=== PATIENT | female | born 1955 | race Caucasian/White ===

== ENCOUNTER 2023-03-22 12:36 | Outpatient (OUT) | payer MEDICARE, SELFPAY ==
--- NOTE | 2023-03-22 12:49 | XR_ITS ---
The [address] [address] Patient Name: NURY RODRIGUEZ MRN: [id number] date: 1955 Sex: F Assigned Patient Location: LAB Current Patient Location: LAB Accession/Order Number: [id number] Exam Date: 03/22/2023 12:52 Report Date: 03/22/2023 20:35 At the request of: SHAIKH NANCY Procedure: XR finger LT min 2V EXAM: XR finger LT min 2V HISTORY: Left thumb pain M79.645 . Soft tissue lump for 3 months. COMPARISON: None. TECHNIQUE: 2 views of the left thumb were obtained. FINDINGS: There is no evidence of an acute fracture or dislocation. There is mild to moderate narrowing of the first carpometacarpal joint and the interphalangeal joint of the thumb. No other significant osseous abnormality is identified. XR/XR finger LT min 2V IMPRESSION: No apparent acute fracture or dislocation. Some degenerative changes are present, as described. No focal abnormality is seen in the deep soft tissues. Electronically authenticated by: CAMERON VELEZ Date: 03/22/2023 20:35
[2023-03-22 14:25] LABS: Chol HDL Ratio 3.2; Cholesterol 214 mg/dL (<=200); HDL Cholesterol 66 mg/dL (40-60); Triglycerides 186 mg/dL (<=150); VLDL CHOLESTEROL 37.2 mg/dL
== END 2023-03-22 12:37 | disposition home or self-care (01) ==
LOC: LAB 12:40
PROVIDERS: PCP Internal Medicine; Visit Provider Internal Medicine
DX: E78.5 Hyperlipidemia, unspecified (principal); M79.645 Pain in left finger(s)
CPT/HCPCS: 36415; 73140; 80061

== ENCOUNTER 2023-08-28 09:23 | Outpatient (OUT) | payer MEDICARE, SELFPAY ==
--- NOTE | 2023-08-28 09:54 | CT_ITS ---
[address] [address] Patient Name: NURY RODRIGUEZ MRN: [id number] date: 1955 Sex: F Assigned Patient Location: CT Current Patient Location: CT Accession/Order Number: [id number] Exam Date: 08/28/2023 09:50 Report Date: 08/28/2023 10:21 At the request of: SHAIKH NANCY Procedure: CT lung screening low-dose EXAMINATION: CT lung screening low-dose HISTORY: Encounter For Lung Cancer Screening COMPARISON: 04/05/2022 TECHNIQUE: Axial, Coronal, and Sagittal images were created without the administration of IV contrast material. Dose reduction techniques were achieved by using automated exposure control and/or adjustment of mA and/or kV according to patient size and/or use of iterative reconstruction technique. FINDINGS: LUNGS: Minimal centrilobular and paraseptal emphysema with an upper lobe predominance no new pulmonary nodule or mass PLEURA: No mass, effusion, or pneumothorax. VASCULATURE: No abnormality. VERN: No mass or pathologic adenopathy. MEDIASTINUM: No mass or pathologic adenopathy. CARDIAC: No enlargement, pericardial thickening, or significant calcification. CORONARY ARTERIES: AORTA: No aneurysm or dissection. CHEST WALL: No mass or axillary adenopathy BONES: No bone lesion or fracture. Mild degenerative changes LIMITED ABDOMEN: No suspicious findings. Limited images of the upper abdomen. OTHER: Negative. CT/CT lung screening low-dose IMPRESSION: LUNG SCREENING: Lung-RADS Category 1 Negative. No nodules and definitely benign nodules. Continue annual screening with LDCT in 12 months. Electronically authenticated by: HOLLIE HARDY Date: 08/28/2023 10:21
[2023-08-28 10:22] LABS: Basophils Percent Auto 0.6 % (0.2-2.0); Eosinophils Absolute Auto 0.1 10^3/uL (0.0-0.7); Eosinophils Percent Auto 1.6 % (0.9-7.0); Hemoglobin 13.1 g/dL (12.0-16.0); Immature Granulocytes Abs Auto 0.01 10^3/uL (0.00-0.03); Immature Granulocytes Pct Auto 0.2 % (0.0-0.5); Lymphocytes Absolute Auto 2.2 10^3/uL (1.2-3.8); Lymphocytes Percent Auto 43.6 % (20.5-60.0); Mean Corpuscular Volume 96.9 fL (81.0-99.0); Mean Platelet Volume 11.4 fL (9.5-13.5); Monocytes Absolute Auto 0.4 10^3/uL (0.3-0.8); Monocytes Percent Auto 7.6 % (1.7-12.0); Neutrophils Absolute Auto 2.3 10^3/uL (1.4-6.5); Neutrophils Percent Auto 46.4 % (43.0-75.0); Platelet Count 194 10^3/uL (150-450); Red Blood Count 4.23 10^6/uL (4.20-5.40); Red Cell Distribution Width 13.8 % (11.0-15.0)
[2023-08-28 11:17] LABS: Alanine Aminotransferase 26 U/L (14-59); Albumin Globulin Ratio 1.3; Albumin Level 4.1 g/dL (3.4-5.0); Alkaline Phosphatase 81 U/L (46-116); Aspartate Amino Transferase 14 U/L (15-37); BUN Creatinine Ratio 25.7; Bilirubin Total 0.6 mg/dL (0.2-1.0); Calcium 9.1 mg/dL (8.5-10.1); Carbon Dioxide 26.2 mmol/L (21.0-32.0); Chloride 105 mmol/L (98-107); Chol HDL Ratio 3.5; Cholesterol 258 mg/dL (<=200); Estimated GFR (African America >60 (>=60); Estimated GFR (Non-African Ame >60 (>=60); Globulin 3.1 g/dL; Glucose 93 mg/dL (74-106); HDL Cholesterol 74 mg/dL (40-60); Potassium 4.2 mmol/L (3.5-5.1); Sodium 140 mmol/L (136-145); Total Protein 7.2 g/dL (6.4-8.2); Triglycerides 114 mg/dL (<=150); VLDL CHOLESTEROL 22.8 mg/dL
== END 2023-08-28 09:24 | disposition home or self-care (01) ==
LOC: CT 09:24
PROVIDERS: PCP Internal Medicine; Visit Provider Internal Medicine
DX: G25.81 Restless legs syndrome (principal); E78.49 Other hyperlipidemia; Z87.891 Personal history of nicotine dependence; Z12.2 Encounter for screening for malignant neoplasm of respiratory organs
CPT/HCPCS: 36415; 71271; 80053; 80061; 82607; 82728; 85025

== ENCOUNTER 2023-09-17 11:20 | Emergency (ER) | payer MEDICARE, SELFPAY ==
[2023-09-17 11:22] VITALS: BP 122/99; PULSE 115; RESP 20; TEMP 36.6; O2SAT 94; BMI 23.8
--- OUTSIDE RECORDS SUMMARY | 2023-09-17 11:30 | XMS_ITS | CCD ---
Author Name Unknown Address [address] [facility] [address] [place] [address] Organization [facility] Care Team Providers Care Electronic Field Service Engineer Name Role Phone SHAIKH Trino CRUZ Admitting Unavailable SHAIKH Trino CRUZ Attending Unavailable SHAIKH Trino CRUZ Primary Care Unavailable DR HOLLIE HARDY V Consulting Unavailable FASHAIKH Trino SALEH Consulting Unavailable SHAIKH Trino CRUZ Admitting Unavailable SHAIKH Trino CRUZ Attending Unavailable SHAIKH Trino CRUZ Consulting Unavailable MD Luis Carlton II Attending Provider [phone] Luis Carlton II Unavailable Luis Carlton II Attending Fabiano SANDERSON FAMILY, PHYSICIAN Primary Care Unavailable Luis Carlton II Admitting UnavailLuis Talavera II Attending Unavailnathan e NO FAMILY, PHYSICIAN Primary Care Unavailable Luis Carlton II Admitting UnavailSHAIKH Izaguirre Attending Unavailable Medications Current Medications Medication Drug Class(es) Dates Sig (Normalized) Sig (Original) atorvastatin 20 mg oral tablet (3 sources) HMG-CoA Reductase Inhibitor Atorvastatin Calcium 20 MG Oral for 90 Days Active calcium carbonate 600 mg / cholecalciferol 125 unt oral tablet (3 sources) Vitamin D Start: 05-12-2023 take 1 tablet by mouth every twelve hours Calcium-Vitamin D 600-3.125 MG-MCG 1 tablet Orally Twice a day for 30 day(s) Apr, Active meloxicam 15 mg oral tablet (3 sources) Nonsteroidal Anti-inflammatory Drug Start: 05-12-2023 take 1 tablet by mouth every twenty-four hours Meloxicam 15 MG 1 tablet Orally Once a day for 30 days Apr, Active naproxen 500 mg oral tablet (3 sources) Nonsteroidal Anti-inflammatory Drug take 1 tablet by mouth twice daily as needed for pain Naproxen 500 MG TAKE 1 TABLET BY MOUTH 2 TIMES PER DAY NEEDED FOR PAIN Oral for 90 Days Active traMADol hydrochloride 50 mg oral tablet (3 sources) Opioid Agonist take 1 tablet by mouth every twenty-four hours traMADol HCl 50 MG 1 tablet as needed Orally Once a day prn Active Completed/Discontinued Medications Medication Drug Class(es) Dates Sig (Normalized) Sig (Original) triamcinolone acetonide 40 mg/ml injectable suspension (4 sources) Corticosteroid Start: 07-13-2023 Kenalog-40 Jun, 40 mg Start: 07-13-2023 Kenalog-40 Jun, 120 mg Problems Active Problems Problem Classification Problem Date Documented Date Episodic/Chronic Disorders of lipid metabolism (4 sources) Hyperlipidemia, unspecified; Translations: [HYPERLIPIDEMIA UNSPECIFIED] Onset: 10-27-2022 Chronic Osteoarthritis (14 sources) Osteoarthritis of left hip joint; Translations: [Unilateral primary osteoarthritis, left hip] Chronic Osteoporosis (2 sources) Age-related osteoporosis without current pathological fracture; Translations: [Age-related osteoporosis without current pathological fracture] Chronic Other aftercare (1 source) Other senior care (current) drug therapy Episodic Other connective tissue disease (2 sources) Impingement syndrome of left shoulder Episodic Other non-traumatic joint disorders (1 source) Pain in left hip Episodic Other nutritional; endocrine; and metabolic disorders (2 sources) Morbid (severe) obesity due to excess calories; Translations: [Obesity, morbid, BMI 50 or higher] Chronic Other screening for suspected conditions (not mental disorders or infectious disease) (5 sources) Encounter for screening mammogram for malignant neoplasm of breast; Translations: [Encounter for screening for malignant neoplasm of respiratory organs] Onset: 04-05-2022 Episodic Unclassified (1 source) Pain in left shoulder; Translations: [Pain in left shoulder] Onset: 07-13-2023 Unclassified (1 source) Pain in left hip; Translations: [Pain in left hip] Onset: 05-12-2023 Past or Other Problems Problem Classification Problem Date Documented Da te Episodic/Chronic Screening and history of mental health and substance abuse codes (1 source) Personal history of nicotine dependence; Translations: [PERSONAL HISTORY OF NICOTINE DEPEND] Onset: 04-10-2022 Episodic Results Test Name Value Interpretation Reference Range Facility XR shoulder LT min 2V*on XR shoulder LT min 2V* [facility] [address] [place] [address] XRay Report Signed Patient: Nadya Rodriguez MR#: [id number] : 1955 Acct:[id number] Age/Sex: 68 / F ADM Date: 07/13/23 Loc: [facility] Room: Type: [facility] Attending Dr: Luis Carlton II, MD Copies to: Luis Carlton MD Ordering Provider: Luis Carlton MD Date of Service: 07/13/23 XR/XR shoulder LT min 2V*: PAIN 3 views LEFT shoulder plain film HISTORY: Generalized LEFT shoulder pain for weeks COMPARISON: None ACUTE FINDINGS: None DEGENERATIVE CHANGE: Spurring of acromioclavicular joint and glenohumeral joint. Adequate joint space. SOFT TISSUE FINDINGS: Unremarkable JOINT EFFUSION: None POSTOP CHANGES: None BONY MINERALIZATION: Adequate XR/XR shoulder LT min 2V* IMPRESSION: Degenerative change. Impression dictated by: Angel Luis King M.D.07/13/2023 2:02 PM Dictation Location: [place] [address] Transcribed By: [facility] 07/13/23 140 Dictated By: Angel Luis King DO 07/13/23 140 Signed By: 07/13/23 140 Normal [facility] XR shoulder LT min 2V* [facility] [employer] Other XR shoulder LT min 2V* [facility] [employer] Other XR shoulder LT min 2V* [address] [facility] [employer] Other XR shoulder LT min 2V* [place] [address] [employer] [facility] [employer] Other XR shoulder LT min 2V* XRay Report [facility] Other XR shoulder LT min 2V* Signed [facility] Other XR shoulder LT min 2V* Patient: Nadya Rodriguez MR#: [id number] [facility] Other XR shoulder LT min 2V* 1147 [employer] Other XR shoulder LT min 2V* : 1955 Acct:[id number] [facility] Other XR shoulder LT min 2V* Age/Sex: 68 / F ADM Date: 07/13/23 [facility] Other XR shoulder LT min 2V* Loc: [facility] Room: Type: REG CLI [facility] Other XR shoulder LT min 2V* Attending Dr: Luis Carlton II, MD [facility] Other XR shoulder LT min 2V* Copies to: Luis Carlton MD [facility] Other XR shoulder LT min 2V* Ordering Provider: Luis Carlton MD [facility] Other XR shoulder LT min 2V* Date of Service: 07/13/23 [employer] Other XR shoulder LT min 2V* XR/XR shoulder LT min 2V*: PAIN [employer] Other XR shoulder LT min 2V* 3 views LEFT shoulder plain film [employer] Other XR shoulder LT min 2V* HISTORY: Generalized LEFT shoulder pain for weeks [facility] Other XR shoulder LT min 2V* COMPARISON: None [employer] Other XR shoulder LT min 2V* ACUTE FINDINGS: None [facility] Other XR shoulder LT min 2V* DEGENERATIVE CHANGE: Spurring of acromioclavicular joint and glenohumeral joint. Adequate joint [employer] Other XR shoulder LT min 2V* space. [employer] Other XR shoulder LT min 2V* SOFT TISSUE FINDINGS: Unremarkable [facility] Other XR shoulder LT min 2V* JOINT EFFUSION: None [facility] Other XR shoulder LT min 2V* POSTOP CHANGES: None [facility] Other XR shoulder LT min 2V* BONY MINERALIZATION: Adequate [facility] Other XR shoulder LT min 2V* XR/XR shoulder LT min 2V* [employer] Other XR shoulder LT min 2V* IMPRESSION: Degenerative change. [facility] Other XR shoulder LT min 2V* Impression dictated by: Angel Luis King M.D.07/13/2023 2:02 PM [facility] Other XR shoulder LT min 2V* Dictation Location: [place] [address] [employer] Other XR shoulder LT min 2V* Transcribed By: [facility] 07/13/23 [facility] [employer] Other XR shoulder LT min 2V* Dictated By: Angel Luis King DO 07/13/23 [facility] [employer] Other XR shoulder LT min 2V* Signed By: [employer] Other XR shoulder LT min 2V* 07/13/23 [facility] [employer] Other XR hip LT min 2V(w/wo pelvis )*on 05-12-2023 XR hip LT min 2V(w/wo pelvis)* [facility] [place] [address] [place] [address] XRay Report Signed Patient: Nadya Rodriguez MR#: [id number] : 1955 Acct:[id number] Age/Sex: 68 / F ADM Date: 05/12/23 Loc: [facility] Room: Type: [facility] CLI Attending Dr: Luis Carlton II, MD Copies to: Luis Carlton MD Ordering Provider: Luis Carlton MD Date of Service: 05/12/23 XR/XR hip LT min 2V(w/wo pelvis)*: PAIN ([id number]) XR/XR knee LT 4V*: PAIN CLINICAL DATA: Posterior left hip pain radiating to the groin and medial left knee pain and swelling. No recent injury. AP PELVIS AND LEFT HIP - 2 views COMPARISON: None Weightbearing AP view the pelvis and crosstable lateral view of the left hip were obtained. There is a right hip prosthesis which appears intact and in appropriate position. There is no acute fracture or dislocation. There is narrowing of the superior hip joint space on the left. There is mild hypertrophy at the superior acetabulum and mild to moderate at the periphery of the femoral head. The SI joints are intact and show minor sclerosis. There is dextroscoliotic curvature and degenerative change involving the lower imaged lumbar spine. No soft tissue abnormalities are noted. XR/XR knee LT 4V* IMPRESSION: DEGENERATIVE CHANGES OF THE LEFT HIP AND LOWER LUMBAR SPINE WHERE SCOLIOTIC CURVATURE IS ALSO PRESENT. LEFT KNEE - 4 views COMPARISON: None Standing AP, lateral, skiers and sunrise views were obtained. There is no acute fracture or dislocation. There is slight medial subluxation of the patella. There is narrowing of the medial tibiofemoral joint compartment with bone to bone contact. Tricompartment marginal spurring is seen. There is a chronic-appearing bony ossicle along the margin of the medial femoral condyle. There is a trace amount of joint fluid. No soft tissue swelling is noted. IMPRESSION: DEGENERATIVE CHANGES, DESCRIBED. Impression dictated by: Mariel Melchor M.D.05/12/2023 2:13 PM Dictation Location: [place] [address] Transcribed By: [facility] 05/12/23 1413 Dictated By: Mariel Melchor MD 05/12/23 1408 Signed By: 05/12/23 1413 Normal [facility] LIPID PROFILEon 10-27-2022 CHOL-HDL RATIO NORM SEE BELOW Normal [facility] Comment on above: Result Comment: 3.3 - 4.4 LOW RISK 4.4 - 7.1 AVERAGE RISK 7.1 - 11.0 MODERATE RISK >11.0 HIGH RISK Performed By: #### L IPID, LIVER #### [facility] [address] [place] [address] Dr. Favio Cueto Cholesterol [Mass/Vol] 168 mg/dL Normal <=200 [facility] Comment on above: Performed By: #### L IPID, LIVER #### [facility] [address] [place] [address] [address] Favio Cueot Cholesterol in HDL [Mass/Vol] 61 mg/dL Critically high 40-60 [facility] Comment on above: Performed By: #### L IPID, LIVER #### [facility] [address] [place] [address] [address] Favio Cueto Cholesterol in LDL [Mass/Vol] 91.4 mg/dL Normal [facility] Comment on above: Performed By: #### L IPID, LIVER #### [facility] [address] [place] [address] [address] Favio Cueto Cholesterol.total /Cholesterol in HDL [Mass ratio] 2.8 {ratio} Normal [facility] Comment on above: Performed By: #### L IPID, LIVER #### [facility] [address] [place] [address] [address] Favio Cueto HDL NORMAL > or = 60 mg/dl - LO W CARDIOVASCULAR RISK <40 mg/dl - HIGH CARDIOVASCULAR RISK Normal [facility] Comment on above: Performed By: #### L IPID, LIVER #### [facility] [address] [place] [address] Dr. Favio Cueto LDL CALC NORMAL SEE BELOW Normal [facility] Comment on above: Result Comment: <100 mg/dl OPTIMAL 100 - 129 mg/dl NEAR OR ABOVE OPTIMAL 130 - 159 mg/dl BORDERLINE HIGH 160 - 189 mg/dl HIGH >190 mg/dl VERY HIGH Performed By: #### L IPID, LIVER #### [facility] [address] [place] [address] [address] Favio Cueto Triglyceride [Mass/Vol] 78 mg/dL Normal <=150 [facility] Comment on above: Performed By: #### L IPID, LIVER #### [facility] [address] [place] [address] [address] Favio Cueto VLDL CALC 15.6 mg/dL Normal [facility] Comment on above: Performed By: #### L IPID, LIVER #### [facility] [address] [place] [address] [address] Favio Cueto LIVER PROFILEon 10-27-2022 Albumin [Mass/Vol] 4.3 g/dL Normal 3.4-5.0 [facility] Comment on above: Performed By: #### L IPID, LIVER #### [facility] [address] [place] [address] [address] Favio Cueto Albumin/Globulin [Mass ratio] 1.5 {ratio} Normal [facility] Comment on above: Performed By: #### L IPID, LIVER #### [facility] [address] [place] [address] [address] Favio Cueto ALP [Catalytic activity/Vol] 55 U/L Normal 46-116 [facility] Comment on above: Performed By: #### L IPID, LIVER #### [facility] [address] [place] [address] Dr. Favio Cueto ALT [Catalytic activity/Vol] 23 U/L Normal 14-59 [facility] Comment on above: Performed By: #### L IPID, LIVER #### [facility] [address] [place] [address] Dr. Favio Cueto AST [Catalytic activity/Vol] 15 U/L Normal 15-37 [facility] Comment on above: Performed By: #### L IPID, LIVER #### [facility] [address] [place] [address] [address] Favio Cueto BILI, CONJUGATED 0.2 mg/dL Normal 0.0-0.2 [facility] Comment on above: Performed By: #### L IPID, LIVER #### [facility] [address] [place] [address] [address] Favio Cueto Bilirubin [Mass/Vol] 0.7 mg/dL Normal 0.2-1.0 [facility] Comment on above: Performed By: #### L IPID, LIVER #### [facility] [address] [place] [address] [address] Favio Cueto Globulin (S) [Mass/Vol] 2.8 g/dL Normal [facility] Comment on above: Performed By: #### L IPID, LIVER #### [facility] [address] [place], [place] [address] Dr. Favio Cueto Protein [Mass/Vol] 7.1 g/dL Normal 6.4-8.2 [facility] Comment on above: Performed By: #### L IPID, LIVER #### [facility] [address] [place], [place] [address] Dr. Favio Cueto MG MAMM SCREEN 3D ARCHIE CADon 10-27-2022 MG MAMM SCREEN 3D ARCHIE CAD Patient: NADYA RODRIGUEZ Exam Date: 10/27/2022 : 1955 Gender:F Ordering : SHAIKH Rosa CRUZ . Admission #: [id number] Family : Order #: [id number] CLICK HERE TO VIEW EXAM RADIOLOGY REPORT PROCEDURE: MAMMOGRAM SCREENING 3D BILATERAL CAD COMPARISON: None. INDICATIONS: Screening mammography Calculator Name NCI Breast Cancer Risk Assessment Tool 5 Year Breast Cancer Risk 1.30% Lifetime Breast Cancer Risk 5.00% Personal Breast Cancer No Personal Ovarian Cancer No Treatments None Family Cancers None LOCATION: [facility] BREAST COMPOSITION: Heterogeneously dense,which may obscure small masses. FINDINGS: DIAGNOSTIC CATEGORY 1--NEGATIVE. Scattered benign-appearing calcifications are present. Scattered benign-appearing lymph nodes are present. RIGHT BREAST: No significant suspicious finding. LEFT BREAST: No significant suspicious finding. RECOMMENDATIONS: ROUTINE MAMMOGRAM AND CLINICAL EVALUATION IN 12 MONTHS. PLEASE NOTE: A NORMAL MAMMOGRAM DOES NOT EXCLUDE THE POSSIBILITY OF BREAST CANCER. A CLINICALLY SUSPICIOUS PALPABLE LUMP SHOULD BE BIOPSIED. Dictated by: Hollie Hardy MD on 11/23/2022 at 08:15 Approved by: Hollie Hardy MD on 11/23/2022 at 08:22 Normal [facility] CT LUNG CANCER SCREENINGon 0 04-05-2022 CT LUNG CANCER SCREENING EXAMINATION: CT LUNG CANCER SCREENING HISTORY: Nicotine dependence COMPARISON: No relevant comparison available. TECHNIQUE: Axial, Coronal, and Sagittal images were created without the administration of IV contrast material. Dose reduction techniques were achieved by using automated exposure control and/or adjustment of mA and/or kV according to patient size and/or use of iterative reconstruction technique. FINDINGS: LUNGS: Minimal emphysema with a biapical predominance. Mild peribronchial thickening. No significant pulmonary nodule or mass. PLEURA: No mass, effusion, or pneumothorax. VASCULATURE: No abnormality. VERN: No mass or pathologic adenopathy. MEDIASTINUM: No mass or pathologic adenopathy. CARDIAC: No enlargement or pericardial effusion. Coronary atherosclerosis. AORTA: No aneurysm or dissection. CHEST WALL: No mass or axillary adenopathy BONES: No bone lesion or fracture. LIMITED ABDOMEN: No suspicious findings. Limited images of the upper abdomen. OTHER: Negative. IMPRESSION: LUNG SCREENING: Lung-RADS Category 1 Negative. No nodules and definitely benign nodules. Continue annual screening with LDCT in 12 months. Electronically authenticated by: HOLLIE HARDY Date: 2022-04-05 10:37 Normal [facility] Encounters Encounter Date Encounter Type Care Provider Facility Start: 08-23-2023 End: 08-23-2023 ambulatory Luis Carlton II Other [facility] Other Start: 08-23-2023 Office outpatient vi sit 40 minutes Luis Carlton II [facility] Start: 08-08-2023 End: 08-08-2023 ambulatory SHAIKH ANGELDanna Not Available Start: 07-13-2023 Office outpatient vi sit 25 minutes Luis Carlton II [facility] Start: 07-13-2023 End: 07-13-2023 ambulatory Luis Carlton II [employer] Other Start: 07-10-2023 End: 07-10-2023 ambulatory Luis Carlton II Other [facility] Other Start: 07-10-2023 Telephone encounter Luis Carlton II [facility] Start: 05-12-2023 End: 05-12-2023 ambulatory Luis Carlton II Facility:[facility] Start: 05-12-2023 End: 05-12-2023 ambulatory MD Luis Carlton II Work Phone: [facility] Work Phone: Start: 05-12-2023 End: 05-12-2023 Patient encounter procedure MD Luis Carlton II Work Phone: [facility] Start: 10-27-2022 End: 10-28-2022 ambulatory OLSEN Trino STAUFFERNMDanna Facility:[facility] Start: 04-05-2022 End: 04-06-2022 ambulatory [facility] Facility: Procedures Date Procedure Procedure Detail Performing Clinician Start: 05-12-2023 Plain X-ray of left hip MD Luis Carlton II Work Phone: Start: 05-12-2023 Radiologic examinati on of knee MD Luis Carlton II Work Phone: Payers Date Payer Category Payer Private Health Insurance [id number] 2023 Self-pay 1957 Medicare [id number] 1955 Unknown [id number] 2.16.84 [id number] 1955 Unknown [id number] 2.16.84 [id number] 1955 Unknown [id number] 2.16.84 [id number] Unknown [id number] 2.16.8 [id number] Unknown [id number] 2.16.8 [id number] Social History Date Type Detail Facility Tobacco smoking status NHIS Unknown if ever smoked [facility] Work Phone: Start: 1955 Sex Assigned At Female F [facility] Sex Assigned At Sex Assigned At Bir th [place] [facility] Other Evaluation note 08-23-2023 Note Date & Type Note Facility 08-23-2023 Evaluation note Encounter Date Diagnosis Assessment Notes Jul, Primary osteoarthritis of left knee (ICD-10 - M17.12) Jul, Primary osteoarthritis of left hip (ICD-10 - M16.12) Jul, Glenohumeral arthritis, left (ICD-10 - M19.012) Jul, Impingement syndrome, shoulder, left (ICD-10 - M75.42) Jul, Obesity, morbid, BMI 50 or higher (ICD-10 - E66.01) Jul, Age-related osteoporosis without current pathological fracture (ICD-10 - M81.0) Jul, 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 We again discussed the concept of referred pain. I explained to her that the fact that she did not get any relief with the injection into her knee suggest that any of the knee pain that she feels is more than likely related to referred pain from her left hip. As result, I ultimately recommended proceeding with a left hip injection versus left total hip arthroplasty. Patient is already had a right total hip arthroplasty and doing actually fantastic. She would prefer to avoid the injection as this would only prolong the process. I think given her deformity and her significant inhibited quality of life this would be warranted to proceed directly with definitive treatment and a left total hip. We also discussed the fact that her mother just had a heart attack and is in the hospital. 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 We did discuss that we will need to hold off on any surgery until she has all things worked out with her mom in regards to providing her caregiver. I explained specifically to the patient that she cannot be a caregiver from her mom and she in fact herself needs a caregiver to recover from her major left hip surgery. 1. Left COLTEN - DVT prophylaxis: Aspirin - Antibiotics: Ancef - NSAID: Celebrex - Implants: [employer]venir Complete, G7 - Disposition: Same-day discharge-she lives at home with her who would be able to help her in the postoperative period. 2. Preop screening labs will be ordered including: - hemoglobin - serum albumin - 25-OH Vit D - HgbA1c - serum cotinine - MRSA nasal culture 3. Patient will obtain preop clearances including: -PCP 4. Once our office has reviewed the above labs and clearances, we will contact the patient to discuss surgery scheduling. Patient is in agreement with the above plan. 5. The risks involved with surgery and postoperative complications were discussed in relation to the patient's nonmodifiable risk factors including but not limited to the following: Hyperlipidemia All questions were answered after discussing these increased risks. The patient voiced understanding of these increased risks and still wishes to proceed with surgery. 6. The risks involved with surgery and postoperative complications were discussed in relation to the patient's modifiable risk factors including but not limited to the following: None identified at this time All questions were answered after discussing these increased risks. The patient voiced understanding of these increased risks and still wishes to proceed with surgery. The patient has tried and failed all conservative treatment options to include: oral anti-inflammato miguel, physical therapy, and assistive devices. We will move forward with the definitive treatment option and schedule the patient for the above mentioned procedure after we have reviewed screening labs and clearances. Patient understands abnormal screening labs or absent clearances could delay their surgery. [facility] Other Evaluation note 07-13-2023 Note Date & Type Note Facility 07-13-2023 Evaluation note Encounter Date Diagnosis Assessment Notes Jun, Primary osteoarthritis of left knee (ICD-10 - M17.12) Jun, Primary osteoarthritis of left hip (ICD-10 - M16.12) Jun, Glenohumeral arthritis, left (ICD-10 - M19.012) Jun, Impingement syndrome, shoulder, left (ICD-10 - M75.42) Jun, Other In regards to the left hip osteoarthritis, we discussed how this can refer pain to the left knee but she also has left knee primary osteoarthritis. I discussed doing a left hip intra-articular steroid injection but at this point she would prefer to start with a left knee intra-articular steroid injection. I think that this is very reasonable given her significant pain into the left knee. After consent was obtained, the left knee was injected with 3cc Kenalog and 7cc bupivicaine using sterile technique. Patient tolerated the injection well. Nonetheless, I explained to her that given both the hip and the knee being [id number] arthritis I still feel that the most important major surgery to discuss first would be a left hip arthroplasty. She agreed. We will hold off on this though until sometime in the first of the year. In regards to the left shoulder, we discussed that her inflammation within the shoulder has led to impingement and decreased range of motion. As result I recommended a left subacromial steroid injection. Patient agreed. Utilizing sterile technique, the left subacromial bursa was injected with 1 cc of Kenalog and 2 cc bupivacaine. Patient tolerated the injection well. We will get her into formal physical therapy for strengthening and range of motion of the left shoulder. I will plan to see her back in 6 weeks for reevaluation. [facility] Other Evaluation note 07-10-2023 Note Date & Type Note Facility 07-10-2023 Evaluation note Encounter Date Diagnosis Assessment Notes Jun, Left hip pain (ICD-10 - M25.552) [facility] Other Evaluation note Note Date & Type Note Facility Evaluation note No assessment information availa [facility] Work Phone: History general Narrative - Reported Note Date & Type Note Facility History general Narrative - Reported Type Medical History hypercholesterolemia Medical History emphysema-mild Surgical History C section x2 Surgical History tonsillectomy Surgical History RTHA Surgical History ear surgery [facility] [employer] Other Summary Purpose Family History No Family History Records FoundNo Family History Records FoundNo Family History Records Found Advance Directives No Advanced Directives Records FoundNo Advanced Directives Records FoundNo Advanced Directives Records Found Additional Source Comments INFORMATION SOURCE (unrecogn ized section and content) DATE CREATED AUTHOR 11/24/2022 [facility] DATE CREATED AUTHOR AUTHOR'S ORGANIZ ATION 07/20/2023 [facility] DATE CREATED AUTHOR AUTHOR'S ORGANIZ ATION 08/09/2023 [facility] EPIC Care Teams (unrecognized sec tion and content) Team Status: Inactive Member Role Status Dates Luis Carlton II, MD Attending Provider Active Goals (unrecognized section and content) Goals may be documented in a n alternate sectionNo InformationNo InformationNo Information REASON FOR VISIT (unrecogniz ed section and content) Med RefillOP SP LT KNEE LT S HOULDER PAIN REQUESTING INJECTION1 MONTH FOR RECORDS PERTAINING TO PATIENTS WHO ARE OR HAVE BEEN ENROLLED IN A CHEMICAL DEPENDENCY/SUBSTANCEABUSE PROGRAM, SOME INFORMATION MAY BE OMITTED. This clinical summary was aggregated from multiple sources. Caution should be exercised in using it in the provision of clinical care. This summary normalizes information from multiple sources, and as a consequence, information in this document may materially change the coding, format and clinical context of patient data. In addition, data may be omitted in some cases. CLINICAL DECISIONS SHOULD BE BASED ON THE PRIMARY CLINICAL RECORDS. [employer] [facility]. provides no warranty or guarantee of the accuracy or completeness of information in this document.
--- NOTE | 2023-09-17 11:31 | CT_ITS ---
The [address] [address] Patient Name: NURY RODRIGUEZ MRN: [facility]:[id number] date: 1955 Sex: F Assigned Patient Location: ER Current Patient Location: Accession/Order Number: [id number] Exam Date: 09/17/2023 11:47 Report Date: 09/17/2023 12:21 At the request of: ELSA ALVARADO Procedure: CT abdomen pelvis w con EXAMINATION: CT abdomen pelvis w con INDICATION: low abd pain. COMPARISON: None. TECHNIQUE: Multiple contiguous axial CT images of the abdomen and pelvis were obtained after the administration of intravenous contrast. Sagittal and coronal reconstructions were performed. Dose reduction techniques were achieved by using: automated exposure control and/or adjustment of mA and /or kV according to patient size and/or use of iterative reconstruction technique. FINDINGS: LOWER CHEST: No significant abnormality. ABDOMEN AND PELVIS: LIVER: Diffuse fatty infiltration of the liver. BILIARY SYSTEM: Decompressed gallbladder. No biliary ductal dilatation. PANCREAS: Unremarkable. SPLEEN: Unremarkable. ADRENAL GLANDS: Normal. URINARY SYSTEM: Small bilateral renal cysts, largest measuring 1.4 cm. No hydronephrosis or urolithiasis. Pelvic floor laxity with at least moderate sized cystocele incompletely imaged on this exam. REPRODUCTIVE: Unremarkable. GASTROINTESTINAL TRACT: Long segment circumferential wall thickening and edema with mild inflammatory stranding of the descending, transverse, and sigmoid colon. The bowel is normal in caliber. Mild colonic diverticulosis without diverticulitis. Normal appendix. VESSELS: Nonaneurysmal abdominal aorta with moderate atherosclerotic calcifications. Patent abdominal vasculature. LYMPH NODES: No adenopathy. PERITONEUM: No ascites or pneumoperitoneum. MUSCULOSKELETAL: SOFT TISSUES: Tiny fat-containing umbilical hernia. BONES: No acute osseous abnormality or suspicious osseous lesion. Right hip arthroplasty noted. LOPEZ: (series:image) CT/CT abdomen pelvis w con IMPRESSION: 1. Colitis involving the transverse, descending and sigmoid colon, likely infectious or inflammatory. 2. Colonic diverticulosis without diverticulitis. 3. Hepatic steatosis. 4. Pelvic floor laxity with cystocele. Electronically authenticated by: ANGELES ROSENBAUM Date: 09/17/2023 12:21
--- NOTE | 2023-09-17 11:33 | ED_ITS ---
HPI - Abdominal Pain General Chief Complaint: Abdominal Pain Stated Complaint: ABDOMINAL PAIN Time Seen by Provider: 09/17/23 11:24 Source: patient Mode of arrival: walk-in History of Present Illness HPI narrative: 68-year-old female presents for lower abdominal pain. She felt constipated and took some milk of magnesia last night about 11:00 PM. She then started having diarrhea and it was bloody, bright red. She complains of bilateral lower abdominal pain. No fever or vomiting and she has never had diverticulitis previously. The pain is moderate and continuous. Related Data Previous Rx's Medication Instructions Recorded ciprofloxacin HCl 500 mg tablet 500 mg PO Q12H #20 tabs 09/17/23 (Cipro) metronidazole 500 mg tablet 500 mg PO TID #30 tabs 09/17/23 Allergies Allergy/AdvReac Type Severity Reaction Status Date / Time No Known Drug Allergies Allergy Verified 09/17/23 11:27 Review of Systems ROS Narrative A ten point review of systems is negative except as noted above. Exam Narrative Exam Narrative: Nurses note and vital signs reviewed and patient is not hypoxic. General: The patient appears mildly uncomfortable and in no apparent distress. Skin: Warm, dry, no pallor noted. There is no rash noted. Head: Normocephalic, atraumatic Eye: Normal conjunctiva, no drainage Ears, Nose, Mouth, and Throat: oral mucosa is moist. Nares patent. Cardiovascular: Regular Rate and Rhythm Respiratory: Patient is in no distress, no accessory muscle use, lungs are clear to auscultation, no wheezing, rales or rhonchi Back: non-tender GI: Tenderness across her lower abdomen without distention or rebound. Musculoskeletal: The patient has no evidence of calf tenderness, no pitting edema, symmetrical pulses noted bilaterally Neurological: A&O, normal speech Psychiatric: Cooperative Constitutional Vital Signs, click to edit/add: Last Vital Signs Temp 97.9 F 09/17/23 11:22 Pulse 115 H 09/17/23 11:22 Resp 20 09/17/23 11:22 BP 122/99 H 09/17/23 11:22 Pulse Ox 94 L 09/17/23 11:22 O2 Del Method Room Air 09/17/23 11:22 Course Vital Signs Vital signs: Vital Signs Temperature 97.9 F 09/17/23 11:22 Pulse Rate 115 H 09/17/23 11:22 Respiratory Rate 20 09/17/23 11:22 Blood Pressure 122/99 H 09/17/23 11:22 Pulse Oximetry 94 L 09/17/23 11:22 Oxygen Delivery Method Room Air 09/17/23 11:22 Temperature 97.9 F 09/17/23 11:22 Pulse Rate 115 H 09/17/23 11:22 Respiratory Rate 20 09/17/23 11:22 Blood Pressure 122/99 H 09/17/23 11:22 Pulse Oximetry 94 L 09/17/23 11:22 Oxygen Delivery Method Room Air 09/17/23 11:22 MDM - Abdominal Pain MDM Narrative Medical decision making narrative: Colitis is identified on the CT scan. Blood work nonspecific. She was given IV Cipro and Flagyl here. We discussed admission versus discharge home and she does not feel that she needs to be admitted to the hospital. She will follow-up with her PCP and return if symptoms worsen. Treatment diagnosis and follow-up were discussed with the patient. Differential Diagnosis Differential diagnosis: Likely abdominal pain, small bowel obstruction and other (Colitis, diverticulitis, gastroenteritis) Lab Data Attestation: I reviewed the patient's lab results. Labs: Lab Results 09/17/23 09/17/23 Range/Units 11:33 12:02 WBC 12.0 H (4.0-11.0) 10^3/uL RBC 4.66 (4.20-5.40) 10^6/uL Hgb 14.7 (12.0-16.0) g/dL Hct 44.7 (36.0-48.0) % MCV 95.9 (81.0-99.0) fL MCH 31.5 (26.7-34.0) pg MCHC 32.9 (29.9-35.2) g/dL RDW 13.7 (11.0-15.0) % Plt Count 195 (150-450) 10^3/uL MPV 11.9 (9.5-13.5) fL Neut % (Auto) 84.6 H (43.0-75.0) % Lymph % (Auto) 8.5 L (20.5-60.0) % [place] % (Auto) 6.3 (1.7-12.0) % Eos % (Auto) 0.0 L (0.9-7.0) % Baso % (Auto) 0.3 (0.2-2.0) % Neut # (Auto) 10.2 H (1.4-6.5) 10^3/uL Lymph # (Auto) 1.0 L (1.2-3.8) 10^3/uL [place] # (Auto) 0.8 (0.3-0.8) 10^3/uL Eos # (Auto) 0.0 (0.0-0.7) 10^3/uL Baso # (Auto) 0.0 (0.0-0.1) 10^3/uL Abs Immat Gran (auto) 0.04 H (0.00-0.03) 10^3/uL Imm/Tot Granulo (auto) 0.3 (0.0-0.5) % Sodium 145 (136-145) mmol/L Potassium 4.0 (3.5-5.1) mmol/L Chloride 106 (98-107) mmol/L Carbon Dioxide 25.2 (21.0-32.0) mmol/L Anion Gap 17.8 BUN 25.0 H (7.0-18.0) mg/dL Creatinine 0.92 (0.55-1.02) mg/dL Est GFR ( Amer) >60 (>=60) Est GFR (Non-Af Amer) >60 (>=60) BUN/Creatinine Ratio 27.2 Glucose 138 H (74-106) mg/dL Calcium 9.7 (8.5-10.1) mg/dL Stool Occult Blood Positive A Imaging Data CT scan - abdomen: Radiologist's impression: ITS Impressions Abdomen/Pelvis CT 09/17/23 11:31 IMPRESSION: 1. Colitis involving the transverse, descending and sigmoid colon, likely infectious or inflammatory. 2. Colonic diverticulosis without diverticulitis. 3. Hepatic steatosis. 4. Pelvic floor laxity with cystocele. Electronically authenticated by: ANGELES ROSENBAUM Date: 09/17/2023 12:21 Discharge Plan Discharge Chief Complaint: Abdominal Pain Clinical Impression: Colitis Patient Disposition: Home, Self-Care Time of Disposition Decision: 12:56 Condition: Good Mode of Transportation: Private Vehicle Prescriptions / Home Meds: New metronidazole 500 mg tablet 500 mg PO TID Qty: 30 0RF ciprofloxacin HCl [Cipro] 500 mg tablet 500 mg PO Q12H Qty: 20 0RF Instructions: Colitis (ED) Stand Alone Forms: Portal Instructions Referrals: Shaikh Santoro MD [Primary Care Provider] - 1 week
[2023-09-17 11:45] LABS: Basophils Percent Auto 0.3 % (0.2-2.0); Hematocrit 44.7 % (36.0-48.0); Hemoglobin 14.7 g/dL (12.0-16.0); Immature Granulocytes Abs Auto 0.04 10^3/uL (0.00-0.03); Immature Granulocytes Pct Auto 0.3 % (0.0-0.5); Lymphocytes Percent Auto 8.5 % (20.5-60.0); Mean Corpuscular HGB Conc 32.9 g/dL (29.9-35.2); Mean Corpuscular Hemoglobin 31.5 pg (26.7-34.0); Mean Corpuscular Volume 95.9 fL (81.0-99.0); Mean Platelet Volume 11.9 fL (9.5-13.5); Monocytes Absolute Auto 0.8 10^3/uL (0.3-0.8); Monocytes Percent Auto 6.3 % (1.7-12.0); Neutrophils Absolute Auto 10.2 10^3/uL (1.4-6.5); Neutrophils Percent Auto 84.6 % (43.0-75.0); Platelet Count 195 10^3/uL (150-450); Red Blood Count 4.66 10^6/uL (4.20-5.40); Red Cell Distribution Width 13.7 % (11.0-15.0)
[2023-09-17 11:52] LABS: Anion Gap 17.8; BUN Creatinine Ratio 27.2; Calcium 9.7 mg/dL (8.5-10.1); Carbon Dioxide 25.2 mmol/L (21.0-32.0); Chloride 106 mmol/L (98-107); Estimated GFR (African America >60 (>=60); Estimated GFR (Non-African Ame >60 (>=60); Glucose 138 mg/dL (74-106); Sodium 145 mmol/L (136-145)
[2023-09-17] MEDS: 0.9 % SODIUM CHLORIDE 1,000 ML 125 ML IV (12:07)
[2023-09-17] MEDS: ONDANSETRON PF 4 MG/2 ML VIAL IV (12:08)
[2023-09-17 12:21] LABS: Occult Blood Positive
[2023-09-17] MEDS: CIPROFLOXACIN IN 5 % DEXTROSE 400 MG/200 ML PIGGYBACK 200 MG IV (12:34)
[2023-09-17] MEDS: METRONIDAZOLE/SODIUM CHLORIDE 500 MG/100 ML PREMIX 100 MG IV (13:34)
== END 2023-09-17 14:39 | disposition home or self-care (01) ==
PROVIDERS: Emergency Provider Emergency Medicine; PCP Internal Medicine
DX: K52.9 Noninfective gastroenteritis and colitis, unspecified (principal)
CPT/HCPCS: 36415; 74177; 80048; 85025; 87045; 87046; 87427; 96365; 96366; 96368; 96375; 99285; G0328; J0744; J1836; J2405; Q9967

== ENCOUNTER 2023-11-29 09:54 | Outpatient (OUT) | payer MEDICARE, SELFPAY ==
--- NOTE | 2023-11-29 09:57 | MM_ITS ---
Patient Name: NURY RODRIGUEZ MR#: [id number] : 1955 Exam Date: 11/29/2023 Ordering Doctor: Shaikh Rosa Santoro . RADIOLOGY REPORT PROCEDURE: MM TOMOSYNTHESIS SCREENING BI COMPARISON: MG MAMM SCREEN 3D ARCHIE CAD, 10/27/2022. INDICATIONS: screening Calculator Name NCI Breast Cancer Risk Assessment Tool 5 Year Breast Cancer Risk 1.30% Lifetime Breast Cancer Risk 4.80% Personal Breast Cancer No Personal Ovarian Cancer No Treatments None Family Cancers None LOCATION: [facility] BREAST COMPOSITION: The breasts are heterogeneously dense,which may obscure small masses. FINDINGS: DIAGNOSTIC CATEGORY 1--NEGATIVE. NO CHANGE FROM COMPARISON ASSESSMENT. Scattered benign-appearing lymph nodes are present. RIGHT BREAST: No significant suspicious finding. LEFT BREAST: No significant suspicious finding. RECOMMENDATIONS: ROUTINE MAMMOGRAM AND CLINICAL EVALUATION IN 12 MONTHS. PLEASE NOTE: A NORMAL MAMMOGRAM DOES NOT EXCLUDE THE POSSIBILITY OF BREAST CANCER. A CLINICALLY SUSPICIOUS PALPABLE LUMP SHOULD BE BIOPSIED. Dictated by: Yaakov Loving MD on 11/29/2023 at 11:24 Approved by: Yaakov Loving MD on 11/29/2023 at 11:25
--- OUTSIDE RECORDS SUMMARY | 2023-11-29 10:15 | XMS_ITS | CCD ---
Author Organization [facility] Care Team Providers Care Scrap Dealer Name Role Phone FAWWAD, OLSEN H Admitting Unavailable FAWWAD, OLSEN H Attending Unavailable MAUDE, H Primary Care Unavailable DR HOLLIE HARDY V Consulting Unavailable FAWWAD, OLSEN H Consulting Unavailable FAWWAD, OLSEN H Admitting Unavailable FABESSIE, OLSEN H Attending Unavailable MAUDE, OLSEN H Consulting Unavailable MD Luis Carlton II Attending Provider Luis Carlton II Unavailable SHAIKH SANTORO Attending Unavailable MAUDE, Attending Unavailable MAUDE, Attending Unavailable SHAIKH SANTORO Attending Unavailable NO FAMILY, PHYSICIAN Primary Care Provider Unava ilable MD Luis Carlton II Attending Provider MD Stefan Santoro Primary Care Provider Luis Carlton II Admitting Unavailabl e NO FAMILY, PHYSICIAN Primary Care Unavailable Luis Carlton II Attending Unavailabl e Julian STEVENSON, Luis Egan Admitting Unavailabl e NO FAMILY, PHYSICIAN Primary Care Unavailable Luis Carlton II Attending Unavailabl e NO FAMILY, PHYSICIAN Primary Care Unavailable Luis Carlton II Admitting Unavailabl e Julian STEVENSON, Luis Egan Attending Unavailabl e Luis Carlton II Admitting Unavailabl e Fabessie, Primary Care Unavailable Luis Carlton II Attending Unavailabl e Julian STEVENSON, Luis Egan Admitting Unavailabl e Maude, Primary Care Unavailable Luis Carlton II Attending Unavailabl e Luis Carlton II Admitting Shaikh Kemp Primary Care Unavailable Luis Carlton II Attending Unavailnathan e Allergies Allergy Classification Reported Allergen(s) Allergy Type Date of Onset Reaction(s) Facility (1 source) Penicillins Drug allergy (disorder) 10-10-2023 [facility] Repository Medications Current Medications Medication Drug Class(es) Dates Sig (Normalized) Sig (Original) acetaminophen 500 mg oral tablet (4 sources) Start: 10-13-2023 take 1000 mg by mouth every eight hours Acetaminophen Active 1000 MG PO Q8H 180 30 October 13, 2023 12:00am DO NOT RECONCILE UNTIL DOS:10/23/2023 MED TO BED aspirin 81 mg delayed release oral tablet (4 sources) Platelet Aggregation Inhibitor, Nonsteroidal Anti-inflammatory Drug Start: 10-13-2023 take 81 mg by mouth twice daily Aspirin Active 81 MG PO Twice daily 70 35 October 13, 2023 12:00am DO NOT RECONCILE UNTIL DOS:10/23/2023 MED TO BED atorvastatin 20 mg oral tablet (3 sources) HMG-CoA Reductase Inhibitor Atorvastatin Calcium 20 MG Oral for 90 Days Active calcium carbonate 1500 mg / cholecalciferol 0.01 mg oral capsule (7 sources) Vitamin D Start: 10-10-2023 take 1 capsule by mouth once daily Calcium Carbonate-Vitamin D3 Active 1 CAP PO Daily October 10, 2023 12:00am Start: 05-12-2023 take 1 tablet by vi th every twelve hours Calcium-Vitamin D 600-3.125 MG-MCG 1 tablet Orally Twice a day for 30 day(s) Apr, Active celecoxib 200 mg oral capsule (4 sources) Nonsteroidal Anti-inflammatory Drug Start: 10-13-2023 take 200 mg by mouth twice daily Celecoxib Active 200 MG PO Twice daily 60 30 October 13, 2023 12:00am DO NOT RECONCILE UNTIL DOS:10/23/2023 MED TO BED ergocalciferol 1.25 mg oral capsule (4 sources) Provitamin D2 Compound Start: 09-28-2023 take 1250 ug by mouth every week Ergocalciferol (Vitamin D2) Active 1250 MCG PO Q7D 8 60 September 28, 2023 1:00am meloxicam 15 mg oral tablet (3 sources) Nonsteroidal Anti-inflammatory Drug Start: 05-12-2023 take 1 tablet by mouth every twenty-four hours Meloxicam 15 MG 1 tablet Orally Once a day for 30 days Apr, Active naproxen 500 mg oral tablet (7 sources) Nonsteroidal Anti-inflammatory Drug Start: 10-10-2023 take 1 tablet by mouth twice daily as needed for pain Naproxen Active 500 MG PO Twice daily October 10, 2023 12:00am FreeTextSig: TAKE 1 TABLET BY MOUTH 2 TIMES PER DAY NEEDED FOR PAIN Oral; Note: Source Status: Taking; Refills: 0; Qty: 180 Each; Provider: MAUDE OLSEN take 1 tablet by vi th twice daily as needed for pain Naproxen 500 MG TAKE 1 TABLET BY MOUTH 2 TIMES PER DAY NEEDED FOR PAIN Oral for 90 Days Active rosuvastatin calcium 20 mg oral tablet (4 sources) HMG-CoA Reductase Inhibitor Start: 10-10-2023 take 20 mg by mouth once daily in the morning Rosuvastatin Active 20 MG PO Every morning October 10, 2023 12:00am Completed/Discontinued Medications Medication Drug Class(es) Dates Sig (Normalized) Sig (Original) amoxicillin 875 mg / clavulanate 125 mg oral tablet (4 sources) Penicillin-class Antibacterial Start: 10-13-2023 End: 11-08-2023 Amoxicillin-Pot Clavulanate Discontinued TAB PO October 13, 2023 12:00am November 08, 2023 8:48am cefadroxil 500 mg oral capsule (4 sources) Cephalosporin Antibacterial Start: 10-13-2023 End: 11-08-2023 take 500 mg by mouth every twelve hours Cefadroxil Discontinued 500 MG PO Q12H 14 7 October 13, 2023 12:00am November 08, 2023 8:48am DO NOT RECONCILE UNTIL DOS:10/23/2023 MED TO BED docusate sodium 50 mg / sennosides, detention 8.6 mg oral tablet (4 sources) Start: 10-13-2023 End: 11-08-2023 take 2 tablets by mouth once daily Sennosides-Docusat e Sodium (Senokot-S) 8.6-50 mg tablet Discontinued 2 TAB PO daily 60 30 October 13, 2023 12:00am November 08, 2023 8:48am DO NOT RECONCILE UNTIL DOS:10/23/2023 MED TO BED ondansetron 4 mg oral tablet (4 sources) Serotonin-3 Receptor Antagonist Start: 10-13-2023 End: 11-08-2023 take 4 mg by mouth every eight hours Ondansetron Hcl Discontinued 4 MG PO Q8H October 13, 2023 12:00am November 08, 2023 8:48am DO NOT RECONCILE UNTIL DOS:10/23/2023 MED TO BED oxyCODONE hydrochloride 5 mg oral tablet (4 sources) Opioid Agonist Start: 10-13-2023 End: 11-08-2023 take 5 mg by mouth every four hours Oxycodone Discontinued 5 MG PO Q4H 42 October 13, 2023 November 08, 2023 8:48am DO NOT RECONCILE UNTIL DOS:10/23/2023 MED TO BED polyethylene glycol 3350 09183 mg powder for oral solution (4 sources) Osmotic Laxative Start: 10-13-2023 End: 11-08-2023 Polyethylene Glycol 3350 (Miralax) 17 gram/dose powder Discontinued 17 GM PO daily 7 October 13, 2023 12:00am November 08, 2023 8:48am 1 packed mixed with 8 ounces of fluid. DO NOT RECONCILE UNTIL DOS:10/23/2023 MED TO BED traMADol hydrochloride 50 mg oral tablet (11 sources) Opioid Agonist Start: 10-13-2023 End: 11-08-2023 take 50 mg by mouth every six hours Tramadol Discontinued 50 MG PO Q6H 40 October 13, 2023 12:00am November 08, 2023 8:48am DO NOT RECONCILE UNTIL DOS:10/23/2023 MED TO BED Start: 10-10-2023 End: 10-23-2023 take 1 tablet by mouth once daily as needed Tramadol Discontinued 50 MG PO Daily October 10, 2023 12:00am October 23, 2023 7:36am FreeTextSi tablet as needed Orally Once a day; Note: Source Status: Takingprn; Provider: Julian Smith II ( ) take 1 tablet by vi th every twenty-four hours traMADol HCl 50 MG 1 tablet as needed Orally Once a day prn Active triamcinolone acetonide 40 mg/ml injectable suspension (4 sources) Corticosteroid Start: 07-13-2023 Kenalog-40 Jun, 40 mg Start: 07-13-2023 Kenalog-40 Jun, 120 mg Problems Active Problems Problem Classification Problem Date Documented Date Episodic/Chronic Disorders of lipid metabolism (4 sources) Hyperlipidemia, unspecified; Translations: [HYPERLIPIDEMIA UNSPECIFIED] Onset: 10-27-2022 Chronic Osteoarthritis (20 sources) Osteoarthritis of left hip joint; Translations: [Unilateral primary osteoarthritis, left hip] Onset: 10-23-2023 Chronic Osteoporosis (3 sources) Age-related osteoporosis without current pathological fracture; Translations: [Age-related osteoporosis without current pathological fracture] Onset: 09-26-2023 Chronic Other aftercare (2 sources) Other halfway (current) drug therapy; Translations: [Other exterminator helper (current) drug therapy] Onset: 09-26-2023 Episodic Other connective tissue disease (2 sources) [...] organs] Onset: 04-05-2022 Episodic Unclassified (1 source) Encounter for other preprocedural examination; Translations: [Encounter for other preprocedural examination] Onset: 10-13-2023 Unclassified (1 source) Encounter for preprocedural laboratory examination; Translations: [Encounter for preprocedural laboratory examination] Onset: 10-10-2023 Unclassified (1 source) Morbid (severe) obesity due to excess calories; Translations: [Morbid (severe) obesity due to excess calories] Onset: 09-26-2023 Unclassified (1 source) Pain in left shoulder; [...] Test Name Value Interpretation Reference Range Facility ABO/Rh Retypeon 10-23-2023 ABO/RH Recheck Result Positive Normal [facility] Comment on above: Result Comment: PERF ORMED BY: [facility] [address] [place] [id number] PATHOLOGIST COMPARATOR OPERATOR SAMANTHA PEREZ M.D. Amphetamine Screen Ql (U)Ord ered By: Jose Martin Nieves on 10-23-2023 Amphetamines Ql (U) Negative Negative [facility] Barbiturates [Presence] in U rine by Screen methodOrdered By: Jose Martin Nieves on 10-23-2023 Barbiturates Screen Ql (U) Negative Negative [facility] Benzodiazepines Screen Ql (U )Ordered By: Jose Martin Nieves on 10-23-2023 Benzodiazepines Ql (U) Negative Negative [facility] Benzoylecgonine [Presence] i n Urine by Screen methodOrdered By: Jose Martin Nieves on 10-23-2023 Benzoylecgonine Screen Ql (U) Negative Negative [facility] Cannabinoids [Presence] in U rine by Screen methodOrdered By: Jose Martin Nieves on 10-23-2023 Cannabinoids Screen Ql (U) Negative Negative [facility] Comment on above: These are unconfirme d results and should not be used for legal purposes. Drug Cut-Off Concentration: AMPH 1000 ng/mL SONIDO 200 ng/mL MICHELLE 200 ng/mL COCM 300 ng/mL OP 300 ng/mL PCP 25 ng/mL THC 20 ng/mL Drug Screen,Urineon 10-23-19 24 Amphetamine Screen,Urine Negative Normal Negative [facility] Comment on above: Performed By: #### U RDS ####[facility] [id number] Barbiturate Screen,Urine Negative Normal Negative [facility] Comment on above: Performed By: #### U RDS ####[facility] [address] Benzodiazepines Screen,Urine Negative Normal Negative [facility] Comment on above: Performed By: #### U RDS ####[facility] [place] [id number] [facility] [[email or web address]] Cannabinoid Screen,Urine Negative Normal Negative [facility] Comment on above: Result Comment: Thes e are unconfirmed results and should not be used for legal purposes. Drug Cut-Off Concentration: AMPH 1000 ng/mL SONIDO 200 ng/mL MICHELLE 200 ng/mL COCM 300 ng/mL OP 300 ng/mL PCP 25 ng/mL THC 20 ng/mL PERFORMED BY: [facility] [address] [place] [address] PATHOLOGIST COMPARATOR OPERATOR SAMANTHA PEREZ M.D. Performed By: #### U RDS ####[place] [id number] [address] Cocaine Screen,Urine Negative Normal Negative [facility] Comment on above: Performed By: #### U RDS ####[address] Opiate Screen,Urine Negative Normal Negative [facility] Comment on above: Performed By: #### U RDS ####[address] Phencyclidine Screen,Urine Negative Normal Negative [facility] Comment on above: Performed By: #### U RDS ####[place] [id number] [facility] [[email or web address]] Romeo 10-23-2023 L Specimen: [id number] Received: 10/23/23 Status: SHARAPepe Henson Num: [id number] Spec Type: Surgical Subm Dr: Luis Carlton MD Tissues: A Femoral Head - Other than Fracture (LT HIP) Procedures: HE/2, Gross/Micro L3, Decalcification Age/ Patient Sex Location Account Attending Physician JanellNadya pleitez Alex 68/F [place] [id number] Luis Carlton MD SPEC NUM: [id number] RECD: 10/23/23 STATUS: NAHEED WAGNER NUM: [id number] RAMÓN: 10/23/23- SUBM DR: Luis Carlton MD ENTERED: 10/23/23 [facility] DR: SPEC TYPE: Surgical DEPT: S ORDERED: HE/2, Gross/Micro L3, Decalcification ORDERED: HE/2, Gross/Micro L3, Decalcification Pathological Diagnosis Bone And Tissue, Left hip, Arthroplasty: Degenerative Changes Consistent With Osteoarthritis. Gross examination only.? Clinical Information DJD left hip Gross Description Received in formalin labeled with the patient's name, date of and bone and tissue is a 5.5 x 5.5 x 5.0 cm femoral head with a detached 8.0 x 8.0 x 3.7 cm aggregate of martinez-red bone and rubbery, ellington-white tissue. The femoral head has a smooth to granular martinez-ellington articular surface with eburnation identified and focal nodularity of the articular cartilage. The cut surface is yellow-martinez, trabecular, focally hyperemic with thinning of the articular cartilage identified. A gross photo is taken. Gross examination only. CPT Codes 84117 Specimen: [id number] Received: 10/23/23 Status: NAHEED Radha Num: [id number] Spec Type: Surgical Subm Dr: Luis Carlton MD Tissues: A Femoral Head - Other than Fracture (LT HIP) Procedures: HE/2, Gross/Micro L3, Decalcification Patient: Nadya Rodriguez [id number] (Continued) Specimen: Received: 10/23/23 (Continued) Signed (signature on file) Edgardo Doll MD 10/24/231230 Specimen: Received: 10/23/23 Status: NAHEED Hensonramirez Num: [id number] Spec Type: Surgical Subm Dr: Luis Carlton MD Tissues: A Femoral Head - Other than Fracture (LT HIP) Procedures: HE/2, Gross/Micro L3, Decalcification Patient: Nadya Rodriguez [id number] (Continued) Specimen: Received: 10/23/23 (Continued) Gross Photo Specimen: [id number] Received: 10/23/23-1238 Status: NAHEED Hensonramirez Num: [id number] Spec Type: Surgical Subm Dr: Luis Carlton MD Tissues: A Femoral Head - Other than Fracture (LT HIP) Procedures: HE/2, Gross/Micro L3, Decalcification Patient: Nadya Rodriguez [id number] (Continued) Signed (signature on file) Edgardo Doll MD 10/24/23 1231 [facility] Opiates [Presence] in Urine by Screen methodOrdered By: Jose Martin Nieves on 10-23-2023 Opiates Screen Ql (U) Negative Negative [facility] Phencyclidine Screen Ql (U)O rdered By: Jose Martin Nieves on 10-23-2023 Phencyclidine Ql (U) Negative Negative [facility] XR hip LT 1Von 10-23-2023 XR hip LT 1V [facility] Main [address] [address] XRay Report Signed Patient: Nadya Rodriguez MR#: [id number] : 1955 Acct:[id number] Age/Sex: 68 / F ADM Date: 10/23/23 Loc: [place] Room: Type: [facility] Attending Dr: Luis Carlton II, MD Copies to: Luis Carlton MD Ordering Provider: Luis Carlton MD Date of Service: 10/23/23 XR/XR hip LT 1V: ANTERIOR HIP PORTABLE LEFT HIP -8 images: CLINICAL HISTORY: T localization for left hip replacement COMPARISON: 05/12/2023 Multiple AP spot films of the left hip were obtained during and after placement of a hip prosthesis. The hardware appears intact and in appropriate position. No acute fracture or dislocation is noted. Cumulative Air Kerma in mGy: 5.54 mGy Impression dictated by: Mariel Melchor M.D.10/23/2023 3:37 PM Dictation Location: [place] [address] Transcribed By: [facility] 10/23/23 153 Dictated By: Mariel Melchor MD 10/23/23 153 Signed By: 10/23/23 1537 Normal [facility] XR low pelvis w/LT x-table h ipon 10-23-2023 XR low pelvis w/LT x-table hip [address] [address] XRay Report Signed Patient: Nadya Rodriguez MR#: [id number] : 1955 Acct:[id number] Age/Sex: 68 / F ADM Date: 10/23/23 Loc: [place] Room: Type: [facility] Attending Dr: Luis Carlton II, MD Copies to: Luis Carlton MD Ordering Provider: Luis Carlton MD Date of Service: 10/23/23 XR/XR low pelvis w/LT x-table hip: Total Hip, due in PACU Left hip 2 views. Reason for exam: Postop left COLTEN. COMPARISON: Intraoperative study performed earlier today. FINDINGS: Soft tissues demonstrate postoperative change. Left COLTEN without radiographic complication. Partially evaluated right COLTEN without radiographic complication. XR/XR low pelvis w/LT x-table hip Impression: No evidence of hardware complication. Impression dictated by: Nilo Hightower Jr., D.O.10/23/2023 1:26 PM Dictation Location: [place] [address] Transcribed By: [facility] 10/23/23 1326 Dictated By: Nilo Hightower Jr, DO 10/23/23 1325 Signed By: 10/23/23 1326 Normal [facility] Anisocytosis LM Ql (Bld)Orde red By: Luis Carlton on 10-10-2023 Anisocytosis Ql (Bld) Slight [facility] Automated erythrocytes count in urine sediment (number/area)Ordered By: Luis Carlton on 10-10-2023 RBC Auto (Urine sed) [#/Area] 0-1 [HPF] 0-4 [facility] Automated leukocytes count i n urine sediment (number/area)Ordered By: Luis Carlton on 10-10-2023 WBC Auto (Urine sed) [#/Area] 3-4 [HPF] 0-4 [facility] Basic Metabolic Panelon 09-28 Anion gap [Moles/Vol] 13.2 mmol/L Normal 6.0-15.0 [facility] Comment on above: Performed By: #### B MP, SCAN CBC ####[facility] [address] [place] [address] [facility] [[email or web address]]#### FRUC ####[facility] , Calcium [Mass/Vol] 10.0 mg/dL Normal 8.6-10.3 [facility] Comment on above: Result Comment: PERF ORMED BY: [facility] [address] [place] [address] PATHOLOGIST COMPARATOR OPERATOR SAMANTHA PEREZ M.D. Performed By: #### B MP, SCAN CBC ####[facility] [address] [place] [address] [place]#### FRUC ####[facility] , Chloride [Moles/Vol] 105 mmol/L Normal 98-107 [facility] Comment on above: Performed By: #### B MP, SCAN CBC ####[place] [id number] [place] [address] [place]#### FRUC ####[facility] , CO2 [Moles/Vol] 26.0 mmol/L Normal 21.0-31.0 [facility] Comment on above: Performed By: #### B MP, SCAN CBC ####[place] [id number] [place] [address] [place]#### FRUC ####[facility] , Creatinine [Mass/Vol] 0.65 mg/dL Normal 0.60-1.20 [facility] Comment on above: Performed By: #### B MP, SCAN CBC ####[facility] [address] [place] [address] [place]#### FRUC ####[facility] , GFR/1.73 sq M.predicted MDRD (S/P/Bld) [Vol rate/Area] mL/min/{1.73_m2} Normal [facility] Comment on above: Performed By: #### B MP, SCAN CBC ####[facility] [address] [place] [address] [place]#### FRUC ####[facility] , Glucose [Mass/Vol] 73 mg/dL Normal 70-100 [facility] Comment on above: Result Comment: [place] Glucose Reference Range is dependent on time and content of last meal. Glucose of more than 200 mg/dL in a nonstressed, ambulatory subject supports the diagnosis of Diabetes Mellitus. ADA recommended reference range Performed By: #### B MP, SCAN CBC ####[facility] [address] [place] [address] [place]#### FRUC ####[facility] , Potassium [Moles/Vol] 4.2 mmol/L Normal 3.5-5.1 [facility] Comment on above: Performed By: #### B MP, SCAN CBC ####[facility] [address] [place] [address] [place]#### FRUC ####[facility] , Sodium [Moles/Vol] 140 mmol/L Normal 136-145 [facility] Comment on above: Performed By: #### B MP, SCAN CBC ####[facility] [address] [place] [address] [place]#### FRUC ####[facility] , Urea nitrogen [Mass/Vol] 14 mg/dL Normal 7-25 [facility] Comment on above: Performed By: #### B MP, SCAN CBC ####[facility] [address] [place] [address] [place]#### FRUC ####[facility] , Basophils Auto (Bld) [#/Vol] Ordered By: Luis Carlton on 10-10-2023 Basophils (Bld) [#/Vol] 0.0 10*3/uL 0.0-0.2 [facility] Basophils/100 WBC Auto (Bld) Ordered By: Luis Carlton on 10-10-2023 Basophils/100 WBC (Bld) 0.6 % . [facility] Bilirubin Test strip Ql (U)O rdered By: Luis Carlton on 10-10-2023 Bilirubin Ql (U) Negative Negative [facility] Calcium [Mass/volume] in Ser um or PlasmaOrdered By: Luis Carlton on 10-10-2023 Calcium [Mass/Vol] 10.0 mg/dL 8.6-10.3 [facility] Carbon dioxide, total [Moles /volume] in Serum or PlasmaOrdered By: Luis Carlton on 10-10-2023 CO2 [Moles/Vol] 26.0 mmol/L 21.0-31.0 [facility] Chloride [Moles/volume] in S leann or PlasmaOrdered By: Luis Carlton on 10-10-2023 Chloride [Moles/Vol] 105 mmol/L 98-107 [facility] Color Auto (U)Ordered By: Guillerimna Carlton on 10-10-2023 Color (U) Yellow Yellow [facility] Creatinine [Mass/volume] in Serum or PlasmaOrdered By: Luis Carlton on 10-10-2023 Creatinine [Mass/Vol] 0.65 mg/dL 0.60-1.20 [facility] Dipstick and Microscopicon 0 10-10-2023 Appearance (U) Clear Normal Clear [facility] Comment on above: Order Comment: Name Collection Type:: Clean-Voided Midstream Performed By: #### A DDONUAPLUS ####[address] Bacteria,Urine None Seen Normal None Seen [facility] Comment on above: Order Comment: Name Collection Type:: Clean-Voided Midstream Performed By: #### A DDONUAPLUS ####[address] Bilirubin,Urine Negative Normal Negative [facility] Comment on above: Order Comment: Name Collection Type:: Clean-Voided Midstream Performed By: #### A DDONUAPLUS ####[place] [id number] [facility] [[email or web address]] Color (U) Yellow Normal Yellow [facility] Comment on above: Order Comment: Name Collection Type:: Clean-Voided Midstream Performed By: #### A DDONUAPLUS ####[place] [id number] [facility] [[email or web address]] Glucose Ql (U) Normal Normal Normal [facility] Comment on above: Order Comment: Name Collection Type:: Clean-Voided Midstream Performed By: #### A DDONUAPLUS ####[place] [id number] [facility] [[email or web address]] Hyaline Casts,Urine 0-8 Normal 0-8 [facility] Comment on above: Order Comment: Name Collection Type:: Clean-Voided Midstream Result Comment: PERF ORMED BY: [facility] [address] [place] [address] PATHOLOGIST COMPARATOR OPERATOR SAMANTHA PEREZ M.D. Performed By: #### A DDONUAPLUS ####[place] [id number] [facility] [[email or web address]] Ketones Ql (U) Negative Normal Negative [facility] Comment on above: Order Comment: Name Collection Type:: Clean-Voided Midstream Performed By: #### A DDONUAPLUS ####[place] [id number] [facility] [[email or web address]] Leukocyte esterase Test strip Ql (U) 2+ High Negative [facility] Comment on above: Order Comment: Name Collection Type:: Clean-Voided Midstream Performed By: #### A DDONUAPLUS ####[place] [id number] [facility] [[email or web address]] Nitrite,Urine Negative Normal Negative [facility] Comment on above: Order Comment: Name Collection Type:: Clean-Voided Midstream Performed By: #### A DDONUAPLUS ####[place] [id number] [facility] [[email or web address]] Occult Blood,Urine Negative Normal Negative [facility] Comment on above: Order Comment: Name Collection Type:: Clean-Voided Midstream Result Comment: PERF ORMED BY: [facility] [address] [place] [address] PATHOLOGIST COMPARATOR OPERATOR SAMANTHA PEREZ M.D. Performed By: #### A DDONUAPLUS ####[place] [id number] [facility] [[email or web address]] pH (U) 5.5 [pH] Normal 5.0-9.0 [facility] Comment on above: Order Comment: Name Collection Type:: Clean-Voided Midstream Performed By: #### A DDONUAPLUS ####[place] [id number] [facility] [[email or web address]] Protein,Urine Negative Normal Negative [facility] Comment on above: Order Comment: Name Collection Type:: Clean-Voided Midstream Performed By: #### A DDONUAPLUS ####[address] [address] [facility] [[email or web address]] RBC LM.HPF (Urine sed) [#/Area] 0 /[HPF] Normal 0-4 [facility] Comment on above: Order Comment: Name Collection Type:: Clean-Voided Midstream Performed By: #### A DDONUAPLUS ####[place] [id number] [facility] [[email or web address]] Specificy [place],Urine 1.012 Normal 1.001-1.03 0 [facility] Comment on above: Order Comment: Name Collection Type:: Clean-Voided Midstream Performed By: #### A DDONUAPLUS ####[address] [address] [facility] [[email or web address]] Squamous Epithelial Cell,Urine 0-1 Normal 0-2 [facility] Comment on above: Order Comment: Name Collection Type:: Clean-Voided Midstream Performed By: #### A DDONUAPLUS ####[address] [address] [facility] [[email or web address]] Urobilinogen,Urine Normal Normal Normal [facility] Comment on above: Order Comment: Name Collection Type:: Clean-Voided Midstream Performed By: #### A DDONUAPLUS ####[address] [address] [facility] [[email or web address]] WBC,Urine 3-4 Normal 0-4 [facility] Comment on above: Order Comment: Name Collection Type:: Clean-Voided Midstream Performed By: #### A DDONUAPLUS ####[address] [address] [facility] [[email or web address]] ECG 12 lead ECGon 10-10-2023 ECG 12 lead ECG [facility] [address] [place] [address] Electrocardiograph Report Signed Patient: Nadya Rodriguez MR#: [id number] : 1955 Acct:[id number] Age/Sex: 68 / F ADM Date: 10/10/23 Loc: PS Room: Type: [facility] Attending Dr: Luis Carlton II, MD Ordering Provider: Luis Carlton MD Date of Service: 10/10/2307/23/1324 ECG/ECG 12 lead ECG: PREOP Copies to: Test Reason : Blood Pressure : / mmHG Vent. Rate : 078 BPM Atrial Rate : 078 BPM P-R Int : 192 ms QRS Dur : 084 ms QT Int : 378 ms P-R-T Axes : 055 051 054 degrees QTc Int : 430 ms Normal sinus rhythm Normal ECG No previous ECGs available Confirmed by LORI NUÑEZ MD ([facility]) on 10/10/2023 5:39:11 PM Referred By: JULIAN Electronically Signed By:LORI NUÑEZ MD Transcribed By: MUS Signed By Lori Nuñez MD 0 10/10/23 1739 Normal [facility] Eosinophils Auto (Bld) [#/Vo l]Ordered By: Luis Carlton on 10-10-2023 Eosinophils (Bld) [#/Vol] 0.1 10*3/uL 0.0-0.45 [facility] Eosinophils/100 WBC Auto (Bl d)Ordered By: Luis Carlton on 10-10-2023 Eosinophils/100 WBC (Bld) 1.5 % . [facility] Erythrocyte distribution wid th Auto (RBC) [Ratio]Ordered By: Luis Carlton on 10-10-2023 Erythrocyte distribution width (RBC) [Ratio] 14.3 % 11.9-15.3 [facility] Fructosamineon 10-10-2023 Fructosamine 213 umol/L Normal 0-285 [facility] Comment on above: Result Comment: Publ ished reference interval for apparently healthy subjects between age 20 and 60 is 205 - 285 umol/L and in a poorly controlled diabetic population is 228 - 563 umol/L with a mean of 396 umol/L. Performed at: [facility] [id number] [place] Helper: Zia Rome PhD, Phone: [phone] PERFORMED BY: [facility] [address] [place] [id number] PATHOLOGIST COMPARATOR OPERATOR SAMANTHA PEREZ M.D. Performed By: #### B MP, SCAN CBC ####[facility] [address] [place] [id number] [facility] [[email or web address]]#### FRUC ####[facility] , Fructosamine [Moles/volume] in Serum or PlasmaOrdered By: Luis Carlton on 10-10-2023 Fructosamine [Moles/Vol] 213 umol/L 0-285 [facility] Comment on above: Published reference interval for apparently healthysubjects between age 20 and 60 is 205 - 285 umol/L and in apoorly controlled diabetic population is 228 - 563 umol/Lwith a mean of 396 umol/L.Performed at: [facility] [id number] Director: Zia Rome PhD, Phone: [phone] Glucose [Mass/volume] in Ser um or PlasmaOrdered By: Luis Carlton on 10-10-2023 Glucose [Mass/Vol] 73 mg/dL 70-100 [facility] Comment on above: ADA recommended refe rence rangeRandom Glucose Reference Range is dependent on time and content of last meal. Glucose of more than 200 mg/dL in a nonstressed, ambulatory subject supports the diagnosis of Diabetes Mellitus. Hematocrit Auto (Bld) [Volum e fraction]Ordered By: Luis Carlton on 10-10-2023 Hematocrit (Bld) [Volume fraction] 39.9 % 34.0-46.4 [facility] Hemoglobin [Mass/volume] in BloodOrdered By: Luis Carlton on 10-10-2023 Hemoglobin (Bld) [Mass/Vol] 13.3 g/dL 11.8-15.4 [facility] Ketones Auto test strip (U) [Mass/Vol]Ordered By: Luis Carlton on 10-10-2023 Ketones (U) [Mass/Vol] Negative Negative [facility] Laboratory - UrinalysisOrder ed By: Luis Carlton on 10-10-2023 Hyaline casts LM Ql (Urine sed) 0-8 [LPF] 0-8 [facility] Leukocytes [#/volume] correc stefani for nucleated erythrocytes in Blood by Automated counOrdered By: Luis Carlton on 10-10-2023 WBC corrected for nucl RBC Auto (Bld) [#/Vol] 6.1 10*3/uL 3.8-11.6 [facility] Lymphocytes Auto (Bld) [#/Vo l]Ordered By: Luis Carlton on 10-10-2023 Lymphocytes (Bld) [#/Vol] 2.0 10*3/uL 1.00-4.8 [facility] Lymphocytes/100 WBC Auto (Bl d)Ordered By: Luis Carlton on 10-10-2023 Lymphocytes/100 WBC (Bld) 32.5 % . [facility] MCH Auto (RBC) [Entitic mass ]Ordered By: Luis Carlton on 10-10-2023 MCH (RBC) [Entitic mass] 30.9 pg 24.7-34.3 [facility] MCHC Auto (RBC) [Mass/Vol]Or dered By: Luis Carlton on 10-10-2023 MCHC (RBC) [Mass/Vol] 33.3 g/dL 32.0-35.0 [facility] MCV Auto (RBC) [Entitic vol] Ordered By: Luis Carlton on 10-10-2023 MCV (RBC) [Entitic vol] 92.9 fL 80-100 [facility] Microcytes LM Ql (Bld)Ordere d By: Luis Carlton on 10-10-2023 Microcytes Ql (Bld) Slight [facility] Monocytes Auto (Bld) [#/Vol] Ordered By: Luis Carlton on 10-10-2023 Monocytes (Bld) [#/Vol] 0.4 10*3/uL 0.0-0.8 [facility] Monocytes/100 WBC Auto (Bld) Ordered By: Luis Carlton on 10-10-2023 Monocytes/100 WBC (Bld) 6.3 % . [facility] Neutrophils Auto (Bld) [#/Vo l]Ordered By: Luis Carlton on 10-10-2023 Neutrophils (Bld) [#/Vol] 3.6 10*3/uL 1.8-7.7 [facility] Neutrophils/100 WBC Auto (Bl d)Ordered By: Luis Carlton on 10-10-2023 Neutrophils/100 WBC (Bld) 59.1 % . [facility] Nitrite Test strip Ql (U)Ord ered By: Luis Carlton on 10-10-2023 Nitrite Ql (U) Negative Negative [facility] No Panel InformationOrdered By: Luis Carlton on 10-10-2023 Estimated GFR (CKD-EPI) > 60.0 mL/Min [facility] Pharmacy Creatinine Clearance (Chem N/A [facility] Nucleated erythrocytes [Pres ence] in Blood by Automated countOrdered By: Luis Carlton on 10-10-2023 Nucleated RBC Auto Ql (Bld) 0.1 /100{WBC} 0-0.5 [facility] PST Type and Screenon 2023 ABO and Rh group Nom (Bld) Blood group AB Rh(D) positive Normal [facility] Comment on above: Order Comment: Date of Surgery: 20231023 Result Comment: PERF ORMED BY: [facility] [address] [facility] [place] [address] PATHOLOGIST COMPARATOR OPERATOR SAMANTHA PEREZ M.D. Platelet adequacy [Presence] in Blood by Light microscopyOrdered By: Luis Carlton on 10-10-2023 Platelets LM Ql (Bld) Normal Normal [facility] Platelet mean volume Auto (B ld) [Entitic vol]Ordered By: Luis Carlton on 10-10-2023 Platelet mean volume (Bld) [Entitic vol] 10.3 fL 6.3-10.7 [facility] Platelet morphology finding [Identifier] in BloodOrdered By: Luis Carlton on 10-10-2023 Platelet morphology finding Nom (Bld) Normal Normal [facility] Platelets Auto (Bld) [#/Vol] Ordered By: Luis Carlton on 10-10-2023 Platelets (Bld) [#/Vol] 234 10*3/uL 150-450 [facility] Potassium [Moles/volume] in Serum or PlasmaOrdered By: Luis Carlton on 10-10-2023 Potassium [Moles/Vol] 4.2 mmol/L 3.5-5.1 [facility] Protein Auto test strip (U) [Mass/Vol]Ordered By: Luis Carlton on 10-10-2023 Protein (U) [Mass/Vol] Negative Negative [facility] RBC Auto (Bld) [#/Vol]Ordere d By: Luis Carlton on 10-10-2023 RBC (Bld) [#/Vol] 4.29 10*6/uL 3.60-5.00 [facility] RBC morphologyOrdered By: Guillermina Carlton on 10-10-2023 RBC morphology finding Nom (Bld) N/A [facility] Scan and CBCon 10-10-2023 Anisocytosis Ql (Bld) Slight Normal [facility] Comment on above: Performed By: #### B MP, SCAN CBC ####[place] [address] [place]#### FRUC ####[facility] , Basophils (Bld) [#/Vol] 0.0 10*3/uL Normal 0.0-0.2 [facility] Comment on above: Performed By: #### B MP, SCAN CBC ####[place] [id number] [place] [address] [place]#### FRUC ####[facility] , Basophils/100 WBC (Bld) 0.6 % Normal . [facility] Comment on above: Performed By: #### B MP, SCAN CBC ####[place] [address] [place] [address] [place]#### FRUC ####[facility] , Eosinophils (Bld) [#/Vol] 0.1 10*3/uL Normal 0.0-0.45 [facility] Comment on above: Performed By: #### B MP, SCAN CBC ####[place] [address] [place]#### FRUC ####[facility] , Eosinophils/100 WBC (Bld) 1.5 % Normal . [facility] Comment on above: Performed By: #### B MP, SCAN CBC ####[place] [address] [place]#### FRUC ####[facility] , Erythrocyte distribution width (RBC) [Ratio] 14.3 % Normal 11.9-15.3 [facility] Comment on above: Performed By: #### B MP, SCAN CBC ####[place] [address] [place]#### FRUC ####[facility] , Hematocrit (Bld) [Volume fraction] 39.9 % Normal 34.0-46.4 [facility] Comment on above: Performed By: #### B MP, SCAN CBC ####[place] [address] [place]#### FRUC ####[facility] , Hemoglobin (Bld) [Mass/Vol] 13.3 g/dL Normal 11.8-15.4 [facility] Comment on above: Performed By: #### B MP, SCAN CBC ####[place] [address] [place]#### FRUC ####[facility] , Lymphocytes (Bld) [#/Vol] 2.0 10*3/uL Normal 1.00-4.8 [facility] Comment on above: Performed By: #### B MP, SCAN CBC ####[place] [address] [place]#### FRUC ####[facility] , Lymphocytes/100 WBC (Bld) 32.5 % Normal . [facility] Comment on above: Performed By: #### B MP, SCAN CBC ####[place] [address] [place]#### FRUC ####[facility] , MCH (RBC) [Entitic mass] 30.9 pg Normal 24.7-34.3 [facility] Comment on above: Performed By: #### B MP, SCAN CBC ####[place] [address] [place]#### FRUC ####[facility] , MCV (RBC) [Entitic vol] 92.9 fL Normal 80-100 [facility] Comment on above: Performed By: #### B MP, SCAN CBC ####[place] [address] [place]#### FRUC ####[facility] , Mean Corpuscular HGB Conc 33.3 g/dL Normal 32.0-35.0 [facility] Comment on above: Performed By: #### B MP, SCAN CBC ####[place] [address] [place]#### FRUC ####[facility] , Microcytosis Slight Normal [facility] Comment on above: Performed By: #### B MP, SCAN CBC ####[place] [address] [place]#### FRUC ####[facility] , Monocytes (Bld) [#/Vol] 0.4 10*3/uL Normal 0.0-0.8 [facility] Comment on above: Performed By: #### B MP, SCAN CBC ####[place] [address] [place]#### FRUC ####[facility] , Monocytes/100 WBC (Bld) 6.3 % Normal . [facility] Comment on above: Performed By: #### B MP, SCAN CBC ####[place] [address] [place]#### FRUC ####[facility] , Neutrophils (Bld) [#/Vol] 3.6 10*3/uL Normal 1.8-7.7 [facility] Comment on above: Performed By: #### B MP, SCAN CBC ####[place] [address] [place]#### FRUC ####[facility] , Neutrophils/100 WBC (Bld) 59.1 % Normal . [facility] Comment on above: Performed By: #### B MP, SCAN CBC ####[place] [address] [place]#### FRUC ####[facility] , NRBC% 0.1 /100{WBC} Normal 0-0.5 [facility] Comment on above: Performed By: #### B MP, SCAN CBC ####[address]#### FRUC ####[facility] , Platelet Estimate Normal Normal Normal [facility] Comment on above: Performed By: #### B MP, SCAN CBC ####[address]#### FRUC ####[facility] , Platelet mean volume (Bld) [Entitic vol] 10.3 fL Normal 6.3-10.7 [facility] Comment on above: Performed By: #### B MP, SCAN CBC ####[place] [address] [place]#### FRUC ####[facility] , Platelet Morphology Normal Normal Normal [facility] Comment on above: Result Comment: PERF ORMED BY: [facility] [address] [place] [address] PATHOLOGIST COMPARATOR OPERATOR SAMANTHA PEREZ M.D. Performed By: #### B MP, SCAN CBC ####[place] [address] [place]#### FRUC ####[facility] , Platelets (Bld) [#/Vol] 234 10*3/uL Normal 150-450 [facility] Comment on above: Performed By: #### B MP, SCAN CBC ####[facility] [address] [place] [address] [place]#### FRUC ####[facility] , RBC (Bld) [#/Vol] 4.29 10*6/uL Normal 3.60-5.00 [facility] Comment on above: Performed By: #### B MP, SCAN CBC ####[facility] [address] [place] [address] [place]#### FRUC ####[facility] , WBC (Bld) [#/Vol] 6.1 10*3/uL Normal 3.8-11.6 [facility] Comment on above: Performed By: #### B MP, SCAN CBC ####[facility] [place] [address] [place]#### FRUC ####[facility] , Serum or plasma anion gap de terminationOrdered By: Luis Carlton on 10-10-2023 Anion gap [Moles/Vol] 13.2 mmol/L 6.0-15.0 [facility] Sodium [Moles/volume] in Ser um or PlasmaOrdered By: Luis Carlton on 10-10-2023 Sodium [Moles/Vol] 140 mmol/L 136-145 [facility] Specific gravity Auto test s trip (U) [Rel density]Ordered By: Luis Carlton on 10-10-2023 Specific gravity (U) [Rel density] 1.012 1.001-1.03 0 [facility] Squamous epithelial cells de tection in urine sediment by light microscopyOrdered By: Luis Carlton on 10-10-2023 Epithelial cells.squamous LM Ql (Urine sed) 0-1 [HPF] 0-2 [facility] Urea nitrogen [Mass/volume] in Serum or PlasmaOrdered By: Lius Carlton on 10-10-2023 Urea nitrogen [Mass/Vol] 14 mg/dL 7-25 [facility] Urine bacteria detection by automated methodOrdered By: Luis Carlton on 10-10-2023 Bacteria Auto Ql (U) None seen None Seen [facility] Urine clarity by refractomet ry automatedOrdered By: Luis Carlton on 10-10-2023 Clarity Refractometry automated (U) Clear Clear [facility] Urine glucose measurement by automated test strip (mass/volume)Ordered By: Luis Carlton on 10-10-2023 Glucose Auto test strip (U) [Mass/Vol] Normal mg/dL Normal [facility] Urine hemoglobin detection b y automated test stripOrdered By: Luis Carlton on 10-10-2023 Hemoglobin Auto test strip Ql (U) Negative Negative [facility] Urine leukocyte esterase det ection by automated test stripOrdered By: Luis Carlton on 10-10-2023 Leukocyte esterase Auto test strip Ql (U) 2+ Negative [facility] Urobilinogen Auto test strip (U) [Mass/Vol]Ordered By: Luis Carlton on 10-10-2023 Urobilinogen (U) [Mass/Vol] Normal mg/dL Normal [facility] WBC Auto (Bld) [#/Vol]Ordere d By: Luis Carlton on 10-10-2023 WBC (Bld) [#/Vol] 6.1 10*3/uL 3.8-11.6 [facility] pH Auto test strip (U)Ordere d By: Luis Carlton on 10-10-2023 pH (U) 5.5 [pH] 5.0-9.0 [facility] A1C with Estimated Average G luon 09-26-2023 Glucose [Mass/Vol] 105 mg/dL Normal [facility] Comment on above: Order Comment: Reaso n for Exam Obesity, morbid, BMI 50 or higher;Age-related osteoporosis w Result Comment: PERF ORMED BY: [facility] [address] [facility] [place] [address] PATHOLOGIST COMPARATOR OPERATOR SAMANTHA PEREZ M.D. Performed By: #### A LB, CUMRSA, A1C WTH eA, HGB, [id number] #### [facility] [address] [place] [address] #### NICOTINE #### [facility] , HbA1c (Bld) [Mass fraction] 5.3 % Normal 4.3-5.6 [facility] Comment on above: Order Comment: Reaso n for Exam Obesity, morbid, BMI 50 or higher;Age-related osteoporosis w Result Comment: Incr eased risk for diabetes: 5.7 - 6.4 diabetes: >6.4 glycemic control for adults with diabetes: <7.0 Performed By: #### A LB, CUMRSA, A1C WTH eA, HGB, [id number] #### [facility] [address] [place] [address] #### NICOTINE #### [facility] , Albumin Levelon 09-26-2023 Albumin [Mass/Vol] 4.5 g/dL Normal 3.5-5.7 [facility] Comment on above: Order Comment: Reaso n for Exam Obesity, morbid, BMI 50 or higher;Age-related osteoporosis w Performed By: #### A LB, CUMRSA, A1C WTH eA, HGB, [id number] #### [facility] [address] [place] [address] #### NICOTINE #### [facility] , Albumin [Mass/volume] in Ser um or Plasma by Bromocresol green (BCG) dye binding methoOrdered By: Luis Carlton on 09-26-2023 Albumin BCG dye [Mass/Vol] 4.5 g/dL 3.5-5.7 [facility] Cotinine [Mass/volume] in Se rum or PlasmaOrdered By: Luis Carlton on 09-26-2023 Cotinine [Mass/Vol] <1.0 ng/mL . [facility] Comment on above: This test was develo ped and its performance characteristicsdetermined by [facility]. It has not been cleared orapproved by the Food and Drug Administration.Cotinine levels greater than 20.0 are consistent with theuse of tobacco or tobacco cessation products.Performed at: [address] [id number] Director: Vania Mendoza MD, Phone: [phone] Glucose mean value [Mass/vol ume] in Blood Estimated from glycated hemoglobinOrdered By: Luis Carlton on 09-26-2023 Average glucose Estimated from glycated hemoglobin (Bld) [Mass/Vol] 105 mg/dL [facility] Hemoglobinon 09-26-2023 Hemoglobin (Bld) [Mass/Vol] 13.1 g/dL Normal 11.8-15.4 [facility] Comment on above: Order Comment: Reaso n for Exam Obesity, morbid, BMI 50 or higher;Age-related osteoporosis w Result Comment: PERF ORMED BY: [place] [address] PATHOLOGIST COMPARATOR OPERATOR SAMANTHA PEREZ M.D. Performed By: #### A LB, CUMRSA, A1C WTH eA, HGB, [id number] #### [address] #### NICOTINE #### [facility] , Hemoglobin A1c percentageOrd ered By: Luis Carlton on 09-26-2023 HbA1c (Bld) [Mass fraction] 5.3 % 4.3-5.6 [facility] Comment on above: Increased risk for d iabetes: 5.7 - 6.4diabetes: >6.4glycemic control for adults with diabetes: <7.0 Hemoglobin [Mass/volume] in BloodOrdered By: Luis Carlton on 09-26-2023 Hemoglobin (Bld) [Mass/Vol] 13.1 g/dL 11.8-15.4 [facility] MRSA Cultureon 09-26-2023 MRSA Culture Reason for Exam Obes ity, morbid, BMI 50 or higher;Age-related osteoporosis w Nasal Reason for Exam: Obesity, morbid, BMI 50 or higher;Age-related osteoporosis w : Nasal MRSA Culture Results No MRSA Isolated 2 Days PERFORMED BY: [place] [address] PATHOLOGIST COMPARATOR OPERATOR SAMANTHA PEREZ M.D. Normal [facility] Comment on above: Performed By: #### A LB, CUMRSA, A1C WT eA, HGB, [id number] #### [facility] [address] [place] [address] [place] #### NICOTINE #### [facility] , Nicotine [Mass/volume] in Se rum or PlasmaOrdered By: Luis Carlton on 09-26-2023 Nicotine [Mass/Vol] <1.0 ng/mL . [facility] Comment on above: This test was develo ped and its performance characteristicsdetermined by [facility]. It has not been cleared orapproved by the Food and Drug Administration.Nicotine levels greater than 2.0 are consistent with theuse of tobacco or tobacco cessation products. Nicotine/Cotinine Bloodon Cotinine, Blood <1.0 Normal . [facility] Comment on above: Order Comment: Reaso n for Exam Obesity, morbid, BMI 50 or higher;Age-related osteoporosis w Result Comment: This test was developed and its performance characteristics determined by [facility]. It has not been cleared or approved by the Food and Drug Administration. Cotinine levels greater than 20.0 are consistent with the use of tobacco or tobacco cessation products. Performed at: [address] [id number] [place] Helper: Vania Mendoza MD, Phone: [phone] PERFORMED BY: [address] [place] [address] PATHOLOGIST COMPARATOR OPERATOR SAMANTHA PEREZ M.D. Performed By: #### A OMARI, CUMRSA, A1C [facility] eA, HGB, [id number] #### [address] #### NICOTINE #### [facility] , Nicotine, Blood <1.0 Normal . [facility] Comment on above: Order Comment: Reaso n for Exam Obesity, morbid, BMI 50 or higher;Age-related osteoporosis w Result Comment: This test was developed and its performance characteristics determined by [facility]. It has not been cleared or approved by the Food and Drug Administration. Nicotine levels greater than 2.0 are consistent with the use of tobacco or tobacco cessation products. Performed By: #### A LB, CUMRSA, A1C WTH eA, HGB, [id number] #### [place] [address] [place] #### NICOTINE #### [facility] , Vitamin D 25 Hydroxy Totalon 09-26-2023 Vitamin D 25 Hydroxy Total 20.9 ng/mL Low 30-100 [facility] Comment on above: Order Comment: Reaso n for Exam Obesity, morbid, BMI 50 or higher;Age-related osteoporosis w Result Comment: RENATO MIN D STATUS 25(OH)VITAMIN D RANGE (ng/mL) Deficient <20 Insufficient 20 to <30 Sufficient 30 to 100 Reference: Brittnee Beltrán, Alana ATKINSON, et al. Evaluation,treatment, and prevention of vitamin D deficiency; an Endocrine Society clinical practice guideline. JCEM. 2010; 96(7):191-. PERFORMED BY: [place] [address] PATHOLOGIST COMPARATOR OPERATOR SAMANTHA PEREZ M.D. Performed By: #### A LB, CUMRSA, A1C WTH eA, HGB, [id number] #### [address] #### NICOTINE #### [facility] , Vitamin D+Metabolites [Mass/ volume] in Serum or PlasmaOrdered By: Luis Carlton on 09-26-2023 Vitamin D+Metabolites [Mass/Vol] 20.9 ng/mL 30-100 [facility] Comment on above: VITAMIN D STATUS 25( [place])VITAMIN D RANGE (ng/mL) Deficient <20 Insufficient 20 to <30Sufficient 30 to 100Reference: Brittnee Beltrán, Alana ATKINSON, et al. Evaluation,treatment, and prevention of vitamin D deficiency; an Endocrine Society clinical practice guideline. JCEM. 2010; 96(7):191-. Wound methicillin resistant Staphylococcus aureus (MRSA) cultureOrdered By: Luis Carlton on 09-26-2023 MRSA isol Org specific cx Ql (Unsp spec) [facility] XR shoulder LT min 2V*on XR shoulder LT min 2V* [facility] [address] [place] [address] XRay Report Signed Patient: Nadya Rodriguez MR#: [id number] : 1955 Acct:[id number] Age/Sex: 68 / F ADM Date: 07/13/23 Loc: [facility] Room: Type: [facility] Attending Dr: Luis Carlton II, MD Copies [...] Luis King M.D.07/13/2023 2:02 PM Dictation Location: [place] [address] Transcribed By: [facility] 07/13/23 140 Dictated By: Angel Luis King DO 07/13/231400 Signed By: 07/13/23 140 Normal [facility] XR shoulder LT min 2V* [facility] [employer] Other XR shoulder LT min 2V* [facility] [employer] Other XR shoulder LT min 2V* [address] [facility] [employer] Other XR shoulder LT min 2V* [place] [address] [employer] [facility] [employer] Other XR shoulder LT min 2V* XRay Report [employer] Other XR shoulder LT min 2V* Signed [employer] Other XR shoulder LT min 2V* Patient: Nadya Rodriguez MR#: [id number] [employer] Other XR shoulder LT min 2V* 1147 [employer] Other XR shoulder LT min 2V* : 1955 Acct:[id number] [employer] Other XR shoulder LT min 2V* Age/Sex: 68 / F ADM Date: 07/13/23 [employer] Other XR shoulder LT min 2V* Loc: [facility] Room: Type: REG CLI [employer] Other XR shoulder LT min 2V* Attending Dr: Luis Carlton II, MD [employer] Other XR shoulder LT min 2V* Copies to: Luis Carlton MD [employer] Other XR shoulder LT min 2V* Ordering Provider: Luis Carlton MD [employer] Other XR shoulder LT min 2V* Date of Service: 07/13/23 [employer] Other XR shoulder LT min 2V* XR/XR shoulder LT min 2V*: PAIN [employer] Other XR shoulder LT min 2V* 3 views LEFT shoulder plain film [employer] Other XR shoulder LT min 2V* HISTORY: Generalized LEFT shoulder pain for weeks [employer] Other XR shoulder LT min 2V* COMPARISON: None [employer] Other XR shoulder LT min 2V* ACUTE FINDINGS: None [employer] Other XR shoulder LT min 2V* DEGENERATIVE CHANGE: Spurring of acromioclavicular joint and glenohumeral joint. Adequate joint [employer] Other XR shoulder LT min 2V* space. [employer] Other XR shoulder LT min 2V* SOFT TISSUE FINDINGS: Unremarkable [employer] Other XR shoulder LT min 2V* JOINT EFFUSION: None [employer] Other XR shoulder LT min 2V* POSTOP CHANGES: None [employer] Other XR shoulder LT min 2V* BONY MINERALIZATION: Adequate [employer] Other XR shoulder LT min 2V* XR/XR shoulder LT min 2V* [employer] Other XR shoulder LT min 2V* IMPRESSION: Degenerative change. [employer] Other XR shoulder LT min 2V* Impression dictated by: Angel Luis King M.D.07/13/2023 2:02 PM [employer] Other XR shoulder LT min 2V* Dictation Location: [place] [address] [employer] Other XR shoulder LT min 2V* Transcribed By: [facility] 07/13/23 [facility] [employer] Other XR shoulder LT min 2V* Dictated By: Angel Luis King DO 07/13/23 [facility] [place] [employer] Other XR shoulder LT min 2V* Signed By: [employer] Other XR shoulder LT min 2V* 07/13/23 [facility] [employer] Other XR hip LT min 2V(w/wo pelvis )*on 05-12-2023 XR hip LT min 2V(w/wo pelvis)* [facility] [address] [place] [address] [place] [address] XRay Report Signed Patient: Nadya Rodriguez MR#: [id number] 47 : 1955 Acct:[id number] Age/Sex: 68 / F ADM Date: 05/12/23 Loc: SOX Room: Type: [facility] Attending Dr: Luis Carlotn II, MD Copies to: Luis Carlton MD Ordering Provider: Luis Carlton MD Date of Service: 05/12/23 XR/XR hip LT min 2V(w/wo pelvis)*: PAIN ([id number]) XR/XR knee LT 4V*: PAIN CLINICAL DATA: [...] Mariel Melchor M.D.05/12/2023 2:13 PM Dictation Location: [place] [address] Transcribed By: [facility] 05/12/23 1413 Dictated By: Mariel Melchor MD 05/12/23 1408 Signed By: 05/12/23 1413 Normal [facility] LIPID PROFILEon 10-27-2022 CHOL-HDL RATIO NORM SEE BELOW Normal [facility] Comment on above: Result Comment: 3.3 - 4.4 LOW RISK 4.4 - 7.1 AVERAGE RISK 7.1 - 11.0 MODERATE RISK >11.0 HIGH RISK Performed By: #### L IPID, LIVER #### [facility] [address] [place] [address] Dr. Favio Cueto Cholesterol [Mass/Vol] 168 mg/dL Normal <=200 [facility] Comment on above: Performed By: #### L IPID, LIVER #### [facility] [address] [place] [address] [address] Favio Cueto Cholesterol in HDL [Mass/Vol] 61 mg/dL Critically high 40-60 [facility] Comment on above: Performed By: #### L IPID, LIVER #### [facility] [address] [place] [address] [address] Favio Cueto Cholesterol in LDL [Mass/Vol] 91.4 mg/dL Normal [facility] Comment on above: Performed By: #### L IPID, LIVER #### [facility] [address] [place] [address] [address] Favio Cueto Cholesterol.total/Cho lesterol in HDL [Mass ratio] 2.8 {ratio} Normal [facility] Comment on above: Performed By: #### L IPID, LIVER #### [facility] [address] [place] [address] Dr. Favio Cueto HDL NORMAL > or = 60 mg/dl - LO W CARDIOVASCULAR RISK <40 mg/dl - HIGH CARDIOVASCULAR RISK Normal [facility] Comment on above: Performed By: #### L IPID, LIVER #### [facility] [address] [address] [address] Favio Cueto LDL CALC NORMAL SEE BELOW Normal [facility] Comment on above: Result Comment: <100 mg/dl OPTIMAL 100 - 129 mg/dl NEAR OR ABOVE OPTIMAL 130 - 159 mg/dl BORDERLINE HIGH 160 - 189 mg/dl HIGH >190 mg/dl VERY HIGH Performed By: #### L IPID, LIVER #### [facility] [address] [place] [address] [address] Favio Cueto Triglyceride [Mass/Vol] 78 mg/dL Normal <=150 [facility] Comment on above: Performed By: #### L IPID, LIVER #### [facility] [address] [place] [address] [address] Favio Cueto VLDL CALC 15.6 mg/dL Normal [facility] Comment on above: Performed By: #### L IPID, LIVER #### [facility] [address] [place] [address] [address] Favio Cueto LIVER PROFILEon 10-27-2022 Albumin [Mass/Vol] 4.3 g/dL Normal 3.4-5.0 [facility] Comment on above: Performed By: #### L IPID, LIVER #### [facility] [address] [place] [address] [address] Favio Cueto Albumin/Globulin [Mass ratio] 1.5 {ratio} Normal [facility] Comment on above: Performed By: #### L IPID, LIVER #### [facility] [address] [place] [address] Dr. Favio Cueto ALP [Catalytic activity/Vol] 55 U/L Normal 46-116 [facility] Comment on above: Performed By: #### L IPID, LIVER #### [facility] [address] [place] [address] Dr. Favio Cueto ALT [Catalytic activity/Vol] 23 U/L Normal 14-59 [facility] Comment on above: Performed By: #### L IPID, LIVER #### [facility] [address] [place] [address] Dr. Favio Cueto AST [Catalytic activity/Vol] 15 U/L Normal 15-37 [facility] Comment on above: Performed By: #### L IPID, LIVER #### [facility] [address] [place] [address] Dr. Favio Cueto BILI, CONJUGATED 0.2 mg/dL Normal 0.0-0.2 [facility] Comment on above: Performed By: #### L IPID, LIVER #### [facility] [address] [place] [address] Dr. Favio Cueto Bilirubin [Mass/Vol] 0.7 mg/dL Normal 0.2-1.0 [facility] Comment on above: Performed By: #### L IPID, LIVER #### [facility] [address] [place] [address] Dr. Favio Cueto Globulin (S) [Mass/Vol] 2.8 g/dL Normal [facility] Comment on above: Performed By: #### L IPID, LIVER #### [facility] [address] [place], [place] [address] Dr. Favio Cueto Protein [Mass/Vol] 7.1 g/dL Normal 6.4-8.2 [facility] Comment on above: Performed By: #### L IPID, LIVER #### [facility] [address] [place], [place] [address] Dr. Favio Cueto MG MAMM SCREEN 3D ARCHIE CADon 10-27-2022 MG MAMM SCREEN 3D ARCHIE CAD Patient: NADYA RODRIGUEZ Exam Date: 10/27/2022 : 1955 Gender:F Ordering : SHAIKH Rosa SANTORO . Admission #: [id number] Family : Order #: [id number] CLICK HERE TO VIEW EXAM RADIOLOGY REPORT PROCEDURE: MAMMOGRAM SCREENING 3D BILATERAL CAD COMPARISON: None. INDICATIONS: Screening mammography Calculator Name NCI Breast Cancer Risk Assessment Tool 5 Year Breast Cancer Risk 1.30% Lifetime Breast Cancer Risk 5.00% Personal Breast Cancer No Personal Ovarian Cancer No Treatments None Family Cancers None LOCATION: [facility] BREAST COMPOSITION: Heterogeneously dense,which may obscure small [...] Hardy MD on 11/23/2022 at 08:22 Normal [facility] CT LUNG CANCER SCREENINGon 0 04-05-2022 CT [...] by: HOLLIE HARDY Date: 2022-04-05 10:37 Normal [facility] Vital Signs Date Time Vital Sign Value Performing Clinician Keri watson 10-23-2023 16:00-0400 Diastolic blood pressure 68 mm[Hg] PHYSICIAN NO [facility] 10-23-2023 16:00-0400 Heart rate 68 /min PHYSICIAN NO [facility] 10-23-2023 16:00-0400 Respiratory rate 16 /min PHYSICIAN NO [facility] 10-23-2023 16:00-0400 SaO2% (BldA) [Mass fraction] 99 % PHYSICIAN NO [facility] 10-23-2023 16:00-0400 Systolic blood pressure 120 mm[Hg] PHYSICIAN NO [facility] 10-23-2023 12:33-0400 Body temperature 98.6 [degF] PHYSICIAN NO [facility] 10-23-2023 12:33-0400 Inhaled oxygen flow rate 10 L/min PHYSICIAN NO [facility] 10-23-2023 08:59-0400 Body height 160.02 cm PHYSICIAN NO [facility] 10-23-2023 08:59-0400 Body mass index (BMI) [Ratio] 23.4 kg/m2 PHYSICIAN NO [facility] 10-23-2023 08:59-0400 Body weight 60 kg PHYSICIAN NO [facility] 10-13-2023 08:41-0400 Body height 160.02 cm PHYSICIAN NO [facility] 10-13-2023 08:41-0400 Body mass index (BMI) [Ratio] 23.6 kg/m2 PHYSICIAN NO [facility] 10-13-2023 08:41-0400 Body weight 60.32 kg PHYSICIAN NO [facility] Encounters Encounter Date Encounter Type Care Provider Facility Start: 11-08-2023 End: 11-08-2023 ambulatory PHYSICIAN NO [facility] Work Phone: Start: 11-08-2023 End: 11-08-2023 Patient encounter procedure PHYSICIAN [facility] Work Phone: Start: 10-23-2023 End: 10-23-2023 ambulatory Luis M Porter II Facility:[facility] Start: 10-23-2023 End: 10-23-2023 Admission to same day surgery center PHYSICIAN NO [facility] [place] Start: 10-23-2023 End: 10-23-2023 ambulatory PHYSICIAN NO [facility] Work Phone: Start: 10-23-2023 Non-patient / Non-visit PHYSICIAN NO [facility] Work Phone: Start: 10-13-2023 ambulatory Luis M Porter II Fa cility:[facility] Start: 10-13-2023 Registered Recurring PHYSICIAN NO [facility] [place] Start: 10-13-2023 End: 10-13-2023 ambulatory PHYSICIAN NO [facility] Work Phone: Start: 10-13-2023 End: 10-13-2023 Patient encounter procedure PHYSICIAN NO [facility] Work Phone: Start: 10-12-2023 End: 10-12-2023 ambulatory SHAIKH MAUDE Not Available Start: 10-10-2023 End: 10-10-2023 ambulatory Luis M Porter II Facility:[facility] Start: 10-10-2023 End: 10-10-2023 Patient encounter procedure PHYSICIAN NO [facility] Work Phone: Start: 10-03-2023 End: 10-03-2023 ambulatory SHAIKH ANGELD Not Available Start: 09-26-2023 End: 09-26-2023 ambulatory Luis M Porter II Facility:[facility] Start: 09-26-2023 End: 09-26-2023 Patient encounter procedure PHYSICIAN NO [facility] [place] Work Phone: Start: 09-21-2023 End: 09-21-2023 ambulatory SHAIKH ANGELD Not Available Start: 08-23-2023 End: 08-23-2023 ambulatory Luis Porter II Other [employer] Other Start: 08-23-2023 Office outpatient visit 40 minutes Luis Porter II [facility] Start: 08-08-2023 End: 08-08-2023 ambulatory SHAIKH ANGELD Not Available Start: 07-13-2023 Office outpatient visit 25 minutes Luis Porter II [facility] Start: 07-13-2023 End: 07-13-2023 ambulatory Luis M Porter II [employer] Other Start: 07-10-2023 End: 07-10-2023 ambulatory Luis Porter II Other [employer] Other Start: 07-10-2023 Telephone encounter Luis Porter II [facility] Start: 05-12-2023 End: 05-12-2023 ambulatory PHYSICIAN NO FAMILY Facility:[facility] Start: 05-12-2023 End: 05-12-2023 ambulatory MD Luis Carlton II Work Phone: [facility] Work Phone: Start: 05-12-2023 End: 05-12-2023 Patient encounter procedure MD Luis Carlton II Work Phone: [facility] Start: 10-27-2022 End: 10-28-2022 ambulatory SHAIKH Trino SANTORO Facility:[facility] Start: 04-05-2022 End: 04-06-2022 [facility] Facility: Procedures Date Procedure Procedure Detail Performing Clinician Start: 10-23-2023 Plain X-ray of left hip PHYSICIAN NO FAMILY Start: 10-23-2023 Total replacement of left hip joint PHYSICIAN NO FAMILY Start: 10-23-2023 Plain X-ray of left hip PHYSICIAN NO FAMILY Start: 10-10-2023 Antibody screen Luis Carlton II Comment on above: Order Comment: Date of Surgery: 20231023 Result Comment: PERF ORMED BY: [facility] [address] [place] [address] PATHOLOGIST COMPARATOR OPERATOR SAMANTHA PEREZ M.D. Start: 09-26-2023 Methicillin resistan t Staphylococcus aureus culture PHYSICIAN NO FAMILY Start: 05-12-2023 Plain X-ray of left hip MD Luis Carlton II Work Phone: Start: 05-12-2023 Radiologic examinati on of knee MD Luis Carlton II Work Phone: Plan of Treatment Date Care Activity Detail Author Start: 10-23-2023 End: 10-23-2023 [facility] Immunizations Immunization Date Immunization Notes Care Provider Fa cility 03-07-2021 COVID-19 mRNA, Comirnaty (Pfizer) PHYSICIAN NO [facility] 02-14-2021 COVID-19 mRNA, Comirnaty (Pfizer) PHYSICIAN NO [facility] Payers Date Payer Category Payer Private Health Insurance [id number] 2023 Self-pay 2021 Medicare [id number] 1957 Medicare [id number] 1955 Unknown [id number] 2.16.84 [id number] 1955 Unknown [id number] 2.16.84 [id number] 1955 Unknown [id number] 2.16.84 [id number] 1955 Unknown [id number] 2.16.84 [id number] 1955 Unknown [id number] 2.16.84 [id number] 1955 Unknown [id number] 2.16.84 [id number] Unknown [id number] 2.16.8 [id number] Unknown [id number] 2.16.8 [id number] Unknown [id number] 2.16.8 [id number] Unknown [id number] 2.16.8 [id number] Unknown [id number] 2.16.8 [id number] Unknown [id number] 2.16.8 [id number] Social History Date Type Detail Facility Tobacco smoking status [facility] Unknown if ever smoked [facility] Work Phone: Start: 1955 Sex Assigned At Female [facility] Sex Assigned At Sex Assigned At [employer] Other Start: 10-10-2023 End: 10-23-2023 Tobacco smoking status [facility] Ex-smoker (finding) [facility] NEGATED: Highlighted row [facility] Medical Equipment Procedure Code Equipment Code Equipment Origin al Text Equipment Identifier Dates Arthroplasty, hip, total, anterior approach Acetabular shell [id number] FDA Start: 10-23-2023 Arthroplasty, hip, total, anterior approach Ceramic femoral head prosthesis [id number] FDA Start: 10-23-2023 Arthroplasty, hip, total, anterior approach Coated hip femur prosthesis, modular [id number] FDA Start: 10-23-2023 Arthroplasty, hip, total, anterior approach Non-constrained polyethylene acetabular liner [id number] FDA Start: 10-23-2023 Goals Date Patient Goal Desired Activity /State Evaluation note 08-23-2023 Note Date & Type [...] pathological fracture (ICD-10 - M81.0) Jul, Other halfway (current) drug therapy (ICD-10 - Z79.899) Jul, [...] or absent clearances could delay their surgery. [employer] Other Evaluation note 07-13-2023 Note Date & [...] both the hip and the knee being wybo-mj-thpi arthritis I still feel that the most [...] her back in 6 weeks for reevaluation. [employer] Other Evaluation note 07-10-2023 Note Date & Type Note Facility 07-10-2023 Evaluation note Encounter Date Diagnosis Assessment Notes Jun, Left hip pain (ICD-10 - M25.552) [employer] Other Evaluation note Note Date & Type Note Facility Evaluation note No assessment information availa [facility] Work Phone: Evaluation note Note Date & Type Note Facility Evaluation note Diagnosis Onset Date Primary osteoarthritis of left hip acute [facility] Work Phone: History general Narrative - Reported Note Date & Type Note Facility History general Narrative - Reported Type Medical History hypercholesterolemia Medical History emphysema-mild Surgical History C section x2 Surgical History tonsillectomy Surgical History RTHA Surgical History ear surgery [employer] Other Hospital Discharge instructions Note Date & Type Note Facility Hospital Discharge instructions Additional Instructions Joint Replacement Discharge Instructions Your safety during your recovery process is important to us. Please seek immediate emergency care if you have sudden chest pain or shortness of breath. Additionally, please call our office at [phone] should any of the following occur: wound bleeding or an increase in bleeding, increased swelling, redness around the incision, fever over 101 F, excessive vomiting, nosebleeds, or bloody stool. Discharge Medications (scheduled) indicated with an X: ___X____ Senokot-S 8.6-50mg tablet. Take 2 tablets by mouth daily for 30 days or as long as you are taking a narcotic pain medication (tramadol, oxycodone, or morphine). Begin the day of surgery. ____X Miralax 17g packet. Drink 1 packet mixed with 8 ounces of water daily for 7 days. Begin the morning after surgery. Begin your home anticoagulation medication, the morning after surgery. Take as prescribed like you were before surgery. ___x____ Ecotrin (coated aspirin) 81mg tablet by mouth twice daily for 35 days. Begin the morning after surgery. Protonix (pantoprazole) 20mg tablet by mouth daily for 35 days. Begin the morning after surgery. Xarelto (rivaroxaban) 10mg table by mouth daily for 35 days. Begin the morning after surgery. ____x__ Celebrex (celecoxib) 200mg tablet by mouth twice daily for 30 days. Take with food. Begin the morning after surgery. x__ Duricef (cefadroxil) 500mg tablet by mouth twice daily for 7 days. Take with food. Begin the morning after surgery. Bactrim-DS (sulfamethoxazole & trimethoprim) 800mg-160mg tablet by mouth twice daily for 7 days. Take with food. Begin the morning after surgery. Cleocin (clindamycin) 300mg tablet by mouth 3 times (every 8 hours) a day for 7 days. Take with food. Begin the morning after surgery. ___x____ Tylenol (acetaminophen) 500mg tablet. Take 2 tablets 3 times (every 8 hours) a day for 30 days. Begin the night of surgery if necessary. Prednisone 10mg tablet. Take 1 tablet daily for 10 days. Begin the morning after surgery. *If you have a patch behind your ear remove it the morning after surgery, discard, and thoroughly wash your hands. Discharge Medications (as needed) indicated with an X: ___x____ Zofran (Ondansetron) 4mg tablet by mouth 3 times (every 8 hours) a day as needed for nausea. Begin the night of surgery if necessary. ____x___ Tramadol (Ultram) 50mg tablet. Take 1 tablet by mouth every 6 hours as needed for pain. Do not take at the same time as oxycodone, MS Contin (morphine extended release), or Dilaudid (hydromorphone). Take with food. Begin the night of surgery. Take around the clock for 24 hours after surgery and then utilize if necessary. ____x___ Oxycodone 5mg tablet. Take 1 tablet by mouth every 4 hours as needed for pain. If pain unrelenting 30 minutes after taking 1 tablet, then take another 1 tablet. Do not take at the same time as MS Contin (morphine extended release), Dilaudid (hydromorphone), or Tramadol (Ultram). Take with food. Begin the night of surgery. Take around the clock for 24 hours after surgery and then utilize if necessary. MS Contin (morphine extended release) 15mg tablet. Take 1 tablet by mouth every 12 hours as needed for BREAKTHROUGH pain only. If pain unrelenting 30 minutes after you have taken the second oxycodone 5mg tablet, then take 1 MS Contin tablet. Do not take at the same time as oxycodone or Tramadol (Ultram); this is a time-released medication and can only be taken once every 12 hours. Resume oxycodone at next scheduled time (4 hours after the MS Contin tablet). Begin the night of surgery if necessary. Dilaudid (hydromorphone) 2mg tablet. Take 1 tablet by mouth every 8 hours as needed for BREAKTHROUGH pain only. If pain unrelenting 30 minutes after oxycodone, then take 1 Dilaudid tablet. Do not take at the same time as oxycodone or Tramadol (Ultram). Resume oxycodone at next scheduled time (4 hours after the Dilaudid tablet). Begin the night of surgery if necessary. Discharge Instructions: BE SURE YOU HAVE READ THE BOOKLET YOU RECEIVED IN THE OFFICE. Home Health: Home health is a valuable partner in the joint replacement process; they will be your first step to your road of recovery. A therapist will see you the day after your surgery; they will be at your home before noon. They will see you the first three days after surgery and continue working with you until I see you in the office for your 2-week post-op appointment. Follow their instructions. Exercises are to be done several times a day, including the days the therapist does not come to your house! Wound Care: Your surgical incision may be covered with a few different dressings. Your home health physical therapist will remove the gauze dressing the first day after surgery, but they will leave one of the following in place until you see me in the office. Zipline x This is a no contact dressing that will stay in place until you are seen in the office for your 2-week post-op appointment. Do not place any ointments, creams, or lotions on your wound. Avoid getting outside on hot days; excessive sweating can increase the risk of wound infection. If there is drainage, place a gauze dressing over the wound, secure with paper tape, and call your therapist. A small amount of drainage is expected. When you do bathe, allow soapy water to run over the dressing site, but do not scrub the incision or the dressing. Pat the dressing site dry with a towel after you shower. DO NOT take a bath, enter a pool, john/pond,or ocean until we discuss this at your post-op appointments. Aquacel x This is a silver-impregnated dressing with antibiotic properties that will stay in place until you are seen in the office for your 2-week post-op appointment. Do not place any ointments, creams, or lotions around your wound or on the dressing. Avoid getting outside on hot days; excessive sweating can increase the risk of wound infection. If there is drainage, place a gauze dressing over the wound, secure with paper tape, and call your therapist. A small amount of drainage is expected. When you do bathe, allow soapy water to run over the dressing site, but do not scrub the incision or the dressing. Pat the dressing site dry with a towel after you shower. DO NOT take a bath, enter a pool, john pond, or ocean until we discuss this at your post-op appointments. Prevena This is a negative pressure wound therapy device with a collection container for any drainage. If this becomes completely full, call your therapist to discuss changing the collection container. This device also has a 14-day battery. Your home health physical therapist will remove the dressing 14 days after your surgery; it will be removed prior to your initial follow up appointment. Do not place any ointments, creams, or lotions around your wound or on the dressing. Avoid getting outside on hot days; excessive sweating can increase the risk of wound infection. When you do bathe, allow soapy water to run over the dressing site, but do not scrub the device or the surrounding skin. DO NOT get the device wet! Pat the dressing site dry with a towel after you shower. DO NOT take a bath, enter a pool, john/pond, or ocean until we discuss this at your post-op appointments. What to expect: SWELLING: Ice frequently, a minimum of 4 times a day for 20 minutes at a time for the first 2-3 weeks after surgery, especially after doing your exercises. While icing, elevate your foot above the level of your heart with several pillows under your ankle. DO NOT put pillows under your knee. (KNEE REPLACEMENT ONLY) Avoid prolonged periods of sitting over the first 7 to 10 days after surgery. We recommend that you not sit for more than 45 to 60 minutes at a time. You should get up and move around or lie down and elevate your leg. BRUISING: You will have bruising to some degree; possibly the thigh, calf, ankle, foot, and in some cases the genitalia. Do not be alarmed. The bruising will eventually go away on its own as the body reabsorbs the blood. BLISTERS: Some patients may develop blisters around the knee/hip and/or the incision. Although they can be alarming in appearance, they pose no significant risk to your joint replacement. Leave the blisters alone and allow them to heal on their own. NUMBNESS: Usually normal around the incision. For knee replacements, the outside of the knee may be involved as well. The area of numbness may shrink over time or it could last forever. For hip replacements, you may notice numbness on the outside of the thigh extending down the outside of the knee. The area of numbness may shrink over time or it could last forever. STEFANI hose (stockinette): Wear them for 4 weeks on the operative side and 2 weeks on the nonoperative side. Try to wear these as 24/ as possible to help decrease swelling. Weight Bearing, Walkers, and Canes: Do not remove your knee immobilizer. Do not walk without this until your therapist has removed it either on the first day after surgery or the second day after surgery. Do not attempt to walk without your walker and your care technician until the therapist checks you the following day after surgery and gives you further instruction. Typically, you will start out on a walker, then progress to a cane, and eventually walk without any device. Some of our patients do this within 2 weeks of surgery, while others can take 6 weeks. Pain Medications: You may experience significant pain. Our goal is to make your pain manageable (not absent, since this is usually not realistic) and to allow you to progress with your therapy for your hip or knee. Take your pain medication scheduled for the first 24 hours, then take it as needed. Always take your pain medication with food to decrease nausea and vomiting. Be sure to take stool softeners and/or laxatives as directed. You may take bopk-lrq-okhecbm Benadryl if itching occurs without a rash or hives. Icing and elevation will help relieve pain as well, do not underestimate the power of ice and elevation. We do recommend that you stop taking narcotic pain medications by 4-6 weeks after surgery and if necessary, continue to use anti-inflammatory medications such as Mobic (meloxicam), Celebrex (celecoxib), or an qriu-cpk-lbavjvj medication (Aleve, Motrin, Ibuprofen, etc). Driving an automobile: You must be off all narcotic pain medications. If your right leg is involved, that is your braking leg. Your physical therapist needs to help you determine that you can actively and firmly hit the brake and sustain it as this could be a life or situation for you or someone else. You will not be cleared to drive by me or anyone else. It is up to you to know when you feel safe to drive. We do recommend utilizing an empty parking lot to practice and ensure you are able to slam on the brakes if necessary during an emergency. Low Grade Fever (less than 101 F): Low-grade fevers can be treated, but make sure you do not exceed the daily limit of Tylenol. The daily limit on Tylenol (acetaminophen) is 3000 mg in a 24-hour period. If you have procedures done after your joint replacement: Dental procedures (including routine cleaning), prostate surgery, colonoscopy, and other invasive procedures could increase your risk for a total joint infection. During a postoperative visit, be sure to discuss the use of prophylactic antibiotic therapy prior to and sometimes after these invasive procedures. The decision to utilize antibiotics before and/or after these invasive procedures is a shared decision process between you and myself. Constipation: If you develop constipation in spite of taking stool softeners and/or laxatives, follow the protocol below: Day 2 of constipation if no results, use a Dulcolax suppository Day 3 of constipation if no results, use a fleet s enema. If no results by the afternoon, notify our office. Bladder Habits: If you have difficulty urinating or are unable to urinate within 12 hours after arriving home following your surgery, please notify our office immediately. Expectations for Pain Relief after Joint Replacement: Patients predictably improve for up to a year after a hip or knee replacement. It is normal for you to still have some pain in your hip or knee for as much as 3 to 9 months after surgery. The pain relief will come, but you should not expect great relief of pain in less than this time. High demand activities (such as going up and down stairs) frequently take 3 to 9 months before patients feel comfortable doing them. It is permissible to go up and down stairs whenever you can safely navigate them, but it will take much longer to do them normally and with great confidence. Questions or Problems: If you have any questions, problems, or confusion about your recovery after your hip or knee replacement, please feel free to call our office at [phone]. You are a priority of ours and we will not be upset with you if you call. We would much rather you call to confirm aspects of your recovery process as opposed to possibly hindering your recovery with inappropriate care. We are committed to providing you with the best care possible. Luis Carlton II, MD Updated 08/21/23 [facility] Work Phone: Summary Purpose Family History Relationship Condition Age at Onset Recorded Date/T logan father Hyperlipidemia Unknown Chronic obstructive pulmonary disease Unk nown Hypertension Unknown Abdominal aortic aneurysm (AAA) Unknown Not Specified Congestive heart failure Unknown Atrial fibrillation Unknown Hyperlipidemia Unknown brother Hyperlipidemia Unknown Advance Directives Advance Directive Response Recorded Date/ Time Advance Directives No May 14, 2023 11:22am Chief Complaint and Reason for Visit Chief Complaint E66.01 M81.0 Z79.899 Hip pain H&P LTHA Reason for Visit Primary osteoarthrit is of left hip Chief Complaint E66.01 M81.0 Z79.899 Hip pain H&P LTHA Preop L COLTEN Reason for Visit Primary osteoarthrit is of left hip Chief Complaint E66.01 M81.0 Z79.899 Hip pain H&P LTHA Preop L COLTEN Hip pain Hip pain Reason for Visit Primary osteoarthrit is of left hip Chief Complaint E66.01 M81.0 Z79.899 Hip pain H&P LTHA Preop L COLTEN Hip pain Hip pain 2 WK POST OP LTHA Reason for Visit Primary osteoarthrit is of left hip Additional Source Comments INFORMATION SOURCE (unrecogn ized section and content) DATE CREATED AUTHOR 11/24/2022 [facility] DATE CREATED AUTHOR AUTHOR'S ORGANIZ ATION 10/13/2023 [facility] EPIC DATE CREATED AUTHOR AUTHOR'S ORGANIZ ATION 11/03/2023 [facility] Teams (unrecognized sec tion and content) Team Status: Inactive Member Role Status Dates Luis Carlton II, MD Attending Provider Active Team Status: Active Member Role Status Dates Shaikh Maude MD Primary Care Provider Active Team Status: Inactive Member Role Status Dates PHYSICIAN NO FAMILY Primary Care Provider Active Start: September 26, 2023 End: September 26, 2023 Luis Carlton II, MD Attending Provider Active Start: September 26, 2023 End: September 26, 2023 Team Status: Inactive Member Role Status Dates Luis Carlton II, MD Attending Provider Active Start: October 10, 2023 End: October 10, 2023 Shaikh Maude MD Primary Care Provider Active Start: October 10, 2023 End: October 10, 2023 Team Status: Active Member Role Status Dates Shaikh Maude MD Primary Care Provider Active Start: October 13, 2023 Luis Carlton II, MD Attending Provider Active Start: October 13, 2023 Team Status: Inactive Member Role Status Dates Luis Carlton II, MD Attending Provider Active Start: October 13, 2023 End: October 13, 2023 Shaikh Maude MD Primary Care Provider Active Start: October 13, 2023 End: October 13, 2023 Team Status: Inactive Member Role Status Dates Shaikh Maude MD Primary Care Provider Active Start: October 13, 2023 End: October 13, 2023 Luis Carlton II, MD Attending Provider Active Start: October 13, 2023 End: October 13, 2023 Team Status: Active Member Role Status Dates Luis Carlton II, MD Attending Provider Active Start: October 13, 2023 Shaikh Maude MD Primary Care Provider Active Start: October 13, 2023 Team Status: Active Member Role Status Dates Luis Carlton II, MD Attending Provi ulysses, Other Provider Active Start: October 23, 2023 Shaikh Maude MD Primary Care Provider Active Start: October 23, 2023 Team Status: Inactive Member Role Status Dates Luis Carlton II, MD Attending Provider Active Start: October 23, 2023 End: October 23, 2023 Shaikh Maude MD Primary Care Provider Active Start: October 23, 2023 End: October 23, 2023 Team Status: Inactive Member Role Status Dates Luis Carlton II, MD Attending Provider Active Start: November 08, 2023 End: November 08, 2023 Shaikh Maude MD Primary Care Provider Active Start: November 08, 2023 End: November 08, 2023 Goals (unrecognized section and content) Goals may be documented in a n alternate sectionNo InformationNo InformationNo InformationGoals may be documented in an alternate sectionGoals may be documented in an alternate section REASON FOR VISIT (unrecogniz ed section and [...] BE BASED ON THE PRIMARY CLINICAL RECORDS. [employer] [facility]. provides no warranty or guarantee of the accuracy or completeness of information in this document.
== END 2023-11-29 09:55 | disposition home or self-care (01) ==
LOC: MAMMO 09:54
PROVIDERS: PCP Internal Medicine; Visit Provider Internal Medicine
DX: Z12.31 Encounter for screening mammogram for malignant neoplasm of breast (principal)
CPT/HCPCS: 77063; 77067

== ENCOUNTER 2023-12-14 20:01 | Outpatient (REF) | payer MEDICARE, SELFPAY ==
--- OUTSIDE RECORDS SUMMARY | 2023-12-14 20:07 | XMS_ITS | CCD ---
Author Organization [facility] Care Team Providers Care Advertising Writer Name Role Phone FAWWAD, OLSEN H Admitting Unavailable FAWWASid, OLSEN H Attending Unavailable MAUDE, H Primary Care Unavailable DR HOLLIE HARDY V Consulting Unavailable FAWWASid, OLSEN H Consulting Unavailable FADELFINO, OLSEN H Admitting Unavailable FADELFINO, H Attending Unavailable MAUDE, H Consulting Unavailable MD Luis Carlton II Attending Provider [phone] Luis Carlton II Unavailable SHAIKH SANTORO Attending Unavailable SHAIKH SANTORO Attending Unavailable MAUDE, Attending Unavailable SHAIKH SANTORO Attending Unavailable NO FAMILY, PHYSICIAN Primary Care Provider Unava ilable MD Luis Carlton II Attending Provider MD Stefan Santoro Primary Care Provider Shaikh Santoro Primary Care Unavailable Luis Carlton II Attending UnavailLuis Talavera II Admitting Unavailabl e FawShaikh reid Primary Care Unavailable Luis Carlton II Attending Unavailabl Luis Alvarado II Admitting Unavailabl e NO FAMILY, PHYSICIAN Primary Care Unavailable Luis Carlton II Admitting Unavailabl Luis Alvarado II Attending UnavailLusi Talavera II Admitting Unavailabl e NO FAMILY, PHYSICIAN Primary Care Unavailable Luis Carlton II Attending Unavailabl e NO FAMILY, PHYSICIAN Primary Care Unavailable Luis Carlton II Attending UnavailLuis Talavera II Admitting Unavailabl e FawShaikh reid Primary Care Unavailable Luis Carlton II Attending Luis Cintron II Admitting Shaikh Kemp Primary Care Unavailable Luis Carlton II Attending Luis Cintron II Admitting Fabiano velázquez Allergies Allergy Classification Reported Allergen(s) Allergy Type Date of Onset Reaction(s) Facility (1 source) Penicillins Drug allergy (disorder) 10-10-2023 [facility] Repository Medications Current Medications Medication Drug Class(es) Dates Sig (Normalized) Sig (Original) atorvastatin 20 mg oral tablet (3 sources) HMG-CoA Reductase Inhibitor Atorvastatin Calcium 20 MG Oral for 90 Days Active calcium carbonate 1500 mg / cholecalciferol 0.01 mg oral capsule (9 sources) Vitamin D Start: 10-10-2023 take 1 capsule by mouth once daily Calcium Carbonate-Vitamin D3 Active 1 CAP PO Daily October 10, 2023 12:00am Start: 05-12-2023 take 1 tablet by vi th every twelve hours Calcium-Vitamin D 600-3.125 MG-MCG 1 tablet Orally Twice a day for 30 day(s) Apr, Active ergocalciferol 1.25 mg oral capsule (6 sources) Provitamin D2 Compound Start: 09-28-2023 take [...] Apr, Active naproxen 500 mg oral tablet (9 sources) Nonsteroidal Anti-inflammatory Drug Start: 10-10-2023 take [...] Active rosuvastatin calcium 20 mg oral tablet (6 sources) HMG-CoA Reductase Inhibitor Start: 10-10-2023 take 20 mg by mouth once daily in the morning Rosuvastatin Active 20 MG PO Every morning October 10, 2023 12:00am Completed/Discontinued Medications Medication Drug Class(es) Dates Sig (Normalized) Sig (Original) acetaminophen 500 mg oral tablet (6 sources) Start: 10-13-2023 End: 12-06-2023 take 1000 mg by mouth every eight hours Acetaminophen Discontinued 1000 MG PO Q8H 180 30 October 13, 2023 12:00am December 06, 2023 11:18am DO NOT RECONCILE UNTIL DOS:10/23/2023 MED TO BED amoxicillin 875 mg / clavulanate 125 mg oral tablet (6 sources) Penicillin-class Antibacterial Start: 10-13-2023 End: 11-08-2023 Amoxicillin-Pot Clavulanate Discontinued TAB PO October 13, 2023 12:00am November 08, 2023 8:48am aspirin 81 mg delayed release oral tablet (6 sources) Platelet Aggregation Inhibitor, Nonsteroidal Anti-inflammatory Drug Start: 10-13-2023 End: 12-06-2023 take 81 mg by mouth twice daily Aspirin Discontinued 81 MG PO Twice daily 70 35 October 13, 2023 12:00am December 06, 2023 11:18am DO NOT RECONCILE UNTIL DOS:10/23/2023 MED TO BED cefadroxil 500 mg oral capsule (6 sources) Cephalosporin Antibacterial Start: 10-13-2023 End: 11-08-2023 take 500 mg by mouth every twelve hours Cefadroxil Discontinued 500 MG PO Q12H 14 7 October 13, 2023 12:00am November 08, 2023 8:48am DO NOT RECONCILE UNTIL DOS:10/23/2023 MED TO BED celecoxib 200 mg oral capsule (6 sources) Nonsteroidal Anti-inflammatory Drug Start: 10-13-2023 End: 12-06-2023 take 200 mg by mouth twice daily Celecoxib Discontinued 200 MG PO Twice daily 60 October 13, 2023 12:00am December 06, 2023 11:18am DO NOT RECONCILE UNTIL DOS:10/23/2023 MED TO BED docusate sodium 50 mg / sennosides, mcc 8.6 mg oral tablet (6 sources) Start: 10-13-2023 End: 11-08-2023 take 2 tablets by mouth once daily Sennosides-Docusat e Sodium (Senokot-S) 8.6-50 mg tablet Discontinued 2 TAB PO daily 60 October 13, 2023 12:00am November 08, 2023 8:48am DO NOT RECONCILE UNTIL DOS:10/23/2023 MED TO BED ondansetron 4 mg oral tablet (6 sources) Serotonin-3 Receptor Antagonist Start: 10-13-2023 End: 11-08-2023 take 4 mg by mouth every eight hours Ondansetron Hcl Discontinued 4 MG PO Q8H October 13, 2023 12:00am November 08, 2023 8:48am DO NOT RECONCILE UNTIL DOS:10/23/2023 MED TO BED oxyCODONE hydrochloride 5 mg oral tablet (6 sources) Opioid Agonist Start: 10-13-2023 End: 11-08-2023 take 5 mg by mouth every four hours Oxycodone Discontinued 5 MG PO Q4H 42 October 13, 2023 November 08, 2023 8:48am DO NOT RECONCILE UNTIL DOS:10/23/2023 MED TO BED polyethylene glycol 3350 97871 mg powder for oral solution (6 sources) Osmotic Laxative Start: 10-13-2023 End: 11-08-2023 Polyethylene Glycol 3350 (Miralax) 17 gram/dose powder Discontinued 17 GM PO daily 7 October 13, 2023 12:00am November 08, 2023 8:48am 1 packed mixed with 8 ounces of fluid. 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; Translations: [Other detention (current) drug therapy] Onset: 09-26-2023 Episodic Other connective tissue disease (2 sources) Hip joint prosthesis present; Translations: [Presence of left artificial hip joint] 11-08-2023 Chronic Other connective tissue disease (5 sources) Presence of left artificial hip joint; Translations: [Hip joint replacement] Onset: 12-06-2023 11-08-2023 Chronic Other connective tissue disease (2 sources) Impingement [...] Name Value Interpretation Reference Range Facility XR hip LT min 2V(w/wo pelvis )*on 12-06-2023 XR hip LT min 2V(w/wo pelvis)* [facility] [address] [place] [address] XRay Report Signed Patient: Nadya Kuhn MR#: [id number] 1147 : 1955 Acct:[id number] Age/Sex: 68 / F ADM Date: 12/06/23 Loc: [facility] [place] Room: Type: [facility] Attending Dr: Luis Carlton II, MD Copies to: Luis Carlton MD Ordering Provider: Luis Carlton MD Date of Service: 12/06/23 XR/XR hip LT min 2V(w/wo pelvis)*: Z96.642 - Presence of left artificial hip joint 2 views left hip with single view pelvis plain film COMPARISON: 10/23/2023 HISTORY: Status post left total hip arthroplasty ACUTE FINDINGS: None DEGENERATIVE CHANGE: Unremarkable SOFT TISSUE FINDINGS: Unremarkable JOINT EFFUSION: None POSTOP CHANGES: Stable 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 no complication BONY MINERALIZATION: Adequate XR/XR hip LT min 2V(w/wo pelvis)* IMPRESSION: Uncomplicated left hip arthroplasty Impression dictated by: Angel Luis King M.D.12/06/2023 2:13 PM Dictation Location: [place] [address] Transcribed By: [facility] 12/06/23 1413 Dictated By: Angel Luis King DO 12/06/23 1413 Signed By: 12/06/23 1413 Normal [facility] ABO/Rh Retypeon 10-23-2023 ABO/RH Recheck Result Positive Normal [facility] Comment on above: Result Comment: PERF ORMED BY: [facility] [address] [place] [address] PATHOLOGIST MIRROR SILVERER SAMANTHA PEREZ M.D. Amphetamine Screen Ql (U)Ord ered By: Jose Martin Nieves on 10-23-2023 Amphetamines Ql (U) Negative Negative [facility] Barbiturates [Presence] in U rine by Screen methodOrdered By: Jose Martin Nieves on 10-23-2023 Barbiturates Screen Ql (U) Negative Negative [facility] Benzodiazepines Screen Ql (U )Ordered By: Jose Martin Nieves on 10-23-2023 Benzodiazepines Ql (U) Negative Negative [facility] Benzoylecgonine [Presence] i n Urine by Screen methodOrdered By: Jose Martin Nieves on 10-23-2023 Benzoylecgonine Screen Ql (U) Negative Negative [facility] Cannabinoids [Presence] in U rine by Screen methodOrdered By: Jose Martin Nieves on 10-23-2023 Cannabinoids Screen Ql (U) Negative Negative [facility] Comment on above: These are unconfirme d results and should not be used for legal purposes. Drug Cut-Off Concentration: AMPH 1000 ng/mL SONIDO 200 ng/mL MICHELLE 200 ng/mL COCM 300 ng/mL OP 300 ng/mL PCP 25 ng/mL THC 20 ng/mL Drug Screen,Urineon 10-23-19 Amphetamine Screen,Urine Negative Normal Negative [facility] Comment on above: Performed By: #### U RDS ####[facility] [id number] Barbiturate Screen,Urine Negative Normal Negative [facility] Comment on above: Performed By: #### U RDS ####[address] Benzodiazepines Screen,Urine Negative Normal Negative [facility] Comment on above: Performed By: #### U RDS ####[address] Cannabinoid Screen,Urine Negative Normal Negative [facility] Comment on above: Result Comment: Thes e are unconfirmed results and should not be used for legal purposes. Drug Cut-Off Concentration: AMPH 1000 ng/mL SONIDO 200 ng/mL MICHELLE 200 ng/mL COCM 300 ng/mL OP 300 ng/mL PCP 25 ng/mL THC 20 ng/mL PERFORMED BY: [facility] [address] [place] [address] PATHOLOGIST MIRROR SILVERER SAMANTHA PEREZ M.D. Performed By: #### U RDS ####[address] Cocaine Screen,Urine Negative Normal Negative [facility] Comment on above: Performed By: #### U RDS ####[address] Opiate Screen,Urine Negative Normal Negative [facility] Comment on above: Performed By: #### U RDS ####[address] Phencyclidine Screen,Urine Negative Normal Negative [facility] Comment on above: Performed By: #### U RDS ####[place] [id number] [facility] Romeo 10-23-2023 L Specimen: [id number] Received: 10/23/23 Status: NAHEED Req Num: [id number] Spec Type: Surgical Subm Dr: Luis Carlton MD Tissues: A Femoral Head - Other than Fracture (LT HIP) Procedures: HE/2, Gross/Micro L3, Decalcification Age/ Patient Sex Location Account Attending Physician Nadya Kuhn 68/F [place] [id number] Luis Carlton MD SPEC NUM: [id number] RECD: 10/23/23 STATUS: NAHEED [facility] NUM: [id number] RAMÓN: 10/23/23 DR: Luis Carlton MD ENTERED: 10/23/[address] [facility] [address]: SPEC TYPE: Surgical DEPT: S ORDERED: [...] is taken. Gross examination only. CPT Codes 29304 Specimen: [id number] Received: 10/23/23 Status: NAHEED Garcia Num: [id number] Spec Type: Surgical Subm Dr: Luis Carlton MD Tissues: A Femoral Head - Other than Fracture (LT HIP) Procedures: HE/2, Gross/Micro L3, Decalcification Patient: Nadya Kuhn [id number] (Continued) Specimen: [id number] Received: 10/23/23 (Continued) Signed (signature on file) Edgardo Doll MD 10/24/23 123 Specimen: [id number] Received: 10/23/23 Status: NAHEED Garcia Num: [id number] Spec Type: Surgical Subm Dr: Luis Carlton MD Tissues: A Femoral Head - Other than Fracture (LT HIP) Procedures: HE/2, Gross/Micro L3, Decalcification Patient: Nadya Kuhn Alex [id number] (Continued) Specimen: [id number] Received: 10/23/23 (Continued) Stephan Photo Specimen: Received: 10/23/23 Status: NAHEED Garcia Num: [id number] Spec Type: Surgical Subm Dr: Luis Carlton MD Tissues: A Femoral Head - Other than Fracture (LT HIP) Procedures: HE/2, Gross/Micro L3, Decalcification Patient: Nadya Kuhn [id number] (Continued) Signed (signature on file) Edgardo Doll MD 10/24/23 1231 Normal [facility] Opiates [Presence] in Urine by Screen methodOrdered By: Jose Martin Nieves on 10-23-2023 Opiates Screen Ql (U) Negative Negative [facility] Phencyclidine Screen Ql (U)O rdered By: Jose Martin Nieves on 10-23-2023 Phencyclidine Ql (U) Negative Negative [facility] XR hip LT 1Von 10-23-2023 XR hip LT [address]V [facility] [place] [address] XRay Report Signed Patient: Nadya Kuhn MR#: [id number] 1147 : 1955 Acct:[id number] Age/Sex: 68 / F ADM Date: 10/23/23 Loc: [place] Room: Type: [facility] Attending Dr: Luis Carlton II, MD Copies [...] Mariel Melchor M.D.10/23/2023 3:37 PM Dictation Location: [facility]- Transcribed By: [facility] 10/23/231536 Dictated By: Mariel Melchor MD 10/23/231533 Signed By: 10/23/23 1537 Normal [facility] XR low pelvis w/LT x-table h ipon 10-23-2023 XR low pelvis w/LT x-table hip [facility] [address] [place] [address] [place] [address] XRay Report Signed Patient: Nadya Kuhn MR#: [id number] 1147 : 1955 Acct:[id number] Age/Sex: 68 / F ADM Date: 10/23/23 Loc: [place] Room: Type: [facility] Attending Dr: Luis Carlton II, MD Copies [...] complication. Impression dictated by: Nilo Hightower Jr., D.OAnna Marie10/23/2023 1:26 PM Dictation Location: [place] [address] Transcribed By: [facility] 10/23/23 1326 Dictated By: Nilo Hightower Jr, DO 10/23/23 1325 Signed By: 10/23/23 1326 Normal [facility] Anisocytosis LM Ql (Bld)Orde red By: Luis Carlton on 10-10-2023 Anisocytosis Ql (Bld) Slight [facility] Automated erythrocytes count in urine sediment (number/area)Ordered By: Luis Carlton on 10-10-2023 RBC Auto (Urine sed) [#/Area] 0-1 [HPF] 0-4 [facility] Automated leukocytes count i n urine sediment (number/area)Ordered By: Luis Carlton on 10-10-2023 WBC Auto (Urine sed) [#/Area] 3-4 [HPF] 0-4 [facility] Basic Metabolic Panelon 09-28 Anion gap [Moles/Vol] 13.2 mmol/L Normal 6.0-15.0 [facility] Comment on above: Performed By: #### B MP, SCAN CBC ####[place] [address] [place] [address] [place]#### FRUC ####[facility] , Calcium [Mass/Vol] 10.0 mg/dL Normal 8.6-10.3 [facility] Comment on above: Result Comment: PERF ORMED BY: [facility] [place] [address] PATHOLOGIST MIRROR SILVERER SAMANTHA PEREZ M.D. Performed By: #### B MP, SCAN CBC ####[place] [address] [place]#### FRUC ####[facility] , Chloride [Moles/Vol] 105 mmol/L Normal 98-107 [facility] Comment on above: Performed By: #### B MP, SCAN CBC ####[place] [address] [place]#### FRUC ####[facility] , CO2 [Moles/Vol] 26.0 mmol/L Normal 21.0-31.0 [facility] Comment on above: Performed By: #### B MP, SCAN CBC ####[place] [address] [place]#### FRUC ####[facility] , Creatinine [Mass/Vol] 0.65 mg/dL Normal 0.60-1.20 [facility] Comment on above: Performed By: #### B MP, SCAN CBC ####[place] [address] [place]#### FRUC ####[facility] , GFR/1.73 sq M.predicted MDRD (S/P/Bld) [Vol rate/Area] mL/min/{1.73_m2} Normal [facility] Comment on above: Performed By: #### B MP, SCAN CBC ####[place] [address] [place]#### FRUC ####[facility] , Glucose [Mass/Vol] 73 mg/dL Normal 70-100 [facility] Comment on above: Result Comment: [place] Glucose Reference Range is dependent on time and content of last meal. Glucose of more than 200 mg/dL in a nonstressed, ambulatory subject supports the diagnosis of Diabetes Mellitus. ADA recommended reference range Performed By: #### B MP, SCAN CBC ####[facility] [place] [address] [place]#### FRUC ####[facility] , Potassium [Moles/Vol] 4.2 mmol/L Normal 3.5-5.1 [facility] Comment on above: Performed By: #### B MP, SCAN CBC ####[place] [address] [place] [address] [place]#### FRUC ####[facility] , Sodium [Moles/Vol] 140 mmol/L Normal 136-145 [facility] Comment on above: Performed By: #### B MP, SCAN CBC ####[place] [address] [place] [address] [place]#### FRUC ####[facility] , Urea nitrogen [Mass/Vol] 14 mg/dL Normal 7-25 [facility] Comment on above: Performed By: #### B MP, SCAN CBC ####[place] [address] [place] [address] [place]#### FRUC ####[facility] , Basophils Auto (Bld) [#/Vol] Ordered By: Luis Carlton on 10-10-2023 Basophils (Bld) [#/Vol] 0.0 10*3/uL 0.0-0.2 [facility] Basophils/100 WBC Auto (Bld) Ordered By: Luis Carlton on 10-10-2023 Basophils/100 WBC (Bld) 0.6 % . [facility] Bilirubin Test strip Ql (U)O rdered By: Luis Carlton on 10-10-2023 Bilirubin Ql (U) Negative Negative [facility] Calcium [Mass/volume] in Ser um or PlasmaOrdered By: Luis Carlton on 10-10-2023 Calcium [Mass/Vol] 10.0 mg/dL 8.6-10.3 [facility] Carbon dioxide, total [Moles /volume] in Serum or PlasmaOrdered By: Luis Carlton on 10-10-2023 CO2 [Moles/Vol] 26.0 mmol/L 21.0-31.0 [facility] Chloride [Moles/volume] in S leann or PlasmaOrdered By: Luis Carlton on 10-10-2023 Chloride [Moles/Vol] 105 mmol/L 98-107 [facility] Color Auto (U)Ordered By: Guillermina Carlton on 10-10-2023 Color (U) Yellow Yellow [facility] Creatinine [Mass/volume] in Serum or PlasmaOrdered By: Luis Carlton on 10-10-2023 Creatinine [Mass/Vol] 0.65 mg/dL 0.60-1.20 [facility] Dipstick and Microscopicon 0 10-10-2023 Appearance (U) Clear Normal Clear [facility] Comment on above: Order Comment: Name Collection Type:: Clean-Voided Midstream Performed By: #### A DDONUAPLUS #### [facility] [address] [place] [address] [place] Bacteria,Urine None Seen Normal None Seen [facility] Comment on above: Order Comment: Name Collection Type:: Clean-Voided Midstream Performed By: #### A DDONUAPLUS #### [facility] [address] [place] [id number] [place] Bilirubin,Urine Negative Normal Negative [facility] Comment on above: Order Comment: Name Collection Type:: Clean-Voided Midstream Performed By: #### A DDONUAPLUS #### [facility] [address] [place] [id number] [place] Color (U) Yellow Normal Yellow [facility] Comment on above: Order Comment: Name Collection Type:: Clean-Voided Midstream Performed By: #### A DDONUAPLUS #### [facility] [address] [place] [address] [place] Glucose Ql (U) Normal Normal Normal [facility] Comment on above: Order Comment: Name Collection Type:: Clean-Voided Midstream Performed By: #### A DDONUAPLUS #### [facility] [address] [place] [address] [place] Hyaline Casts,Urine 0-8 Normal 0-8 [facility] Comment on above: Order Comment: Name Collection Type:: Clean-Voided Midstream Result Comment: PERF ORMED BY: [place] [address] PATHOLOGIST MIRROR SILVERER SAMANTHA PEREZ M.D. Performed By: #### A DDONUAPLUS #### [place] [id number] [place] Ketones Ql (U) Negative Normal Negative [facility] Comment on above: Order Comment: Name Collection Type:: Clean-Voided Midstream Performed By: #### A DDONUAPLUS #### [place] [id number] [place] Leukocyte esterase Test strip Ql (U) 2+ High Negative [facility] Comment on above: Order Comment: Name Collection Type:: Clean-Voided Midstream Performed By: #### A DDONUAPLUS #### [address] [address] [place] Nitrite,Urine Negative Normal Negative [facility] Comment on above: Order Comment: Name Collection Type:: Clean-Voided Midstream Performed By: #### A DDONUAPLUS #### [address] [address] [place] Occult Blood,Urine Negative Normal Negative [facility] Comment on above: Order Comment: Name Collection Type:: Clean-Voided Midstream Result Comment: PERF ORMED BY: [place] [address] PATHOLOGIST MIRROR SILVERER SAMANTHA PEREZ M.D. Performed By: #### A DDONUAPLUS #### [place] [id number] [place] pH (U) 5.5 [pH] Normal 5.0-9.0 [facility] Comment on above: Order Comment: Name Collection Type:: Clean-Voided Midstream Performed By: #### A DDONUAPLUS #### [address] Protein,Urine Negative Normal Negative [facility] Comment on above: Order Comment: Name Collection Type:: Clean-Voided Midstream Performed By: #### A DDONUAPLUS #### [address] RBC LM.HPF (Urine sed) [#/Area] 0 /[HPF] Normal 0-4 [facility] Comment on above: Order Comment: Name Collection Type:: Clean-Voided Midstream Performed By: #### A DDONUAPLUS #### [address] Specificy [place],Urine 1.012 Normal 1.001-1.03 0 [facility] Comment on above: Order Comment: Name Collection Type:: Clean-Voided Midstream Performed By: #### A DDONUAPLUS #### [address] Squamous Epithelial Cell,Urine 0-1 Normal 0-2 [facility] Comment on above: Order Comment: Name Collection Type:: Clean-Voided Midstream Performed By: #### A DDONUAPLUS #### [address] Urobilinogen,Urine Normal Normal Normal [facility] Comment on above: Order Comment: Name Collection Type:: Clean-Voided Midstream Performed By: #### A DDONUAPLUS #### [place] [id number] [place] WBC,Urine 3-4 Normal 0-4 [facility] Comment on above: Order Comment: Name Collection Type:: Clean-Voided Midstream Performed By: #### A DDONUAPLUS #### [address] ECG 12 lead ECGon 10-10-2023 ECG 12 lead ECG [facility] [place] [address] Electrocardiograph Report Signed Patient: Nadya Kuhn MR#: [id number] 1147 : 1955 Acct:[id number] Age/Sex: 68 / F ADM Date: 10/10/23 Loc: Room: Type: [facility] Attending Dr: Luis Carlton II, MD [...] ECGs available Confirmed by LORI NUÑEZ MD ([id number]) on 10/10/2023 5:39:11 PM Referred By: JULIAN Electronically Signed By:LORI NUÑEZ MD Transcribed By: MUS Signed By Lori Nuñez MD 0 10/10/23 1739 Normal [facility] Eosinophils Auto (Bld) [#/Vo l]Ordered By: Luis Carlton on 10-10-2023 Eosinophils (Bld) [#/Vol] 0.1 10*3/uL 0.0-0.45 [facility] Eosinophils/100 WBC Auto (Bl d)Ordered By: Luis Carlton on 10-10-2023 Eosinophils/100 WBC (Bld) 1.5 % . [facility] Erythrocyte distribution wid th Auto (RBC) [Ratio]Ordered By: Luis Carlton on 10-10-2023 Erythrocyte distribution width (RBC) [Ratio] 14.3 % 11.9-15.3 [facility] Fructosamineon 10-10-2023 Fructosamine 213 umol/L Normal 0-285 [facility] Comment on above: Result Comment: Publ ished reference interval for apparently healthy subjects between age 20 and 60 is 205 - 285 umol/L and in a poorly controlled diabetic population is 228 - 563 umol/L with a mean of 396 umol/L. Performed at: - [facility] [address] [place], [place] [id number] Engineer And Geologist: Zia Rome PhD, Phone: [phone] PERFORMED BY: [facility] [address] [place] [address] PATHOLOGIST MIRROR SILVERER SAMANTHA PEREZ M.D. Performed By: #### B MP, SCAN CBC ####[facility] [id number]#### FRUC ####[facility] , Fructosamine [Moles/volume] in Serum or PlasmaOrdered By: Luis Carlton on 10-10-2023 Fructosamine [Moles/Vol] 213 umol/L 0-285 [facility] Comment on above: Published reference interval for apparently healthysubjects between age 20 and 60 is 205 - 285 umol/L and in apoorly controlled diabetic population is 228 - 563 umol/Lwith a mean of 396 umol/L.Performed at: - [facility] [id number] Director: Zia Rome PhD, Phone: [phone] Glucose [Mass/volume] in Ser um or PlasmaOrdered By: Luis Carlton on 10-10-2023 Glucose [Mass/Vol] 73 mg/dL 70-100 [facility] Comment on above: ADA recommended refe rence rangeRandom Glucose Reference Range is dependent on time and content of last meal. Glucose of more than 200 mg/dL in a nonstressed, ambulatory subject supports the diagnosis of Diabetes Mellitus. Hematocrit Auto (Bld) [Volum e fraction]Ordered By: Luis Carlton on 10-10-2023 Hematocrit (Bld) [Volume fraction] 39.9 % 34.0-46.4 [facility] Hemoglobin [Mass/volume] in BloodOrdered By: Luis Carlton on 10-10-2023 Hemoglobin (Bld) [Mass/Vol] 13.3 g/dL 11.8-15.4 [facility] Ketones Auto test strip (U) [Mass/Vol]Ordered By: Luis Carlton on 10-10-2023 Ketones (U) [Mass/Vol] Negative Negative [facility] - UrinalysisOrder ed By: Luis Carlton on 10-10-2023 Hyaline casts LM Ql (Urine sed) 0-8 [LPF] 0-8 [facility] Leukocytes [#/volume] correc stefani for nucleated erythrocytes in Blood by Automated counOrdered By: Luis Carlton on 10-10-2023 WBC corrected for nucl RBC Auto (Bld) [#/Vol] 6.1 10*3/uL 3.8-11.6 [facility] Lymphocytes Auto (Bld) [#/Vo l]Ordered By: Luis Carlton on 10-10-2023 Lymphocytes (Bld) [#/Vol] 2.0 10*3/uL 1.00-4.8 [facility] Lymphocytes/100 WBC Auto (Bl d)Ordered By: Luis Carlton on 10-10-2023 Lymphocytes/100 WBC (Bld) 32.5 % . [facility] MCH Auto (RBC) [Entitic mass ]Ordered By: Luis Carlton on 10-10-2023 MCH (RBC) [Entitic mass] 30.9 pg 24.7-34.3 [facility] MCHC Auto (RBC) [Mass/Vol]Or dered By: Luis Carlton on 10-10-2023 MCHC (RBC) [Mass/Vol] 33.3 g/dL 32.0-35.0 [facility] MCV Auto (RBC) [Entitic vol] Ordered By: Luis Carlton on 10-10-2023 MCV (RBC) [Entitic vol] 92.9 fL 80-100 [facility] Microcytes LM Ql (Bld)Ordere d By: Luis Carlton on 10-10-2023 Microcytes Ql (Bld) Slight [facility] Monocytes Auto (Bld) [#/Vol] Ordered By: Luis Carlton on 10-10-2023 Monocytes (Bld) [#/Vol] 0.4 10*3/uL 0.0-0.8 [facility] Monocytes/100 WBC Auto (Bld) Ordered By: Luis Carlton on 10-10-2023 Monocytes/100 WBC (Bld) 6.3 % . [facility] Neutrophils Auto (Bld) [#/Vo l]Ordered By: Luis Carlton on 10-10-2023 Neutrophils (Bld) [#/Vol] 3.6 10*3/uL 1.8-7.7 [facility] Neutrophils/100 WBC Auto (Bl d)Ordered By: Luis Carlton on 10-10-2023 Neutrophils/100 WBC (Bld) 59.1 % . [facility] Nitrite Test strip Ql (U)Ord ered By: Luis Carlton on 10-10-2023 Nitrite Ql (U) Negative Negative [facility] No Panel InformationOrdered By: Luis Carlton on 10-10-2023 Estimated GFR (CKD-EPI) > 60.0 mL/Min [facility] Creatinine Clearance (Chem N/A [facility] Nucleated erythrocytes [Pres ence] in Blood by Automated countOrdered By: Luis Carlton on 10-10-2023 Nucleated RBC Auto Ql (Bld) 0.1 /100{WBC} 0-0.5 [facility] PST Type and Screenon 2023 ABO and Rh group Nom (Bld) Blood group AB Rh(D) positive Normal [facility] Comment on above: Order Comment: Date of Surgery: 20231023 Result Comment: PERF ORMED BY: [facility] [address] [place] [address] PATHOLOGIST MIRROR SILVERER SMAANTHA PEREZ M.D. Platelet adequacy [Presence] in Blood by Light microscopyOrdered By: Luis Carlton on 10-10-2023 Platelets LM Ql (Bld) Normal Normal [facility] Platelet mean volume Auto (B ld) [Entitic vol]Ordered By: Luis Carlton on 10-10-2023 Platelet mean volume (Bld) [Entitic vol] 10.3 fL 6.3-10.7 [facility] Platelet morphology finding [Identifier] in BloodOrdered By: Luis Carlton on 10-10-2023 Platelet morphology finding Nom (Bld) Normal Normal [facility] Platelets Auto (Bld) [#/Vol] Ordered By: Luis Carlton on 10-10-2023 Platelets (Bld) [#/Vol] 234 10*3/uL 150-450 [facility] Potassium [Moles/volume] in Serum or PlasmaOrdered By: Luis Carlton on 10-10-2023 Potassium [Moles/Vol] 4.2 mmol/L 3.5-5.1 [facility] Protein Auto test strip (U) [Mass/Vol]Ordered By: Luis Carlton on 10-10-2023 Protein (U) [Mass/Vol] Negative Negative [facility] RBC Auto (Bld) [#/Vol]Ordere d By: Luis Carlton on 10-10-2023 RBC (Bld) [#/Vol] 4.29 10*6/uL 3.60-5.00 [facility] RBC morphologyOrdered By: Guillermina Carlton on 10-10-2023 RBC morphology finding Nom (Bld) N/A [facility] Scan and CBCon 10-10-2023 Anisocytosis Ql (Bld) Slight Normal [facility] Comment on above: Performed By: #### B MP, SCAN CBC ####[facility]#### FRUC ####[facility] , Basophils (Bld) [#/Vol] 0.0 10*3/uL Normal 0.0-0.2 [facility] Comment on above: Performed By: #### B MP, SCAN CBC ####[facility] [address] [place] [address] [place]#### FRUC ####[facility] , Basophils/100 WBC (Bld) 0.6 % Normal . [facility] Comment on above: Performed By: #### B MP, SCAN CBC ####[facility] [place] [address] [place]#### FRUC ####[facility] , Eosinophils (Bld) [#/Vol] 0.1 10*3/uL Normal 0.0-0.45 [facility] Comment on above: Performed By: #### B MP, SCAN CBC ####[address]#### FRUC ####[facility] , Eosinophils/100 WBC (Bld) 1.5 % Normal . [facility] Comment on above: Performed By: #### B MP, SCAN CBC ####[place] [address] [place]#### FRUC ####[facility] , Erythrocyte distribution width (RBC) [Ratio] 14.3 % Normal 11.9-15.3 [facility] Comment on above: Performed By: #### B MP, SCAN CBC ####[address]#### FRUC ####[facility] , Hematocrit (Bld) [Volume fraction] 39.9 % Normal 34.0-46.4 [facility] Comment on above: Performed By: #### B MP, SCAN CBC ####[address]#### FRUC ####[facility] , Hemoglobin (Bld) [Mass/Vol] 13.3 g/dL Normal 11.8-15.4 [facility] Comment on above: Performed By: #### B MP, SCAN CBC ####[place] [address] [place]#### FRUC ####[facility] , Lymphocytes (Bld) [#/Vol] 2.0 10*3/uL Normal 1.00-4.8 [facility] Comment on above: Performed By: #### B MP, SCAN CBC ####[place] [address] [place]#### FRUC ####[facility] , Lymphocytes/100 WBC (Bld) 32.5 % Normal . [facility] Comment on above: Performed By: #### B MP, SCAN CBC ####[place] [address] [place]#### FRUC ####[facility] , MCH (RBC) [Entitic mass] 30.9 pg Normal 24.7-34.3 [facility] Comment on above: Performed By: #### B MP, SCAN CBC ####[address]#### FRUC ####[facility] , MCV (RBC) [Entitic vol] 92.9 fL Normal 80-100 [facility] Comment on above: Performed By: #### B MP, SCAN CBC ####[address]#### FRUC ####[facility] , Mean Corpuscular HGB Conc 33.3 g/dL Normal 32.0-35.0 [facility] Comment on above: Performed By: #### B MP, SCAN CBC ####[address]#### FRUC ####[facility] , Microcytosis Slight Normal [facility] Comment on above: Performed By: #### B MP, SCAN CBC ####[address]#### FRUC ####[facility] , Monocytes (Bld) [#/Vol] 0.4 10*3/uL Normal 0.0-0.8 [facility] Comment on above: Performed By: #### B MP, SCAN CBC ####[address]#### FRUC ####[facility] , Monocytes/100 WBC (Bld) 6.3 % Normal . [facility] Comment on above: Performed By: #### B MP, SCAN CBC ####[place] [address] [place] [id number] [place]#### FRUC ####[facility] , Neutrophils (Bld) [#/Vol] 3.6 10*3/uL Normal 1.8-7.7 [facility] Comment on above: Performed By: #### B MP, SCAN CBC ####[place] [address] [place]#### FRUC ####[facility] , Neutrophils/100 WBC (Bld) 59.1 % Normal . [facility] Comment on above: Performed By: #### B MP, SCAN CBC ####[address]#### FRUC ####[facility] , NRBC% 0.1 /100{WBC} Normal 0-0.5 [facility] Comment on above: Performed By: #### B MP, SCAN CBC ####[address]#### FRUC ####[facility] , Platelet Estimate Normal Normal Normal [facility] Comment on above: Performed By: #### B MP, SCAN CBC ####[place] [address] [place]#### FRUC ####[facility] , Platelet mean volume (Bld) [Entitic vol] 10.3 fL Normal 6.3-10.7 [facility] Comment on above: Performed By: #### B MP, SCAN CBC ####[place] [address] [place]#### FRUC ####[facility] , Platelet Morphology Normal Normal Normal The [facility] Comment on above: Result Comment: PERF ORMED BY: [facility] [address] [address] PATHOLOGIST MIRROR SILVERER SAMANTHA PEREZ M.D. Performed By: #### B MP, SCAN CBC ####[place] [address] [place] [address] [place]#### FRUC ####[facility] , Platelets (Bld) [#/Vol] 234 10*3/uL Normal 150-450 [facility] Comment on above: Performed By: #### B MP, SCAN CBC ####[place] [address] [place] [address] [place]#### FRUC ####[facility] , RBC (Bld) [#/Vol] 4.29 10*6/uL Normal 3.60-5.00 The [facility] Comment on above: Performed By: #### B MP, SCAN CBC ####[place] [address] [place]#### FRUC ####[facility] , WBC (Bld) [#/Vol] 6.1 10*3/uL Normal 3.8-11.6 [facility] Comment on above: Performed By: #### B MP, SCAN CBC ####[place] [address] [address]#### FRUC ####[facility] , Serum or plasma anion gap de terminationOrdered By: Luis Carlton on 10-10-2023 Anion gap [Moles/Vol] 13.2 mmol/L 6.0-15.0 [facility] Sodium [Moles/volume] in Ser um or PlasmaOrdered By: Luis Carlton on 10-10-2023 Sodium [Moles/Vol] 140 mmol/L 136-145 [facility] Specific gravity Auto test s trip (U) [Rel density]Ordered By: Luis Carlton on 10-10-2023 Specific gravity (U) [Rel density] 1.012 1.001-1.03 0 [facility] Squamous epithelial cells de tection in urine sediment by light microscopyOrdered By: Luis Carlton on 10-10-2023 Epithelial cells.squamous LM Ql (Urine sed) 0-1 [HPF] 0-2 [facility] Urea nitrogen [Mass/volume] in Serum or PlasmaOrdered By: Luis Carlton on 10-10-2023 Urea nitrogen [Mass/Vol] 14 mg/dL 7-25 [facility] Urine bacteria detection by automated methodOrdered By: Luis Carlton on 10-10-2023 Bacteria Auto Ql (U) None seen None Seen [facility] Urine clarity by refractomet ry automatedOrdered By: Luis Carlton on 10-10-2023 Clarity Refractometry automated (U) Clear Clear [facility] Urine glucose measurement by automated test strip (mass/volume)Ordered By: Luis Carlton on 10-10-2023 Glucose Auto test strip (U) [Mass/Vol] Normal mg/dL Normal [facility] Urine hemoglobin detection b y automated test stripOrdered By: Luis Carlton on 10-10-2023 Hemoglobin Auto test strip Ql (U) Negative Negative [facility] Urine leukocyte esterase det ection by automated test stripOrdered By: Luis Carlton on 10-10-2023 Leukocyte esterase Auto test strip Ql (U) 2+ Negative [facility] Urobilinogen Auto test strip (U) [Mass/Vol]Ordered By: Luis Carlton on 10-10-2023 Urobilinogen (U) [Mass/Vol] Normal mg/dL Normal [facility] WBC Auto (Bld) [#/Vol]Ordere d By: Luis Carlton on 10-10-2023 WBC (Bld) [#/Vol] 6.1 10*3/uL 3.8-11.6 [facility] pH Auto test strip (U)Ordere d By: Luis Carlton on 10-10-2023 pH (U) 5.5 [pH] 5.0-9.0 [facility] A1C with Estimated Average G luon 09-26-2023 Glucose [Mass/Vol] 105 mg/dL Normal [facility] Comment on above: Order Comment: Reaso n for Exam Obesity, morbid, BMI 50 or higher;Age-related osteoporosis w Result Comment: PERF ORMED BY: [place] [address] PATHOLOGIST MIRROR SILVERER SAMANTHA PEREZ M.D. Performed By: #### H GB, ALB, [id number], CUMRSA, A1C WTH eA #### [place] [id number] [place] #### NICOTINE #### [facility] , HbA1c (Bld) [Mass fraction] 5.3 % Normal 4.3-5.6 [facility] Comment on above: Order Comment: Reaso n for Exam Obesity, morbid, BMI 50 or higher;Age-related osteoporosis w Result Comment: Incr eased risk for diabetes: 5.7 - 6.4 diabetes: >6.4 glycemic control for adults with diabetes: <7.0 Performed By: #### H GB, ALB, [id number], CUMRSA, A1C WTH eA #### [place] [id number] [place] #### NICOTINE #### [facility] , Albumin Levelon 09-26-2023 Albumin [Mass/Vol] 4.5 g/dL Normal 3.5-5.7 [facility] Comment on above: Order Comment: Reaso n for Exam Obesity, morbid, BMI 50 or higher;Age-related osteoporosis w Performed By: #### H GB, ALB, [id number], CUMRSA, A1C WTH eA #### [place] [id number] [place] #### NICOTINE #### [facility] , Albumin [Mass/volume] in Ser um or Plasma by Bromocresol green (BCG) dye binding methoOrdered By: Luis Carlton on 09-26-2023 Albumin BCG dye [Mass/Vol] 4.5 g/dL 3.5-5.7 [facility] Cotinine [Mass/volume] in Se rum or PlasmaOrdered By: Luis Carlton on 09-26-2023 Cotinine [Mass/Vol] <1.0 ng/mL . [facility] Comment on above: This test was develo ped and its performance characteristicsdetermined by [employer]. It has not been cleared orapproved by the Food and Drug Administration.Cotinine levels greater than 20.0 are consistent with theuse of tobacco or tobacco cessation products.Performed at: [address] [id number] Director: Vania Mendoza MD, Phone: [phone] Glucose mean value [Mass/vol ume] in Blood Estimated from glycated hemoglobinOrdered By: Luis Carlton on 09-26-2023 Average glucose Estimated from glycated hemoglobin (Bld) [Mass/Vol] 105 mg/dL [facility] Hemoglobinon 09-26-2023 Hemoglobin (Bld) [Mass/Vol] 13.1 g/dL Normal 11.8-15.4 [facility] Comment on above: Order Comment: Reaso n for Exam Obesity, morbid, BMI 50 or higher;Age-related osteoporosis w Result Comment: PERF ORMED BY: [place] [address] PATHOLOGIST MIRROR SILVERER SAMANTHA PEREZ M.D. Performed By: #### H GB, ALB, [id number], CUMRSA, A1C [facility] #### [address] #### NICOTINE #### [facility] , Hemoglobin A1c percentageOrd ered By: Luis Carlton on 09-26-2023 HbA1c (Bld) [Mass fraction] 5.3 % 4.3-5.6 [facility] Comment on above: Increased risk for d iabetes: 5.7 - 6.4diabetes: >6.4glycemic control for adults with diabetes: <7.0 Hemoglobin [Mass/volume] in BloodOrdered By: Luis Carlton on 09-26-2023 Hemoglobin (Bld) [Mass/Vol] 13.1 g/dL 11.8-15.4 [facility] MRSA Cultureon 09-26-2023 MRSA Culture Reason for Exam Obes ity, morbid, BMI 50 or higher;Age-related osteoporosis w Nasal Reason for Exam: Obesity, morbid, BMI 50 or higher;Age-related osteoporosis w : Nasal MRSA Culture Results No MRSA Isolated 2 Days PERFORMED BY: [place] [address] PATHOLOGIST MIRROR SILVERER SAMANTHA PEREZ M.D. Normal [facility] Comment on above: Performed By: #### H GB, ALB, [id number], CUMRSA, A1C WTH eA #### [facility] [address] [place] [address] [place] #### NICOTINE #### [facility] , Nicotine [Mass/volume] in Se rum or PlasmaOrdered By: Luis Carlton on 09-26-2023 Nicotine [Mass/Vol] <1.0 ng/mL . [facility] Comment on above: This test was develo ped and its performance characteristicsdetermined by [facility]. It has not been cleared orapproved by the Food and Drug Administration.Nicotine levels greater than 2.0 are consistent with theuse of tobacco or tobacco cessation products. Nicotine/Cotinine Bloodon Cotinine, Blood <1.0 Normal . [facility] Comment on above: Order Comment: Reaso n for Exam Obesity, morbid, BMI 50 or higher;Age-related osteoporosis w Result Comment: This test was developed and its performance characteristics determined by [facility]. It has not been cleared or approved by the Food and Drug Administration. Cotinine levels greater than 20.0 are consistent with the use of tobacco or tobacco cessation products. Performed at: [address] [id number] Engineer And Geologist: Vania Mendoza MD, Phone: [phone] PERFORMED BY: [place] [address] PATHOLOGIST MIRROR SILVERER SAMANTHA PEREZ M.D. Performed By: #### H GB, ALB, [id number], CUMRSA, A1C WTH eA #### [facility] [address] [place] [address] [place] #### NICOTINE #### [facility] , Nicotine, Blood <1.0 Normal . [facility] Comment on above: Order Comment: Reaso n for Exam Obesity, morbid, BMI 50 or higher;Age-related osteoporosis w Result Comment: This test was developed and its performance characteristics determined by [facility]. It has not been cleared or approved by the Food and Drug Administration. Nicotine levels greater than 2.0 are consistent with the use of tobacco or tobacco cessation products. Performed By: #### H GB, ALB, [id number], CUMRSA, A1C WTH eA #### [address] #### NICOTINE #### [facility] , Vitamin D 25 Hydroxy Totalon 09-26-2023 Vitamin D 25 Hydroxy Total 20.9 ng/mL Low 30-100 [facility] Comment on above: Order Comment: Reaso n for Exam Obesity, morbid, BMI 50 or higher;Age-related osteoporosis w Result Comment: RENATO MIN D STATUS 25(OH)VITAMIN D RANGE (ng/mL) Deficient <20 Insufficient 20 to <30 Sufficient 30 to 100 Reference: Brittnee Beltrán, Alana ATKINSON, et al. Evaluation,treatment, and prevention of vitamin D deficiency; an Endocrine Society clinical practice guideline. JCEM. 2010; 96(7):1911-30. PERFORMED BY: [place] [address] PATHOLOGIST MIRROR SILVERER SAMANTHA PEREZ M.D. Performed By: #### H GB, ALB, [id number], CUMRSA, A1C WTH eA #### [address] #### NICOTINE #### [facility] , Vitamin D+Metabolites [Mass/ volume] in Serum or PlasmaOrdered By: Luis Carlton on 09-26-2023 Vitamin D+Metabolites [Mass/Vol] 20.9 ng/mL 30-100 [facility] Comment on above: VITAMIN D STATUS 25( OH)VITAMIN D RANGE (ng/mL) Deficient <20 Insufficient 20 to <30Sufficient 30 to 100Reference: Brittnee Beltrán, Alana ATKINSON, et al. Evaluation,treatment, and prevention of vitamin D deficiency; an Endocrine Society clinical practice guideline. JCEM. 2010; 96(7):1911-30. Wound methicillin resistant Staphylococcus aureus (MRSA) cultureOrdered By: Luis Carlton on 09-26-2023 MRSA isol Org specific cx Ql (Unsp spec) [facility] XR shoulder LT min 2V*on XR shoulder LT min 2V* [address] [address] XRay Report Signed Patient: Nadya Kuhn MR#: [id number] : 1955 Acct:[id number] Age/Sex: 68 / F ADM Date: 07/13/23 Loc: [facility] [place] Room: Type: [facility] Attending Dr: Luis Carlton II, MD [...] Luis King M.D.07/13/2023 2:02 PM Dictation Location: [place] [address] Transcribed By: [facility] 07/13/23 1402 Dictated By: Angel Luis King DO 07/13/23 1401 Signed By: 07/13/23 1402 Normal [facility] XR shoulder LT min 2V* [facility] [employer] Other XR shoulder LT min 2V* [facility] [employer] Other XR shoulder LT min 2V* [address] [facility] [employer] Other XR shoulder LT min 2V* [place] [address] [facility] [employer] Other XR shoulder LT min 2V* XRay Report [employer] Other XR shoulder LT min 2V* Signed [employer] Other XR shoulder LT min 2V* Patient: Nadya Kuhn MR#: [id number] [employer] Other XR shoulder LT min 2V* 1147 [employer] Other XR shoulder LT min 2V* : 1955 Acct:[id number] [employer] Other XR shoulder LT min 2V* Age/Sex: 68 / F ADM Date: 07/13/23 [employer] Other XR shoulder LT min 2V* Loc: [facility] Room: Type: [facility] [employer]) Other XR shoulder LT min 2V* Attending Dr: Luis Carlton II, MD [employer] Other XR shoulder LT min 2V* Copies to: Luis Carlton MD [employer] Other XR shoulder LT min 2V* Ordering Provider: Luis Carlton MD [employer] Other XR shoulder LT min 2V* Date of Service: 07/13/23 [employer] Other XR shoulder LT min 2V* XR/XR shoulder LT min 2V*: PAIN [employer] Other XR shoulder LT min 2V* 3 views LEFT shoulder plain film [employer] Other XR shoulder LT min 2V* HISTORY: Generalized LEFT shoulder pain for weeks [employer] Other XR shoulder LT min 2V* COMPARISON: None [employer] Other XR shoulder LT min 2V* ACUTE FINDINGS: None [employer] ([employer] Other XR shoulder LT min 2V* DEGENERATIVE CHANGE: Spurring of acromioclavicular joint and glenohumeral joint. Adequate joint [employer] ([employer]) Other XR shoulder LT min 2V* space. [employer] ([employer] Other XR shoulder LT min 2V* SOFT TISSUE FINDINGS: Unremarkable [employer] ([employer] Other XR shoulder LT min 2V* JOINT EFFUSION: None [employer] ([employer]) Other XR shoulder LT min 2V* POSTOP CHANGES: None [employer] ([employer]) Other XR shoulder LT min 2V* BONY MINERALIZATION: Adequate [employer] Other XR shoulder LT min 2V* XR/XR shoulder LT min 2V* [employer] ([employer] Other XR shoulder LT min 2V* IMPRESSION: Degenerative change. [employer] ([employer] Other XR shoulder LT min 2V* Impression dictated by: Angel Luis King M.D.07/13/2023 2:02 PM [employer] ([employer] Other XR shoulder LT min 2V* Dictation Location: [place] [address] [employer] ([employer]) Other XR shoulder LT min 2V* Transcribed By: [facility] 07/13/23 [facility] [employer] Other XR shoulder LT min 2V* Dictated By: Angel Luis King DO 07/13/23 [facility] [employer] Other XR shoulder LT min 2V* Signed By: [employer] ([employer]) Other XR shoulder LT min 2V* 07/13/23 [facility] [employer]) Other XR hip LT min 2V(w/wo pelvis )*on 05-12-2023 XR hip LT min 2V(w/wo pelvis)* [facility] [place] [address] [place] [address] XRay Report Signed Patient: Nadya Kuhn MR#: [id number] : 1955 Acct:[id number] Age/Sex: 68 / F ADM Date: 05/12/23 Loc: [facility] Room: Type: [facility] Attending Dr: Luis Carlton II, MD Copies to: Luis Carlton MD Ordering Provider: Luis Carlton MD Date of Service: 05/12/23 XR/XR hip LT min 2V(w/wo pelvis)*: PAIN ([id number]) XR/XR knee LT 4V*: PAIN CLINICAL DATA: [...] Mariel Melchor M.D.05/12/2023 2:13 PM Dictation Location: [place] [address] Transcribed By: [facility] 05/12/23 1413 Dictated By: Mariel Melchor MD 05/12/23 1408 Signed By: 05/12/23 141 Normal [facility] LIPID PROFILEon 10-27-2022 CHOL-HDL RATIO NORM SEE BELOW Normal [facility] Comment on above: Result Comment: 3.3 - 4.4 LOW RISK 4.4 - 7.1 AVERAGE RISK 7.1 - 11.0 MODERATE RISK >11.0 HIGH RISK Performed By: #### L IPID, LIVER #### [facility] [address] [place] [address] [address] Favio Cueto Cholesterol [Mass/Vol] 168 mg/dL Normal <=200 [facility] Comment on above: Performed By: #### L IPID, LIVER #### [facility] [address] [place] [address] [address] Favio Cueto Cholesterol in HDL [Mass/Vol] 61 mg/dL Critically high 40-60 [facility] Comment on above: Performed By: #### L IPID, LIVER #### [facility] [address] [place] [address] Dr. Favio Cueto Cholesterol in LDL [Mass/Vol] 91.4 mg/dL Normal [facility] Comment on above: Performed By: #### L IPID, LIVER #### [facility] [address] [place] [address] Dr. Favio Cueto Cholesterol.total/Cho lesterol in HDL [Mass ratio] 2.8 {ratio} Normal [facility] Comment on above: Performed By: #### L IPID, LIVER #### [facility] [address] [place] [address] Dr. Favio Cueto HDL NORMAL > or = 60 mg/dl - LO W CARDIOVASCULAR RISK <40 mg/dl - HIGH CARDIOVASCULAR RISK Normal [facility] Comment on above: Performed By: #### L IPID, LIVER #### [facility] [address] [address] [address] Favio Cueto LDL CALC NORMAL SEE BELOW Normal [facility] Comment on above: Result Comment: <100 mg/dl OPTIMAL 100 - 129 mg/dl NEAR OR ABOVE OPTIMAL 130 - 159 mg/dl BORDERLINE HIGH 160 - 189 mg/dl HIGH >190 mg/dl VERY HIGH Performed By: #### L IPID, LIVER #### [facility] [address] [address] [address] Favio Cueto Triglyceride [Mass/Vol] 78 mg/dL Normal <=150 [facility] Comment on above: Performed By: #### L IPID, LIVER #### [facility] [address] [place] [address] Dr. Favio Cueto VLDL CALC 15.6 mg/dL Normal [facility] Comment on above: Performed By: #### L IPID, LIVER #### [facility] [address] [place] [address] Dr. Favio Cueto LIVER PROFILEon 10-27-2022 Albumin [Mass/Vol] 4.3 g/dL Normal 3.4-5.0 [facility] Comment on above: Performed By: #### L IPID, LIVER #### [facility] [address] [place] [address] Dr. Favio Cueto Albumin/Globulin [Mass ratio] 1.5 {ratio} Normal [facility] Comment on above: Performed By: #### L IPID, LIVER #### [facility] [address] [place] [address] Dr. Favio Cueto ALP [Catalytic activity/Vol] 55 U/L Normal 46-116 [facility] Comment on above: Performed By: #### L IPID, LIVER #### [facility] [address] [place] [address] Dr. Favio Cueto ALT [Catalytic activity/Vol] 23 U/L Normal 14-59 [facility] Comment on above: Performed By: #### L IPID, LIVER #### [facility] [address] [place] [address] Dr. Favio Cueto AST [Catalytic activity/Vol] 15 U/L Normal 15-37 [facility] Comment on above: Performed By: #### L IPID, LIVER #### [facility] [address] [place] [address] Dr. Favio Cueto BILI, CONJUGATED 0.2 mg/dL Normal 0.0-0.2 [facility] Comment on above: Performed By: #### L IPID, LIVER #### [facility] [address] [place] [address] Dr. Favio Cueto Bilirubin [Mass/Vol] 0.7 mg/dL Normal 0.2-1.0 [facility] Comment on above: Performed By: #### L IPID, LIVER #### [facility] [address] [address] [address] Favio Cueto Globulin (S) [Mass/Vol] 2.8 g/dL Normal [facility] Comment on above: Performed By: #### L IPID, LIVER #### [facility] [address] [id number] [address] Favio Cueto Protein [Mass/Vol] 7.1 g/dL Normal 6.4-8.2 [facility] Comment on above: Performed By: #### L IPID, LIVER #### [facility] [address] [place], [place] [id number] Dr. Favio Cueto MG MAMM SCREEN 3D ARCHIE CADon 10-27-2022 MG MAMM SCREEN 3D ARCHIE CAD Patient: NADYA KUHN Exam Date: 10/27/2022 : 1955 Gender:F Ordering : SHAIKH Rosa SANTORO . Admission #: [id number] Family : Order #: [id number] CLICK HERE TO VIEW EXAM RADIOLOGY REPORT PROCEDURE: MAMMOGRAM SCREENING 3D BILATERAL CAD COMPARISON: None. INDICATIONS: Screening mammography Calculator Name NCI Breast Cancer Risk Assessment Tool 5 Year Breast Cancer Risk 1.30% Lifetime Breast Cancer Risk 5.00% Personal Breast Cancer No Personal Ovarian Cancer No Treatments None Family Cancers None LOCATION: [facility] BREAST COMPOSITION: Heterogeneously dense,which may obscure small [...] Hardy MD on 11/23/2022 at 08:22 Normal [facility] CT LUNG CANCER SCREENINGon 0 04-05-2022 [...] by: HOLLIE HARDY Date: 2022-04-05 10:37 Normal [facility] Vital Signs Date Time Vital Sign Value Performing Clinician Keri watson 10-23-2023 16:00-0400 Diastolic blood pressure 68 mm[Hg] PHYSICIAN NO [facility] 10-23-2023 16:00-0400 Heart rate 68 /min PHYSICIAN NO [facility] 10-23-2023 16:00-0400 Respiratory rate 16 /min PHYSICIAN NO [facility] 10-23-2023 16:00-0400 SaO2% (BldA) [Mass fraction] 99 % PHYSICIAN NO [facility] 10-23-2023 16:00-0400 Systolic blood pressure 120 mm[Hg] PHYSICIAN NO [facility] 10-23-2023 12:33-0400 Body temperature 98.6 [degF] PHYSICIAN NO [facility] 10-23-2023 12:33-0400 Inhaled oxygen flow rate 10 L/min PHYSICIAN NO [facility] 10-23-2023 08:59-0400 Body height 160.[address] [facility] 10-23-2023 08:59-0400 Body mass index (BMI) [Ratio] 23.4 kg/m2 PHYSICIAN NO [facility] 10-23-2023 08:59-0400 Body weight [address] [facility] 10-13-2023 08:41-0400 Body height 160.[address] [facility] 10-13-2023 08:41-0400 Body mass index (BMI) [Ratio] 23.6 kg/m2 PHYSICIAN NO [facility] 10-13-2023 08:41-0400 Body weight 60.[address] [facility] Encounters Encounter Date Encounter Type Care Provider Facility Start: 12-06-2023 End: 12-06-2023 ambulatory [facility] Facility:[facility] Start: 12-06-2023 End: 12-06-2023 ambulatory PHYSICIAN NO [facility] Work Phone: Start: 12-06-2023 End: 12-06-2023 Patient encounter procedure PHYSICIAN NO [facility] Work Phone: Start: 11-08-2023 End: 11-08-2023 ambulatory PHYSICIAN NO [facility] Work Phone: Start: 11-08-2023 End: 11-08-2023 Patient encounter procedure PHYSICIAN NO [facility] Work Phone: Start: 10-23-2023 End: 10-23-2023 [facility] Start: 10-23-2023 End: 10-23-2023 Admission to same day surgery center PHYSICIAN NO [facility] [place] Start: 10-23-2023 End: 10-23-2023 ambulatory PHYSICIAN NO [facility] Work Phone: Start: 10-23-2023 Non-patient / Non-visit PHYSICIAN NO [facility] Work Phone: Start: 10-13-2023 ambulatory [facility] Facility: [facility] Start: 10-13-2023 Registered Recurring PHYSICIAN NO [facility] [place] Start: 10-13-2023 End: 10-13-2023 ambulatory PHYSICIAN NO [facility] Work Phone: Start: 10-13-2023 End: 10-13-2023 Patient encounter procedure PHYSICIAN NO [facility] Work Phone: Start: 10-12-2023 End: 10-12-2023 ambulatory SHAIKH ANGELD Not Available Start: 10-10-2023 End: 10-10-2023 ambulatory Shaikh Angeld Facility:[facility] Start: 10-10-2023 End: 10-10-2023 Patient encounter procedure PHYSICIAN NO [facility] Work Phone: Start: 10-03-2023 End: 10-03-2023 ambulatory SHAIKH ANGELD Not Available Start: 09-26-2023 End: 09-26-2023 ambulatory PHYSICIAN NO [facility] Facility:[facility] Start: 09-26-2023 End: 09-26-2023 Patient encounter procedure PHYSICIAN NO [facility] [place] Work Phone: Start: 09-21-2023 End: 09-21-2023 ambulatory SHAIKH EHWAD Not Available Start: 08-23-2023 End: 08-23-2023 ambulatory Luis Carlton II Other [employer] Other Start: 08-23-2023 Office outpatient visit 40 minutes Luis Carlton II [facility] Start: 08-08-2023 End: 08-08-2023 ambulatory OLSEN FAWWAD Not Available Start: 07-13-2023 Office outpatient visit 25 minutes Luis Carlton II [facility] Start: 07-13-2023 End: 07-13-2023 ambulatory Luis Carlton II [employer] Other Start: 07-10-2023 End: 07-10-2023 ambulatory Luis Carlton II Other [email or web address] [email or web address] [email or web address] Other Start: 07-10-2023 Telephone encounter [facility] Start: 05-12-2023 End: 05-12-2023 ambulatory PHYSICIAN NO FAMILY Facility:[facility] Start: 05-12-2023 End: 05-12-2023 ambulatory MD Luis Carlton II Work Phone: [facility] Work Phone: Start: 05-12-2023 End: 05-12-2023 Patient encounter procedure MD Luis Carlton II Work Phone: [facility] Start: 10-27-2022 End: 10-28-2022 ambulatory SHAIKH Trino SANTORO Facility:[facility] Start: 04-05-2022 End: 04-06-2022 ambulatory SHAIKH Trino SANTORO Facility:[facility] Procedures Date Procedure Procedure Detail Performing Clinician Start: 12-06-2023 Plain X-ray of left hip PHYSICIAN NO FAMILY Start: 10-23-2023 Plain X-ray of left hip PHYSICIAN NO FAMILY Start: 10-23-2023 Total replacement of left hip joint PHYSICIAN NO FAMILY Start: 10-23-2023 Plain X-ray of left hip PHYSICIAN NO FAMILY Start: 10-10-2023 Antibody screen Shaikh Maude Comment on above: Order Comment: Date of Surgery: 20231023 Result Comment: PERF ORMED BY: [facility] [address] [place] [address] PATHOLOGIST MIRROR SILVERER SAMANTHA PEREZ M.D. Start: 09-26-2023 Methicillin resistan t Staphylococcus aureus culture PHYSICIAN NO FAMILY Start: 05-12-2023 Plain X-ray of left hip MD Luis Carlton II Work Phone: Start: 05-12-2023 Radiologic examinati on of knee MD Luis Carlton II Work Phone: Plan of Treatment Date Care Activity Detail Author Start: 12-06-2023 Plain X-ray of left hip XR hip LT min 2V(w/wo pelvis)* [facility] Start: 12-06-2023 XR Hip - left 2 Views F [facility] Start: 10-23-2023 End: 10-23-2023 [facility] Immunizations Immunization Date Immunization Notes Care Provider Sophia hawk 03-07-2021 COVID-19 mRNA, Comirnaty (Pfizer) PHYSICIAN NO [facility] 02-14-2021 COVID-19 mRNA, Comirnatfina (Pfizer) PHYSICIAN NO [facility] Payers Date Payer Category Payer Private Health Insurance [id number] 2023 Self-pay 2021 Medicare [id number] 1957 Medicare [id number] 1955 Unknown [id number] 2.16.84 [id number] 1955 Unknown [id number] 2.16.84 [id number] 1955 Unknown [id number] 2.16.84 [id number] 1955 Unknown [id number] 2.16.84 [id number] 1955 Unknown [id number] 2.16.84 [id number] 1955 Unknown [id number] 2.16.84 0.1.170794.3.579.2.1259 Unknown [id number] 2.16.8 40.1.352958.3.579.2.531 Unknown [id number] 2.16.8 [id number] Unknown [id number] 2.16.8 40.1.146340.3.579.2.531 Unknown [id number] 2.16.8 40.1.929013.3.579.2.531 Unknown [id number] 2.16.8 40.1.406359.3.579.2.531 Unknown [id number] 2.16.8 [id number] Unknown [id number] 2.16.8 [id number] Social History Date Type Detail Facility Tobacco smoking status UTIS Unknown if ever smoked [facility] Work Phone: Start: 1955 Sex Assigned At Female [facility] Sex Assigned At Sex Assigned At [employer] Other Start: 10-10-2023 End: 10-23-2023 Tobacco smoking status NHIS Ex-smoker (finding) [facility] NEGATED: Highlighted row [facility] Medical Equipment Procedure Code Equipment Code Equipment Origin al Text Equipment Identifier Dates Arthroplasty, hip, total, anterior approach Acetabular shell [id number] FDA Start: 10-23-2023 Arthroplasty, hip, total, anterior approach Ceramic femoral head prosthesis ()[id number] FDA Start: 10-23-2023 Arthroplasty, hip, total, anterior approach Coated hip femur prosthesis, modular ()[id number] FDA Start: 10-23-2023 Arthroplasty, hip, total, anterior approach Non-constrained polyethylene acetabular liner ()[id number] FDA Start: 10-23-2023 Goals Date Patient Goal [...] pathological fracture (ICD-10 - M81.0) Jul, 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 [employer] Other Evaluation note 07-13-2023 Note Date & [...] both the hip and the knee being xvzo-vk-uoal arthritis I still feel that the most [...] her back in 6 weeks for reevaluation. [employer] Other Evaluation note 07-10-2023 Note Date & Type Note Facility 07-10-2023 Evaluation note Encounter Date Diagnosis Assessment Notes Jun, Left hip pain (ICD-10 - M25.552) [email or web address] [email or web address] [email or web address] Other Evaluation note Note Date & Type Note Facility Evaluation note No assessment information availa [facility] Work Phone: Evaluation note Note Date & Type Note Facility Evaluation note Diagnosis Onset Date Primary osteoarthritis of left hip acute [facility] Work Phone: Evaluation note Note Date & Type Note Facility Evaluation note Diagnosis Onset Date Primary osteoarthritis of left hip acute Aftercare following left hip joint replacement surgery acute Presence of left artificial hip joint acute Aftercare following left hip joint replacement surgery acute Presence of left artificial hip joint acute [facility] Work Phone: History general Narrative - Reported Note Date & Type Note Facility History general Narrative - Reported Type Medical History hypercholesterolemia Medical History emphysema-mild Surgical History C section x2 Surgical History tonsillectomy Surgical History RTHA Surgical History ear surgery [facility] [email or web address] Other Hospital Discharge instructions Note Date & Type Note Facility Hospital Discharge instructions Additional Instructions Joint Replacement Discharge Instructions Your safety during your recovery process is important to us. Please seek immediate emergency care if you have sudden chest pain or shortness of breath. Additionally, please call our office at [phone] should any of the following occur: wound [...] time or it could last forever. STEFANI vanninette): Wear them for 4 weeks on the operative side and 2 weeks on the nonoperative side. Try to wear these as 24/7 as possible to help decrease swelling. Weight Bearing, Walkers, and Canes: Do not remove your knee immobilizer. Do not walk without this until your therapist has removed it either on the first day after surgery or the second day after surgery. Do not attempt to walk without your walker and your doggy daycare activities director until the therapist checks you the following [...] and/or laxatives as directed. You may take wzst-fko-brkqogd Benadryl if itching occurs without a rash or hives. Icing and elevation will help relieve pain as well, do not underestimate the power of ice and elevation. We do recommend that you stop taking narcotic pain medications by 4-6 weeks after surgery and if necessary, continue to use anti-inflammatory medications such as Mobic (meloxicam), Celebrex (celecoxib), or an rlcm-phg-dgumjfx medication (Aleve, Motrin, Ibuprofen, etc). Driving an [...] feel free to call our office at [phone]. You are a priority of ours and we will not be upset with you if you call. We would much rather you call to confirm aspects of your recovery process as opposed to possibly hindering your recovery with inappropriate care. We are committed to providing you with the best care possible. Luis Carlton II, MD Updated 08/21/23 [facility] Work Phone: Summary Purpose Family History No Family History Records Found Relationship Condition Age at Onset Recorded Date/T logan father Hyperlipidemia Unknown Chronic obstructive pulmonary disease Unk nown Hypertension Unknown Abdominal aortic aneurysm (AAA) Unknown Not Specified Congestive heart failure Unknown Atrial fibrillation Unknown Hyperlipidemia Unknown brother Hyperlipidemia Unknown Advance Directives No Advanced Directives Records Found Advance Directive Response Recorded Date/ Time Advance [...] Hip pain 2 WK POST OP LTHA 4 WK RECHECK Z96.642 - Presence of left artificial hip joint Reason for Visit Primary osteoarthrit is of left hip Aftercare following left hip joint replacement surgery Presence of left artificial hip joint Aftercare following left hip joint replacement surgery Presence of left artificial hip joint Additional Source Comments INFORMATION SOURCE (unrecogn ized section and content) DATE CREATED AUTHOR 11/24/2022 [facility] DATE CREATED AUTHOR AUTHOR'S ORGANIZ ATION 10/13/2023 [facility] EPIC DATE CREATED AUTHOR AUTHOR'S ORGANIZ ATION 12/11/2023 [facility] Care Teams (unrecognized sec tion and content) [...] Status Dates Luis Carlton II, MD [facility] Active Start: October 23, [...] November 08, 2023 End: November 08, 2023 Team Status: Inactive Member Role Status Dates Luis Carlton II, MD Attending Provider Active Start: December 06, 2023 End: December 06, 2023 Shaikh Maude MD Primary Care Provider Active Start: December 06, 2023 End: December 06, 2023 Team Status: Active Member Role Status Dates Luis Carlton II, MD Attending Provider Active Start: December 06, 2023 Shaikh Maude MD Primary Care Provider Active Start: December 06, 2023 Goals (unrecognized section and content) Goals [...] BE BASED ON THE PRIMARY CLINICAL RECORDS. [employer] provides no warranty or guarantee of the accuracy or completeness of information in this document.
[2023-12-20 12:09] LABS: Age Gdln ACOG Testing Note (.); Pap IG (Image Guided) Note (.)
== END 2023-12-14 20:02 | disposition home or self-care (01) ==
LOC: LAB 20:01
PROVIDERS: PCP Internal Medicine; Visit Provider Obstetrics & Gynecology
DX: Z01.419 Encounter for gynecological examination (general) (routine) without abnormal findings (principal)
CPT/HCPCS: G0145

== ENCOUNTER 2024-01-15 08:01 | Outpatient (OUT) | payer MEDICARE, SELFPAY ==
--- OUTSIDE RECORDS SUMMARY | 2024-01-15 08:14 | XMS_ITS | CCD ---
Author Organization [facility] Care Team Providers Care Manager Vehicle Name Role Phone FAWWAD, AVILES H Admitting Unavailable FAWWAD, AVILES H Attending Unavailable FAFRANCESCO SALEHIKH H Primary Care Unavailable DR HOLLIE HARDY V Consulting Unavailable FAWWAD, AVILES H Consulting Unavailable FAWWAD, AVILES H Admitting Unavailable FAWWAD, AVILES H Attending Unavailable FARemyWAD, AVILES H Consulting Unavailable MD Luis Carlton II Attending Provider [phone] Luis Carlton II Unavailable [phone] NO FAMILY, PHYSICIAN Primary Care Provider Unava ilable MD Luis Carlton II Attending Provider [phone] MD Stefan Santoro Primary Care Provider SHAIKH SANTORO Attending Unavailable SHAIKH SANTORO Attending Unavailable SHAIKH SANTORO Attending Unavailable MAUDE, Attending Unavailable NEETA MILLER Attending Unavailable SHAIKH SANTORO Attending Unavailable MD Luis Carlton II Attending Provider MD Stefan Santoro Primary Care Provider [phone] Shaikh Santoro Primary Care Unavailable Luis Carlton II Attending UnavailLuis Talavera II Admitting Unavailabl e NO FAMILY, PHYSICIAN Primary Care Unavailable Luis Carlton II Admitting UnavailLuis Talavera II Attending UnavailLuis Talavera II Admitting Unavailabl e NO FAMILY, PHYSICIAN Primary Care Unavailable Luis Carlton II Attending Unavailabl e NO FAMILY, PHYSICIAN Primary Care Unavailable Luis Carlton II Attending Fabiano Carlton II, Luis Egan Admitting Unavailabl eber Santoro, [facility] Unavailable Julian STEVENSON, Luis Egan Attending Fabiano Carlton II, Luis Eagn Admitting Unavailabl e Maude, [facility] Unavailable Julian STEVENSON, Luis Egan Attending Fabiano Carlton II, Luis Egan Admitting Fabiano e Maude, [facility] Unavailable Julian STEVENSON, Luis Egan Attending Fabiano Carlton II, Luis Egan Admitting Unavailabl e Allergies Allergy Classification Reported Allergen(s) Allergy Type Date of Onset Reaction(s) Facility (1 source) Penicillins Drug allergy (disorder) 10-10-2023 [facility] Repository Medications Current Medications Medication Drug Class(es) Dates Sig (Normalized) Sig (Original) atorvastatin 20 mg oral tablet (3 sources) HMG-CoA Reductase Inhibitor Atorvastatin Calcium 20 MG Oral for 90 Days Active calcium carbonate 1500 mg / cholecalciferol 0.01 mg oral capsule (10 sources) Vitamin D Start: 10-10-2023 take 1 capsule by mouth once daily Calcium Carbonate-Vitamin D3 Active 1 CAP PO Daily October 10, 2023 12:00am Start: 05-12-2023 take 1 tablet by vi th every twelve hours Calcium-Vitamin D 600-3.125 MG-MCG 1 tablet Orally Twice a day for 30 day(s) Apr, Active ergocalciferol 1.25 mg oral capsule (7 sources) Provitamin D2 Compound Start: 09-28-2023 take [...] Apr, Active naproxen 500 mg oral tablet (10 sources) Nonsteroidal Anti-inflammatory Drug Start: 10-10-2023 take 1 tablet by mouth twice daily as needed for pain Naproxen Active 500 MG PO Twice daily October 10, 2023 12:00am FreeTextSig: TAKE 1 TABLET BY MOUTH 2 TIMES PER DAY NEEDED FOR PAIN Oral; Note: Source Status: Taking; Refills: 0; Qty: 180 Each; Provider: MAUDE AVILES take 1 tablet by vi th twice daily as needed for pain Naproxen 500 MG TAKE 1 TABLET BY MOUTH 2 TIMES PER DAY NEEDED FOR PAIN Oral for 90 Days Active rosuvastatin calcium 20 mg oral tablet (7 sources) HMG-CoA Reductase Inhibitor Start: 10-10-2023 take 20 mg by mouth once daily in the morning Rosuvastatin Active 20 MG PO Every morning October 10, 2023 12:00am Sod Picosulf-Mag Ox-Citric Ac (1 source) Start: 12-18-2023 take 1 dose by mouth once daily Sod Picosulf-Mag Ox-Citric Ac (Clenpiq) 10 mg-3.5 gram- 12 gram/175 mL solution Active 175 ML PO Daily 350 0 December 18, 2023 12:00am take first dose at 3PM evening before colonoscopy; 2nd dose at 9pm the night before colonoscopy Completed/Discontinued Medications Medication Drug Class(es) Dates Sig (Normalized) Sig (Original) acetaminophen 500 mg oral tablet (7 sources) Start: 10-13-2023 End: 12-06-2023 take 1000 mg by mouth every eight hours Acetaminophen Discontinued 1000 MG PO Q8H 180 30 October 13, 2023 12:00am December 06, 2023 11:18am DO NOT RECONCILE UNTIL DOS:10/23/2023 MED TO BED amoxicillin 875 mg / clavulanate 125 mg oral tablet (7 sources) Penicillin-class Antibacterial Start: 10-13-2023 End: 11-08-2023 Amoxicillin-Pot Clavulanate Discontinued TAB PO October 13, 2023 12:00am November 08, 2023 8:48am aspirin 81 mg delayed release oral tablet (7 sources) Platelet Aggregation Inhibitor, Nonsteroidal Anti-inflammatory Drug Start: 10-13-2023 End: 12-06-2023 take 81 mg by mouth twice daily Aspirin Discontinued 81 MG PO Twice daily 70 35 October 13, 2023 12:00am December 06, 2023 11:18am DO NOT RECONCILE UNTIL DOS:10/23/2023 MED TO BED cefadroxil 500 mg oral capsule (7 sources) Cephalosporin Antibacterial Start: 10-13-2023 End: 11-08-2023 take 500 mg by mouth every twelve hours Cefadroxil Discontinued 500 MG PO Q12H 14 7 October 12, 2024 12:00am November 08, 2023 8:48am DO NOT RECONCILE UNTIL DOS:10/23/2023 MED TO BED celecoxib 200 mg oral capsule (7 sources) Nonsteroidal Anti-inflammatory Drug Start: 10-13-2023 End: 12-06-2023 take 200 mg by mouth twice daily Celecoxib Discontinued 200 MG PO Twice daily 60 October 13, 2023 12:00am December 06, 2023 11:18am DO NOT RECONCILE UNTIL DOS:10/23/2023 MED TO BED docusate sodium 50 mg / sennosides, senior care 8.6 mg oral tablet (7 sources) Start: 10-13-2023 End: 11-08-2023 take 2 tablets by mouth once daily Sennosides-Docusat e Sodium (Senokot-S) 8.6-50 mg tablet Discontinued 2 TAB PO daily 60 October 13, 2023 12:00am November 08, 2023 8:48am DO NOT RECONCILE UNTIL DOS:10/23/2023 MED TO BED ondansetron 4 mg oral tablet (7 sources) Serotonin-3 Receptor Antagonist Start: 10-13-2023 End: 11-08-2023 take 4 mg by mouth every eight hours Ondansetron Hcl Discontinued 4 MG PO Q8H October 13, 2023 12:00am November 08, 2023 8:48am DO NOT RECONCILE UNTIL DOS:10/23/2023 MED TO BED oxyCODONE hydrochloride 5 mg oral tablet (7 sources) Opioid Agonist Start: 10-13-2023 End: 11-08-2023 take 5 mg by mouth every four hours Oxycodone Discontinued 5 MG PO Q4H 42 October 13, 2023 November 08, 2023 8:48am DO NOT RECONCILE UNTIL DOS:10/23/2023 MED TO BED polyethylene glycol 3350 53040 mg powder for oral solution (7 sources) Osmotic Laxative Start: 10-13-2023 End: 11-08-2023 Polyethylene Glycol 3350 (Miralax) 17 gram/dose powder Discontinued 17 GM PO daily 7 October 13, 2023 12:00am November 08, 2023 8:48am 1 packed mixed with 8 ounces of fluid. DO NOT RECONCILE UNTIL DOS:10/23/2023 MED TO BED traMADol hydrochloride 50 mg oral tablet (17 sources) Opioid Agonist Start: 10-13-2023 End: 11-08-2023 take 50 mg by mouth every six hours Tramadol Discontinued 50 MG PO Q6H 40 10 October 13, 2023 12:00am November 08, 2023 [...] pathological fracture] Onset: 09-26-2023 Chronic Other aftercare (3 sources) Patient encounter status; Translations: [Aftercare following joint replacement surgery] 11-08-2023 Chronic Other aftercare (7 sources) Aftercare following joint replacement surgery; Translations: [Aftercare following joint replacement] Onset: 12-06-2023 11-08-2023 Chronic Other connective tissue disease (3 sources) Hip joint prosthesis present; Translations: [Presence of left artificial hip joint] 11-08-2023 Chronic Other connective tissue disease (6 sources) Presence of left artificial hip joint; Translations: [Hip joint replacement] 04-10-2024 Chronic Other connective tissue disease (2 sources) [...] 04-05-2022 Episodic Unclassified (1 source) Encounter for preprocedural laboratory [...] Classification Problem Date Documented Da te Episodic/Chronic Other aftercare (2 sources) Other intermediate designer (current) drug therapy; Translations: [Other usp (current) drug therapy] Onset: 09-26-2023 Episodic Screening and history of mental health and substance abuse codes (1 source) Personal history of nicotine dependence; Translations: [PERSONAL HISTORY OF NICOTINE DEPEND] Onset: 04-10-2022 Episodic Results Test Name Value Interpretation Reference Range Facility XR hip LT min 2V(w/wo pelvis )*on 12-06-2023 XR hip LT min 2V(w/wo pelvis)* [facility] [address] [place] [address] XRay Report Signed Patient: Nadya Kuhn MR#: [id number] : 1955 Acct:[id number] Age/Sex: 68 / F ADM Date: 12/06/23 Loc: [facility] Room: Type: [facility] Attending Dr: Luis Carlton II, [...] Luis King M.D.12/06/2023 2:13 PM Dictation Location: [place] [address] Transcribed By: [facility] 12/06/23 1413 Dictated By: Angel Luis King DO 12/06/23 1413 Signed By: 12/06/23 1413 Normal [facility] ABO/Rh Retypeon 10-23-2023 ABO/RH Recheck Result Positive Normal [facility] Comment on above: Result Comment: PERF ORMED BY: [facility] [address] [place] [address] PATHOLOGIST [employer] PEST CONTROL REPRESENTATIVE SAMANTHA PEREZ M.D. Amphetamine Screen Ql (U)Ord ered By: Jose Martin Nieves on 10-23-2023 Amphetamines Ql (U) Negative Negative [facility] Barbiturates [Presence] in U rine by Screen methodOrdered By: Jose Martin Nieves on 10-23-2023 Barbiturates Screen Ql (U) Negative Negative [facility] Benzodiazepines Screen Ql (U )Ordered By: Jose Martin Nieves on 10-23-2023 Benzodiazepines Ql (U) Negative Negative [facility] Benzoylecgonine [Presence] i n Urine by Screen methodOrdered By: Jose Martin Nieves on 10-23-2023 Benzoylecgonine Screen Ql (U) Negative Negative [facility] Cannabinoids [Presence] in U rine by Screen methodOrdered By: Jose Martin Nieves on 10-23-2023 Cannabinoids Screen Ql (U) Negative Negative [facility] Comment on above: These are unconfirme d results and should not be used for legal purposes. Drug Cut-Off Concentration: AMPH 1000 ng/mL SONIDO 200 ng/mL MICHELLE 200 ng/mL COCM 300 ng/mL OP 300 ng/mL PCP 25 ng/mL THC 20 ng/mL Drug Screen,Urineon 10-23-19 Amphetamine Screen,Urine Negative Normal Negative [facility] Comment on above: Performed By: #### U RDS ####[place] [id number] [facility] Barbiturate Screen,Urine Negative Normal Negative [facility] Comment on above: Performed By: #### U RDS ####[place] [id number] [facility] Benzodiazepines Screen,Urine Negative Normal Negative [facility] Comment on above: Performed By: #### U RDS ####[address] Cannabinoid Screen,Urine Negative Normal Negative [facility] Comment on above: Result Comment: Thes e are unconfirmed results and should not be used for legal purposes. Drug Cut-Off Concentration: AMPH 1000 ng/mL SONIDO 200 ng/mL MICHELLE 200 ng/mL COCM 300 ng/mL OP 300 ng/mL PCP 25 ng/mL THC 20 ng/mL PERFORMED BY: [facility] [address] [place] [address] PATHOLOGIST COMMERCIAL PEST CONTROL REPRESENTATIVE SAMANTHA PEREZ M.D. Performed By: #### U RDS ####[place] [id number] [facility] Cocaine Screen,Urine Negative Normal Negative [facility] Comment on above: Performed By: #### U RDS ####[place] [id number] [facility] Opiate Screen,Urine Negative Normal Negative [facility] Comment on above: Performed By: #### U RDS ####[place] [id number] [facility] Phencyclidine Screen,Urine Negative Normal Negative [facility] Comment on above: Performed By: #### U RDS ####[place] [id number] [place] Romeo 10-23-2023 L Specimen: Received: 10/23/23 Status: NAHEED Garcia Num: [id number] Spec Type: Surgical Subm Dr: Luis Carlton MD Tissues: A Femoral Head - Other than Fracture (LT HIP) Procedures: HE/2, Gross/Micro L3, Decalcification Age/ Patient Sex Location Account Attending Physician Nadya Kuhn 68/F [place] [id number] Luis Carlton MD SPEC NUM: RECD: 10/23/23 STATUS: NAHEED GARCIA NUM: [id number] RAMÓN: 10/23/23- SUBM DR: Luis Carlton MD ENTERED: 10/23/23 [facility] DR: SPEC TYPE: Surgical DEPT: S ORDERED: [...] is taken. Gross examination only. CPT Codes 17545 Specimen: Received: 10/23/23 Status: SHARAPepe Garcia Num: [id number] Spec Type: Surgical Subm Dr: Luis Carlton MD Tissues: A Femoral Head - Other than Fracture (LT HIP) Procedures: HE/2, Gross/Micro L3, Decalcification Patient: Nadya Kuhn [id number] (Continued) Specimen: [id number] Received: 10/23/23 (Continued) Signed (signature on file) Edgardo Doll MD 10/24/231230 Specimen: [id number] Received: 10/23/23 Status: NAHEED Garcia Num: [id number] Spec Type: Surgical Subm Dr: Luis Carlton MD Tissues: A Femoral Head - Other than Fracture (LT HIP) Procedures: /2, Gross/Micro L3, Decalcification Patient: Nadya Kuhn [id number] (Continued) Specimen: Received: 10/23/23 (Continued) Stephan Photo Specimen: Received: 10/23/23 Status: NAHEED Garcia Num: [id number] Spec Type: Surgical Subm Dr: Luis Carlton MD Tissues: A Femoral Head - Other than Fracture (LT HIP) Procedures: HE/2, Gross/Micro L3, Decalcification Patient: Nadya Kuhn [id number] (Continued) Signed (signature on file) Edgardo Doll MD 10/24/23 1231 Normal [facility] Opiates [Presence] in Urine by Screen methodOrdered By: Jose Martin Nieves on 10-23-2023 Opiates Screen Ql (U) Negative Negative [facility] Phencyclidine Screen Ql (U)O rdered By: Jose Martin Nieves on 10-23-2023 Phencyclidine Ql (U) Negative Negative [facility] XR hip LT 1Von 10-23-2023 XR hip LT 1V [facility] [address] XRay Report Signed Patient: Nadya Kuhn MR#: [id number] 1147 : 1955 Acct:[id number] Age/Sex: 68 / F ADM Date: 10/23/23 Loc: [place] Room: Type: [facility] Attending Dr: Luis Carlton II, MD [...] Mariel Melchor M.D.10/23/2023 3:37 PM Dictation Location: RADIO-PC-12 Transcribed By: EVERARDO 10/23/23 1537 Dictated By: Mariel Melchor MD 10/23/231533 Signed By: 10/23/23 153 Normal [facility] XR low pelvis w/LT x-table h ipon 10-23-2023 XR low pelvis w/LT x-table hip [facility] [place] [address] [place] [address] XRay Report Signed Patient: Nadya Kuhn MR#: [id number] 1147 : 1955 Acct:[id number] Age/Sex: 68 / F ADM Date: 10/23/23 Loc: [place] Room: Type: [facility] Attending Dr: Luis Carlton II, MD [...] Jr., D.OAnna Marie10/23/2023 1:26 PM Dictation Location: RADIO-PC-15 Transcribed By: EVERARDO 10/23/23 1326 Dictated By: Nilo Hightower Jr, DO 10/23/23 1325 Signed By: 10/23/23 1326 Normal [facility] Anisocytosis [Presence] in B lood by Light microscopyOrdered By: Luis Carlton on 10-10-2023 Anisocytosis Ql (Bld) Slight Normal [facility] Comment on above: Performed By: #### B MP, SCAN CBC ####[facility] [address]#### FRUC ####[facility] , Automated basophil %Ordered By: Luis Carlton on 10-10-2023 Basophils/100 WBC (Bld) 0.6 % Normal . [facility] Comment on above: Performed By: #### B MP, SCAN CBC ####[address]#### FRUC ####[facility] , Automated basophil countOrde red By: Luis Carlton on 10-10-2023 Basophils (Bld) [#/Vol] 0.0 10*3/uL Normal 0.0-0.2 [facility] Comment on above: Performed By: #### B MP, SCAN CBC ####[address]#### FRUC ####[facility] , Automated blood monocyte cou ntOrdered By: Luis Carlton on 10-10-2023 Monocytes (Bld) [#/Vol] 0.4 10*3/uL Normal 0.0-0.8 [facility] Comment on above: Performed By: #### B MP, SCAN CBC ####[place] [address] [place]#### FRUC ####[facility] , Automated eosinophil %Ordere d By: Luis Carlton on 10-10-2023 Eosinophils/100 WBC (Bld) 1.5 % Normal . [facility] Comment on above: Performed By: #### B MP, SCAN CBC ####[place] [address] [place]#### FRUC ####[facility] , Automated eosinophil countOr dered By: Luis Carlton on 10-10-2023 Eosinophils (Bld) [#/Vol] 0.1 10*3/uL Normal 0.0-0.45 [facility] Comment on above: Performed By: #### B MP, SCAN CBC ####[place] [id number] [place]#### FRUC ####[facility] , Automated erythrocytes count in urine sediment (number/area)Ordered By: Luis Carlton on 10-10-2023 RBC Auto (Urine sed) [#/Area] 0-1 [HPF] 0-4 [facility] Automated leukocytes count i n urine sediment (number/area)Ordered By: Luis Carlton on 10-10-2023 WBC Auto (Urine sed) [#/Area] 3-4 [HPF] 0-4 [facility] Automated monocyte %Ordered By: Luis Carlton on 10-10-2023 Monocytes/100 WBC (Bld) 6.3 % Normal . [facility] Comment on above: Performed By: #### B MP, SCAN CBC ####[facility] [place] [address]#### FRUC ####[facility] , Automated neutrophil %Ordere d By: Luis Carlton on 10-10-2023 Neutrophils/100 WBC (Bld) 59.1 % Normal . [facility] Comment on above: Performed By: #### B MP, SCAN CBC ####[address]#### FRUC ####[facility] , Automated urine color determ inationOrdered By: Luis Carlton on 10-10-2023 Color (U) Yellow Normal Yellow [facility] Comment on above: Order Comment: Name Collection Type:: Clean-Voided Midstream Performed By: #### A DDONUAPLUS #### [facility] [address] Basic Metabolic Panelon 09-28 GFR/1.73 sq M.predicted MDRD (S/P/Bld) [Vol rate/Area] mL/min/{1.73_m2} Normal [facility] Comment on above: Performed By: #### B MP, SCAN CBC ####[address]#### FRUC ####[facility] , Bilirubin Test strip Ql (U)O rdered By: Luis Carlton on 10-10-2023 Bilirubin Ql (U) Negative Negative [facility] Calcium [Mass/volume] in Ser um or PlasmaOrdered By: Luis Carlton on 10-10-2023 Calcium [Mass/Vol] 10.0 mg/dL Normal 8.6-10.3 [facility] Comment on above: Result Comment: PERF ORMED BY: [facility] [address] [place] [address] PATHOLOGIST COMMERCIAL PEST CONTROL REPRESENTATIVE SAMANTHA PEREZ M.D. Performed By: #### B MP, SCAN CBC ####[address]#### FRUC ####[facility] , Carbon dioxide, total [Moles /volume] in Serum or PlasmaOrdered By: Luis Carlton on 10-10-2023 CO2 [Moles/Vol] 26.0 mmol/L Normal 21.0-31.0 [facility] Comment on above: Performed By: #### B MP, SCAN CBC ####[address]#### FRUC ####[facility] , Chloride [Moles/volume] in S leann or PlasmaOrdered By: Luis Cralton on 10-10-2023 Chloride [Moles/Vol] 105 mmol/L Normal 98-107 [facility] Comment on above: Performed By: #### B MP, SCAN CBC ####[place] [address] [place] [address] [place]#### FRUC ####[facility] , Creatinine [Mass/volume] in Serum or PlasmaOrdered By: Luis Carlton on 10-10-2023 Creatinine [Mass/Vol] 0.65 mg/dL Normal 0.60-1.20 [facility] Comment on above: Performed By: #### B MP, SCAN CBC ####[facility]#### FRUC ####[facility] , Dipstick and Microscopicon 0 10-10-2023 Appearance (U) Clear Normal Clear [facility] Comment on above: Order Comment: Name Collection Type:: Clean-Voided Midstream Performed By: #### A DDONUAPLUS #### [address] Bacteria,Urine None Seen Normal None Seen [facility] Comment on above: Order Comment: Name Collection Type:: Clean-Voided Midstream Performed By: #### A DDONUAPLUS #### [address] Bilirubin,Urine Negative Normal Negative [facility] Comment on above: Order Comment: Name Collection Type:: Clean-Voided Midstream Performed By: #### A DDONUAPLUS #### [address] Glucose Ql (U) Normal Normal Normal [facility] Comment on above: Order Comment: Name Collection Type:: Clean-Voided Midstream Performed By: #### A DDONUAPLUS #### [address] Hyaline Casts,Urine 0-8 Normal 0-8 [facility] Comment on above: Order Comment: Name Collection Type:: Clean-Voided Midstream Result Comment: PERF ORMED BY: [place] [address] PATHOLOGIST COMMERCIAL PEST CONTROL REPRESENTATIVE SAMANTHA PEREZ M.D. Performed By: #### A DDONUAPLUS #### [address] Ketones Ql (U) Negative Normal Negative [facility] Comment on above: Order Comment: Name Collection Type:: Clean-Voided Midstream Performed By: #### A DDONUAPLUS #### [address] Leukocyte esterase Test strip Ql (U) 2+ High Negative [facility] Comment on above: Order Comment: Name Collection Type:: Clean-Voided Midstream Performed By: #### A DDONUAPLUS #### [place] [address] [place] Nitrite,Urine Negative Normal Negative [facility] Comment on above: Order Comment: Name Collection Type:: Clean-Voided Midstream Performed By: #### A DDONUAPLUS #### [address] Occult Blood,Urine Negative Normal Negative [facility] Comment on above: Order Comment: Name Collection Type:: Clean-Voided Midstream Result Comment: PERF ORMED BY: [place] [address] PATHOLOGIST COMMERCIAL PEST CONTROL REPRESENTATIVE SAMANTHA PEREZ M.D. Performed By: #### A DDONUAPLUS #### [address] Protein,Urine Negative Normal Negative [facility] Comment on above: Order Comment: Name Collection Type:: Clean-Voided Midstream Performed By: #### A DDONUAPLUS #### [address] RBC LM.HPF (Urine sed) [#/Area] 0 /[HPF] Normal 0-4 [facility] Comment on above: Order Comment: Name Collection Type:: Clean-Voided Midstream Performed By: #### A DDONUAPLUS #### [address] Specificy [place],Urine 1.012 Normal 1.001-1.03 0 [facility] Comment on above: Order Comment: Name Collection Type:: Clean-Voided Midstream Performed By: #### A DDONUAPLUS #### [address] Squamous Epithelial Cell,Urine 0-1 Normal 0-2 [facility] Comment on above: Order Comment: Name Collection Type:: Clean-Voided Midstream Performed By: #### A DDONUAPLUS #### [address] [place] [address] [place] Urobilinogen,Urine Normal Normal Normal [facility] Comment on above: Order Comment: Name Collection Type:: Clean-Voided Midstream Performed By: #### A DDONUAPLUS #### [facility] [address] [place] [address] WBC,Urine 3-4 Normal 0-4 [facility] Comment on above: Order Comment: Name Collection Type:: Clean-Voided Midstream Performed By: #### A DDONUAPLUS #### [facility] [address] [place] [address] ECG 12 lead ECGon 10-10-2023 ECG 12 lead ECG [facility] Main [place] [address] [place] [address] Electrocardiograph Report Signed Patient: Nadya Kuhn MR#: [id number] 1147 : 1955 Acct:[id number] Age/Sex: 68 / F ADM Date: 10/10/23 Loc: Room: Type: [facility] Attending Dr: Luis Carlton II, MD Ordering [...] Electronically Signed By:LORI NUÑEZ MD Transcribed By: GONZALO Signed By Lori Nuñez MD 0 10/10/23 1739 Normal [facility] Erythrocyte distribution wid th [Ratio] by Automated countOrdered By: Luis Carlton on 10-10-2023 Erythrocyte distribution width (RBC) [Ratio] 14.3 % Normal 11.9-15.3 [facility] Comment on above: Performed By: #### B MP, SCAN CBC ####[place] [address] [place] [address] [place]#### FRUC ####[facility] , Erythrocytes [#/volume] in B lood by Automated countOrdered By: Luis Carlton on 10-10-2023 RBC (Bld) [#/Vol] 4.29 10*6/uL Normal 3.60-5.00 [facility] Comment on above: Performed By: #### B MP, SCAN CBC ####[place] [address] [place] [address] [place]#### FRUC ####[facility] , Fructosamineon 10-10-2023 Fructosamine 213 umol/L Normal 0-[address] [facility] Comment on above: Result Comment: Publ ished reference interval for apparently healthy subjects between age 20 and 60 is 205 - 285 umol/L and in a poorly controlled diabetic population is 228 - 563 umol/L with a mean of 396 umol/L. Performed at: [facility] [address] [id number] Sourcing Assistant: Zia Rome PhD, Phone: [phone] PERFORMED BY: [facility] [address] [place] [address] PATHOLOGIST [employer]ERCIAL PEST CONTROL REPRESENTATIVE SAMANTHA PEREZ M.D. Performed By: #### B MP, SCAN CBC ####[address] [place] [address] [place]#### FRUC ####[facility] , Fructosamine [Moles/volume] in Serum or PlasmaOrdered By: Luis Carlton on 10-10-2023 Fructosamine [Moles/Vol] 213 umol/L 0-285 [facility] Comment on above: Published reference interval for apparently healthysubjects between age 20 and 60 is 205 - 285 umol/L and in apoorly controlled diabetic population is 228 - 563 umol/Lwith a mean of 396 umol/L.Performed at: [facility] [address] [place], [place] [id number] Director: Zia Rome PhD, Phone: [phone] Glucose [Mass/volume] in Ser um or PlasmaOrdered By: Luis Carlton on 10-10-2023 Glucose [Mass/Vol] 73 mg/dL Normal 70-100 [facility] Comment on above: ADA recommended refe rence rangeRandom Glucose Reference Range is dependent on time and content of last meal. Glucose of more than 200 mg/dL in a nonstressed, ambulatory subject supports the diagnosis of Diabetes Mellitus. Result Comment: [place] om Glucose Reference Range is dependent on time and content of last meal. Glucose of more than 200 mg/dL in a nonstressed, ambulatory subject supports the diagnosis of Diabetes Mellitus. ADA recommended reference range Performed By: #### B MP, SCAN CBC ####[facility] [place] [address]#### FRUC ####[facility] , Hematocrit [Volume Fraction] of Blood by Automated countOrdered By: Luis Carlton on 10-10-2023 Hematocrit (Bld) [Volume fraction] 39.9 % Normal 34.0-46.4 [facility] Comment on above: Performed By: #### B MP, SCAN CBC ####[facility]#### FRUC ####[facility] , Hemoglobin [Mass/volume] in BloodOrdered By: Luis Carlton on 10-10-2023 Hemoglobin (Bld) [Mass/Vol] 13.3 g/dL Normal 11.8-15.4 [facility] Comment on above: Performed By: #### B MP, SCAN CBC ####[address] [place] [address] [place]#### FRUC ####[facility] , Ketones Auto test strip (U) [Mass/Vol]Ordered By: Luis Carlton on 10-10-2023 Ketones (U) [Mass/Vol] Negative Negative [facility] - UrinalysisOrder ed By: Luis Carlton on 10-10-2023 Hyaline casts LM Ql (Urine sed) 0-8 [LPF] 0-8 [facility] Leukocytes [#/volume] correc stefani for nucleated erythrocytes in Blood by Automated counOrdered By: Luis Carlton on 10-10-2023 WBC corrected for nucl RBC Auto (Bld) [#/Vol] 6.1 10*3/uL 3.8-11.6 [facility] Leukocytes [#/volume] in Blo od by Automated countOrdered By: Luis Carlton on 10-10-2023 WBC (Bld) [#/Vol] 6.1 10*3/uL Normal 3.8-11.6 [facility] Comment on above: Performed By: #### B MP, SCAN CBC ####[place] [address] [place]#### FRUC ####[facility] , Lymphocytes [#/volume] in Bl ood by Automated countOrdered By: Luis Carlton on 10-10-2023 Lymphocytes (Bld) [#/Vol] 2.0 10*3/uL Normal 1.00-4.8 [facility] Comment on above: Performed By: #### B MP, SCAN CBC ####[address] [place] [address] [place]#### FRUC ####[facility] , Lymphocytes/100 leukocytes i n Blood by Automated countOrdered By: Luis Carlton on 10-10-2023 Lymphocytes/100 WBC (Bld) 32.5 % Normal . [facility] Comment on above: Performed By: #### B MP, SCAN CBC ####[address] [place] [address] [place]#### FRUC ####[facility] , MCH [Entitic mass] by Automa stefani countOrdered By: Luis Carlton on 10-10-2023 MCH (RBC) [Entitic mass] 30.9 pg Normal 24.7-34.3 [facility] Comment on above: Performed By: #### B MP, SCAN CBC ####[facility] [place] [address] [place]#### FRUC ####[facility] , MCHC Auto (RBC) [Mass/Vol]Or dered By: Luis Carlton on 10-10-2023 MCHC (RBC) [Mass/Vol] 33.3 g/dL 32.0-35.0 [facility] MCV [Entitic volume] by Auto mated countOrdered By: Luis Carlton on 10-10-2023 MCV (RBC) [Entitic vol] 92.9 fL Normal 80-100 [facility] Comment on above: Performed By: #### B MP, SCAN CBC ####[place] [address]#### FRUC ####[facility] , Microcytes LM Ql (Bld)Ordere d By: Luis Carlton on 10-10-2023 Microcytes Ql (Bld) Slight [facility] Neutrophils [#/volume] in Bl ood by Automated countOrdered By: Luis Carlton on 10-10-2023 Neutrophils (Bld) [#/Vol] 3.6 10*3/uL Normal 1.8-7.7 [facility] Comment on above: Performed By: #### B MP, SCAN CBC ####[address] [place] [address] [place]#### FRUC ####[facility] , Nitrite Test strip Ql (U)Ord ered By: Luis Carlton on 10-10-2023 Nitrite Ql (U) Negative Negative [facility] No Panel InformationOrdered By: Luis Carlton on 10-10-2023 Estimated GFR (CKD-EPI) > 60.0 mL/Min [facility] Creatinine Clearance (Chem N/A [facility] Nucleated erythrocytes [Pres ence] in Blood by Automated countOrdered By: Luis Carlton on 10-10-2023 Nucleated RBC Auto Ql (Bld) 0.1 /100{WBC} 0-0.5 [facility] PST Type and Screenon 2023 ABO and Rh group Nom (Bld) Blood group AB Rh(D) positive Normal [facility] Comment on above: Order Comment: Date of Surgery: 20231023 Result Comment: PERF ORMED BY: [facility] [address] [place] [address] PATHOLOGIST COMMERCIAL PEST CONTROL REPRESENTATIVE SAMANTHA PEREZ M.D. Platelet adequacy [Presence] in Blood by Light microscopyOrdered By: Luis Carlton on 10-10-2023 Platelets LM Ql (Bld) Normal Normal [facility] Platelet mean volume [Entiti c volume] in Blood by Automated countOrdered By: Luis Carlton on 10-10-2023 Platelet mean volume (Bld) [Entitic vol] 10.3 fL Normal 6.3-10.7 [facility] Comment on above: Performed By: #### B MP, SCAN CBC ####[place]#### FRUC ####[facility] , Platelet morphology finding [Identifier] in BloodOrdered By: Luis Carlton on 10-10-2023 Platelet morphology finding Nom (Bld) Normal Normal [facility] Platelets [#/volume] in Bloo d by Automated countOrdered By: Luis Carlton on 10-10-2023 Platelets (Bld) [#/Vol] 234 10*3/uL Normal 150-450 [facility] Comment on above: Performed By: #### B MP, SCAN CBC ####[address] [place] [address] [place]#### FRUC ####[facility] , Potassium [Moles/volume] in Serum or PlasmaOrdered By: Luis Carlton on 10-10-2023 Potassium [Moles/Vol] 4.2 mmol/L Normal 3.5-5.1 [facility] Comment on above: Performed By: #### B MP, SCAN CBC ####[place] [address] [place]#### FRUC ####[facility] , Protein Auto test strip (U) [Mass/Vol]Ordered By: Luis Carlton on 10-10-2023 Protein (U) [Mass/Vol] Negative Negative [facility] RBC morphologyOrdered By: Guillermina Carlton on 10-10-2023 RBC morphology finding Nom (Bld) N/A [facility] Scan and CBCon 10-10-2023 Mean Corpuscular HGB Conc 33.3 g/dL Normal 32.0-35.0 [facility] Comment on above: Performed By: #### B MP, SCAN CBC ####[place]#### FRUC ####[facility] , Microcytosis Slight Normal [facility] Comment on above: Performed By: #### B MP, SCAN CBC ####[place] [address] [place]#### FRUC ####[facility] , NRBC% 0.1 /100{WBC} Normal 0-0.5 [facility] Comment on above: Performed By: #### B MP, SCAN CBC ####[place]#### FRUC ####[facility] , Platelet Estimate Normal Normal Normal [facility] Comment on above: Performed By: #### B MP, SCAN CBC ####[place] [address] [place]#### FRUC ####[facility] , Platelet Morphology Normal Normal Normal [facility] Comment on above: Result Comment: PERF ORMED BY: [facility] [address] [place] [place] [address] PATHOLOGIST COMMERCIAL PEST CONTROL REPRESENTATIVE SAMANTHA PEREZ M.D. Performed By: #### B MP, SCAN CBC ####[place] [address] [place]#### FRUC ####[facility] , Serum or plasma anion gap de terminationOrdered By: Luis Carlton on 10-10-2023 Anion gap [Moles/Vol] 13.2 mmol/L Normal 6.0-15.0 [facility] Comment on above: Performed By: #### B MP, SCAN CBC ####[facility] [place] [address] [place]#### FRUC ####[facility] , Sodium [Moles/volume] in Ser um or PlasmaOrdered By: Luis Carlton on 10-10-2023 Sodium [Moles/Vol] 140 mmol/L Normal 136-145 [facility] Comment on above: Performed By: #### B MP, SCAN CBC ####[facility]#### FRUC ####[facility] , Specific gravity Auto test s trip (U) [Rel density]Ordered By: Luis Carlton on 10-10-2023 Specific gravity (U) [Rel density] 1.012 1.001-1.03 0 [facility] Squamous epithelial cells de tection in urine sediment by light microscopyOrdered By: Luis Carlton on 10-10-2023 Epithelial cells.squamous LM Ql (Urine sed) 0-1 [HPF] 0-2 [facility] Urea nitrogen [Mass/volume] in Serum or PlasmaOrdered By: Luis Carlton on 10-10-2023 Urea nitrogen [Mass/Vol] 14 mg/dL Normal 7-25 [facility] Comment on above: Performed By: #### B MP, SCAN CBC ####[facility] [place] [address] [place]#### FRUC ####[facility] , Urine bacteria detection by automated methodOrdered By: Luis Carlton on 10-10-2023 Bacteria Auto Ql (U) None seen None Seen [facility] Urine clarity by refractomet ry automatedOrdered By: Luis Carlton on 10-10-2023 Clarity Refractometry automated (U) Clear Clear [facility] Urine glucose measurement by automated test strip (mass/volume)Ordered By: Luis Carlton on 10-10-2023 Glucose Auto test strip (U) [Mass/Vol] Normal mg/dL Normal [facility] Urine hemoglobin detection b y automated test stripOrdered By: Luis Carlton on 10-10-2023 Hemoglobin Auto test strip Ql (U) Negative Negative [facility] Urine leukocyte esterase det ection by automated test stripOrdered By: Luis Carlton on 10-10-2023 Leukocyte esterase Auto test strip Ql (U) 2+ Negative [facility] Urine pH measurement by auto mated test stripOrdered By: Luis Carlton on 10-10-2023 pH (U) 5.5 [pH] Normal 5.0-9.0 [facility] Comment on above: Order Comment: Name Collection Type:: Clean-Voided Midstream Performed By: #### A DDONUAPLUS #### [facility] [address] [place] [address] Urobilinogen Auto test strip (U) [Mass/Vol]Ordered By: Luis Carlton on 10-10-2023 Urobilinogen (U) [Mass/Vol] Normal mg/dL Normal [facility] A1C with Estimated Average G luon 09-26-2023 Glucose [Mass/Vol] 105 mg/dL Normal [facility] Comment on above: Order Comment: Reaso n for Exam Obesity, morbid, BMI 50 or higher;Age-related osteoporosis w Result Comment: PERF ORMED BY: [address] [address] PATHOLOGIST COMMERCIAL PEST CONTROL REPRESENTATIVE SAMANTHA PEREZ M.D. Performed By: #### A LB, CUMRSA, A1C WTH eA, HGB, [id number] #### [facility] [address] [place] [address] #### NICOTINE #### [facility] , Albumin Levelon 09-26-2023 Albumin [Mass/Vol] 4.5 g/dL Normal 3.5-5.7 [facility] Comment on above: Order Comment: Reaso n for Exam Obesity, morbid, BMI 50 or higher;Age-related osteoporosis w Performed By: #### A LB, CUMRSA, A1C WTH eA, HGB, [id number] #### [facility] [address] #### NICOTINE #### [facility] , Albumin [Mass/volume] in Ser um or Plasma by Bromocresol green (BCG) dye binding methoOrdered By: Luis Carlton on 09-26-2023 Albumin BCG dye [Mass/Vol] 4.5 g/dL 3.5-5.7 [facility] Cotinine [Mass/volume] in Se rum or PlasmaOrdered By: Luis Carlton on 09-26-2023 Cotinine [Mass/Vol] <1.0 ng/mL . [facility] Comment on above: This test was develo ped and its performance characteristicsdetermined by [facility]. It has not been cleared orapproved by the Food and Drug Administration.Cotinine levels greater than 20.0 are consistent with theuse of tobacco or tobacco cessation products.Performed at: [facility] [id number] Director: Vania Mendoza MD, Phone: [phone] Glucose mean value [Mass/vol ume] in Blood Estimated from glycated hemoglobinOrdered By: Luis Carlton on 09-26-2023 Average glucose Estimated from glycated hemoglobin (Bld) [Mass/Vol] 105 mg/dL [facility] Hemoglobin A1c percentageOrd ered By: Luis Carlton on 09-26-2023 HbA1c (Bld) [Mass fraction] 5.3 % Normal 4.3-5.6 [facility] Comment on above: Increased risk for d iabetes: 5.7 - 6.4diabetes: >6.4glycemic control for adults with diabetes: <7.0 Order Comment: Reaso n for Exam Obesity, morbid, BMI 50 or higher;Age-related osteoporosis w Result Comment: Incr eased risk for diabetes: 5.7 - 6.4 diabetes: >6.4 glycemic control for adults with diabetes: <7.0 Performed By: #### A LB, CUMRSA, A1C WTH eA, HGB, [id number] #### [facility] [address] [place] [address] #### NICOTINE #### [facility] , Hemoglobin [Mass/volume] in BloodOrdered By: Luis Carlton on 09-26-2023 Hemoglobin (Bld) [Mass/Vol] 13.1 g/dL Normal 11.8-15.4 [facility] Comment on above: Order Comment: Reaso n for Exam Obesity, morbid, BMI 50 or higher;Age-related osteoporosis w Result Comment: PERF ORMED BY: [place] [address] PATHOLOGIST COMMERCIAL PEST CONTROL REPRESENTATIVE SAMANTHA PEREZ M.D. Performed By: #### A LB, CUMRSA, A1C WTH eA, HGB, [id number] #### [facility] [address] [place] [address] #### NICOTINE #### [facility] , MRSA Cultureon 09-26-2023 MRSA Culture Reason for Exam Obes ity, morbid, BMI 50 or higher;Age-related osteoporosis w Nasal Reason for Exam: Obesity, morbid, BMI 50 or higher;Age-related osteoporosis w : Nasal MRSA Culture Results No MRSA Isolated 2 Days PERFORMED BY: [place] [address] PATHOLOGIST COMMERCIAL PEST CONTROL REPRESENTATIVE SAMANTHA PEREZ M.D. Normal [facility] Comment on above: Performed By: #### A LB, CUMRSA, A1C WTH eA, HGB, [id number] #### [address] #### NICOTINE #### [facility] , Nicotine [Mass/volume] in Se rum or PlasmaOrdered By: Luis Carlton on 09-26-2023 Nicotine [Mass/Vol] <1.0 ng/mL . [facility] Comment on above: This test was develo ped and its performance characteristicsdetermined by [facility]. It has not been cleared orapproved by the Food and Drug Administration.Nicotine levels greater than 2.0 are consistent with theuse of tobacco or tobacco cessation products. Nicotine/Cotinine Bloodon Cotinine, Blood <1.0 Normal . [facility] Comment on above: Order [...] tobacco or tobacco cessation products. Performed at: [facility] [id number] Sourcing Assistant: Vania Mendoza MD, Phone: [phone] PERFORMED BY: [place] [address] PATHOLOGIST COMMERCIAL PEST CONTROL REPRESENTATIVE SAMANTHA PEREZ M.D. Performed By: #### A LB, CUMRSA, A1C WTH eA, HGB, [id number] #### [address] #### NICOTINE #### [facility] , Nicotine, Blood <1.0 Normal . [facility] Comment on above: Order [...] A LB, CUMRSA, A1C WTH eA, HGB, [id number] #### [place] [address] [place] #### NICOTINE #### [facility] , Vitamin D 25 Hydroxy Totalon 09-26-2023 Vitamin D 25 Hydroxy Total 20.9 ng/mL Low 30-100 [facility] Comment on above: Order Comment: [...] practice guideline. JCEM. 2010; 96(7):1911-30. PERFORMED BY: [place] [address] PATHOLOGIST COMMERCIAL PEST CONTROL REPRESENTATIVE SAMANTHA PEREZ M.D. Performed By: #### A LB, CUMRSA, A1C WTH eA, HGB, [id number] #### [address] #### NICOTINE #### [facility] , Vitamin D+Metabolites [Mass/ volume] in Serum or PlasmaOrdered By: Luis Carlton on 09-26-2023 Vitamin D+Metabolites [Mass/Vol] 20.9 ng/mL 30-100 [facility] Comment on above: VITAMIN D STATUS 25( [place])VITAMIN D RANGE (ng/mL) Deficient <20 Insufficient 20 to <30Sufficient 30 to 100Reference: Brittnee Beltrán, Alana ATKINSON, et al. Evaluation,treatment, and prevention of vitamin D deficiency; an Endocrine Society clinical practice guideline. JCEM. 2010; 96(7):1911-30. Wound methicillin resistant Staphylococcus aureus (MRSA) cultureOrdered By: Luis Carlton on 09-26-2023 MRSA isol Org specific cx Ql (Unsp spec) [facility] XR shoulder LT min 2V*on XR shoulder LT min 2V* [facility] [address] [place] [address] [place] [address] XRay Report Signed Patient: Nadya Kuhn MR#: [id number] : 1955 Acct:[id number] Age/Sex: 68 / F ADM Date: 07/13/23 Loc: [facility] Room: Type: [facility] Attending Dr: Luis Carlton II, [...] Luis King M.D.07/13/2023 2:02 PM Dictation Location: [place] [address] Transcribed By: [facility] 07/13/23 140 Dictated By: Angel Luis King DO 07/13/231400 Signed By: 07/13/23 140 Normal [facility] XR shoulder LT min 2V* [facility] [employer] Other XR shoulder LT min 2V* [facility] [employer] Other XR shoulder LT min 2V* [address] [place] [address] [facility] Other XR shoulder LT min 2V* [place] [address] [facility] Other XR shoulder LT min 2V* XRay Report [facility] Other XR shoulder LT min 2V* Signed [facility] Other XR shoulder LT min 2V* Patient: Nadya Kuhn MR#: [id number] [facility] Other XR shoulder LT min 2V* 1147 [facility] Other XR shoulder LT min 2V* : 1955 Acct:[id number] [facility] Other XR shoulder LT min 2V* Age/Sex: 68 / F ADM Date: 07/13/23 [facility] Other XR shoulder LT min 2V* Loc: [facility] Room: Type: [facility] Other XR shoulder LT min 2V* Attending Dr: Luis Carlton II, MD [facility] Other XR shoulder LT min 2V* Copies to: Luis Carlton MD [facility] Other XR shoulder LT min 2V* Ordering Provider: Luis Carlton MD [facility] Other XR shoulder LT min 2V* Date of Service: 07/13/23 [facility] Other XR shoulder LT min 2V* XR/XR shoulder LT min 2V*: PAIN [facility] Other XR shoulder LT min 2V* 3 views LEFT shoulder plain film [facility] Other XR shoulder LT min 2V* HISTORY: Generalized LEFT shoulder pain for weeks [facility] Other XR shoulder LT min 2V* COMPARISON: None [facility] Other XR shoulder LT min 2V* ACUTE FINDINGS: None [facility] Other XR shoulder LT min 2V* DEGENERATIVE CHANGE: Spurring of acromioclavicular joint and glenohumeral joint. Adequate joint [facility] Other XR shoulder LT min 2V* space. [facility] Other XR shoulder LT min 2V* SOFT TISSUE FINDINGS: Unremarkable [facility] Other XR shoulder LT min 2V* JOINT EFFUSION: None [facility] Other XR shoulder LT min 2V* POSTOP CHANGES: None [facility] Other XR shoulder LT min 2V* BONY MINERALIZATION: Adequate [facility] Other XR shoulder LT min 2V* XR/XR shoulder LT min 2V* [facility] Other XR shoulder LT min 2V* IMPRESSION: Degenerative change. [facility] Other XR shoulder LT min 2V* Impression dictated by: Angel Luis King M.D.07/13/2023 2:02 PM [facility] Other XR shoulder LT min 2V* Dictation Location: [place] [address] [facility] Other XR shoulder LT min 2V* Transcribed By: [facility] 07/13/23 1402 [facility] Other XR shoulder LT min 2V* Dictated By: Angel Luis King DO 07/13/23 1401 [facility] Other XR shoulder LT min 2V* Signed By: [facility] Other XR shoulder LT min 2V* 07/13/23 [facility] Other XR hip LT min 2V(w/wo pelvis )*on 05-12-2023 XR hip LT min 2V(w/wo pelvis)* [facility] [place] [address] [place] [address] XRay Report Signed Patient: Nadya Kuhn MR#: [id number] : 1955 Acct:[id number] Age/Sex: 68 / F ADM Date: 05/12/23 Loc: [facility] Room: Type: [facility] Attending Dr: Luis Carlton II, MD Copies to: Luis Carlton MD Ordering Provider: Luis Carlton MD Date of Service: 05/12/23 XR/XR hip LT min 2V(w/wo pelvis)*: PAIN ([id number]) XR/XR knee LT 4V*: PAIN CLINICAL DATA: [...] Mariel Melchor M.D.05/12/2023 2:13 PM Dictation Location: [place] [address] Transcribed By: [facility] 05/12/23 1413 Dictated By: Mariel Melchor MD 05/12/23 1408 Signed By: 05/12/23 1413 Normal [facility] LIPID PROFILEon 10-27-2022 CHOL-HDL RATIO NORM SEE BELOW Normal [facility] Comment on above: Result Comment: 3.3 - 4.4 LOW RISK 4.4 - 7.1 AVERAGE RISK 7.1 - 11.0 MODERATE RISK >11.0 HIGH RISK Performed By: #### L IPID, LIVER #### [facility] [address] [place] [address] [address] Favio Cueto Cholesterol [Mass/Vol] 168 mg/dL Normal <=200 [facility] Comment on above: Performed By: #### L IPID, LIVER #### [facility] [address] [place] [address] [address] Favio Cueto Cholesterol in HDL [Mass/Vol] 61 mg/dL Critically high 40-60 [facility] Comment on above: Performed By: #### L IPID, LIVER #### [facility] [address] [place] [address] [address] Favio Cueto Cholesterol in LDL [Mass/Vol] 91.4 mg/dL Normal [facility] Comment on above: Performed By: #### L IPID, LIVER #### [facility] [address] [place] [address] [address] Favio Cueto Cholesterol.total/Cho lesterol in HDL [Mass ratio] 2.8 {ratio} Normal [facility] Comment on above: Performed By: #### L IPID, LIVER #### [facility] [address] [place] [address] [address] Favio Cueto HDL NORMAL > or = 60 mg/dl - LO W CARDIOVASCULAR RISK <40 mg/dl - HIGH CARDIOVASCULAR RISK Normal [facility] Comment on above: Performed By: #### L IPID, LIVER #### [facility] [address] [place] [address] Dr. Favio Cueto LDL CALC NORMAL SEE BELOW Normal [facility] Comment on above: Result Comment: <100 mg/dl OPTIMAL 100 - 129 mg/dl NEAR OR ABOVE OPTIMAL 130 - 159 mg/dl BORDERLINE HIGH 160 - 189 mg/dl HIGH >190 mg/dl VERY HIGH Performed By: #### L IPID, LIVER #### [facility] [address] [place] [address] Dr. Favio Cueto Triglyceride [Mass/Vol] 78 mg/dL Normal <=150 [facility] Comment on above: Performed By: #### L IPID, LIVER #### [facility] [address] [place] [address] Dr. Favio Cueto VLDL CALC 15.6 mg/dL Normal [facility] Comment on above: Performed By: #### L IPID, LIVER #### [facility] [address] [place] [address] [address] Favio Cueto LIVER PROFILEon 10-27-2022 Albumin [Mass/Vol] 4.3 g/dL Normal 3.4-5.0 [place] Comment on above: Performed By: #### L IPID, LIVER #### [facility] [address] [place] [address] Dr. Favio Cueto Albumin/Globulin [Mass ratio] 1.5 {ratio} Normal [facility] Comment on above: Performed By: #### L IPID, LIVER #### [facility] [address] [place] [address] [address] Favio Cueto ALP [Catalytic activity/Vol] 55 U/L Normal 46-116 [facility] Comment on above: Performed By: #### L IPID, LIVER #### [facility] [address] [place] [address] [address] Favio Cueto ALT [Catalytic activity/Vol] 23 U/L Normal 14-59 [facility] Comment on above: Performed By: #### L IPID, LIVER #### [facility] [address] [place] [address] [address] Favio Cueto AST [Catalytic activity/Vol] 15 U/L Normal 15-37 [facility] Comment on above: Performed By: #### L IPID, LIVER #### [facility] [address] [place] [address] [address] Favio Cueto BILI, CONJUGATED 0.2 mg/dL Normal 0.0-0.2 [facility] Comment on above: Performed By: #### L IPID, LIVER #### [facility] [address] [place] [address] [address] Favio Cueto Bilirubin [Mass/Vol] 0.7 mg/dL Normal 0.2-1.0 [facility] Comment on above: Performed By: #### L IPID, LIVER #### [place] [facility] [address] [address] [address] Favio Cueto Globulin (S) [Mass/Vol] 2.8 g/dL Normal [facility] Comment on above: Performed By: #### L IPID, LIVER #### [facility] [address] [address] [address] Favio Cueto Protein [Mass/Vol] 7.1 g/dL Normal 6.4-8.2 [place] Comment on above: Performed By: #### L IPID, LIVER #### [facility] [address] [address] [address] Favio Cueto MG MAMM SCREEN 3D ARCHIE CADon 10-27-2022 MG MAMM SCREEN 3D ARCHIE CAD Patient: NADYA KUHN Exam Date: 10/27/2022 : 1955 Gender:F Ordering : SHAIKH Rosa SANTORO . Admission #: [id number] Family : Order #: [id number] CLICK HERE TO VIEW EXAM RADIOLOGY REPORT PROCEDURE: MAMMOGRAM SCREENING 3D BILATERAL CAD COMPARISON: None. INDICATIONS: Screening mammography Calculator Name NCI Breast Cancer Risk Assessment Tool 5 Year Breast Cancer Risk 1.30% Lifetime Breast Cancer Risk 5.00% Personal Breast Cancer No Personal Ovarian Cancer No Treatments None Family Cancers None LOCATION: [facility] BREAST COMPOSITION: Heterogeneously dense,which may obscure [...] Hardy MD on 11/23/2022 at 08:22 Normal [facility] CT LUNG CANCER SCREENINGon 0 04-05-2022 [...] by: HOLLIE HARDY Date: 2022-04-05 10:37 Normal [facility] Vital Signs Date Time Vital Sign Value Performing Clinician Keri watson 10-23-2023 16:00-0400 Diastolic blood pressure 68 mm[Hg] PHYSICIAN NO [facility] 10-23-2023 16:00-0400 Heart rate 68 /min PHYSICIAN NO [facility] 10-23-2023 16:00-0400 Respiratory rate 16 /min PHYSICIAN NO [facility] 10-23-2023 16:00-0400 SaO2% (BldA) [Mass fraction] 99 % PHYSICIAN NO [facility] 10-23-2023 16:00-0400 Systolic blood pressure 120 mm[Hg] PHYSICIAN NO [facility] 10-23-2023 12:33-0400 Body temperature 98.6 [degF] PHYSICIAN NO [facility] 10-23-2023 12:33-0400 Inhaled oxygen flow rate 10 L/min PHYSICIAN NO [facility] 10-23-2023 08:59-0400 Body height 160.02 cm PHYSICIAN NO [facility] 10-23-2023 08:59-0400 Body mass index (BMI) [Ratio] 23.4 kg/m2 PHYSICIAN NO [facility] 10-23-2023 08:59-0400 Body weight 60 kg PHYSICIAN NO [facility] 10-13-2023 08:41-0400 Body height 160.02 cm PHYSICIAN NO [facility] 10-13-2023 08:41-0400 Body mass index (BMI) [Ratio] 23.6 kg/m2 PHYSICIAN NO [facility] 10-13-2023 08:41-0400 Body weight 60.32 kg PHYSICIAN NO [facility] Encounters Encounter Date Encounter Type Care Provider Facility Start: 12-27-2023 End: 12-27-2023 ambulatory SHAIKH MAUDE Not Available Start: 12-14-2023 End: 12-14-2023 ambulatory NEETA MILLER Not Available Start: 12-06-2023 End: 12-06-2023 ambulatory PHYSICIAN NO [facility] Work Phone: Start: 12-06-2023 End: 12-06-2023 Patient encounter procedure PHYSICIAN NO [facility] Work Phone: Start: 11-08-2023 End: 11-08-2023 ambulatory PHYSICIAN NO [facility] Work Phone: Start: 11-08-2023 End: 11-08-2023 Patient encounter procedure PHYSICIAN NO [facility] Work Phone: Start: 10-23-2023 End: 10-23-2023 Admission to same day surgery center PHYSICIAN NO [facility]Sur[facility] [place] Start: 10-23-2023 End: 10-23-2023 ambulatory PHYSICIAN NO [facility] Work Phone: Start: 10-23-2023 Non-patient / Non-visit PHYSICIAN NO [facility] Work Phone: Start: 10-13-2023 Registered Recurring PHYSICIAN NO [facility] C[facility]Physical Therapy [place] Start: 10-13-2023 Encounter for other preprocedural examination Luis Carlton II [facility] Start: 10-13-2023 End: 10-13-2023 ambulatory PHYSICIAN NO [facility] Work Phone: Start: 10-13-2023 End: 10-13-2023 Patient encounter procedure PHYSICIAN NO [facility] Work Phone: Start: 10-12-2023 End: 10-12-2023 ambulatory SHAIKH MAUDE Not Available Start: 10-10-2023 End: 10-10-2023 Patient encounter procedure PHYSICIAN NO [facility] Work Phone: Start: 10-10-2023 End: 10-10-2023 ambulatory Shaikh Maude Facility:[facility] Start: 10-03-2023 End: 10-03-2023 ambulatory AVILES FAWWAD Not Available Start: 09-26-2023 End: 09-26-2023 Patient encounter procedure PHYSICIAN NO [facility] Ctr-Lab [place] Work Phone: Start: 09-26-2023 End: 09-26-2023 ambulatory PHYSICIAN NO [facility] Facility:[facility] Start: 09-21-2023 End: 09-21-2023 ambulatory AVILES FAWWAD Not Available Start: 08-23-2023 End: 08-23-2023 ambulatory Luis Julian II Other [facility] Other Start: 08-23-2023 Office outpatient vi sit 40 minutes Luis Pender II [facility] Start: 08-08-2023 End: 08-08-2023 ambulatory AVILES FAWWAD Not Available Start: 07-13-2023 Office outpatient vi sit 25 minutes Luis Pender II [facility] Start: 07-13-2023 End: 07-13-2023 ambulatory Luis M Julian II [facility] Other Start: 07-10-2023 End: 07-10-2023 ambulatory Luis Julian II Other [facility] Start: 07-10-2023 Telephone encounter Luis Pender II [facility] Start: 05-12-2023 End: 05-12-2023 Patient encounter procedure MD Luis Carlton II Work Phone: [facility] Start: 05-12-2023 End: 05-12-2023 ambulatory PHYSICIAN NO [facility] C[facility] Work Phone: Start: 10-27-2022 End: 10-28-2022 ambulatory AVILES H FAWWAD Facility:[facility] Start: 04-05-2022 End: 04-06-2022 ambulatory AVILES H FAWWAD Facility:[facility] Procedures Date Procedure Procedure Detail Performing Clinician Start: 12-06-2023 Plain X-ray of left hip PHYSICIAN NO FAM[facility] Start: 10-23-2023 Plain X-ray of left hip PHYSICIAN NO FAM[facility] Start: 10-23-2023 Total replacement of left hip joint PHYSICIAN NO FAMILY Start: 10-23-2023 Plain X-ray of left hip PHYSICIAN NO FAMILY Start: 10-10-2023 Antibody screen Avilesrishi Santoro Comment on above: Order Comment: Date of Surgery: 20231023 Result Comment: PERF ORMED BY: [facility] [address] [place] [address] PATHOLOGIST [employer] PEST CONTROL REPRESENTATIVE SAMANTHA PEREZ M.D. Start: 09-26-2023 Methicillin resistan t Staphylococcus aureus culture PHYSICIAN NO FAMILY Start: 05-12-2023 Plain X-ray of left hip MD Luis Carlton II Work Phone: Start: 05-12-2023 Radiologic examinati on of knee MD Luis Carlton II Work Phone: Plan of Treatment Date Care Activity Detail Author Start: 12-06-2023 Plain X-ray of left hip XR hip LT min 2V(w/wo pelvis)* [facility] Start: 12-06-2023 XR Hip - left 2 Views F [facility] Start: 10-23-2023 End: 10-23-2023 [facility] Immunizations Immunization Date Immunization Notes Care Provider Sophia jadeem 03-07-2021 COVID-19 mRNA, Comirnaty (Pfizer) PHYSICIAN NO [facility] 02-14-2021 COVID-19 mRNA, Comirnaty (Pfizer) PHYSICIAN NO [facility] Payers Date Payer Category Payer Private Health Insurance [id number] 2023 Self-pay 2021 Medicare [id number] 1957 Medicare [id number] 1955 Unknown [id number] 2.16.84 0.1.421599.3.579.2.593 1955 Unknown [id number] 2.16.84 0.1.615725.3.579.2.593 1955 Unknown [id number] 2.16.84 0.1.688991.3.579.2.9 1955 Unknown [id number] 2.16.84 0.1.280868.3.579.2.9 1955 Unknown [id number] 2.16.84 0.1.597853.3.579.2.1258 1955 Unknown [id number] 2.16.84 0.1.930161.3.579.2.1258 1955 Unknown [id number] 2.16.84 0.1.072829.3.579.2.9 1955 Unknown [id number] 2.16.84 0.1.121102.3.579.2.1259 Unknown [id number] 2.16.8 40.1.777968.3.579.2.531 Unknown [id number] 2.16.8 40.1.520418.3.579.2.531 Unknown [id number] 2.16.8 40.1.441606.3.579.2.531 Unknown [id number] 2.16.8 40.1.069354.3.579.2.531 Unknown [id number] 2.16.8 40.1.147258.3.579.2.531 Unknown [id number] 2.16.8 40.1.633742.3.579.2.531 Unknown [id number] 2.16.8 40.1.374033.3.579.2.531 Social History Date Type Detail Facility Tobacco smoking status [facility] Unknown if ever smoked [facility] Work Phone: Start: 1955 Sex Assigned At Female [facility] Sex Assigned At Sex Assigned At [facility] Other Start: 10-10-2023 End: 10-23-2023 Tobacco smoking status VAIS Ex-smoker (finding) [facility] NEGATED: Highlighted row [facility] Medical Equipment Procedure Code Equipment Code Equipment Origin al Text Equipment Identifier Dates Arthroplasty, hip, total, anterior approach Acetabular shell [id number] FDA Start: 10-23-2023 Arthroplasty, hip, total, anterior approach Ceramic femoral head prosthesis ()[id number] FDA Start: 10-23-2023 Arthroplasty, hip, total, anterior approach Coated hip femur prosthesis, modular [id number] FDA Start: 10-23-2023 Arthroplasty, hip, total, anterior approach Non-constrained polyethylene acetabular liner ()[id number] FDA Start: 10-23-2023 Goals Date Patient Goal [...] pathological fracture (ICD-10 - M81.0) Jul, Other usp (current) drug therapy (ICD-10 - Z79.899) Jul, [...] or absent clearances could delay their surgery. [facility] Other Evaluation note 07-13-2023 Note Date & [...] both the hip and the knee being ctje-vq-phmq arthritis I still feel that the most [...] her back in 6 weeks for reevaluation. [facility] Other Evaluation note 07-10-2023 Note Date & Type Note Facility 07-10-2023 Evaluation note Encounter Date Diagnosis Assessment Notes Jun, Left hip pain (ICD-10 - M25.552) [facility] Other Evaluation note Note Date & Type Note Facility Evaluation note No assessment information availa [facility] Work Phone: Evaluation note Note Date & Type Note Facility Evaluation note Diagnosis Onset Date Primary osteoarthritis of left hip acute [facility] Work Phone: Evaluation note Note Date & Type Note Facility Evaluation note Diagnosis Onset Date Primary osteoarthritis of left hip acute Aftercare following left hip joint replacement surgery acute Presence of left artificial hip joint acute Aftercare following left hip joint replacement surgery acute Presence of left artificial hip joint acute [facility] Work Phone: Evaluation note Note Date & Type Note Facility Evaluation note Diagnosis Onset Date Aftercare following left hip joint replacement surgery acute Presence of left artificial hip joint acute Aftercare following left hip joint replacement surgery acute Presence of left artificial hip joint acute [facility] Work Phone: History general Narrative - Reported Note Date & Type Note Facility History general Narrative - Reported Type Medical History hypercholesterolemia Medical History emphysema-mild Surgical History C section x2 Surgical History tonsillectomy Surgical History RTHA Surgical History ear surgery [facility] Other Hospital Discharge instructions Note Date & Type Note Facility Hospital Discharge instructions Additional Instructions Joint Replacement Discharge Instructions Your safety during your recovery process is important to us. Please seek immediate emergency care if you have sudden chest pain or shortness of breath. Additionally, please call our office at [phone] should any of the following occur: wound [...] to walk without your walker and your child care development specialist until the therapist checks you the following [...] and/or laxatives as directed. You may take rgxg-zko-geohrbm Benadryl if itching occurs without a rash or hives. Icing and elevation will help relieve pain as well, do not underestimate the power of ice and elevation. We do recommend that you stop taking narcotic pain medications by 4-6 weeks after surgery and if necessary, continue to use anti-inflammatory medications such as Mobic (meloxicam), Celebrex (celecoxib), or an znkm-upp-scwolug medication (Aleve, Motrin, Ibuprofen, etc). Driving an [...] feel free to call our office at [phone]. You are a priority of ours and we will not be upset with you if you call. We would much rather you call to confirm aspects of your recovery process as opposed to possibly hindering your recovery with inappropriate care. We are committed to providing you with the best care possible. Luis Carlton II, MD Updated 08/21/23 [facility] Work Phone: Summary Purpose Family History No [...] surgery Presence of left artificial hip joint Chief Complaint Hip pain Hip pain 2 WK POST OP LTHA 4 WK RECHECK Z96.642 Z47.1 Reason for Visit Aftercare following left hip joint replacement surgery Presence of left artificial hip joint Aftercare following left hip joint replacement surgery Presence of left artificial hip joint Additional Source Comments INFORMATION SOURCE (unrecogn ized section and content) DATE CREATED AUTHOR 11/24/[address] [facility] pital DATE CREATED AUTHOR AUTHOR'S ORGANIZ ATION 12/28/2023 [facility] EPIC DATE CREATED AUTHOR AUTHOR'S ORGANIZ ATION 01/13/2024 [facility] Care Teams (unrecognized sec tion and content) Team Status: Active Member Role Status Dates Shaikh Maude MD Primary Care Provider Active Team Status: Active Member Role Status Dates Luis Carlton II, MD Attending Magalyi ulysses, Other Provider Active Start: October 23, [...] 2023 End: December 06, 2023 Team Status: Inactive Member Role Status Dates Luis Carlton II, MD Attending Provider Active Team Status: Inactive Member Role [...] 2023 Team Status: Active Member Role Status So Santoro MD Primary Care Provider Active Start: October 13, 2023 Luis Carlton II, MD Attending Provider Active Start: October 13, 2023 Team Status: Inactive Member Role Status So Carlton II, MD Attending Provider Active Start: October 13, 2023 End: October 13, 2023 Shaikh Maude MD Primary Care Provider Active Start: October 13, 2023 End: October 13, 2023 Team Status: Inactive Member Role Status So Santoro MD Primary Care Provider Active Start: October 13, 2023 End: October 13, 2023 Luis Carlton II, MD Attending Provider Active Start: October 13, 2023 End: October 13, 2023 Team Status: Active Member Role Status So Carlton II, MD Attending Provider Active Start: [...] BE BASED ON THE PRIMARY CLINICAL RECORDS. [facility]. provides no warranty or guarantee of the accuracy or completeness of information in this document.
[2024-01-15 08:44] LABS: Chol HDL Ratio 2.7; Cholesterol 180 mg/dL (<=200); HDL Cholesterol 67 mg/dL (40-60); Triglycerides 133 mg/dL (<=150); VLDL CHOLESTEROL 26.6 mg/dL
== END 2024-01-15 08:02 | disposition home or self-care (01) ==
LOC: LAB 08:03
PROVIDERS: PCP Internal Medicine; Visit Provider Internal Medicine
DX: E78.5 Hyperlipidemia, unspecified (principal)
CPT/HCPCS: 36415; 80061

== ENCOUNTER 2024-10-18 07:39 | Outpatient (OUT) | payer MEDICARE, SELFPAY ==
--- OUTSIDE RECORDS SUMMARY | 2024-10-18 07:43 | XMS_ITS | CCD ---
Author Organization [facility] Care Team Providers Care Event Specialist Name Role Phone FAWWAD, AVILES H Admitting Unavailable FAWWAD, AVILES H Attending Unavailable FARemyWADanna, AVILES H Primary Care Unavailable DR HOLLIE HARDY V Consulting Unavailable FAWWAD, AVILES H Consulting Unavailable FAWWAD, AVILES H Admitting Unavailable FAWWAD, AVILES H Attending Unavailable FARemyWAD, AVILES H Consulting Unavailable MD Luis Carlton II Attending Provider Luis Carlton II Unavailable NO FAMILY, PHYSICIAN Primary Care Provider Unava ilable MD Luis Carlton II Attending Provider MD Steafn Santoro Primary Care Provider MD Luis Carlton II Attending Provider MD Stefan Santoro Primary Care Provider MD Luis Carlton II Attending Provider MD Stefan Santoro Primary Care Provider MD Nazario Blue Attending Provider Monisha [employer], Trsitian Unavailable Rogelio Coleman MD Primary Care Provider Unavailable Primary Care Provider UnavailNATALIA Caballero Referring Unav ailable TRISTIAN BEARDEN Attending Unavailabl e BILLY FINCH Attending Unavailable TRISTIAN BEARDEN Referring Unavailabl e SHAIKH SANTORO Attending Unavailable SHAIKH SANTORO Attending Unavailable SHAIKH SANTORO Attending Unavailable NEETA MILLER Attending Unavailable SHAIKH SANTORO Attending Unavailable TRISTIAN BEARDEN Attending UnavailGabino Bae MD Attending Provider Maude WEBBER, Aviles Primary Care Provider [phone] [facility] Primary Care Unavailable Asaad, Imad Admitting Unavailable Asaad, Imad Attending Unavailable Maude, [facility] Primary Care Unavailable [place] II, Luis Egan Admitting Unavailabl e Brandt II, Luis Egan Attending Unavailnathan e [place] II, Luis Egan Admitting Unavailabl e Fawfranklin, [facility] Unavailable Brandt II, Luis Egan Attending Unavailnathan e Maude, [facility] Unavailable Gabino Rios Admitting Unavailable Gabriel, Gabino Attending Unavailable Brandt STEVENSON, Luis Egan Attending Unavailnathan e Maude, [facility] Unavailable [place] II, Luis Egan Admitting Unavailabl e Fawwadanna, [facility] Unavailable Brandt II, Luis Egan Admitting Unavailabl e [place] II, Luis Egan Attending UnavailGabino Bae MD Attending Provider Maude WEBBER, Primary Care Provider [phone] Unavailable [facility] Primary Care Provider [phone] Allergies Allergy Classification Reported Allergen(s) Allergy Type Date of Onset Reaction(s) Facility (1 source) ALLERGIES NOT ON FILE; Translations: [ALLERGIES NOT ON FILE] Propensity to adverse reactions (disorder) [facility] Repository (3 sources) Penicillins Drug allergy (disorder) 4 [facility] Repository (2 sources) Sulfonamides (Antibiotic) Propensity to adverse reactions to drug 5 [facility] Medications Current Medications Medication Drug Class(es) Dates Sig (Normalized) Sig (Original) atorvastatin 20 mg oral tablet (3 sources) HMG-CoA Reductase Inhibitor Atorvastatin Calcium 20 MG Oral for 90 Days Active biotin 10 mg oral capsule (5 sources) Start: 01-12-2024 take 1 capsule by mouth once daily Biotin 10,000 mcg capsule Active 62835 MCG PO Daily January 12, 2024 12:00am calcium carbonate 1500 mg / cholecalciferol 0.01 mg oral capsule (15 sources) Vitamin D Start: 10-10-2023 take 1 capsule by mouth once daily Calcium Carbonate-Vitamin D3 600 mg-10 mcg (400 unit) capsule Active 1 CAP PO Daily October 10, 2023 12:00am Start: 05-12-2023 take 1 tablet by vi th every twelve hours Calcium-Vitamin D 600-3.125 MG-MCG 1 tablet Orally Twice a day for 30 day(s) Apr, Active hydrOXYzine pamoate 25 mg oral capsule (10 sources) Antihistamine Start: 09-14-2024 Hydroxyzine Hc l 25 mg tablet Active MG PO September 14, 2024 1:00am Start: 08-29-2024 End: 09-28-2024 take 1 tablet by mouth every eight hours as needed hydrOXYzine (ATARAX) 25 mg tablet Take 1 tablet (25 mg total) by mouth every 8 (eight) hours as needed. 08/29/2024 Active magnesium oxide 400 mg oral tablet (1 source) take 1 tablet by mouth in the morning magnesium oxide (MAGOX) 400 mg tablet Take 1 tablet (400 mg total) by mouth in the morning. Active meloxicam 15 mg oral tablet (3 sources) Nonsteroidal Anti-inflammatory Drug Start: take 1 tablet by mouth every twenty-four hours Meloxicam 15 MG 1 tablet Orally Once a day for 30 days Apr, Active metoprolol tartrate 50 mg oral tablet (1 source) beta-Adrenergic Neno Start: metoprolol tartrate (LOPRESSOR) 50 mg tablet Take 1 tablet (50 mg) [address] and 1 tablet (50 mg) [address] 2 tablet 10/17/2024 Active Start: 10-17-2024 metoprolol tar trate (LOPRESSOR) 50 mg tablet Take 1 tablet (50 mg) [address] and 1 tablet (50 mg) [address] 2 tablet 10/17/2024 Active naproxen 500 mg oral tablet (16 sources) Nonsteroidal Anti-inflammatory Drug Start: 10-10-2023 take 1 tablet by mouth twice daily as needed for pain Naproxen 500 mg tablet Active 500 MG PO Twice daily as needed for pain October 10, 2023 12:00am On Hold: Resume on 11/23/23. FreeTextSig: TAKE 1 TABLET BY MOUTH 2 TIMES PER DAY NEEDED FOR PAIN Oral; Note: Source Status: Taking; Refills: 0; Qty: 180 Each; Provider: MAUDE AVILES naproxen (EC NAP ROSYN) 375 MG tablet,delayed release (DR/EC) EC tablet Take 500 mg by mouth 2 (two) times a day as needed for pain. Active take 1 tablet by vi th twice daily as needed for pain Naproxen 500 MG TAKE 1 TABLET BY MOUTH 2 TIMES PER DAY NEEDED FOR PAIN Oral for 90 Days Active rosuvastatin calcium 20 mg oral tablet (20 sources) HMG-CoA Reductase Inhibitor Start: 10-10-2023 End: 08-22-2024 take 1 tablet by mouth in the morning rosuvastatin (CRESTOR) 20 mg tablet Take 1 tablet (20 mg total) by mouth in the morning. 08/22/2024 Active traZODone hydrochloride 50 mg oral tablet (3 sources) Serotonin Reuptake Inhibitor Start: 01-22-2024 End: 07-20-2024 take 1 tablet by mouth at bedtime traZODone (Desyrel) 50 MG tablet Indications: Psychophysiological insomnia Take 1 tablet (50 mg) by mouth at bedtime 90 tablet 1 01/22/2024 06/18/2024 Discontinued (Med list cleanup) Completed/Discontinued Medications Medication Drug Class(es) Dates Sig (Normalized) Sig (Original) acetaminophen 500 mg oral tablet (12 sources) Start: 10-13-2023 End: 12-06-2023 take 2 tablets by mouth every eight hours Acetaminophen 500 mg tablet Discontinued 1000 MG PO Q8H 180 October 13, 2023 12:00am December 06, 2023 11:18am DO NOT RECONCILE UNTIL DOS:10/23/2023 MED TO BED Start: 10-13-2023 End: 12-06-2023 take 1000 mg by mouth every eight hours Acetaminophen Discontinued 1000 MG PO Q8H 180 October 13, 2023 12:00am December 06, 2023 11:18am DO NOT RECONCILE UNTIL DOS:10/23/2023 MED TO BED amoxicillin 500 mg oral tablet (3 sources) Penicillin-class Antibacterial Start: 03-14-2024 End: 09-14-2024 take 4 tablets by mouth once Amoxicillin 500 mg tablet Discontinued 2000 MG PO once 4 1 March 14, 2024 12:00am September 14, 2024 10:59am amoxicillin 875 mg / clavulanate 125 mg oral tablet (12 sources) Penicillin-class Antibacterial Start: 10-13-2023 End: 11-08-2023 Amoxicillin-Pot Clavulanate 875-125 mg tablet Discontinued TAB PO October 13, 2023 12:00am November 08, 2023 8:48am aspirin 81 mg delayed release oral tablet (12 sources) Platelet Aggregation Inhibitor, Nonsteroidal Anti-inflammatory Drug Start: 10-13-2023 End: 12-06-2023 take 1 tablet by mouth twice daily Aspirin 81 mg tablet,delayed release (DR/EC) Discontinued 81 MG PO Twice daily 70 35 October 13, 2023 12:00am December 06, 2023 11:18am DO NOT RECONCILE UNTIL DOS:10/23/2023 MED TO BED cefadroxil 500 mg oral capsule (12 sources) Cephalosporin Antibacterial Start: 10-13-2023 End: 11-08-2023 take 1 capsule by mouth every twelve hours Cefadroxil 500 mg capsule Discontinued 500 MG PO Q12H 14 7 October 13, 2023 12:00am November 08, 2023 8:48am DO NOT RECONCILE UNTIL DOS:10/23/2023 MED TO BED celecoxib 200 mg oral capsule (12 sources) Nonsteroidal Anti-inflammatory Drug Start: 10-13-2023 End: 12-06-2023 take 1 capsule by mouth twice daily Celecoxib 200 mg capsule Discontinued 200 MG PO Twice daily 60 30 October 13, 2023 12:00am December 06, 2023 11:18am DO NOT RECONCILE UNTIL DOS:10/23/2023 MED TO BED cephalexin 500 mg oral capsule (4 sources) Cephalosporin Antibacterial Start: 01-30-2024 End: 09-14-2024 take 1 capsule by mouth twice daily Cephalexin 500 mg capsule Discontinued 500 MG PO Twice daily 6 3 January 30, 2024 12:00am September 14, 2024 10:59am docusate sodium 50 mg / sennosides, fpc 8.6 mg oral tablet (12 sources) Start: 10-13-2023 End: 11-08-2023 take 2 tablets by mouth once daily Sennosides-Docusat e Sodium (Senokot-S) 8.6-50 mg tablet Discontinued 2 TAB PO daily 60 October 13, 2023 12:00am November 08, 2023 8:48am DO NOT RECONCILE UNTIL DOS:10/23/2023 MED TO BED ergocalciferol 1.25 mg oral capsule (12 sources) Provitamin D2 Compound Start: 09-28-2023 End: 01-12-2024 take 1 capsule by mouth every week Ergocalciferol (Vitamin D2) 1,250 mcg (50,000 unit) capsule Discontinued 1250 MCG PO Q7D 8 60 September 28, 2023 1:00am January 12, 2024 12:44pm ondansetron 4 mg oral tablet (12 sources) Serotonin-3 Receptor Antagonist Start: 10-13-2023 End: 11-08-2023 take 1 tablet by mouth every eight hours as needed for nausea Ondansetron Hcl 4 mg tablet Discontinued 4 MG PO Q8H as needed for Nausea 9 October 13, 2023 12:00am November 08, 2023 8:48am DO NOT RECONCILE UNTIL DOS:10/23/2023 MED TO BED oseltamivir 75 mg oral capsule (3 sources) Neuraminidase Inhibitor Start: 09-14-2024 End: 10-01-2024 take 1 capsule by mouth twice daily Oseltamivir (Tamiflu) 75 mg capsule Discontinued 75 MG PO Twice daily 10 September 14, 2024 1:00am October 01, 2024 11:42am oxyCODONE hydrochloride 5 mg oral tablet (12 sources) Opioid Agonist Start: 10-13-2023 End: 11-08-2023 take 1 tablet by mouth every four hours as needed for pain Oxycodone 5 mg tablet Discontinued 5 MG PO Q4H as needed for Pain 42 October 13, 2023 November 08, 2023 8:48am DO NOT RECONCILE UNTIL DOS:10/23/2023 MED TO BED polyethylene glycol 3350 26880 mg powder for oral solution (12 sources) Osmotic Laxative Start: 10-13-2023 End: 11-08-2023 Polyethylene Glycol 3350 (Miralax) 17 gram/dose powder Discontinued 17 GM PO daily 7 October 13, 2023 12:00am November 08, 2023 8:48am 1 packed mixed with 8 ounces of fluid. DO NOT RECONCILE UNTIL DOS:10/23/2023 MED TO BED predniSONE 20 mg oral tablet (3 sources) Start: 09-14-2024 End: 10-01-2024 take 1 tablet by mouth twice daily Prednisone 20 mg tablet Discontinued 20 MG PO Twice daily 10 5 September 14, 2024 1:00am October 01, 2024 11:42am Sod Picosulf-Mag Ox-Citric Ac (6 sources) Start: 12-18-2023 End: 10-01-2024 take 1 dose by mouth once daily Sod Picosulf-Mag Ox-Citric Ac (Clenpiq) 10 mg-3.5 gram- 12 gram/175 mL solution Discontinued 175 ML PO Daily 350 0 December 18, 2023 12:00am October 01, 2024 11:41am take first dose at 3PM evening before colonoscopy; 2nd dose at 9pm the night before colonoscopy Start: 12-18-2023 End: 10-01-2024 take 1 dose by mouth once daily Sod Picosulf-Mag Ox-Citric Ac (Clenpiq) 10 mg-3.5 gram- 12 gram/175 mL solution Discontinued 175 ML PO Daily 350 0 December 17, 2023 11:00pm October 01, 2024 10:41am take first dose at 3PM evening before colonoscopy; 2nd dose at 9pm the night before colonoscopy Start: 12-18-2023 take 1 dose by mouth once daily Sod Picosulf-Mag Ox-Citric Ac (Clenpiq) 10 mg-3.5 gram- 12 gram/175 mL solution Active 175 ML PO Daily 350 0 December 17, 2023 11:00pm take first dose at 3PM evening before colonoscopy; 2nd dose at 9pm the night before colonoscopy Start: 12-18-2023 take 1 dose by mouth once daily Sod Picosulf-Mag Ox-Citric Ac (Clenpiq) 10 mg-3.5 gram- 12 gram/175 mL solution Active 175 ML PO Daily 350 0 December 18, 2023 12:00am take first dose at 3PM evening before colonoscopy; 2nd dose at 9pm the night before colonoscopy traMADol hydrochloride 50 mg oral tablet (20 sources) Opioid Agonist Start: 10-13-2023 End: 11-08-2023 take 1 tablet by mouth every six hours as needed for pain Tramadol 50 mg tablet Discontinued 50 MG PO Q6H as needed for Pain 40 10 October 13, 2023 12:00am November 08, 2023 8:48am DO NOT RECONCILE UNTIL DOS:10/23/2023 MED TO BED Start: 10-10-2023 End: 10-23-2023 take 1 tablet by mouth once daily as needed for pain Tramadol 50 mg tablet Discontinued 50 MG PO Daily as needed for pain October 10, 2023 12:00am October 23, 2023 7:36am FreeTextSi tablet as needed Orally Once a day; Note: Source Status: Takingprn; Provider: Brandt Smith II ( ) take 1 tablet by vi th every twenty-four hours traMADol HCl 50 MG 1 tablet as needed Orally Once a day prn Active triamcinolone acetonide 40 mg/ml injectable suspension (4 sources) Corticosteroid Start: 07-13-2023 Kenalog-40 Jun, 40 mg Start: 07-13-2023 Kenalog-40 Jun, 120 mg Problems Active Problems Problem Classification Problem Date Documented Date Episodic/Chronic Acute and chronic tonsillitis (2 sources) Tonsillar tag; Translations: [Other chronic diseases of tonsils and adenoids] 09-06-2024 Chronic Adjustment disorders (11 sources) Stress and adjustment reaction; Translations: [Adjustment disorder with other symptoms] Onset: 4 12-27-2023 Chronic Anxiety disorders (2 sources) Anxiety; Translations: [Anxiety disorder, unspecified] 08-29-2024 Chronic Chronic obstructive pulmonary disease and bronchiectasis (11 sources) Centriacinar emphysema; Translations: [Centrilobular emphysema] Onset: 4 10-03-2023 Chronic Coronary atherosclerosis and other heart disease (2 sources) Calcification of coronary artery; Translations: [Atherosclerotic heart disease of [place] coronary artery without angina pectoris] 09-05-2024 Chronic Disorders of lipid metabolism (20 sources) Hyperlipidemia, unspecified; Translations: [Hyperlipidemia] Onset: Chronic Influenza (2 sources) Influenza due to other identified influenza virus with other respiratory manifestations; Translations: [Influenza with other respiratory manifestations] 09-14-2024 Episodic Miscellaneous mental health disorders (11 sources) Psychophysiologic insomnia; Translations: [Psychophysiologic insomnia] Onset: 4 12-27-2023 Chronic Neoplasms of unspecified nature or uncertain behavior (10 sources) 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; Translations: [Neoplasm of uncertain behavior of other specified sites of the oral cavity] Onset: 5 08-29-2024 Episodic Nonspecific chest pain (4 sources) Chest pain; Translations: [Chest pain, unspecified] Onset: 5 10-17-2024 Episodic Osteoarthritis (20 sources) Osteoarthritis of left hip joint; Translations: [Unilateral primary osteoarthritis, left hip] Onset: 4 Chronic Osteoporosis (2 sources) Age-related osteoporosis without current pathological fracture; Translations: [Age-related osteoporosis without current pathological fracture] Chronic Other aftercare (8 sources) Patient encounter status; Translations: [Aftercare following joint replacement surgery] 11-08-2023 Chronic Other aftercare (11 sources) Aftercare following joint replacement surgery; Translations: [Aftercare following joint replacement] Onset: 4 11-08-2023 Chronic Other aftercare (1 source) Other detention (current) drug therapy Episodic Other circulatory disease (3 sources) Elevated blood-pressure reading without diagnosis of hypertension; Translations: [Elevated blood-pressure reading, without diagnosis of hypertension] Onset: 5 08-26-2024 Episodic Other circulatory disease (1 source) Elevated blood-pressure reading, without diagnosis of hypertension; Translations: [Elevated blood-pressure reading, without diagnosis of hypertension] Onset: 5 Episodic Other connective tissue disease (8 sources) Hip joint prosthesis present; Translations: [Presence of left artificial hip joint] 11-08-2023 Chronic Other connective tissue disease (10 sources) Presence of left artificial hip joint; Translations: [Hip joint replacement] 11-08-2023 Chronic Other connective tissue disease (11 sources) History of repair of hip joint; Translations: [Presence of left artificial hip joint] Onset: 4 12-27-2023 Chronic Other connective tissue disease (2 sources) Impingement syndrome of left shoulder Episodic Other hereditary and degenerative nervous system conditions (7 sources) Restless legs; Translations: [Restless legs syndrome] Onset: 4 08-08-2023 Chronic Other nervous system disorders (2 sources) Carpal tunnel syndrome of right wrist; Translations: [Carpal tunnel syndrome, right upper limb] 10-01-2024 Chronic Other nervous system disorders (2 sources) Carpal tunnel syndrome, right upper limb; Translations: [Carpal tunnel syndrome] 10-01-2024 Chronic Other non-traumatic joint disorders (1 source) Pain in left hip Episodic Other non-traumatic joint disorders (2 sources) Pain in wrist; Translations: [Pain in right wrist] 09-30-2024 Episodic Other non-traumatic joint disorders (1 source) Pain in right wrist; Translations: [Pain in right wrist] Onset: Episodic Other non-traumatic joint disorders (1 source) Pain in left wrist; Translations: [Pain in left wrist] Onset: Episodic Other nutritional; endocrine; and metabolic disorders (2 sources) Morbid (severe) obesity due to excess calories; Translations: [Obesity, morbid, BMI 50 or higher] Chronic Regional enteritis and ulcerative colitis (11 sources) Colitis; Translations: [Left sided colitis with rectal bleeding] Onset: 4 09-21-2023 Chronic Residual codes; unclassified (2 sources) Family history of congestive heart failure; Translations: [Family history of ischemic heart disease and other diseases of the circulatory system] 06-18-2024 Episodic Residual codes; unclassified (2 sources) Family history of aneurysm of abdominal aorta; Translations: [Family history of ischemic heart disease and other diseases of the circulatory system] 06-18-2024 Episodic Residual codes; unclassified (12 sources) Family history of cardiac disorder; Translations: [Family history of ischemic heart disease and other diseases of the circulatory system] Onset: 4 06-18-2024 Episodic Residual codes; unclassified (3 sources) FH: Cardiovascular disease; Translations: [Family history of ischemic heart disease and other diseases of the circulatory system] Onset: 5 08-26-2024 Episodic Residual codes; unclassified (1 source) Family history of ischemic heart disease and other diseases of the circulatory system; Translations: [Family history of ischemic heart disease and other diseases of the circulatory system] Onset: 5 Episodic Unclassified (1 source) Encounter for preprocedural laboratory examination; Translations: [Encounter for preprocedural laboratory examination] Onset: Past or Other Problems Problem Classification Problem Date Documented Da te Episodic/Chronic Other gastrointestinal disorders (1 source) Personal history of other diseases of the digestive system; Translations: [Personal history of other diseases of the digestive system] Onset: 01-26-2024 Episodic Other screening for suspected conditions (not mental disorders or infectious disease) (20 sources) Encounter for screening mammogram for malignant neoplasm of breast; Translations: [Encounter for screening for malignant neoplasm of respiratory organs] Onset: 04-05-2022 Episodic Other skin disorders (11 sources) Loss of hair; Translations: [Nonscarring hair loss, unspecified] Onset: 12-27-2023 12-27-2023 Episodic Other upper respiratory infections (7 sources) Acute upper respiratory infection; Translations: [Acute upper respiratory infection, unspecified] Onset: 10-12-2023 10-12-2023 Episodic Screening and history of mental health and substance abuse codes (1 source) Personal history of nicotine dependence; Translations: [PERSONAL HISTORY OF NICOTINE DEPEND] Onset: 04-10-2022 Episodic Results Test Name Value Interpretation Reference Range Facility X-ray reportOrdered By: Anna Melchor on 10-01-2024 Study report [facility] [address] [place] [address] XRay Report Signed Patient: Nadya Kuhn MR#: [id number] : 1955 Acct:[id number] Age/Sex: 69 / F ADM Date: 5 [place] [facility] [place]: [facility] Attending Dr: Gabino Rios MD Copies to: Gabino Rios MD~ Ordering Provider: Gabino Rios MD Date of Service: 10/01/24 XR/XR wrist min BI 3V: M25.531 - Pain in right wrist BILATERAL WRISTS - 4 views each COMPARISON: None CLINICAL DATA: Generalized bilateral wrist pain and numbness. No injury. AP, lateral, oblique and supplemental AP views of the thumbs were obtained. No acute fractures or dislocation are noted. There is narrowing of the lateral intercarpal joint spaces as well as the first carpal metacarpal joint on both sides. There is also mild hypertrophy as well as cystic change at the base of the first metacarpal on the right. No focal soft tissue swelling is noted. XR/XR wrist min BI 3V IMPRESSION: DEGENERATIVE CHANGES AT THE LATERAL WRIST AND FIRST CARPAL METACARPAL JOINTS, RIGHT SIDE SLIGHTLY GREATER THAN LEFT. NO ACUTE BONY FINDINGS. Impression dictated by: Mariel Melchor M.D.10/01/2024 1:39 PM Dictation Location: [place] [address] Transcribed By: EVERARDO 10/01/24 133 Dictated By: Mariel Melchor MD 10/01/24 1336 Signed By: 10/01/24 133 [facility] Work Phone: XR wrist min BI 3Von 025 XR wrist min BI 3V [facility] [address] [place] [address] XRay Report Signed Patient: Nadya Kuhn MR#: [id number] : 1955 Acct:[id number] Age/Sex: 69 / F ADM Date: 10/01/24 [place] [facility] [place]: Type: [facility] Attending Dr: Gabino Rios MD Copies to: Gabino Rios MD Ordering Provider: Gabino Rios MD Date of Service: 10/01/24 XR/XR wrist min BI 3V: M25.531 - Pain in right wrist BILATERAL WRISTS - 4 views each COMPARISON: None CLINICAL DATA: Generalized bilateral wrist pain and numbness. No injury. AP, lateral, oblique and supplemental AP views of the thumbs were obtained. No acute fractures or dislocation are noted. There is narrowing of the lateral intercarpal joint spaces as well as the first carpal metacarpal joint on both sides. There is also mild hypertrophy as well as cystic change at the base of the first metacarpal on the right. No focal soft tissue swelling is noted. XR/XR wrist min BI 3V IMPRESSION: DEGENERATIVE CHANGES AT THE LATERAL WRIST AND FIRST CARPAL METACARPAL JOINTS, RIGHT SIDE SLIGHTLY GREATER THAN LEFT. NO ACUTE BONY FINDINGS. Impression dictated by: Mariel Melchor M.D.10/01/2024 1:39 PM Dictation Location: [place] [address] Transcribed By: [facility] 10/01/24 1339 Dictated By: Mariel Melchor MD 10/01/24 1336 Signed By: 10/01/24 1339 Normal [facility] Influenza virus B Ag [Presen ce] in Upper respiratory specimen by Rapid immunoassayon 09-14-2024 FLUBV Ag IA.rapid Ql (Nph) Influenza virus B Ag [Presence] in Upper respiratory specimen by Rapid immunoassay [facility] No Panel Informationon 09-14 Influenza Type A (Rapid) Positive [facility] POC SARS CoV-2 Antigen Negative [facility] CT CARDIAC SCORING WO IV CON TRASTon 08-26-2024 CT CARDIAC SCORING WO IV CONTRAST Interpreted By: Roscoe Lau, ADDENDUM: Technical: The following is to serve as an over-read for an unenhanced cardiac CT, to evaluate the extravascular structures. Contiguous unenhanced CT sections are performed from level of the lucía to the upper abdomen. Findings: The visualized portions of both lungs are clear. There is no sign of pathologic lymph node enlargement. There is no pericardial or pleural effusion. Images through the upper abdomen are unremarkable. The visualized osseous and soft tissue structures of the chest wall are intact. Impression: The extravascular structures have an unremarkable CT appearance. Signed by: Roscoe Lau 08/27/2024 9:17 AM -------- ORIGINAL REPORT -------- Dictation workstation: [id number] Interpreted By: Roscoe Trejo, STUDY: CT CARDIAC SCORING WO IV CONTRAST; 08/26/2024 4:27 pm INDICATION: Signs/Symptoms:hypertensio n. COMPARISON: None. ACCESSION NUMBER(S): [id number] ORDERING CLINICIAN: INTERFACE UNSPECIFIELDPROVIDER TECHNIQUE: Using prospective ECG gating, CT scan of the coronary arteries was performed without intravenous contrast. Coronary calcium scoring was performed according to the method of Agatston. CT Dose-Length Product (DLP): 63.3 mGy*cm CT Dose Reduction Employed: Yes, prospective gating, iterative reconstruction. FINDINGS: The score and distribution of calcium in the coronary arteries is as follows: LM 0 LAD 437 LCx 0 RCA 300 Total 738 The visualized ascending thoracic aorta measures 3.0 cm in diameter. The heart is normal in size. No pericardial effusion is present. The main pulmonary artery, right and left pulmonary artery are normal in size. IMPRESSION: 1. Coronary artery calcium score of 738*. 2. KAY 97th percentile for age, gender, and race in asymptomatic patients. *Coronary Artery Agatston score Score risk Very low 1-99 Mildly increased 100-299 Moderately increased >300 Moderate to severely increased >800 Floyd et al. JCCT 2016 (http://dx.doi.org/10.1016 /j.jcct.2016.11.003) KAY Percentile In general, greater than 75th percentile for age, gender, and race is considered to be a higher relative risk and higher lifetime risk condition. Greater than 75th percentile=moderate to severely increased relative risk irrespective of the score. Advise using KAY 10 year CHD risk calculator below for better discrimination of risk. KAY 10-Year CHD Risk with Coronary Artery Calcification can be calcuate using link below https://www.kay-nhlbi.org /MESACHDRisk/MesaRiskScore /RiskScore.aspx Andrea herman al. JACC 2014 (http://dx.doi.org/10.1016 /j.j acc.2015.08.035) Reading Supervisor Public Message Service: Dr. Roscoe Trejo, Date: 08/27/2024 8:24 am Signed by: Roscoe Trejo 08/27/2024 8:24 AM Dictation workstation: [id number] [facility] Amphetamine Screen Ql (U)Ord ered By: Nazario Blue on 01-26-2024 Amphetamines Ql (U) Negative Negative [facility] Barbiturates [Presence] in U rine by Screen methodOrdered By: Nazario Blue on 01-26-2024 Barbiturates Screen Ql (U) Negative Negative [facility] Benzodiazepines Screen Ql (U )Ordered By: Nazario Blue on 01-26-2024 Benzodiazepines Ql (U) Negative Negative [facility] Benzoylecgonine [Presence] i n Urine by Screen methodOrdered By: Nazario Blue on 01-26-2024 Benzoylecgonine Screen Ql (U) Negative Negative [facility] Cannabinoids [Presence] in U rine by Screen methodOrdered By: Nazario Blue on 01-26-2024 Cannabinoids Screen Ql (U) Positive High Negative [facility] Comment on above: These are unconfirme d results and should not be used for legal purposes. Drug Cut-Off Concentration: AMPH 1000 ng/mL SONIDO 200 ng/mL MICHELLE 200 ng/mL COCM 300 ng/mL OP 300 ng/mL PCP 25 ng/mL THC 20 ng/mL Drug Screen,Urineon 01-26-20 24 Amphetamine Screen,Urine Negative Normal Negative [facility] Comment on above: Performed By: #### U RDS #### [address] Barbiturate Screen,Urine Negative Normal Negative [facility] Comment on above: Performed By: #### U RDS #### [address] Benzodiazepines Screen,Urine Negative Normal Negative [facility] Comment on above: Performed By: #### U RDS #### [address] Cannabinoid Screen,Urine Positive High Negative [facility] Comment on above: Result Comment: Thes e are unconfirmed results and should not be used for legal purposes. Drug Cut-Off Concentration: AMPH 1000 ng/mL SONIDO 200 ng/mL MICHELLE 200 ng/mL COCM 300 ng/mL OP 300 ng/mL PCP 25 ng/mL THC 20 ng/mL PERFORMED BY: [place] [address] PATHOLOGIST ORTHOTICS TECHNICIAN SAMANTHA PEREZ M.D. Performed By: #### U RDS #### [address] Cocaine Screen,Urine Negative Normal Negative [facility] Comment on above: Performed By: #### U RDS #### [place] [address] [place] Opiate Screen,Urine Negative Normal Negative [facility] Comment on above: Performed By: #### U RDS #### [place] [address] [place] Phencyclidine Screen,Urine Negative Normal Negative [facility] Comment on above: Performed By: #### U RDS #### [facility] [address] [place]o 01-26-2024 L Specimen: [id number] Received: 01/26/24 Status: NAHEED Garcia Num: [id number] Spec Type: Surgical Subm Dr: Nazario Blue MD Tissues: A Colon Biopsy (CECAL POLYP) B Colon Biopsy (ASC POLYP) C Colon Biopsy (DESC POLYP) Procedures: HE/6, Gross/Micro L4/3 Age/ Patient Sex Location Account Attending Physician Nadya Kuhn 68/F [id number] Nazario Blue MD SPEC NUM: RECD: 01/26/24 STATUS: NAHEED GARCIA NUM: [id number] RAMÓN: 01/26/24- SUBM DR: Nazario Blue MD ENTERED: 01/26/24 [facility] DR: SPEC TYPE: Surgical DEPT: S ORDERED: HE/6, Gross/Micro L4/3 ORDERED: HE/6, Gross/Micro L4/3 Pathological Diagnosis A, cecal polyp biopsy: -Small tubular adenoma B, ascending colon polyp biopsy: -Fragments of tubular adenoma C, descending colon polyp biopsy: -Small tubular adenoma Clinical Information Colitis Gross Description Received are 3 formalin filled containers each labeled with the patient's name, date of and specific specimen site. A. Further labeled cecal polyp is a 0.5 x 0.3 x 0.1 cm martinez polypoid tissue fragment, entirely submitted in A1. B. Further labeled ascending colon polyp are 2 martinez polypoid tissue fragments are 2 martinez Specimen: [id number] Received: 01/26/24 Status: NAHEED Garcia Num: [id number] Spec Type: Surgical Subm Dr: Nazario Blue MD Tissues: A Colon Biopsy (CECAL POLYP) B Colon Biopsy (ASC POLYP) C Colon Biopsy (DESC POLYP) Procedures: Stephan PLASCENCIA/Micro L4/3 Patient: Nadya Kuhn [id number] (Continued) Specimen: [id number] Received: 01/26/24 (Continued) Gross Description (Continued) Signed (signature on file) Felicia Cueto MD 01/29/241914 Specimen: [id number] Received: 01/26/24 Status: NAHEED Garcia Num: [id number] Spec Type: Surgical Subm Dr: Nazario Blue MD Tissues: A Colon Biopsy (CECAL POLYP) B Colon Biopsy (ASC POLYP) C Colon Biopsy (DESC POLYP) Procedures: ANDREIStephan Cruz/Micro L4/3 Patient: Nadya Kuhn [id number] (Continued) Specimen: [id number] Received: 01/26/24 (Continued) Gross Description (Continued) polypoid tissue fragments ranging from 0.4 x 0.4 x 0.2 cm to 0.3 x 0.3 x 0.2 cm, entirely submitted in B1. C. Further labeled descending colon polyp is a 0.3 x 0.3 x 0.1 cm martinez polypoid tissue fragments, entirely submitted in C1. CPT Codes 66119 X.3 Specimen: [id number] Received: 01/26/24 Status: NAHEED Garcia Num: [id number] Spec Type: Surgical Subm Dr: Nazario Blue MD Tissues: A Colon Biopsy (CECAL POLYP) B Colon Biopsy (ASC POLYP) C Colon Biopsy (DESC POLYP) Procedures: HE/6, Gross/Micro L4/3 Patient: Nadya Kuhn [id number] (Continued) Signed (signature on file) Chin-Jim Cueto MD 01/29/241914 Normal [facility] Opiates [Presence] in Urine by Screen methodOrdered By: Nazario Blue on 01-26-2024 Opiates Screen Ql (U) Negative Negative [facility] Phencyclidine Screen Ql (U)O rdered By: Nazario Blue on 01-26-2024 Phencyclidine Ql (U) Negative Negative [facility] XR hip LT min 2V(w/wo pelvis )*on 12-06-2023 XR hip LT min 2V(w/wo pelvis)* [facility] [address] [place] [address] XRay Report Signed Patient: Nadya Kuhn MR#: [id number] : 1955 Acct:[id number] Age/Sex: 68 / F ADM Date: 12/06/23 [place] [facility] [place]: Type: [facility] Attending Dr: Luis Carlton II, MD Copies [...] Luis King M.D.12/06/2023 2:13 PM Dictation Location: [place] [address] Transcribed By: [facility] 12/06/23 1413 Dictated By: Angel Luis King DO 12/06/23 1413 Signed By: 12/06/23 1413 Normal [facility] ABO/Rh Retypeon 10-23-2023 ABO/RH Recheck Result Positive Normal [facility] Comment on above: Result Comment: PERF ORMED BY: [facility] [address] [place] [address] PATHOLOGIST ORTHOTICS TECHNICIAN SAMANTHA PEREZ M.D. Amphetamine Screen Ql (U)Ord ered By: Jose Martin Nieves on 10-23-2023 Amphetamines Ql (U) Negative Negative [facility] Barbiturates [Presence] in U rine by Screen methodOrdered By: Jose Martin Nieves on 10-23-2023 Barbiturates Screen Ql (U) Negative Negative [facility] Benzodiazepines Screen Ql (U )Ordered By: Jose Martin Nieves on 10-23-2023 Benzodiazepines Ql (U) Negative Negative [facility] Benzoylecgonine [Presence] i n Urine by Screen methodOrdered By: Jose Martin iNeves on 10-23-2023 Benzoylecgonine Screen Ql (U) Negative Negative [facility] Cannabinoids [Presence] in U rine by Screen methodOrdered By: Jose Martin Nieves on 10-23-2023 Cannabinoids Screen Ql (U) Negative Negative [facility] Comment on above: These are unconfirme d results and should not be used for legal purposes. Drug Cut-Off Concentration: AMPH 1000 ng/mL SONIDO 200 ng/mL MICHELLE 200 ng/mL COCM 300 ng/mL OP 300 ng/mL PCP 25 ng/mL THC 20 ng/mL Drug Screen,Urineon 10-23-19 Amphetamine Screen,Urine Negative Normal Negative [facility] Comment on above: Performed By: #### U RDS #### [address] Barbiturate Screen,Urine Negative Normal Negative [facility] Comment on above: Performed By: #### U RDS #### [address] Benzodiazepines Screen,Urine Negative Normal Negative [facility] Comment on above: Performed By: #### U RDS #### [address] Cannabinoid Screen,Urine Negative Normal Negative [facility] Comment on above: Result Comment: Thes e are unconfirmed results and should not be used for legal purposes. Drug Cut-Off Concentration: AMPH 1000 ng/mL SONIDO 200 ng/mL MICHELLE 200 ng/mL COCM 300 ng/mL OP 300 ng/mL PCP 25 ng/mL THC 20 ng/mL PERFORMED BY: [place] [address] PATHOLOGIST ORTHOTICS TECHNICIAN SAMANTHA PEREZ M.D. Performed By: #### U RDS #### [address] Cocaine Screen,Urine Negative Normal Negative [facility] Comment on above: Performed By: #### U RDS #### [place] [address] [place] Opiate Screen,Urine Negative Normal Negative [facility] Comment on above: Performed By: #### U RDS #### [address] Phencyclidine Screen,Urine Negative Normal Negative [facility] Comment on above: Performed By: #### U RDS #### [facility] [address] [place] [id number] [facility] Romeo 10-23-2023 L Specimen: Received: 10/23/23 Status: NAHEED Garcia Num: [id number] Spec Type: Surgical Subm Dr: Luis Carlton MD Tissues: A Femoral Head - Other than Fracture (LT HIP) Procedures: HE/2, Gross/Micro L3, Decalcification Age/ Patient Sex Location Account Attending Physician Nadya Kuhn 68/F MD [id number] Luis Carlton MD SPEC NUM: [id number] RECD: 10/23/23 STATUS: NAHEED GARCIA NUM: [id number] RAMÓN: 10/23/[address]: Luis Carlton MD ENTERED: 10/23/23 [facility] DR: SPEC TYPE: Surgical DEPT: S [...] cm aggregate of martinez-red bone and rubbery, fisher-white tissue. The femoral head has a smooth to granular martinez-fisher articular surface with eburnation identified and focal nodularity of the articular cartilage. The cut surface is yellow-martinez, trabecular, focally hyperemic with thinning of the articular cartilage identified. A gross photo is taken. Gross examination only. CPT Codes 38098 Specimen: Received: 10/23/23 Status: NAHEED Garcia Num: [id number] Spec Type: Surgical Subm Dr: Luis Carlton MD Tissues: A Femoral Head - Other than Fracture (LT HIP) Procedures: HE/2, Gross/Micro L3, Decalcification Patient: Nadya Kuhn [id number] (Continued) Specimen: [id number] Received: 10/23/23 (Continued) Signed (signature on file) Edgardo Doll MD 10/24/231230 Specimen: [id number] Received: 10/23/23 Status: NAHEED Garcia Num: [id number] Spec Type: Surgical Subm Dr: Luis Carlton MD Tissues: A Femoral Head - Other than Fracture (LT HIP) Procedures: /2, Gross/Micro L3, Decalcification Patient: Nadya Kuhn [id number] (Continued) Specimen: [id number] Received: 10/23/23 (Continued) Stephan Photo Specimen: [id number] Received: 10/23/23 Status: NAHEED Garcia Num: [id number] Spec Type: Surgical Subm Dr: Luis Carlton MD Tissues: A Femoral Head - Other than Fracture (LT HIP) Procedures: HE/2, Gross/Micro L3, Decalcification Patient: Nadya Kuhn [id number] (Continued) Signed (signature on file) Edgardo Doll MD 10/24/23 1231 Normal [facility] Opiates [Presence] in Urine by Screen methodOrdered By: Jose Martin Nieves on 10-23-2023 Opiates Screen Ql (U) Negative Negative [facility] Phencyclidine Screen Ql (U)O rdered By: Jose Martin Nieves on 10-23-2023 Phencyclidine Ql (U) Negative Negative [facility] XR hip LT 1Von 10-23-2023 XR hip LT 1V [place] [address] XRay Report Signed Patient: Nadya Kuhn MR#: [id number] 1147 : 1955 Acct:[id number] Age/Sex: 68 / F ADM Date: 10/23/23 Loc: MD Room: Type: [facility] Attending Dr: Luis Carlton II, MD [...] 10/23/231533 Signed By: 10/23/23 153 Normal [facility] XR low pelvis w/LT x-table h ipon 10-23-2023 XR low pelvis w/LT x-table hip [facility] [place] [address] XRay Report Signed Patient: Nadya Kuhn MR#: [id number] : 1955 Acct:[id number] Age/Sex: 68 / F ADM Date: 10/23/23 Loc: MD Room: Type: [facility] Attending Dr: Luis Carlton II, MD [...] Jr, DO 10/23/23 1325 Signed By: 10/23/23 132 Normal [facility] Anisocytosis [Presence] in B lood by Light microscopyOrdered By: Luis Carlton on 10-10-2023 Anisocytosis Ql (Bld) Slight Normal [facility] Comment on above: Performed By: #### F RUC #### [facility] , #### BMP, SCAN CBC #### [address] Automated basophil %Ordered By: Luis Carlton on 10-10-2023 Basophils/100 WBC (Bld) 0.6 % Normal . [facility] Comment on above: Performed By: #### F RUC #### [facility] , #### BMP, SCAN CBC #### [address] Automated basophil countOrde red By: Luis Carlton on 10-10-2023 Basophils (Bld) [#/Vol] 0.0 10*3/uL Normal 0.0-0.2 [facility] Comment on above: Performed By: #### F RUC #### [facility] , #### BMP, SCAN CBC #### [address] Automated blood monocyte cou ntOrdered By: Luis Carlton on 10-10-2023 Monocytes (Bld) [#/Vol] 0.4 10*3/uL Normal 0.0-0.8 [facility] Comment on above: Performed By: #### F RUC #### [facility] , #### BMP, SCAN CBC #### [address] Automated eosinophil %Ordere d By: Luis Carlton on 10-10-2023 Eosinophils/100 WBC (Bld) 1.5 % Normal . [facility] Comment on above: Performed By: #### F RUC #### [facility] , #### BMP, SCAN CBC #### [address] Automated eosinophil countOr dered By: Luis Carlton on 10-10-2023 Eosinophils (Bld) [#/Vol] 0.1 10*3/uL Normal 0.0-0.45 [facility] Comment on above: Performed By: #### F RUC #### [facility] , #### BMP, SCAN CBC #### [facility] [address] Automated erythrocytes count in urine sediment (number/area)Ordered By: Luis Carlton on 10-10-2023 RBC Auto (Urine sed) [#/Area] 0-1 [HPF] 0-4 [facility] Automated leukocytes count i n urine sediment (number/area)Ordered By: Luis Carlton on 10-10-2023 WBC Auto (Urine sed) [#/Area] 3-4 [HPF] 0-4 [facility] Automated monocyte %Ordered By: Luis Carlton on 10-10-2023 Monocytes/100 WBC (Bld) 6.3 % Normal . [facility] Comment on above: Performed By: #### F RUC #### [facility] , #### BMP, SCAN CBC #### [address] Automated neutrophil %Ordere d By: Luis Carlton on 10-10-2023 Neutrophils/100 WBC (Bld) 59.1 % Normal . [facility] Comment on above: Performed By: #### F RUC #### [facility] , #### BMP, SCAN CBC #### [address] Automated urine color determ inationOrdered By: Luis Carlton on 10-10-2023 Color (U) Yellow Normal Yellow [facility] Comment on above: Order Comment: Name Collection Type:: Clean-Voided Midstream Performed By: #### A DDONUAPLUS #### [address] Basic Metabolic Panelon 09-28 GFR/1.73 sq M.predicted MDRD (S/P/Bld) [Vol rate/Area] mL/min/{1.73_m2} Normal [facility] Comment on above: Performed By: #### F RUC #### [facility] , #### BMP, SCAN CBC #### [facility] [address] Bilirubin Test strip Ql (U)O rdered By: Luis Carlton on 10-10-2023 Bilirubin Ql (U) Negative Negative [facility] Calcium [Mass/volume] in Ser um or PlasmaOrdered By: Luis Carlton on 10-10-2023 Calcium [Mass/Vol] 10.0 mg/dL Normal 8.6-10.3 [facility] Comment on above: Result Comment: PERF ORMED BY: [place] [address] PATHOLOGIST ORTHOTICS TECHNICIAN SAMANTHA PEREZ M.D. Performed By: #### F RUC #### [facility] , #### BMP, SCAN CBC #### [address] Carbon dioxide, total [Moles /volume] in Serum or PlasmaOrdered By: Luis Carlton on 10-10-2023 CO2 [Moles/Vol] 26.0 mmol/L Normal 21.0-31.0 [facility] Comment on above: Performed By: #### F RUC #### [facility] , #### BMP, SCAN CBC #### [facility] [address] [place] [address] [place] Chloride [Moles/volume] in S leann or PlasmaOrdered By: Luis Carlton on 10-10-2023 Chloride [Moles/Vol] 105 mmol/L Normal 98-107 [facility] Comment on above: Performed By: #### F RUC #### [facility] , #### BMP, SCAN CBC #### [facility] [address] [place] [address] [place] Creatinine [Mass/volume] in Serum or PlasmaOrdered By: Luis Carlton on 10-10-2023 Creatinine [Mass/Vol] 0.65 mg/dL Normal 0.60-1.20 [facility] Comment on above: Performed By: #### F RUC #### [facility] , #### BMP, SCAN CBC #### [place] [address] [place] Dipstick and Microscopicon 0 10-10-2023 Appearance (U) Clear Normal Clear [facility] Comment on above: Order Comment: Name Collection Type:: Clean-Voided Midstream Performed By: #### A DDONUAPLUS #### [place] [address] [place] Bacteria,Urine None Seen Normal None Seen [facility] Comment on above: Order Comment: Name Collection Type:: Clean-Voided Midstream Performed By: #### A DDONUAPLUS #### [address] Bilirubin,Urine Negative Normal Negative [facility] Comment on above: Order Comment: Name Collection Type:: Clean-Voided Midstream Performed By: #### A DDONUAPLUS #### [address] Glucose Ql (U) Normal Normal Normal [facility] Comment on above: Order Comment: Name Collection Type:: Clean-Voided Midstream Performed By: #### A DDONUAPLUS #### [address] Hyaline Casts,Urine 0-8 Normal 0-8 [facility] Comment on above: Order Comment: Name Collection Type:: Clean-Voided Midstream Result Comment: PERF ORMED BY: [place] [address] PATHOLOGIST ORTHOTICS TECHNICIAN SAMANTHA PEREZ M.D. Performed By: #### A DDONUAPLUS #### [address] Ketones Ql (U) Negative Normal Negative [facility] Comment on above: Order Comment: Name Collection Type:: Clean-Voided Midstream Performed By: #### A DDONUAPLUS #### [address] Leukocyte esterase Test strip Ql (U) 2+ High Negative [facility] Comment on above: Order Comment: Name Collection Type:: Clean-Voided Midstream Performed By: #### A DDONUAPLUS #### [place] [address] [place] Nitrite,Urine Negative Normal Negative [facility] Comment on above: Order Comment: Name Collection Type:: Clean-Voided Midstream Performed By: #### A DDONUAPLUS #### [address] Occult Blood,Urine Negative Normal Negative [facility] Comment on above: Order Comment: Name Collection Type:: Clean-Voided Midstream Result Comment: PERF ORMED BY: [place] [address] PATHOLOGIST ORTHOTICS TECHNICIAN SAMANTHA PEREZ M.D. Performed By: #### A DDONUAPLUS #### [address] Protein,Urine Negative Normal Negative [facility] Comment on above: Order Comment: Name Collection Type:: Clean-Voided Midstream Performed By: #### A DDONUAPLUS #### [address] RBC LM.HPF (Urine sed) [#/Area] 0 /[HPF] Normal 0-4 [facility] Comment on above: Order Comment: Name Collection Type:: Clean-Voided Midstream Performed By: #### A DDONUAPLUS #### [address] Specificy Bath,Urine 1.012 Normal 1.001-1.03 0 [facility] Comment on above: Order Comment: Name Collection Type:: Clean-Voided Midstream Performed By: #### A DDONUAPLUS #### [address] Squamous Epithelial Cell,Urine 0-1 Normal 0-2 [facility] Comment on above: Order Comment: Name Collection Type:: Clean-Voided Midstream Performed By: #### A DDONUAPLUS #### [address] [place] [address] [place] Urobilinogen,Urine Normal Normal Normal [facility] Comment on above: Order Comment: Name Collection Type:: Clean-Voided Midstream Performed By: #### A DDONUAPLUS #### [facility] [address] [place] [address] WBC,Urine 3-4 Normal 0-4 [facility] Comment on above: Order Comment: Name Collection Type:: Clean-Voided Midstream Performed By: #### A DDONUAPLUS #### [facility] [address] [place] [address] ECG 12 lead ECGon 10-10-2023 ECG 12 lead ECG [facility] [place] [address] [place] [address] Electrocardiograph Report Signed Patient: Nadya Kuhn MR#: [id number] : 1955 Acct:[id number] Age/Sex: 68 / F ADM Date: 10/10/23 Loc: Room: Type: [facility] Attending Dr: Luis Carlton II, MD Ordering [...] (292) on 10/10/2023 5:39:11 PM Referred By: BRANDT Electronically Signed By:LORI NUÑEZ MD Transcribed By: GONZALO Signed By Lori Nuñez MD 0 10/10/23 1739 Normal [facility] Erythrocyte distribution wid th [Ratio] by Automated countOrdered By: Luis Carlton on 10-10-2023 Erythrocyte distribution width (RBC) [Ratio] 14.3 % Normal 11.9-15.3 [facility] Comment on above: Performed By: #### F RUC #### [facility] , #### BMP, SCAN CBC #### [facility] [address] [place] [address] [place] Erythrocytes [#/volume] in B lood by Automated countOrdered By: Luis Carlton on 10-10-2023 RBC (Bld) [#/Vol] 4.29 10*6/uL Normal 3.60-5.00 [facility] Comment on above: Performed By: #### F RUC #### [facility] , #### BMP, SCAN CBC #### [facility] [address] [place] [address] [place] Fructosamineon 10-10-2023 Fructosamine 213 umol/L Normal 0-285 [facility] Comment on above: Result Comment: Publ ished reference interval for apparently healthy subjects between age 20 and 60 is 205 - 285 umol/L and in a poorly controlled diabetic population is 228 - 563 umol/L with a mean of 396 umol/L. Performed at: [facility] [address] [id number] Gold Cutter: Zia Rome PhD, Phone: [phone] PERFORMED BY: [place] [address] PATHOLOGIST ORTHOTICS TECHNICIAN SAMANTHA PEREZ M.D. Performed By: #### F RUC #### [facility] , #### BMP, SCAN CBC #### [facility] [address] [place] [address] [place] Fructosamine [Moles/volume] in Serum or PlasmaOrdered By: Luis Carlton on 10-10-2023 Fructosamine [Moles/Vol] 213 umol/L 0-285 [facility] Comment on above: Published reference interval for apparently healthysubjects between age 20 and 60 is 205 - 285 umol/L and in apoorly controlled diabetic population is 228 - 563 umol/Lwith a mean of 396 umol/L.Performed at: [facility] [id number] [place], [place] [id number] Director: Zia Rome PhD, Phone: [phone] Glucose [Mass/volume] in Ser um or PlasmaOrdered By: Luis Carlton on 10-10-2023 Glucose [Mass/Vol] 73 mg/dL Normal 70-100 [facility] Comment on above: ADA recommended refe rence rangeRandom Glucose Reference Range is dependent on time and content of last meal. Glucose of more than 200 mg/dL in a nonstressed, ambulatory subject supports the diagnosis of Diabetes Mellitus. Result Comment: [place] om Glucose Reference Range is dependent on time and content of last meal. Glucose of more than 200 mg/dL in a nonstressed, ambulatory subject supports the diagnosis of Diabetes Mellitus. ADA recommended reference range Performed By: #### F RUC #### [facility] , #### BMP, SCAN CBC #### [address] Hematocrit [Volume Fraction] of Blood by Automated countOrdered By: Luis Carlton on 10-10-2023 Hematocrit (Bld) [Volume fraction] 39.9 % Normal 34.0-46.4 [facility] Comment on above: Performed By: #### F RUC #### [facility] , #### BMP, SCAN CBC #### [facility] [address] [place] [address] Hemoglobin [Mass/volume] in BloodOrdered By: Luis Carlton on 10-10-2023 Hemoglobin (Bld) [Mass/Vol] 13.3 g/dL Normal 11.8-15.4 [facility] Comment on above: Performed By: #### F RUC #### [facility] , #### BMP, SCAN CBC #### [facility] [address] [place] [address] Ketones Auto test strip (U) [Mass/Vol]Ordered By: Luis Carlton on 10-10-2023 Ketones (U) [Mass/Vol] Negative Negative [facility] Laboratory - UrinalysisOrder ed By: Luis Carlton on 10-10-2023 Hyaline casts LM Ql (Urine sed) 0-8 [LPF] 0-8 [facility] Leukocytes [#/volume] correc loraine for nucleated erythrocytes in Blood by Automated counOrdered By: Luis Carlton on 10-10-2023 WBC corrected for nucl RBC Auto (Bld) [#/Vol] 6.1 10*3/uL 3.8-11.6 [facility] Leukocytes [#/volume] in Blo od by Automated countOrdered By: Luis Carlton on 10-10-2023 WBC (Bld) [#/Vol] 6.1 10*3/uL Normal 3.8-11.6 [facility] Comment on above: Performed By: #### F RUC #### [facility] , #### BMP, SCAN CBC #### [facility] [address] [place] [address] [place] Lymphocytes [#/volume] in Bl ood by Automated countOrdered By: Luis Carlton on 10-10-2023 Lymphocytes (Bld) [#/Vol] 2.0 10*3/uL Normal 1.00-4.8 [facility] Comment on above: Performed By: #### F RUC #### [facility] , #### BMP, SCAN CBC #### [facility] [address] [place] [address] [place] Lymphocytes/100 leukocytes i n Blood by Automated countOrdered By: Luis Carlton on 10-10-2023 Lymphocytes/100 WBC (Bld) 32.5 % Normal . [facility] Comment on above: Performed By: #### F RUC #### [facility] , #### BMP, SCAN CBC #### [facility] [address] [place] [address] [place] MCH [Entitic mass] by Automa loraine countOrdered By: Luis Carlton on 10-10-2023 MCH (RBC) [Entitic mass] 30.9 pg Normal 24.7-34.3 [facility] Comment on above: Performed By: #### F RUC #### [facility] , #### BMP, SCAN CBC #### [facility] [address] [place] [address] MCHC Auto (RBC) [Mass/Vol]Or dered By: Luis Carlton on 10-10-2023 MCHC (RBC) [Mass/Vol] 33.3 g/dL 32.0-35.0 [facility] MCV [Entitic volume] by Auto mated countOrdered By: Luis Carlton on 10-10-2023 MCV (RBC) [Entitic vol] 92.9 fL Normal 80-100 [facility] Comment on above: Performed By: #### F RUC #### [facility] , #### BMP, SCAN CBC #### [facility] [address] [place] [address] Microcytes LM Ql (Bld)Ordere d By: Luis Carlton on 10-10-2023 Microcytes Ql (Bld) Slight [facility] Neutrophils [#/volume] in Bl ood by Automated countOrdered By: Luis Carlton on 10-10-2023 Neutrophils (Bld) [#/Vol] 3.6 10*3/uL Normal 1.8-7.7 [facility] Comment on above: Performed By: #### F RUC #### [facility] , #### BMP, SCAN CBC #### [facility] [address] [place] [address] Nitrite Test strip Ql (U)Ord ered By: Luis Carlton on 10-10-2023 Nitrite Ql (U) Negative Negative [facility] No Panel InformationOrdered By: Luis Carlton on 10-10-2023 Estimated GFR (CKD-EPI) > 60.0 mL/Min [facility] Creatinine Clearance (Chem N/A [facility] Nucleated erythrocytes [Pres ence] in Blood by Automated countOrdered By: Luis Carlton on 10-10-2023 Nucleated RBC Auto Ql (Bld) 0.1 /100{WBC} 0-0.5 [facility] PST Type and Screenon 2023 ABO and Rh group Nom (Bld) Blood group AB Rh(D) positive Normal [facility] Comment on above: Order Comment: Date of Surgery: 20231023 Result Comment: PERF ORMED BY: [place] [address] PATHOLOGIST ORTHOTICS TECHNICIAN SAMANTHA PEREZ M.D. Platelet adequacy [Presence] in Blood by Light microscopyOrdered By: Luis Carlton on 10-10-2023 Platelets LM Ql (Bld) Normal Normal [facility] Platelet mean volume [Entiti c volume] in Blood by Automated countOrdered By: Luis Carlton on 10-10-2023 Platelet mean volume (Bld) [Entitic vol] 10.3 fL Normal 6.3-10.7 [facility] Comment on above: Performed By: #### F RUC #### [facility] , #### BMP, SCAN CBC #### [facility] [address] [place] [address] Platelet morphology finding [Identifier] in BloodOrdered By: Luis Carlton on 10-10-2023 Platelet morphology finding Nom (Bld) Normal Normal [facility] Platelets [#/volume] in Bloo d by Automated countOrdered By: Luis Carlton on 10-10-2023 Platelets (Bld) [#/Vol] 234 10*3/uL Normal 150-450 [facility] Comment on above: Performed By: #### F RUC #### [facility] , #### BMP, SCAN CBC #### [facility] [address] [place] [address] [place] Potassium [Moles/volume] in Serum or PlasmaOrdered By: Luis Carlton on 10-10-2023 Potassium [Moles/Vol] 4.2 mmol/L Normal 3.5-5.1 [facility] Comment on above: Performed By: #### F RUC #### [facility] , #### BMP, SCAN CBC #### [facility] [address] [place] [address] [place] Protein Auto test strip (U) [Mass/Vol]Ordered By: Luis Carlton on 10-10-2023 Protein (U) [Mass/Vol] Negative Negative [facility] RBC morphologyOrdered By: Guillermina Carlton on 10-10-2023 RBC morphology finding Nom (Bld) N/A [facility] Scan and CBCon 10-10-2023 Mean Corpuscular HGB Conc 33.3 g/dL Normal 32.0-35.0 [facility] Comment on above: Performed By: #### F RUC #### [facility] , #### BMP, SCAN CBC #### [facility] [address] [place] [address] Microcytosis Slight Normal [facility] Comment on above: Performed By: #### F RUC #### [facility] , #### BMP, SCAN CBC #### [facility] [address] [place] [address] NRBC% 0.1 /100{WBC} Normal 0-0.5 [facility] Comment on above: Performed By: #### F RUC #### [facility] , #### BMP, SCAN CBC #### [facility] [address] [place] [address] Platelet Estimate Normal Normal Normal [facility] Comment on above: Performed By: #### F RUC #### [facility] , #### BMP, SCAN CBC #### [facility] [address] [place] [address] Platelet Morphology Normal Normal Normal [facility] Comment on above: Result Comment: PERF ORMED BY: [place] [address] PATHOLOGIST ORTHOTICS TECHNICIAN SAMANTHA PEREZ M.D. Performed By: #### F RUC #### [facility] , #### BMP, SCAN CBC #### [facility] [address] [place] [address] [place] Serum or plasma anion gap de terminationOrdered By: Luis Carlton on 10-10-2023 Anion gap [Moles/Vol] 13.2 mmol/L Normal 6.0-15.0 [facility] Comment on above: Performed By: #### F RUC #### [facility] , #### BMP, SCAN CBC #### [facility] [address] Sodium [Moles/volume] in Ser um or PlasmaOrdered By: Luis Carlton on 10-10-2023 Sodium [Moles/Vol] 140 mmol/L Normal 136-145 [facility] Comment on above: Performed By: #### F RUC #### [facility] , #### BMP, SCAN CBC #### [facility] [address] Specific gravity Auto test s trip (U) [Rel density]Ordered By: Luis Carlton on 10-10-2023 Specific gravity (U) [Rel density] 1.012 1.001-1.03 0 [facility] Squamous epithelial cells de tection in urine sediment by light microscopyOrdered By: Luis Carlton on 10-10-2023 Epithelial cells.squamous LM Ql (Urine sed) 0-1 [HPF] 0-2 [facility] Urea nitrogen [Mass/volume] in Serum or PlasmaOrdered By: Luis Carlton on 10-10-2023 Urea nitrogen [Mass/Vol] 14 mg/dL Normal 7-25 [facility] Comment on above: Performed By: #### F RUC #### [facility] , #### BMP, SCAN CBC #### [facility] [address] Urine bacteria detection by automated methodOrdered By: Luis Carlton on 10-10-2023 Bacteria Auto Ql (U) None seen None Seen [facility] Urine clarity by refractomet ry automatedOrdered By: Luis Carlton on 10-10-2023 Clarity Refractometry automated (U) Clear Clear [facility] Urine glucose measurement by automated test strip (mass/volume)Ordered By: Luis Carlton on 10-10-2023 Glucose Auto test strip (U) [Mass/Vol] Normal mg/dL Normal [facility] Urine hemoglobin detection b y automated test stripOrdered By: Luis Carlton on 10-10-2023 Hemoglobin Auto test strip Ql (U) Negative Negative [facility] Urine leukocyte esterase det ection by automated test stripOrdered By: Luis Carlton on 10-10-2023 Leukocyte esterase Auto test strip Ql (U) 2+ Negative [facility] Urine pH measurement by auto mated test stripOrdered By: Luis Carlton on 10-10-2023 pH (U) 5.5 [pH] Normal 5.0-9.0 [facility] Comment on above: Order Comment: Name Collection Type:: Clean-Voided Midstream Performed By: #### A DDONUAPLUS #### [address] Urobilinogen Auto test strip (U) [Mass/Vol]Ordered By: Luis Carlton on 10-10-2023 Urobilinogen (U) [Mass/Vol] Normal mg/dL Normal [facility] Albumin [Mass/volume] in Ser um or Plasma by Bromocresol green (BCG) dye binding methoOrdered By: Luis Carlton on 09-26-2023 Albumin BCG dye [Mass/Vol] 4.5 g/dL 3.5-5.7 [facility] Cotinine [Mass/volume] in Se rum or PlasmaOrdered By: Luis Carlton on 09-26-2023 Cotinine [Mass/Vol] <1.0 ng/mL . [facility] Comment on above: This test was develo ped and its performance characteristicsdetermined by [facility]. It has not been cleared orapproved by the Food and Drug Administration.Cotinine levels greater than 20.0 are consistent with theuse of tobacco or tobacco cessation products.Performed at: [address] [id number] Director: Vania Mendoza MD, Phone: [phone] Glucose mean value [Mass/vol ume] in Blood Estimated from glycated hemoglobinOrdered By: Luis Carlton on 09-26-2023 Average glucose Estimated from glycated hemoglobin (Bld) [Mass/Vol] 105 mg/dL [facility] Hemoglobin A1c percentageOrd ered By: Luis Carlton on 09-26-2023 HbA1c (Bld) [Mass fraction] 5.3 % 4.3-5.6 [facility] Comment on above: Increased risk for d iabetes: 5.7 - 6.4diabetes: >6.4glycemic control for adults with diabetes: <7.0 Hemoglobin [Mass/volume] in BloodOrdered By: Luis Carlton on 09-26-2023 Hemoglobin (Bld) [Mass/Vol] 13.1 g/dL 11.8-15.4 [facility] Nicotine [Mass/volume] in Se rum or PlasmaOrdered By: Luis Carlton on 09-26-2023 Nicotine [Mass/Vol] <1.0 ng/mL . [facility] Comment on above: This test was develo ped and its performance characteristicsdetermined by [facility]. It has not been cleared orapproved by the Food and Drug Administration.Nicotine levels greater than 2.0 are consistent with theuse of tobacco or tobacco cessation products. Vitamin D+Metabolites [Mass/ volume] in Serum or PlasmaOrdered By: Luis Carlton on 09-26-2023 Vitamin D+Metabolites [Mass/Vol] 20.9 ng/mL 30-100 [facility] Comment on above: VITAMIN D STATUS 25( [place])VITAMIN D RANGE (ng/mL) Deficient <20 Insufficient 20 to <30Sufficient 30 to 100Reference: Francis MF,Brittnee NOE, Alana ATKINSON, et al. Evaluation,treatment, and prevention of vitamin D deficiency; an Endocrine Society clinical practice guideline. JCEM. 2010; 96(7):1911-30. Wound methicillin resistant Staphylococcus aureus (MRSA) cultureOrdered By: Luis Carlton on 09-26-2023 MRSA isol Org specific cx Ql (Unsp spec) [facility] XR shoulder LT min 2V*on XR shoulder LT min 2V* [facility] [employer] Other XR shoulder LT min 2V* [facility] Alexis Bittar Other XR shoulder LT min 2V* [address] [facility] Alexis Bittar Other XR shoulder LT min 2V* [facility] [place] [address] Alexis Bittar Other XR shoulder LT min 2V* XRay Report [facility] Other XR shoulder LT min 2V* Signed [facility] Other XR shoulder LT min 2V* Patient: Nadya Kuhn MR#: [id number] [facility] Other XR shoulder LT min 2V* 1147 Alex[facility] Other XR shoulder LT min 2V* : 1955 Acct:[id number] Alexis Bittar Other XR shoulder LT min 2V* Age/Sex: 68 / F ADM Date: 07/13/23 Alexis Bittar Other XR shoulder LT min 2V* Loc: [facility] Room: Type: [facility] Alexis Bittar Other XR shoulder LT min 2V* Attending Dr: Luis Carlton II, MD [facility] Other XR shoulder LT min 2V* Copies to: Luis Carlton MD [facility] Other XR shoulder LT min 2V* Ordering Provider: Luis Carlton MD [facility] Other XR shoulder LT min 2V* Date of Service: 07/13/23 Alexis Bitt[facility] Other XR shoulder LT min 2V* XR/XR shoulder LT min 2V*: PAIN [facility] Other XR shoulder LT min 2V* 3 views LEFT shoulder plain film Alexis Bittar Other XR shoulder LT min 2V* HISTORY: Generalized LEFT shoulder pain for weeks [facility]itt[facility] Other XR shoulder LT min 2V* COMPARISON: None [facility] Other XR shoulder LT min 2V* ACUTE FINDINGS: None Alexis Bittar Other XR shoulder LT min 2V* DEGENERATIVE CHANGE: Spurring of acromioclavicular joint and glenohumeral joint. Adequate joint Alexis Bittar Other XR shoulder LT min 2V* space. Alexis Bittar Other XR shoulder LT min 2V* SOFT TISSUE FINDINGS: Unremarkable Alexis Bittar Other XR shoulder LT min 2V* JOINT EFFUSION: None Alexis Bitt[facility] Other XR shoulder LT min 2V* POSTOP CHANGES: None Alexis Bittar Other XR shoulder LT min 2V* BONY MINERALIZATION: Adequate Alexis Bittar Other XR shoulder LT min 2V* XR/XR shoulder LT min 2V* Alex[facility] Other XR shoulder LT min 2V* IMPRESSION: Degenerative change. Alex[facility] Other XR shoulder LT min 2V* Impression dictated by: Angel Luis King M.D.07/13/2023 2:02 PM [facility] Other XR shoulder LT min 2V* Dictation Location: [place] [address] Alexis Bittar Other XR shoulder LT min 2V* Transcribed By: EVERARDO 07/13/23 [facility] Alexis Bittar Other XR shoulder LT min 2V* Dictated By: Angel Luis King DO 07/13/23 [facility] Alexis Bittar Other XR shoulder LT min 2V* Signed By: Alexis Bittar Other XR shoulder LT min 2V* 07/13/23 1402 Alexis Bittar Other LIPID PROFILEon 10-27-2022 CHOL-HDL RATIO NORM SEE BELOW Normal [facility] Comment on above: Result Comment: 3.3 - 4.4 LOW RISK 4.4 - 7.1 AVERAGE RISK 7.1 - 11.0 MODERATE RISK >11.0 HIGH RISK Performed By: #### L IPID, LIVER #### [facility] [address] [address] [address] Favio Cueto Cholesterol [Mass/Vol] 168 mg/dL Normal <=200 [facility] Comment on above: Performed By: #### L IPID, LIVER #### [facility] [address] [address] [address] Favio Cueto Cholesterol in HDL [Mass/Vol] 61 mg/dL Critically high 40-60 [facility] Comment on above: Performed By: #### L IPID, LIVER #### [facility] [address] [address] [address] Favio Cueto Cholesterol in LDL [Mass/Vol] 91.4 mg/dL Normal [facility] Comment on above: Performed By: #### L IPID, LIVER #### [facility] [address] [address] [address] Favio Cueto Cholesterol.total/Cho lesterol in HDL [Mass ratio] 2.8 {ratio} Normal [facility] Comment on above: Performed By: #### L IPID, LIVER #### [facility] [address] [address] [address] Favio Cueto HDL NORMAL > or = 60 mg/dl - LO W CARDIOVASCULAR RISK <40 mg/dl - HIGH CARDIOVASCULAR RISK Normal [facility] Comment on above: Performed By: #### L IPID, LIVER #### [facility] [address] [address] [address] Favio Cueto LDL CALC NORMAL SEE BELOW Normal [facility] Comment on above: Result Comment: <100 mg/dl OPTIMAL 100 - 129 mg/dl NEAR OR ABOVE OPTIMAL 130 - 159 mg/dl BORDERLINE HIGH 160 - 189 mg/dl HIGH >190 mg/dl VERY HIGH Performed By: #### L IPID, LIVER #### [facility] [address] [address] [address] Favio Cueto Triglyceride [Mass/Vol] 78 mg/dL Normal <=150 [facility] Comment on above: Performed By: #### L IPID, LIVER #### [facility] [address] [place] [address] Dr. Favio Cueto VLDL CALC 15.6 mg/dL Normal [facility] Comment on above: Performed By: #### L IPID, LIVER #### [facility] [address] [place] [address] Dr. Favio Cueto LIVER PROFILEon 10-27-2022 Albumin [Mass/Vol] 4.3 g/dL Normal 3.4-5.0 [facility] Comment on above: Performed By: #### L IPID, LIVER #### [facility] [address] [place] [address] Dr. Favio Cueto Albumin/Globulin [Mass ratio] 1.5 {ratio} Normal [facility] Comment on above: Performed By: #### L IPID, LIVER #### [facility] [address] [place] [address] Dr. Favio Cueto ALP [Catalytic activity/Vol] 55 U/L Normal 46-116 [facility] Comment on above: Performed By: #### L IPID, LIVER #### [facility] [address] [place] [address] Dr. Favio Cueto ALT [Catalytic activity/Vol] 23 U/L Normal 14-59 [facility] Comment on above: Performed By: #### L IPID, LIVER #### [facility] [address] [place] [address] Dr. Favio Cueto AST [Catalytic activity/Vol] 15 U/L Normal 15-37 [facility] Comment on above: Performed By: #### L IPID, LIVER #### [facility] [address] [place] [address] Dr. Favio Cueto BILI, CONJUGATED 0.2 mg/dL Normal 0.0-0.2 [facility] Comment on above: Performed By: #### L IPID, LIVER #### [facility] [address] [place] [address] Dr. Favio Cueto Bilirubin [Mass/Vol] 0.7 mg/dL Normal 0.2-1.0 [facility] Comment on above: Performed By: #### L IPID, LIVER #### [facility] [address] [address] [address] Favio Cueto Globulin (S) [Mass/Vol] 2.8 g/dL Normal [facility] Comment on above: Performed By: #### L IPID, LIVER #### [facility] [address] [id number] Favio Cueto Protein [Mass/Vol] 7.1 g/dL Normal 6.4-8.2 [facility] Comment on above: Performed By: #### L IPID, LIVER #### [facility] [address] [address] [address] Favio Cueto MG MAMM SCREEN 3D ARCHIE CADon 10-27-2022 MG MAMM SCREEN 3D ARCHIE CAD Patient: NADYA KUHN Exam Date: 10/27/2022 : 1955 Gender:F Ordering : SHAIKH Rosa SANTORO . Admission #: [id number] Family : Order #: [id number] CLICK HERE TO VIEW EXAM RADIOLOGY REPORT PROCEDURE: MAMMOGRAM SCREENING 3D BILATERAL CAD COMPARISON: None. INDICATIONS: Screening mammography Calculator Name NCI Breast Cancer Risk Assessment Tool 5 Year Breast Cancer Risk 1.30% Lifetime Breast Cancer Risk 5.00% Personal Breast Cancer No Personal Ovarian Cancer No Treatments None Family Cancers None LOCATION: [facility] BREAST COMPOSITION: Heterogeneously dense,which may obscure [...] Hardy MD on 11/23/2022 at 08:22 Normal [facility] CT LUNG CANCER SCREENINGon 0 04-05-2022 [...] by: HOLLIE HARDY Date: 2022-04-05 10:37 Normal [facility] Vital Signs Date Time Vital Sign Value Performing Clinician Keri watson 10-17-2024 10:45-0400 Body height 170.2 cm Gabino Hurst [facility] 10-17-2024 10:45-0400 Body mass index (BMI) [Ratio] 20.99 kg/m2 Gabino Hurst MD [facility] 10-17-2024 10:45-0400 Body weight 60.78 kg Gabino Hurst MD [facility] 10-17-2024 10:45-0400 Diastolic blood pressure 80 mm[Hg] Gabino Hurst MD [facility] 10-17-2024 10:45-0400 Heart rate 70 /min Gabino Hurst MD [facility] 10-17-2024 10:45-0400 Systolic blood pressure 136 mm[Hg] Gabino Hurst MD [facility] 09-14-2024 10:05-0500 Body height 160.02 cm [facility] 09-14-2024 10:05-0500 Body mass index (BMI) [Ratio] 23.6 kg/m2 [facility] 09-14-2024 10:05-0500 Body temperature 97.3 [degF] [facility] 09-14-2024 10:05-0500 Body weight 60.49 kg [facility] 09-14-2024 10:05-0500 Diastolic blood pressure 70 mm[Hg] [facility] 09-14-2024 10:05-0500 Heart rate 106 /min [facility] 09-14-2024 10:05-0500 Respiratory rate 18 /min [facility] 09-14-2024 10:05-0500 SaO2% (BldA) [Mass fraction] 97 % [facility] 09-14-2024 10:05-0500 Systolic blood pressure 118 mm[Hg] [facility] 09-06-2024 13:10-0500 Body height 160 cm Billy Finch MD Work Phone: [facility] 09-06-2024 13:10-0500 Body mass index (BMI) [Ratio] 23.74 kg/m2 Billy Finch MD Work Phone: [facility] 09-06-2024 13:10-0500 Body weight 60.78 kg Billy Finch MD Work Phone: [facility] 09-06-2024 13:10-0500 Diastolic blood pressure 73 mm[Hg] Billy Finch MD Work Phone: [facility] 09-06-2024 13:10-0500 Heart rate 98 /min Billy Finch MD Work Phone: [facility] 09-06-2024 13:10-0500 Systolic blood pressure 112 mm[Hg] Billy Finch MD Work Phone: [facility] 08-29-2024 08:24-0500 Body mass index (BMI) [Ratio] 23.88 kg/m2 Tristian Bearden [employer] Work Phone: [facility] 08-29-2024 08:24-0500 Body temperature 98.71 [degF] Tristian Bearden [employer] Work Phone: [facility] 08-29-2024 08:24-0500 Body weight 61.15 kg Tristian Bearden [employer] Work Phone: [facility] 08-29-2024 08:24-0500 Diastolic blood pressure 80 mm[Hg] Tristian Bearden [employer] Work Phone: [facility] 08-29-2024 08:24-0500 Heart rate 71 /min Tristian Bearden [employer] Work Phone: [facility] 08-29-2024 08:24-0500 Respiratory rate 18 /min Tristian Bearden [employer] Work Phone: [facility] 08-29-2024 08:24-0500 SaO2% (BldA) [Mass fraction] 94 % Tristian Bearden [employer] Work Phone: [facility] 08-29-2024 08:24-0500 Systolic blood pressure 134 mm[Hg] Tristian Bearden [employer] Work Phone: [facility] 06-18-2024 08:25-0500 Body height 160 cm Tristian Bearden [employer] Work Phone: [facility] 06-18-2024 08:25-0500 Body mass index (BMI) [Ratio] 24.99 kg/m2 Tristian Bearden [employer] Work Phone: [facility] 06-18-2024 08:25-0500 Body temperature 96.91 [degF] Tristian Bearden [employer] Work Phone: [facility] 06-18-2024 08:25-0500 Body weight 64 kg Tristian Bearden [employer] Work Phone: [facility] 06-18-2024 08:25-0500 Diastolic blood pressure 72 mm[Hg] Tristian Bearden [employer] Work Phone: [facility] 06-18-2024 08:25-0500 Heart rate 69 /min Tristian Bearden [employer] Work Phone: [facility] 06-18-2024 08:25-0500 Respiratory rate 16 /min Tristian Bearden [employer] Work Phone: [facility] 06-18-2024 08:25-0500 SaO2% (BldA) [Mass fraction] 98 % Tristian Bearden [employer] Work Phone: [facility] 06-18-2024 08:25-0500 Systolic blood pressure 130 mm[Hg] Tristian Bearden [employer] Work Phone: [facility] 01-26-2024 10:55-0400 Diastolic blood pressure 72 mm[Hg] MD Shaikh Santoro Work Phone: [facility] 01-26-2024 10:55-0400 Heart rate 81 /min MD Shaikh Santoro Work Phone: [facility] 01-26-2024 10:55-0400 Respiratory rate 16 /min MD Shaikh Santoro Work Phone: [facility] 01-26-2024 10:55-0400 SaO2% (BldA) [Mass fraction] 100 % MD Shaikh Santoro Work Phone: [facility] 01-26-2024 10:55-0400 Systolic blood pressure 126 mm[Hg] MD Shaikh Santoro Work Phone: [facility] 01-26-2024 08:35-0400 Body height 160.02 cm MD Shaikh Santoro Work Phone: [facility] 01-26-2024 08:35-0400 Body weight 63.5 kg MD Shaikh Santoro Work Phone: [facility] 10-23-2023 16:00-0400 Diastolic blood pressure 68 mm[Hg] PHYSICIAN NO [facility] 10-23-2023 16:00-0400 Heart rate 68 /min PHYSICIAN NO [facility] 10-23-2023 16:00-0400 Respiratory rate 16 /min PHYSICIAN NO [facility] 10-23-2023 16:00-0400 SaO2% (BldA) [Mass fraction] 99 % PHYSICIAN NO [facility] 10-23-2023 16:00-0400 Systolic blood pressure 120 mm[Hg] PHYSICIAN NO [facility] 10-23-2023 12:33-0400 Body temperature 98.6 [degF] PHYSICIAN NO [facility] 10-23-2023 12:33-0400 Inhaled oxygen flow rate 10 L/min PHYSICIAN NO [facility] 10-23-2023 08:59-0400 Body height 160.02 cm PHYSICIAN NO [facility] 10-23-2023 08:59-0400 Body mass index (BMI) [Ratio] 23.4 kg/m2 PHYSICIAN NO [facility] 10-23-2023 08:59-0400 Body weight 60 kg PHYSICIAN NO [facility] 10-13-2023 08:41-0400 Body height 160.02 cm PHYSICIAN NO [facility] 10-13-2023 08:41-0400 Body mass index (BMI) [Ratio] 23.6 kg/m2 PHYSICIAN NO [facility] 10-13-2023 08:41-0400 Body weight 60.32 kg PHYSICIAN NO [facility] 02-17-2009 10:27-0400 Body height 170.2 cm Gabino Hurst MD [facility] 02-17-2009 10:27-0400 Body mass index (BMI) [Ratio] 21.14 kg/m2 Gabino Hurst MD [facility] 02-17-2009 10:27-0400 Body weight 61.24 kg Gabino Hurst MD Work Phone: [facility] 02-17-2009 10:270400 Diastolic blood pressure 70 mm[Hg] Gabino Hurst MD [facility] Phone: [facility] 02-17-2009 10:270400 Heart rate 100 /min Gabino Hurst MD Work Phone: [facility] [employer] 02-17-2009 10:27-0400 Systolic blood pressure 103 mm[Hg] Gabino Hurst MD Work Phone: [facility] Encounters Encounter Date Encounter Type Care Provider Facility Start: 10-17-2024 End: 10-17-2024 Office consultation new/estab patient 40 min Gabino Hurst MD Work Phone: [facility] Comment on above: Chest pain, unspecif ied type (Primary Dx) Start: 10-16-2024 End: 10-16-2024 Telephone encounter April Del Real MA [facility] Start: 10-10-2024 End: 10-10-2024 Chart abstracting Gabino Hurst MD Work Phone: [facility] Start: 10-01-2024 End: 10-01-2024 ambulatory Shaikh Maude WEBBER Work Phone: [facility] Work Phone: Start: 10-01-2024 End: 10-01-2024 Patient encounter procedure Shaikh Maude WEBBER Work Phone: [facility] Work Phone: Start: 09-14-2024 End: 09-14-2024 ambulatory [facility] Work Phone: Start: 09-14-2024 End: 09-14-2024 Patient encounter procedure [facility] Work Phone: Start: 09-06-2024 End: 02-07-2025 Annika Searsmis MD Work Phone: [facility] Start: 09-06-2024 End: 09-06-2024 Bamboo flowsheet Billy Finch MD Work Phone: [facility] Start: 09-06-2024 End: 09-06-2024 Office outpatient new 30 minutes Billy Finch MD Work Phone: [facility] Comment on above: Tonsillar tag Start: 09-06-2024 End: 09-06-2024 ambulatory BILLY FINCH Not Available Start: 09-05-2024 End: 09-05-2024 Orders Only Tristian Bearden [employer] Work Phone: [facility] Comment on above: Coronary artery calc ification seen on CAT scan (CMS/HCC) Start: 08-29-2024 End: 08-29-2024 Bamboo flowsheet Tristian Gomezzpatrick [employer] Work Phone: [facility] Start: 08-29-2024 End: 08-29-2024 Bamboo flowsheet Tristian Bearden [employer] Work Phone: [facility] Start: 08-29-2024 End: 08-29-2024 Office outpatient visit 15 minutes Tristian Holttrick [employer] Work Phone: [facility] Comment on above: 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 Comment on above: Hyperlipidemia, unsp ecified; Family history of ischemic heart disease and other diseases of the circulatory system; Elevated blood-pressure reading, without diagnosis of hypertension Start: 08-26-2024 End: 08-26-2024 ambulatory NATALIA IRENE [facility] Start: 08-22-2024 End: 08-22-2024 Refill Dede Dixon MA [facility] Comment on above: Hyperlipidemia, unsp ecified hyperlipidemia type (CMS/HCC) Start: 06-18-2024 End: 06-18-2024 Bamboo flowsheet Tristian Bearden [employer] Work Phone: [facility] Start: 06-18-2024 End: 06-18-2024 Bamboo flowsheet Tristian Bearden [employer] Work Phone: [facility] Start: 06-18-2024 End: 06-18-2024 Office outpatient visit 15 minutes Tristian Holttrick [employer] Work Phone: [facility] Comment on above: Hyperlipidemia, unsp ecified hyperlipidemia type (CMS/HCC) (Primary Dx); Family history of CHF (congestive heart failure); Family history of abdominal aortic aneurysm (AAA); Family history of heart disease Start: 06-18-2024 End: 06-18-2024 ambulatory TRISTIAN BEARDEN Not Available Start: 01-30-2024 End: 01-30-2024 ambulatory MD Shaikh Santoro Work Phone: [facility] Work Phone: Start: 01-30-2024 End: 01-30-2024 Patient encounter procedure MD Shaikh Santoro Work Phone: [facility] Work Phone: Start: 01-29-2024 Non-patient / Non-visit MD Rubio Santoro Work Phone: [facility] Work Phone: Start: 01-26-2024 Non-patient / Non-visit MD Rubio Santoro Work Phone: [facility] Work Phone: Start: 01-26-2024 End: 01-26-2024 Admission to same day surgery center MD Shaikh Santoro Work Phone: [facility] Work Phone: Start: 01-26-2024 End: 01-26-2024 ambulatory MD Shaikh Santoro Work Phone: [facility] Work Phone: Start: 12-27-2023 End: 12-27-2023 ambulatory SHAIKH MAUDE Not Available Start: 12-14-2023 End: 12-14-2023 ambulatory NEETA ANGELA Not Available Start: 12-06-2023 End: 12-06-2023 ambulatory PHYSICIAN NO [facility] Work Phone: Start: 12-06-2023 End: 12-06-2023 Patient encounter procedure PHYSICIAN NO [facility] Work Phone: Start: 11-08-2023 End: 11-08-2023 ambulatory PHYSICIAN NO [facility] Work Phone: Start: 11-08-2023 End: 11-08-2023 Patient encounter procedure PHYSICIAN NO [facility] Work Phone: Start: 10-23-2023 End: 10-23-2023 Admission to same day surgery center PHYSICIAN NO [facility] [place] Start: 10-23-2023 End: 10-23-2023 ambulatory PHYSICIAN NO [facility] Work Phone: Start: 10-23-2023 Non-patient / Non-visit PHYSICIAN NO [facility] Work Phone: Start: 10-13-2023 Registered Recurring PHYSICIAN NO [facility] [place] Start: 10-13-2023 Encounter for other preprocedural examination Luis Carlton II [facility] Start: 10-13-2023 End: 10-13-2023 ambulatory PHYSICIAN NO [facility] Work Phone: Start: 10-13-2023 End: 10-13-2023 Patient encounter procedure PHYSICIAN NO [facility] Work Phone: Start: 10-12-2023 End: 10-12-2023 ambulatory SHAIKH ANGELD Not Available Start: 10-10-2023 End: 10-10-2023 Patient encounter procedure PHYSICIAN NO [facility] [employer] Work Phone: Start: 10-10-2023 End: 10-10-2023 ambulatory Luis M [place] II Facility:[facility] Start: 10-03-2023 Preoperative state Tristian talbert [employer] Work Phone: [facility] [employer] Start: 10-03-2023 End: 10-03-2023 ambulatory SHAIKH EHWAD Not Available Start: 09-26-2023 End: 09-26-2023 Patient encounter procedure PHYSICIAN NO [facility] [place] Work Phone: Start: 09-21-2023 End: 09-21-2023 ambulatory FARemyWAD Not Available Start: 08-23-2023 End: 08-23-2023 ambulatory Luis Bradnt II Other Alexis Bittar Other Start: 08-23-2023 Office outpatient vi sit 40 minutes Luis Brandt II [facility] Start: 08-08-2023 Patient encounter procedure Tristian Bearden [employer] Work Phone: [facility] [employer] Start: 07-13-2023 End: 07-13-2023 ambulatory Luis Lexington II Other Alexis Bittar Other Start: 07-13-2023 Office outpatient vi sit 25 minutes Luis Brandt II [facility] Start: 07-10-2023 End: 07-10-2023 ambulatory Luis Brandt II Other Alexis Bittar Other Start: 07-10-2023 Telephone encounter [facility] Start: 05-12-2023 End: 05-12-2023 ambulatory MD Luis Carlton II Work Phone: [facility] Work Phone: Start: 05-12-2023 End: 05-12-2023 Patient encounter procedure MD Luis Carlton II Work Phone: [facility] Start: 10-27-2022 End: 10-28-2022 ambulatory SHAIKH Trino SANTORO Facility:[facility] Start: 04-05-2022 End: 04-06-2022 ambulatory SHAIKH Trino SANTORO Facility: Procedures Date Procedure Procedure Detail Performing Clinician Start: 10-01-2024 Plain X-ray of bilat eral wrists Shaikh Maude WEBBER Work Phone: Start: 01-26-2024 End: 01-26-2024 Colonoscopy MD Shaikh Santoro Work Phone: Start: 01-16-2024 Colonoscopy Tristian smith [employer] Work Phone: Start: 12-06-2023 Plain X-ray of left hip PHYSICIAN NO FAMILY Start: 11-29-2023 Mammography Tristian smith [employer] Work Phone: Start: 10-23-2023 Plain X-ray of left hip PHYSICIAN NO FAMILY Start: 10-23-2023 Total replacement of left hip joint PHYSICIAN NO FAMILY Start: 10-23-2023 Plain X-ray of left hip PHYSICIAN NO FAMILY Start: 10-10-2023 Antibody screen Shaikh Maude Comment on above: Order Comment: Date of Surgery: [id number] Result Comment: PERF ORMED BY: [facility] [address] [place] [address] PATHOLOGIST ORTHOTICS TECHNICIAN SAMANTHA PEREZ M.D. Start: 09-26-2023 Methicillin resistan t Staphylococcus aureus culture PHYSICIAN NO FAMILY Start: 05-12-2023 Plain X-ray of left hip MD Luis Carlton II Work Phone: Start: 05-12-2023 Radiologic examinati on of knee MD Luis Carlton II Work Phone: Plan of Treatment Date Care Activity Detail Author Start: 01-25-2034 Screening for malign ant neoplasm of colon [facility] Start: 01-25-2027 Screening for malign ant neoplasm of colon [facility] Start: 01-15-2027 Screening for malign ant neoplasm of colon [facility] Start: 10-17-2025 Adult BMI Screening Adult BMI Screen ing [facility] Start: 06-21-2025 Screening for malign ant neoplasm of colon FIT-DNA [facility] Start: 01-27-2025 Influenza vaccination Influenza Vacc ine (#1) [facility] Comment on above: Postponed from 03/31 (Patient Refused) Start: 12-19-2024 End: 12-19-2024 Patient encounter procedure 12/19/2024 9:00 AM EDT Office Visit [facility] [address] [place] [address] Tristian Bearden, JONI [address] [place] [address] [facility] Start: 12-13-2024 Medicare Annual Well ness (AWV) Medicare Annual Wellness (AWV) [facility] Start: 11-28-2024 Screening for malign ant neoplasm of breast Mammogram [facility] Start: 10-17-2024 End: 10-17-2025 CTA Heart and Coronary arteries WO and W contrast IV CT angiogram coronary arteries with or without scoring Imaging Routine Chest Pain, Unspecified Type Expected: 10/17/2024, Expires: 10/17/2025 [facility] Comment on above: Expected: 10/17/2024 , Expires: 10/17/2025 Start: 10-17-2024 End: 10-17-2024 Patient encounter procedure 10/17/2024 11:00 AM EDT Office Visit [facility] [address] [place] [phone] Gabino Hurst MD [address] [place] [phone] [facility] Start: 10-07-2024 End: 10-07-2024 Patient encounter procedure 10/07/2024 8:00 AM EDT Office Visit [facility] [address] [place] [phone] Tristian Bearden NP [address] [place] [address] [facility] Start: 10-01-2024 Plain X-ray of bilat eral wrists XR wrist min BI 3V [facility] Start: 10-01-2024 XR Wrist - bilateral GE 3 Views [facility] Start: 09-06-2024 End: 09-06-2024 Patient encounter procedure [facility] Comment on above: 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 Start: 08-29-2024 End: 08-29-2024 Patient encounter procedure 08/29/2024 8:30 AM EST Office Visit [facility] [address] [place] [phone] Tristian Bearden, JONI [address] [place] [address] Arrived [facility] Comment on above: Arrived Start: 08-08-2024 Pneumococcal Vaccine : 65+ Years (1 of 2 - PCV) Pneumococcal Vaccine: 65+ Years (1 of 2 - PCV) [facility] Comment on above: Postponed from 01/28 (Patient Refused) Start: 06-18-2024 End: 06-18-2024 Patient encounter procedure 06/18/2024 8:30 AM EST Office Visit [facility] [address] [place] [address] Tristian Bearden, JONI [address] [facility] [place] [address] Arrived [facility] Comment on above: Arrived Start: 03-31-2024 COVID-19 Vaccine ( season) COVID-19 Vaccine ( season) [facility] Start: 03-31-2024 Influenza vaccination N [facility] Start: 01-26-2024 [facility] Start: 12-06-2023 Plain X-ray of left hip XR hip LT min 2V(w/wo pelvis)* [facility] Start: 12-06-2023 XR Hip - left 2 Views [facility] Start: 10-23-2023 End: 10-23-2023 [facility] Start: 2022 Fall Risk Screening Fall Risk Screen ing [facility] Start: 2017 RSV High Risk: (Elde rly (60+) or Population) (1 - Risk 60-74 years 1-dose series) RSV High Risk: (Elderly (60+) or Population) (1 - Risk 60-74 years 1-dose series) [facility] Start: 2007 Administration of varicella zoster vaccine Zoster (Shingles) Vaccine (1 of 2) [facility] Start: 2007 Zoster Vaccines (1 of 2) Zoste r Vaccines (1 of 2) [facility] Start: 1997 Screening for malign ant neoplasm of breast Mammogram [facility] Start: 1979 DTaP/Tdap/Td Vaccine s (1 - Tdap) DTaP/Tdap/Td Vaccines (1 - Tdap) [facility] Start: 01-29-1976 DTaP,Tdap and Td Vac cines (1 - Tdap) DTaP,Tdap and Td Vaccines (1 - Tdap) [facility] Start: 01-29-1976 Pneumococcal vaccination Pneum ococcal Vaccine (1 of 2 - PCV) [facility] Start: 1975 Adult BMI Screening Adult BMI Screen ing [facility] Start: 1975 Hepatitis C screening Hepatitis C Sc reening [facility] Start: 1969 Depression Screening Depression Scre ening [facility] Start: 1969 Tobacco Screening Tobacco Screening [facility] Start: 1963 Pneumococcal Vaccine : 65+ Years (1 of 2 - PCV) Pneumococcal Vaccine: 65+ Years (1 of 2 - PCV) [facility] Start: 1957 Lipid panel Lipid Panel [facility] Start: 1957 Medicare Annual Well ness Visit Medicare Annual Wellness Visit (AWV) [facility] Start: 1957 Screening for malign ant neoplasm of colon [facility] Start: 1957 Screening for osteoporosis Bone Density Scan [facility] End: 10-17-2025 Creatinine includes GFR, serum Creatinine includes GFR, serum Lab Routine Chest pain, unspecified type 1 Occurrences starting 10/17/2024 until 10/17/2025 [facility] Comment on above: 1 Occurrences starti ng 10/17/2024 until 10/17/2025 End: 08-26-2024 CT for calcium scoring WO contrast and CTA W contrast IV Heart and coronary arteries [facility] Service [facility] Work Phone: Comment on above: Once for 1 Occurrenc es starting 08/26/2024 until 08/26/2024 ECG, Hospital Report Scan ECG, H ospital Report Scan ECG Routine Chest Pain, Unspecified Type Ordered: 10/17/2024 [facility] Work Phone: Comment on above: Ordered: 10/17/2024 Patient Education Colon Polypect ginna (DC) Know your [facility] Work Phone: Immunizations Immunization Date Immunization Notes Care Provider Sophia hawk 03-07-2021 COVID-19 mRNA, Comirnaty (Pfizer) PHYSICIAN NO [facility] 02-14-2021 COVID-19 mRNA, Comirnaty (Pfizer) PHYSICIAN NO [facility] Payers Date Payer Category Payer Medicare HMO [id number] 2023 Self-pay 2023 Medicare (Managed Care) [id number] 2023 Private Health Insurance [id number] 2023 Private Health Insurance [id number] 2021 Medicare [id number] 1959 Medicare [id number] 1957 Unknown [id number] 2.16.84 [id number] 1957 Unknown [id number] 2.16.84 [id number] 1957 Unknown [id number] 2.16.8 40.1.560581.3.579.2.1246 1957 Unknown [id number] 2.16.84 0.1.514395.3.579.2.9 1957 Unknown [id number] 2.16.84 0.1.900266.3.579.2.1259 1957 Unknown [id number] 2.16.84 0.1.162666.3.579.2.1259 1957 Unknown [id number] 2.16.84 0.1.756549.3.579.2.1259 1957 Unknown [id number] 2.16.84 0.1.366895.3.579.2.9 1957 Unknown [id number] 2.16.84 0.1.647576.3.579.2.1259 1957 Unknown [id number] 2.16.84 0.1.068870.3.579.2.1259 1957 Unknown [id number] 2.16.84 0.1.011538.3.579.2.1259 Unknown [id number] 2.16.8 40.1.658836.3.579.2.531 Unknown [id number] 2.16.8 40.1.626311.3.579.2.531 Unknown [id number] 2.16.8 40.1.168011.3.579.2.531 Unknown [id number] 2.16.8 40.1.838040.3.579.2.531 Unknown [id number] 2.16.8 40.1.308654.3.579.2.531 Unknown [id number] 2.16.8 [id number] Social History Date Type Detail Facility Tobacco smoking stat us [facility] Unknown if ever smoked [facility] Work Phone: Start: 1955 Sex Assigned At Female F [facility] Start: 06-11-2024 End: 10-17-2024 Sex Assigned At [facility] Start: 10-10-2023 End: 01-26-2024 Tobacco smoking status [facility] Ex-smoker (finding) [facility] Start: 03-20-2003 End: 03-20-2018 History of tobacco use Current smoker [facility] Start: 03-20-2003 End: 03-20-2018 History of tobacco use Cigarette Smoker [facility] Start: 12-14-2023 End: 10-17-2024 Cigarettes smoked current (pack per day) - Reported 1 [facility] History of tobacco use Passive smoker [facility] Start: 12-14-2023 End: 09-06-2024 Tobacco use and exposure Smokeless tobacco non-user [facility] Start: 12-27-2023 End: 09-06-2024 Alcoholic beverage intake Current drinker of alcohol (finding) [facility] How often do you nee d to have someone help you when you read instructions, pamphlets, or other written material from your doctor or pharmacy [SILS] Never [facility] Do you belong to any clubs or organizations such as hindu groups, unions, fraternal or athletic groups, or school groups? Yes [facility] Are you now , , , , never or living with a partner? [facility] How often to you hav e a drink containing alcohol? 4 or more times a week [facility] How many standard drinks containing alcohol do you have on a typical day? 1 or 2 [facility] How often do you hav e 6 or more drinks on 1 occasion? Never [facility] How hard is it for y ou to pay for the very basics like food, housing, medical care, and heating Not very hard [facility] Do you feel stress - tense, restless, nervous, or anxious, or unable to sleep at night because your mind is troubled all the time - these days [OSQ] To some extent [facility] (I/We) worried whemarcela er (my/our) food would run out before (I/we) got money to buy more. Never true [facility] In the past 12 month s, was there a time when you were not able to pay the mortgage or rent on time? No [facility] Start: 09-21-2023 Alcohol Comment OCCASSIONAL [facility] Start: 1955 Sex assigned at Not on file [facility] Tobacco smoking stat [facility] Tobacco smoking consumption unknown [facility] Work Phone: Start: 08-16-2024 End: 08-26-2024 Exposure to SARS-CoV-2 (event) Unable to assess [facility] Start: 03-03-2015 End: 09-14-2024 Sex Female (finding) [facility] NEGATED: Highlighted row [facility] Medical Equipment Procedure Code Equipment Code Equipment Origin al Text Equipment Identifier Dates Arthroplasty, hip, total, anterior approach Acetabular shell [id number] FDA Start: 10-23-2023 Arthroplasty, hip, total, anterior approach Ceramic femoral head prosthesis [id number] FDA Start: 10-23-2023 Arthroplasty, hip, total, anterior approach Coated hip femur prosthesis, modular [id number] [facility] Start: 10-23-2023 Arthroplasty, hip, total, anterior approach Non-constrained polyethylene acetabular liner [id number] [facility] Start: 10-23-2023 Goals Date Patient Goal Desired Activity /State Clinical Notes 07-10-2023 to 10-17-2024 Gabino Hurst MD - 10/17/2024 11:00 AM EDTTelephone Encounter - April Del Real MA - 10/16/2024 2:00 PM EDTTelephone Encounter - April Del Real MA - 10/16/2024 2:00 PM EDT Note Date & Type Note Facility 10-17-2024 History of Presen t illness Narrative Nadya Kuhn Date of visit: 10/17/2024 Date of : 1955 Age: 69 y.o. There is no problem list on file for this patient. No Known Allergies Current Outpatient Medications Medication Sig Dispense Refill hydrOXYzine (ATARAX) 25 mg tablet Take 1 tablet (25 mg total) by mouth every 8 (eight) hours as needed. magnesium oxide (MAGOX) 400 mg tablet Take 1 tablet (400 mg total) by mouth in the morning. naproxen (EC NAPROSYN) 375 MG tablet,delayed release (DR/EC) EC tablet Take 500 mg by mouth 2 (two) times a day as needed for pain. rosuvastatin (CRESTOR) 20 mg tablet Take 1 tablet (20 mg total) by mouth in the morning. No current facility-administered medications for this visit. Chief Complaint Patient presents with New Patient Hyperlipidemia Chest Pain History of Present Illness Patient concerned because of family history and episodes of chest discomfort she has had this prior several years ago more of a heaviness year upper chest comes and goes can be related to stress physically it is not particularly reproducible no lightheadedness no syncope near syncope she has a history of a false-positive stress test prior she says Past Medical History: Diagnosis Date Arthritis No data recorded No data recorded No data recorded Past Surgical History: Procedure Laterality Date BACK SURGERY SECTION TONSILLECTOMY TOTAL HIP ARTHROPLASTY Right 2017 TOTAL HIP ARTHROPLASTY Left 2023 TUBAL LIGATION Family History Problem Relation Age of Onset Hyperlipidemia Mother Hypertension Father Hyperlipidemia Father Heart disease Maternal Grandmother Heart disease Maternal Grandfather Social History Socioeconomic History Marital status: Spouse name: Not on file Number of children: Not on file Years of education: Not on file Highest education level: Not on file Occupational History Not on file Tobacco Use Smoking status: Not on file Smokeless tobacco: Not on file Substance and Sexual Activity Alcohol use: Not on file Drug use: Not on file Sexual activity: Not on file Other Topics Concern Not on file Social History Narrative Not on file Social Drivers of Health Financial Resource Strain: Low Risk (06/11/2024) Received from [facility] Overall Financial Resource Strain (CARDIA) Difficulty of Paying Living Expenses: Not very hard Food Insecurity: No Food Insecurity (10/17/2024) Hunger Screening Food Insecurity - Worry: Never True Food Insecurity - Inability: Never True Transportation Needs: No Transportation Needs (06/11/2024) Received from [facility] PRAPARE - Transportation Lack of Transportation (Medical): No Lack of Transportation (Non-Medical): No Physical Activity: Insufficiently Active (06/11/2024) Received from [facility] Exercise Vital Sign Days of Exercise per Week: 3 days Minutes of Exercise per Session: 20 min Stress: Stress Concern Present (06/11/2024) Received from [facility] [place] [facility] - Occupational Stress Questionnaire Feeling of Stress : To some extent Social Connections: Moderately Isolated (06/11/2024) Received from [facility] Social Connection and Isolation Panel [NHANES] Frequency of Communication with Friends and Family: More than three times a week Frequency of Social Gatherings with Friends and Family: More than three times a week Attends [employer] Services: Never Active Member of Clubs or Organizations: Yes Attends Club or Organization Meetings: More than 4 times per year Marital Status: Interpersonal Safety: Not on file Housing Instability: Low Risk (06/11/2024) Received from [facility] Housing Stability Vital Sign Unable to Pay for Housing in the Last Year: No Number of Times Moved in the Last Year: 0 Homeless in the Last Year: No Review of Systems Review of Systems Constitutional: Negative for chills, fever and malaise/fatigue. HENT: Negative for hearing loss, hoarse voice and nosebleeds. Eyes: Negative for blurred vision, double vision and redness. Respiratory: Negative for shortness of breath and sleep disturbances due to breathing. Endocrine: Negative for cold intolerance and heat intolerance. Hematologic/Lymphatic: Negative for bleeding problem. Does not bruise/bleed easily. Skin: Negative for color change, flushing, itching and nail changes. Musculoskeletal: Negative for falls, joint pain, joint swelling and myalgias. Gastrointestinal: Negative for heartburn, hematochezia and melena. Genitourinary: Negative for dysuria, frequency and hematuria. Neurological: Negative for dizziness, focal weakness, light-headedness, loss of balance and weakness. Psychiatric/Behavioral: Negative for altered mental status and memory loss. CARDIOVASCULAR: Please review HPI. Physical Examination General appearance: Alert, oriented and cooperative. In no acute distress. Skin: Warm and dry to touch. Head: Normocephalic, without obvious abnormality, atraumatic. Ears, Nose, Mouth, Throat: Throat clear without erythema or exudate. Dentition intact. Eyes: Conjunctivae unremarkable, EOM intact. Neck: No JVD, No carotid bruit. Neck supple, trachea midline. Respiratory: Clear to auscultation bilaterally, no use of accessory muscles. Cardiovascular: RRR with normal S1 and S2 with no murmurs. Gastrointestinal: Soft, non-tender. Bowel sounds normal. Musculoskeletal: No peripheral edema. Neurologic: Oriented to time, person and place, affect appropriate. No focal/major motor defects noted. Psychiatric: Appropriate mood, memory and judgement. VITAL SIGNS: BP 136/80 Pulse 70 Ht 170.2 cm (5' 7 ) Wt 60.8 kg (134 lb) BMI 20.99 kg/m Orders Placed or Reconciled This Encounter Medications rosuvastatin (CRESTOR) 20 mg tablet Sig: Take 1 tablet (20 mg total) by mouth in the morning. hydrOXYzine (ATARAX) 25 mg tablet Sig: Take 1 tablet (25 mg total) by mouth every 8 (eight) hours as needed. magnesium oxide (MAGOX) 400 mg tablet Sig: Take 1 tablet (400 mg total) by mouth in the morning. naproxen (EC NAPROSYN) 375 MG tablet,delayed release (DR/EC) EC tablet Sig: Take 500 mg by mouth 2 (two) times a day as needed for pain. There are no discontinued medications. IMPRESSIONS/PLAN There are no diagnoses linked to this encounter. 69-year-old with atypical chest discomfort with prior false-positive stress testing. Family history of coronary disease Plan for CT angiogram of the coronaries to rule out any significant coronary disease TODAYS ORDERS No orders of the defined types were placed in this encounter. FOLLOW UP No follow-ups on file. PCP: ROGELIO COLEMAN MD Referring Physician: Tristian Bearden, LOG POND WORKER-GATE GUARD [address] [place] [address] documented in this encounter [facility] 10-16-2024 Miscellaneous Notes Formattin g of this note might be different from the original. Called patient to remind them to bring their most current copy of their medication list with them to their appt. Phone # has been disconnected or changed. JLW documented in this encounter [facility] 10-16-2024 Telephone encount er Note Called patient to remind them to bring their most current copy of their medication list with them to their appt. Phone # has been disconnected or changed. JLW [facility] 09-14-2024 Evaluation note Diagnosis Onset Date Resolution Influenza A noneactive August 9:49am Arthritis of carpometacarpal (CMC) joint of both thumbs acute October 01, 2024 10:20am Right carpal tunnel syndrome acute October 01, 2024 10:20am [facility] Work Phone: [phone]) 422-194702-07-2025 History of Present illness Narrative* Billy Finch MD - 09/06/2024 1:10 PM EST Subjective Patient ID: Nadya Kuhn is a 69 y.o. 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 Review of Systems All other systems reviewed and are negative. Family History Problem Relation Name Age of Onset Hyperlipidemia Mother Mary Hypertension Mother Mary Rheum arthritis Mother Mary Osteoarthritis Mother Mary Heart failure Mother Mary Hyperlipidemia Father Bill Hypertension Father Bill Hyperlipidemia Brother Bill Hypertension Brother Bill Active Ambulatory Problems Diagnosis Date Noted Medicare annual wellness visit, subsequent 08/08/2023 Hyperlipidemia (CMS/HCC) 08/08/2023 Arthritis of left hip 08/08/2023 Arthritis of left knee 08/08/2023 Screening mammogram, encounter for 08/08/2023 Encounter for screening for lung cancer 08/08/2023 Osteoarthritis of hip 09/21/2023 Left sided colitis with rectal bleeding (CMS/[facility]) 09/21/2023 Pre-operative clearance 10/03/2023 Centrilobular emphysema ([facility]) 10/03/2023 S/P hip replacement, left 12/27/2023 Psychophysiological insomnia 12/27/2023 Hair thinning 12/27/2023 Stress and adjustment reaction ([facility]) 12/27/2023 Family history of heart disease 06/18/2024 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 Resolved Ambulatory Problems Diagnosis Date Noted No Resolved Ambulatory Problems Past Medical History: Diagnosis Date Allergic rhinitis Arthritis Blood pressure elevated without history of HTN Colitis Dental disease HLD (hyperlipidemia) ([facility]) Screening for lung cancer Sleep difficulties Past Surgical History: Procedure Laterality Date SECTION, LOW TRANSVERSE 1987 SECTION, LOW TRANSVERSE 1989 TONSILLECTOMY 1960 TOTAL HIP ARTHROPLASTY Bilateral TUBAL LIGATION No Known Allergies Current Outpatient Medications on File Prior to Visit Medication Sig Dispense Refill hydrOXYzine HCl (Atarax) 25 MG tablet Take 1 tablet (25 mg) by mouth every 8 (eight) hours if needed for itching 90 tablet 0 rosuvastatin (Crestor) 20 MG tablet Take 1 tablet (20 mg) by mouth in the morning. 90 tablet 1 No current facility-administered medications on file prior to visit. Objective Last Recorded Vitals Vitals: 09/06/24 1310 BP: 112/73 Pulse: 98 ENT Physical Exam Constitutional Appearance: patient appears well-developed, well-nourished and well-groomed, Head and Face Appearance: head appears normal and face appears atraumatic; Ear Ear Canals: right ear canal normal; left ear canal normal; Tympanic Membranes: right tympanic membrane normal; left tympanic membrane normal; Nose External Nose: nares patent bilaterally; external nose normal; Internal Nose: septum normal; Oral Cavity/Oropharynx Tongue: normal; Oral mucosa: normal; Hard palate: normal; Soft palate: normal; OC/OP comments: RT tonsil fossa tonsil tag Neck Neck: neck normal; neck palpation normal; Thyroid: thyroid normal; Respiratory Inspection: breathing unlabored; normal breathing rate; Auscultation: breath sounds are clear; Cardiovascular Inspection: extremities are warm and well perfused; no peripheral edema present; Auscultation: regular rate and rhythm; Assessment/Plan Diagnoses and all orders for this visit: Tonsillar tag - Ambulatory referral to ENT Pt appears to have a benign tonsil tag. 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 They observed a suspicious lesion to R side ofthroat/near back of tongue. Pt reports area is painless, she cannot feel it, throat is NOT sore. Denies difficulty swallowing, voice changes, etc. I was unable to observe area visually in office today, however she reports the dentist did take a photo of the area. I will call and request images from her chart. Pt is very concerned regarding this as her recently from cancer a few months ago, and two of her friends currently have cancer. She requesting referral to ENT for further evaluation. Referral sent to Dr. Finch. Advised pt if she develops difficulty breathing, swallowing, severe pain, report to nearest emergency room. * Tristian Bearden NP - 08/29/2024 8:30 AM EST Images from the original note were not included. Subjective Patient ID: Nadya Kuhn is a 69 y.o. female who presents for Sore Throat. HPI Was at the dentist for routine cleaning 2 weeks ago. They observed a suspicious lesion to R side ofthroat/near back of tongue. Pt reports area is painless, she cannot feel it, throat is NOT sore. Denies difficulty swallowing, voice changes, etc. I was unable to observe area visually in office today, however she reports the dentist did take a photo of the area. I will call and request images from her chart. Pt requesting referral to ENT for further evaluation. Review of Systems Constitutional: Negative for activity change, appetite change, chills, diaphoresis, fatigue, fever and unexpected weight change. HENT: Negative for congestion, ear pain, rhinorrhea, sinus pressure, sinus pain, sneezing, sore throat, trouble swallowing and voice change. Lesion in back of throat Eyes: Negative for visual disturbance. Respiratory: Negative for cough, chest tightness, shortness of breath and wheezing. Cardiovascular: Negative for chest pain, palpitations and leg swelling. Gastrointestinal: Negative for abdominal distention, abdominal pain, blood in stool, constipation, diarrhea and vomiting. Genitourinary: Negative for decreased urine volume, dysuria, flank pain, frequency, hematuria and urgency. Musculoskeletal: Negative for arthralgias, gait problem, joint swelling and myalgias. Skin: Negative for rash. Neurological: Negative for dizziness, tremors, syncope, weakness, light- headedness and headaches. Psychiatric/Behavioral: Negative for decreased concentration and suicidal ideas. The patient is nervous/anxious. Hematological: Does not bruise/bleed easily. Endocrine: Negative for cold intolerance, heat intolerance, polydipsia, polyphagia and polyuria. Objective Physical Exam Constitutional: Appearance: Normal appearance. HENT: Head: Normocephalic. Right Ear: External ear normal. Left Ear: External ear normal. Nose: Nose normal. Mouth/Throat: Mouth: Mucous membranes are moist. Pharynx: Oropharynx is clear. Eyes: Pupils: Pupils are equal, round, and reactive to light. Cardiovascular: Rate and Rhythm: Normal rate and regular rhythm. Pulses: Normal pulses. Pulmonary: Effort: Pulmonary effort is normal. Breath sounds: Normal breath sounds. Abdominal: General: Abdomen is flat. Bowel sounds are normal. Palpations: Abdomen is soft. Musculoskeletal: General: Normal range of motion. Cervical back: Normal range of motion. Skin: General: Skin is warm. Capillary Refill: Capillary refill takes less than 2 seconds. Neurological: Mental Status: She is alert and oriented to person, place, and time. Psychiatric: Mood and Affect: Mood normal. Behavior: Behavior normal. 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 They observed a suspicious lesion to R side ofthroat/near back of tongue. Pt reports area is painless, she cannot feel it, throat is NOT sore. Denies difficulty swallowing, voice changes, etc. I was unable to observe area visually in office today, however she reports the dentist did take a photo of the area. I will call and request images from her chart. Pt is very concerned regarding this as her recently from cancer a few months ago, and two of her friends currently have cancer. She requesting referral to ENT for further evaluation. Referral sent to Dr. Finch. Advised pt if she develops difficulty breathing, swallowing, severe pain, report to nearest emergency room. Relevant Orders Ambulatory referral to ENT Other Visit Diagnoses Anxiety Relevant Medications hydrOXYzine HCl (Atarax) 25 MG tablet documented in this encounterWright [facility] [id number] History of Present illness Narrative* Tristian Bearden NP - 06/18/2024 9:21 AM ESTAssociated Problem(s): Family history of heart disease Strong family history of heart disease; Mom and grandmother. Afib, CHF. 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 Had Cardiac Cath in 2008- unremarkable Pt was still a 1ppd smoker at that time. Quit in 2017. Would like Coronary Artery Calcium Scoring done. Provided pt with information and order. * Tristian Bearden NP - 06/18/2024 9:20 AM ESTAssociated Problem(s): Hyperlipidemia (CMS/HCC) Currently taking Rosuvastatin 20mg Denies any myalgias. Continue current regimen. Reports she quit drinking liquor in 09/2023 Now drinks only a light beer on occasion. * Tristian Bearden NP - 06/18/2024 8:30 AM EST Images from the original note were not included. Subjective Patient ID: Nadya Kuhn is a 69 y.o. female who presents for Follow-up and Hyperlipidemia. Hyperlipidemia Pertinent negatives include no chest pain, myalgias or shortness of breath. a few months ago from cancer, mom this past year as well as ex . Pt reports she experienced significant loss recently, and does have concerns about ensuring she is healthy and taking all of the right steps to ensure a life of longevity. Strong family history of heart disease; Mom and grandmother. Afib, CHF. 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 Had Cardiac Cath in 2008- unremarkable Pt was still a 1ppd smoker at that time. Quit in 2017. Would like Coronary Artery Calcium Scoring done. Provided pt with information and order. HLD: Currently taking Rosuvastatin 20mg Denies any myalgias. Continue current regimen. Reports she quit drinking liquor in 09/2023 Now drinks only a light beer on occasion. Component Ref Range & Units 5 mo ago (01/15/24) 6 mo ago (12/14/23) 9 mo ago (08/28/23) 9 mo ago (08/28/23) 9 mo ago (08/28/23) TRIGLYCERIDES <=150 mg/dL 133 Note R, CM 114 140 R 43.6 R CHOLESTEROL <=200 mg/dL 180 258 High 4.2 R 0.2 R HDL CHOLESTEROL 40 - 60 mg/dL 67 High 74 High CM 13.0 R 2.3 R Comment: > or =60 mg/dl - LOW CARDIOVASCULAR RISK <40 mg/dl - HIGH CARDIOVASCULAR RISK LDL CHOLESTEROL CALCULATED mg/dL 87.0 162.0 CM 93 R 2.2 R Comment: <100 mg/dl OPTIMAL 100-129 mg/dl NEAR OR ABOVE OPTIMAL 130-159 mg/dl BORDERLINE HIGH 160-189 mg/dl HIGH >190 mg/dl VERY HIGH VLDL CHOLESTEROL mg/dL 26.6 22.8 0.6 R 0.4 R CHOL HDL RATIO 2.7 3.5 CM 14 Low R 0.01 R Comment: 3.3 - 4.4 LOW RISK 4.4 - 7.1 AVERAGE RISK 7.1 - 11.0 MODERATE RISK >11.0 HIGH RISK ALANINE AMINOTRANSFERASE 26 R ALKALINE PHOSPHATASE 81 R TOTAL PROTEIN 7.2 R ALBUMIN LEVEL 4.1 R ALBUMIN GLOBULIN RATIO 1.3 Resulting Agency [facility] UTD on all screenings. Will repeat labs/testing in 07/2024. Review of Systems Constitutional: Negative for activity change, appetite change, chills, diaphoresis, fatigue, fever and unexpected weight change. HENT: Negative for congestion, ear pain, rhinorrhea, sinus pressure, sinus pain, sneezing, sore throat, trouble swallowing and voice change. Eyes: Negative for visual disturbance. Respiratory: Negative for cough, chest tightness, shortness of breath and wheezing. Cardiovascular: Negative for chest pain, palpitations and leg swelling. Gastrointestinal: Negative for abdominal distention, abdominal pain, blood in stool, constipation, diarrhea and vomiting. Genitourinary: Negative for decreased urine volume, dysuria, flank pain, frequency, hematuria and urgency. Musculoskeletal: Negative for arthralgias, gait problem, joint swelling and myalgias. Skin: Negative for rash. Neurological: Negative for dizziness, tremors, syncope, weakness, light- headedness and headaches. Psychiatric/Behavioral: Negative for decreased concentration and suicidal ideas. The patient is notnervous/anxious. Hematological: Does not bruise/bleed easily. Endocrine: Negative for cold intolerance, heat intolerance, polydipsia, polyphagia and polyuria. Objective Physical Exam Vitals reviewed. Constitutional: Appearance: Normal appearance. HENT: Head: Normocephalic and atraumatic. Right Ear: Tympanic membrane normal. Left Ear: Tympanic membrane normal. Nose: Nose normal. Mouth/Throat: Mouth: Mucous membranes are moist. Pharynx: Oropharynx is clear. Eyes: Pupils: Pupils are equal, round, and reactive to light. Cardiovascular: Rate and Rhythm: Normal rate and regular rhythm. Pulses: Normal pulses. Heart sounds: Normal heart sounds. Pulmonary: Effort: Pulmonary effort is normal. Breath sounds: Normal breath sounds. Abdominal: General: Abdomen is flat. Bowel sounds are normal. Palpations: Abdomen is soft. Musculoskeletal: General: Normal range of motion. Cervical back: Normal range of motion. Skin: General: Skin is warm and dry. Capillary Refill: Capillary refill takes less than 2 seconds. Neurological: General: No focal deficit present. Mental Status: She is alert and oriented to person, place, and time. Psychiatric: Mood and Affect: Mood normal. Behavior: Behavior normal. Assessment/Plan Problem List Items Addressed This Visit Hyperlipidemia (CMS/HCC) - Primary Currently taking Rosuvastatin 20mg Denies any myalgias. Continue current regimen. Reports she quit drinking liquor in 09/2023 Now drinks only a light beer on occasion. Family history of heart disease Strong family history of heart disease; Mom and grandmother. Afib, CHF. 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 Had Cardiac Cath in 2008- unremarkable Pt was still a 1ppd smoker at that time. Quit in 2017. Would like Coronary Artery Calcium Scoring done. Provided pt with information and order. documented in this [facility]11-19-2024 Instructions* Patient Instructions* Tristian Bearden NP - 06/18/2024 8:30 AM EST INCREASE your cardiovascular ACTIVITY; GOAL 150 minutes per week. AVOID eating less than 2-4 hours before bedtime. AVOID all electronics for 2 hours prior to bedtime. Bed is for SLEEP ONLY. AVOID excessive alcohol intake. AVOID caffeine after 12:00pm. Go to bed when you are tired. If you are not tired that night, push the time back by 30 minutes the next night. Continue to do so until you are able to fall asleep without difficulty. If you wake up in the middle of the night, DO NOT LAYTHERE FOR LONGER THAN 40 MINUTES. Once you are up, YOU ARE UP FOR THE DAY. AVOID napping. Get a Lavender diffuser in your bedroom. Magnesium Glycinate 500-1,000mg about 30-60 minutes before bedtime. Brand: Innate OR Melatonin 5mg-10mg about 30 minutes before bedtime. Any Brand is fine, but once you select a brand stick with it. documented in this [facility]28[facility]* Encounter Date Diagnosis Assessment Notes Treatment Notes Treatment Clinical Notes Jul, Primary osteoarthritis of left knee (ICD-10 - M17.12) Jul, Primary osteoarthritis of left hip (ICD-10 - M16.12) Jul, Glenohumeral arthritis, left (ICD-10 - M19.012) Jul, Impingement syndrome, shoulder, left (ICD-10 - M75.42) Jul, Obesity, morbid, BMI 50 or higher (ICD-10 - E66.01) Jul, Age-related osteoporosis without current pathological fracture (ICD-10 - M81.0) Jul, Other joint terminal attack controller (current) drug therapy (ICD-10 - Z79.899) Jul, Other In regards to h er left shoulder, she is asymptomatic at this [...] all conservative treatment options to include: oral anti-inflammatories , physical therapy, and assistive devices. We will move forward with the definitive treatment option and schedule the patient for the above mentioned procedure after we have reviewed screening labs and clearances. Patient understands abnormal screening labs or absent clearances could delay their surgery. Alexis Bittar Other 12-14-2023 Evaluation note* Encounter Date Diagnosis Assessment Notes Treatment Notes Treatment Clinical Notes Jun, Primary osteoarthritis of left knee (ICD-10 - M17.12) Jun, Primary osteoarthritis of left hip (ICD-10 - M16.12) Jun, Glenohumeral arthritis, left (ICD-10 - M19.012) Jun, Impingement syndrome, shoulder, left (ICD-10 - M75.42) Jun, Other In regards to t he left hip osteoarthritis, we discussed how this [...] both the hip and the knee being woml-su-wuzn arthritis I still feel that the most [...] her back in 6 weeks for reevaluation. Alexis Bittar Other 12-11-2023 Evaluation note* Encounter Date Diagnosis Assessment Notes Treatment Notes Treatment Clinical Notes Jun, Left hip pain (ICD-10 - M25.552) Alexis Bittar Other Evaluation noteNo assessment information available [facility] Work Phone: Evaluation note* Diagnosis Onset Date Resolution Status Primary osteoarthritis of left hip acute [facility] Work Phone: Evaluation note* Diagnosis Onset Date Resolution Status Primary osteoarthritis of left hip acute Aftercare following left hip joint replacement surgery acute Presence of left artificial hip joint acute Aftercare following left hip joint replacement surgery acute Presence of left artificial hip joint acute [facility] Work Phone: Evaluation note* Diagnosis Onset Date Resolution Status Aftercare following left hip joint replacement surgery acute Presence of left artificial hip joint acute Aftercare following left hip joint replacement surgery acute Presence of left artificial hip joint acute [facility] Work Phone: Evaluation note* Diagnosis Medicare annual wellness visit, subsequent- Primary Other hyperlipidemia (CMS/HCC) RLS (restless legs syndrome) Restless legs syndrome (RLS) Screening mammogram, encounter for Encounter for screening for lung cancer Arthritis of left hip Routine general medical examination at health care facility Routine general medical examination at a health care facility Left sided colitis with rectal bleeding (CMS/HCC)- Primary Arthritis of left hip- Primary Centrilobular emphysema (CMS/HCC) Pre-operative clearance Unspecified pre-operative examination URTI (acute upper respiratory infection)- Primary Acute upper respiratory infections of unspecified site Hyperlipidemia, unspecified hyperlipidemia type (CMS/HCC)- Primary S/P hip replacement, left Psychophysiological insomnia Persistent disorder of initiating or maintaining sleep Hair thinning Unspecified alopecia Stress and adjustment reaction (CMS/HCC) Hyperlipidemia, unspecified hyperlipidemia type (CMS/HCC)- Primary Family history of CHF (congestive heart failure) Family history of other cardiovascular diseases Family history of abdominal aortic aneurysm (AAA) Family history of heart disease [facility] Diagnosis Medicare annual wellness visit, subsequent- Primary Other hyperlipidemia (CMS/HCC) RLS (restless legs syndrome) Restless legs syndrome (RLS) Screening mammogram, encounter for Encounter for screening for lung cancer Arthritis of left hip Routine general medical examination at health care facility Routine general medical examination at a [facility] care [facility] Left sided colitis with rectal bleeding (CMS/HCC)- Primary Arthritis of left hip- Primary Centrilobular emphysema (CMS/HCC) Pre-operative clearance Unspecified pre-operative examination URTI (acute upper respiratory infection)- Primary Acute upper respiratory infections of unspecified site Hyperlipidemia, unspecified hyperlipidemia type (CMS/HCC)- Primary S/P hip replacement, left Psychophysiological insomnia Persistent disorder of initiating or maintaining sleep Hair thinning Unspecified alopecia Stress and adjustment reaction (CMS/HCC) Hyperlipidemia, unspecified hyperlipidemia type (CMS/HCC)- Primary Family history of CHF (congestive heart failure) Family history of other cardiovascular diseases Family history of abdominal aortic aneurysm (AAA) Family history of heart disease Hyperlipidemia, unspecified hyperlipidemia type (CMS/HCC) [facility] Diagnosis Hyperlipidemia, unspecified Family history of ischemic heart disease and other diseases of the circulatory system Elevated blood-pressure reading, without diagnosis of hypertension documented in this encounter [facility] Work Phone: Evaluation note* Diagnosis Medicare annual wellness visit, subsequent- Primary Other hyperlipidemia (CMS/HCC) RLS (restless legs syndrome) Restless legs syndrome (RLS) Screening mammogram, encounter for Encounter for screening for lung cancer Arthritis of left hip Routine general medical examination at [facility] care facility Routine general medical examination at a [facility] care facility Left sided colitis with rectal bleeding (CMS/HCC)- Primary Arthritis of left hip- Primary Centrilobular emphysema (CMS/HCC) Pre-operative clearance Unspecified pre-operative examination URTI (acute upper respiratory infection)- Primary Acute upper respiratory infections of unspecified site Hyperlipidemia, unspecified hyperlipidemia type (CMS/HCC)- Primary S/P hip replacement, left Psychophysiological insomnia Persistent disorder of initiating or maintaining sleep Hair thinning Unspecified alopecia Stress and adjustment reaction (CMS/HCC) Hyperlipidemia, unspecified hyperlipidemia type (CMS/HCC)- Primary Family history of CHF (congestive heart failure) Family history of other cardiovascular diseases Family history of abdominal aortic aneurysm (AAA) Family history of heart disease 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 Anxiety Anxiety state, unspecified documented [facility] Diagnosis Medicare annual wellness visit, subsequent- Primary Other hyperlipidemia (CMS/HCC) RLS (restless legs syndrome) Restless legs syndrome (RLS) Screening mammogram, encounter for Encounter for screening for lung cancer Arthritis of left hip Routine general medical examination at health care facility Routine general medical examination at a [facility] Left sided colitis with rectal bleeding (CMS/HCC)- Primary Arthritis of left hip- Primary Centrilobular emphysema (CMS/HCC) Pre-operative clearance Unspecified pre-operative examination Hyperlipidemia, unspecified hyperlipidemia type (CMS/HCC)- Primary S/P hip replacement, left Psychophysiological insomnia Persistent disorder of initiating or maintaining sleep Hair thinning Unspecified alopecia Stress and adjustment reaction (CMS/HCC) Hyperlipidemia, unspecified hyperlipidemia type (CMS/HCC)- Primary Family history of CHF (congestive heart failure) Family history of other cardiovascular diseases Family history of abdominal aortic aneurysm (AAA) Family history of heart disease 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 Anxiety Anxiety state, unspecified Coronary artery calcification seen on CAT scan (CMS/HCC) [facility] Diagnosis Medicare annual wellness visit, subsequent- Primary Other hyperlipidemia (CMS/HCC) RLS (restless legs syndrome) Restless legs syndrome (RLS) Screening mammogram, encounter for Encounter for screening for lung cancer Arthritis of left hip Routine general medical examination at health care facility Routine general medical examination at a [facility] care facility Left sided colitis with rectal bleeding (CMS/HCC)- Primary Arthritis of left hip- Primary Centrilobular emphysema (CMS/HCC) Pre-operative clearance Unspecified pre-operative examination Hyperlipidemia, unspecified hyperlipidemia type (CMS/HCC)- Primary S/P hip replacement, left Psychophysiological insomnia Persistent disorder of initiating or maintaining sleep Hair thinning Unspecified alopecia Stress and adjustment reaction (CMS/HCC) Hyperlipidemia, unspecified hyperlipidemia type (CMS/HCC)- Primary Family history of CHF (congestive heart failure) Family history of other cardiovascular diseases Family history of abdominal aortic aneurysm (AAA) Family history of heart disease 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 Anxiety Anxiety state, unspecified Tonsillar tag Other chronic disease of tonsils and adenoids documented [facility] this [facility] Diagnosis Chest pain, unspecified type- Primary [facility] Author Nazario Blue [facility] January 26, 2024 10:00am Note Date/Time January 26, 2024 10:0 0am [facility] [address] [place] [address] Gastroenterology H&P Signed Patient: Nadya Kuhn MR#: [id number] : 1955 Acct:[id number] Age/Sex: 68 / F Adm Date: 4 Loc: Room: Type: [facility] Attending Dr: Nazario Blue MD Copies to: MD Shaikh Maude Addison MD~ Date of Service: 01/26/2024 HISTORY & PHYSICAL: Patient's history with special attention to the cardiovascular, pulmonary systems and the current problem was reviewed with the patient immediately prior to the procedure. Present medications and doses reviewed in the EMR. Allergies and pertinent laboratory tests were also reviewedat this time in the EMR. The physical examination, as below, was then performed. Indication, assessment and HPI: 68-year-old female with history of colitis in 08/2023 treated with antibiotics here for diagnostic colonoscopy Family history of GI malignancy? No PHYSICAL EXAMINATION General appearance: NAD Skin: No jaundice Head: NC/AT Eyes: Anicteric Neck: Supple Lungs: Normal respiratory effort, no use of accessory muscles Abdomen: nondistended Neuro: Ox3. REVIEW OF SYSTEMS Constitutional: Denies malaise, fevers Cardiovascular: Denies chest pain, palpitations Respiratory: Denies shortness of breath, wheezing Gastrointestinal: As per HPI Genitourinary: Denies dysuria, polyuria Musculoskeletal: Denies joint swelling, joint stiffness Neurological: Denies confusion, numbness, tingling Endocrine: Denies fatigue Written informed consent obtained from the patient. Risks (including but not limited to perforation, infection, bloating, bleeding, need for emergent surgeryand loss of life), benefits and alternatives explained and questions answered. The patient verbalized understanding. Based on history patient is an appropriate candidate for the procedure. Nazario Blue M.D. Documented By: Nazario Blue MD 01/26/24 0952 Signed By: <Electronically signed by Nazario Blue MD> 01/26/24 1000 [facility] Work Phone: History general Narrative - Reported* Type Description Date Medical History hypercholesterolemia Medical History emphysema-mild Surgical History C section x2 Surgical History tonsillectomy Surgical History RTHA Surgical History ear surgery Alexis Bittar Other Hospital Discharge instructions Additional Instructions Joint Replacement Discharge Instructions Your safety during your recovery process is important to us. Please seek immediate emergency care if you have sudden chest pain or shortness of breath. Additionally, please call our office at [phone] should any of the following occur: wound [...] over time or it could last forever. LORAINE hose (stockinette): Wear them for 4 weeks [...] to walk without your walker and your mall plant caretaker until the therapist checks you the following [...] and/or laxatives as directed. You may take czle-srm-pktbhln Benadryl if itching occurs without a rash or hives. Icing and elevation will help relieve pain as well, do not underestimate the power of ice and elevation. We do recommend that you stop taking narcotic pain medications by 4-6 weeks after surgery and if necessary, continue to use anti-inflammatory medications such as Mobic (meloxicam), Celebrex (celecoxib), or an jgnl-gtd-sincimg medication (Aleve, Motrin, Ibuprofen, etc). Driving an [...] feel free to call our office at [phone]. You are a priority of ours and we will not be upset with you if you call. We would much rather you call to confirm aspects of your recovery process as opposed to possibly hindering your recovery with inappropriate care. We are committed to providing you with the best care possible. Luis Carlton II, MD Updated 08/21/23[facility] Work Phone: Hospital Discharge instructions Additional Instructions DISCHARGE INSTRUCTIONS FOR COLONOSCOPY WHAT TO EXPECT: - You may feel full, gassy or cramping after your procedure. In some cases, this may be from a few hours to a day. Walking may help relieve the discomfort. - If you have polyp(s) removed you may note some minor bloody discharge after your first bowel movements. - You should begin to recover from anesthesia within 1 hour of the procedure, however may feel groggy for the next 24 hours. DO's AND DON'Ts: - Call your doctor right away if you have a hard abdomen, severe pain, are passing lots of bright red blood or clots. - Call your doctor if you develop any rashes, hives or difficulty breathing. - Let your doctor know if you have not had a bowel movement by 3 days after your procedure. - If you take 81 mg aspirin for your heart it is safe to resume this medication. - If you take other blood thinner medications your doctor will instruct you when these can safely be resumed. - Do NOT drive for 24 hours. - Do NOT operate machinery such as power tools, lawn mowers, snow blowers, sewing machines, etc. for 24 hours. - Avoid alcoholic beverages and drugs for allergies, nerves, or sleep. - Do NOT stay alone. Do NOT leave your child unattended. - Do NOT make important personal or business decisions or sign any legal documents. - Eat solid foods and drink liquids in smaller amounts than usual until normal appetite returns. If you should experience an upset stomach, liquids high in sugar content (soda, Dougie-Aid, non-acid juices) are recommended. - You can resume normal activities tomorrow. FOLLOW UP & RECOMMENDATIONS: -Notify the doctor if you have any problems. -Repeat colonoscopy in 3 years. -Follow up with PCP. -Office number [phone]. [facility] Work Phone: InstructionsNot on filedocumented in this encounter [facility] SystemInstructionsNot on filedocumented in this encounter [facility] SystemInstructionsNot on filedocumented in this encounter [facility] SystemReason for visit Narrative* Imaging (Routine) - Pending Review Specialty Diagnoses / Procedures Referred By Becky t Referred To Contact Radiology Diagnoses Hyperlipidemia, unspecified Family history of ischemic heart disease and other diseases of the circulatory system Elevated blood-pressure reading, without diagnosis of hypertension Procedures CT cardiac scoring wo IV contrast Natalai Bearden APRN-GATE GUARD [address] [place] [address] Phone: tel: fax: Referral ID Status Reason Start Date Expiration Date Visits Requested Visits Authorized [id number] Pending Review Perform Procedure 4 06/18/2025 1 1 [facility] Work Phone: Summary Purpose Family History Relationship Condition Age at Onset Recorded Date/T logan father Hyperlipidemia Unknown Chronic obstructive pulmonary disease Unk nown Hypertension Unknown Abdominal aortic aneurysm (AAA) Unknown Not Specified Congestive heart failure Unknown Atrial fibrillation Unknown Hyperlipidemia Unknown brother Hyperlipidemia Unknown Relationship Condition Age at Onset Recorded Date/T logan father Hyperlipidemia Unknown Chronic obstructive pulmonary disease Unk nown Hypertension Unknown Abdominal aortic aneurysm (AAA) Unknown mother Congestive heart failure Unknown Atrial fibrillation Unknown Hyperlipidemia Unknown brother Hyperlipidemia Unknown Advance Directives Advance Directive Response Recorded Date/ Time Advance Directives No May 14, 2023 11:22am Advance Directive Response Recorded Date/ Time Advance Directives No May 14, 2023 10:22am Chief Complaint and Reason for Visit Chief [...] of left artificial hip joint Chief Complaint 2 WK POST OP LTHA 4 WK RECHECK Z96.642 Z47.1 Colitis Colitis Reason for Visit Aftercare following left hip joint replacement surgery Presence of left artificial hip joint Aftercare following left hip joint replacement surgery Presence of left artificial hip joint Chief Complaint 2 WK POST OP LTHA 4 WK RECHECK Z96.642 Z47.1 Colitis Colitis Amb Documentation OP SP RECHECK LT HIP INCISION Reason for Visit Aftercare following left hip joint replacement surgery Presence of left artificial hip joint Aftercare following left hip joint replacement surgery Presence of left artificial hip joint Chief Complaint Admit Date sore throat, chest congestion August 312024 9:49am Chief Complaint Admit Date sore throat, chest congestion August 312024 9:49am NEW [place]IE WRIST PAIN/NUMBNESS NX September 10:20am M25.531 - Pain in right wrist October 01, 2024 10:29am Reason for Visit Admit Date Influenza A September 14, 2024 9:49am Arthritis of carpometacarpal (CMC) joint of both thumbs October 01, 2024 10:20am Right carpal tunnel syndrome October 01, 2024 10:20am Additional Source Comments INFORMATION SOURCE (unrecogn ized section and content) DATE CREATED AUTHOR 11/24/2022 [facility] DATE CREATED AUTHOR AUTHOR'S ORGANIZ ATION 09/02/2024 [facility] DATE CREATED AUTHOR AUTHOR'S ORGANIZ ATION 09/08/2024 [facility] EPIC DATE CREATED AUTHOR AUTHOR'S ORGANIZ ATION 10/03/2024 [facility] ys[facility] Group Care Teams (unrecognized sec [...] Maude MD Primary Care Provider Active Start: January 26, 2024 End: January 26, 2024 Nazario Blue MD Attending Provider Active Start: January 26, 2024 End: January 26, 2024 Team Status: Active Member Role Status Dates Shaikh Maude MD Primary Care Provider Active Start: January 26, 2024 Nazario Blue MD Attending Provider, Other Provider Act portia Start: January 26, 2024 Team Status: Active Member Role Status Dates [...] Care Provider Active Start: December 06, 2023 Team Status: Active Member Role Status So Santoro MD Primary Care Provider Active Start: January 29, 2024 Chanda Fisher Attending Provider Active Start: 2023 Team Status: Inactive Member Role Status Dates Shaikh Maude MD Primary Care Provider Active Start: January 30, 2024 End: January 30, 2024 Luis Carlton II, MD Attending Provider Active Start: January 30, 2024 End: January 30, 2024 Event Specialist Relationship Specialty Start Date End Date Rogelio Coleman MD [address] [place] [phone] PCP - General Family Medicine 06/18/24 Tristian Bearden NP [address] [place] [phone] Nurse Practitioner Family Medicine 05/15/24 Event Specialist Relationship Specialty Start Date End Date Rogelio Coleman MD [address] [place] [phone] PCP - General Family Medicine 06/18/24 Tristian Bearden NP [address] [place] [address] Nurse Practitioner Family Medicine 05/15/24 Event Specialist Relationship Specialty Start Date End Date Rogelio Coleman MD [address] [place] [phone] PCP - General Family Medicine 06/18/24 Tristian Bearden NP [address] [place] [address] Nurse Practitioner Family Medicine 05/15/24 Event Specialist Relationship Specialty Start Date End Date Rogelio Coleman MD [address] [place] [phone] PCP - General Family Medicine 06/18/24 Tristian Bearden NP [address] [place] [address] Nurse Practitioner Family Medicine 05/15/24 Event Specialist Relationship Specialty Start Date End Date Rogelio Coleman MD [address] [place] [phone] PCP - General Family Medicine 06/18/24 Tristian Bearden NP [address] [place] [phone] Nurse Practitioner Family Medicine 05/15/24 Event Specialist Relationship Specialty Start Date End Date Rogelio Coleman MD [address] [place] [phone] PCP - General Family Medicine 06/18/24 Tristian Bearden NP [address] [place] [address] Nurse Practitioner Family Medicine 05/15/24 Event Specialist Relationship Specialty Start Date End Date Rogelio Coleman MD [address] [place] [phone] PCP - General Family Medicine 06/18/24 Tristian Bearden NP [address] [place] [address] Nurse Practitioner Family Medicine 05/15/24 Team Status: Inactive Member Role Status Dates Shaikh Maude MD Primary Care Provider Active Start: September 14, 2024 End: September 14, 2024 Perla Rivera APRN Attending Provider Active Start: September 14, 2024 End: September 14, 2024 Team Status: Inactive Member Role Status Dates Shaikh Maude MD Primary Care Provider Active Start: October 01, 2024 End: October 01, 2024 Gabino Rios MD Attending Provider Active Star t: October 01, 2024 End: October 01, 2024 Team Status: Active Member Role Status Dates Gabino Rios MD Attending Provider Active Star t: October 01, 2024 Shaikh Maude MD Primary Care Provider Active Start: October 01, 2024 Team Status: Inactive Member Role Status Dates Gabino Rios MD Attending Provider Active Star t: October 01, 2024 End: October 01, 2024 Shaikh Maude MD Primary Care Provider Active Start: October 01, 2024 End: October 01, 2024 Event Specialist Relationship Specialty Start Date End Date Rogelio Coleman MD [address] [place] [address] PCP - General Family Medicine 10/17/24 Goals (unrecognized section and content) Goals may be documented in a n alternate sectionNo InformationNo InformationNo InformationGoals may be documented in an alternate sectionGoals may be documented in an alternate sectionGoals may be documented in an alternate sectionGoals may be documented in an alternate sectionGoals may be documented in an alternate sectionNot on filedocumented as of this encounterNot on filedocumented as of this encounterNot on filedocumented as of this encounter REASON FOR VISIT (unrecogniz ed section and content) Reason Comments Follow-up Hyperlipidemia Reason Onset Date Comments Med Refill 08/22/2024 Reason Comments Sore Throat Reason Comments 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 Specialty Diagnoses / Procedures Referred By Contac t Referred To Contact Otolaryngology Diagnoses 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 Procedures SD OFFICE/OUTPATIENT NEW HIGH MDM 60 MINUTES Tristian Bearden, INSTRUCTOR WASTEWATER [employer]REATMENT PLANT [address] [place] [address] Phone: tel: fax: Billy Finch MD [address] [address] Phone: tel: fax: Referral ID Status Reason Start Date Expiration Date V isits Requested Visits Authorized [id number] Closed Specialty Services Required 08/29/2024 02/25/2025 1 1 Reason Comments New Patient Hyperlipidemia Chest Pain Specialty Diagnoses / Procedures Referred By Contac t Referred To Contact Cardiology Diagnoses Coronary artery calcification seen on CAT scan Procedures SD OFFICE OUTPATIENT VISIT 60-74 MINS HIGH MDM [id number] (SNOMED CT) - AMB REFERRAL TO CARDIOLOGY Tristian Bearden, LOG POND WORKER-GATE GUARD [address] [place] [address] Phone: tel: fax: Gabino Hurst MD [address] [place] [facility] [place] [address] Phone: tel: fax: Referral ID Status Reason Start Date Expiration Date V isits Requested Visits Authorized [id number] Pending Review 09/05/2024 03/04/2025 1 1 FOR RECORDS PERTAINING TO PATIENTS WHO ARE [...] BE BASED ON THE PRIMARY CLINICAL RECORDS. [employer] provides no warranty or guarantee of the accuracy or completeness of information in this document.
[2024-10-18 08:35] LABS: Estimated GFR (African America >60 (>=60 mL/min/1.73m^2); Estimated GFR (Non-African Ame >60 (>=60 mL/min/1.73m^2)
== END 2024-10-18 07:40 | disposition home or self-care (01) ==
LOC: LAB 07:41
PROVIDERS: PCP Family Medicine
DX: R07.9 Chest pain, unspecified (principal)
CPT/HCPCS: 36415; 82565

== ENCOUNTER 2025-01-24 09:18 | Outpatient (OUT) | payer MEDICARE, SELFPAY ==
--- OUTSIDE RECORDS SUMMARY | 2025-01-24 09:21 | XMS_ITS | Encounter Summary ---
Author Organization [facility] Address [address] [place] [address] Phone Care Team Providers Care Hand Molder Meat Name Role Phone Rogelio Elam MD Primary Care Provider + Encounter Details Date Type Department Care Team (Late st Contact Info) Description 12/18/2024 Scanned Document [facility] [address] [place] [id number] Scanning, Generic Provider Social History Tobacco Use Types Packs/Day Years Used Date Smoking Tobacco: Former Cigarettes Smokeless Tobacco: Never Alcohol Use Standard Drinks/Week Comments Yes 10 (1 standard drink = 0.6 oz pu re alcohol) Comments Unknown Sex and Gender Information Value Date Recorded Sex Assigned at Not on file Legal Sex Female 9:27 AM EST Gender Identity Not on file Sexual Orientation Not on file COVID-19 Exposure Response Date Recorded In the last 10 days, have yo u been in contact with someone who was confirmed or suspected to have Coronavirus/COVID-19? No / Unsure 12/10/2024 12:52 PM EDT documented as of this encounter Plan of Treatment Not on file documented as of this encounter Visit Diagnoses Not on filedocumented in this encounter Additional Health Concerns Assessment Noted Time A fall risk assessment has been complete d for the patient 12/10/2024 1:10 PM EDT documented as of this encounter Care Teams Hand Molder Meat Relationship Specialty Start Date End Date Rogelio Elam MD [address] [place] [address] PCP - General Family Medicine 12/10/24 documented as of this encounter
--- OUTSIDE RECORDS SUMMARY | 2025-01-24 09:21 | XMS_ITS | Encounter Summary ---
Author Organization [employer] Address [id number] [address] [place] [address] Care Team Providers Care Unit Receptionist Name Role Phone Rogelio Elam MD Primary Care Provider [phone] Encounter Details Date Type Department Care Team (Late st Contact Info) Description 12/09/2024 Orders Only [facility] [address] [place] [id number] April Vu CMA Chest pain, unspecified type Social History Tobacco Use Types Packs/Day Years Used Date Smoking Tobacco: Never Assessed Childcare Answer Date Recorded Childcare Unknown 01/09/2019 Employment Answer Date Recorded Employment Unknown 01/09/2019 Hunger Screening Answer Date Recorded Within the past 12 months we worried whether our food would run out before we got money to buy more. Never True 10/17/2024 Within the past 12 months th e food we bought just didn't last and we didn't have money to get more. Never True 10/17/2024 Comments Unknown Sex and Gender Information Value Date Recorded Sex Assigned at Not on file Legal Sex Female 9:48 PM EDT Gender Identity Not on file Sexual Orientation Not on file documented as of this encounter Plan of Treatment Not on file documented as of this encounter Procedures Procedure Name Priority Date/Time Associated Diagnosis Comments CT CTA COR ARTERIES W OR WO SCORING Routine 12/06/2024 Chest pain, unspecified type documented in this encounter Results * CT angiogram coronary arteries with or without scoring (12/06/2024) Anatomical Region Laterality Modality Heart, Body, Body Covera N/A Compute d Tomography 12/06/2024 us Gabino Hurst MD IMG CT ORDERABLES Final Resul t documented in this encounter Visit Diagnoses Diagnosis Chest pain, unspecified type documented in this encounter Care Teams Unit Receptionist Relationship Specialty Start Date End Date Rogelio Elam MD PCP - General Family Medicine 10/17/24 documented as of this encounter
--- OUTSIDE RECORDS SUMMARY | 2025-01-24 09:21 | XMS_ITS | Encounter Summary ---
Author Organization [facility] Address [address] [place] [address] Phone Care Team Providers Care Electrotype Finisher Name Role Phone Rogelio Elam MD Primary Care Provider + Encounter Details Date Type Department Care Team (Late st Contact Info) Description 10/24/2024 Scanned Document [facility] [address] [place] [phone] Scanning, Generic Provider Social History Tobacco Use Types Packs/Day Years Used Date Smoking Tobacco: Never Assessed Comments Unknown Sex and Gender Information Value Date Recorded Sex Assigned at Not on file Legal Sex Female 9:27 AM EST Gender Identity Not on file Sexual Orientation Not on file documented as of this encounter Plan of Treatment Not on file documented as of this encounter Visit Diagnoses Not on filedocumented in this encounter Care Teams Electrotype Finisher Relationship Specialty Start Date End Date Rogelio Elam MD [address] [place] [address] PCP - General Family Medicine 12/10/24 documented as of this encounter
--- OUTSIDE RECORDS SUMMARY | 2025-01-24 09:21 | XMS_ITS | Encounter Summary ---
Author Organization [facility] Address [address] [place] [address] Phone Care Team Providers Care Cubing Machine Tender Name Role Phone Rogelio Elam MD Primary Care Provider + Encounter Details Date Type Department Care Team (Late st Contact Info) Description 10/10/2023 Scanned Document [facility] [address] [place] [phone] Scanning, Generic Provider Social History Tobacco Use [...] on filedocumented in this encounter Care Teams Cubing Machine Tender Relationship Specialty Start Date End Date Rogelio Elam MD [address] [place] [address] PCP - General Family Medicine 12/10/24 documented as of this encounter
--- OUTSIDE RECORDS SUMMARY | 2025-01-24 09:22 | XMS_ITS | Clinical Summary ---
Author Organization [employer] Address [id number] [address] [place] [address] Care Team Providers Care Payroll Supervisor Name Role Phone Rogelio Elam MD Primary Care Provider [phone] Allergies No known active allergies Medications rosuvastatin (CRESTOR) 20 mg tablet Take 1 tablet (20 mg total) by mouth in the morning. 08/22/2024 Active hydrOXYzine (ATARAX) 25 mg tablet Take 1 tablet (25 mg total) by mouth every 8 (eight) hours as needed. 08/29/2024 Active magnesium oxide (MAGOX) 400 mg tablet Take 1 tablet (400 mg total) by mouth in the morning. Active naproxen (EC NAPROSYN) 375 MG tablet,delayed release (DR/EC) EC tablet Take 500 mg by mouth 2 (two) times a day as needed for pain. Active metoprolol tartrate (LOPRESSOR) 50 mg tablet Take 1 tablet (50 mg) [address] and 1 tablet (50 mg) [address] 2 tablet 10/17/2024 Active Active Problems Problem Noted Date Diagnosed Date Chest pain 10/17/2024 Encounters Date Type Department Care Team Description 12/09/2024 Orders Only [facility] [address] [place] [address] Natali Malhotra RN Chest pain, unspecified type (Primary Dx) 12/09/2024 Orders Only [facility] [address] [place] [address] April Vu CMA Chest pain, unspecified type from Last 3 Months Family History Medical History Relation Name Comments Hyperlipidemia Father Hypertension Father Heart disease Maternal Grandfather Heart disease Maternal Grandmother Hyperlipidemia Mother Relation Name Status Comments Father Maternal Grandfather Maternal Grandmother Mother Paternal Grandmother Social History Tobacco Use Types Packs/Day Years [...] on file Sexual Orientation Not on file Last Filed Vital Signs Vital Sign Reading Time Taken Comments Blood Pressure 136/80 10/17/2024 10:45 AM EDT Pulse 70 10/17/2024 10:45 AM EDT Temperature - - Respiratory Rate - - Oxygen Saturation - - Inhaled Oxygen Concentration - - Weight 60.8 kg (134 lb) 10/17/2024 10:45 AM EDT Height 170.2 cm (5' 7 ) 10/17/2024 10:45 AM EDT Body Mass Index 20.99 10/17/2024 10:45 AM EDT Plan of Treatment Health Maintenance Due Date Last Done Comments Depression Screening 1969 Tobacco Screening 1969 DTaP,Tdap and Td Vaccines (1 - Tdap) 01/29/1976 Zoster (Shingles) Vaccine (1 of 2) 2007 Fall Risk Screening 2022 Influenza Vaccine 03/31/2025 Adult BMI Screening 10/17/2025 10/17/2024 Medical Devices Not on file Procedures Procedure Name Priority Date/Time Associated Diagnosis Comments CT CTA COR ARTERIES W OR WO SCORING Routine 12/06/2024 Chest pain, unspecified type from Last 3 Months Results * CT angiogram coronary arteries with or without scoring (12/06/2024) Anatomical Region Laterality Modality Heart, Body, Body Covera N/A Compute d Tomography 12/06/2024 us Gabino Hurst MD IMG CT ORDERABLES Final Resul t from Last 3 Months Insurance [employer] MEDICARE Care Teams Payroll Supervisor Relationship Specialty Start Date End Date Rogelio Elam MD PCP - General Family Medicine 10/17/24
--- OUTSIDE RECORDS SUMMARY | 2025-01-24 09:22 | XMS_ITS | Encounter Summary ---
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 Gas Plant Technician Name Role Phone Shaikh LAWANDA Santoro Primary Care Provider [phone] Shaikh LAWANDA Santoro Primary Care Provider [phone] Mabel Bearden CHAIR SPRINGER Unavailable [phone] Unallocated, Noms Provider Primary Care Provi ulysses Rogelio Elam MD Primary Care Provider [phone] Encounter Details Date Type Department Care Team (Late st Contact Info) Description 08/28/2023 Clinisync Result Encounter [facility] External Department Unsolicited Shaikh Santoro MD [address] [place] [address] Social History Tobacco Use Types Packs/Day Years Used Date Smoking Tobacco: Former Cigarettes Q uit: 03/20/2018 Smokeless Tobacco: Never Alcohol Use Standard Drinks/Week Comments Yes 14 (1 standard drink = 0.6 oz pu re alcohol) Comments Unknown Sex and Gender Information Value Date Recorded Sex Assigned at Not on file Legal Sex Female 5:23 PM EDT Gender Identity Not on file Sexual Orientation Not on file documented as of this encounter Plan of Treatment Upcoming Encounters Date Type Department Care Team (Late st Contact Info) Description 04/08/2025 9:00 AM EDT Office Visit [facility] [address] [place] [address] Rogelio Elam MD [address] [place] [address] 12/03/2025 11:00 AM EDT [facility] [address] [place] [address] April Ibrahim PA [address] [place] [address] documented as of this encounter Procedures Procedure Name Priority Date/Time Associated Diagnosis Comments CT LUNG SCREENING LOW DOSE 08/28/2023 10:21 AM EST [facility] VITAMIN B12 Routine 08/28/2023 10:12 AM EST [facility] FERRITIN Routine 08/28/2023 10:12 AM EST [facility] CMP (CMP) (FOR [facility] USE) Routine 08/28/2023 10:12 AM EST ALL LIPID PROFILE (FASTING) Routine 08/28/2023 10:12 AM EST ALL CBC WITH AUTO DIFF Routine 08/28/2023 10:12 AM EST documented in this encounter Results * CT LUNG SCREENING LOW DOSE (08/28/2023 10:21 AM EST) Anatomical Region Laterality Modality Other 08/28/2023 10:2 1 AM EST Narrative 08/28/2023 10:24 AM EST The [address] [address] [address] Scan Report Signed Patient: NADYA KUHN MR#: [id number] : 1955 Acct:[id number] Age/Sex: 68 / F ADM Date: 08/28/23 Loc: CT Attending Dr: Shaikh Maude Ellsworth Ordering Physician: Shaikh Jodee Santoro Date of Service: 08/28/23 Procedure(s): CT lung screening low-dose Accession Number(s): [id number] cc: Shaikh Jodee Santoro The [place] [id number] Patient Name: NADYA KUHN MRN: [id number] date: 1955 Sex: F Assigned Patient Location: CT Current Patient Location: CT Accession/Order Number: [id number] Exam Date: 08/28/2023 09:50 Report Date: 08/28/2023 10:21 At the request of: SHAIKH MAUDE Procedure: CT lung screening low-dose EXAMINATION: CT lung screening low-dose HISTORY: Encounter For Lung Cancer Screening COMPARISON: 04/05/2022 TECHNIQUE: Axial, Coronal, and Sagittal images were created without the administration of IV contrast material. Dose reduction techniques were achieved by using automated exposure control and/or adjustment of mA and/or kV according to patient size and/or use of iterative reconstruction technique. FINDINGS: LUNGS: Minimal centrilobular and paraseptal emphysema with an upper lobe predominance no new pulmonary nodule or mass PLEURA: No mass, effusion, or pneumothorax. VASCULATURE: No abnormality. VERN: No mass or pathologic adenopathy. MEDIASTINUM: No mass or pathologic adenopathy. CARDIAC: No enlargement, pericardial thickening, or significant calcification. CORONARY ARTERIES: AORTA: No aneurysm or dissection. CHEST WALL: No mass or axillary adenopathy BONES: No bone lesion or fracture. Mild degenerative changes LIMITED ABDOMEN: No suspicious findings. Limited images of the upper abdomen. OTHER: Negative. CT/CT lung screening low-dose IMPRESSION: LUNG SCREENING: Lung-RADS Category 1 Negative. No nodules and definitely benign nodules. Continue annual screening with LDCT in 12 months. Electronically authenticated by: HOLLIE HARDY Date: 08/28/2023 10:21 Dictated By: Hollie Hardy M.D. Signed By: 08/28/23 1024 DD/ 1021 TD/TT: Food Service Lead: Procedure Note Radiology, Radiologist, MD - 08/28/[address] [address] [address] Scan Report Signed Patient: NADYA KUHN LMR#: [id number] : 1955cct:[id number] Age/Sex: 68 / FADM Date: 08/28/23 Loc: CT Attending Dr: Shaikh Maude Ellsworth Ordering Physician: Shaikh Jodee Santoro Date of Service: 08/28/23 Procedure(s): CT lung screening low-dose Accession Number(s): [id number] cc: Shaikh Jodee Santoro [place] [id number] Patient Name: NADYA KUHN MRN: [id number] date: 1955 Sex: F Assigned Patient Location: CT Current Patient Location: CT Accession/Order Number: [id number] Exam Date: 08/28/2023 09:50 Report Date: 08/28/2023 10:21 At the request of: SHAIKH MAUDE Procedure: CT lung screening low-dose EXAMINATION: CT lung screening low-dose HISTORY: Encounter For Lung Cancer Screening COMPARISON: 04/05/2022 TECHNIQUE: Axial, Coronal, and Sagittal images were created without the administration of IV contrast material. Dose reduction techniques were achieved by using automated exposure control and/or adjustment of mA and/or kV according to patient size and/or use of iterative reconstruction technique. FINDINGS: LUNGS: Minimal centrilobular and paraseptal emphysema with an upper lobe predominance no new pulmonary nodule or mass PLEURA: No mass, effusion, or pneumothorax. VASCULATURE: No abnormality. VERN: No mass or pathologic adenopathy. MEDIASTINUM: No mass or pathologic adenopathy. CARDIAC: No enlargement, pericardial thickening, or significantcalcification. CORONARY ARTERIES: AORTA: No aneurysm or dissection. CHEST WALL: No mass or axillary adenopathy BONES: No bone lesion or fracture. Mild degenerative changes LIMITED ABDOMEN: No suspicious findings. Limited images of the upperabdomen. OTHER: Negative. CT/CT lung screening low-dose IMPRESSION: LUNG SCREENING: Lung-RADS Category 1 Negative. No nodules and definitely benign nodules. Continue annual screening with LDCT in 12 months. Electronically authenticated by: HOLLIE HARDY Date: 08/28/2023 10:21 Dictated By: Hollie Hardy M.D. Signed By:08/28/23 1024 DD/ 1021 TD/TT: Food Service Lead: Shaikh Maude [facility] Final Result * [facility] VITAMIN B12 (08/28/2023 10:12 AM EST) VITAMIN B12 350.0 193.0 - 986.0 pg/mL [facility] 08/28/2023 10:1 2 AM EST 08/28/2023 10:18 AM EST Narrative [facility] - 08/28/2023 2:51 PM EST Shaikh Maude [facility] Final Result Performing Organization Address City/[facility]/ZIP Co de Phone Number CLINISYNC TB * (ABNORMAL) [facility] FERRITIN (08/28/2023 10:12 AM EST) FERRITIN 331.0(H) 8.0 - 252.0 ng/mL [facility] 08/28/2023 10:1 2 AM EST 08/28/2023 10:18 AM EST Narrative [facility]YNC - 08/28/2023 2:51 PM EST Shaikh Maude [facility] Final Result [facility] TB * (ABNORMAL) ALL LIPID PROFILE (FASTING) (08/28/2023 10:12 AM EST) TRIGLYCERIDES 114 <=150 mg/dL [facility] CHOLESTEROL 258(H) <=200 mg/dL [facility] HDL CHOLESTEROL 74(H) 40 - 60 mg/dL [facility] Comment: > or =60 mg/dl - LOW CARDIOVASCULAR RISK <40 mg/dl - HIGH CARDIOVASCULAR RISK LDL CHOLESTEROL CALCULATED 162.0 mg/dL TB Comment: <100 mg/dl OPTIMAL 100-129 mg/dl NEAR OR ABOVE OPTIMAL 130-159 mg/dl BORDERLINE HIGH 160-189 mg/dl HIGH >190 mg/dl VERY HIGH VLDL CHOLESTEROL 22.8 mg/dL TBH CHOL HDL RATIO 3.5 TB[facility] Comment: 3.3 - 4.4 LOW RISK 4.4 - 7.1 AVERAGE RISK 7.1 - 11.0 MODERATE RISK >11.0 HIGH RISK 08/28/2023 10:1 2 AM EST 08/28/2023 10:18 AM EST Narrative [facility]INISYNC - 08/28/2023 11:24 AM EST us Shaikh Maude [facility] Final Result [facility]NC TB * (ABNORMAL) [facility] CMP (CMP) (FOR [facility] USE) (08/28/2023 10:12 AM EST) SODIUM 140 136 - 145 mmol/L TBH POTASSIUM 4.2 3.5 - 5.1 mmol/L [facility] CHLORIDE 105 98 - 107 mmol/L TBH CARBON DIOXIDE 26.2 21.0 - 32.0 mmol/L TBH ANION GAP 13.0 TBH GLUCOSE 93 74 - 106 mg/dL TBH BLOOD UREA NITROGEN 19.0(H) 7.0 - 18.0 mg/dL [facility] CREATININE 0.74 0.55 - 1.02 mg/dL TBH TBH EGFR-AF [place] >60 >=60 TBH TBH EGFR-NON AF [place] >60 >=60 TBH BUN CREATININE RATIO 25.7 TBH CALCIUM 9.1 8.5 - 10.1 mg/dL [facility] BILIRUBIN TOTAL 0.6 0.2 - 1.0 mg/dL [facility] ASPARTATE AMINO TRANSFERASE 14(L) 15 - 37 U/L [facility] ALANINE AMINOTRANSFERASE 26 14 - 59 U/L [facility] ALKALINE PHOSPHATASE 81 46 - 116 U/L [facility] TOTAL PROTEIN 7.2 6.4 - 8.2 g/dL [facility] ALBUMIN LEVEL 4.1 3.4 - 5.0 g/dL [facility] GLOBULIN 3.1 g/dL [facility] ALBUMIN GLOBULIN RATIO 1.3 [facility] 08/28/2023 10:1 2 AM EST 08/28/2023 10:18 AM EST Narrative CLINISYNC - 08/28/2023 11:24 AM EST us Shaikh Maude [facility] Final Result [facility] * ALL CBC WITH AUTO DIFF (08/28/2023 10:12 AM EST) [facility] WBC 5.0 4.0 - 11.0 10 3/uL TBH TBH RBC 4.23 4.20 - 5.40 10 6/uL TBH TBH HGB 13.1 12.0 - 16.0 g/dL TBH TBH HCT 41.0 36.0 - 48.0 % TBH TBH MCV 96.9 81.0 - 99.0 fL TBH TBH MCH 31.0 26.7 - 34.0 pg TBH TBH MCHC 32.0 29.9 - 35.2 g/dL TBH TBH RDW 13.8 11.0 - 15.0 % TBH TBH PLT 194 150 - 450 10 3/uL TBH TBH MPV 11.4 9.5 - 13.5 fL TBH NEUTROPHILS PERCENT AUTO 46.4 43.0 - 75.0 % TBH LYMPHOCYTES PERCENT AUTO 43.6 20.5 - 60.0 % TBH MONOCYTES PERCENT AUTO 7.6 1.7 - 12.0 % TBH TBH EO % 1.6 0.9 - 7.0 % TBH BASOPHILS PERCENT AUTO 0.6 0.2 - 2.0 % TBH IMMATURE GRANULOCYTES PCT AUTO 0.2 0.0 - 0.5 % TBH NEUTROPHILS ABSOLUTE AUTO 2.3 1.4 - 6.5 10 3/uL TBH LYMPHOCYTES ABSOLUTE AUTO 2.2 1.2 - 3.8 10 3/uL TBH MONOCYTES ABSOLUTE AUTO 0.4 0.3 - 0.8 10 3/uL TBH TBH EO # 0.1 0.0 - 0.7 10 3/uL TBH BASOPHILS ABSOLUTE AUTO 0.0 0.0 - 0.1 10 3/uL TBH IMMATURE GRANULOCYTES ABS AUTO 0.01 0.00 - 0.03 10 3/uL [facility] 08/28/2023 10:1 2 AM EST 08/28/2023 10:18 AM EST Narrative CLINISYNC - 08/28/2023 10:28 AM EST Shaikh Maude ZAMORA Final Result [facility] documented in this encounter Visit Diagnoses Not on filedocumented in this encounter Care Teams Natural Gas Plant Technician Relationship Specialty Start Date End Date Shaikh Santoro MD PCP - General Internal Medicine 07/31/22 09/20/23 Shaikh Santoro MD [address] [place] [phone] PCP - General Internal Medicine 09/21/23 05/14/24 Unallocated, Noms MD Rishabh [address] [place] [address] PCP - General Family Medicine 05/15/24 06/17/24 Rogelio Elam MD [address] [place] [address] PCP - General Family Medicine 06/18/24 Mabel Bearden NP [address] [place] [address] Nurse Practitioner Family Medicine 05/15/24 documented as of this encounter
--- OUTSIDE RECORDS SUMMARY | 2025-01-24 09:22 | XMS_ITS | Clinical Summary ---
Author Organization [facility] Address [address] [place] [address] Care Team Providers Care Comprehensive Advisor Name Role Phone Mabel Bearden CIRCUIT BOARD REPAIR TECHNICIAN Unavailable [phone] Rogelio Elam MD Primary Care Provider [phone] Allergies No known active allergies Medications rosuvastatin (Crestor) 20 MG tabletIndications:H yperlipidemia, unspecified hyperlipidemia type Take 1 tablet (20 mg) by mouth in the morning. 90 tablet 1 5 Active Active Problems Problem Noted Date Diagnosed Date Former smoker 01/03/2025 Assessment & Plan (01/03/2025 11:11 AM EDT): Repeat LDCT chest. Family history of heart disease 06/18/2024 Assessment & Plan (06/18/2024 9:21 AM EST): Strong family history of heart disease; Mom and grandmother. Afib, CHF. 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 Had Cardiac Cath in 2008- unremarkable Pt was still a 1ppd smoker at that time. Quit in 2017. Would like Coronary Artery Calcium Scoring done. Provided pt with information and order. S/P hip replacement, left 12/27/2023 Assessment & Plan (12/27/2023 11:10 AM EDT): S/p hip replacement. Doing well. Psychophysiological insomnia 12/27/2023 Assessment & Plan (12/27/2023 11:21 AM EDT): Poor sleep at night. Takes bendryl daily and it helps her sleep but she wakes up in 3 hours and unable to sleep afterwards Reports increased stress/excessive worrying because of personal issues at home. Patient has never used anything else than benadryl for sleep. Trial of trazodone 50 mg It appears to be that her stress/anxiety is interfering with her sleep and trazodone might help a little in this regard. She does not want to use something on a daily basis and would like to use trazodone as needed Hair thinning 12/27/2023 Assessment & Plan (12/27/2023 11:24 AM EDT): Using biotin Likely from increased stress at home. Stress and adjustment reaction 12/27/2023 Assessment & Plan (12/27/2023 11:23 AM EDT): Increase stress at home. Reports excessive worrying. Her symptoms are worse at night and interfere with sleep. Otherwise, she does well throughout the day. She has never tried any medication for it. She is agreeable to try and use trazodone for insomnia. Centrilobular emphysema 10/03/2023 Assessment & Plan (01/03/2025 11:12 AM EDT): No SOB and monitor. Assessment & Plan (10/03/2023 10:15 AM EST): Mild centrilobular emphysema on LDCT, no symptoms concerning for obstructive airway disease. Former smoker Quit 6 years ago. Osteoarthritis of hip 09/21/2023 Medicare annual wellness visit, subsequent 08/08 Assessment & Plan (08/08/2023 1:48 PM EST): Patient here for Medicare Wellness. Doing well overall. Reviewed medical, surgical and social hx. Tolerating medications w/o adverse effects Upto date on Colon Cancer screening - negative cologuard 04/21 LDCT for lung cancer screening and mammogram ordered. Recommended Influenza, Shingles and Pneumonia vaccine. Her last PAP smear was 4 years ago. She has prior hx of abnormal PAP once. She is concerned about needing PAP smear. Will refer to OBGYN - I think a screening PAP once may not be an unreasonable choice amanda since she had abnormal PAP prior even though it was years ago and she is now 68 years old. Hyperlipidemia 08/08/2023 Assessment & Plan (01/03/2025 11:11 AM EDT): Lipids controlled with medication and continue. Assessment & Plan (06/18/2024 9:20 AM EST): Currently taking Rosuvastatin 20mg Denies any myalgias. Continue current regimen. Reports she quit drinking liquor in 09/2023 Now drinks only a light beer on occasion. Assessment & Plan (12/27/2023 11:09 AM EDT): On Crestor 20 mg. Check Lipid panel. Assessment & Plan (08/08/2023 1:43 PM EST): On Lipitor. Risk factors include : Age. Check Lipid panel, Liver enzymes. C/w Lipitor as before. Arthritis of left hip 08/08/2023 Assessment & Plan (10/03/2023 10:15 AM EST): Poorly controlled pain, affecting her mobility and ability to perform ADLs, scheduled for hip replacement pending surgical clearance. Assessment & Plan (08/08/2023 1:44 PM EST): Chronic Arthritis of Hip. Follows an Orthopedic Surgeon for it. Asking for a referral as with change of insurance, she needs a referral now. Uses naproxen as needed. Rarely she uses tramadol when pain is severe and not responsive to Naproxen. She was told she needs Hip replacement and plans to schedule it this year. Arthritis of left knee 08/08/2023 Encounter for screening for lung cancer 08/08/19 Assessment & Plan (08/08/2023 1:42 PM EST): Quit 7 years ago. Former smoker - smoked for 50 years. More than 40 pack years hx. LDCT 04/21 - no concerning finding noted. Repeat LDCT for annual lung cancer screening. Benefits/risks associated with Lung Cancer screening discussed with patient. Questions and concerns addressed/answered fully. 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 They observed a suspicious lesion to R side of throat/near back of tongue. Pt reports area is [...] for further evaluation. Referral sent to Dr. Peña. Advised pt if she develops difficulty breathing, swallowing, severe pain, report to nearest emergency room. Pre-operative clearance 10/03/2023 06/0 12/2024 Assessment & Plan (10/03/2023 10:18 AM EST): Patient here for surgical clearance for left hip arthroplasty under [place] Patient has no known cardiac hx. She has hx of HLD for which she uses crestor. She is a former smoker and has evidence of mild emphysematous changes on LDCT performed for lung cancer screening. She reports no respiratory symptoms. She is at low risk of MACE and medically cleared to proceed with left hip arthroplasty. Will fax office notes along with signed surgical clearance to Dr Carlton's office. Left sided colitis with rectal bleeding 09/21/2023 01/03/2025 Assessment & Plan (09/21/2023 11:01 AM EST): Recent ED visit for abdominal pain and rectal bleeding. CT abd showed colitis involving transverse, descending and sigmoid colon. Discharged on PO Cipro/flagyl. Patient reports she is feeling better. Tolerating PO diet. Denies n/v and rectal bleeding. She had colonoscopy for colon cancer screening in 2008 and since then she gets Cologuard for cancer screening. Given recent bout of colitis - it is best that she gets Colonoscopy to r/o inflammatory bowel disease. Referred to GI. Screening mammogram, encounter for 08/08/2023 01/03/2025 Assessment & Plan (08/08/2023 1:43 PM EST): Ordered Mammogram. No prior hx of abnormal mammogram. Encounters Date Type Department Care Team Description 01/13/2025 Abstract [facility] [address] [place] [address] Rogelio Elam MD 01/03/2025 10:30 AM EDT Office Visit [facility] [address] [place] [address] Rogelio Ealm MD Mixed hyperlipidemia (Primary Dx); Former smoker; Centrilobular emphysema (HCC) 01/03/2025 Telephone [facility] [address] [place] [address] Rogelio Elam MD 01/03/2025 Bamboo flowsheet [facility] [address] [place] [address] Rogelio Elam MD 01/01/2025 Travel 12/03/2024 11:00 AM EDT Office Visit [facility] [address] [place] [address] April Ibrahim PA Capillary angioma (Primary Dx); Seborrheic keratosis; Inflamed seborrheic keratosis; Actinic keratosis; Lentigo simplex 12/03/2024 Bamboo flowsheet [facility] [address] [place] [address] April Ibrahim PA 12/03/2024 Travel 11/30/2024 Travel from Last 3 Months Family History Medical History Relation Name Comments Hyperlipidemia Brother Luis Hypertension Brother Luis Hyperlipidemia Father Luis Hypertension Father Bill Heart failure Mother Mary Hyperlipidemia Mother Mary Hypertension Mother Mary Osteoarthritis Mother Mary Rheum arthritis Mother Mary Relation Name Status Comments Brother Luis Father Bill Mother Mary Social History Tobacco Use Types Packs/Day Years Used Date Smoking Tobacco: Former Cigarettes 1 50 0 03/20/2003 - 03/20/2018 Passive Smoke Exposure: Past Smokeless Tobacco: Never Tobacco Cessation:Counseling Given: Not Answered Alcohol Use Standard Drinks/Week Comments Yes 10 (1 standard drink = 0.6 oz pu re alcohol) OCCASSIONAL B1300 Health Literacy Answer Date Recor ded How often do you need to hav e someone help you when you read instructions, pamphlets, or other written material from your doctor or pharmacy? Never 06/11/2024 Social Connection and Isolat ion Panel [NHANES] Answer Date Recorded In a typical week, how many times do you talk on the phone with family, friends, or neighbors? More than three times a week 06/11/2024 How often do you get togethe r with friends or relatives? More than three times a week 06/11/2024 How often do you attend chur ch or anglican services? Never 06/11/2024 Do you belong to any clubs o r organizations such as christian groups, unions, fraternal or athletic groups, or school groups? Yes 06/11/2024 How often do you attend meet ings of the clubs or organizations you belong to? More than 4 times per year 06/11/2024 Are you , , di vorced, , never , or living with a partner? 06/11/2024 AUDIT-C Answer Date Recorded Q1: How often do you have a drink containing alcohol? 4 or more times a week 06/11/2024 Q2: How many drinks containi ng alcohol do you have on a typical day when you are drinking? 1 or 2 Q3: How often do you have si x or more drinks on one occasion? Never 06/11/2024 Overall Financial Resource Strain (CARDIA) Answe r Date Recorded How hard is it for you to pa y for the very basics like food, housing, medical care, and heating? Not very hard 06/11/2024 PHQ-2 Answer Date Recorded Patient Health Questionnaire-2 Score 0 10/03/2023 [facility] [place] of Occupat ional Health - Occupational Stress Questionnaire Answer Date Recorded Do you feel stress - tense, restless, nervous, or anxious, or unable to sleep at night because your mind is troubled all the time - these days? To some extent 06/11/2024 Exercise Vital Sign Answer Date Recorde d On average, how many days pe r week do you engage in moderate to strenuous exercise (like a brisk walk)? 3 days 06/11/2024 On average, how many minutes do you engage in exercise at this level? 20 min 06/11/2024 Hunger Vital Sign Answer Date Recorded Within the past 12 months, y ou worried that your food would run out before you got the money to buy more. Never true 06/11/20 24 Within the past 12 months, t he food you bought just didn't last and you didn't have money to get more. Never true 06/11/2024 PRAPARE - Transportation Answer Date Re corded In the past 12 months, has l ack of transportation kept you from medical appointments or from getting medications? No 05/31 In the past 12 months, has l ack of transportation kept you from meetings, work, or from getting things needed for daily living? No 06/11/2024 Housing Stability Vital Sign Answer Bright e Recorded In the last 12 months, was t here a time when you were not able to pay the mortgage or rent on time? No 06/11/2024 In the past 12 months, how m any times have you moved where you were living? 0 06/11/2024 At any time in the past 12 m [facility], were you homeless or living in a fpc (including now)? No 06/11/2024 Comments No Sex and Gender Information Value Date Recorded Sex Assigned at Not on file Legal Sex Female 5:23 PM EDT Gender Identity Not on file Sexual Orientation Not on file Last Filed Vital Signs Vital Sign Reading Time Taken Comments Blood Pressure 106/60 01/03/2025 10:27 AM EDT Pulse 97 01/03/2025 10:27 AM EDT Temperature 36.2 C (97.1 F) 01/03/2025 10:27 AM EDT Respiratory Rate 22 01/03/2025 10:27 AM EDT Oxygen Saturation 97% 01/03/2025 10:27 AM EDT Inhaled Oxygen Concentration - - Weight 63 kg (139 lb) 01/03/2025 10:27 AM EDT Height 160 cm (5' 3 ) 01/03/2025 10:27 AM EDT Body Mass Index 24.62 01/03/2025 10:27 AM EDT Plan of Treatment Upcoming Encounters Date Type Department Care Team (Late st Contact Info) Description 04/08/2025 9:00 AM EDT Office Visit [facility] [address] [place] [address] Rogelio Elam MD [address] [place] [address] 12/03/2025 11:00 AM EDT Office Visit [facility] [address] [place] [address] April Ibrahim PA [address] [place] [address] Health Maintenance Due Date Last Done Comments CT Colonography 1957 FIT 1955 FOBT 1955 Lung Cancer Screening Shared Decision Making 1955 Sigmoidoscopy 1955 Pneumococcal Vaccine: 65+ Years (1 of 2 - PCV) 01/29/1976 Medicare Annual Wellness (AWV) 12/13/2024 12/14/2023, 08/08/2023, 09/13/2022 Influenza Vaccine (Season Ended) 2025 FIT-DNA 06/21/2025 06/21/2022 Mammogram 12/01/2025 11/29/2023 Postponed from 11/28/2024 (Other Medical Reasons) Colonoscopy 01/15/2027 01/16/2024 Colorectal Cancer Screening 01/15/2027 Procedures Procedure Name Priority Date/Time Associated Diagnosis Comments CRYOTHERAPY SKIN LESION Routine 12/03/2024 10:43 AM EDT Actinic keratosis CRYOTHERAPY SKIN LESION Routine 12/03/2024 10:41 AM EDT Inflamed seborrheic keratosis MM TOMOSYNTHESIS SCREENING BI 11/29/2023 11:25 AM EDT from Last 3 Months or Most Recently Relevant to Health Maintenance Results * Cryotherapy, skin lesion (12/03/2024 10:43 AM EDT) April Vickm PA DERM PROCEDURE ORDERABLES Fabiana l Result * Cryotherapy, skin lesion (12/03/2024 10:41 AM EDT) Aprileber Vickm PA DERM PROCEDURE ORDERABLES Fabiana l Result * MM TOMOSYNTHESIS SCREENING BI (11/29/2023 11:25 AM EDT) Anatomical Region Laterality Modality Other 11/29/2023 11:2 5 AM EDT Narrative 11/29/2023 11:26 [place] [address] Mammography Report Signed Patient: NADYA KUHN MR#: [id number] : 1955 Acct:[id number] Age/Sex: 68 / F ADM Date: 11/29/23 Loc: MAMMO Attending Dr: Shaikh Maude Ellsworth Ordering Physician: Shaikh Jodee Santoro Results: Date of Service: 11/29/23 Follow Up: Procedure(s): MM tomosynthesis screening BI Accession Number(s): [id number] cc: Shaikh Jodee Santoro Patient Name: NADYA KUHN MR#: [id number] : 1955 Exam Date: 11/29/2023 Ordering Doctor: Shaikh Rosa Santoro . RADIOLOGY REPORT PROCEDURE: MM TOMOSYNTHESIS SCREENING BI COMPARISON: MG MAMM SCREEN 3D ARCHIE CAD, 10/27/2022. INDICATIONS: screening Calculator Name NCI Breast Cancer Risk Assessment Tool 5 Year Breast Cancer Risk 1.30% Lifetime Breast Cancer Risk 4.80% Personal Breast Cancer No Personal Ovarian Cancer No Treatments None Family Cancers None LOCATION: [facility] BREAST COMPOSITION: The breasts are heterogeneously dense,which may obscure small masses. FINDINGS: DIAGNOSTIC CATEGORY 1--NEGATIVE. NO CHANGE FROM COMPARISON ASSESSMENT. Scattered benign-appearing lymph nodes are present. RIGHT BREAST: No significant suspicious finding. LEFT BREAST: No significant suspicious finding. RECOMMENDATIONS: ROUTINE MAMMOGRAM AND CLINICAL EVALUATION IN 12 MONTHS. PLEASE NOTE: A NORMAL MAMMOGRAM DOES NOT EXCLUDE THE POSSIBILITY OF BREAST CANCER. A CLINICALLY SUSPICIOUS PALPABLE LUMP SHOULD BE BIOPSIED. Dictated by: Yaakov Loving MD on 11/29/2023 at 11:24 Approved by: Yaakov Loving MD on 11/29/2023 at 11:25 Dictated By: Yaakov Loving M.D. Signed By: 11/29/23 1126 DD/ 1125 TD/TT: Head Golf Professional: Procedure Note Radiology, Radiologist, MD - 11/29/2023 [place] [address] Mammography Report Signed Patient: NADYA KUHN LMR#: [id number] : 1955cct:[id number] Age/Sex: 68 / FADM Date: 11/29/23 Loc: MAMMO Attending Dr: Shaikh Maude Ellsworth Ordering Physician: Shaikh Jodee SantoroResults: Date of Service: 11/29/23Follow Up: Procedure(s): MM tomosynthesis screening BI Accession Number(s): [id number] cc: Shaikh Jodee Santoro Patient Name: NADYA KUHN MR#: [id number] : 1955 Exam Date: 11/29/2023 Ordering Doctor: Shaikh Rosa Thrasher RADIOLOGY REPORT PROCEDURE: MM TOMOSYNTHESIS SCREENING BI COMPARISON: MG MAMM SCREEN 3D ARCHIE CAD, 10/27/2022. INDICATIONS: screening Calculator Name NCI Breast Cancer Risk Assessment Tool 5 Year Breast Cancer Risk 1.30% Lifetime Breast Cancer Risk 4.80% Personal Breast Cancer No Personal Ovarian Cancer No Treatments None Family Cancers None LOCATION: [facility] BREAST COMPOSITION: The breasts are heterogeneously dense,which may obscure small masses. FINDINGS: DIAGNOSTIC CATEGORY 1--NEGATIVE. NO CHANGE FROM COMPARISON ASSESSMENT. Scattered benign-appearing lymph nodes are present. RIGHT BREAST: No significant suspicious finding. LEFT BREAST: No significant suspicious finding. RECOMMENDATIONS: ROUTINE MAMMOGRAM AND CLINICAL EVALUATION IN 12 MONTHS. PLEASE NOTE: A NORMAL MAMMOGRAM DOES NOT EXCLUDE THE POSSIBILITY OFBREAST CANCER. A CLINICALLY SUSPICIOUS PALPABLE LUMP SHOULD BE BIOPSIED. Dictated by: Yaakov Loving MD on 11/29/2023 at 11:24 Approved by: Yaakov Loving MD on 11/29/2023 at 11:25 Dictated By: Yaakov Loving M.D. Signed By:11/29/23 1126 DD/ 1125 TD/TT: Head Golf Professional: us Shaikh Maude [facility] Final Result from Last 3 Months or Most Recently Relevant to Health Maintenance Insurance [address] [place] [address] [facility] MEDICARE ADVANTAGE Care Teams Comprehensive Advisor Relationship Specialty Start Date End Date Rogelio Elam MD [address] [place] [address] PCP - General Family Medicine 06/18/24 Mabel Bearden NP Nurse Practitioner Family Medicine 05/15/24
--- OUTSIDE RECORDS SUMMARY | 2025-01-24 09:22 | XMS_ITS | Encounter Summary ---
Author Organization [facility] Address [address] [facility] [place] [address] Care Team Providers Care Blankbook Stitching Machine Operator Name Role Phone Mabel Bearden ARCHITECTURAL EXAMINER Unavailable [phone] Rogelio Elam MD Primary Care Provider [phone] Encounter Details Date Type Department Care Team (Late st Contact Info) Description 10/21/2024 Orders Only [facility] [address] [facility] [place] [address] Gabino Hurst MD [address] [place] [facility] [place] [address] Social History Tobacco Use Types Packs/Day Years Used Date Smoking Tobacco: Former Cigarettes 1 50 0 03/20/2003 - 03/20/2018 Passive Smoke Exposure: Past Smokeless Tobacco: Never Alcohol Use Standard Drinks/Week [...] week 06/11/2024 How often do you attend [facility] or oriental orthodox services? Never 06/11/2024 Do you belong to any clubs o r organizations such as confucianist groups, unions, fraternal or athletic groups, or [...] Recorded Patient Health Questionnaire-2 Score 0 10/03/2023 [facility] - Occupational Stress Questionnaire Answer Date Recorded [...] any time in the past 12 m [facility], were you homeless or living in a senior care (including now)? No 06/11/2024 Comments No Sex and Gender Information Value Date Recorded Sex Assigned at Not on file Legal Sex Female 5:23 PM EDT Gender Identity Not on file Sexual Orientation Not on file documented as of this encounter Plan of Treatment Upcoming Encounters Date Type Department Care Team (Late st Contact Info) Description 04/08/2025 9:00 AM EDT Office Visit [facility] [address] [place] [address] Rogelio Elam MD [address] [place] [address] 12/03/2025 11:00 AM EDT Office Visit [facility] [address] [place] [address] April Ibrahim PA [address] [place] [address] documented as of this encounter Procedures Procedure Name Priority Date/Time Associated Diagnosis Comments RHYTHM ECG, REPORT Routine 10/21/2024 1:27 PM EDT documented in this encounter Results * ECG 3 Lead (10/21/2024 1:27 PM EDT) us Gabino Hurst MD IN CLINIC/BEDSIDE ORDERABLES Final Result documented in this encounter Visit Diagnoses Not on filedocumented in this encounter Care Teams Blankbook Stitching Machine Operator Relationship Specialty Start Date End Date Rogelio Elam MD [address] [place] [phone] PCP - General Family Medicine 06/18/24 Mabel Bearden NP Nurse Practitioner Family Medicine 05/15/24 documented as of this encounter
--- OUTSIDE RECORDS SUMMARY | 2025-01-24 09:22 | XMS_ITS | Encounter Summary ---
Author Organization [facility] Address [address] [place] [address] Care Team Providers Care Spotlight Operator Name Role Phone Mabel Bearden GOVERNOR ASSEMBLER HYDRAULIC Unavailable [phone] Rogelio Elam MD Primary Care Provider [phone] Encounter Details Date Type Department Care Team (Late st Contact Info) Description 01/13/2025 Abstract [facility] [address] [place] [address] Rogelio Elam MD [address] [place] [address] Social History Tobacco Use Types Packs/Day Years [...] week 06/11/2024 How often do you attend [facility] or worship services? Never 06/11/2024 Do you belong to any clubs o r organizations such as mu-ism groups, unions, fraternal or athletic groups, or [...] Recorded Patient Health Questionnaire-2 Score 0 10/03/2023 [facility] of Occupat [facility] - Occupational Stress Questionnaire Answer Date Recorded [...] any time in the past 12 m [facility], were you homeless or living in a fci (including now)? No 06/11/2024 Comments No Sex [...] EDT Office Visit [facility] [address] [address] Rogelio Elam MD [address] [place] [address] 12/03/2025 11:00 AM EDT Office Visit [facility] [address] [place] [address] April Ibrahim PA [address] [place] [address] documented as of this encounter Visit Diagnoses Not on filedocumented in this encounter Care Teams Spotlight Operator Relationship Specialty Start Date End Date Rogelio Elam MD [address] [place] [phone] PCP - General Family Medicine 06/18/24 Mabel Bearden NP Nurse Practitioner Family Medicine 05/15/24 documented as of this encounter
--- OUTSIDE RECORDS SUMMARY | 2025-01-24 09:22 | XMS_ITS | Encounter Summary ---
Author Organization [facility] Address [address] [place] [address] Care Team Providers Care Media Executive Name Role Phone Shaikh LAWANDA Santoro Primary Care Provider [phone] Mabel Bearden MULTINEEDLE SHIRRER Unavailable [phone] Unallocated, Noms Provider Primary Care Provi ulysses Rogelio Elam MD Primary Care Provider [phone] Encounter Details Date Type Department Care Team (Late st Contact Info) Description 10/11/2023 Orders Only [facility] [address] [place] [address] Luis Carlton MD [address] [place] [address] Social History Tobacco Use Types Packs/Day Years Used Date Smoking Tobacco: Former Cigarettes Q uit: 03/20/2018 Passive Smoke Exposure: Past Smokeless Tobacco: Never Alcohol Use Standard Drinks/Week Comments Yes 14 (1 standard drink = 0.6 oz pu re alcohol) OCCASSIONAL PHQ-2 Answer Date Recorded Patient Health Questionnaire-2 Score 0 10/03/2023 Comments Unknown Sex and Gender Information Value Date Recorded Sex Assigned at Not on file Legal Sex Female 5:23 PM EDT Gender Identity Not on file Sexual Orientation Not on file documented as of this encounter Plan of Treatment Upcoming Encounters Date Type Department Care Team (Late st Contact Info) Description 04/08/2025 9:00 AM EDT Office Visit [facility] [address] [place] [address] Rogelio Elam MD [address] [place] [address] 12/03/2025 11:00 AM EDT Office Visit [facility] [address] [place] [address] April Ibrahim PA [address] [place] [address] documented as of this encounter Procedures Procedure Name Priority Date/Time Associated Diagnosis Comments MISCELLANEOUS LAB TEST Routine 10/11/2023 10:33 AM EDT documented in this encounter Results * - Miscellaneous Test (10/11/2023 10:33 AM EDT) Luis Carlton MD LAB BLOOD ORDERABLES Final Re sult documented in this encounter Visit Diagnoses Not on filedocumented in this encounter Care Teams Media Executive Relationship Specialty Start Date End Date Shaikh Santoro MD [address] [place] [address] PCP - General Internal Medicine 09/21/23 05/14/24 Unallocated, Bert Keating MD [address] [place] [address] PCP - General Family Medicine 05/15/24 06/17/24 Rogelio Elam MD [address] [place] [address] PCP - General Family Medicine 06/18/24 Mabel Bearden NP [address] [place] [address] Nurse Practitioner Family Medicine 05/15/24 documented as of this encounter
--- OUTSIDE RECORDS SUMMARY | 2025-01-24 09:22 | XMS_ITS | Encounter Summary ---
Author Organization [facility] Address [address] [place] [address] Care Team Providers Care Whip Operator Name Role Phone Shaikh LAWANDA Santoro Primary Care Provider [phone] Mabel Bearden MID LEVEL PRACTITIONER Unavailable [phone] Unallocated, Noms Provider Primary Care Provi ulysses Rogelio Elam MD Primary Care Provider [phone] Encounter Details Date Type Department Care Team (Late st Contact Info) Description 10/23/2023 Orders Only [facility] [address] [place] [address] Shaikh Santoro MD [address] [place] [address] Social History Tobacco Use Types Packs/Day Years [...] 9:00 AM EDT Office Visit [facility] [address] [place] [address] Rogelio Elam MD [address] [place] [address] 12/03/2025 11:00 AM EDT Office Visit [facility] [address] [place] [address] April Ibrahim PA [address] [place] [address] documented as of this encounter Procedures Procedure Name Priority Date/Time Associated Diagnosis Comments MISCELLANEOUS LAB TEST Routine 10/23/2023 1:21 PM EDT documented in this encounter Results * - Miscellaneous Test (10/23/2023 1:21 PM EDT) us Shaikh Maude WEBBER LAB BLOOD ORDERABLES Final Resu lt documented in this encounter Visit Diagnoses Not on filedocumented in this encounter Care Teams Whip Operator Relationship Specialty Start Date End Date Shaikh Santoro MD [address] [place] [address] PCP - General Internal Medicine 09/21/23 05/14/24 Unallocated, Maira Keating MD [address] [place] [address] PCP - General Family Medicine 05/15/24 06/17/24 Rogelio Elam MD [address] [place] [address] PCP - General Family Medicine 06/18/24 Mabel Bearden NP [address] [place] [address] Nurse Practitioner Family Medicine 05/15/24 documented as of this encounter
--- OUTSIDE RECORDS SUMMARY | 2025-01-24 09:22 | XMS_ITS | Encounter Summary ---
Author Organization [facility] Address [address] [place] [address] Care Team Providers Care Auto Parker Name Role Phone Shaikh LAWANDA Santoro Primary Care Provider [phone] Mabel Bearden SOAKER SODA WORKER Unavailable [phone] Unallocated, Noms Provider Primary Care Provi ulysses Rogelio Elam MD Primary Care Provider [phone] Encounter Details Date Type Department Care Team (Late st Contact Info) Description 11/29/2023 Clinisync Result Encounter [facility] External Department Unsolicited Shaikh Santoro MD [address] [place] [address] Social History Tobacco Use Types Packs/Day Years [...] 04/08/2025 9:00 AM EDT Office Visit [facility] [address] [place] [address] Rogelio Elam MD [address] [place] [address] 12/03/2025 11:00 AM EDT Office Visit [facility] [address] [place] [address] April Ibrahim PA [address] [place] [address] documented as of this encounter Procedures Procedure Name Priority Date/Time Associated Diagnosis Comments MM TOMOSYNTHESIS SCREENING BI 11/29/2023 11:25 AM EDT documented in this encounter Results * MM TOMOSYNTHESIS SCREENING BI (11/29/2023 11:25 AM EDT) Anatomical Region Laterality Modality Other 11/29/2023 11:2 5 AM EDT Narrative 11/29/2023 11:26 AM EDT [facility] [place] [id number] Mammography Report Signed Patient: NADYA KUHN MR#: [id number] : 1955 Acct:[id number] Age/Sex: 68 / F ADM Date: 11/29/23 Loc: MAMMO Attending Dr: Shaikh Maude Ellsworth Ordering Physician: Shaikh Jodee Santoro Results: Date of Service: 11/29/23 Follow Up: Procedure(s): MM tomosynthesis screening BI Accession Number(s): [id number] cc: Shaikh Jodee Santoro Patient Name: NADYA KUHN MR#: [id number] : 1955 Exam Date: 11/29/2023 Ordering Doctor: Shaikh Rosa Santoro . RADIOLOGY REPORT PROCEDURE: MM TOMOSYNTHESIS SCREENING BI COMPARISON: MG MAMM SCREEN 3D ARCIHE CAD, 10/27/2022. INDICATIONS: screening Calculator Name NCI Breast Cancer Risk Assessment Tool 5 Year Breast Cancer Risk 1.30% Lifetime Breast Cancer Risk 4.80% Personal Breast Cancer No Personal Ovarian Cancer No Treatments None Family Cancers None LOCATION: The [facility] BREAST COMPOSITION: The breasts are heterogeneously [...] Signed By: 11/29/23 1126 DD/ 1125 TD/TT: Site Engineer: Procedure Note Radiology, Radiologist, MD - 11/29/2023 [place] [address] Mammography Report Signed Patient: NADYA KUHN LMR#: [id number] : 1955cct:[id number] Age/Sex: 68 / FADM Date: 11/29/23 Loc: MAMMO Attending Dr: Shaikh Maude Ellsworth Ordering Physician: Shaikh Jodee SantoroResults: Date of Service: 11/29/23Follow Up: Procedure(s): MM tomosynthesis screening BI Accession Number(s): [id number] cc: Shaikh Jodee Santoro Patient Name: NADYA KUHN MR#: [id number] : 1955 Exam Date: 11/29/2023 Ordering Doctor: Shaikh Rosa Santoro . RADIOLOGY REPORT PROCEDURE: MM TOMOSYNTHESIS SCREENING BI COMPARISON: MG MAMM SCREEN 3D ARCHIE CAD, 10/27/2022. INDICATIONS: screening Calculator Name NCI Breast Cancer Risk Assessment Tool 5 Year Breast Cancer Risk 1.30% Lifetime Breast Cancer Risk 4.80% Personal Breast Cancer No Personal Ovarian Cancer No Treatments None Family Cancers None LOCATION: The [facility] BREAST COMPOSITION: The breasts are heterogeneously [...] M.D. Signed By:11/29/23 1126 DD/ 1125 TD/TT: Site Engineer: Shaikh Maude [facility] Final Result documented in this encounter Visit Diagnoses Not on filedocumented in this encounter Care Teams Auto Parker Relationship Specialty Start Date End Date Shaikh Santoro MD [address] [place] [address] PCP - General Internal Medicine 09/21/23 05/14/24 Unallocated, Noms MD Rishabh [address] [place] [address] PCP - General Family Medicine 05/15/24 06/17/24 Rogelio Elam MD [address] [place] [address] PCP - General Family Medicine 06/18/24 Mabel Bearden NP [address] [place] [address] Nurse Practitioner Family Medicine 05/15/24 documented as of this encounter
--- OUTSIDE RECORDS SUMMARY | 2025-01-24 09:22 | XMS_ITS | Encounter Summary ---
Author Organization [employer] [facility] tem Address [id number] [address] [place] [address] Care Team Providers Care Visual Associate Name Role Phone Rogelio Elam MD Primary Care Provider [phone] Encounter Details Date Type Department Care Team (Late st Contact Info) Description 12/09/2024 Orders Only [facility] [address] [place] [address] Natali Malhotra RN Chest pain, unspecified type (Primary Dx) Social History Tobacco Use Types Packs/Day Years [...] as of this encounter Plan of Treatment Scheduled Orders Name Type Priority Associated Diagnoses Orde r Schedule CBC Lab Routine Chest pain, unspecified type 1 Occurrences starting 12/09/2024 until 12/09/2025 Basic Metabolic Panel Lab Routine Chest pain, unspecified type 1 Occurrences starting 12/09/2024 until 12/09/2025 documented as of this encounter Visit Diagnoses Diagnosis Chest pain, unspecified type- Primary documented in this encounter Care Teams Visual Associate Relationship Specialty Start Date End Date Rogelio Elam MD PCP - General Family Medicine 10/17/24 documented as of this encounter
--- NOTE | 2025-01-24 09:26 | CT_ITS ---
The [address] [address] Patient Name: NURY RODRIGUEZ MRN: [id number] date: 1955 Sex: F Assigned Patient Location: CT Current Patient Location: CT Accession/Order Number: [id number] Exam Date: 01/24/2025 10:09 Report Date: 01/24/2025 10:14 At the request of: ASHVIN COLEMAN MD Procedure: CT lung screening low-dose LOW-DOSE SCREENING CHEST CT WITHOUT CONTRAST COMPARISON: 08/28/2023 CLINICAL DATA: Former smoker for approximately 40 years. Spiral axial unenhanced low-dose images were obtained through the chest. Images were reviewed using both narrow and wide window settings. This CT exam was performed using one or more following dose reduction techniques: Automated exposure control, adjustment of the mA and/or kV according to patient size, or use of iterative reconstruction technique. The heart is normal size. No pericardial effusion is seen. There is coronary artery calcification. No aortic aneurysm is identified. Minor plaque is present at the aortic arch and proximal great vessels. There are similar nonpathologic mediastinal lymph nodes. Thoracolumbar levoscoliotic curvature and degenerative changes are visualized at the spine. There is minimal scarring at the apices and lung bases. There is no developing consolidation, pleural effusion or pneumothorax. No pulmonary nodularity is seen. Limited imaging through the upper abdomen shows no contributory findings. CT/CT lung screening low-dose IMPRESSION: NO PULMONARY NODULARITY. Lung RADS category 1 - negative Twelve-month low-dose CT follow-up suggested. Impression dictated by: Mariel Melchor M.D. 01/24/2025 10:14 AM Dictation Location: [place] [address] Electronically authenticated by: [id number] Y Date: 01/24/2025 10:14
== END 2025-01-24 09:19 | disposition home or self-care (01) ==
LOC: CT 09:20
PROVIDERS: PCP Family Medicine; Visit Provider Family Medicine
DX: Z87.891 Personal history of nicotine dependence (principal)
CPT/HCPCS: 71271

== ENCOUNTER 2025-03-12 08:44 | Outpatient (OUT) | payer MEDICARE, SELFPAY ==
--- OUTSIDE RECORDS SUMMARY | 2024-09-12 08:55 | XMS_ITS ---
Author Organization [facility] Billing Info Address [address] [place] [address] Care Team Providers Care Honing Machine Operator Semiautomatic Name Role Phone Tanner Sandhu Primary Care Provider MEHUL Erickson Unavailable [phone] KEV MORENO Unavailable [phone] REASON FOR VISIT SURGERY INDICATION Encounters Encounter Location Date Provider Diagnosis [id number] NA BATISTA MD [address] [facility] [address] [place], [place] [id number] 09/12/2024 KEV MORENO Plan Of Treatment No Information Progress Notes * Nadya KUHN LDOB: [birth year] (69 yo F)Acc No.[id number]:09/12/2024 Patient: Nadya DELGADO :1955 A ge:69 Y S ex:Female Address:[address] [place] [address] [address], [place], [address] * true * Date: Generated for Printi ng/Faxing/eTransmitting on: 0 03/12/2025 08:46 AM EDT
--- OUTSIDE RECORDS SUMMARY | 2025-03-12 08:46 | XMS_ITS | Encounter Summary ---
Author Organization [facility] Address [address] [place] [address] Phone Care Team Providers Care Beater Engineer Name Role Phone Rogelio Elam MD Primary Care Provider + Encounter Details Date Type Department Care Team (Late st Contact Info) Description 10/10/2023 Scanned Document [facility] [address] [place] [id number] Scanning, Generic Provider Social History Tobacco Use [...] on filedocumented in this encounter Care Teams Beater Engineer Relationship Specialty Start Date End Date Rogelio Elam MD [address] [place] [address] PCP - General Family Medicine 12/10/24 documented as of this encounter
--- OUTSIDE RECORDS SUMMARY | 2025-03-12 08:46 | XMS_ITS | Encounter Summary ---
Author Organization [facility] Address [address] [place] [place] [address] Care Team Providers Care Ocean Rescue Lieutenant Name Role Phone Shaikh LAWANDA Santoro Primary Care Provider [phone] Mabel Bearden STAKING TECHNICIAN Unavailable [phone] Unallocated, Noms Provider Primary Care Provi ulysses Rogelio Elam MD Primary Care Provider [phone] Encounter Details Date Type Department Care Team (Late st Contact Info) Description 10/11/2023 Orders Only [facility] [address] [place] [address] Luis Carlton MD [address] [place] [address] Social History Tobacco Use Types Packs/Day [...] Care Team (Late st Contact Info) Description 12/03/2025 11:00 AM EDT Office Visit [facility] [address] [place] [address] April Ibrahim PA [address] [place] [address] documented as of this encounter Procedures Procedure Name Priority Date/Time Associated Diagnosis Comments MISCELLANEOUS LAB TEST Routine 10/11/2023 10:33 AM EDT documented in this encounter Results * - Miscellaneous Test (10/11/2023 10:33 AM EDT) us Luis Carlton MD LAB BLOOD ORDERABLES Final Re sult documented in this encounter Visit Diagnoses Not on filedocumented in this encounter Care Teams Ocean Rescue Lieutenant Relationship Specialty Start Date End Date Shaikh Santoro MD [address] [place] [address] PCP - General Internal Medicine 09/21/23 05/14/24 Unallocated, Noms MD Rishabh [address] [place] [address] PCP - General Family Medicine 05/15/24 06/17/24 Rogelio Elam MD [address] [place] [address] PCP - General Family Medicine 06/18/24 Mabel Bearden NP [address] [place] [address] Nurse Practitioner Family Medicine 05/15/24 documented as of this encounter
--- OUTSIDE RECORDS SUMMARY | 2025-03-12 08:46 | XMS_ITS | Clinical Summary ---
Author Organization [employer] tem Address [id number] [address] [place] [address] Care Team Providers Care Xm1 Tank Driver Name Role Phone Rogelio Elam MD Primary Care Provider [phone] Allergies No known active allergies Medications rosuvastatin [...] Noted Date Diagnosed Date Chest pain 10/17/2024 Family History Medical History Relation Name Comments [...] 10/17/2025 10/17/2024 Medical Devices Not on file Insurance [employer] MEDICARE Care Teams Xm1 Tank Driver Relationship Specialty Start Date End Date Rogelio Elam MD PCP - General Family Medicine 10/17/24
--- OUTSIDE RECORDS SUMMARY | 2025-03-12 08:46 | XMS_ITS | Encounter Summary ---
Author Organization [facility] Address [address] [place] [address] Care Team Providers Care Freight Manager Name Role Phone Mabel Bearden CORN SHELLER OPERATOR Unavailable [phone] Rogelio Elam MD Primary Care Provider [phone] Encounter Details Date Type Department Care Team (Late st Contact Info) Description 02/27/2025 Telephone [facility] [address] [place] [address] Rogelio Elam MD [address] [place] [address] Social History Tobacco Use Types Packs/Day Years [...] week 06/11/2024 How often do you attend [facility] or advent services? Never 06/11/2024 Do you belong to any clubs o r organizations such as restorationism groups, unions, fraternal or athletic groups, or [...] Recorded Patient Health Questionnaire-2 Score 0 10/03/2023 [facility] - Occupational Stress Questionnaire Answer Date [...] any time in the past 12 m [facility], were you homeless or living in a [facility] (including now)? No 06/11/2024 Comments No Sex and Gender Information Value Date Recorded Sex Assigned at Not on file Legal Sex Female 5:23 PM EDT Gender Identity Not on file Sexual Orientation Not on file documented as of this encounter Miscellaneous Notes * Telephone Encounter - Rogelio Elam MD - 02/27/2025 12:27 PM EDT Please fax. * Telephone Encounter - STACEY GONZALEZ - 02/27/2025 10:45 AM EDT Patient would like order for mammogram sent to [facility] documented in this encounter Plan of Treatment Upcoming Encounters Date Type Department Care Team (Late st Contact Info) Description 12/03/2025 11:00 AM EDT Office Visit [facility] [address] [place] [address] April Ibrahim PA [address] [place] [address] Scheduled Orders Name Type Priority Associated Diagnoses Orde r Schedule Bilateral screening mammogram Imaging Routine Breast cancer screening by mammogram Expected: 02/27/2025, Expires: 04/29/2026 documented as of this encounter Visit Diagnoses Diagnosis Breast cancer screening by mammogram- Primary documented in this encounter Care Teams Freight Manager Relationship Specialty Start Date End Date Rogelio Elam MD [address] [place] [address] PCP - General Family Medicine 06/18/24 Mabel Bearden NP Nurse Practitioner Family Medicine 05/15/24 documented as of this encounter
--- OUTSIDE RECORDS SUMMARY | 2025-03-12 08:46 | XMS_ITS | Encounter Summary ---
Author Organization [facility] Address [address] [place] [address] Care Team Providers Care Correction Worker Name Role Phone Mabel Bearden SUPERVISOR REAL ESTATE OFFICE Unavailable [phone] Rogelio Elam MD Primary Care Provider [phone] Encounter Details Date Type Department Care Team (Late st Contact Info) Description 01/13/2025 Abstract [facility] [address] [place] [address] Rogelio Elam MD [address] [place] [address] Social History Tobacco Use Types Packs/Day Years [...] week 06/11/2024 How often do you attend [facility] or tenriism services? Never 06/11/2024 Do you belong to any clubs o r organizations such as moravian groups, unions, fraternal or athletic groups, or [...] Patient Health Questionnaire-2 Score 0 10/03/2023 [facility] - Occupational Stress Questionnaire Answer Date Recorded [...] any time in the past 12 m [facility], were you homeless or living in a [facility] (including now)? No 06/11/2024 Comments No Sex and Gender Information Value Date Recorded Sex Assigned at Not on file Legal Sex Female 5:23 PM EDT Gender Identity Not on file Sexual Orientation Not on file documented as of this encounter Plan of Treatment Upcoming Encounters Date Type Department Care Team (Late st Contact Info) Description 12/03/2025 11:00 AM EDT Office Visit [facility] [address] [place] [address] April Ibrahim PA [address] [place] [address] documented as of this encounter Visit Diagnoses Not on filedocumented in this encounter Care Teams Correction Worker Relationship Specialty Start Date End Date Rogelio Elam MD [address] [place] [address] PCP - General Family Medicine 06/18/24 Mabel Bearden NP Nurse Practitioner Family Medicine 05/15/24 documented as of this encounter
--- OUTSIDE RECORDS SUMMARY | 2025-03-12 08:46 | XMS_ITS | Clinical Summary ---
Author Organization [facility] Address [address] [place] [address] Care Team Providers Care Residential Program Coordinator Name Role Phone Mabel Bearden HOTEL DIRECTOR Unavailable [phone] Rogelio Coleman MD Primary Care Provider [phone] Allergies No known active allergies Medications rosuvastatin (Crestor) 20 MG tabletIndications: Hyperlipidemia, unspecified hyperlipidemia type Take 1 tablet (20 mg) by mouth in the morning. 90 tablet 1 5 Active rosuvastatin (Crestor) 20 MG tabletIndications: Hyperlipidemia, unspecified hyperlipidemia type Take 1 tablet (20 mg) by mouth in the morning. 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 Pre-operative clearance 10/03/202312/2024 Assessment & Plan (10/03/2023 10:18 AM EST): [...] Encounters Date Type Department Care Team Description 02/27/2025 Telephone [facility] [address] [place] [address] Rogelio Coleman MD 02/17/2025 Refill [facility] [address] [place] [address] Rogelio Coleman MD Hyperlipidemia, unspecified hyperlipidemia type 01/24/2025 Results Follow-Up [facility] [address] [place] [address] Rogelio Coleman MD 01/24/2025 Clinisync Result Encounter [facility] External Department Unsolicited Rogelio Coleman MD 01/13/2025 Abstract [facility] [address] [place] [address] Rogelio Coleman MD 01/03/2025 10:30 AM EDT Office Visit [facility] [address] [place] [address] Rogelio Coleman MD Mixed hyperlipidemia (Primary Dx); Former smoker; Centrilobular emphysema (HCC) 01/03/2025 Telephone [facility] [address] [place] [address] Rogelio Coleman MD 01/03/2025 Bamboo flowsheet [facility] [address] [place] [address] Rogelio Coleman MD 01/01/2025 Travel from Last 3 Months Family History Medical History Relation Name Comments Hyperlipidemia Brother Luis Hypertension Brother Luis Hyperlipidemia Father Luis Hypertension Father Luis Heart failure Mother Mary Hyperlipidemia Mother Mary Hypertension Mother Mary Osteoarthritis Mother Mary Rheum arthritis Mother Mary Relation Name Status Comments Brother Luis Father Luis Mother Mary Social History Tobacco Use Types [...] often do you attend chur ch or tenriism services? Never 06/11/2024 Do you belong to any clubs o r organizations such as tenriism groups, unions, fraternal or athletic groups, or [...] Recorded Patient Health Questionnaire-2 Score 0 10/03/2023 [facility] - Occupational Stress [...] any time in the past 12 m [facility], were you homeless or living in a senior living (including now)? No 06/11/2024 Comments No Sex [...] Dermatology [address] [place] [address] April Ibrahim PA [address] [place] [address] Health Maintenance Due Date Last Done Comments CT Colonography 1955 FIT 1955 FOBT 1955 Lung Cancer Screening Shared Decision Making 1955 Sigmoidoscopy 1955 Pneumococcal Vaccine: 65+ Years (1 of 2 - PCV) 01/29/1976 Medicare Annual Wellness (AWV) 12/13/2024 12/14/2023, 08/08/2023, 09/13/2022 Influenza Vaccine (#1) 2025 FIT-DNA 06/21/2025 06/21/2022 Mammogram 12/01/2025 11/29/2023 Postponed from 11/28/2024 (Other Medical Reasons) Colonoscopy 01/15/2027 01/16/2024 Colorectal Cancer Screening 01/15/2027 Procedures Procedure Name Priority Date/Time Associated Diagnosis Comments CT LUNG SCREENING LOW DOSE 01/24/2025 10:14 AM EDT MM TOMOSYNTHESIS SCREENING BI 11/29/2023 11:25 AM EDT from Last 3 Months or Most Recently Relevant to Health Maintenance Results * CT LUNG SCREENING LOW DOSE (01/24/2025 10:14 AM EDT) Anatomical Region Laterality Modality Other 01/24/2025 10:1 4 AM EDT Narrative 01/24/2025 10:17 AM EDT [facility] [place] [id number] CT Scan Report Signed Patient: NADYA KUHN MR#: [id number] : 1955 Acct:[id number] Age/Sex: 69 / F ADM Date: 01/24/25 Loc: CT Attending Dr: Rogelio Coleman M.D. Ordering Physician: Rogelio Coleman M.D. Date of Service: 01/24/25 Procedure(s): CT lung screening low-dose Accession Number(s): [id number] cc: Rogelio Coleman M.D. [address] [address] Patient Name: NADYA KUHN MRN: [facility]:[id number] date: 1955 Sex: F Assigned Patient Location: CT Current Patient Location: CT Accession/Order Number: [id number] Exam Date: 01/24/2025 10:09 Report Date: 01/24/2025 10:14 At the request of: ROGELIO COLEMAN MD Procedure: CT lung screening low-dose LOW-DOSE SCREENING CHEST CT WITHOUT CONTRAST COMPARISON: 08/28/2023 CLINICAL DATA: Former smoker for approximately 40 years. Spiral axial unenhanced low-dose images were obtained through the chest. Images were reviewed using both narrow and wide window settings. This CT exam was performed using one or more following dose reduction techniques: Automated exposure control, adjustment of the mA and/or kV according to patient size, or use of iterative reconstruction technique. The heart is normal size. No pericardial effusion is seen. There is coronary artery calcification. No aortic aneurysm is identified. Minor plaque is present at the aortic arch and proximal great vessels. There are similar nonpathologic mediastinal lymph nodes. Thoracolumbar levoscoliotic curvature and degenerative changes are visualized at the spine. There is minimal scarring at the apices and lung bases. There is no developing consolidation, pleural effusion or pneumothorax. No pulmonary nodularity is seen. Limited imaging through the upper abdomen shows no contributory findings. CT/CT lung screening low-dose IMPRESSION: NO PULMONARY NODULARITY. Lung RADS category 1 - negative Twelve-month low-dose CT follow-up suggested. Impression dictated by: Mariel Melchor M.D. 01/24/2025 10:14 AM Dictation Location: [place] [address] Electronically authenticated by: [id number] Y Date: 01/24/2025 10:14 Dictated By: Mariel Melchor M.D. Signed By: 01/24/25 1017 DD/ 1014 TD/TT: Sample Sewer: Procedure Note Radiology, Radiologist, MD - 01/24/2025 [place] [address] CT Scan Report Signed Patient: NADYA KUHN LMR#: [id number] : 1955cct:[id number] Age/Sex: 69 / FADM Date: 01/24/25 Loc: CT Attending Dr: Rogelio Coleman M.D. Ordering Physician: Rogelio Coleman M.D. Date of Service: 01/24/25 Procedure(s): CT lung screening low-dose Accession Number(s): [id number] cc: Rogelio Coleman M.D. [facility] [place] [address] Patient Name: NADYA KUHN MRN: [facility]:[id number] date: 1955 Sex: F Assigned Patient Location: CT Current Patient Location: CT Accession/Order Number: [id number] Exam Date: 01/24/2025 10:09 Report Date: 01/24/2025 10:14 At the request of: ROGELIO COLEMAN MD Procedure: CT lung screening low-dose LOW-DOSE SCREENING CHEST CT WITHOUT CONTRAST COMPARISON: 08/28/2023 CLINICAL DATA: Former smoker for approximately 40 years. Spiral axial unenhanced low-dose images were obtained through the chest. Images were reviewed using both narrow and wide window settings. This CTexam was performed using one or more following dose reduction techniques:Automated exposure control, adjustment of the mA and/or kV according to patientsize, or use of iterative reconstruction technique. The heart is normal size. No pericardial effusion is seen. There iscoronary artery calcification. No aortic aneurysm is identified. Minor plaque is present at the aortic arch and proximal great vessels. There are similar nonpathologic mediastinal lymph nodes. Thoracolumbar levoscolioticcurvature and degenerative changes are visualized at the spine. There is minimal scarring at the apices and lung bases. There is no developing consolidation, pleural effusion or pneumothorax. No pulmonary nodularity is seen. Limited imaging through the upper abdomen shows no contributory findings. CT/CT lung screening low-dose IMPRESSION: NO PULMONARY NODULARITY. Lung RADS category 1 - negative Twelve-month low-dose CT follow-up suggested. Impression dictated by: Mariel Melchor M.D. 01/24/2025 10:14 AM Dictation Location: [place] [address] Electronically authenticated by: [id number] Y Date: 0:14 Dictated By: Mariel Melchor M.D. Signed By:01/24/25 1017 DD/ 1014 TD/TT: Sample Sewer: Rogelio Coleman MD [facility] Final Result * MM TOMOSYNTHESIS SCREENING BI (11/29/2023 11:25 AM EDT) Anatomical Region Laterality Modality Other 11/29/2023 11:2 5 AM EDT Narrative 11/29/2023 11:26 [place] [address] Mammography Report Signed Patient: NADYA KUHN MR#: [id number] : 1955 Acct:[id number] Age/Sex: 68 / F ADM Date: 11/29/23 Loc: MAMMO Attending Dr: Shaikh Maude Ellsworth Ordering Physician: Shaikh Jodee Santoro Results: Date of Service: 11/29/23 Follow Up: Procedure(s): MM tomosynthesis screening BI Accession Number(s): [id number] cc: Shaikh Jodee Santoro Patient Name: NADYA KUHN MR#: [id number] : 1955 Exam Date: 11/29/2023 Ordering Doctor: Shaikh Rosa Thrasher RADIOLOGY REPORT PROCEDURE: MM TOMOSYNTHESIS SCREENING BI COMPARISON: MG MAMM SCREEN 3D ARCHIE CAD, 10/27/2022. INDICATIONS: screening Calculator Name NCI Breast Cancer Risk Assessment Tool 5 Year Breast Cancer Risk 1.30% Lifetime Breast Cancer Risk 4.80% Personal Breast Cancer No Personal Ovarian Cancer No Treatments None Family Cancers None LOCATION: [facility] BREAST COMPOSITION: The breasts are heterogeneously [...] Signed By: 11/29/23 1126 DD/ 1125 TD/TT: Sample Sewer: Procedure Note Radiology, Radiologist, - 11/29/2023 [place] [address] Mammography Report Signed Patient: NADYA KUHN LMR#: [id number] : 1955cct:[id number] Age/Sex: 68 / FADM Date: 11/29/23 Loc: MAMMO Attending Dr: Shaikh Maude Ellsworth Ordering Physician: Shaikh Jodee SantoroResults: Date of Service: 11/29/23Follow Up: Procedure(s): MM tomosynthesis screening BI Accession Number(s): [id number] cc: Shaikh Jodee Santoro Patient Name: NADYA KUHN MR#: [id number] : 1955 Exam Date: 11/29/2023 Ordering Doctor: Shaikh Rosa Santoro . RADIOLOGY REPORT PROCEDURE: MM TOMOSYNTHESIS SCREENING BI COMPARISON: MG MAMM SCREEN 3D ARCHIE CAD, 10/27/2022. INDICATIONS: screening Calculator Name NCI Breast Cancer Risk Assessment Tool 5 Year Breast Cancer Risk 1.30% Lifetime Breast Cancer Risk 4.80% Personal Breast Cancer No Personal Ovarian Cancer No Treatments None Family Cancers None LOCATION: [facility] BREAST COMPOSITION: The breasts are heterogeneously [...] M.D. Signed By:11/29/23 1126 DD/ 1125 TD/TT: Sample Sewer: Shaikh Maude [facility] Final Result from Last 3 Months or Most Recently Relevant to Health Maintenance Insurance [address] [place] [id number] [facility] MEDICARE ADVANTAGE Care Teams Residential Program Coordinator Relationship Specialty Start Date End Date Rogelio Coleman MD [address] [place] [address] PCP - General Family Medicine 06/18/24 Mabel Bearden NP Nurse Practitioner Family Medicine 05/15/24
--- OUTSIDE RECORDS SUMMARY | 2025-03-12 08:46 | XMS_ITS | Encounter Summary ---
Author Organization [facility] tem Address [id number] [address] [place] [address] Care Team Providers Care Master Printer Name Role Phone Rogelio Elam MD Primary Care Provider [phone] Encounter Details Date Type Department Care Team (Late st Contact Info) Description 12/09/2024 Orders Only [facility] [address] [place] [address] Natali Malhotra RN Chest pain, [...] Primary documented in this encounter Care Teams Master Printer Relationship Specialty Start Date End Date Rogelio Elam MD PCP - General Family Medicine 10/17/24 documented as of this encounter
--- OUTSIDE RECORDS SUMMARY | 2025-03-12 08:46 | XMS_ITS | Encounter Summary ---
Author Organization [facility] Address [address] [facility] [place] [address] Care Team Providers Care Speedometer Inspector Name Role Phone Shaikh LAWANDA Santoro Primary Care Provider [phone] Mabel Bearden APARTMENT RENTAL AGENT Unavailable [phone] Unallocated, Noms Provider Primary Care Provi ulysses Rogelio Elam MD Primary Care Provider Encounter Details Date Type Department Care Team (Late st Contact Info) Description 11/29/2023 Clinisync Result Encounter [facility] External Department Unsolicited Shaikh Santoro MD [address] [place] [facility] [place] [address] Social History Tobacco Use Types Packs/Day Years [...] Description 12/03/2025 11:00 AM EDT Office Visit [facility] [address] [place] [address] April Ibrahim PA [address] [place] [address] documented as of this encounter Procedures Procedure Name Priority Date/Time Associated Diagnosis Comments MM TOMOSYNTHESIS SCREENING BI 11/29/2023 11:25 AM EDT documented in this encounter Results * MM TOMOSYNTHESIS SCREENING BI (11/29/2023 11:25 AM EDT) Anatomical Region Laterality Modality Other 11/29/2023 11:2 5 AM EDT Narrative 11/29/2023 11:26 AM EDT The [address] [address] Mammography Report Signed Patient: NADYA KUHN MR#: [id number] : 1955 Acct:[id number] Age/Sex: 68 / F ADM Date: 11/29/23 Loc: MAMMO Attending Dr: Shaikh Maude Ellsworth Ordering Physician: Shaikh Jodee Santoro Results: Date of Service: 11/29/23 Follow Up: Procedure(s): MM tomosynthesis screening BI Accession Number(s): [id number] cc: Shaikh Jodee Santoro Patient Name: NADYA KUHN MR#: [id number] : 1955 Exam Date: 11/29/2023 Ordering Doctor: Shaikh Rosa Santoro . RADIOLOGY REPORT PROCEDURE: MM TOMOSYNTHESIS SCREENING BI COMPARISON: MG MAMM SCREEN 3D ARCHIE CAD, 10/27/2022. INDICATIONS: screening Calculator Name NCI Breast Cancer Risk Assessment Tool 5 Year Breast Cancer Risk 1.30% Lifetime Breast Cancer Risk 4.80% Personal Breast Cancer No Personal Ovarian Cancer No Treatments None Family Cancers None LOCATION: [facility] BREAST COMPOSITION: The breasts are heterogeneously dense,which [...] Signed By: 11/29/23 1126 DD/ 1125 TD/TT: Rolled Gold Plater: Procedure Note Radiology, Radiologist, MD - 11/29/2023 [place] [address] Mammography Report Signed Patient: NADYA KUHN LMR#: [id number] : 1955cct:[id number] Age/Sex: 68 / FADM Date: 11/29/23 Loc: MAMMO Attending Dr: Shaikh Maude Ellsworth Ordering Physician: Shaikh Jodee SantoroResults: Date of Service: 11/29/23Follow Up: Procedure(s): MM tomosynthesis screening BI Accession Number(s): [id number] cc: Shaikh Jodee Santoro Patient Name: NADYA KUHN MR#: [id number] : 1955 Exam Date: 11/29/2023 Ordering Doctor: Shaikh Rosa Thrasher RADIOLOGY REPORT PROCEDURE: MM TOMOSYNTHESIS SCREENING BI COMPARISON: MG MAMM SCREEN 3D ARCHIE CAD, 10/27/2022. INDICATIONS: screening Calculator Name NCI Breast Cancer Risk Assessment Tool 5 Year Breast Cancer Risk 1.30% Lifetime Breast Cancer Risk 4.80% Personal Breast Cancer No Personal Ovarian Cancer No Treatments None Family Cancers None LOCATION: [facility] BREAST COMPOSITION: The breasts are heterogeneously dense,which [...] M.D. Signed By:11/29/23 1126 DD/ 1125 TD/TT: Rolled Gold Plater: us Shaikh Maude [facility] Final Result documented in this encounter Visit Diagnoses Not on filedocumented in this encounter Care Teams Speedometer Inspector Relationship Specialty Start Date End Date Shaikh Santoro MD [address] [place] [address] PCP - General Internal Medicine 09/21/23 05/14/24 Unallocated, Bert Keating MD [address] [place] [address] PCP - General Family Medicine 05/15/24 06/17/24 Rogelio Elam MD [address] [place] [address] PCP - General Family Medicine 06/18/24 Mabel Bearden NP [address] [place] [address] Nurse Practitioner Family Medicine 05/15/24 documented as of this encounter
--- OUTSIDE RECORDS SUMMARY | 2025-03-12 08:46 | XMS_ITS | Encounter Summary ---
Author Organization [employer] [facility] Address [id number] [address] [place] [address] Care Team Providers Care Sap Portal Developer Name Role Phone Rogelio Elam MD Primary Care Provider [phone] Encounter Details Date Type Department Care Team (Late st Contact Info) Description 12/09/2024 Orders Only [facility] [address] [place] [address] April Vu CMA Chest pain, unspecified type [...] type documented in this encounter Care Teams Sap Portal Developer Relationship Specialty Start Date End Date Rogelio Elam MD PCP - General Family Medicine 10/17/24 documented as of this encounter
--- OUTSIDE RECORDS SUMMARY | 2025-03-12 08:46 | XMS_ITS | Encounter Summary ---
Author Organization [facility] Address [address] [facility] [place] [address] Care Team Providers Care Firewall Administrator Name Role Phone Mabel Bearden CANDY BAR ATTENDANT Unavailable [phone] Rogelio Elam MD Primary Care Provider [phone] Encounter Details Date Type Department Care Team (Late st Contact Info) Description 10/21/2024 Orders Only [facility] [address] [facility] [address] Gabino Hurst MD [address] [facility] [place] [address] Social History Tobacco Use Types [...] week 06/11/2024 How often do you attend [facility] or taoist services? Never 06/11/2024 Do you belong to any clubs o r organizations such as taoism groups, unions, fraternal or athletic groups, or [...] Recorded Patient Health Questionnaire-2 Score 0 10/03/2023 [facility] - Occupational Stress Questionnaire Answer Date Recorded [...] any time in the past 12 m [facility], were you homeless or living in a jail (including now)? No 06/11/2024 Comments No Sex [...] Dermatology [address] [place] [address] April Ibrahim PA [address] [place] [address] documented as of this encounter Procedures Procedure Name Priority Date/Time Associated Diagnosis Comments RHYTHM ECG, REPORT Routine 10/21/2024 1:27 PM EDT documented in this encounter Results * ECG 3 Lead (10/21/2024 1:27 PM EDT) us Gabino Hurst MD IN CLINIC/BEDSIDE ORDERABLES Final Result documented in this encounter Visit Diagnoses Not on filedocumented in this encounter Care Teams Firewall Administrator Relationship Specialty Start Date End Date Rogelio Elam MD [address] [place] [address] PCP - General Family Medicine 06/18/24 Mabel Bearden NP Nurse Practitioner Family Medicine 05/15/24 documented as of this encounter
--- OUTSIDE RECORDS SUMMARY | 2025-03-12 08:46 | XMS_ITS | Encounter Summary ---
Author Organization [facility] Address [address] [place] [address] Care Team Providers Care Developmental Electronics Assembler Name Role Phone Shaikh LAWANDA Santoro Primary Care Provider [phone] Mabel Bearden CAD CAM PROGRAMMER Unavailable [phone] Unallocated, Noms Provider Primary Care Provi ulysses Rogelio Elam MD Primary Care Provider [phone] Encounter Details Date Type Department Care Team (Late st Contact Info) Description 10/23/2023 [facility] [address] [place] [address] Shaikh Santoro MD [address] [place] [address] Social History Tobacco Use Types Packs/Day Years [...] Dermatology [address] [place] [address] April Ibrahim PA [address] [place] [address] documented as of this encounter Procedures Procedure Name Priority Date/Time Associated Diagnosis Comments MISCELLANEOUS LAB TEST Routine 10/23/2023 1:21 PM EDT documented in this encounter Results * - Miscellaneous Test (10/23/2023 1:21 PM EDT) us Shaikh Maude WEBBER LAB BLOOD ORDERABLES Final Resu lt documented in this encounter Visit Diagnoses Not on filedocumented in this encounter Care Teams Developmental Electronics Assembler Relationship Specialty Start Date End Date Shaikh Santoro MD [address] [place] [address] PCP - General Internal Medicine 09/21/23 05/14/24 Unallocated, Kettys MD [address] [place] [address] PCP - General Family Medicine 05/15/24 06/17/24 Rogelio Elam MD [address] [place] [address] PCP - General Family Medicine 06/18/24 Mabel Bearden NP [address] [place] [address] Nurse Practitioner Family Medicine 05/15/24 documented as of this encounter
--- OUTSIDE RECORDS SUMMARY | 2025-03-12 08:46 | XMS_ITS | Patient Health Record ---
Author Organization [facility] Billing Info Address [address] [place] [address] Care Team Providers Care Straightener Hand Name Role Phone Tanner Sandhu Primary Care Provider MEHUL Erickson Unavailable [phone] KEV MORENO Unavailable [phone] Allergies Allergen (clinical drug ingredient) Drug/Non Drug Allergy documented on EMR Reaction Allergy Type Onset Date Status Penicillin Unknown Drug Allergy Active Reason For Referral No Information Medications Medication SIG (Take, Route, Frequency, Duration) Notes Start Date End Date Status Atorvastatin Calcium 20 MG 1 tablet Oral ly Once a day for 90 day(s) Active Aspirin 81 MG 1 tablet Orally ever y other day Active Calcium + D 315-200 MG-UNIT 1 tablet Ora lly Twice a day Active Social History Tobacco Use: Social History Observation Description Date Details (start date - stop date) Former Smoker NA - NA Tobacco Status: Question Answer Notes Patient is a former smoker Smokes 1 PPD Section Notes: Originally from [place], [place] . 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) Active confirmed Encounters Encounter Location Date Provider Diagnosis [id number] NA [address] [place], [place] [id number] 09/12/2024 KEV MORENO Plan Of Treatment Future Test Test Name Order Date CARDIO IQ(R) ADVANCED LIPID PANEL (Q-[id number]) 06/26/2018 ALT 02/13/2019 AST 02/13/2019 Lipid Panel(60393) 02/13/2019 Insurance Providers Payer Name Payer Address Payer Phone Subscriber Number Group Number Insured Name Patient Relationship to Insured Coverage Start Date Coverage End Date [employer] PPO POS PLAN [address] [address] [place], [place] [id number] Nadya Kuhn Self - patient is the insured Medical (General) History Medical History History ICD Code High cholesterol Surgical History Surgery Date(Month/Year) C section x2 tonsillectomy hip replacement, total, right 2017
--- OUTSIDE RECORDS SUMMARY | 2025-03-12 08:46 | XMS_ITS | Encounter Summary ---
Author Organization [facility] Address [address] [place] [address] Phone Care Team Providers Care Flush Tester Name Role Phone Rogelio Elam MD Primary Care Provider + Encounter Details Date Type Department Care Team (Late st Contact Info) Description 10/24/2024 Scanned Document [facility] [address] [place] [id number] Scanning, Generic Provider Social History Tobacco Use [...] on filedocumented in this encounter Care Teams Flush Tester Relationship Specialty Start Date End Date Rogelio Elam MD [address] [place] [address] PCP - General Family Medicine 12/10/24 documented as of this encounter
--- OUTSIDE RECORDS SUMMARY | 2025-03-12 08:46 | XMS_ITS | Encounter Summary ---
Author Organization [facility] Address [address] [place] [address] Care Team Providers Care Tie In Machine Operator Name Role Phone Mabel Bearden MANAGER RESORT Unavailable [phone] Rogelio Elam MD Primary Care Provider [phone] Encounter Details Date Type Department Care Team (Late st Contact Info) Description 01/24/2025 Results Follow-Up [facility] [address] [place] [address] Rogelio Elam MD [address] [place] [id number] Social History Tobacco Use Types Packs/Day Years [...] week 06/11/2024 How often do you attend [facility] or jew services? Never 06/11/2024 Do you belong to any clubs o r organizations such as buddhist groups, unions, fraternal or athletic groups, or [...] Recorded Patient Health Questionnaire-2 Score 0 10/03/2023 [facility] - Occupational Stress [...] any time in the past 12 m [facility], were you homeless or living in a [...] Dermatology [address] [place] [address] April Ibrahim PA [address] [place] [address] documented as of this encounter Visit Diagnoses Not on filedocumented in this encounter Care Teams Tie In Machine Operator Relationship Specialty Start Date End Date Rogelio Elam MD [address] [place] [address] PCP - General Family Medicine 06/18/24 Mabel Bearden NP Nurse Practitioner Family Medicine 05/15/24 documented as of this encounter
--- OUTSIDE RECORDS SUMMARY | 2025-03-12 08:46 | XMS_ITS | Encounter Summary ---
Author Organization [facility] Address [address] [place] [address] Care Team Providers Care Web Programmer Name Role Phone Shaikh LAWANDA Santoro Primary Care Provider [phone] Shaikh LAWANDA Santoro Primary Care Provider [phone] Mabel Bearden VOCATIONAL REHABILITATION SUPERVISOR Unavailable [phone] Unallocated, Bert Provider Primary Care Provi ulysses Rogelio Elam MD Primary Care Provider [phone] Encounter Details Date Type Department Care Team (Late st Contact Info) Description 08/28/2023 Clinisync Result Encounter [facility] External Department Unsolicited Shaikh Santoro MD [address] [place] [address] Social History Tobacco Use Types Packs/Day Years [...] Description 12/03/2025 11:00 AM EDT [facility] [address] [place] [address] April Ibrahim PA [address] [place] [address] documented as of this encounter Procedures Procedure Name Priority Date/Time Associated Diagnosis Comments CT LUNG SCREENING LOW DOSE 08/28/2023 10:21 AM EST [facility] VITAMIN B12 Routine 08/28/2023 10:12 AM EST [facility] FERRITIN Routine 08/28/2023 10:12 AM EST [facility] CMP (CMP) (FOR REMOTE [facility] USE) Routine 08/28/2023 10:12 AM EST ALL LIPID PROFILE (FASTING) Routine 08/28/2023 10:12 AM EST ALL CBC WITH AUTO DIFF Routine 08/28/2023 10:12 AM EST documented in this encounter Results * CT LUNG SCREENING LOW DOSE (08/28/2023 10:21 AM EST) Anatomical Region Laterality Modality Other 08/28/2023 10:2 1 AM EST Narrative 08/28/2023 10:24 AM EST [address] [address] [address] Scan Report Signed Patient: NADYA KUHN MR#: [id number] : 1955 Acct:[id number] Age/Sex: 68 / F ADM Date: 08/28/23 Loc: CT Attending Dr: Shaikh Maude Ellsworth Ordering Physician: Shaikh Jodee Santoro Date of Service: 08/28/23 Procedure(s): CT lung screening low-dose Accession Number(s): [id number] cc: Shaikh Jodee Santoro [address] [address] Patient Name: NADYA KUHN MRN: [facility]:[id number] date: 1955 Sex: F Assigned Patient Location: CT Current Patient Location: CT Accession/Order Number: [id number] Exam Date: 08/28/2023 09:50 Report Date: 08/28/2023 [...] Signed By: 08/28/23 1024 DD/ 1021 TD/TT: Correspondence Dictator: Procedure Note Radiology, Radiologist, MD - 08/28/2023 [place] [address] CT Scan Report Signed Patient: NADYA KUHN LMR#: [id number] : 7Acct:[id number] Age/Sex: 68 / FADM Date: 08/28/23 Loc: CT Attending Dr: Shaikh Maude Ellsworth Ordering Physician: Shaikh Jodee Santoro Date of Service: 08/28/23 Procedure(s): CT lung screening low-dose Accession Number(s): [id number] cc: Shaikh Jodee Santoro [address] [address] Patient Name: NADYA KUHN MRN: [id number] date: 1955 Sex: F Assigned Patient Location: CT Current Patient Location: CT Accession/Order Number: [id number] Exam Date: 08/28/2023 09:50 Report Date: 08/28/2023 [...] M.D. Signed By:08/28/23 1024 DD/ 1021 TD/TT: Correspondence Dictator: us Shaikh Maude [facility] Final Result * [facility] VITAMIN B12 (08/28/2023 10:12 AM EST) VITAMIN B12 350.0 193.0 - 986.0 pg/mL [facility] 08/28/2023 10:1 2 AM EST 08/28/2023 10:18 AM EST Narrative [facility] - 08/28/2023 2:51 PM EST Shaikh Maude [facility] Final Result Performing Organization Address City/[facility]/ZIP Co de Phone Number [facility] TB * (ABNORMAL) [facility] FERRITIN (08/28/2023 10:12 AM EST) Pathologist [facility] FERRITIN 331.0(H) 8.0 - 252.0 ng/mL [facility] 08/28/2023 10:1 2 AM EST 08/28/2023 10:18 AM EST Narrative [facility] - 08/28/2023 2:51 PM EST Shaikh Maude [facility] Final Result Performing Organization Address [facility] de Phone Number [facility] TB * (ABNORMAL) ALL LIPID PROFILE (FASTING) (08/28/2023 10:12 AM EST) Pathologist [facility] TRIGLYCERIDES 114 <=150 mg/dL [facility] CHOLESTEROL 258(H) <=200 mg/dL [facility] HDL CHOLESTEROL 74(H) 40 - 60 mg/dL TB Comment: > or =60 mg/dl - LOW CARDIOVASCULAR RISK <40 mg/dl - HIGH CARDIOVASCULAR RISK LDL CHOLESTEROL CALCULATED 162.0 mg/dL TB Comment: <100 mg/dl OPTIMAL 100-129 mg/dl NEAR OR ABOVE OPTIMAL 130-159 mg/dl BORDERLINE HIGH 160-189 mg/dl HIGH >190 mg/dl VERY HIGH VLDL CHOLESTEROL 22.8 mg/dL TB CHOL HDL RATIO 3.5 TB Comment: 3.3 - 4.4 LOW RISK 4.4 - 7.1 AVERAGE RISK 7.1 - 11.0 MODERATE RISK >11.0 HIGH RISK 08/28/2023 10:1 2 AM EST 08/28/2023 10:18 AM EST Narrative [facility] - 08/28/2023 11:24 AM EST us Shaikh Maude [facility] Final Result [facility] TB * (ABNORMAL) [facility] CMP (CMP) (FOR REMOTE [facility] USE) (08/28/2023 10:12 AM EST) SODIUM [...] 0.55 - 1.02 mg/dL [facility] TBH EGFR-AF ENGLISH >60 >=60 [facility] TBH EGFR-NON AF ENGLISH >60 >=60 [facility] BUN CREATININE RATIO 25.7 [...] [facility] Final Result [facility] TB * ALL CBC WITH AUTO DIFF (08/28/2023 [...] Narrative [facility] - 08/28/2023 10:28 AM EST us Shaikh Maude [facility] Final Result [facility] TB documented in this encounter Visit Diagnoses Not on filedocumented in this encounter Care Teams Web Programmer Relationship Specialty Start Date End Date Shaikh Santoro MD PCP - General Internal Medicine 07/31/22 09/20/23 Shaikh Santoro MD [address] [place] [address] PCP - General Internal Medicine 09/21/23 05/14/24 Unallocated, [facility] MD Rishabh [address] [place] [address] PCP - General Family Medicine 05/15/24 06/17/24 Rogelio Elam MD [address] [place] [address] PCP - General Family Medicine 06/18/24 Mabel Bearden NP [address] [place] [phone] Nurse Practitioner Family Medicine 05/15/24 documented as of this encounter
--- OUTSIDE RECORDS SUMMARY | 2025-03-12 08:46 | XMS_ITS | Encounter Summary ---
Author Organization [facility] Address [address] [place] [address] Phone Care Team Providers Care Consulting Services Project Manager Name Role Phone Rogelio Elam MD Primary Care Provider + Encounter Details Date Type Department Care Team (Late st Contact Info) Description 12/18/2024 Scanned Document [facility] [address] [place] [phone] Scanning, Generic Provider Social History Tobacco Use [...] documented as of this encounter Care Teams Consulting Services Project Manager Relationship Specialty Start Date End Date Rogelio Elam MD [address] [place] [address] PCP - General Family Medicine 12/10/24 documented as of this encounter
--- OUTSIDE RECORDS SUMMARY | 2025-03-12 08:47 | XMS_ITS | CCD ---
Author Organization [facility] Care Team Providers Care Barn Hand Name Role Phone FAWWAD, OLSEN H Admitting Unavailable FAWWAD, OLSEN H Attending Unavailable FAWWAD, OLSEN H Primary Care Unavailable DR HOLLIE LOVING V Consulting Unavailable FAWWAD, OLSEN H Consulting Unavailable FAWWAD, OLSEN H Admitting Unavailable FAWWAD, OLSEN H Attending Unavailable FAWWAD, OLSEN H Consulting Unavailable MD Luis Carlton II Attending Provider Luis Carlton II Unavailable NO FAMILY, PHYSICIAN Primary Care Provider Unava ilable MD Luis Carlton II Attending Provider [phone] MD Stefan Santoro Primary Care Provider MD Luis Carlton II Attending Provider MD Stefan Santoro Primary Care Provider [phone] MD Luis Carlton II Attending Provider MD Stefan Santoro Primary Care Provider MD Nazario Blue Attending Provider Tristian Bearden NP Unavailable Rogelio Coleman MD Primary Care Provider Unavailable Primary Care Provider UnavailNATALIA Caballero Referring Unav ailable Marii Rios MD Attending Provider [phone] Shaikh Santoro MD Primary Care Provider Marii Rios MD Attending Provider Fawwad MD, Olsen Primary Care Provider Unavailable Primary Care Provider Unavailnathan Coleman MD, Rogelio Primary Care Provider MARII HURST Attending Unavailable TRISTIAN BEARDEN Referring Unavaila ble ROGELIO COLEMAN Primary Care Unavailable ROGELIO COLEMAN A Primary Care Unavailable Marii Hurst Attending Unavailable Marii Hurst Admitting Unavailable Rogelio Coleman MD Primary Care Provider Luis Carlton MD Attending Provider [phone] Monisha HEALTH CARE CONSULTANT, Tristian Unavailable Papa WEBBER, Rogelio Tin Primary Care Provider Marii Hurst MD Attending Provider MICHAEL CARRILLO Attending Unavailable ROGELIO COLEMAN [facility] Care Unavailabl e TRISTIAN BEARDEN Attending Unavailabl e BILLY FINCH Attending Unavailable TRISTIAN BEARDEN Referring Unavailabl e PETER IBRAHIM Attending Unavailable ROGELIO COLEMAN Attending Unavailable TRISTIAN BEARDEN Attending UnavailShaikh Valencia MD Primary Care Provider [phone] Marii Rios MD Attending Provider Papa WEBBER, Rogelio Primary Care Provider Remy Olivarez DO Attending Provider [phone] Luis Carlton II Admitting Unavailabl Luis Alvarado II Attending Unavailabl e Rogelio Coleman Primary Care Unavailable Rogelio Coleman Primary Care Unavailable Marii Hurst Admitting Unavailable Marii Hurst Attending Unavailable Rogelio Coleman Primary Care Unavailable Remy Olivarez Admitting Unavailable Remy Olivarez Attending Unavailable Remy Olivarez Admitting Unavailable Remy Olivarez Attending Unavailable Rogelio Coleman Primary Care Unavailable Rogelio Coleman Primary Care Unavailable Marii Rios Admitting Unavailable Marii Rios Attending Unavailable Remy Olivarez Admitting Unavailable Remy Olivarez Attending Unavailable Rogelio Coleman Primary Care Unavailable Shaikh Santoro Primary Care Unavailable Marii Rios Admitting Unavailable Marii Rios Attending Unavailable Rogelio Coleman Primary Care Unavailable Marii Rios Admitting Unavailable Marii Rios Attending Unavailable Allergies Allergy Classification Reported Allergen(s) Allergy Type Date of Onset Reaction(s) Facility (1 source) ALLERGIES NOT ON FILE; Translations: [ALLERGIES NOT ON FILE] Propensity to adverse reactions (disorder) [facility] (2 sources) Penicillins Propensity to adverse reactions to drug 5 [facility] (2 sources) Sulfonamides (Antibiotic) Propensity to adverse reactions to drug 5 [facility] Medications Current Medications Medication Drug Class(es) Dates Sig (Normalized) Sig (Original) amoxicillin 500 mg oral tablet (12 sources) Penicillin-class Antibacterial Start: 01-30-2025 take 4 tablets by mouth once Start: 03-14-2024 End: 09-14-2024 take 4 tablets by mouth once Amoxicillin 500 mg tablet Discontinued 2000 MG PO once 4 March 14, 2024 12:00am September 14, 2024 10:59am aspirin 81 mg oral tablet (20 sources) Platelet Aggregation Inhibitor, Nonsteroidal Anti-inflammatory Drug Start: 12-12-2024 take 1 capsule by mouth once daily in the morning Aspirin 81 mg capsule Active 81 MG PO Every morning December 12, 2024 12:00am Complies with drug therapy Start: 12-10-2024 End: 12-10-2025 aspirin 81 mg chewable table t Indications: Abnormal cardiac CT angiography , Chest pain, unspecified type Chew 1 tablet (81 mg) once daily. 30 tablet 11 12/10/2024 12/10/2025 Active Start: 10-13-2023 End: 12-06-2023 take 1 tablet [...] mg / cholecalciferol 0.01 mg oral capsule (20 sources) Vitamin D Start: 10-10-19 take 1 capsule by mouth once daily Calcium Carbonate-Vitamin D3 600 mg-10 mcg (400 unit) capsule Active 1 CAP PO Daily October 10, 2023 12:00am Complies with drug therapy Start: 05-12-2023 calcium carbon ate-vitamin D3 600 mg-10 mcg (400 unit) capsule Calcium Carbonate-Vitamin D3 Active 1 CAP PO Daily October 10, 2023 12:00am 05/12/2023 Active Start: 05-12-2023 take 1 tablet by vi every twelve hours Calcium-Vitamin D 600-3.125 MG-MCG 1 tablet Orally Twice a day for 30 day(s) Apr, Active cholecalciferol 0.025 mg oral tablet (1 source) Vitamin D take 1 tablet by mouth once daily cholecalciferol (Vitamin D3) 25 mcg (1,000 units) tablet Take 1 tablet (25 mcg) by mouth once daily. Active magnesium oxide 400 mg oral tablet (3 sources) Start: 12-18-2024 take 1 tablet by mouth once daily Magnesium Oxide 400 mg magnesium tablet Active 400 MG PO Daily December 18, 2024 12:00am Complies with drug therapy take 1 tablet by mouth once tony y magnesium oxide (Mag-Ox) 400 mg (241.3 mg elemental) tablet Take 1 tablet (400 mg) by mouth once daily. Active meloxicam 15 mg oral tablet (3 sources) Nonsteroidal Anti-inflammatory Drug Start: 05-12-2023 take 1 tablet by mouth every twenty-four hours Meloxicam 15 MG 1 tablet Orally Once a day for 30 days Apr, Active metoprolol tartrate 50 mg oral tablet (1 source) beta-Adrenergic Neno Start: 10-17-2024 metoprolol tartrate (LOPRESSOR) 50 mg tablet Take [...] 10/17/2024 Active naproxen 500 mg oral tablet (20 sources) Nonsteroidal Anti-inflammatory Drug Start: 10-10-2023 take 1 tablet by mouth twice daily as needed for pain Naproxen 500 mg tablet Active 500 MG PO Twice daily as needed for pain October 10, 2023 12:00am FreeTextSig: TAKE 1 TABLET BY MOUTH 2 TIMES PER DAY NEEDED FOR PAIN Oral; Note: Source Status: Taking; Refills: 0; Qty: 180 Each; Provider: MAUDE OLSEN Complies with drug therapy naproxen (EC NAP ROSYN) 375 MG tablet,delayed release (DR/EC) EC tablet Take 500 mg by mouth 2 (two) times a day as needed for pain. Active take 1 tablet by vi twice daily as needed for pain Naproxen 500 MG TAKE 1 TABLET BY MOUTH 2 TIMES PER DAY NEEDED FOR PAIN Oral for 90 Days Active nitroglycerin 0.4 mg sublingual tablet (2 sources) Nitrate Vasodilator Start: 12-10-2024 End: 12-10-2025 Nitroglycerin 0.4 mg tablet, sublingual Active 0.4 MG SUBLINGUAL Q5M as needed for chest pain December 18, 2024 12:00am Complies with drug therapy rosuvastatin calcium 20 mg oral tablet (20 sources) HMG-CoA Reductase Inhibitor Start: 10-10-2023 End: 08-22-2024 take 1 tablet by mouth once daily in the morning Rosuvastatin 20 mg tablet Active 20 MG PO Every morning October 10, 2023 12:00am Complies with drug therapy traZODone hydrochloride 50 mg oral tablet (3 sources) Serotonin Reuptake Inhibitor Start: 01-22-2024 End: 07-20-2024 take 1 tablet by mouth at bedtime traZODone (Desyrel) 50 MG tablet Indications: Psychophysiological insomnia Take 1 tablet (50 mg) by mouth at bedtime 90 tablet 1 01/22/2024 06/18/2024 Discontinued (Med list cleanup) Completed/Discontinued Medications Medication Drug Class(es) Dates Sig (Normalized) Sig (Original) acetaminophen 500 mg oral tablet (20 sources) Start: 10-13-2023 End: 12-06-2023 take 2 [...] NOT RECONCILE UNTIL DOS:10/23/2023 MED TO BED acetaminophen 325 mg / HYDROcodone bitartrate 5 mg oral tablet (4 sources) Opioid Agonist Start: 11-05-2024 End: 12-12-2024 take 1 tablet by mouth every four to six hours as needed for pain Hydrocodone-Acetaminophen 5-325 mg tablet Discontinued 1 TAB PO EVERY 4-6 HOURS as needed for pain 10 November 05, 2024 December 12, 2024 9:17am to be used post op amoxicillin 875 mg / clavulanate 125 mg oral tablet (20 sources) Penicillin-class Antibacterial Start: 10-13-2023 End: 11-08-2023 Amoxicillin-Pot Clavulanate 875-125 mg tablet Discontinued TAB PO October 13, 2023 12:00am November 08, 2023 8:48am biotin 10 mg oral capsule (13 sources) Start: 01-12-2024 End: 11-06-2024 take 1 capsule by mouth once daily Biotin 10,000 mcg capsule Discontinued 62760 MCG PO Daily January 12, 2024 12:00am November 06, 2024 10:05am cefadroxil 500 mg oral capsule (20 sources) Cephalosporin Antibacterial Start: 10-13-2023 End: 11-08-2023 take 1 capsule by mouth every twelve hours Cefadroxil 500 mg capsule Discontinued 500 MG PO Q12H 14 October 13, 2023 12:00am November 08, 2023 8:48am DO NOT RECONCILE UNTIL DOS:10/23/2023 MED TO BED celecoxib 200 mg oral capsule (20 sources) Nonsteroidal Anti-inflammator y Drug Start: 10-13-2023 End: 12-06-2023 take 1 capsule by mouth twice daily Celecoxib 200 mg capsule Discontinued 200 MG PO Twice daily 60 October 13, 2023 12:00am December 06, 2023 11:18am DO NOT RECONCILE UNTIL DOS:10/23/2023 MED TO BED cephalexin 500 mg oral capsule (12 sources) Cephalosporin Antibacterial Start: 01-30-2024 End: 09-14-2024 take 1 capsule by mouth twice daily Cephalexin 500 mg capsule Discontinued 500 MG PO Twice daily 6 January 30, 2024 12:00am September 14, 2024 10:59am docusate sodium 50 mg / sennosides, chcf 8.6 mg oral tablet (20 sources) Start: 10-13-2023 End: 11-08-2023 take 2 tablets by mouth once daily Sennosides-Docusate Sodium (Senokot-S) 8.6-50 mg tablet Discontinued 2 TAB PO daily 60 October 13, 2023 12:00am November 08, 2023 8:48am DO NOT RECONCILE UNTIL DOS:10/23/2023 MED TO BED ergocalciferol 1.25 mg oral capsule (20 sources) Provitamin D2 Compound Start: 09-28-2023 End: 01-12-2024 take 1 capsule by mouth every week Ergocalciferol (Vitamin D2) 1,250 mcg (50,000 unit) capsule Discontinued 1250 MCG PO Q7D 8 60 September 28, 2023 1:00am January 12, 2024 12:44pm hydrOXYzine hydrochloride 25 mg oral tablet (20 sources) Antihistamine Start: 09-14-2024 End: 10-24-2024 Hydroxyzine Hcl 25 mg tablet Discontinued MG PO September 14, 2024 1:00am October 24, 2024 8:40am Start: 08-29-2024 End: 12-03-2024 Hydroxyzine Hcl 25 mg tablet Discontinued MG PO September 14, 2024 1:00am October 24, 2024 8:40am ondansetron 4 mg oral tablet (20 sources) Serotonin-3 Receptor Antagonist Start: 10-13-2023 End: 11-08-2023 take 1 tablet by mouth every eight hours as needed for nausea Ondansetron Hcl 4 mg tablet Discontinued 4 MG PO Q8H as needed for Nausea October 13, 2023 12:00am November 08, 2023 8:48am DO NOT RECONCILE UNTIL DOS:10/23/2023 MED TO BED oseltamivir 75 mg oral capsule (11 sources) Neuraminidase Inhibitor Start: 09-14-2024 End: 10-01-2024 take 1 capsule by mouth twice daily Oseltamivir (Tamiflu) 75 mg capsule Discontinued 75 MG PO Twice daily 10 5 September 14, 2024 1:00am October 01, 2024 11:42am oxyCODONE hydrochloride 5 mg oral tablet (20 sources) Opioid Agonist Start: 10-13-2023 End: 11-08-2023 take 1 tablet by mouth every four hours as needed for pain Oxycodone 5 mg tablet Discontinued 5 MG PO Q4H as needed for Pain 42 7 October 13, 2023 November 08, 2023 8:48am DO NOT RECONCILE UNTIL DOS:10/23/2023 MED TO BED polyethylene glycol 3350 14316 mg powder for oral solution (20 sources) Osmotic Laxative Start: 10-13-2023 End: 11-08-2023 Polyethylene Glycol 3350 (Miralax) 17 gram/dose powder Discontinued 17 GM PO daily 7 October 13, 2023 12:00am November 08, 2023 8:48am 1 packed mixed with 8 ounces of fluid. DO NOT RECONCILE UNTIL DOS:10/23/2023 MED TO BED predniSONE 20 mg oral tablet (11 sources) Start: 09-14-2024 End: 10-01-2024 take 1 tablet by mouth twice daily Prednisone 20 mg tablet Discontinued 20 MG PO Twice daily 10 September 14, 2024 1:00am October 01, 2024 11:42am Sod Picosulf-Mag Ox-Citric Ac (14 sources) Start: 12-18-2023 End: 10-01-2024 take 1 [...] suspension (4 sources) Corticosteroid Start: 07-13-2023 Kenalog-40 14 Jun, 2023 40 mg Start: 07-13-2023 Kenalog-40 Jun, 120 mg Problems Active Problems Problem Classification Problem Date Documented Date Episodic/Chronic Acute and chronic tonsillitis (2 sources) Tonsillar tag; Translations: [Other chronic diseases of tonsils and adenoids] 09-06-2024 Chronic Adjustment disorders (18 sources) Stress and adjustment reaction; Translations: [Adjustment disorder with other symptoms] Onset: 12-27-2023 Chronic Anxiety disorders (2 sources) Anxiety; Translations: [Anxiety disorder, unspecified] 08-29-2024 Chronic Chronic obstructive pulmonary disease and bronchiectasis (20 sources) Centriacinar emphysema; Translations: [Centrilobular emphysema] Onset: 4 10-03-2023 Chronic Coronary atherosclerosis and other heart disease (2 sources) Calcification of coronary artery; Translations: [Atherosclerotic heart disease of [place] coronary artery without angina pectoris] 09-05-2024 Chronic Disorders of lipid metabolism (20 sources) Hyperlipidemia, unspecified; Translations: [Hyperlipidemia] Onset: 3 Chronic Influenza (8 sources) Influenza due to other identified influenza virus with other respiratory manifestations; Translations: [Influenza with other respiratory manifestations] 09-14-2024 Episodic Miscellaneous mental health disorders (18 sources) Psychophysiologic insomnia; Translations: [Psychophysiologic insomnia] Onset: 4 12-27-2023 Chronic Nonspecific chest pain (11 sources) Chest pain; Translations: [Chest pain, unspecified] Onset: 5 10-17-2024 Episodic Osteoarthritis (20 sources) Osteoarthritis of left hip joint; Translations: [Unilateral primary osteoarthritis, left hip] Onset: 4 Chronic Osteoporosis (2 sources) Age-related osteoporosis without current pathological fracture; Translations: [Age-related osteoporosis without current pathological fracture] Chronic Other aftercare (16 sources) Patient encounter status; Translations: [Aftercare following joint replacement surgery] 11-08-2023 Chronic Other aftercare (15 sources) Aftercare following joint replacement surgery; Translations: [Aftercare following joint replacement] 11-08-2023 Chronic Other aftercare (1 source) 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 Episodic Other aftercare (1 source) Surgical follow-up; Translations: [Encounter for removal of sutures] 11-22-2024 Episodic Other aftercare (1 source) Encounter for removal of sutures; Translations: [Encounter for removal of sutures] 11-22-2024 Episodic Other aftercare (2 sources) Removal of sutures done; Translations: [Encounter for removal of sutures] 11-22-2024 Episodic Other circulatory disease (3 sources) Elevated blood-pressure reading without diagnosis of hypertension; Translations: [Elevated blood-pressure reading, without diagnosis of hypertension] Onset: 5 08-26-2024 Episodic Other circulatory disease (1 source) Elevated blood-pressure reading, without diagnosis of hypertension; Translations: [Elevated blood-pressure reading, without diagnosis of hypertension] Onset: 5 Episodic Other circulatory disease (2 sources) Spider nevus; Translations: [Nevus, non-neoplastic] 12-03-2024 Episodic Other connective tissue disease (16 sources) Hip joint prosthesis present; Translations: [Presence of left artificial hip joint] 11-08-2023 Chronic Other connective tissue disease (16 sources) Presence of left artificial hip joint; Translations: [Hip joint replacement] Onset: 5 11-08-2023 Chronic Other connective tissue disease (18 sources) History of repair of hip joint; Translations: [Presence of left artificial hip joint] Onset: 4 12-27-2023 Chronic Other connective tissue disease (2 sources) Impingement syndrome of left shoulder Episodic Other hereditary and degenerative nervous system conditions (7 sources) Restless legs; Translations: [Restless legs syndrome] Onset: 4 08-08-2023 Chronic Other nervous system disorders (11 sources) Carpal tunnel syndrome of right wrist; Translations: [Carpal tunnel syndrome, right upper limb] 10-01-2024 Chronic Other nervous system disorders (18 sources) Carpal tunnel syndrome, right upper limb; Translations: [Carpal tunnel syndrome] Onset: 5 10-01-2024 Chronic Other non-traumatic joint disorders (1 source) Pain in left hip Episodic Other non-traumatic joint disorders (10 sources) Pain in wrist; Translations: [Pain in right wrist] 09-30-2024 Episodic Other nutritional; endocrine; and metabolic disorders (2 sources) Morbid (severe) obesity due to excess calories; Translations: [Obesity, morbid, BMI 50 or higher] Chronic Other screening for suspected conditions (not mental disorders or infectious disease) (20 sources) Encounter for screening mammogram for malignant neoplasm of breast; Translations: [Encounter for screening for malignant neoplasm of respiratory organs] Onset: 2 Resolved: 5 Episodic Other skin disorders (2 sources) Seborrheic keratosis; Translations: [Other seborrheic keratosis] 12-03-2024 Episodic Other skin disorders (2 sources) Inflamed seborrheic keratosis; Translations: [Inflamed seborrheic keratosis] 12-03-2024 Episodic Other skin disorders (2 sources) Actinic keratosis; Translations: [Actinic keratosis] 12-03-2024 Episodic Other skin disorders (2 sources) Lentigo simplex; Translations: [Other melanin hyperpigmentation] 12-03-2024 Episodic Residual codes; unclassified (2 sources) Family history of congestive heart failure; Translations: [Family history of ischemic heart disease and other diseases of the circulatory system] 06-18-2024 Episodic Residual codes; unclassified (2 sources) Family history of aneurysm of abdominal aorta; Translations: [Family history of ischemic heart disease and other diseases of the circulatory system] 06-18-2024 Episodic Residual codes; unclassified (3 sources) FH: Cardiovascular disease; Translations: [Family history of ischemic heart disease and other diseases of the circulatory system] Onset: 5 08-26-2024 Episodic Residual codes; unclassified (1 source) Family history of ischemic heart disease and other diseases of the circulatory system; Translations: [Family history of ischemic heart disease and other diseases of the circulatory system] Onset: 5 Episodic Residual codes; unclassified (5 sources) Postprocedural state finding; Translations: [Other specified postprocedural states] 11-05-2024 Episodic Residual codes; unclassified (2 sources) Body mass index 20-24 - normal; Translations: [Body mass index (BMI) 24.0-24.9, adult] Onset: 5 12-10-2024 Episodic Residual codes; unclassified (1 source) Other specified postprocedural states; Translations: [Other postprocedural status] 11-22-2024 Episodic Residual codes; unclassified (2 sources) Body mass index (BMI) 24.0-24.9, adult; Translations: [Body mass index (BMI) 24.0-24.9, adult] Onset: 5 Episodic Screening and history of mental health and substance abuse codes (8 sources) Personal history of nicotine dependence; Translations: [Ex-smoker] Onset: 2 01-03-2025 Episodic Unclassified (1 source) New Patient Onset: 5 Past or Other Problems Problem Classification Problem Date Documented Da te Episodic/Chronic Neoplasms of unspecified nature or uncertain behavior (17 sources) 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; Translations: [Neoplasm of uncertain behavior of other specified sites of the oral cavity] Onset: 08-29-2024 Resolved: 01-03-2025 08-29-2024 Episodic Other non-traumatic joint disorders (1 source) Pain in right wrist; Translations: [Pain in right wrist] Onset: 10-01-2024 Episodic Other non-traumatic joint disorders (1 source) Pain in left wrist; Translations: [Pain in left wrist] Onset: 10-01-2024 Episodic Other skin disorders (18 sources) Loss of hair; Translations: [Nonscarring hair loss, unspecified] Onset: 12-27-2023 12-27-2023 Episodic Other upper respiratory infections (7 sources) Acute upper respiratory infection; Translations: [Acute upper respiratory infection, unspecified] Onset: 10-12-2023 10-12-2023 Episodic Regional enteritis and ulcerative colitis (18 sources) Colitis; Translations: [Left sided colitis with rectal bleeding] Onset: 09-21-2023 Resolved: 01-03-2025 09-21-2023 Chronic Residual codes; unclassified (19 sources) Family history of cardiac disorder; Translations: [Family history of ischemic heart disease and other diseases of the circulatory system] Onset: 06-18-2024 06-18-2024 Episodic Unclassified (1 source) Onset: 12-10-2024 12-10-2024 Results Test Name Value Interpretation Reference Range Facility CT LUNG SCREENING LOW DOSEon 01-24-2025 [place] [address] CT Scan Report Signed Patient: NADYA RODRIGUEZ MR#: [id number] : 1955 Acct:[id number] Age/Sex: 69 / F ADM Date: 01/24/25 Loc: CT Attending Dr: Rogelio Coleman M.D. Ordering Physician: Rogelio Coleman M.D. Date of Service: 01/24/25 Procedure(s): CT lung screening low-dose Accession Number(s): [id number] cc: Rogelio Coleman M.D. [place] [id number] Patient Name: NADYA RODRIGUEZ MRN: [facility]:[id number] date: 1955 Sex: F Assigned Patient Location: CT Current Patient Location: CT Accession/Order Number: [id number] Exam Date: 01/24/2025 10:09 Report Date: 01/24/2025 [...] Melchor M.D. 01/24/2025 10:14 AM Dictation Location: [place] [address] Electronically authenticated by: [id number] Y Date: 01/24/2025 10:14 Dictated By: Mariel Melchor M.D. Signed By: 01/24/25 1017 DD/ 1014 TD/TT: Launchman: [facility] Radiology Radiologarturo awan MD - 01/24/2025 [place] [address] CT Scan Report Signed Patient: NADYA RODRIGUEZ MR#: [id number] : 1955 Acct:[id number] Age/Sex: 69 / F ADM Date: 01/24/25 Loc: CT Attending Dr: Rogelio Coleman M.D. Ordering Physician: Rogelio Coleman M.D. Date of Service: 01/24/25 Procedure(s): CT lung screening low-dose Accession Number(s): [id number] cc: Rogelio Coleman M.D. [place] [address] Patient Name: NADYA RODRIGUEZ MRN: [facility]:[id number] date: 1955 Sex: F Assigned Patient Location: CT Current Patient Location: CT Accession/Order Number: [id number] Exam Date: 01/24/2025 10:09 Report Date: 01/24/2025 [...] Melchor M.D. 01/24/2025 10:14 AM Dictation Location: [place] [address] Electronically authenticated by: [id number] Y Date: 01/24/2025 10:14 Dictated By: Mariel Melchor M.D. Signed By: 01/24/25 1017 DD/ 1014 TD/TT: Launchman: [facility] Radiology Study observation (narrative) [facility] CT LUNG SCREENING LOW DOSEOr dered By: Radiologist Radiology on 01-24-2025 [facility] Work Phone: Basophils [#/volume] in Bloo d by Automated countOrdered By: Remy Olivarez on 12-12-2024 Basophils (Bld) [#/Vol] 0.0 10*3/uL Normal 0.0-0.2 [facility] Comment on above: Result Comment: PERF ORMED BY: [place] [address] PATHOLOGIST FORESTRY TREE PRUNER NANCY ARIZMENDI M.D. Performed By: #### L YTES, PP, LIPID, CREAT, BUN, CBC #### [facility] [address] [place] [address] [place] Basophils/100 leukocytes in Blood by Automated countOrdered By: Remy Olivarez on 12-12-2024 Basophils/100 WBC (Bld) 0.8 % Normal . [facility] Comment on above: Performed By: #### L YTES, PP, LIPID, CREAT, BUN, CBC #### [facility] [address] [place] [address] Carbon dioxide, total [Moles /volume] in Serum or PlasmaOrdered By: Reym Olivarez on 12-12-2024 CO2 [Moles/Vol] 26.1 mmol/L Normal 21.0-31.0 [facility] Comment on above: Performed By: #### L YTES, PP, LIPID, CREAT, BUN, CBC #### [facility] [address] [place] [address] [place] Chloride [Moles/volume] in S leann or PlasmaOrdered By: Remy Olivarez on 12-12-2024 Chloride [Moles/Vol] 109 mmol/L High 98-107 [facility] Comment on above: Performed By: #### L YTES, PP, LIPID, CREAT, BUN, CBC #### [facility] [address] [place] [address] [place] Cholesterol [Mass/volume] in Serum or PlasmaOrdered By: Remy Olivarez on 12-12-2024 Cholesterol [Mass/Vol] 175 mg/dL Normal 140-200 [facility] Comment on above: Chol less than 200 m g/dl low riskChol 201-239 mg/dl borderline riskChol 240 mg/dl and greater high risk Result Comment: Chol less than 200 mg/dl low risk Chol 201-239 mg/dl borderline risk Chol 240 mg/dl and greater high risk Performed By: #### L YTES, PP, LIPID, CREAT, BUN, CBC #### [facility] [address] [place] [address] [place] Cholesterol in HDL [Mass/vol ume] in Serum or PlasmaOrdered By: Remy Olivarez on 12-12-2024 Cholesterol in HDL [Mass/Vol] 58 mg/dL Normal 23-92 [facility] Comment on above: HDL CHOL ATP-III CLA SSIFICATION Cardiovascular RiskHDL > or equal to 60 mg/dL LOWHDL < 40 mg/dL HIGH Result Comment: HDL CHOL ATP-III CLASSIFICATION Cardiovascular Risk HDL > or equal to 60 mg/dL LOW HDL < 40 mg/dL HIGH Performed By: #### L YTES, PP, LIPID, CREAT, BUN, CBC #### [facility] [address] [place] [address] [place] Cholesterol in LDL Calc [Mas s/Vol]Ordered By: Remy Olivarez on 12-12-2024 Cholesterol in LDL [Mass/Vol] 94 mg/dL 0-100 [facility] Comment on above: LDL ATP III CLASSIFI CATIONLDL less than 100 mg/dL OptimalLDL 100-129 mg/dL Near or above optimalLDL 130-159 mg/dL Borderline highLDL 160-189 mg/dL HighLDL greater than 189 mg/dL Very high Cholesterol in VLDL Calc [Ma ss/Vol]Ordered By: Remy Olivarez on 12-12-2024 Cholesterol in VLDL [Mass/Vol] 22 mg/dL [facility] Coagulation Profileon 2024 aPTT Coag (Bld) [Time] 27.9 s Normal 25.1-36.5 [facility] Comment on above: Result Comment: A he matocrit value greater than 55% may lead to inaccurate results in coagulation testing. Patients having hematocrit values >55% require a special collection tube for coagulation studies. Please contact the laboratory at [phone] for redraw instructions. PERFORMED BY: [place] [address] PATHOLOGIST [employer] T[employer]ER NANCY ARIZMENDI M.D. Performed By: #### L YTES, PP, LIPID, CREAT, BUN, CBC #### [address] Complete Blood Count Auto Di ffon 12-12-2024 Mean Corpuscular HGB Conc 33.7 g/dL Normal 32.0-35.0 [facility] Comment on above: Performed By: #### L YTES, PP, LIPID, CREAT, BUN, CBC #### [address] NRBC% 0.1 /100{WBC} Normal 0-0.5 [facility] Comment on above: Performed By: #### L YTES, PP, LIPID, CREAT, BUN, CBC #### [address] Creatinineon 12-12-2024 GFR/1.73 sq M.predicted MDRD (S/P/Bld) [Vol rate/Area] mL/min/{1.73_m2} Normal [facility] Comment on above: Performed By: #### L YTES, PP, LIPID, CREAT, BUN, CBC #### [address] Creatinine [Mass/volume] in Serum or PlasmaOrdered By: Remy Olivarez on 12-12-2024 Creatinine [Mass/Vol] 0.73 mg/dL Normal 0.60-1.20 [facility] Comment on above: Performed By: #### L YTES, PP, LIPID, CREAT, BUN, CBC #### [address] Eosinophils [#/volume] in Bl ood by Automated countOrdered By: Remy Olivarez on 12-12-2024 Eosinophils (Bld) [#/Vol] 0.1 10*3/uL Normal 0.0-0.45 [facility] Comment on above: Performed By: #### L YTES, PP, LIPID, CREAT, BUN, CBC #### [address] Eosinophils/100 leukocytes i n Blood by Automated countOrdered By: Remy Olivarez on 12-12-2024 Eosinophils/100 WBC (Bld) 2.6 % Normal . [facility] Comment on above: Performed By: #### L YTES, PP, LIPID, CREAT, BUN, CBC #### [address] Erythrocyte distribution wid th [Ratio] by Automated countOrdered By: Remy Olivarez on 12-12-2024 Erythrocyte distribution width (RBC) [Ratio] 15.5 % High 11.9-15.3 [facility] Comment on above: Performed By: #### L YTES, PP, LIPID, CREAT, BUN, CBC #### [address] Erythrocytes [#/volume] in B lood by Automated countOrdered By: Remy Olivarez on 12-12-2024 RBC (Bld) [#/Vol] 4.48 10*6/uL Normal 3.60-5.00 [facility] Comment on above: Performed By: #### L YTES, PP, LIPID, CREAT, BUN, CBC #### [address] Hematocrit [Volume Fraction] of Blood by Automated countOrdered By: Remy Olivarez on 12-12-2024 Hematocrit (Bld) [Volume fraction] 40.7 % Normal 34.0-46.4 [facility] Comment on above: Performed By: #### L YTES, PP, LIPID, CREAT, BUN, CBC #### [address] Hemoglobin [Mass/volume] in BloodOrdered By: Remy Olivarez on 12-12-2024 Hemoglobin (Bld) [Mass/Vol] 13.7 g/dL Normal 11.8-15.4 [facility] Comment on above: Performed By: #### L YTES, PP, LIPID, CREAT, BUN, CBC #### [address] INR in Platelet poor plasma by Coagulation assayOrdered By: Remy Olivarez on 12-12-2024 INR Coag (PPP) [Relative time] 0.9 {INR} Normal [facility] Comment on above: INR Therapeutic Rang e A) Pre- and Peroperative OAT started two weeks before surgery. NOT HIP SURGERY: 1.5 - 2.5 HIP SURGERY: 2 - 3B) Primary and secondary prevention of venous THROMBOSIS: 2 - 3C) Active venous thrombosis, pulmonary embolismand prevention of recurrent venous thrombosis: 2 - 3D) Prevention of arterial thromboembolismincluding patients with mechanical heart valves: 3 - 4.5 Result Comment: INR Therapeutic Range A) Pre- and Peroperative OAT started two weeks before surgery. NOT HIP SURGERY: 1.5 - 2.5 HIP SURGERY: 2 - 3 B) Primary and secondary prevention of venous THROMBOSIS: 2 - 3 C) Active venous thrombosis, pulmonary embolism and prevention of recurrent venous thrombosis: 2 - 3 D) Prevention of arterial thromboembolism including patients with mechanical heart valves: 3 - 4.5 Performed By: #### L YTES, PP, LIPID, CREAT, BUN, CBC #### [address] Leukocytes [#/volume] correc loraine for nucleated erythrocytes in Blood by Automated counOrdered By: Remy Olivarez on 12-12-2024 WBC corrected for nucl RBC Auto (Bld) [#/Vol] 4.5 10*3/uL 3.8-11.6 [facility] Leukocytes [#/volume] in Blo od by Automated countOrdered By: Remy Olivarez on 12-12-2024 WBC (Bld) [#/Vol] 4.5 10*3/uL Normal 3.8-11.6 [facility] Comment on above: Performed By: #### L YTES, PP, LIPID, CREAT, BUN, CBC #### [place] [address] Lipid Panelon 12-12-2024 LDL Cholesterol,Calculate d 94 mg/dL Normal 0-100 [facility] Comment on above: Result Comment: LDL ATP III CLASSIFICATION LDL less than 100 mg/dL Optimal LDL 100-129 mg/dL Near or above optimal LDL 130-159 mg/dL Borderline high LDL 160-189 mg/dL High LDL greater than 189 mg/dL Very high Performed By: #### L YTES, PP, LIPID, CREAT, BUN, CBC #### [address] Triglyceride w/Reflex 114 mg/dL Normal 0-149 [facility] Comment on above: Result Comment: TRIG ATP III CLASSIFICATION TRIG less than 150 mg/dL Normal TRIG 150-199 mg/dL Borderline high TRIG 200-500 mg/dL High TRIG greater than 500 mg/dL Very high Standard traceable to the Center for Disease Conrtrol and Prevention (CDC) test method. Performed By: #### L YTES, PP, LIPID, CREAT, BUN, CBC #### [address] VLDL CHOLESTEROL 22 mg/dL Normal [facility] Comment on above: Performed By: #### L YTES, PP, LIPID, CREAT, BUN, CBC #### [place] [address] [place] Lymphocytes [#/volume] in Bl ood by Automated countOrdered By: Remy Olivarez on 12-12-2024 Lymphocytes (Bld) [#/Vol] 1.7 10*3/uL Normal 1.00-4.8 [facility] Comment on above: Performed By: #### L YTES, PP, LIPID, CREAT, BUN, CBC #### [place] [address] [place] Lymphocytes/100 leukocytes i n Blood by Automated countOrdered By: Remy Olivarez on 12-12-2024 Lymphocytes/100 WBC (Bld) 38.5 % Normal . [facility] Comment on above: Performed By: #### L YTES, PP, LIPID, CREAT, BUN, CBC #### [address] [place] [address] [place] MCH [Entitic mass] by Automa loraine countOrdered By: Remy Olivarez on 12-12-2024 MCH (RBC) [Entitic mass] 30.6 pg Normal 24.7-34.3 [facility] Comment on above: Performed By: #### L YTES, PP, LIPID, CREAT, BUN, CBC #### [address] MCHC Auto (RBC) [Mass/Vol]Or dered By: Remy Olivarez on 12-12-2024 MCHC (RBC) [Mass/Vol] 33.7 g/dL 32.0-35.0 [facility] MCV [Entitic volume] by Auto mated countOrdered By: Remy Olivarez on 12-12-2024 MCV (RBC) [Entitic vol] 90.8 fL Normal 80-100 [facility] Comment on above: Performed By: #### L YTES, PP, LIPID, CREAT, BUN, CBC #### [address] Monocytes [#/volume] in Bloo d by Automated countOrdered By: Remy Olivarez on 12-12-2024 Monocytes (Bld) [#/Vol] 0.3 10*3/uL Normal 0.0-0.8 [facility] Comment on above: Performed By: #### L YTES, PP, LIPID, CREAT, BUN, CBC #### [facility] [address] [place] [address] [place] Monocytes/100 leukocytes in Blood by Automated countOrdered By: Remy Olivarez on 12-12-2024 Monocytes/100 WBC (Bld) 7.1 % Normal . [facility] Comment on above: Performed By: #### L YTES, PP, LIPID, CREAT, BUN, CBC #### [place] [address] [place] Neutrophils [#/volume] in Bl ood by Automated countOrdered By: Remy Olivarez on 12-12-2024 Neutrophils (Bld) [#/Vol] 2.3 10*3/uL Normal 1.8-7.7 [facility] Comment on above: Performed By: #### L YTES, PP, LIPID, CREAT, BUN, CBC #### [facility] [address] [place] [address] Neutrophils/100 leukocytes i n Blood by Automated countOrdered By: Remy Olivarez on 12-12-2024 Neutrophils/100 WBC (Bld) 51.0 % Normal . [facility] Comment on above: Performed By: #### L YTES, PP, LIPID, CREAT, BUN, CBC #### [address] No Panel InformationOrdered By: Remy Olivarez on 12-12-2024 Estimated GFR (CKD-EPI) > 60.0 mL/Min [facility] Creatinine Clearance (Chem N/A [facility] Nucleated erythrocytes [Pres ence] in Blood by Automated countOrdered By: Remy Olivarez on 12-12-2024 Nucleated RBC Auto Ql (Bld) 0.1 /100{WBC} 0-0.5 [facility] Platelet mean volume [Entiti c volume] in Blood by Automated countOrdered By: Reym Olivarez on 12-12-2024 Platelet mean volume (Bld) [Entitic vol] 9.9 fL Normal 6.3-10.7 [facility] Comment on above: Performed By: #### L YTES, PP, LIPID, CREAT, BUN, CBC #### [facility] [address] [place] [address] Platelets [#/volume] in Bloo d by Automated countOrdered By: Remy Olivarez on 12-12-2024 Platelets (Bld) [#/Vol] 158 10*3/uL Normal 150-450 [facility] Comment on above: Performed By: #### L YTES, PP, LIPID, CREAT, BUN, CBC #### [facility] [address] [place] [address] Potassium [Moles/volume] in Serum or PlasmaOrdered By: Remy Olivarez on 12-12-2024 Potassium [Moles/Vol] 4.3 mmol/L Normal 3.5-5.1 [facility] Comment on above: Performed By: #### L YTES, PP, LIPID, CREAT, BUN, CBC #### [address] Prothrombin time (PT)Ordered By: Remy Olivarez on 12-12-2024 PT Coag (PPP) [Time] 10.8 s Normal 9.0-12.9 [facility] Comment on above: A hematocrit value g reater than 55% may lead to inaccurate results in coagulation testing. Patients having hematocrit values >55% require a special collection tube for coagulation studies. Please contact the laboratory at [phone] for redraw instructions. Result Comment: A he matocrit value greater than 55% may lead to inaccurate results in coagulation testing. Patients having hematocrit values >55% require a special collection tube for coagulation studies. Please contact the laboratory at [phone] for redraw instructions. Performed By: #### L YTES, PP, LIPID, CREAT, BUN, CBC #### [address] Serum or plasma anion gap de terminationOrdered By: Remy Olivarez on 12-12-2024 Anion gap [Moles/Vol] 10.2 mmol/L Normal 6.0-15.0 [facility] Comment on above: Performed By: #### L YTES, PP, LIPID, CREAT, BUN, CBC #### [address] Serum or plasma total choles terol/high density lipoprotein (HDL) cholesterol mass ratOrdered By: Remy Olivarez on 12-12-2024 Cholesterol.total/Cho lesterol in HDL [Mass ratio] 3.0 {ratio} Normal <5.0 [facility] Comment on above: Result Comment: PERF ORMED BY: [place] [address] PATHOLOGIST [employer]Y [employer]UNER NANCY ARIZMENDI M.D. Performed By: #### L YTES, PP, LIPID, CREAT, BUN, CBC #### [address] Sodium [Moles/volume] in Ser um or PlasmaOrdered By: Remy Olivarez on 12-12-2024 Sodium [Moles/Vol] 141 mmol/L Normal 136-145 [facility] Comment on above: Performed By: #### L YTES, PP, LIPID, CREAT, BUN, CBC #### [facility] [address] [place] [id number] [place] Triglyceride [Mass/volume] i n Serum or PlasmaOrdered By: Remy Olivarez on 12-12-2024 Triglyceride [Mass/Vol] 114 mg/dL 0-149 [facility] Comment on above: TRIG ATP III CLASSIF ICATIONTRIG less than 150 mg/dL NormalTRIG 150-199 mg/dL Borderline highTRIG 200-500 mg/dL High TRIG greater than 500 mg/dL Very highStandard traceable to the Center for Disease Conrtrol and Prevention (CDC) test method. Urea nitrogen [Mass/volume] in Serum or PlasmaOrdered By: Remy Olivarez on 12-12-2024 Urea nitrogen [Mass/Vol] 18 mg/dL Normal 7-25 [facility] Comment on above: Performed By: #### L YTES, PP, LIPID, CREAT, BUN, CBC #### [facility] [address] [place] [id number] [place] aPTT in Platelet poor plasma by Coagulation assayOrdered By: Remy Olivarez on 12-12-2024 aPTT Coag (PPP) [Time] 27.9 s 25.1-36.5 [facility] Comment on above: A hematocrit value g reater than 55% may lead to inaccurate results in coagulation testing. Patients having hematocrit values >55% require a special collection tube for coagulation studies. Please contact the laboratory at [phone] heart angio w/scoreon CT heart angio w/score [facility] [place] [address] [place] [address] CT Scan Report Signed with Koby Patient: Nadya Rodriguez MR#: [id number] : 1955 Acct:[id number] Age/Sex: 69 / F ADM Date: 12/06/24 Loc: CT Room: Type: [facility] Attending Dr: Marii Hurst MD Copies to: Marii Hurst MD Ordering Provider: Marii Hurst MD Date of Service: 12/06/24 CT/CT heart angio w/score: R07.9 ADDENDUM 1 EXTRACARDIAC STRUCTURES: No evidence of mediastinal or hilar lymphadenopathy. No pericardial effusion. Visualized lungs demonstrate no acute process. No lung nodule is seen. Limited images of the upper abdomen demonstrate no acute findings. Addendum Dictated By: Aidan Mckenna II, MD Addendum Signed By: 12/08/241209 Addendum Cosigned By: DD/ /24/1210 TD/TT: 12/08/2406/24/[address]/CT heart angio w/score IMPRESSION: No significant extracardiac CT findings. Impression dictated by: Aidan Mckenna M.D. 12/08/2024 12:10 PM Dictation Location: [place] [address] Addendum Dictated By: Aidan Mckenna II, MD Addendum Signed By: 12/08/241209 Addendum Cosigned By: DD/ /24/1210 TD/TT: 12/08/2406/24/1210 CLINICAL INDICATION: Patient Age: 69 years Patient Gender: Female Indication: Evaluation of coronary arteries for atherosclerosis or coronary anomalies TECHNIQUE: Image Acquisition: A 9SLIDESa View 128 was used for data acquisition. Bolus tracking in the descending aorta with a threshold of 150 HU media was performed. Immediately afterwards, ECG synchronized Cardiac CT was then performed from cardiac base to apex using Trigger Method: retrospective gating with ECG tube current modulation. A total of 80 mL of Omnipaque 350 mgl/mL contrast media was administered at 5 mL/sec followed by a saline flush using a biphasic injection protocol. Tube voltage 100 kVp. Heart rate was controlled with metoprolol, as needed. Coronary vasodilation was facilitated with sublingual nitroglycerin. The average heart rate at the time of acquisition was 76 bpm and mildly irregular due to PVC. Image Reconstruction: Transaxial images were reconstructed at 0.63 mm slice thickness. Data was reviewed interactively on an advanced workstation capable of 2 and 3 dimensional displays in all conventional reconstruction formats including multiplanar reformations, maximum intensity projections, curved multiplanar reformations, and volume rendered reconstructions. Selected routine images displaying relevant coronary anatomy and pathology were saved and sent to PACS. Complications: None Technical Quality: Overall image quality is Good. Coronary artery opacification is Excellent. Misregistration artifact in the inferior scan field due to PVC. Total DLP (Dose-Length Product): 1199 mGy.cm). (16.7 mSv). Please note: The reported value represents the total of one or more individual components during the CT acquisition on this date and at this time, and as such, the same value may appear in more than one CT report depending on the interpreting/reporting physicians. FINDINGS: -CT Coronary Calcium Scoring- LMA= 0 LAD= 471 LCX= 0 RCA= 277 Severe coronary calcification with a Coronary artery calcium (Agatston) score = 748 using the AJ-130 method. This score is in the 97th percentile rank for age and gender. Other Calcification: No other significant intracardiac calcification. -Coronary CT Angiography- Coronary Arteries: The coronaries have normal origin and proximal course. Note: Stenosis is reported as maximum percentage diameter stenosis. Stenosis grading is reported using the following scheme. Quantitative Stenosis Grading: CAD-RADS 0: 0% - No visible stenosis CAD-RADS 1: 1-24% - Minimal stenosis CAD-RADS 2: 25-49% - Mild stenosis CAD-RADS 3: 50-69% - Moderate stenosis CAD-RADS 4A: 70-99% - Severe stenosis in 1-2 vessels CAD-RADS 4B: Left main >50%, or 3 vessel >70% CAD-RADS 5: 100% - Occluded Left Main: CAD-RADS 0: The left main bifurcates into the left anterior descending artery and left circumflex artery. The left main has no visible stenosis. LAD: CAD-RADS 3. The LAD courses along the anterior interventricular grove as it gives off diagonal arteries. Moderate-severe stenosis of the proximal to mid LAD due to calcified plaque. Stenosis may be overestimated due to blooming artifact from heavy calcification. LCx and Obtuse Marginals: CAD-RADS 1. The left circumflex courses along the left AV groove as it gives off obtuse marginal arteries. No significant stenosis of the left circumflex artery with noncalcified luminal irregularities. RCA: CAD-RADS 2. The right coronary artery originates from the right cusp and courses along the right AV groove as it gives off acute marginal arteries. Distally p (more content not included)... Normal [facility] Creatinine (Bld) [Mass/Vol]O rdered By: Marii Hurst on 12-06-2024 Creatinine [Mass/Vol] Whole blood creati nine measurement 0.6-1.3 [facility] Comment on above: ER/ESD physician is notified/shown all ISTAT results.Critical values may be confirmed by laboratory testing ifdeemed necessary by ER attending doctor. ISTAT XRay CREon 12-06-2024 ISTAT GFR >60.0 Normal [facility] Comment on above: Result Comment: PERF ORMED BY: [place] [address] PATHOLOGIST [employer]UN[employer] NANCY ARIZMENDI M.D. Performed By: #### I SCRE #### [facility] [address] [place] [address] No Panel InformationOrdered By: Marii Hurst on 12-06-2024 Bedside Estimated GFR (eGFR) > 60.0 [facility] Whole blood creatinine measu rementOrdered By: Marii Hurst on 12-06-2024 Creatinine [Mass/Vol] 0.7 mg/dL Normal 0.6-1.3 [facility] Comment on above: ER/ESD physician is notified/shown all ISTAT results.Critical values may be confirmed by laboratory testing ifdeemed necessary by ER attending doctor. Result Comment: ER/E SD physician is notified/shown all ISTAT results. Critical values may be confirmed by laboratory testing if deemed necessary by ER attending doctor. Performed By: #### I SCRE #### [facility] [address] [place] [address] [place] No Panel Informationon 12-03 [facility] [employer] No Panel InformationOrdered By: Kerry Almanza on 12-03-2024 [facility] [employer] X-ray reportOrdered By: Mathew Hightower on 10-30-2024 Study report [facility] [address] [place] [address] XRay Report Signed Patient: Nadya Rodriguez MR#: [id number] : 1955 Acct:[id number] Age/Sex: 69 / F ADM Date: 5 Loc: [facility] Room: Type: [facility] Attending Dr: Luis Carlton II, MD Copies to: Luis Carlton MD~ Ordering Provider: Luis Carlton MD Date of Service: 10/30/24 XR/XR hip LT min 2V(w/wo pelvis)*: Z96.642 - Presenceof left artificial hip joint LEFT HIP - 2 views: CLINICAL HISTORY: Follow-up left COLTEN COMPARISON: Hip series 5A 24 FINDINGS: Bilateral THAs without radiographic complication. No acute bony process. XR/XR hip LT min 2V(w/wo pelvis)* IMPRESSION: NO HARDWARE COMPLICATION.. Impression dictated by: Nilo Hightower Jr., D.O.10/30/2024 10:47 AM Dictation Location: [place] [address] Transcribed By: [facility] 10/30/24 1047 Dictated By: Nilo Hightower Jr, DO 10/30/24 1047 Signed By: 10/30/24 1047 [facility] XR hip LT min 2V(w/wo pelvis )*on 10-30-2024 XR hip LT min 2V(w/wo pelvis)* [facility] [address] [place] [address] XRay Report Signed Patient: Nadya Rodriguez MR#: [id number] : 1955 Acct:[id number] Age/Sex: 69 / F ADM Date: 10/30/24 Loc: [facility] Room: Type: [facility] Attending Dr: Luis Carlton II, MD Copies to: Luis Carlton MD Ordering Provider: Luis Carlton MD Date of Service: 10/30/24 XR/XR hip LT min 2V(w/wo pelvis)*: Z96.642 - Presence of left artificial hip joint LEFT HIP - 2 views: CLINICAL HISTORY: Follow-up left COLTEN COMPARISON: Hip series 5A 24 FINDINGS: Bilateral THAs without radiographic complication. No acute bony process. XR/XR hip LT min 2V(w/wo pelvis)* IMPRESSION: NO HARDWARE COMPLICATION.. Impression dictated by: Nilo Hightower Jr., D.OAnna Marie10/30/2024 10:47 AM Dictation Location: [place] [address] Transcribed By: [facility] 10/30/24 104 Dictated By: Nilo Hightower Jr, DO 10/30/241046 Signed By: 10/30/24 104 Normal [facility] Alanine aminotransferase [En zymatic activity/volume] in Serum or PlasmaOrdered By: Marii Rios on 10-24-2024 ALT [Catalytic activity/Vol] Alanine aminotransferase [Enzymatic activity/volume] in Serum or Plasma 7-52 [facility] Albumin [Mass/volume] in Ser um or Plasma by Bromocresol green (BCG) dye binding methoOrdered By: Marii Rios on 10-24-2024 Albumin BCG dye [Mass/Vol] Albumin [Mass/volume] in Serum or Plasma by Bromocresol green (BCG) dye binding metho 3.5-5.7 [facility] Alkaline phosphatase [Enzyma tic activity/volume] in Serum or PlasmaOrdered By: Marii Rios on 10-24-2024 ALP [Catalytic activity/Vol] Alkaline phosphatase [Enzymatic activity/volume] in Serum or Plasma 34-104 [facility] Aspartate aminotransferase [ Enzymatic activity/volume] in Serum or PlasmaOrdered By: Marii Rios on 10-24-2024 AST [Catalytic activity/Vol] Aspartate aminotransferase [Enzymatic activity/volume] in Serum or Plasma 13-39 [facility] Basophils Auto (Bld) [#/Vol] Ordered By: Marii Rios on 10-24-2024 Basophils (Bld) [#/Vol] Automated basophil count 0.0-0.2 [facility] Basophils/100 WBC Auto (Bld) Ordered By: Marii Rios on 10-24-2024 Basophils/100 WBC (Bld) Automated basophil % . [facility] Bilirubin.total [Mass/volume ] in Serum or PlasmaOrdered By: Marii Rios on 10-24-2024 Bilirubin [Mass/Vol] Bilirubin.total [Mass/volume] in Serum or Plasma 0.3-1.0 [facility] CMP with reflex to A1Con Albumin [Mass/Vol] 4.7 g/dL Normal 3.5-5.7 [facility] Comment on above: Performed By: #### C BC, CMP wRFX A1C ####[place] [id number] [place] [id number] [facility] Albumin/Globulin [Mass ratio] 2.2 {ratio} Normal [facility] [facility] Comment on above: Performed By: #### C BC, CMP wRFX A1C ####[place] [address] [place] [id number] [facility] ALP [Catalytic activity/Vol] 86 U/L Normal 34-104 [facility] Comment on above: Result Comment: PERF ORMED BY: [facility] [address] [facility] [address] PATHOLOGIST FORESTRY TREE PRUNER NANCY ARIZMENDI M.D. Performed By: #### C BC, CMP wRFX A1C ####[place] [id number] [facility] ALT [Catalytic activity/Vol] 16 U/L Normal 7-52 [facility] Comment on above: Performed By: #### C BC, CMP wRFX A1C ####[place] [id number] [facility] Anion gap [Moles/Vol] 10.9 mmol/L Normal 6.0-15.0 e [facility] Comment on above: Performed By: #### C BC, CMP wRFX A1C ####[place] [id number] [facility] AST [Catalytic activity/Vol] 16 U/L Normal 13-39 [facility] Comment on above: Performed By: #### C BC, CMP wRFX A1C ####[place] [id number] [facility] Bilirubin [Mass/Vol] 0.6 mg/dL Normal 0.3-1.0 [facility] Comment on above: Performed By: #### C BC, CMP wRFX A1C ####[address] [address] [facility] Calcium [Mass/Vol] 9.6 mg/dL Normal 8.6-10.3 The [facility] Comment on above: Performed By: #### C BC, CMP wRFX A1C ####[place] [address] [place] [id number] [facility] Chloride [Moles/Vol] 106 mmol/L Normal 98-107 [facility] Comment on above: Performed By: #### C BC, CMP wRFX A1C ####[place] [id number] [facility] CO2 [Moles/Vol] 26.4 mmol/L Normal 21.0-31.0 The [facility] Comment on above: Performed By: #### C BC, CMP wRFX A1C ####[address] Creatinine [Mass/Vol] 0.80 mg/dL Normal 0.60-1.20 [facility] Comment on above: Performed By: #### C BC, CMP wRFX A1C ####[place] [id number] [facility] GFR/1.73 sq M.predicted MDRD (S/P/Bld) [Vol rate/Area] mL/min/{1.73_m2} Normal [facility] Comment on above: Performed By: #### C BC, CMP wRFX A1C ####[address] Globulin (S) [Mass/Vol] 2.1 g/dL Normal [facility] Comment on above: Performed By: #### C BC, CMP wRFX A1C ####[place] [id number] [facility] Glucose [Mass/Vol] 88 mg/dL Normal 70-100 The [facility] Comment on above: Performed By: #### C BC, CMP wRFX A1C ####[place] [id number] [facility] Potassium [Moles/Vol] 4.3 mmol/L Normal 3.5-5.1 [facility] Comment on above: Performed By: #### C BC, CMP wRFX A1C ####[facility] [place] [address] [facility] Protein [Mass/Vol] 6.8 g/dL Normal 6.4-8.9 The [facility] Comment on above: Performed By: #### C BC, CMP wRFX A1C ####[place] [address] [place] [id number] [facility] Sodium [Moles/Vol] 139 mmol/L Normal 136-145 [facility] Comment on above: Performed By: #### C BC, CMP wRFX A1C ####[place] [address] [place] [id number] [facility] Urea nitrogen [Mass/Vol] 19 mg/dL Normal 7-25 [facility] Comment on above: Performed By: #### C BC, CMP wRFX A1C ####[place] [address] [place] [id number] [facility] Calcium [Mass/volume] in Ser um or PlasmaOrdered By: Marii Rios on 10-24-2024 Calcium [Mass/Vol] Calcium [Mass/volume ] in Serum or Plasma 8.6-10.3 [facility] Carbon dioxide, total [Moles /volume] in Serum or PlasmaOrdered By: Marii Rios on 10-24-2024 CO2 [Moles/Vol] Carbon dioxide, tota l [Moles/volume] in Serum or Plasma 21.0-31.0 [facility] Chloride [Moles/volume] in S leann or PlasmaOrdered By: Marii Rios on 10-24-2024 Chloride [Moles/Vol] Chloride [Moles/vol ume] in Serum or Plasma 98-107 [facility] Complete Blood Count Auto Di ffon 10-24-2024 Basophils (Bld) [#/Vol] 0.1 10*3/uL Normal 0.0-0.2 [facility] Comment on above: Result Comment: PERF ORMED BY: [facility] [address] [place] [id number] PATHOLOGIST FORESTRY TREE PRUNER NANCY ARIZMENDI M.D. Performed By: #### C BC, CMP wRFX A1C ####[address] Basophils/100 WBC (Bld) 0.9 % Normal . [facility] Comment on above: Performed By: #### C BC, CMP wRFX A1C ####[address] Eosinophils (Bld) [#/Vol] 0.1 10*3/uL Normal 0.0-0.45 [facility] Comment on above: Performed By: #### C BC, CMP wRFX A1C ####[address] Eosinophils/100 WBC (Bld) 2.0 % Normal . [facility] Comment on above: Performed By: #### C BC, CMP wRFX A1C ####[address] Erythrocyte distribution width (RBC) [Ratio] 15.8 % High 11.9-15.3 [facility] Comment on above: Performed By: #### C BC, CMP wRFX A1C ####[address] Hematocrit (Bld) [Volume fraction] 41.5 % Normal 34.0-46.4 [facility] Comment on above: Performed By: #### C BC, CMP wRFX A1C ####[address] Hemoglobin (Bld) [Mass/Vol] 14.1 g/dL Normal 11.8-15.4 [facility] Comment on above: Performed By: #### C BC, CMP wRFX A1C ####[address] Lymphocytes (Bld) [#/Vol] 2.4 10*3/uL Normal 1.00-4.8 [facility] Comment on above: Performed By: #### C BC, CMP wRFX A1C ####[address] [address] [place] Lymphocytes/100 WBC (Bld) 42.8 % Normal . [facility] Comment on above: Performed By: #### C BC, CMP wRFX A1C ####[address] MCH (RBC) [Entitic mass] 30.7 pg Normal 24.7-34.3 [facility] Comment on above: Performed By: #### C BC, CMP wRFX A1C ####[address] MCV (RBC) [Entitic vol] 90.0 fL Normal 80-100 [facility] Comment on above: Performed By: #### C BC, CMP wRFX A1C ####[address] Mean Corpuscular HGB Conc 34.1 g/dL Normal 32.0-35.0 [facility] Comment on above: Performed By: #### C BC, CMP wRFX A1C ####[address] Monocytes (Bld) [#/Vol] 0.4 10*3/uL Normal 0.0-0.8 [facility] Comment on above: Performed By: #### C BC, CMP wRFX A1C ####[address] Monocytes/100 WBC (Bld) 7.3 % Normal . [facility] Comment on above: Performed By: #### C BC, CMP wRFX A1C ####[address] Neutrophils (Bld) [#/Vol] 2.6 10*3/uL Normal 1.8-7.7 [facility] Comment on above: Performed By: #### C BC, CMP wRFX A1C ####[address] Neutrophils/100 WBC (Bld) 47.0 % Normal . [facility] Comment on above: Performed By: #### C BC, CMP wRFX A1C ####[facility] [place] [address] [facility] NRBC% 0.1 /100{WBC} Normal 0-0.5 The [facility] Comment on above: Performed By: #### C BC, CMP wRFX A1C ####[place] [address] [place] [address] [facility] Platelet mean volume (Bld) [Entitic vol] 9.8 fL Normal 6.3-10.7 The [facility] Comment on above: Performed By: #### C BC, CMP wRFX A1C ####[place] [address] [place] [address] [facility] Platelets (Bld) [#/Vol] 150 10*3/uL Normal 150-450 [facility] Comment on above: Performed By: #### C BC, CMP wRFX A1C ####[place] [phone] [facility] RBC (Bld) [#/Vol] 4.61 10*6/uL Normal 3.60-5.00 The [facility] Comment on above: Performed By: #### C BC, CMP wRFX A1C ####[place] [phone] [facility] WBC (Bld) [#/Vol] 5.6 10*3/uL Normal 3.8-11.6 [facility] Comment on above: Performed By: #### C BC, CMP wRFX A1C ####[place] [id number] [facility] Creatinine [Mass/volume] in Serum or PlasmaOrdered By: Marii Rios on 10-24-2024 Creatinine [Mass/Vol] Creatinine [Mass/v olume] in Serum or Plasma 0.60-1.20 [facility] Eosinophils Auto (Bld) [#/Vo l]Ordered By: Marii Rios on 10-24-2024 Eosinophils (Bld) [#/Vol] Automated eosinophil count 0.0-0.45 [facility] Eosinophils/100 WBC Auto (Bl d)Ordered By: Marii Rios on 10-24-2024 Eosinophils/100 WBC (Bld) Automated eosinophil % . [facility] Erythrocyte distribution wid th Auto (RBC) [Ratio]Ordered By: Marii Rios on 10-24-2024 Erythrocyte distribution width (RBC) [Ratio] Erythrocyte distribution width [Ratio] by Automated count High 11.9-15.3 [facility] Globulin Calc (S) [Mass/Vol] Ordered By: Marii Rios on 10-24-2024 Globulin (S) [Mass/Vol] Serum globulin measurement by calculation (mass/volume) [facility] Glucose [Mass/volume] in Ser um or PlasmaOrdered By: Marii Rios on 10-24-2024 Glucose [Mass/Vol] Glucose [Mass/volume ] in Serum or Plasma 70-100 [facility] Hematocrit Auto (Bld) [Volum e fraction]Ordered By: Marii Rios on 10-24-2024 Hematocrit (Bld) [Volume fraction] Hematocrit [Volume Fraction] of Blood by Automated count 34.0-46.4 [facility] Hemoglobin [Mass/volume] in BloodOrdered By: Marii Rios 10-24-2024 Hemoglobin (Bld) [Mass/Vol] Hemoglobin [Mass/volume] in Blood 11.8-15.4 [facility] Leukocytes [#/volume] correc loraine for nucleated erythrocytes in Blood by Automated counOrdered By: Marii Rios on 10-24-2024 WBC corrected for nucl RBC Auto (Bld) [#/Vol] Leukocytes [#/volume] corrected for nucleated erythrocytes in Blood by Automated coun 3.8-11.6 [facility] Lymphocytes Auto (Bld) [#/Vo l]Ordered By: Marii Rios on 10-24-2024 Lymphocytes (Bld) [#/Vol] Lymphocytes [#/volume] in Blood by Automated count 1.00-4.8 [facility] Lymphocytes/100 WBC Auto (Bl d)Ordered By: Marii Rios on 10-24-2024 Lymphocytes/100 WBC (Bld) Lymphocytes/100 leukocytes in Blood by Automated count . [facility] MCH Auto (RBC) [Entitic mass ]Ordered By: Marii Rios 10-24-2024 MCH (RBC) [Entitic mass] MCH [Entitic mass] by Automated count 24.7-34.3 [facility] MCHC Auto (RBC) [Mass/Vol]Or dered By: Marii Rios on 10-24-2024 MCHC (RBC) [Mass/Vol] MCHC [Mass/volume] by Automated count 32.0-35.0 [facility] MCV Auto (RBC) [Entitic vol] Ordered By: Marii Rios on 10-24-2024 MCV (RBC) [Entitic vol] MCV [Entitic volume] by Automated count 80-100 [facility] Monocytes Auto (Bld) [#/Vol] Ordered By: Marii Rios on 10-24-2024 Monocytes (Bld) [#/Vol] Automated blood monocyte count 0.0-0.8 [facility] Monocytes/100 WBC Auto (Bld) Ordered By: Marii Riso on 10-24-2024 Monocytes/100 WBC (Bld) Automated monocyte % . [facility] Neutrophils Auto (Bld) [#/Vo l]Ordered By: Marii Rios on 10-24-2024 Neutrophils (Bld) [#/Vol] Neutrophils [#/volume] in Blood by Automated count 1.8-7.7 [facility] Neutrophils/100 WBC Auto (Bl d)Ordered By: Marii Rios on 10-24-2024 Neutrophils/100 WBC (Bld) Automated neutrophil % . [facility] No Panel InformationOrdered By: Marii Rios on 10-24-2024 Estimated GFR (CKD-EPI) > 60.0 mL/Min [facility] Creatinine Clearance (Chem N/A [facility] Nucleated erythrocytes [Pres ence] in Blood by Automated countOrdered By: Marii Rios on 10-24-2024 Nucleated RBC Auto Ql (Bld) Nucleated erythrocytes [Presence] in Blood by Automated count 0-0.5 [facility] Platelet mean volume Auto (B ld) [Entitic vol]Ordered By: Marii Rios on 10-24-2024 Platelet mean volume (Bld) [Entitic vol] Platelet mean volume [Entitic volume] in Blood by Automated count 6.3-10.7 [facility] Platelets Auto (Bld) [#/Vol] Ordered By: Marii Rios on 10-24-2024 Platelets (Bld) [#/Vol] Platelets [#/volume] in Blood by Automated count 150-450 [facility] Potassium [Moles/volume] in Serum or PlasmaOrdered By: Marii Rios on 10-24-2024 Potassium [Moles/Vol] Potassium [Moles/v olume] in Serum or Plasma 3.5-5.1 [facility] Protein [Mass/volume] in Ser um or PlasmaOrdered By: Marii Rios on 10-24-2024 Protein [Mass/Vol] Protein [Mass/volume ] in Serum or Plasma 6.4-8.9 [facility] RBC Auto (Bld) [#/Vol]Ordere d By: Marii Rios on 10-24-2024 RBC (Bld) [#/Vol] Erythrocytes [#/volu me] in Blood by Automated count 3.60-5.00 [facility] Serum or plasma albumin/glob ulin mass ratioOrdered By: Marii Rios on 10-24-2024 Albumin/Globulin [Mass ratio] Serum or plasma albumin/globulin mass ratio [facility] Serum or plasma anion gap de terminationOrdered By: Marii Rios on 10-24-2024 Anion gap [Moles/Vol] Serum or plasma an ion gap determination 6.0-15.0 [facility] Sodium [Moles/volume] in Ser um or PlasmaOrdered By: Marii Rios on 10-24-2024 Sodium [Moles/Vol] Sodium [Moles/volume ] in Serum or Plasma 136-145 [facility] Urea nitrogen [Mass/volume] in Serum or PlasmaOrdered By: Marii Rios on 10-24-2024 Urea nitrogen [Mass/Vol] Urea nitrogen [Mass/volume] in Serum or Plasma 7-25 [facility] WBC Auto (Bld) [#/Vol]Ordere d By: Marii Rios on 10-24-2024 WBC (Bld) [#/Vol] Leukocytes [#/volume ] in Blood by Automated count 3.8-11.6 [facility] Coding Summaryon 10-22-2024 Coding Summary [facility] 64 LzrebflgOPv2dUc+PGhlYWQ+PE 4WHEVeE46nePGyaC6gO1TYYCcM XmhvIKTNWStZBvMnpvEnET1bzV NjZXJu IC8+UP3iBIDzNmfsqTLwl8S4gD G9D29jrt9hNNfsrDI4JVIoJyDj epagn5euqKs0TVjqPgcrCkJt RPHmqL42EQX6eF05Sb63bFEuqR Ntq0orpEl5KwLyYZXvJKX3iJrq TWpuq9MlOHPlT83vfKIxc0N0 GPQsxAlfcKMxEvEzpCX6hJ5xZP aloeeca9gruonwNmt1na16xDYk v8S2jRI1S1TengO7TGHeyLPr TumjvGRDeP4vqikfx4nbcwjbOi RyVAUoWGb0NLl5IKYojRhrTqMl FL01MTW6PNGqrdOjC5WqOZFd tXprIiS1o6Y4Ll6NL3TDLphgL6 VNTUFSWTwvdGQ+WE57hd29P5Tx GccuFqb5DDMhLFO3oFD2pS8f HVAcDWhsj9V4yXZ8C0MlidFbcp 8lw0keZNLjIUcdO82pjHDjl1D6 OBCzjTR9SYUieYyrPdCuiM82 Oyc+ZUMdaQdox0KwDjfxb3gkc1 yocGz3CpojLUJqldGywRbjTUE0 m1AwCy1eUJHynNO7eYN1lP3l GnWkPyQ8ECawV491CjDhjVYwLa zoC81bA4KbwHV+ZWWdFqv6ZSXy mNnyJD6wD4PyEXUjjkmsjJHc kLgwOB9gFKJcxfesKGVjcW3fHB GmQ0g8WcYuCrS2ALxyO3TuTZKw yzjsEq11fM6pGaZaTbR2GDep Q6BzbjL5HZKseHKoZHsdNRQ2O1 6ia1H8DUPgNVMoSNT6cIX8aO2h bGlnbjogbGVmdDsgdmVydGlj TKxcWWhfD993UITuaUafIgVqKV luZyBEYXRlOiAgMDMvMjUvMjAy NTwvdGQ+USNmIZV9lWeyWXYw bTQcWFyzZb2pjFkhoQgpAW8yOK DcpvrxUROfxF3nYTQlgMJoiNwp LP1jCANrpxbcl859VxJgEUN9 MMWiwFQpA8MjtR9gPkGeSMUtAN UjN4ZqcRMzCFzgC206JQxoQcI4 XLVstnPiX7AtPRCftMguUkW7 a1R1Bf4Lx0CdnfrbS6AdgWShXe JySwqkJHu3F3ZzYnoqpDW+PC90 FTYnXC41UKg8XGM4lUwaYIvx VMQhR7IkwZ8dSqIhYNBrZHWbYk c+PHRhYmxlIHdpZHRoPScxMDAl LhPdnOodBM0jIf2hABUxLDZd qGtssUEsAyGov1ahNTEaJCavZO 6upRfdK9RfpYY2FHUzt5i6Rs66 D30wP1AslBE+HDIrsBR3cHF3 sS8yCtFrYhD0XKlsH712XhQuuR RcVqeac6zcu8yogId6AxO1QQLg urXcuVndPEN1t5GiCe75A16v IHdpZHRoPSIxNSUiIHZhbGlnbj 7nmB3jVw3+MKPnsTD2lXU4nW3l BkCaLnQ0ZLceQ631AoSyvRKm Qeati1ipp1yqtOi3ToWyKFQtli EsgTxkHND6y8OeRb94T6ZntDne j2HnLhm2vn12fXXzd2Z9vTS9 U5UjVYEjoqjhxVBtyHxcTX5dRV IlvhilAHSdnR4zOCYwE7n5JsGk BiV6DQkcA1FwdqD4LWVrcXOt HUDyeVZXaH0brraat6yotcnsEx ItXQBsFKd1QVh7HRMyuBmcYuRv TZX1HdS3MYX2wWJnyK5hiZjt rjpavO2nMxh+BYA6lPQnkGYOKT 1lOjwvdGQ+HGOfJZX0cPdkYRlf LGMbnK9kXCRdD4d4ZoYdRyB2 OTjuR5MxjuN4YZObtFLpZAPwgE CWoD2mnhrux0oatdghIpKmBYLk ZXz2UBp7DUZgmGzlToQgNCL1 WvK8SVJ4tQLznL1iwJuhumxtfG 9wOyc+TvgqaQafECG9JKd1Q4Bc Kwg0IPZolTgtJW5akNScMCmv Lf3sjMvvmGitKM4hYEJvoraqk7 02EhEot2zzMHAgbYJcFJuwYZG4 O13bh6Q5POJyTUCtIUY7uPG2 yK5auRqimgigtNQqqUqenxSyvY imJFrqRAupR151AKYhvEqtEcVp OKa2I1GgYpa4RBIteBunKL3p tDEsZBkoTn3zgPofdCyhQF5vFW Kkcaqdg623QkAfl9twIIEjbLOx RSdbLFA4M09ou7R2FEAmOCJj PVQ2jSU3dX4pxRsovhdlsOOhpO geqnXwbDocSOrhBXjsQ588WJIm qFccOmBsbWc4I0MhQwj3IVPp tQzzOM8dzECyVZtxIm7nnJgmeF zzZM8xZCSprbvse314CmFnm0ia MHCrcOAvDShfTYM5M50ye1N8 EUSbKTIcIFJ6yUJ9kU4veYpqny ogbGVmdDsgdmVydGljYWwtYWxp M293OBFedApaXfAsoUaeodOm RPfyQZf1W8MjZpijhEY+PC90YW RcWH00wZHvuJLks2iwaDp9WcDj AJMrTVU0jWthURgyq5LvEKPw M64vnVAzl1J8ENNffDpiyTYdFu EajPA3eZ2eDHaofdvge3acjpdk Kkcbw5tcfq40lJ84U26fDYir IXOqJTIyYMUpQCZjfTpyzs9zkC 9wIi8+WBJnoTX2rUJ9pE2aVCFs WrP4QAzeG092ChRvfAYhCnmf u5amx3klkAs6DxL9THJqxnAboJ bbCZQ1m7HbLq51V97cPDosBORh RCLnEUXdURXmkAxryr7joN5x Ii8+ACUuoTH2eEN3qF2eIjFzQq S9WFltR394OhYdvMCfHpccJ51i G2BfyBD+MVJaDhx2SFJrzVqn HD0bxTJzBWlmCf0mALX7TlKpOp ZmSYxrL2VaNNBznzkyfltlfCN2 MWWoJKJtkC00Xw0soZqiHXKz cALNcI6dbghgg0jdsfjpWmCsYR XdPAy5XDl7LCKxlElxUmYrVFY3 XuZ5REW6rNCitI8avLlazgux yM3aY8FkSBGptuhyPh01mZ8oEv DnRiK5BOdjHwl+K92ML3rZZtvj S1eHYraKJUd0A5RfJnw3IHHn qCccZU5vzVEsZOahBy1ikJgmhS kxTS6fZDPexcdpCXYfuT4bQCMp oEKtnEpnJG5lSHDefigtt769 ZqRpJZD3TWYitDAdL2AllF4eZd AiJTHiALAzK4YrsPLmCIzqR953 CBjiIcJ0DZAexeMmV8EtNPDp pCrdDxK4y3X3Sq6sXt3cXL8wTK M6PX10CP83pFNqf4F5mKD8U4Hr EAJmevwsqdqztRE5MOCsCPCh nL41kLPuUPvzCt7wl8Q1f376VF ThVPNwiY26Ni6ltUqyDRZlgFAW yT8yxbyei6ctiymmQuAuPYPt HMm5TCj6MKQvcVocTbMhPZZ8Bu P6HVM6jZComQ4oiHhdsqfwlO8d Oyc+OabfRJSrocM3S7CeUce1 FKHctQlaWY7bqEItJYqqCw7piR jxaJrmFO7iDRUufwzrPTPhhF5x HVKasMNzuEkiSW3wOUDxnfdm u162NhMsUSH5VXPreOIwA5AwuT 6iVfUcBKVmNXRtC4SqoMWoDGhc W145RZpkFkI1KCOrgrKcQ9Ts BNMleTewMhH3c2F5Ao8LFL9WIS Y9Z8QbVut1ELSnbFigTN5mvASd ZIpxOo0nzFjsqUwiND2gQDXr mxzxKWYyiS7yGYXeyTOkfXviBH 4pWPNdpwnrl993SyNbBJW1LLWo lSKjC1UmeW9nGdKpEMVcNFMm Q6ByeOAjIQriF079HNpdXlA7JD SejtBeB4LoDBTnfNxkHiW8a7D4 Tz2PPYscmXY+FB14zk52I4Lw WzkmEvt7NGHwBSC4gXR3vW8nQG VoTLdek8B6pKX9W6ZohsXwfn7a v4qhLMItYCkvR44lpASke6M8 SNXjgTJ5LDYdzYtuHbAccM11Hw c+AYPsmElqz4EvEimcg3apu6vr mRe7SbVuMQDcfkDhbEjyAFS3 c8YcDu63Z28nYUqiSBWjJBClCD LoGOOytCtzhe7efM8aPv9+PGNv sZC8uAJ6xP0iEdIyIhL7FFpx X314LwVqsFDlTubly0oza2uhdS k1BpYmIWIqkaJujVftICE0w9Ub Dr04R1OlgOzkv1NjFab2le94 vXEmj2B2yOG3C6YeEEFulswdyJ KbuOlzIA3jXONwsbrzAFHwgH2o QKYfX3v1WeTcNkX3ROaoR5Xj xoM1WKXdfRRtUHDriPDFrV8xgo iap2hyiztoThIoUTYdGXj3TVy2 MRYlqGbdLeDoXFX6CoA0EPB8 jFDkwE8mxRavrfbpiB8wOgh+UG n7g9drmEUaUJ7yuQC6PL07ZN67 xHIjh6W1hJO6J7XwXVGnzbqb miyhoNF7WOCcKIXlzH45Pe1vqW tmCw9mTNZnVMA9LBOmzKExJ9Jv sW0xMcAnJYGjEIUjV8JoeMQn GWtyX782FDraDhS0ZLEsvlUaU9 VhFYPcjMyoJoO1q0D4Ou3AGD68 ON39UH32wPPly8J9cOV1T5Ew LJMtgwvhrmsdcWS9CTPyXIPebG 34Qk4nyAusUp2dNKKmUZT8GNUo gQMgT8QscQ7sHyDlJHTuYXGu P8XoeRSrMQewE347OMkdGmU3BJ QutzHkF2IgMTDqnZisPqG4m8H0 Ef6OTh62WW53QF35pWBxp3L2 zCZ7M5JoLKYgpaoxryeknFT9GZ OlJDHfxT29Pi8vhGjkGf6lJOKi ONH4GUZowFBjH1LylR9nKkDk HVCoSQYsT2DamUGbKVobI677NV vnQhQ4RVXlnzHmJ4IiERRgiOfd EiF7u8E7Oc4GVCbixtt6V0Me PjwvdHI+KW74DSZzNB21aQDhcX Vpc6ieqJi4PyQtURFgPKR7gZpl YJqtz1EeICRdS50yqRJov9K5 IGN (more content not included)... Normal [facility] X-ray reportOrdered By: Anna Melchor on 10-01-2024 Study report [facility] [address] [place] [address] XRay Report Signed Patient: Nadya Rodriguez MR#: [id number] : 1955 Acct:[id number] Age/Sex: 69 / F ADM Date: 5 Loc: [facility] Room: Type: [facility] Attending Dr: Marii Rios MD Copies to: Marii Rios MD~ Ordering Provider: Marii Rios MD Date of Service: 10/01/24 XR/XR [...] Mariel Melchor M.D.10/01/2024 1:39 PM Dictation Location: [place] [address] Transcribed By: [facility] 10/01/24 133 Dictated By: Mariel Melchor MD 10/01/241335 Signed By: 10/01/241338 [facility] Work Phone: XR wrist min BI 3Von 025 XR wrist min BI 3V [facility] [address] [place] [address] XRay Report Signed Patient: Nadya Rodriguez MR#: [id number] : 1955 Acct:[id number] Age/Sex: 69 / F ADM Date: 10/01/24 Loc: [facility] Room: Type: [facility] Attending Dr: Marii Rios MD Copies to: Marii Rios MD Ordering Provider: Marii Rios MD Date of Service: 10/01/24 XR/XR [...] Mariel Melchor M.D.10/01/2024 1:39 PM Dictation Location: [place] [address] Transcribed By: [facility] 10/01/24 1339 Dictated By: Mariel Melchor MD 10/01/24 1336 Signed By: 10/01/24 1339 Normal [facility] Influenza virus B Ag [Presen ce] in Upper respiratory specimen by Rapid immunoassayon 09-14-2024 FLUBV Ag IA.rapid Ql (Nph) Influenza virus B Ag [Presence] in Upper respiratory specimen by Rapid immunoassay [facility] No Panel Informationon 09-14 Influenza Type A (Rapid) Positive [facility] POC SARS CoV-2 Antigen Negative [facility] CT CARDIAC SCORING WO IV CON TRASTon [...] AM -------- ORIGINAL REPORT -------- Dictation workstation: [id number] Interpreted By: Roscoe Trejo, STUDY: CT CARDIAC SCORING WO IV CONTRAST; 08/26/2024 4:27 pm INDICATION: Signs/Symptoms:hypertensio n. COMPARISON: None. ACCESSION NUMBER(S): [id number] ORDERING CLINICIAN: INTERFACE UNSPECIFIELDPROVIDER TECHNIQUE: Using prospective [...] calcuate using link below https://www.kay-nhlbi.org /MESACHDRisk/[email or web address] /RiskScore.aspx Camelia. JACC 2014 (http://dx.doi.org/10.1016 /j.j acc.2015.08.035) Reading Manufacturing Engineering Professor: Dr. Roscoe Trejo, Date: 08/27/2024 8:24 am Signed by: Roscoe Trejo 08/27/2024 8:24 AM Dictation workstation: [id number] [facility] Amphetamine Screen Ql (U)Ord ered By: Nazario Asakhanh on 01-26-2024 Amphetamines Ql (U) Negative Negative [facility] Barbiturates [Presence] in U rine by Screen methodOrdered By: Imad Asaad on 01-26-2024 Barbiturates Screen Ql (U) Negative Negative [facility] Benzodiazepines Screen Ql (U )Ordered By: Imad Asaad on 01-26-2024 Benzodiazepines Ql (U) Negative Negative [facility] Benzoylecgonine [Presence] i n Urine by Screen methodOrdered By: Imad Asaad on 01-26-2024 Benzoylecgonine Screen Ql (U) Negative Negative [facility] Cannabinoids [Presence] in U rine by Screen methodOrdered By: Imad Asaad on 01-26-2024 Cannabinoids Screen Ql (U) Positive High Negative [facility] Comment on above: These are unconfirme d results and should not be used for legal purposes. Drug Cut-Off Concentration: AMPH 1000 ng/mL SONIDO 200 ng/mL MICHELLE 200 ng/mL COCM 300 ng/mL OP 300 ng/mL PCP 25 ng/mL THC 20 ng/mL Opiates [Presence] in Urine by Screen methodOrdered By: Imad Asaad on 01-26-2024 Opiates Screen Ql (U) Negative Negative [facility] Phencyclidine Screen Ql (U)O rdered By: Imad Asaad on 01-26-2024 Phencyclidine Ql (U) Negative Negative [facility] Amphetamine Screen Ql (U)Ord ered By: Jose Martin Nieves on 10-23-2023 Amphetamines Ql (U) Negative Negative [facility] Barbiturates [Presence] in U rine by Screen methodOrdered By: Jose Martin Nieves on 10-23-2023 Barbiturates Screen Ql (U) Negative Negative [facility] Benzodiazepines Screen Ql (U )Ordered By: Jose Martin Nieves on 10-23-2023 Benzodiazepines Ql (U) Negative Negative [facility] Benzoylecgonine [Presence] i n Urine by Screen methodOrdered By: Jose Martin Nieves on 10-23-2023 Benzoylecgonine Screen Ql (U) Negative Negative [facility] Cannabinoids [Presence] in U rine by Screen methodOrdered By: Jose Martin Nieves on 10-23-2023 Cannabinoids Screen Ql (U) Negative Negative [facility] Comment on above: These are unconfirme d results and should not be used for legal purposes. Drug Cut-Off Concentration: AMPH 1000 ng/mL SONIDO 200 ng/mL MICHELLE 200 ng/mL COCM 300 ng/mL OP 300 ng/mL PCP 25 ng/mL THC 20 ng/mL Opiates [Presence] in Urine by Screen methodOrdered By: Jose Martin Nieves on 10-23-2023 Opiates Screen Ql (U) Negative Negative [facility] Phencyclidine Screen Ql (U)O rdered By: Jose Martin Nieves on 10-23-2023 Phencyclidine Ql (U) Negative Negative [facility] Anisocytosis LM Ql (Bld)Orde red By: Luis Carlton on 10-10-2023 Anisocytosis Ql (Bld) Slight [facility] Automated erythrocytes count in urine sediment (number/area)Ordered By: Luis Carlton on 10-10-2023 RBC Auto (Urine sed) [#/Area] 0-1 [HPF] 0-4 [facility] Automated leukocytes count i n urine sediment (number/area)Ordered By: Luis Carlton on 10-10-2023 WBC Auto (Urine sed) [#/Area] 3-4 [HPF] 0-4 [facility] Basophils Auto (Bld) [#/Vol] Ordered By: Luis Carlton on 10-10-2023 Basophils (Bld) [#/Vol] 0.0 10*3/uL 0.0-0.2 [facility] Basophils/100 WBC Auto (Bld) Ordered By: Luis Carlton on 10-10-2023 Basophils/100 WBC (Bld) 0.6 % . [facility] Bilirubin Test strip Ql (U)O rdered By: Luis Carlton on 10-10-2023 Bilirubin Ql (U) Negative Negative [facility] Calcium [Mass/volume] in Ser um or PlasmaOrdered By: Luis Carlton on 10-10-2023 Calcium [Mass/Vol] 10.0 mg/dL 8.6-10.3 [facility] Carbon dioxide, total [Moles /volume] in Serum or PlasmaOrdered By: Luis Carlton on 10-10-2023 CO2 [Moles/Vol] 26.0 mmol/L 21.0-31.0 [facility] Chloride [Moles/volume] in S leann or PlasmaOrdered By: Luis Carlton on 10-10-2023 Chloride [Moles/Vol] 105 mmol/L 98-107 [facility] Color Auto (U)Ordered By: Guillermina Carlton on 10-10-2023 Color (U) Yellow Yellow [facility] Creatinine [Mass/volume] in Serum or PlasmaOrdered By: Luis Carlton on 10-10-2023 Creatinine [Mass/Vol] 0.65 mg/dL 0.60-1.20 [facility] Eosinophils Auto (Bld) [#/Vo l]Ordered By: Luis Carlton on 10-10-2023 Eosinophils (Bld) [#/Vol] 0.1 10*3/uL 0.0-0.45 [facility] Eosinophils/100 WBC Auto (Bl d)Ordered By: Luis Carlton on 10-10-2023 Eosinophils/100 WBC (Bld) 1.5 % . [facility] Erythrocyte distribution wid th Auto (RBC) [Ratio]Ordered By: Luis Carlton on 10-10-2023 Erythrocyte distribution width (RBC) [Ratio] 14.3 % 11.9-15.3 [facility] Fructosamine [Moles/volume] in Serum or PlasmaOrdered By: Luis Carlton on 10-10-2023 Fructosamine [Moles/Vol] 213 umol/L 0-285 [facility] Comment on above: Published reference interval for apparently healthysubjects between age 20 and 60 is 205 - 285 umol/L and in apoorly controlled diabetic population is 228 - 563 umol/Lwith a mean of 396 umol/L.Performed at: [facility] [id number] Director: Zia Rome PhD, Phone: [phone] Glucose [Mass/volume] in Ser um or PlasmaOrdered By: Luis Carlton on 10-10-2023 Glucose [Mass/Vol] 73 mg/dL 70-100 [facility] Comment on above: ADA recommended refe rence rangeRandom Glucose Reference Range is dependent on time and content of last meal. Glucose of more than 200 mg/dL in a nonstressed, ambulatory subject supports the diagnosis of Diabetes Mellitus. Hematocrit Auto (Bld) [Volum e fraction]Ordered By: Luis Carlton on 10-10-2023 Hematocrit (Bld) [Volume fraction] 39.9 % 34.0-46.4 [facility] Hemoglobin [Mass/volume] in BloodOrdered By: Luis Carlton on 10-10-2023 Hemoglobin (Bld) [Mass/Vol] 13.3 g/dL 11.8-15.4 [facility] Ketones Auto test strip (U) [Mass/Vol]Ordered By: Luis Carlton on 10-10-2023 Ketones (U) [Mass/Vol] Negative Negative [facility] Laboratory - UrinalysisOrder ed By: Luis Carlton on 10-10-2023 Hyaline casts LM Ql (Urine sed) 0-8 [LPF] 0-8 [facility] Leukocytes [#/volume] correc loraine for nucleated erythrocytes in Blood by Automated counOrdered By: Luis Carlton on 10-10-2023 WBC corrected for nucl RBC Auto (Bld) [#/Vol] 6.1 10*3/uL 3.8-11.6 [facility] Lymphocytes Auto (Bld) [#/Vo l]Ordered By: Luis Carlton on 10-10-2023 Lymphocytes (Bld) [#/Vol] 2.0 10*3/uL 1.00-4.8 [facility] Lymphocytes/100 WBC Auto (Bl d)Ordered By: Luis Carlton on 10-10-2023 Lymphocytes/100 WBC (Bld) 32.5 % . [facility] MCH Auto (RBC) [Entitic mass ]Ordered By: Luis Carlton on 10-10-2023 MCH (RBC) [Entitic mass] 30.9 pg 24.7-34.3 [facility] MCHC Auto (RBC) [Mass/Vol]Or dered By: Luis Carlton on 10-10-2023 MCHC (RBC) [Mass/Vol] 33.3 g/dL 32.0-35.0 [facility] MCV Auto (RBC) [Entitic vol] Ordered By: Luis Carlton on 10-10-2023 MCV (RBC) [Entitic vol] 92.9 fL 80-100 [facility] Microcytes LM Ql (Bld)Ordere d By: Luis Carlton on 10-10-2023 Microcytes Ql (Bld) Slight [facility] Monocytes Auto (Bld) [#/Vol] Ordered By: Luis Carlton on 10-10-2023 Monocytes (Bld) [#/Vol] 0.4 10*3/uL 0.0-0.8 [facility] Monocytes/100 WBC Auto (Bld) Ordered By: Luis Carlton on 10-10-2023 Monocytes/100 WBC (Bld) 6.3 % . [facility] Neutrophils Auto (Bld) [#/Vo l]Ordered By: Luis Carlton on 10-10-2023 Neutrophils (Bld) [#/Vol] 3.6 10*3/uL 1.8-7.7 [facility] Neutrophils/100 WBC Auto (Bl d)Ordered By: Luis Carlton on 10-10-2023 Neutrophils/100 WBC (Bld) 59.1 % . [facility] Nitrite Test strip Ql (U)Ord ered By: Luis Carlton on 10-10-2023 Nitrite Ql (U) Negative Negative [facility] No Panel InformationOrdered By: Luis Carlton on 10-10-2023 Estimated GFR (CKD-EPI) > 60.0 mL/Min [facility] Creatinine Clearance (Chem N/A [facility] Nucleated erythrocytes [Pres ence] in Blood by Automated countOrdered By: Luis Carlton on 10-10-2023 Nucleated RBC Auto Ql (Bld) 0.1 /100{WBC} 0-0.5 [facility] Platelet adequacy [Presence] in Blood by Light microscopyOrdered By: Luis Carlton on 10-10-2023 Platelets LM Ql (Bld) Normal Normal [facility] Platelet mean volume Auto (B ld) [Entitic vol]Ordered By: Luis Carlton on 10-10-2023 Platelet mean volume (Bld) [Entitic vol] 10.3 fL 6.3-10.7 [facility] Platelet morphology finding [Identifier] in BloodOrdered By: Luis Carlton on 10-10-2023 Platelet morphology finding Nom (Bld) Normal Normal [facility] Platelets Auto (Bld) [#/Vol] Ordered By: Luis Carlton on 10-10-2023 Platelets (Bld) [#/Vol] 234 10*3/uL 150-450 [facility] Potassium [Moles/volume] in Serum or PlasmaOrdered By: Luis Carlton on 10-10-2023 Potassium [Moles/Vol] 4.2 mmol/L 3.5-5.1 [facility] Protein Auto test strip (U) [Mass/Vol]Ordered By: Luis Carlton on 10-10-2023 Protein (U) [Mass/Vol] Negative Negative [facility] RBC Auto (Bld) [#/Vol]Ordere d By: Luis Carlton on 10-10-2023 RBC (Bld) [#/Vol] 4.29 10*6/uL 3.60-5.00 [facility] RBC morphologyOrdered By: Guillermina Carlton on 10-10-2023 RBC morphology finding Nom (Bld) N/A [facility] Serum or plasma anion gap de terminationOrdered By: Luis Carlton on 10-10-2023 Anion gap [Moles/Vol] 13.2 mmol/L 6.0-15.0 [facility] Sodium [Moles/volume] in Ser um or PlasmaOrdered By: Luis Carlton on 10-10-2023 Sodium [Moles/Vol] 140 mmol/L 136-145 [facility] Specific gravity Auto test s trip (U) [Rel density]Ordered By: Luis Carlton on 10-10-2023 Specific gravity (U) [Rel density] 1.012 1.001-1.03 0 [facility] Squamous epithelial cells de tection in urine sediment by light microscopyOrdered By: Luis Carlton on 10-10-2023 Epithelial cells.squamous LM Ql (Urine sed) 0-1 [HPF] 0-2 [facility] Urea nitrogen [Mass/volume] in Serum or PlasmaOrdered By: Luis Carlton on 10-10-2023 Urea nitrogen [Mass/Vol] 14 mg/dL 7-25 [facility] Urine bacteria detection by automated methodOrdered By: Luis Carlton on 10-10-2023 Bacteria Auto Ql (U) None seen None Seen [facility] Urine clarity by refractomet ry automatedOrdered By: Luis Carlton on 10-10-2023 Clarity Refractometry automated (U) Clear Clear [facility] Urine glucose measurement by automated test strip (mass/volume)Ordered By: Luis Carlton on 10-10-2023 Glucose Auto test strip (U) [Mass/Vol] Normal mg/dL Normal [facility] Urine hemoglobin detection b y automated test stripOrdered By: Luis Carlton on 10-10-2023 Hemoglobin Auto test strip Ql (U) Negative Negative [facility] Urine leukocyte esterase det ection by automated test stripOrdered By: Luis Carlton on 10-10-2023 Leukocyte esterase Auto test strip Ql (U) 2+ Negative [facility] Urobilinogen Auto test strip (U) [Mass/Vol]Ordered By: Luis Carlton on 10-10-2023 Urobilinogen (U) [Mass/Vol] Normal mg/dL Normal [facility] WBC Auto (Bld) [#/Vol]Ordere d By: Luis Carlton on 10-10-2023 WBC (Bld) [#/Vol] 6.1 10*3/uL 3.8-11.6 [facility] pH Auto test strip (U)Ordere d By: Luis Carlton on 10-10-2023 pH (U) 5.5 [pH] 5.0-9.0 [facility] Albumin [Mass/volume] in Ser um or Plasma by Bromocresol green (BCG) dye binding methoOrdered By: Luis Carlton on 09-26-2023 Albumin BCG dye [Mass/Vol] 4.5 g/dL 3.5-5.7 [facility] Cotinine [Mass/volume] in Se rum or PlasmaOrdered By: Luis Carlton on 09-26-2023 Cotinine [Mass/Vol] <1.0 ng/mL . [facility] Comment on above: This test was develo ped and its performance characteristicsdetermined by [facility]. It has not been cleared orapproved by the Food and Drug Administration.Cotinine levels greater than 20.0 are consistent with theuse of tobacco or tobacco cessation products.Performed at: [facility] [employer] [id number] Director: Vania Mendoza MD, Phone: [phone] Glucose mean value [Mass/vol ume] in Blood Estimated from glycated hemoglobinOrdered By: Luis Carlton on 09-26-2023 Average glucose Estimated from glycated hemoglobin (Bld) [Mass/Vol] 105 mg/dL [facility] Hemoglobin A1c percentageOrd ered By: Luis Carlton on 09-26-2023 HbA1c (Bld) [Mass fraction] 5.3 % 4.3-5.6 [facility] Comment on above: Increased risk for d iabetes: 5.7 - 6.4diabetes: >6.4glycemic control for adults with diabetes: <7.0 Hemoglobin [Mass/volume] in BloodOrdered By: Luis Carlton on 09-26-2023 Hemoglobin (Bld) [Mass/Vol] 13.1 g/dL 11.8-15.4 [facility] Nicotine [Mass/volume] in Se rum or PlasmaOrdered By: Luis Carlton on 09-26-2023 Nicotine [Mass/Vol] <1.0 ng/mL . [facility] Comment on above: This test was develo ped and its performance characteristicsdetermined by [facility]. It has not been cleared orapproved by the Food and Drug Administration.Nicotine levels greater than 2.0 are consistent with theuse of tobacco or tobacco cessation products. Vitamin D+Metabolites [Mass/ volume] in Serum or PlasmaOrdered By: Luis Carlton on 09-26-2023 Vitamin D+Metabolites [Mass/Vol] 20.9 ng/mL 30-100 [facility] Comment on above: VITAMIN D STATUS 25( [place])VITAMIN D RANGE (ng/mL) Deficient <20 Insufficient 20 to <30Sufficient 30 to 100Reference: Francis MF,Brittnee NOE, Alana ATKINSON, et al. Evaluation,treatment, and prevention of vitamin D deficiency; an Endocrine Society clinical practice guideline. JCEM. 2010; 96(7):1911-30. Wound methicillin resistant Staphylococcus aureus (MRSA) cultureOrdered By: Luis Carlton on 09-26-2023 MRSA isol Org specific cx Ql (Unsp spec) [facility] XR shoulder LT min 2V*on XR shoulder LT min 2V* [facility] Other XR shoulder LT min 2V* [facility] Main [facility] Other XR shoulder LT min 2V* [address] [place] [address] [employer] [facility] Other XR shoulder LT min 2V* [place] [address] [facility] Other XR shoulder LT min 2V* XRay Report [facility] Other XR shoulder LT min 2V* Signed [facility] Other XR shoulder LT min 2V* Patient: Nadya Rodriguez MR#: [id number] [facility] Other XR shoulder LT min 2V* 1147 [facility] Other XR shoulder LT min 2V* : 1955 Acct:[id number] [facility] Other XR shoulder LT min 2V* Age/Sex: 68 / F ADM Date: 07/13/23 [facility] Other XR shoulder LT min 2V* Loc: [facility]D Room: Type: [facility] Other XR shoulder LT min 2V* Attending Dr: Luis Carlton II, MD [facility] Other XR shoulder LT min 2V* Copies to: Luis Carlton MD [facility] Other XR shoulder LT min 2V* Ordering Provider: Luis Carlton MD [facility] Other XR shoulder LT min 2V* Date of Service: 07/13/23 [facility] Other XR shoulder LT min 2V* XR/XR shoulder LT min 2V*: PAIN [facility] Other XR shoulder LT min 2V* 3 views LEFT shoulder plain film [facility] Other XR shoulder LT min 2V* HISTORY: Generalized LEFT shoulder pain for weeks [facility] Other XR shoulder LT min 2V* COMPARISON: None [facility] Other XR shoulder LT min 2V* ACUTE FINDINGS: None [facility] Other XR shoulder LT min 2V* DEGENERATIVE CHANGE: Spurring of acromioclavicular joint and glenohumeral joint. Adequate joint [facility] Other XR shoulder LT min 2V* space. [facility] Other XR shoulder LT min 2V* SOFT TISSUE FINDINGS: Unremarkable [facility] Other XR shoulder LT min 2V* JOINT EFFUSION: None [facility] Other XR shoulder LT min 2V* POSTOP CHANGES: None [facility] Other XR shoulder LT min 2V* BONY MINERALIZATION: Adequate [facility] Other XR shoulder LT min 2V* XR/XR shoulder LT min 2V* [facility] Other XR shoulder LT min 2V* IMPRESSION: Degenerative change. [facility] Other XR shoulder LT min 2V* Impression dictated by: Angel Luis King M.D.07/13/2023 2:02 PM [facility] Other XR shoulder LT min 2V* Dictation Location: [place] [address] [facility] Other XR shoulder LT min 2V* Transcribed By: PWS 07/13/23 [facility] Other XR shoulder LT min 2V* Dictated By: Angel Luis King DO 07/13/23 [facility] Other XR shoulder LT min 2V* Signed By: [facility] Other XR shoulder LT min 2V* 07/13/23 [facility] Other LIPID PROFILEon 10-27-2022 CHOL-HDL RATIO NORM SEE BELOW Normal [facility] Comment on above: Result Comment: 3.3 - 4.4 LOW RISK 4.4 - 7.1 AVERAGE RISK 7.1 - 11.0 MODERATE RISK >11.0 HIGH RISK Performed By: #### L IPID, LIVER #### [facility] [address] [place] [address] Dr. Favio Cueto Cholesterol [Mass/Vol] 168 mg/dL Normal <=200 [facility] Comment on above: Performed By: #### L IPID, LIVER #### [facility] [address] [address] [address] Favio Cueto Cholesterol in HDL [Mass/Vol] 61 mg/dL Critically high 40-60 [facility] Comment on above: Performed By: #### L IPID, LIVER #### [facility] [address] [address] [address] Favio Cueto Cholesterol in LDL [Mass/Vol] 91.4 mg/dL Normal [facility] Comment on above: Performed By: #### L IPID, LIVER #### [facility] [address] [place] [address] Dr. Favio Cueto Cholesterol.total/Cho lesterol in HDL [Mass ratio] 2.8 {ratio} Normal [facility] Comment on above: Performed By: #### L IPID, LIVER #### [facility] [address] [place] [address] Dr. Favio Cueto HDL NORMAL > or = 60 mg/dl - LO W CARDIOVASCULAR RISK <40 mg/dl - HIGH CARDIOVASCULAR RISK Normal [facility] Comment on above: Performed By: #### L IPID, LIVER #### [facility] [address] [place] [address] Dr. Favio Cueto LDL CALC NORMAL SEE BELOW Normal [facility] Comment on above: Result Comment: <100 mg/dl OPTIMAL 100 - 129 mg/dl NEAR OR ABOVE OPTIMAL 130 - 159 mg/dl BORDERLINE HIGH 160 - 189 mg/dl HIGH >190 mg/dl VERY HIGH Performed By: #### L IPID, LIVER #### [facility] [address] [place] [address] Dr. Favio Cueto Triglyceride [Mass/Vol] 78 mg/dL Normal <=150 [facility] Comment on above: Performed By: #### L IPID, LIVER #### [facility] [address] [place] [address] Dr. Favio Cueto VLDL CALC 15.6 mg/dL Normal [facility] Comment on above: Performed By: #### L IPID, LIVER #### [facility] [address] [place] [address] Dr. Favio Cueto LIVER PROFILEon 10-27-2022 Albumin [Mass/Vol] 4.3 g/dL Normal 3.4-5.0 [facility] Comment on above: Performed By: #### L IPID, LIVER #### [facility] [address] [place] [address] Dr. Favio Cueto Albumin/Globulin [Mass ratio] 1.5 {ratio} Normal [facility] Comment on above: Performed By: #### L IPID, LIVER #### [facility] [address] [place] [address] Dr. Favio Cueto ALP [Catalytic activity/Vol] 55 U/L Normal 46-116 [facility] Comment on above: Performed By: #### L IPID, LIVER #### [facility] [address] [place] [address] Dr. Favio Cueto ALT [Catalytic activity/Vol] 23 U/L Normal 14-59 [facility] Comment on above: Performed By: #### L IPID, LIVER #### [facility] [address] [place] [address] Dr. Favio Cueto AST [Catalytic activity/Vol] 15 U/L Normal 15-37 [facility] Comment on above: Performed By: #### L IPID, LIVER #### [facility] [address] [place] [address] Dr. Favio ALMANZAI, CONJUGATED 0.2 mg/dL Normal 0.0-0.2 [facility] Comment on above: Performed By: #### L IPID, LIVER #### [facility] [address] [place] [address] Dr. Favio Cueto Bilirubin [Mass/Vol] 0.7 mg/dL Normal 0.2-1.0 [facility] Comment on above: Performed By: #### L IPID, LIVER #### [facility] [address] [place] [address] Dr. Favio Cueto Globulin (S) [Mass/Vol] 2.8 g/dL Normal [facility] Comment on above: Performed By: #### L IPID, LIVER #### [facility] [address] [place] [address] Dr. Favio Cueto Protein [Mass/Vol] 7.1 g/dL Normal 6.4-8.2 [facility] Comment on above: Performed By: #### L IPID, LIVER #### [facility] [address] [place] [address] Dr. Favio Cueto MG MAMM SCREEN 3D ARCHIE CADon 03-30-2023 MG MAMM SCREEN 3D ARCHIE CAD Patient: NADYA RODRIGUEZ Exam Date: 10/27/2022 : 1955 Gender:F Ordering : SHAIKH Rosa SANTORO . Admission #: [id number] Family : Order #: [id number] CLICK HERE TO VIEW EXAM RADIOLOGY REPORT PROCEDURE: MAMMOGRAM SCREENING 3D BILATERAL CAD COMPARISON: None. INDICATIONS: Screening mammography Calculator Name NCI Breast Cancer Risk Assessment Tool 5 Year Breast Cancer Risk 1.30% Lifetime Breast Cancer Risk 5.00% Personal Breast Cancer No Personal Ovarian Cancer No Treatments None Family Cancers None LOCATION: [facility] BREAST COMPOSITION: Heterogeneously dense,which may obscure small [...] LUMP SHOULD BE BIOPSIED. Dictated by: Hollie Loving MD on 11/23/2022 at 08:15 Approved by: Hollie Loving MD on 11/23/2022 at 08:22 Normal [facility] CT LUNG CANCER SCREENINGon 0 04-05-2022 CT [...] in 12 months. Electronically authenticated by: HOLLIE LOVING Date: 2022-04-05 10:37 Normal [facility] Vital Signs Date Time Vital Sign Value Performing Clinician Keri watson 01-03-2025 10:27-0400 Body height 160 cm Rogelio Coleman MD Work Phone: [facility] 01-03-2025 10:27-0400 Body mass index (BMI) [Ratio] 24.62 kg/m2 Rogelio Coleman MD Work Phone: [facility] 01-03-2025 10:27-0400 Body temperature 97.11 [degF] Rogelio Coleman MD Work Phone: [facility] 01-03-2025 10:27-0400 Body weight 63.05 kg Rogelio Coleman MD Work Phone: [facility] 01-03-2025 10:27-0400 Diastolic blood pressure 60 mm[Hg] Rogelio Coleman MD Work Phone: [facility] 01-03-2025 10:27-0400 Heart rate 97 /min Rogelio Coleman MD Work Phone: [facility] 01-03-2025 10:27-0400 Respiratory rate 22 /min Rogelio Coleman MD Work Phone: [facility] 01-03-2025 10:27-0400 SaO2% (BldA) [Mass fraction] 97 % Rogelio Coleman MD Work Phone: [facility] 01-03-2025 10:27-0400 Systolic blood pressure 106 mm[Hg] Rogelio Coleman MD Work Phone: [facility] 12-18-2024 17:25-0400 Diastolic blood pressure 68 mm[Hg] Shaikh Maude WEBBER Work Phone: [facility] 12-18-2024 17:25-0400 Heart rate 81 /min Shaikh Maude WEBBER Work Phone: [facility] 12-18-2024 17:25-0400 Respiratory rate 16 /min Shaikh Maude WEBBER Work Phone: [facility] 12-18-2024 17:25-0400 SaO2% (BldA) [Mass fraction] 96 % Shaikh Maude WEBBER Work Phone: [facility] 12-18-2024 17:25-0400 Systolic blood pressure 115 mm[Hg] Shaikh Maude WEBBER Work Phone: [facility] 12-18-2024 12:11-0400 Body height 1920.24 cm Shaikh Maude WEBBER Work Phone: [facility] 12-18-2024 12:11-0400 Body temperature 98 [degF] Shaikh Maude WEBBER Work Phone: [facility] 12-18-2024 12:11-0400 Body weight 63 kg Shaikh Maude WEBBER Work Phone: [facility] 12-12-2024 09:03-0400 Body height 160.02 cm Shaikh Maude WEBBER Work Phone: [facility] 12-12-2024 09:03-0400 Body temperature 98.6 [degF] Shaikh Maude WEBBER Work Phone: [facility] 12-12-2024 09:03-0400 Body weight 63 kg Shaikh Maude WEBBER Work Phone: [facility] 12-12-2024 09:03-0400 Diastolic blood pressure 77 mm[Hg] Shaikh Maude WEBBER Work Phone: [facility] 12-12-2024 09:03-0400 Heart rate 74 /min Shaikh Maude WEBBER Work Phone: [facility] 12-12-2024 09:03-0400 Respiratory rate 20 /min Shaikh Maude WEBBER Work Phone: [facility] 12-12-2024 09:03-0400 SaO2% (BldA) [Mass fraction] 98 % Shaikh Maude WEBBER Work Phone: [facility] 12-12-2024 09:03-0400 Systolic blood pressure 123 mm[Hg] Shaikh Maude WEBBER Work Phone: [facility] 12-10-2024 13:11-0400 Body height 160 cm Michael Carrillo [employer] CALL[employer] NURSE PRACTITIONER-[employer]ING [employer]OCIATE Work Phone: [facility] 12-10-2024 13:11-0400 Body mass index (BMI) [Ratio] 24.62 kg/m2 Michael Carrillo HOUSE CALLS NURSE PRACTITIONER-[employer]ORE MARKETING ASSOCIATE Work Phone: [facility] 12-10-2024 13:11-0400 Body weight 63.05 kg Michael Carrillo HOUSE CALLS NURSE PRACTITIONER-[employer]ORE MARKETING ASSOCIATE Work Phone: [facility] 12-10-2024 13:11-0400 Diastolic blood pressure 60 mm[Hg] Michael Carrillo HOUSE CALLS NURSE PRACTITIONER-IN STORE MARKETING ASSOCIATE Work Phone: [facility] 12-10-2024 13:11-0400 Heart rate 86 /min Michael Carrillo HOUSE CALLS NURSE PRACTITIONER-IN STORE MARKETING ASSOCIATE Work Phone: [facility] 12-10-2024 13:11-0400 Systolic blood pressure 100 mm[Hg] Michael Carrillo HOUSE CALLS NURSE PRACTITIONER-IN STORE MARKETING ASSOCIATE Work Phone: [facility] 12-06-2024 10:00-0400 Diastolic blood pressure 59 mm[Hg] Shaikh Maude WEBBER Work Phone: [facility] 12-06-2024 10:00-0400 Heart rate 59 /min Shaikh Maude WEBBER Work Phone: [facility] 12-06-2024 10:00-0400 Respiratory rate 16 /min Shaikh Maude WEBBER Work Phone: [facility] 12-06-2024 10:00-0400 SaO2% (BldA) [Mass fraction] 96 % Shaikh Maude WEBBER Work Phone: [facility] 12-06-2024 10:00-0400 Systolic blood pressure 98 mm[Hg] Shaikh Maude WEBBER Work Phone: [facility] 11-06-2024 12:35-0400 Diastolic blood pressure 50 mm[Hg] Shaikh Maude WEBBER Work Phone: [facility] 11-06-2024 12:35-0400 Heart rate 74 /min Shaikh Maude WEBBER Work Phone: [facility] 11-06-2024 12:35-0400 Respiratory rate 16 /min Shaikh Maude WEBBER Work Phone: [facility] 11-06-2024 12:35-0400 SaO2% (BldA) [Mass fraction] 97 % Shaikh Maude WEBBER Work Phone: [facility] 11-06-2024 12:35-0400 Systolic blood pressure 111 mm[Hg] Shaikh Maude WEBBER Work Phone: [facility] 11-06-2024 10:07-0400 Body height 160.02 cm Shaikh Maude WEBBER Work Phone: [facility] 11-06-2024 10:07-0400 Body temperature 98.1 [degF] Shaikh Maude WEBBER Work Phone: [facility] 11-06-2024 10:07-0400 Body weight 62 kg Shaikh Maude WEBBER Work Phone: [facility] 10-17-2024 10:45-0400 Body height 170.2 cm Marii Hurst MD [facility] 10-17-2024 10:45-0400 Body mass index (BMI) [Ratio] 20.99 kg/m2 Marii Hurst MD Work Phone: [facility] 10-17-2024 10:45-0400 Body weight 60.78 kg Marii Hurst MD Work Phone: [facility] 10-17-2024 10:45-0400 Diastolic blood pressure 80 mm[Hg] Marii Hurst MD Work Phone: [facility] 10-17-2024 10:45-0400 Heart rate 70 /min Marii Hurst MD Work Phone: [facility] 10-17-2024 10:45-0400 Systolic blood pressure 136 mm[Hg] Marii Hurst MD Work Phone: [facility] 09-14-2024 10:05-0500 Body height 160.02 cm [facility] 09-14-2024 10:05-0500 Body mass index (BMI) [Ratio] 23.6 kg/m2 [facility] 09-14-2024 10:05-0500 Body temperature 97.3 [degF] [facility] 09-14-2024 10:05-0500 Body weight 60.49 kg [facility] 09-14-2024 10:05-0500 Diastolic blood pressure 70 mm[Hg] [facility] 09-14-2024 10:05-0500 Heart rate 106 /min [facility] 09-14-2024 10:05-0500 Respiratory rate 18 /min [facility] 09-14-2024 10:05-0500 SaO2% (BldA) [Mass fraction] 97 % [facility] 09-14-2024 10:05-0500 Systolic blood pressure 118 mm[Hg] [facility] 09-06-2024 13:10-0500 Body height 160 cm Billy Finch MD Work Phone: [facility] 09-06-2024 13:10-0500 Body mass index (BMI) [Ratio] 23.74 kg/m2 Billy Finch MD Work Phone: [facility] 09-06-2024 13:10-0500 Body weight 60.78 kg Billy Finch MD Work Phone: [facility] 09-06-2024 13:10-0500 Diastolic blood pressure 73 mm[Hg] Billy Finch MD Work Phone: [facility] 09-06-2024 13:10-0500 Heart rate 98 /min Billy Finch MD Work Phone: [facility] 09-06-2024 13:10-0500 Systolic blood pressure 112 mm[Hg] Billy Finch MD Work Phone: [facility] 08-29-2024 08:24-0500 Body mass index (BMI) [Ratio] 23.88 kg/m2 Tristian Bearden HEALTH CARE CONSULTANT Work Phone: [facility] 08-29-2024 08:24-0500 Body temperature 98.71 [degF] Tristian Bearden HEALTH CARE CONSULTANT Work Phone: [facility] 08-29-2024 08:24-0500 Body weight 61.15 kg Tristian Bearden HEALTH CARE CONSULTANT Work Phone: [facility] 08-29-2024 08:24-0500 Diastolic blood pressure 80 mm[Hg] Tristian Bearden HEALTH CARE CONSULTANT Work Phone: [facility] 08-29-2024 08:24-0500 Heart rate 71 /min Tristian Bearden HEALTH CARE CONSULTANT Work Phone: [facility] 08-29-2024 08:24-0500 Respiratory rate 18 /min Tristian Bearden HEALTH CARE CONSULTANT Work Phone: [facility] 08-29-2024 08:24-0500 SaO2% (BldA) [Mass fraction] 94 % Tristian Bearden HEALTH CARE CONSULTANT Work Phone: [facility] 08-29-2024 08:24-0500 Systolic blood pressure 134 mm[Hg] Tristian Bearden HEALTH CARE CONSULTANT Work Phone: [facility] 06-18-2024 08:25-0500 Body height 160 cm Tristian Bearden HEALTH CARE CONSULTANT Work Phone: [facility] 06-18-2024 08:25-0500 Body mass index (BMI) [Ratio] 24.99 kg/m2 Tristian Bearden HEALTH CARE CONSULTANT Work Phone: [facility] 06-18-2024 08:25-0500 Body temperature 96.91 [degF] Tristian Bearden HEALTH CARE CONSULTANT Work Phone: [facility] 06-18-2024 08:25-0500 Body weight 64 kg Tristian Bearden HEALTH CARE CONSULTANT Work Phone: [facility] 06-18-2024 08:25-0500 Diastolic blood pressure 72 mm[Hg] Tristian Bearden HEALTH CARE CONSULTANT Work Phone: [facility] 06-18-2024 08:25-0500 Heart rate 69 /min Tristian Bearden HEALTH CARE CONSULTANT Work Phone: [facility] 06-18-2024 08:25-0500 Respiratory rate 16 /min Tristian Bearden HEALTH CARE CONSULTANT Work Phone: [facility] 06-18-2024 08:25-0500 SaO2% (BldA) [Mass fraction] 98 % Tristian Bearden HEALTH CARE CONSULTANT Work Phone: [facility] 06-18-2024 08:25-0500 Systolic blood pressure 130 mm[Hg] Tristian Bearden HEALTH CARE CONSULTANT Work Phone: [facility] 01-26-2024 10:55-0400 Diastolic blood pressure 72 mm[Hg] MD Shaikh Santoro Work Phone: [facility] 01-26-2024 10:55-0400 Heart rate 81 /min MD Shaikh Santoro Work Phone: [facility] 01-26-2024 10:55-0400 Respiratory rate 16 /min MD Shaikh Santoro Work Phone: [facility] 01-26-2024 10:55-0400 SaO2% (BldA) [Mass fraction] 100 % MD Shaikh Santoro Work Phone: [facility] 01-26-2024 10:55-0400 Systolic blood pressure 126 mm[Hg] MD Shaikh Santoro Work Phone: [facility] 01-26-2024 08:35-0400 Body height 160.02 cm MD Shaikh Santoro Work Phone: [facility] 01-26-2024 08:35-0400 Body weight 63.5 kg MD Shaikh Santoro Work Phone: [facility] 10-23-2023 16:00-0400 Diastolic blood pressure 68 mm[Hg] PHYSICIAN NO [facility] 10-23-2023 16:00-0400 Heart rate 68 /min PHYSICIAN NO [facility] 10-23-2023 16:00-0400 Respiratory rate 16 /min PHYSICIAN NO [facility] 10-23-2023 16:00-0400 SaO2% (BldA) [Mass fraction] 99 % PHYSICIAN NO [facility] 10-23-2023 16:00-0400 Systolic blood pressure 120 mm[Hg] PHYSICIAN NO [facility] 10-23-2023 12:33-0400 Body temperature 98.6 [degF] PHYSICIAN NO [facility] 10-23-2023 12:33-0400 Inhaled oxygen flow rate 10 L/min PHYSICIAN NO [facility] 10-23-2023 08:59-0400 Body height 160.02 cm PHYSICIAN NO [facility] 10-23-2023 08:59-0400 Body mass index (BMI) [Ratio] 23.4 kg/m2 PHYSICIAN NO [facility] 10-23-2023 08:59-0400 Body weight 60 kg PHYSICIAN NO [facility] 10-13-2023 08:41-0400 Body height 160.02 cm PHYSICIAN NO [facility] 10-13-2023 08:41-0400 Body mass index (BMI) [Ratio] 23.6 kg/m2 PHYSICIAN NO [facility] 10-13-2023 08:41-0400 Body weight 60.32 kg PHYSICIAN NO [facility] 02-17-2009 10:27-0400 Body height 170.2 cm Marii Hurst MD Work Phone: [facility] [employer] [facility] 02-17-2009 10:27-0400 Body mass index (BMI) [Ratio] 21.14 kg/m2 Marii Hurst MD Work Phone: [facility] [facility] 02-17-2009 10:27-0400 Body weight 61.24 kg Marii Hurst MD Work Phone: [facility] [employer] [facility] 02-17-2009 10:27-0400 Diastolic blood pressure 70 mm[Hg] Marii Hurst MD [facility] Phone[facility] 02-17-2009 10:27-0400 Heart rate 100 /min Marii Hurst MD Work Phone: [employer] 02-17-2009 10:27-0400 Systolic blood pressure 103 mm[Hg] Marii Hurst MD Work Phone: [facility] [employer] [facility] Encounters Encounter Date Encounter Type Care Provider Facility Start: 01-24-2025 End: 01-24-2025 Clinisync Result Encounter Rogelio Coleman MD Work Phone: [facility] Unsolicited Start: 01-24-2025 End: 01-24-2025 Clinisync Result Encounter Rogelio Coleman MD Work Phone: [facility] Unsolicited Start: 01-03-2025 End: 01-03-2025 Bamboo flowsheet Rogelio Coleman MD Work Phone: [facility] Start: 01-03-2025 End: 01-03-2025 Bamboo flowsheet Rogelio Coleman MD Work Phone: [facility] Start: 01-03-2025 End: 01-03-2025 Office outpatient visit 15 minutes Rogelio Coleman MD Work Phone: [facility] Comment on above: Mixed hyperlipidemia (CMS/HCC) (Primary Dx); Former smoker; Centrilobular emphysema (CMS/HCC) Start: 01-03-2025 End: 01-03-2025 ambulatory ROGELIO COLEMAN Not Available Start: 12-18-2024 End: 12-18-2024 Admission to same day surgery center Remy Olivarez DO -Account [employer] Work Phone: Start: 12-18-2024 End: 12-18-2024 ambulatory Remy Olivarez Facility:[facility] Start: 12-16-2024 End: 12-16-2024 ambulatory Shaikh Maude WEBBER Work Phone: [facility] Work Phone: Start: 12-16-2024 End: 12-16-2024 Departed Referred Remy Olivarez DO -Account [employer] Work Phone: Start: 12-12-2024 End: 12-12-2024 Patient encounter procedure Remy Olivarez DO -Pre-Surgical Testing Work Phone: Start: 12-12-2024 End: 12-12-2024 ambulatory Rogelio Coleman Facility:[facility] Start: 12-12-2024 Encounter for preprocedural laboratory examination Remy Olivarez [facility] Start: 12-10-2024 End: 12-10-2024 Office consultation new/estab patient 40 min Michael Carrillo HOUSE CALLS NURSE PRACTITIONER-IN STORE MARKETING ASSOCIATE Work Phone: [facility] Comment on above: Abnormal cardiac CT angiography (Primary Dx); Chest pain, unspecified type; Mixed hyperlipidemia; BMI 24.0-24.9, adult Start: 12-10-2024 End: 12-10-2024 ambulatory [facility] Start: 12-06-2024 End: 12-06-2024 Patient encounter procedure Shaikh Maude WEBBER Work Phone: [facility]-CT Scan [facility] [place] Work Phone: Start: 12-06-2024 End: 12-06-2024 ambulatory Shaikh Maude WEBBER Work Phone: [facility] Work Phone: Start: 12-03-2024 End: 12-03-2024 Bamboo flowsheet [facility] Work Phone: [facility] Start: 12-03-2024 End: 12-03-2024 Bamboo flowsheet Peter [facility] PA Work Phone: [facility] Start: 12-03-2024 End: 12-03-2024 Office outpatient new 30 minutes [facility] Work Phone: [facility] Comment on above: Capillary angioma (P rimary Dx); Seborrheic keratosis; Inflamed seborrheic keratosis; Actinic keratosis; Lentigo simplex Start: 12-03-2024 End: 12-03-2024 ambulatory PETER NORTHEIM Not Available Start: 11-22-2024 End: 11-22-2024 ambulatory Shaikh Maude WEBBER Work Phone: [facility] Work Phone: Start: 11-22-2024 End: 11-22-2024 Patient encounter procedure Shaikh Maude WEBBER Work Phone: [facility] Work Phone: Start: 11-06-2024 End: 11-06-2024 Admission to same day surgery center Shaikh Maude WEBBER Work Phone: [facility] [place] Start: 11-06-2024 End: 11-06-2024 ambulatory Shaikh Maude EWBBER Work Phone: [facility] Work Phone: Start: 11-05-2024 Non-patient / Non-visit Shaikh Maude WEBBER Work Phone: [facility] Physician [facility] Orthoped[facility] Work Phone: Start: 10-30-2024 End: 10-30-2024 ambulatory Shaikh Maude WEBBER Work Phone: [facility] Work Phone: Start: 10-30-2024 End: 10-30-2024 Patient encounter procedure Shaikh Maude WEBBER Work Phone: [facility] Physician [facility] Orthopedics Work Phone: Start: 10-30-2024 End: 10-30-2024 Patient encounter procedure Shaikh Maude WEBBER Work Phone: [facility] Start: 10-30-2024 End: 10-30-2024 ambulatory Shaikh Maude WEBBER Work Phone: [facility] Work Phone: Start: 10-24-2024 End: 10-24-2024 ambulatory Shaikh Maude WEBBER Work Phone: [facility] Work Phone: Start: 10-24-2024 End: 10-24-2024 Patient encounter procedure Shaikh Maude WEBBER Work Phone: [facility] Physician [facility] Orthopedics Work Phone: Start: 10-24-2024 End: 10-24-2024 Patient encounter procedure Shaikh Maude WEBBER Work Phone: [facility] Work Phone: Start: 10-24-2024 End: 10-24-2024 ambulatory Shaikh Maude WEBBER Work Phone: [facility] Work Phone: Start: 10-17-2024 End: 10-17-2024 Office consultation new/estab patient 40 min Marii Hurst MD Work Phone: [facility] Comment on above: Chest pain, unspecif ied type (Primary Dx) Start: 10-17-2024 End: 10-17-2024 ambulatory MARII Egan [facility] Start: 10-16-2024 End: 10-16-2024 Telephone encounter April Del Real MA [facility] Physician s Cardiology Start: 10-10-2024 End: 10-10-2024 Chart abstracting Marii Hurst MD Work Phone: [facility] Start: 10-01-2024 End: 10-01-2024 ambulatory Shaikh Maude WEBBER Work Phone: [facility] Work Phone: Start: 10-01-2024 End: 10-01-2024 Patient encounter procedure Shaikh Maude WEBBER Work Phone: [facility] Physician [facility] Work Phone: Start: 09-14-2024 End: 09-14-2024 ambulatory [facility] Work Phone: Start: 09-14-2024 End: 09-14-2024 Patient encounter procedure [facility] Physician [facility] Work Phone: Start: 09-06-2024 End: 09-06-2024 Bamboo flowsheet Billy Finch MD Work Phone: [facility] Start: 09-06-2024 End: 09-06-2024 Bamboo flowsheet Billy Finch MD Work Phone: [facility] Start: 09-06-2024 End: 09-06-2024 Office outpatient new 30 minutes Billy Finch MD Work Phone: [facility] Comment on above: Tonsillar tag Start: 09-06-2024 End: 09-06-2024 ambulatory BILLY FINCH Not Available Start: 09-05-2024 End: 09-05-2024 Orders Only Tristian Bearden HEALTH CARE CONSULTANT Work Phone: [facility] Comment on above: Coronary artery calc ification seen on CAT scan (CMS/HCC) Start: 08-29-2024 End: 08-29-2024 Bamboo flowsheet Tristian Bearden HEALTH CARE CONSULTANT Work Phone: [facility] Start: 08-29-2024 End: 08-29-2024 Bamboo flowsheet Tristian Bearden HEALTH CARE CONSULTANT Work Phone: [facility] Start: 08-29-2024 End: 08-29-2024 Office outpatient visit 15 minutes Tristian Gomezzpatrick HEALTH CARE CONSULTANT Work Phone: [facility] Comment on above: 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); Anxiety Start: 08-29-2024 End: 08-29-2024 ambulatory TRISTIAN FISHERTRICK Not Available Start: 08-26-2024 End: 08-26-2024 Subsequent hospital visit by physician Gabrielle Yun [facility] Comment on above: Hyperlipidemia, unsp ecified; Family history of ischemic heart disease and other diseases of the circulatory system; Elevated blood-pressure reading, without diagnosis of hypertension Start: 08-26-2024 End: 08-26-2024 ambulatory [facility] Start: 08-22-2024 End: 08-22-2024 Refill Dede Dixon MA [facility] Comment on above: Hyperlipidemia, unsp ecified hyperlipidemia type (CMS/HCC) Start: 06-18-2024 End: 06-18-2024 Bamboo flowsheet Tristian Bearden HEALTH CARE CONSULTANT Work Phone: [facility] Start: 06-18-2024 End: 06-18-2024 Bamboo flowsheet Tristian Bearden HEALTH CARE CONSULTANT Work Phone: [facility] Start: 06-18-2024 End: 06-18-2024 Office outpatient visit 15 minutes Tristian Bearden HEALTH CARE CONSULTANT Work Phone: [facility] Comment on above: Hyperlipidemia, unsp ecified hyperlipidemia type (CMS/HCC) (Primary Dx); Family history of CHF (congestive heart failure); Family history of abdominal aortic aneurysm (AAA); Family history of heart disease Start: 06-18-2024 End: 06-18-2024 ambulatory TRISTIAN BEARDEN Not Available Start: 01-30-2024 End: 01-30-2024 ambulatory MD Shaikh Santoro Work Phone: [facility] Work Phone: Start: 01-30-2024 End: 01-30-2024 Patient encounter procedure MD Shaikh Santoro Work Phone: [facility] Work Phone: Start: 01-29-2024 Non-patient / Non-visit MD Rubio Santoro Work Phone: [facility] Work Phone: Start: 01-26-2024 Non-patient / Non-visit MD Rubio Santoro Work Phone: [facility] Work Phone: Start: 01-26-2024 End: 01-26-2024 Admission to same day surgery center MD Shaikh Santoro Work Phone: [facility]-Digestive Health Work Phone: Start: 01-26-2024 End: 01-26-2024 ambulatory MD Shaikh Santoro Work Phone: [facility] Work Phone: Start: 12-06-2023 End: 12-06-2023 ambulatory PHYSICIAN NO [facility] Work Phone: Start: 12-06-2023 End: 12-06-2023 Patient encounter procedure PHYSICIAN NO [facility] Work Phone: Start: 11-08-2023 End: 11-08-2023 ambulatory PHYSICIAN NO [facility] Work Phone: Start: 11-08-2023 End: 11-08-2023 Patient encounter procedure PHYSICIAN NO [facility] [place] [facility] Work Phone: Start: 10-23-2023 End: 10-23-2023 Admission to same day surgery center PHYSICIAN NO [facility] [place] Start: 10-23-2023 End: 10-23-2023 ambulatory PHYSICIAN NO [facility] Work Phone: Start: 10-23-2023 Non-patient / Non-visit PHYSICIAN NO [facility] Work Phone: Start: 10-13-2023 Registered Recurring PHYSICIAN NO [facility] Ctr-Physical Therapy [facility] Start: 10-13-2023 End: 10-13-2023 ambulatory PHYSICIAN NO [facility] Work Phone: Start: 10-13-2023 End: 10-13-2023 Patient encounter procedure PHYSICIAN NO [facility] Work Phone: Start: 10-10-2023 End: 10-10-2023 Patient encounter procedure PHYSICIAN NO [facility] Work Phone: Start: 10-03-2023 End: 01-03-2025 Preoperative state Tristian Lynnk HEALTH CARE CONSULTANT Work Phone: [facility] Start: 09-26-2023 End: 09-26-2023 Patient encounter procedure PHYSICIAN NO FAMILY [facility] [place] Work Phone: Start: 08-23-2023 End: 08-23-2023 ambulatory Luis Brandt II Other [facility] Other Start: 08-23-2023 Office outpatient vi sit 40 minutes Luis Ada II [facility] [place] [facility] Start: 08-08-2023 Patient encounter procedure Tristian Bearden HEALTH CARE CONSULTANT Work Phone: [facility] Start: 07-13-2023 End: 07-13-2023 ambulatory Luis Ada II Other [facility] Other Start: 07-13-2023 Office outpatient vi sit 25 minutes Luis Ada II [facility] Start: 07-10-2023 End: 07-10-2023 ambulatory Luis Ada II Other [facility] Other Start: 07-10-2023 Telephone encounter Luis Ada II [facility] Start: 05-12-2023 End: 05-12-2023 ambulatory MD Luis Carlton II Work Phone: [facility] Work Phone: Start: 05-12-2023 End: 05-12-2023 Patient encounter procedure MD Luis Carlton II Work Phone: [facility] [place] [facility] Start: 10-27-2022 End: 10-28-2022 ambulatory SHAIKH Trnio SANTORO Facility:[facility] Start: 04-05-2022 End: 04-06-2022 ambulatory SHAIKH Trino SANTORO Facility:[facility] Procedures Date Procedure Procedure Detail Performing Clinician Start: 01-24-2025 CT LUNG SCREENING LOW DOSE Rogelio Coleman MD Work Phone: Start: 12-18-2024 Shaikh Rhett reid MD Work Phone: Start: 12-18-2024 CL [facility] COR Angio Henrry Santoro MD Work Phone: Start: 12-06-2024 CT angiography of co ronary arteries Shaikh Maude WEBBER Work Phone: Start: 12-03-2024 End: 12-03-2024 CRYOTHERAPY SKIN LESION Petre Lakhani Work Phone: Start: 11-06-2024 Decompression of med paris nerve Shaikh Maude WEBBER Work Phone: Start: 10-30-2024 Plain X-ray of left hip Shaikh Maude WEBBER Work Phone: Start: 10-01-2024 Plain X-ray of bilat eral wrists Shaikh Maude WEBBER Work Phone: Start: 01-26-2024 End: 01-26-2024 Colonoscopy MD Shaikh Santoro Work Phone: Start: 01-16-2024 Colonoscopy Tristian smith HEALTH CARE CONSULTANT Work Phone: Start: 12-06-2023 Plain X-ray of left hip PHYSICIAN NO FAMILY Start: 11-29-2023 Mammography Tristian smith HEALTH CARE CONSULTANT Work Phone: Start: 10-23-2023 Plain X-ray of left hip PHYSICIAN NO FAMILY Start: 10-23-2023 Total replacement of left hip joint PHYSICIAN NO FAMILY Start: 10-23-2023 Plain X-ray of left hip PHYSICIAN NO FAMILY Start: 09-26-2023 Methicillin resistan t Staphylococcus aureus culture PHYSICIAN NO FAMILY Start: 05-12-2023 Plain X-ray of left hip MD Luis Carlton II Work Phone: Start: 05-12-2023 Radiologic examinati on of knee MD Luis Carlton II Work Phone: Plan of Treatment Date Care Activity Detail Author Start: 01-25-2034 Screening for malign ant neoplasm of colon [facility] Start: 01-25-2027 Screening for malign ant neoplasm of colon [facility] Start: 01-15-2027 Screening for malign ant neoplasm of colon [facility] Start: 12-03-2025 End: 12-03-2025 Patient encounter procedure 12/03/2025 11:00 AM EDT Office Visit [facility] [address] [place] [address] Peter Ibrahim PA [address] [place] [address] [facility] Start: 12-01-2025 Screening for malign ant neoplasm of breast Mammogram [facility] Comment on above: Postponed from 11/28 (Other Medical Reasons) Start: 10-17-2025 Adult BMI Screening Adult BMI Screen [facility] Start: 06-21-2025 Screening for malign ant neoplasm of colon FIT-DNA [facility] Start: 04-08-2025 End: 04-08-2025 Patient encounter procedure 04/08/2025 9:00 AM EDT Office Visit [facility] [address] [place] [address] Rogelio Coleman MD [address] [place] [address] [facility] Start: 03-31-2025 Influenza vaccination Influenz a Vaccine (Season Ended) [facility] Start: 01-27-2025 Influenza vaccination Influenza Vacc ine (#1) [facility] Comment on above: Postponed from 03/31 (Patient Refused) Start: 01-03-2025 End: 01-03-2026 CT Chest for screening WO contrast CT lung screening low dose Imaging Routine Former smoker Expected: 01/03/2025, Expires: 01/03/2026 [facility] Work Phone: Comment on above: Expected: 01/03/2025 , Expires: 01/03/2026 Start: 01-03-2025 End: 01-03-2025 Patient encounter procedure 01/03/2025 10:30 AM EDT Office Visit [facility] [address] [place] [address] Rogelio Coleman MD [address] [place] [address] Arrived [facility] Comment on above: Arrived Start: 12-25-2024 End: 12-25-2024 Patient encounter procedure 12/25/2024 9:00 AM EDT Office Visit [facility] [address] [place] [id number] Michael Carrillo, HOUSE CALLS NURSE PRACTITIONER-IN STORE MARKETING ASSOCIATE [address] [facility] [address] [place] [address] [facility] Start: 12-19-2024 End: 12-19-2024 Patient encounter procedure 12/19/2024 9:00 AM EDT Office Visit [facility] [address] [place] [address] Tristian Bearden NP [address] [place] [address] [facility] Start: 12-18-2024 [facility] Start: 12-16-2024 Catheterization of l eft heart CL *Left Heart Cath (LHC) (Left) [facility] Start: 12-13-2024 Medicare Annual Well ness (AWV) Medicare Annual Wellness (AWV) [facility] Start: 12-03-2024 End: 12-03-2024 Patient encounter procedure 12/03/2024 11:00 AM EDT Office Visit [facility] [address] [place] [address] Peter Ibrahim PA [address] [place] [phone] Arrived [facility] Comment on above: Arrived Start: 11-28-2024 Screening for malign ant neoplasm of breast Mammogram [facility] Start: 11-06-2024 [facility] Start: 11-06-2024 [facility] Start: 10-30-2024 Plain X-ray of left hip XR hip LT min 2V(w/wo pelvis)* [facility] Start: 10-30-2024 XR Hip - left 2 Views [facility] Start: 10-17-2024 End: 10-17-2025 CTA Heart and Coronary arteries WO and W contrast IV CT angiogram coronary arteries with or without scoring Imaging Routine Chest Pain, Unspecified Type Expected: 10/17/2024, Expires: 10/17/2025 [facility] Comment on above: Expected: 10/17/2024 , Expires: 10/17/2025 Start: 10-17-2024 End: 10-17-2024 Patient encounter procedure 10/17/2024 11:00 AM EDT Office Visit [facility] [address] [place] [phone] Marii Hurst MD [address] [place] [phone] [facility] Start: 10-07-2024 End: 10-07-2024 Patient encounter procedure 10/07/2024 8:00 AM EDT [facility] [address] [place] [address] Tristian Bearden NP [address] [place] [address] [facility] Start: 10-01-2024 Plain X-ray of bilat eral wrists XR wrist min BI 3V [facility] Start: 10-01-2024 XR Wrist - bilateral GE 3 Views [facility] Start: 09-06-2024 End: 09-06-2024 Patient encounter procedure [facility] Comment on above: 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 Start: 08-29-2024 End: 08-29-2024 Patient encounter procedure 08/29/2024 8:30 AM EST Office Visit [facility] [address] [place] [phone] Tristian Bearden, JONI [address] [place] [phone] [facility] Comment on above: Arrived Start: 08-08-2024 Pneumococcal Vaccine : 65+ Years (1 of 2 - PCV) Pneumococcal Vaccine: 65+ Years (1 of 2 - PCV) [facility] Comment on above: Postponed from 01/28 (Patient Refused) Start: 06-18-2024 End: 06-18-2024 Patient encounter procedure 06/18/2024 8:30 AM EST [facility] [address] [place] [phone] Tristian Bearden, JONI [address] [place] [phone] Arrived [facility] Comment on above: Arrived Start: 03-31-2024 COVID-19 Vaccine ( season) COVID-19 Vaccine ( season) [facility] Start: 03-31-2024 Influenza vaccination N [facility] Start: 01-26-2024 [facility] Start: 12-06-2023 Plain X-ray of left hip XR hip LT min 2V(w/wo pelvis)* [facility] Start: 12-06-2023 XR Hip - left 2 Views F [facility] Start: 10-23-2023 End: 10-23-2023 [facility] Start: 2022 Fall Risk Screening Fall Risk Screen [facility] Start: 2017 RSV High Risk: (Elde rly (60+) or Population) (1 - Risk 60-74 years 1-dose series) RSV High Risk: (Elderly (60+) or Population) (1 - Risk 60-74 years 1-dose series) [facility] Start: 2007 Administration of varicella zoster vaccine Zoster (Shingles) Vaccine (1 of 2) [facility] Start: 2007 Zoster Vaccines (1 of 2) Zoster Vacc tangela (1 of 2) [facility] Start: 1997 Screening for malign ant neoplasm of breast Mammogram [facility] Start: 1979 DTaP/Tdap/Td Vaccine s (1 - Tdap) DTaP/Tdap/Td Vaccines (1 - Tdap) [facility] Start: 01-29-1976 DTaP,Tdap and Td Vac cines (1 - Tdap) DTaP,Tdap and Td Vaccines (1 - Tdap) [facility] Start: 01-29-1976 Pneumococcal vaccination Pneum ococcal Vaccine (1 of 2 - PCV) [facility] Start: 01-29-1976 Pneumococcal Vaccine : 65+ Years (1 of 2 - PCV) Pneumococcal Vaccine: 65+ Years (1 of 2 - PCV) [facility] Start: 1975 Adult BMI Screening Adult BMI Screen ing [facility] Start: 1975 Diabetes mellitus screening Diabetes Screening [facility] Start: 1975 Hepatitis C screening Hepatitis C Sc reening [facility] Start: 1969 Depression Screening Depression Scre ening [facility] Start: 1969 Tobacco Screening Tobacco Screening [facility] Start: 1963 Pneumococcal Vaccine : 65+ Years (1 of 2 - PCV) Pneumococcal Vaccine: 65+ Years (1 of 2 - PCV) [facility] Start: 1957 Lipid panel Lipid Panel [facility] Start: 1957 Medicare Annual Well ness Visit Medicare Annual Wellness Visit (AWV) [facility] Start: 1957 Screening for malign ant neoplasm of colon [facility] Start: 1957 Screening for malign ant neoplasm of lung Lung Cancer Screening Shared Decision Making [facility] Start: 1957 Screening for osteoporosis Bone Density Scan [facility] Cardiac Catheterizat ion - Onbase Scan Cardiac Catheterization - Onbase Scan Cardiac Cath Routine Abnormal cardiac CT angiography Chest pain, unspecified type Ordered: 12/10/2024 [facility] Work Phone: Comment on above: Ordered: 12/10/2024 End: 10-17-2025 Creatinine includes GFR, serum Creatinine includes GFR, serum Lab Routine Chest pain, unspecified type 1 Occurrences starting 10/17/2024 until 10/17/2025 [employer] Comment on above: 1 Occurrences starti ng 10/17/2024 until 10/17/2025 End: 08-26-2024 CT for calcium scoring WO contrast and CTA W contrast IV Heart and coronary arteries [facility] Work Phone: Comment on above: Once for 1 Occurrenc es starting 08/26/2024 until 08/26/2024 ECG 12 Lead ECG 12 Lead ECG Routine Abnormal cardiac CT angiography 12/10/2024 1:00 PM EDT [facility] Work Phone: ECG, Hospital Report Scan ECG, H ospital Report Scan ECG Routine Chest Pain, Unspecified Type Ordered: 10/17/2024 [facility] Work Phone: Comment on above: Ordered: 10/17/2024 Patient Education [facility] Work Phone: Patient referral [facility] Work Phone: Immunizations Immunization Date Immunization Notes Care Provider Sophia hawk 03-07-2021 COVID-19 mRNA Comirnina (Pfizer) PHYSICIAN NO [facility] 02-14-2021 COVID-19 Hasmukh Osuna (Pfizer) PHYSICIAN NO [facility] Payers Date Payer Category Payer Self-pay 2024 Medicare HMO [id number] 2023 Medicare (Managed Care) 1.2. [id number] 2023 Private Health Insurance [id number] 2023 Private Health Insurance [id number] 1959 Medicare [id number] 1955 Unknown [id number] 2.16.84 0.1.720099.3.579.2.593 1957 Unknown [id number] 2.16.84 0.1.608661.3.579.2.593 1957 Unknown [id number] 2.16.8 40.1.707054.3.579.2.1246 1957 Unknown [id number] 2.16. 840.1.721698.3.579.2.1286 1957 Unknown [id number] 2.16.8 40.1.676337.3.579.2.718 1957 Unknown [id number] 2.16. 840.1.626699.3.579.2.1244 1957 Unknown [id number] 2.16.8 40.1.782866.3.579.2.1259 1957 Unknown [id number] 2.16.84 0.1.997626.3.579.2.1259 1957 Unknown [id number] 2.16.84 0.1.817400.3.579.2.1259 1957 Unknown [id number] 2.16.84 0.1.431012.3.579.2.1259 1957 Unknown [id number] 2.16.84 0.1.846858.3.579.2.1259 Medicare Medicare [id number] Unknown [id number] 2.16.8 40.1.544360.3.579.2.531 Unknown [id number] 2.16.8 40.1.907489.3.579.2.531 Unknown [id number] 2.16.8 40.1.746843.3.579.2.531 Unknown [id number] 2.16.8 40.1.428679.3.579.2.531 Unknown [id number] 2.16.8 40.1.334639.3.579.2.531 Unknown [id number] 2.16.8 40.1.613906.3.579.2.531 Unknown [id number] 2.16.8 40.1.601210.3.579.2.531 Unknown [id number] 2.16.8 40.1.820036.3.579.2.531 Social History Date Type Detail Facility Tobacco smoking stat [facility] Unknown if ever smoked [facility] Work Phone: Start: 1955 Sex Assigned At Female F [facility] Start: 10-03-2023 End: 06-11-2024 Sex Assigned At [facility] Start: 10-10-2023 End: 12-12-2024 Tobacco smoking status [facility] Ex-smoker (finding) [facility] Start: 03-20-2003 End: 03-20-2018 History of tobacco use Current smoker [facility] Start: 03-20-2003 End: 03-20-2018 History of tobacco use Cigarette Smoker [facility] Start: 12-14-2023 End: 06-11-2024 Cigarettes smoked current (pack per day) - Reported 1 [facility] History of tobacco use Passive smoker [facility] Start: 12-14-2023 End: 09-06-2024 Tobacco use and exposure Smokeless tobacco non-user [facility] Start: 12-27-2023 End: 01-03-2025 Alcoholic beverage intake Current drinker of alcohol (finding) [facility] How often do you nee d to have someone help you when you read instructions, pamphlets, or other written material from your doctor or pharmacy [SILS] Never [facility] Do you belong to any clubs or organizations such as sikhism groups, unions, fraternal or athletic groups, or [...] To some extent [facility] (I/We) worried wheth er (my/our) food would run out before (I/we) got money to buy more. Never true [facility] In the past 12 month s, was there a time when you were not able to pay the mortgage or rent on time? No [facility] Start: 09-21-2023 Alcohol Comment OCCASSIONAL [facility] Start: 1955 Sex assigned at Not on file [facility] Tobacco smoking stat [facility] Tobacco smoking consumption unknown [facility] Work Phone: Start: 08-16-2024 End: 08-26-2024 Exposure to SARS-CoV-2 (event) Unable to assess [facility] Start: 09-14-2024 End: 12-07-2024 Sex Female (finding) [facility] Start: 11-30-2024 End: 12-10-2024 Exposure to SARS-CoV-2 (event) Not sure [facility] NEGATED: Highlighted row [facility] Medical Equipment Procedure Code Equipment Code Equipment Origin al Text Equipment Identifier Dates Arthroplasty, hip, total, anterior approach Acetabular shell [id number] FDA Start: 10-23-2023 Arthroplasty, hip, total, anterior approach Ceramic femoral head prosthesis [id number] FDA Start: 10-23-2023 Arthroplasty, hip, total, anterior approach Coated hip femur prosthesis, modular [id number] FDA Start: 10-23-2023 Arthroplasty, hip, total, anterior approach Non-constrained polyethylene acetabular liner [id number] [facility] Start: 10-23-2023 Goals Date Patient Goal Desired Activity /State Clinical Notes 07-10-2023 to 01-03-2025 Rogelio Coleman MD - 01/03/2025 11:12 AM Erika Coleman MD - 01/03/2025 11:11 AM Erika Coleman MD - 01/03/2025 11:11 AM Erika Coleman MD - 01/03/2025 10:30 AM EDTPatient Instructions Note Date & Type Note Facility 01-03-2025 History of Present illness Narrative Associated Problem(s): Centrilobular emphysema (CMS/HCC) No SOB and monitor. Associated Problem(s): Former smoker Repeat LDCT chest. Associated Problem(s): Hyperlipidemia (CMS/HCC) Lipids controlled with medication and continue. Images from the original note were not included. Subjective Patient ID: Nadya Rodriguez is a 69 y.o. female who presents for Follow-up (6m ). Follow up dyslipidemia. Patient stable today. Had abnormal calcium scoring of coronary arteries and seen by cardiology. CTA showed stenosis but heart cath normal and 0% blockage. Feels well and no chest tightness. On lipitor for high cholesterol and recent labs normal. Former smoker and quit in 2017 and prior 40 pack year history. Due for repeat LDCT chest. Review of Systems Respiratory: Negative for cough, shortness of breath and wheezing. Cardiovascular: Negative for chest pain and palpitations. Gastrointestinal: Negative for abdominal pain, diarrhea, nausea and vomiting. Genitourinary: Negative for dysuria. Objective Physical Exam Constitutional: General: She is not in acute distress. Appearance: Normal appearance. HENT: Head: Normocephalic. Right Ear: Tympanic membrane normal. Left Ear: Tympanic membrane normal. Eyes: Extraocular Movements: Extraocular movements intact. Pupils: Pupils are equal, round, and reactive to light. Cardiovascular: Rate and Rhythm: Normal rate and regular rhythm. Heart sounds: No murmur heard. No friction rub. No gallop. Pulmonary: Effort: Pulmonary effort is normal. Breath sounds: Normal breath sounds. No wheezing, rhonchi or rales. Abdominal: General: Bowel sounds are normal. There is no distension. Palpations: Abdomen is soft. Tenderness: There is no abdominal tenderness. There is no guarding or rebound. Musculoskeletal: Cervical back: Neck supple. Right lower leg: No edema. Left lower leg: No edema. Neurological: Mental Status: She is alert. Assessment/Plan Problem List Items Addressed This Visit Hyperlipidemia (CMS/[facility]) - Primary Lipids controlled with medication and continue. Former smoker Repeat LDCT chest. Relevant Orders CT lung screening low dose documented in this encounter [facility] 12-10-2024 Evaluation + Plan note Associated Problem(s): Mixed hyperlipidemia High intensity statin [facility] Work Phone: 12-10-2024 Evaluation + Plan note Associated Problem(s): Chest pain, unspecified Reports episodes of chest tightness for a number of years. Has noted some mild progression of dyspnea on exertion. [facility] Work Phone: 12-10-2024 Miscellaneous Notes Associated Problem(s): Mixed hyperlipidemia High intensity statin Associated Problem(s): Chest pain, unspecified Reports episodes of chest tightness for a number of years. Has noted some mild progression of dyspnea on exertion. Associated Problem(s): Abnormal cardiac CT angiography December 06, 2024 cardiac CTA LAD: Moderate-severe stenosis of the proximal to mid LAD due to calcified plaque RCA: Mild stenosis of the proximal to mid RCA EF 58% Addended by: MICHAEL CARRILLO on: 12/10/2024 04:25 PM Modules accepted: Orders documented in this encounter [facility] Work Phone: 12-10-2024 Evaluation + Plan note Associated Problem(s): Abnormal cardiac CT angiography December 06, 2024 cardiac CTA LAD: Moderate-severe stenosis of the proximal to mid LAD due to calcified plaque RCA: Mild stenosis of the proximal to mid RCA EF 58% [facility] Work Phone: 12-10-2024 History of Present illness Narrative Referred by PCP for abnormal cCTA. History Of Present Illness: Nadya Rodriguez is a 69 y.o. female presenting with recent cardiac CTA revealing moderate-severe stenosis of the proximal to mid LAD with calcified plaque, mild stenosis of the proximal to mid RCA. 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 Her mother approximately 1 year ago due to coronary artery disease, atrial fibrillation and congestive heart failure. Approximately 6 months later her from cancer. Patient reports that she became significantly concerned regarding her mother's history and was seen by her PCP provider in July 2024 and a calcium score was high . She was then evaluated by Dr. Gracia of [facility] cardiology and underwent a cardiac CTA on December 06, 2024. She reports her insurance would not cover Dr. Gracia to complete cardiac cath and she was subsequently referred over to [facility] for management. To the office today for daily activity includes stairs on a daily basis, housework, yard work and landscaping. She reports a chest tightness that really has been somewhat sporadic for years, at times she notices she is dyspneic with exertion but is able to push my way through it . She denies any change in exercise capacity or functional tolerance. In the office today she is extremely anxious and concerned regarding this dyspnea on exertion and chest tightness., wants to get a handle on things before it is too late . Reviewed in detail the cardiac CTA -discussed sensitivity/specificity. For more clear delineation of coronary anatomy discussed cardiac catheterization. Due to abnormal cardiac CTA, the risks, benefits and procedure of cardiac catheterization plus or minus coronary intervention were discussed including but not limited to 1:1000 myocardial infarction, stroke, urgent coronary artery bypass graft and rare recorded : 1:100 vascular complications and contrast-induced acute renal failure. The patient is in agreement to proceed. Patient presents with no IVP allergies. Patient has no contraindication to antiplatelet therapy, no planned surgical procedures in the near future. Last renal function has been reviewed (cr 0.8). Agrees to begin baby aspirin. Nitro sublingual education provided. Cardiovascular risk profile: No hypertension Treated hyperlipidemia No diabetes [id number] history tobacco abuse, quit 8 years ago Negative family history premature coronary artery disease in primary relatives ECG in office: PRWP across anterior leads Past Medical History: She has no past medical history on file. Past Surgical History: She has a past surgical history that includes section, classic; Inner ear surgery; Back surgery; Hip surgery (Bilateral); and Colonoscopy. Social History: She reports that she has quit smoking. Her smoking use included cigarettes. She has never used smokeless tobacco. She reports current alcohol use of about 10.0 standard drinks of alcohol per week. She reports that she does not use drugs. Family History: Family History[1] Allergies: Patient has no known allergies. Outpatient Medications: Current Outpatient Medications Medication Instructions aspirin 81 mg, oral, Daily calcium carbonate-vitamin D3 600 mg-10 mcg (400 unit) capsule Calcium Carbonate-Vitamin D3 Active 1 CAP PO Daily October 10, 2023 12:00am cholecalciferol (VITAMIN D3) 25 mcg, Daily magnesium oxide (MAG-OX) 400 mg, Daily RT naproxen (NAPROSYN) 500 mg, As needed nitroglycerin (NITROSTAT) 0.4 mg, sublingual, Every 5 min PRN, May repeat dose every 5 minutes for up to 3 doses total. rosuvastatin (CRESTOR) 20 mg, Daily before breakfast Review of Systems Cardiovascular: Negative for chest pain, dyspnea on exertion, irregular heartbeat, leg swelling, near-syncope, orthopnea, palpitations, paroxysmal nocturnal dyspnea and syncope. Visit Vitals BP 100/60 (BP Location: Left arm, Patient Position: Sitting) Pulse 86 Ht 1.6 m (5' 3 ) Wt 63 kg (139 lb) BMI 24.62 kg/m Smoking Status Former BSA 1.67 m Physical Exam Vitals and nursing note reviewed. HENT: Head: Normocephalic. Cardiovascular: Rate and Rhythm: Normal rate and regular rhythm. Heart sounds: Normal heart sounds. Pulmonary: Effort: Pulmonary effort is normal. Breath sounds: Normal breath sounds. Abdominal: Palpations: Abdomen is soft. Musculoskeletal: Right lower leg: No edema. Left lower leg: No edema. Skin: General: Skin is warm and dry. Neurological: General: No focal deficit present. Mental Status: She is alert. Psychiatric: Mood and Affect: Mood normal. Behavior: Behavior normal. ALLERGIES: Patient has no known allergies. Current Outpatient Medications Medication Instructions aspirin 81 mg, oral, Daily calcium carbonate-vitamin D3 600 mg-10 mcg (400 unit) capsule Calcium Carbonate-Vitamin D3 Active 1 CAP PO Daily October 10, 2023 12:00am cholecalciferol (VITAMIN D3) 25 mcg, Daily magnesium oxide (MAG-OX) 400 mg, Daily RT naproxen (NAPROSYN) 500 mg, As needed nitroglycerin (NITROSTAT) 0.4 mg, sublingual, Every 5 min PRN, May repeat dose every 5 minutes for up to 3 doses total. rosuvastatin (CRESTOR) 20 mg, Daily before breakfast Assessment: Abnormal cardiac CT angiography December 06, 2024 cardiac CTA LAD: Moderate-severe stenosis of the proximal to mid LAD due to calcified plaque RCA: Mild stenosis of the proximal to mid RCA EF 58% Chest pain, unspecified Reports episodes of chest tightness for a number of years. Has noted some mild progression of dyspnea on exertion. Mixed hyperlipidemia High intensity statin Plan: Through informed decision making process incorporating patients unique circumstances, the following treatment plan will be initiated: 1. Prescription drug management of cardiovascular medication for efficacy, adherence to treatment, side effect assessment and polypharmacy. Current treatment clinically warranted and to continue with following modifications: - Begin ASA 81mg daily 2. Cardiac cath with Dr. Olivarez (abnormal cardiac CTA with prox/mid LAD moderate-severe stenosis) 3. Return for follow-up; in the interim, contact the office if new symptoms arise. HEALTH CARE CONSULTANT after testing Michael Carrillo MSN, HOUSE CALLS NURSE PRACTITIONER-IN STORE MARKETING ASSOCIATE, PMHNP-[facility] [place], [place] Please excuse any errors in grammar or translation related to this dictation. Voice recognition software was utilized to prepare this document. [1] Family History Problem Relation Name Age of Onset Hyperlipidemia Mother Atrial fibrillation Mother Heart failure Mother Hypertension Mother COPD Mother Hyperlipidemia Father Hypertension Father Aneurysm Father COPD Father Hypertension Brother Hyperlipidemia Brother documented in this encounter [facility] Work Phone: 12-10-2024 Instructions THOMAS Gibson - 12/10/2024 1:00 PM EDT Please bring all medicines, vitamins, and herbal supplements with you when you come to the office. Prescriptions will not be filled unless you are compliant with your follow up appointments or have a follow up appointment scheduled as per instruction of your physician. Refills should be requested at the time of your visit. PLAN: Through informed decision making process incorporating patients unique circumstances, the following treatment plan will be initiated: 1. Prescription drug management of cardiovascular medication for efficacy, adherence to treatment, side effect assessment and polypharmacy. Current treatment clinically warranted and to continue with following modifications: - Begin ASA 81mg daily 2. Cardiac cath with Dr. Olivarez (abnormal cardiac CTA with prox/mid LAD moderate-severe stenosis) 3. Return for follow-up; in the interim, contact the office if new symptoms arise. HEALTH CARE CONSULTANT after testing documented in this encounter [facility] Work Phone: 12-10-2024 Note Addended by: MICHAEL CARRILLO on: 12/10/2024 04:25 PM Modules accepted: Orders [facility] Work Phone: 12-08-2024 Radiology Diagnostic study note [facility] Main [place] [address] [place] [address] CT Scan Report Signed with Koby Patient: Nadya Rodriguez MR#: [id number] : 1955 Acct:[id number] Age/Sex: 69 / F ADM Date: 5 Loc: CT Room: Type: [facility] Attending Dr: Marii Hurst MD Copies to: Marii Hurst MD~ Ordering Provider: Marii Hurst MD Date of Service: 12/06/24 CT/CT heart angio w/score: R07.9 ADDENDUM 1 EXTRACARDIAC STRUCTURES: No evidence of mediastinal or hilar lymphadenopathy. No pericardial effusion. Visualized lungs demonstrate no acute process. No lung nodule is seen. Limited images of the upper abdomen demonstrate no acute findings. Addendum Dictated By: Aidan Mckenna II, MD Addendum Signed By: 12/08/241209 Addendum Cosigned By: DD/ /24/1210 TD/TT: 12/08/2406/24/[address]/CT heart angio w/score IMPRESSION: No significant extracardiac CT findings. Impression dictated by: Aidan Mckenna M.D. 12/08/2024 12:10 PM Dictation Location: [facility] Addendum Dictated By: Aidan Mckenna II, MD Addendum Signed By: 12/08/241209 Addendum Cosigned By: DD/ /24/1210 TD/TT: 12/08/2406/24/1210 CLINICAL INDICATION: Patient Age: 69 years Patient Gender: Female Indication: Evaluation of coronary arteries for atherosclerosis or coronary anomalies TECHNIQUE: Image Acquisition: A 9SLIDESa View 128 was used for data acquisition. Bolus tracking in the descending aorta with a threshold of 150 HU media was performed. Immediately afterwards, ECG synchronized Cardiac CT was then performed from cardiac base to apex using Trigger Method: retrospective gating with ECG tube current modulation. A total of 80 mL of Omnipaque 350 mgl/mL contrast media was administered at 5 mL/sec followed by a saline flush using a biphasic injection protocol. Tube voltage 100 kVp. Heart rate was controlled with metoprolol, as needed. Coronary vasodilation was facilitated with sublingual nitroglycerin. The average heart rate at the time of acquisition was 76 bpm and mildly irregular due to PVC. Image Reconstruction: Transaxial images were reconstructed at 0.63 mm slice thickness. Data was reviewed interactively on an advanced workstation capable of 2 and 3 dimensionaldisplays in all conventional reconstruction formats including multiplanar reformations, maximum intensity projections, curved multiplanar reformations, and volume rendered reconstructions. Selected routine images displaying relevantcoronary anatomy and pathology were saved and sent to PACS. Complications: None Technical Quality: Overall image quality is Good. Coronary artery opacification is Excellent. Misregistration artifact in the inferior scan field due to PVC. Total DLP (Dose-Length Product): 1199 mGy.cm). (16.7 mSv). Please note: The reported value represents the total of one or more individual components during the CT acquisition on this date and at this time, and as such, the same value may appear in more than one CT report depending on the interpreting/reporting physicians. FINDINGS: -CT Coronary Calcium Scoring- LMA= 0 LAD= 471 LCX= 0 RCA= 277 Severe coronary calcification with a Coronary artery calcium (Agatston) score = 748 using the AJ-130 method. This score is in the 97th percentile rank for age and gender. Other Calcification: No other significant intracardiac calcification. -Coronary CT Angiography- Coronary Arteries: The coronaries have normal origin and proximal course. Note: Stenosis is reported as maximum percentage diameter stenosis. Stenosis grading is reported using the following scheme. Quantitative Stenosis Grading: CAD-RADS 0: 0% - No visible stenosis CAD-RADS 1: 1-24% - Minimal stenosis CAD-RADS 2: 25-49% - Mild stenosis CAD-RADS 3: 50-69% - Moderate stenosis CAD-RADS 4A: 70-99% - Severe stenosis in 1-2 vessels CAD-RADS 4B: Left main >50%, or 3 vessel >70% CAD-RADS 5: 100% - Occluded Left Main: CAD-RADS 0: The left main bifurcates into the left anterior descending artery and left circumflex artery. The left main has no visible stenosis. LAD: CAD-RADS 3. The LAD courses along the anterior interventricular grove as itgives off diagonal arteries. Moderate-severe stenosis of the proximal to mid LADdue to calcified plaque. Stenosis may be overestimated due to blooming artifact from heavy calcification. LCx and Obtuse Marginals: CAD-RADS 1. The left circumflex courses along the left AV groove as it gives off obtuse marginal arteries. No significant stenosis of the left circumflex artery with noncalcified luminal irregularities. RCA: CAD-RADS 2. The right coronary artery originates from the right cusp and courses along the right AV groove as it gives off acute marginal arteries. Distally provides the right PDA. Mild stenosis of the proximal to mid RCA due tofocal areas of calcified plaque. The distal RCA is not well-visualized due to misregistration artifact. The coronary arterial system is rig (more content not included)... [facility] Work Phone: 12-03-2024 History of Present illness Narrative Skin Check Location: Patient requests a full body skin examination Dermatologic history: no history of skin cancer, no history of atypical moles, no family history of melanoma New patient All pertinent medical history, medications, and allergies were reviewed. General Exam: alert, oriented to person, place, and time, normal affect, well appearing Unaccompanied Areas not examined despite medical recommendation: Scalp, Examined , exam limited by hair Right leg Examined Head, Face Examined Left leg Examined Neck Examined Right foot Examined Chest Examined Left foot Examined Back Examined Buttocks Examined Abdomen Examined Digits,nails: Examined Right arm Examined Patient wearing nail congolese, Denies dark streaks on toenails Left arm Examined Lymphatics: Not examined Hands Examined Skin Exam 1. SEBORRHEIC KERATOSIS Generalized Stuck on verrucous, martinez-brown papules and plaques. Patient was counseled regarding these benign growths. Removal is normally not necessary, but they may be removed if they are symptomatic or for cosmetic reasons. 2. INFLAMED SEBORRHEIC KERATOSIS (7) Left Knee - Anterior, Left Popliteal Fossa (4), Right Zygomatic Area (2) [place] and brown stuck on verrucous scaly papule with surrounding erythema The patient was informed that symptomatic seborrheic keratoses are benign growths that become inflamed, itchy, tender, traumatized, caught on clothing, or bleed. Symptomatic lesions can be treated with cryotherapy or curretage. Thicker lesions treated with cryotherapy may require more than one treatment. The patient was instructed to notify the office if abnormal redness or tenderness develops at the treatment site. Cryotherapy today, see procedure note. Diagnosis: Inflamed seborrheic keratosis Indication: Inflamed Consent: Verbal consent was obtained and risks were discussed, including, but not limited to risks of scarring, darker or soccer referee pigmentary changes, recurrence, incomplete removal and infection. Method: Liquid nitrogen was used to treat the lesion(s) with two 5-10 second freeze-thaw cycles Number of lesions treated: 7 Post-procedure instructions: Instructions were given orally and in writing. The office will be contacted if the lesion fails to resolve despite treatment, or if a side effect develops such as abnormal crusting, scabbing, redness or tenderness Cryotherapy, skin lesion - Right Zygomatic Area (2) 3. ACTINIC KERATOSIS Mid Frontal Scalp Erythematous scaly papules Patient was counseled regarding these sun-induced growths that can develop into squamous cell carcinoma if left untreated. Discussed treatment with cryotherapy. It was emphasized that any treated lesions that fail to resolve should be re-evaluated. Cryotherapy performed today; see procedure note Diagnosis: Actinic keratosis Indication: Precancerous Location: see skin exam Consent: Verbal consent was obtained and risks were discussed, including, but not limited to risks of scarring, darker or soccer referee pigmentary changes, recurrence, incomplete removal and infection. Method: Liquid nitrogen was used to treat the lesion(s) with two 5-10 second freeze-thaw cycles. Eyes were shielded using cotton pad during procedure Number of lesions treated: 1 Post-procedure instructions: Instructions were given orally and in writing. The office will be contacted if the lesion fails to resolve despite treatment, or if a side effect develops such as abnormal crusting, scabbing, redness or tenderness Cryotherapy, skin lesion - Mid Frontal Scalp 4. LENTIGO SIMPLEX Generalized Scattered martinez macules in sun-exposed areas. The patient was informed that lentigines are benign pigmented lesions that occur on sun-exposed and sun-damaged skin. No treatment is necessary. Recommended regular use of broad spectrum sunscreen SPF 30 or higher 5. CAPILLARY ANGIOMA Generalized Scattered joseph-red papule(s). The patient was informed that angiomas are benign growths on the the skin. No treatment is necessary. Next Visit: 1 year, skin check documented in this encounter [facility] 11-22-2024 Evaluation note Diagnosis Onset Date Resolution Encounter for removal of sutures acute November 22, 2024 8:56am Other specified postprocedural states acute October 8:56am Right carpal tunnel syndrome acute November 22, 2024 8:56am [facility] Work Phone: 1(627) 385-864103-20-2025 History of Present illness Narrative* Marii Hurst MD - 10/17/2024 11:00 AM EDT Nadya Johnson Hattie Date of visit: 10/17/2024 Date of : [...] tablet Take 500 mg by mouth 2 (two)times a day as needed for pain. rosuvastatin (CRESTOR) 20 mg tablet Take 1 tablet (20 mg total) by mouth in the morning. No current facility-administered medications for this visit. Chief Complaint Patient presents with New Patient Hyperlipidemia Chest Pain History of Present Illness Patient concerned because of family history and episodes of chest discomfort she has had this priorseveral years ago more of a heaviness year upper chest comes and goes can be related to stress physically it is not particularly reproducible no lightheadedness no syncope near syncope she has a history of a false- positive stress test prior she says Past Medical [...] Resource Strain: Low Risk (06/11/2024) Received from [facility] Overall Financial Resource Strain (CARDIA) Difficulty of Paying Living Expenses: Not very hard Food Insecurity: No Food Insecurity (10/17/2024) Hunger Screening Food Insecurity - Worry: Never True Food Insecurity - Inability: Never True Transportation Needs: No Transportation Needs (06/11/2024) Received from [facility] PRAPARE - Transportation Lack of Transportation (Medical): No Lack of Transportation (Non-Medical): No Physical Activity: Insufficiently Active (06/11/2024) Received from [facility] Exercise Vital Sign Days of Exercise per Week: 3 days Minutes of Exercise per Session: 20 min Stress: Stress Concern Present (06/11/2024) Received from [facility] [place] [employer] Occupational Health - Occupational Stress Questionnaire Feeling of Stress : To some extent Social Connections: Moderately Isolated (06/11/2024) Received from [facility] Social Connection and Isolation Panel [NHANES] Frequency of Communication with Friends and Family: More than three times a week Frequency of Social Gatherings with Friends and Family: More than three times a week Attends Sikhism Services: Never Active Member of Clubs or Organizations: Yes Attends Club or Organization Meetings: More than 4 times per year Marital Status: Interpersonal Safety: Not on file Housing Instability: Low Risk (06/11/2024) Received from [facility] Housing Stability Vital Sign Unable to Pay [...] discomfort with prior false-positive stress testing. Family historyof coronary disease Plan for CT angiogram of the coronaries to rule out any significant coronary disease TODAYS ORDERS No orders of the defined types were placed in this encounter. FOLLOW UP No follow-ups on file. PCP: ROGELIO COLEMAN MD Referring Physician: Tristian Bearden, HOUSE CALLS NURSE PRACTITIONER-IN [employer]ORE MARKETING ASSOCIATE [address] [place] [address] documented in [facility] encounter[facility] Miscellaneous Notes* Telephone Encounter - April Del Real MA - 10/16/2024 2:00 PM EDT Called patient to remind them to bring their most current copy of their medication list with them to their appt. Phone # has been disconnected or changed. JLW documented in this encounterUK [facility]03-19-2025 Telephone encounter Note* Telephone Encounter - April Del Real MA - 10/16/2024 2:00 PM EDT Called patient to remind them to bring their most current copy of their medication list with them to their appt. Phone # has been disconnected or changed. JLW [facility]03-04-2025 Evaluation note* Diagnosis Onset Date Resolution Status Admit Date Arthritis of carpometacarpal (CMC) joint of both thumbs acute October 01, 2024 10:20am Right carpal tunnel syndrome acute October 01, 2024 10:20am Arthritis of carpometacarpal (CMC) joint of both thumbs acute October 24, 2024 9:46am Right carpal tunnel syndrome acute October 24, 2024 9:46am Aftercare following left hip joint replacement surgery acute October 30, 2024 9:36am Presence of left artificial hip joint acute October 30, 2024 9:36am Encounter for removal of sutures acu te November 22, 2024 8:56am Other specified postprocedur al states acute November 22, 2024 8:56am Right carpal tunnel syndrome acute November 22, 2024 8:56am [facility] Work Phone: 1(772) 827-361102-15-2025 Evaluation note* Diagnosis Onset Date Resolution Status Admit Date Influenza A noneactive August 9:49am Arthritis of carpometacarpal (CMC) joint of both thumbs acute October 01, 2024 10:20am Right carpal tunnel syndrome acute October 01, 2024 10:20am [facility] Work Phone: 1(283) 571-735702-15-2025 Evaluation note* Diagnosis Onset Date Resolution Status Admit Date Influenza A noneactive August 9:49am Arthritis of carpometacarpal (CMC) joint of both thumbs acute October 01, 2024 10:20am Right carpal tunnel syndrome acute October 01, 2024 10:20am Arthritis of carpometacarpal (CMC) joint of both thumbs acute October 24, 2024 9:46am Right carpal tunnel syndrome acute October 24, 2024 9:46am [facility] Work Phone: 1([phone]) 884-318802-15-2025 Evaluation note* Diagnosis Onset Date Resolution Status Admit Date Influenza A noneactive August 9:49am Arthritis of carpometacarpal (CMC) joint of both thumbs acute October 01, 2024 10:20am Right carpal tunnel syndrome acute October 01, 2024 10:20am Arthritis of carpometacarpal (CMC) joint of both thumbs acute October 24, 2024 9:46am Right carpal tunnel syndrome acute October 24, 2024 9:46am Aftercare following left hip joint replacement surgery acute October 30, 2024 9:36am Presence of left artificial hip joint acute October 30, 2024 9:36am [facility] Work Phone: 1([phone]) 328-102302-07-2025 History of Present illness Narrative* Billy Finch MD - 09/06/2024 1:10 PM EST Subjective Patient ID: Nadya Rodriguez is a 69 y.o. female who presents [...] Mary Heart failure Mother Mary Hyperlipidemia Father Luis Hypertension Father Luis Hyperlipidemia Brother Luis Hypertension Brother Luis Active Ambulatory Problems Diagnosis Date Noted Medicare annual wellness visit, subsequent 08/08/2023 Hyperlipidemia ([facility]) 08/08/2023 Arthritis of left hip 08/08/2023 Arthritis of left knee 08/08/2023 Screening mammogram, encounter for 08/08/2023 Encounter for screening for lung cancer 08/08/2023 Osteoarthritis of hip 09/21/2023 Left sided colitis with rectal bleeding ([facility]) 09/21/2023 Pre-operative clearance 10/03/2023 Centrilobular emphysema ([facility]) 10/03/2023 S/P hip replacement, left 12/27/2023 Psychophysiological insomnia 12/27/2023 Hair thinning 12/27/2023 Stress and adjustment reaction ([facility]) 12/27/2023 Family history of heart disease 06/18/2024 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 * Tristian Bearden, HEALTH CARE CONSULTANT - 08/29/2024 8:30 AM EST Images from the original note were not included. Subjective Patient ID: Nadya Rodriguez is a 69 y.o. female who presents [...] (Atarax) 25 MG tablet documented in this encounterAudrain Medical [id number] History of Present illness Narrative* Tristian Bearden [...] were not included. Subjective Patient ID: Nadya Rodriguez is a 69 y.o. female who presents [...] R ALBUMIN GLOBULIN RATIO 1.3 Resulting Agency [facility] on all screenings. Will repeat labs/testing in [...] with information and order. documented in this encounterAudrain Medical [id number] Instructions* Patient Instructions* Tristian Bearden NP - [...] brand stick with it. documented in this encounterAudrain Medical [id number] [facility] note* Encounter Date Diagnosis Assessment Notes [...] pathological fracture (ICD-10 - M81.0) Jul, Other care home (current) drug therapy (ICD-10 - Z79.899) Jul, [...] or absent clearances could delay their surgery. [facility] Other 12-14-2023 Evaluation note* Encounter Date Diagnosis [...] both the hip and the knee being vzsm-bh-ptnn arthritis I still feel that the most [...] her back in 6 weeks for reevaluation. [facility] Other 12-11-2023 Evaluation note* Encounter Date Diagnosis Assessment Notes Treatment Notes Treatment Clinical Notes Jun, Left hip pain (ICD-10 - M25.552) [facility] Other Evaluation noteNo assessment information available [facility] Work Phone: Evaluation note* Diagnosis Onset Date Resolution Status Primary osteoarthritis of left hip acute [facility] Work Phone: Evaluation note* Diagnosis Onset Date Resolution Status Primary osteoarthritis of left hip acute Aftercare following left hip joint replacement surgery acute Presence of left artificial hip joint acute Aftercare following left hip joint replacement surgery acute Presence of left artificial hip joint acute [facility] Work Phone: Evaluation note* Diagnosis Onset Date Resolution Status Aftercare following left hip joint replacement surgery acute Presence of left artificial hip joint acute Aftercare following left hip joint replacement surgery acute Presence of left artificial hip joint acute [facility] Work Phone: Evaluation note* Diagnosis Medicare annual wellness visit, subsequent- Primary Other hyperlipidemia (CMS/HCC) RLS (restless legs syndrome) Restless legs syndrome (RLS) Screening mammogram, encounter for Encounter for screening for lung cancer Arthritis of left hip Routine general medical examination at health care facility Routine general medical examination at a [facility] Left sided colitis with rectal bleeding (CMS/HCC)- [...] left hip Routine general medical examination at [facility] Routine general medical examination at a [facility] Left sided colitis with rectal [...] diagnosis of hypertension documented in this encounter [facility] Work Phone: Evaluation note* Diagnosis Medicare annual wellness visit, subsequent- Primary Other hyperlipidemia (CMS/HCC) RLS (restless legs syndrome) Restless legs syndrome (RLS) Screening mammogram, encounter for Encounter for screening for lung cancer Arthritis of left hip Routine general medical examination at health care facility Routine general medical examination at a [facility] Left sided colitis with rectal [...] Anxiety state, unspecified documented in this encounter [facility] HealthcareEvaluation note* Diagnosis Medicare annual wellness visit, subsequent- Primary Other hyperlipidemia (CMS/HCC) RLS (restless legs syndrome) Restless legs syndrome (RLS) Screening mammogram, encounter for Encounter for screening for lung cancer Arthritis of left hip Routine general medical examination at health care facility Routine general medical examination at a [facility] Left sided colitis with rectal [...] CAT scan (CMS/HCC) documented in this encounter [facility] HealthcareEvaluation note* Diagnosis Medicare annual wellness visit, [...] tonsils and adenoids documented in this encounter [facility] HealthcareEvaluation note* Diagnosis Chest pain, unspecified type- Primary [facility] Diagnosis Medicare annual wellness visit, subsequent- Primary Other hyperlipidemia RLS (restless legs syndrome) Restless legs syndrome [...] oral cavity- Primary Anxiety Anxiety state, unspecified Capillary angioma- Primary Nevus, non-neoplastic Seborrheic keratosis Inflamed seborrheic keratosis Actinic keratosis Lentigo simplex Other dyschromia documented in this encounter [facility]* Diagnosis Abnormal cardiac CT angiography- Primary Chest pain, unspecified type Mixed hyperlipidemia BMI 24.0-24.9, adult documented in this encounter [facility] Work Phone: Evaluation note* Diagnosis Medicare annual wellness visit, subsequent- Primary Other hyperlipidemia RLS (restless legs syndrome) Restless legs syndrome (RLS) Screening mammogram, encounter for Encounter for screening for lung cancer Arthritis of left hip Routine general medical examination at health care facility Routine general medical examination at a health care facility Arthritis of left hip- Primary Centrilobular emphysema [...] aneurysm (AAA) Family history of heart disease Mixed hyperlipidemia (CMS/HCC)- Primary Mixed hyperlipidemia Former smoker Personal history of tobacco use, presenting hazards to health Centrilobular emphysema (CMS/HCC) documented in this encounter [facility] HealthcareHistory and physical note Author Nazario Blue [facility] January 26, 2024 10:00am Note Date/Time January 26, 2024 10:0 0am [facility] [address] [place] [address] Gastroenterology H&P Signed Patient: Nadya Rodriguez MR#: [id number] : 1955 Acct:[id number] Age/Sex: 68 / F Adm Date: 4 Loc: Room: Type: [facility] Attending Dr: Nazario Blue MD Copies to: [...] signed by Nazario Blue MD> 01/26/24 1000 [facility] Work Phone: History general Narrative - Reported* Type Description Date Medical History hypercholesterolemia Medical History emphysema-mild Surgical History C section x2 Surgical History tonsillectomy Surgical History RTHA Surgical History ear surgery [facility] Other Hospital Discharge instructions Additional Instructions Joint Replacement Discharge Instructions Your safety during your recovery process is important to us. Please seek immediate emergency care if you have sudden chest pain or shortness of breath. Additionally, please call our office at [phone] should any of the following occur: wound [...] to walk without your walker and your lpn care manager until the therapist checks you the following [...] and/or laxatives as directed. You may take dyet-qcv-zucirvn Benadryl if itching occurs without a rash or hives. Icing and elevation will help relieve pain as well, do not underestimate the power of ice and elevation. We do recommend that you stop taking narcotic pain medications by 4-6 weeks after surgery and if necessary, continue to use anti-inflammatory medications such as Mobic (meloxicam), Celebrex (celecoxib), or an etdv-ksh-gwssmzp medication (Aleve, Motrin, Ibuprofen, etc). Driving an [...] feel free to call our office at [phone]. You are a priority of ours and we will not be upset with you if you call. We would much rather you call to confirm aspects of your recovery process as opposed to possibly hindering your recovery with inappropriate care. We are committed to providing you with the best care possible. Luis Carlton II, MD Updated 08/21/23[facility] Work Phone: Hospital Discharge instructions Additional Instructions [...] stomach, liquids high in sugar content (soda, Duogie-Aid, non-acid juices) are recommended. - You can resume normal activities tomorrow. FOLLOW UP & RECOMMENDATIONS: -Notify the doctor if you have any problems. -Repeat colonoscopy in 3 years. -Follow up with PCP. -Office number [phone]. [facility] Work Phone: Hospital Discharge instructions Additional Instructions The following instructions must be followed very closely: 1. If you need pain pills, start before pain becomes intense. Antibiotics and pain pills are frequently less upsetting to your stomach if you take them with food such as crackers or bread. 2. If you are having excessive or persistent pain, swelling, bleeding, nausea, vomiting, or any other problems, you should first call your surgeon for advice. If you are unable to contact your surgeon, seek help from a hospital emergency room. If you were given drugs to make you drowsy and or pain medication, follow these instructions: 1. You should spend the remainder of the day and evening resting. 2. You should not attempt to walk, including going to the bathroom, without assistance. You may be lightheaded from the medications you received. 3. Eat light today to avoid nausea. You should be able to return to your normal diet 24 to 36 hours after surgery. 4. For the next 24 hours you should not consume alcohol, attempt to drive, use any power tools, sign important documents or make important personal or business decisions. After that do so only if you feel perfectly normal and alert. 5. Follow carefully any verbal or written instructions your surgeon may have given you. SURGEON'S INSTRUCTIONS 1. Elevate hand and arm to reduce pain and swelling for the next 48 hours. 2. Take pain medicine every 4 hours as needed to control pain. 3. Keep fingers moving. 4. Do not change your dressing. This will be done at your first office visit. 5. Keep the dressing clean and dry. 6. No heavy lifting until you see the surgeon in the office. 7. Call the office to arrange an appointment to be seen in one week. Office number: [phone] Work Phone: Hospital Discharge instructions Additional Instructions DISCHARGE INSTRUCTIONS FOR CARDIAC BOILERS AND PRESSURE VESSELS INSPECTOR PROCEDURE: Heart Cath The following instructions have been prepared to help you care for yourself, or be cared for upon your return home. 1. You were given conscious sedation. Do not operate a vehicle, power tools, make important decisions, or drink alcohol for 24 hours. You might be drowsy or light headed. Return to the Emergency Room if you have trouble breathing, walking or nausea and vomiting. 2. FOR BLEEDING: Apply continuous pressure to the site and call 911. 3. Operative Site Care: Keep the dressing clean and dry. You may change the dressing only if soiled or wet. You may remove the dressing the following morning. You may wash over the puncture site in the shower. If the puncture site is at the wrist no soaking for 3 days. Some bruising or slight swelling may be present. -Signs of infection are redness, warmth, swelling, getting more sore, colored drainage, fever or chills. -Should the arm or leg become cold, numb, blue or white, call the news broadcaster immediately. 4. ACTIVITY: You are advised to go directly home from the hospital. Restrict your activities for the rest of the day. Resume light or normal activities tomorrow. Do not engage in any activity that will stress the puncture site. Avoid heavy lifting (over 15 lbs.), straining or bending at the catheter site for 48 hours after discharge. If the puncture site is at the wrist do not manipulate wrist for 24 hours and no lifting more than 3 lbs for 3 days. 5. DIET:You may eat your regular diet when you desire. 6. MEDICATIONS: Resume your daily prescription schedule. Prescriptions may be sent with you if needed. Use as directed. When taking pain medications, you may experience dizziness or drowsiness. Do not drink alcohol or drive when taking pain medications. 7. If you should experience episodes of angina e.g. chest discomfort, heaviness, tightness, pressure, burning, with or without radiation to the neck, jaws, arms, or back- Use 1 Nitrostat under your tongue every 5-10 minutes, and up to 3 tablets. If no relief- Call 911 and go to the nearest Emergency Room. -Notify the office for recurrent angina, chest pain or other concerns. You may NOT drive yourself home! Follow the medication instructions provided on your discharge. If the dosages and instructions on this sheet differ from the dosage and instructions on the bottle, follow the instructions on the bottle. [facility] is not responsible for incorrect prescription information provided by the patient during their visit. Do not stop your medications without consulting your health care provider. Please take the list with you to your next doctor's appointment.[facility] Work Phone: InstructionsNot on filedocumented in this encounter [facility] [employer] SystemInstructionsNot on filedocumented in this encounter [facility] [employer] SystemInstructionsNot on filedocumented in this encounter [facility] ideaForge SystemReason for referral (narrative)No reason for referral information availableChillicothe [facility] Work Phone: Reason for visit Narrative* Imaging (Routine) - Pending Review Specialty Diagnoses / Procedures Referred By Becky t Referred To Contact Radiology Diagnoses Hyperlipidemia, unspecified Family history of ischemic heart disease and other diseases of the circulatory system Elevated blood-pressure reading, without diagnosis of hypertension Procedures CT cardiac scoring wo IV contrast Natalia Bearden, HOUSE CALLS NURSE PRACTITIONER-IN STORE MARKETING ASSOCIATE [address] [place] [address] Phone: tel: fax: Referral ID Status Reason Start Date Expiration Date Visits Requested Visits Authorized [id number] Pending Review Perform Procedure 4 06/18/2025 [address] [facility] Work Phone: Summary Purpose Family History No [...] carpal tunnel syndrome October 01, 2024 10:20am Chief Complaint Admit Date sore throat, chest congestion August 312024 9:49am NEW ARCHIE WRIST PAIN/NUMBNESS NX September 10:20am M25.531 - Pain in right wrist October 01, 2024 10:29am carpal tunnel October 24, 2024 8:0 4am H & P RIGHT CARPAL TUNNEL RELEASE 11-06-24 October 24, 2024 9:46am Reason for Visit Admit Date Influenza A September 14, 2024 9:49am Arthritis of carpometacarpal (CMC) joint of both thumbs October 01, 2024 10:20am Right carpal tunnel syndrome October 01, 2024 10:20am Arthritis of carpometacarpal (CMC) joint of both thumbs October 24, 2024 9:46am Right carpal tunnel syndrome October 24, 2024 9:46am Chief Complaint Admit Date sore throat, chest congestion August 312024 9:49am NEW ARCHIE WRIST PAIN/NUMBNESS NX September 10:20am M25.531 - Pain in right wrist October 01, 2024 10:29am carpal tunnel October 24, 2024 8:0 4am H & P RIGHT CARPAL TUNNEL RELEASE 11-06-24 October 24, 2024 9:46am Z96.642 - Presence of left artificial hi p joint October 30, 2024 8:14am 1 YEAR POST OP LT HIP October 30, 2024 9: 36am Reason for Visit Admit Date Influenza A September 14, 2024 9:49am Arthritis of carpometacarpal (CMC) joint of both thumbs October 01, 2024 10:20am Right carpal tunnel syndrome October 01, 2024 10:20am Arthritis of carpometacarpal (CMC) joint of both thumbs October 24, 2024 9:46am Right carpal tunnel syndrome October 24, 2024 9:46am Aftercare following left hip joint repla cement surgery October 30, 2024 9:36am Presence of left artificial hip joint Ap 2024 9:36am Chief Complaint Admit Date sore throat, chest congestion August 312024 9:49am NEW ARCHIE WRIST PAIN/NUMBNESS NX September 10:20am M25.531 - Pain in right wrist October 01, 2024 10:29am carpal tunnel October 24, 2024 8:0 4am H & P RIGHT CARPAL TUNNEL RELEASE 11-06-24 October 24, 2024 9:46am Z96.642 - Presence of left artificial hi p joint October 30, 2024 8:14am 1 YEAR POST OP LT HIP October 30, 2024 9: 36am carpal tunnel November 05, 2024 5:56 am carpal tunnel November 06, 2024 9:28 am Chief Complaint Admit Date sore throat, chest congestion August 312024 9:49am NEW ARCHIE WRIST PAIN/NUMBNESS NX September 10:20am M25.531 - Pain in right wrist October 01, 2024 10:29am carpal tunnel October 24, 2024 8:0 4am H & P RIGHT CARPAL TUNNEL RELEASE 11-06-24 October 24, 2024 9:46am Z96.642 - Presence of left artificial hi p joint October 30, 2024 8:14am 1 YEAR POST OP LT HIP October 30, 2024 9: 36am carpal tunnel November 05, 2024 5:56 am carpal tunnel November 06, 2024 9:28 am 2 weeks post op November 22, 2024 8:5 6am Chief Complaint Admit Date NEW ARCHIE WRIST PAIN/NUMBNESS NX September 10:20am M25.531 - Pain in right wrist October 01, 2024 10:29am carpal tunnel October 24, 2024 8:0 4am H & P RIGHT CARPAL TUNNEL RELEASE 11-06-24 October 24, 2024 9:46am Z96.642 - Presence of left artificial hi p joint October 30, 2024 8:14am 1 YEAR POST OP LT HIP October 30, 2024 9: 36am carpal tunnel November 05, 2024 5:56 am carpal tunnel November 06, 2024 9:28 am 2 weeks post op November 22, 2024 8:5 6am R07.9 December 06, 2024 8:55am Reason for Visit Admit Date Arthritis of carpometacarpal (CMC) joint of both thumbs October 01, 2024 10:20am Right carpal tunnel syndrome October 01, 2024 10:20am Arthritis of carpometacarpal (CMC) joint of both thumbs October 24, 2024 9:46am Right carpal tunnel syndrome October 24, 2024 9:46am Aftercare following left hip joint repla cement surgery October 30, 2024 9:36am Presence of left artificial hip joint Ap ril 2024 9:36am Encounter for removal of sutures October 302024 8:56am Other specified postprocedural states Ap ril 2024 8:56am Right carpal tunnel syndrome November 22, 2024 8:56am Chief Complaint Admit Date 2 weeks post op November 22, 2024 8:5 6am R07.9 December 06, 2024 8:55am Abnormal Cardiac CTA December 12, 2024 8:57 am Abnormal Cardiac CTA December 16, 2024 9:[address], Chest Pain November 12:10pm Reason for Visit Admit Date Encounter for removal of sutures October 302024 8:56am Other specified postprocedural states Ap ril 2024 8:56am Right carpal tunnel syndrome November 22, 2024 8:56am Additional Source Comments INFORMATION SOURCE (unrecogn ized section and content) DATE CREATED AUTHOR 11/24/2022 [facility] DATE CREATED AUTHOR AUTHOR'S ORGANIZ ATION 09/02/[address] [facility] DATE CREATED AUTHOR AUTHOR'S ORGANIZ ATION 10/19/2024 [facility] DATE CREATED AUTHOR AUTHOR'S ORGANIZ ATION 10/23/2024 [facility] DATE CREATED AUTHOR AUTHOR'S ORGANIZ ATION 12/17/2024 [facility] DATE CREATED AUTHOR AUTHOR'S ORGANIZ ATION 01/04/2025 [facility] EPIC DATE CREATED AUTHOR AUTHOR'S ORGANIZ ATION 02/17/2025 [facility] Care Teams (unrecognized sec tion and content) Team Status: Active Member Role Status Dates Rogelio Coleman MD Primary Care Provider Active Team Status: Inactive Member Role Status Dates Shaikh Maude MD Primary Care Provider Active Start: September 14, 2024 End: September 14, 2024 Perla Rivera APRN Attending Provider Active Start: September 14, 2024 End: September 14, 2024 Team Status: Inactive Member Role Status Dates Shaikh Maude MD Primary Care Provider Active Start: October 01, 2024 End: October 01, 2024 Marii Rios MD Attending Provider Active Star t: October 01, 2024 End: October 01, 2024 Team Status: Inactive Member Role Status Dates Marii Rios MD Attending Provider Active Star t: October 01, 2024 End: October 01, 2024 Shaikh Maude MD Primary Care Provider Active Start: October 01, 2024 End: October 01, 2024 Team Status: Active Member Role Status Dates Marii Rios MD Attending Provider Active Star t: October 24, 2024 Rogelio Coleman MD Primary Care Provider Active S tart: October 24, 2024 Team Status: Inactive Member Role Status Dates Marii Rios MD Attending Provider Active Star t: October 24, 2024 End: October 24, 2024 Rogelio Coleman MD Primary Care Provider Active S tart: October 24, 2024 End: October 24, 2024 Team Status: Active Member Role Status [...] Status: Inactive Member Role Status Dates Luis Carlotn II, MD Attending Provider Active Start: October [...] Team Status: Inactive Member Role Status So Sanotro MD Primary Care Provider Active Start: January 30, 2024 End: January 30, 2024 Luis Carlton II, MD Attending Provider Active Start: January 30, 2024 End: January 30, 2024 Barn Hand Relationship Specialty Start Date End Date Rogelio Coleman MD [address] [place] [address] PCP - General Family Medicine 06/18/24 Tristian Bearden NP [address] [address] Nurse Practitioner Family Medicine 05/15/24 Barn Hand Relationship Specialty Start Date End Date Rogelio Coleman MD [address] [place] [phone] PCP - General Family Medicine 06/18/24 Tristian Bearden NP [address] [place] [address] Nurse Practitioner Family Medicine 05/15/24 Barn Hand Relationship Specialty Start Date End Date Rogelio Coleman MD [address] [place] [phone] PCP - General Family Medicine 06/18/24 Tristian Bearden NP [address] [place] [address] Nurse Practitioner Family Medicine 05/15/24 Barn Hand Relationship Specialty Start Date End Date Rogelio Coleman MD [address] [place] [id number] PCP - General Family Medicine 06/18/24 Tristian Bearden NP [address] [place] [address] Nurse Practitioner Family Medicine 05/15/24 Barn Hand Relationship Specialty Start Date End Date Rogelio Coleman MD [address] [place] [address] PCP - General Family Medicine 06/18/24 Tristian Bearden NP [address] [place] [address] Nurse Practitioner Family Medicine 05/15/24 Barn Hand Relationship Specialty Start Date End Date Rogelio Coleman MD [address] [place] [phone] PCP - General Family Medicine 06/18/24 Tristian Bearden NP [address] [place] [address] Nurse Practitioner [facility] Medicine 05/15/24 Barn Hand Relationship Specialty Start Date End Date Rogelio Coleman MD [address] [place] [address] PCP - General Family Medicine 06/18/24 Tristian Bearden NP [address] [place] [phone] Nurse Practitioner Family Medicine 05/15/24 Team Status: Active Member Role Status Dates Marii Rios MD Attending Provider Active Star t: October 01, 2024 Shaikh Maude MD Primary Care Provider Active Start: October 01, 2024 Barn Hand Relationship Specialty Start Date End Date Rogelio Coleman MD [address] [place] [address] PCP - General Family Medicine 10/17/24 Team Status: Active Member Role Status Dates Rogelio Coleman MD Primary Care Provider Active S tart: October 30, 2024 Luis Carlton II, MD Attending Provider Active Start: October 30, 2024 Team Status: Inactive Member Role Status Dates Luis Carlton II, MD Attending Provider Active Start: October 30, 2024 End: October 30, 2024 Rogelio Coleman MD Primary Care Provider Active S tart: October 30, 2024 End: October 30, 2024 Team Status: Inactive Member Role Status Dates Rogelio Coleman MD Primary Care Provider Active S tart: October 30, 2024 End: October 30, 2024 Luis Carlton II, MD Attending Provider Active Start: October 30, 2024 End: October 30, 2024 Team Status: Active Member Role Status Dates Marii Rios MD Attending Provider, Other Provider A ctive Start: November 05, 2024 Rogelio Coleman MD Primary Care Provider Active S tart: November 05, 2024 Team Status: Inactive Member Role Status Dates Marii Rios MD Attending Provider Active Star t: November 06, 2024 End: November 06, 2024 Rogelio Coleman MD Primary Care Provider Active S tart: November 06, 2024 End: November 06, 2024 Team Status: Inactive Member Role Status Dates Shaikh Maude MD Primary Care Provider Active Start: November 22, 2024 End: November 22, 2024 Marii Rios MD Attending Provider Active Star t: November 22, 2024 End: November 22, 2024 Barn Hand Relationship Specialty Start Date End Date Rogelio Coleman MD [address] [place] [phone] PCP - General Family Medicine 06/18/24 Tristian Bearden NP Nurse Practitioner Family Medicine 05/15/24 Barn Hand Relationship Specialty Start Date End Date Rogelio Coleman MD [address] [place] [phone] PCP - General Family Medicine 06/18/24 Tristian Bearden NP Nurse Practitioner Family Medicine 05/15/24 Barn Hand Relationship Specialty Start Date End Date Rogelio Coleman MD [address] [place] [phone] PCP - General Family Medicine 12/10/24 Team Status: Inactive Member Role Status Dates Rogelio Coleman MD Primary Care Provider Active S tart: December 06, 2024 End: December 06, 2024 Marii Hurst MD Attending Provider Active S tart: December 06, 2024 End: December 06, 2024 Barn Hand Relationship Specialty Start Date End Date Rogelio Coleman MD [address] [phone] PCP - General Family Medicine 06/18/24 Tristian Bearden NP Nurse Practitioner Family Medicine 05/15/24 Barn Hand Relationship Specialty Start Date End Date Rogelio Coleman MD [address] [place] [phone] PCP - General Family Medicine 06/18/24 Tristian Bearden NP Nurse Practitioner Family Medicine 05/15/24 Barn Hand Relationship Specialty Start Date End Date Rogelio Coleman MD [address] [place] [phone] PCP - General Family Medicine 06/18/24 Tristian Bearden NP Nurse Practitioner Family Medicine 05/15/24 Team Status: Inactive Member Role Status Dates Rogelio Coleman MD Primary Care Provider Active S tart: December 12, 2024 End: December 12, 2024 Remy Olivarez DO Attending Provider Active S tart: December 12, 2024 End: December 12, 2024 Team Status: Inactive Member Role Status Dates Rogelio Coleman MD Primary Care Provider Active S tart: December 16, 2024 End: December 16, 2024 W Evans Olivarez DO Attending Provider Active S tart: December 16, 2024 End: December 16, 2024 Team Status: Inactive Member Role Status Dates Rogelio Coleman MD Primary Care Provider Active S tart: December 18, 2024 End: December 18, 2024 Remy Olivarez DO Attending Provider Active S tart: December 18, 2024 End: December 18, 2024 Goals (unrecognized section and content) Goals may [...] this encounterNot on filedocumented as of this encounterGoals may be documented in an alternate sectionGoals [...] of uncertain behavior of oral cavity Procedures NM OFFICE/OUTPATIENT NEW HIGH MDM 60 MINUTES Tristian Bearden NP [address] [place] [address] Phone: tel: fax: Billy Finch MD [address] [facility] [address] [place] [address] Phone: tel: fax: Referral ID Status Reason Start Date Expiration Date V isits Requested Visits Authorized [id number] Closed Specialty Services Required 08/29/2024 02/25/2025 1 1 Reason Comments New Patient Hyperlipidemia Chest Pain Specialty Diagnoses / Procedures Referred By Contac t Referred To Contact Cardiology Diagnoses Coronary artery calcification seen on CAT scan Procedures NM OFFICE OUTPATIENT VISIT 60-74 MINS HIGH MDM [id number] (SNOMED CT) - AMB REFERRAL TO CARDIOLOGY Aliya Beardentanfina Nagel, HOUSE CALLS NURSE PRACTITIONER-IN STORE MARKETING ASSOCIATE [address] [facility] [place] [address] Phone: tel: fax: Marii Hurst MD [address] [place] [facility] [place] [address] Phone: tel: fax: Referral ID Status Reason Start Date Expiration Date V isits Requested Visits Authorized [id number] Pending Review 09/05/2024 03/04/2025 1 1 Reason Comments Skin Check Reason Comments New Patient Visit Consult [facility] had ct coronary Specialty Diagnoses / Procedures Referred By Contsteven t Referred To Contact Diagnoses Abnormal cardiac CT angiography Procedures ECG 12 Lead Michael Carrillo, HOUSE CALLS NURSE PRACTITIONER-IN STORE MARKETING ASSOCIATE [address] [facility] [address] [place] [address] Phone: tel: fax: Referral ID Status Reason Start Date Expiration Date V isits Requested Visits Authorized [id number] Authorized 12/10/2024 12/10/2025 1 1 Reason Comments Follow-up 6m FOR RECORDS PERTAINING TO PATIENTS WHO ARE [...] BE BASED ON THE PRIMARY CLINICAL RECORDS. [employer] provides no warranty or guarantee of the accuracy or completeness of information in this document.
--- NOTE | 2025-03-12 08:50 | MM_ITS ---
Patient Name: NURY RODRIGUEZ MR#: [id number] : 1955 Exam Date: 03/12/2025 Ordering Doctor: DR ASHVIN COLEMAN . RADIOLOGY REPORT PROCEDURE: MM TOMOSYNTHESIS SCREENING BI COMPARISON: MM TOMOSYNTHESIS SCREENING BI, 11/29/2023. MG MAMM SCREEN 3D ARCHIE CAD, 10/27/2022. INDICATIONS: Screening Calculator Name NCI Breast Cancer Risk Assessment Tool 5 Year Breast Cancer Risk 1.40% Lifetime Breast Cancer Risk 4.40% Personal Breast Cancer No Personal Ovarian Cancer No Treatments None Family Cancers None LOCATION: [facility] BREAST COMPOSITION: There are scattered areas of fibroglandular density. FINDINGS: RIGHT BREAST: No significant suspicious finding. LEFT BREAST: No significant suspicious finding. DIAGNOSTIC CATEGORY 1--NEGATIVE. RECOMMENDATIONS: ROUTINE MAMMOGRAM AND CLINICAL EVALUATION IN 12 MONTHS. PLEASE NOTE: A NORMAL MAMMOGRAM DOES NOT EXCLUDE THE POSSIBILITY OF BREAST CANCER. A CLINICALLY SUSPICIOUS PALPABLE LUMP SHOULD BE BIOPSIED. Dictated by: Juan Antonio Roberts MD on 03/12/2025 at 14:14 Approved by: Juan Antonio Roberts MD on 03/12/2025 at 14:19
== END 2025-03-12 08:45 | disposition home or self-care (01) ==
LOC: MAMMO 08:44
PROVIDERS: PCP Family Medicine; Visit Provider Family Medicine
DX: Z12.31 Encounter for screening mammogram for malignant neoplasm of breast (principal)
CPT/HCPCS: 77063; 77067

== ENCOUNTER 2025-06-22 07:34 | Emergency (ER) | payer MEDICARE, SELFPAY ==
--- OUTSIDE RECORDS SUMMARY | 2024-09-12 07:55 | XMS_ITS ---
Author Organization [facility] Billing Info Address [address] [place] [address] Care Team Providers Care Physician Pediatrician Name Role Phone Tanner Sandhu Primary Care Provider MEHUL Erickson Unavailable [phone] KEV MORENO Unavailable [phone] REASON FOR VISIT SURGERY INDICATION Encounters Encounter Location Date Provider Diagnosis [id number] NA BATISTA MD [address] [facility] [address] [place], [place] [id number] 09/12/2024 KEV MORENO Plan Of Treatment No Information Progress Notes * Nadya KUHN LDOB: [birth year] (69 yo F)Acc No.[id number]:09/12/2024 Patient:?Nadya KUHN :1955???Age:69 Y???Sex:FemalePhone: Fswhjcr:[address] [place], [place] [address]e , [place], [address]--> * true * Date:?Generated for Printing/Faxing/eTransmitting on:?06/22/2025 07:50 AM EST
[2025-06-22] VITALS (26 sets, daily range): BP systolic 85–133; BP diastolic 52–90; PULSE 78; TEMP 36.4; O2SAT 89–99; BMI 23.9
--- OUTSIDE RECORDS SUMMARY | 2025-06-22 07:48 | XMS_ITS | CCD ---
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 Operator Name Role Phone FAWWAD, OLSEN H Admitting Unavailable FAWWAD, OLSEN H Attending Unavailable FAWWAD, OLSEN H Primary Care Unavailable DR HOLLIE LOVING V Consulting Unavailable FAWWAD, OLSEN H Consulting Unavailable FAWWAD, OLSEN H Admitting Unavailable FAWWAD, OLSEN H Attending Unavailable FAWWAD, OLSEN H Consulting Unavailable MD Luis Carlton II Attending Provider [phone] Luis Carlton II Unavailable NO FAMILY, PHYSICIAN Primary Care Provider Unava ilable MD Luis Carlton II Attending Provider MD Stefan Santoro Primary Care Provider MD Luis Carlton II Attending Provider MD Stefan Santoro Primary Care Provider [phone] MD Luis Carlton II Attending Provider [phone] MD Stefan Santoro Primary Care Provider MD Nazario Blue Attending Provider Tristian Bearden NP Unavailable Rogelio Coleman MD Primary Care Provider Unavailable Primary Care Provider UnavailNATALIA Caballero Referring Unav ailable Marii Rios MD Attending Provider [phone] Shaikh Santoro MD Primary Care Provider Marii Rios MD Attending Provider Fawwad MD, Olsen Primary Care Provider Unavailable Primary Care Provider Unavailnathan Coleman MD, Rogelio Primary Care Provider MARII HURST Attending Unavailable TRISTIAN BEARDEN Referring Unavaila ble ROGELIO COLEMAN Primary Care Unavailable ROGELIO COLEMAN A Primary Care Unavailable Marii Hurst Attending Unavailable Marii Hurst Admitting Unavailable Rogelio Coleman MD Primary Care Provider [phone] Luis Carlton MD Attending Provider Monisha ANIMATION CAMERA OPERATOR, Tristian Unavailable [phone] Papa WEBBER, Rogelio Tin Primary Care Provider Marii Hurst MD Attending Provider MICHAEL CARRILLO Attending Unavailable ROGELIO COLEMAN [facility] Care Unavailabl e TRISTIAN BEARDEN Attending Unavailabl e BILLY FINCH Attending Unavailable TRISTIAN BEARDEN Referring Unavailabl e PETER IBRAHIM Attending Unavailable ROGELIO COLEMAN Attending Unavailable TRISTIAN BEARDEN Attending UnavailShaikh Valencia MD Primary Care Provider Marii Rios MD Attending Provider Papa WEBBER, Rogelio Primary Care Provider Remy Olivarez DO Attending Provider Luis Carlton II Admitting Unavailabl Luis Alvarado [...] Care Unavailable Shaikh Santoro Primary Care Unavailable GabrielMarii Admitting Unavailable Gabriel, Marii Attending Unavailable Rogelio Coleman Primary Care Unavailable Marii Rios Admitting Unavailable Marii Rios Attending Unavailable Rogelio Coleman MD Primary Care Provider Atul Yun ALATORRE Attending Provider Shaikh Santoro MD Primary Care Provider Shaikh Santoro MD Primary Care Provider Unallocated Maira WEBBER Provider Primary Care Provi ulysses Rogelio Coleman MD Primary Care Provider Shaikh Santoro MD Unavailable Allergies Allergy ClassificationReported Allergen(s)Allergy TypeDate of OnsetReaction(s) Facility (1 source)ALLERGIES NOT ON FILE; Translations: [ALLERGIES NOT ON FILE]Propensity to adverse reactions (disorder)[facility] (2 sources)PenicillinsPropensity to adverse reactions to qsen91-66-8999[facility] (2 sources)Sulfonamides (Antibiotic)Propensity to adverse reactions to drug 92-49-9176[facility]vUavjoqHol[facility] Medications Current Medications MedicationDrug Class(es)DatesSig (Normalized)Sig (Original)atorvastatin 20 mg oral tablet (3 sources)HMG-CoA Reductase InhibitorAtorvastatin Calcium 20 MG Oral for 90 Days Activecalcium carbonate 1500 mg / cholecalciferol 0.01 mg oral capsule (20 sources)Vitamin DStart: 00-12-9823kdhc 1 capsule by mouth once dailyCalcium Carbonate-Vitamin D3 600 mg-10 mcg (400 unit) capsule Active 1 CAP PO Daily October 10, 2023 12:00am Complies with drug therapyStart: 96-13-7808wpuuemw carbonate-vitamin D3 600 mg-10 mcg (400 unit) capsule Calcium Carbonate-Vitamin D3 Active 1CAP PO Daily October 10, 2023 12:00am 05/12/2023 ActiveStart: 97-87-4966yeri 1 tablet by mouth every twelve hoursCalcium-Vitamin D 600-3.125 MG-MCG 1 tablet Orally Twice a day for 30 day(s) Apr, Active cholecalciferol 0.025 mg oral tablet (1 source)Vitamin Dtake 1 tablet by mouth once dailycholecalciferol (Vitamin D3) 25 mcg (1,000 units) tablet Take 1 tablet (25 mcg) by mouth once daily. Active magnesium oxide 400 mg oral tablet (4 sources)Start: 78-94-8573ytfs 1 tablet by mouth once dailyMagnesium Oxide 400 mg magnesium tablet Active 400 MG PO Daily December 18, 2024 12:00am Complies with drug therapytake 1 tablet by mouth once dailymagnesium oxide (Mag-Ox) 400 mg (241.3 mg elemental) tablet Take 1 tablet (400 mg) by mouth once daily. Active meloxicam 15 mg oral tablet (3 sources)Nonsteroidal Anti-inflammatory DrugStart: 23-82-0351kcwx 1 tablet by mouth every twenty-four hoursMeloxicam 15 MG 1 tablet Orally Once a day for 30 days Apr, Activemetoprolol tartrate 50 mg oral tablet (1 source)beta-Adrenergic BlockerStart: 21-77-7113ymfaajyptc tartrate (LOPRESSOR) 50 mg tablet Take 1 tablet (50 mg) [address] and 1 tablet (50 mg) [address] 2 tablet 10/17/2024 ActiveStart: 10-17-2024 metoprolol tartrate (LOPRESSOR) 50 mg tablet Take 1 tablet (50 mg) [address] and 1 tablet (50 mg) [address] 2 tablet 10/17/2024 Active naproxen 500 mg oral tablet (20 sources)Nonsteroidal Anti-inflammatory DrugStart: 10-10-2023 End: 30-59-0456mkwu 1 tablet by mouth twice daily as needed for painNaproxen 500 mg tablet Active 500 MG PO Twice daily as needed for pain 60 April 29, 2025 11:46am FreeTextSig: TAKE 1 TABLET BY MOUTH 2 TIMES PER DAY NEEDED FOR PAIN Oral; Note: Source Status: Taking; Refills: 0; Qty: 180 Each; Provider: MAUDE OLSEN Complies with drug therapynaproxen (EC NAPROSYN) 375 MG tablet,delayed release (DR/EC) EC tablet Take 500 mg by mouth 2 (two)times a day as needed for pain. Activetake 1 tablet by mouth twice daily as needed for pain Naproxen 500 MG TAKE 1 TABLET BY MOUTH 2 TIMES PER DAY NEEDED FOR PAIN Oral for 90 Days Activenitroglycerin 0.4 mg sublingual tablet (3 sources)Nitrate VasodilatorStart: 12-10-2024 End: 27-79-3885Xakhdgysqrlzj 0.4 mg tablet, sublingual Active 0.4 MG SUBLINGUAL Q5M as needed for chest pain December 18, 2024 12:00am Complies with drug therapy rosuvastatin calcium 20 mg oral tablet (20 sources)HMG-CoA Reductase InhibitorStart: 10-10-2023 End: 37-17-9255vift 1 tablet by mouth in the morningrosuvastatin (Crestor) 20 MG tablet Indications: Hyperlipidemia, unspecified hyperlipidemia type Take 1 tablet (20 mg) by mouth in the morning. 90 tablet 1 02/17/2025 ActivetraZODone hydrochloride 50 mg oral tablet (3 sources)Serotonin Reuptake InhibitorStart: 01-22-2024 End: 33-52-1591kixh 1 tablet by mouth at bedtimetraZODone (Desyrel) 50 MG tablet Indications: Psychophysiological insomnia Take 1 tablet (50 mg) bymouth at bedtime 90 tablet 1 01/22/2024 06/18/2024 Discontinued (Med list cleanup) Completed/Discontinued Medications MedicationDrug Class(es)DatesSig (Normalized)Sig (Original)acetaminophen 500 mg oral tablet (20 sources)Start: 10-13-2023 End: 79-80-6201djnp 2 tablets by mouth every eight hoursAcetaminophen 500 mg tablet Discontinued 1000 MG PO Q8H 180 October 13, 2023 12:00am December 06, 2023 11:18am DO NOT RECONCILE UNTIL DOS:10/23/2023 MED TO BEDStart: 10-13-2023 End: 02-05-9440bhvi 1000 mg by mouth every eight hoursAcetaminophen Discontinued 1000 MG PO Q8H 180 October 13, 2023 12:00am December 06, 2023 11:18am DO NOT RECONCILE UNTIL DOS:10/23/2023 MED TO BEDacetaminophen 325 mg / HYDROcodone bitartrate 5 mg oral tablet (5 sources)Opioid AgonistStart: 11-05-2024 End: 89-44-4859pgkt 1 tablet by mouth every four to six hours as needed for pain Hydrocodone-Acetaminophen 5-325 mg tablet Discontinued 1 TAB PO EVERY 4-6 HOURS as needed for pain 10 November 05, 2024 December 12, 2024 9:17am to be used post op amoxicillin 500 mg oral tablet (14 sources)Penicillin-class AntibacterialStart: 01-30-2025 End: 07-91-6706jseu 4 tablets by mouth onceAmoxicillin 500 mg tablet Discontinued 2000 MG PO once 4 January 30, 2025 12:00am May 12, 2025 10:38amStart: 03-14-2024 End: 32-20-7051akbr 4 tablets by mouth onceAmoxicillin 500 mg tablet Discontinued 2000 MG PO once 4 March 14, 2024 12:00am August 10:59amamoxicillin 875 mg / clavulanate 125 mg oral tablet (20 sources)Penicillin-class AntibacterialStart: 10-13-2023 End: 42-75-8220Scecttfhbiq-Pot Clavulanate 875-125 mg tablet Discontinued TAB PO October 13, 2023 12:00am November 08, 2023 8:48amaspirin 81 mg oral tablet (20 sources)Platelet Aggregation Inhibitor, Nonsteroidal Anti-inflammatory Drug Start: 12-12-2024 End: 51-33-4599cowo 1 capsule by mouth once daily in the morningAspirin 81 mg capsule Discontinued 81 MG PO Every morning December 12, 2024 12:00am May 120:38amStart: 12-10-2024 End: 60-04-3536anrtikt 81 mg chewable tablet Indications: Abnormal cardiac CT angiography , Chest pain, unspecified type Chew 1 tablet (81 mg) once daily. 30 tablet 11 12/10/2024 12/10/2025 ActiveStart: 10-13-2023 End: 05-97-2652qrty 1 tablet by mouth twice dailyAspirin 81 mg tablet,delayed release (DR/EC) Discontinued 81 MG PO Twice daily 70 35 October 13, 2023 12:00am December 06, 2023 11:18am DO NOT RECONCILE UNTIL DOS:10/23/2023 MED TO BEDbiotin 10 mg oral capsule (14 sources)Start: 01-12-2024 End: 93-73-1940qpet 1 capsule by mouth once dailyBiotin 10,000 mcg capsule Discontinued 43926 MCG PO Daily January 12, 2024 12:00am November 06, 2024 10:05am cefadroxil 500 mg oral capsule (20 sources)Cephalosporin AntibacterialStart: 10-13-2023 End: 24-26-7964mrmx 1 capsule by mouth every twelve hoursCefadroxil 500 mg capsule Discontinued 500 MG PO Q12H 14 7 October 13, 2023 12:00am November 08, 2023 8:48am DO NOT RECONCILE UNTIL DOS:10/23/2023 MED TO BEDcelecoxib 200 mg oral capsule (20 sources)Nonsteroidal Anti-inflammatory DrugStart: 10-13-2023 End: 28-29-5086tbuh 1 capsule by mouth twice dailyCelecoxib 200 mg capsule Discontinued 200 MG PO Twice daily 60 October 13, 2023 12:00am November 11:18am DO NOT RECONCILE UNTIL DOS:10/23/2023 MED TO BEDcephalexin 500 mg oral capsule (13 sources)Cephalosporin AntibacterialStart: 01-30-2024 End: 50-11-4659ayrh 1 capsule by mouth twice dailyCephalexin 500 mg capsule Discontinued 500 MG PO Twice daily 6 3 January 30, 2024 12:00am September 14, 2024 10:59amdocusate sodium 50 mg / sennosides, fpc 8.6 mg oral tablet (20 sources)Start: 10-13-2023 End: 63-67-0530taeg 2 tablets by mouth once dailySennosides-Docusate Sodium (Senokot-S) 8.6-50 mg tablet Discontinued 2 TAB PO daily 60 October 13, 2023 12:00am November 08, 2023 8:48am DO NOT RECONCILE UNTIL DOS:10/23/2023 MED TO BED ergocalciferol 1.25 mg oral capsule (20 sources)Provitamin D2 CompoundStart: 09-28-2023 End: 59-73-8629rqyl 1 capsule by mouth every weekErgocalciferol (Vitamin D2) 1,250 mcg (50,000 unit) capsule Discontinued 1250 MCG PO Q7D 8 60 September 28, 2023 1:00am January 12, 2024 12:44pmhydrOXYzine hydrochloride 25 mg oral tablet (20 sources)AntihistamineStart: 09-14-2024 End: 74-19-5816Cvsonvohanw Hcl 25 mg tablet Discontinued MG PO September 14, 2024 1:00am October 24, 2024 8:40amStart: 08-29-2024 End: 93-26-4187Tajhejdgiqx Hcl 25 mg tablet Discontinued MG PO September 14, 2024 1:00am October 24, 2024 8:40amondansetron 4 mg oral tablet (20 sources)Serotonin-3 Receptor AntagonistStart: 10-13-2023 End: 39-35-9251qnnq 1 tablet by mouth every eight hours as needed for nausea Ondansetron Hcl 4 mg tablet Discontinued 4 MG PO Q8H as needed for Nausea 9 October 13, 2023 12:00am November 08, 2023 8:48am DO NOT RECONCILE UNTIL DOS:10/23/2023 MED TO BEDoseltamivir 75 mg oral capsule (12 sources)Neuraminidase InhibitorStart: 09-14-2024 End: 06-69-4603spyb 1 capsule by mouth twice dailyOseltamivir (Tamiflu) 75 mg capsule Discontinued 75 MG PO Twice daily 10 September 14, 2024 1:00am October 01, 2024 11:42amoxyCODONE hydrochloride 5 mg oral tablet (20 sources)Opioid AgonistStart: 10-13-2023 End: 32-31-7907nayi 1 tablet by mouth every four hours as needed for pain Oxycodone 5 mg tablet Discontinued 5 MG PO Q4H as needed for Pain 42 October 13, 2023October 8:48am DO NOT RECONCILE UNTIL DOS:10/23/2023 MED TO BEDpolyethylene glycol 3350 26354 mg powder for oral solution (20 sources)Osmotic LaxativeStart: 10-13-2023 End: 97-75-3424Gafowwgtxkzg Glycol 3350 (Miralax) 17 gram/dose powder Discontinued 17 GM PO daily 7 October 13, 2023 12:00am November 08, 2023 8:48am 1 packed mixed with 8 ounces of fluid. DO NOT RECONCILE UNTIL DOS:10/23/2023 MED TO BEDpredniSONE 20 mg oral tablet (12 sources)Start: 09-14-2024 End: 04-43-0097ocgg 1 tablet by mouth twice dailyPrednisone 20 mg tablet Discontinued 20 MG PO Twice daily 10 5 September 14, 2024 1:00am October 01, 2024 11:42amSod Picosulf-Mag Ox-Citric Ac (15 sources)Start: 12-18-2023 End: 20-60-8880atxt 1 dose by mouth once dailySod Picosulf-Mag Ox-Citric Ac (Clenpiq) 10 mg-3.5 gram- 12 gram/175 mL solution Discontinued 175 MLPO Daily 350 0 December 18, 2023 12:00am October 01, 2024 11:41am take first dose at 3PM evening beforecolonoscopy; 2nd dose at 9pm the night before colonoscopyStart: 12-18-2023 End: 33-65-3112ueds 1 dose by mouth once dailySod Picosulf-Mag Ox-Citric Ac (Clenpiq) 10 mg-3.5 gram- 12 gram/175 mL solution Discontinued 175 MLPO Daily 350 0 December 17, 2023 11:00pm October 01, 2024 10:41am take first dose at 3PM evening beforecolonoscopy; 2nd dose at 9pm the night before colonoscopyStart: 83-54-6258lszm 1 dose by mouth once dailySod Picosulf-Mag Ox-Citric Ac (Clenpiq) 10 mg-3.5 gram- 12 gram/175 mL solution Active 175 ML PO Daily 350 0 December 17, 2023 11:00pm take first dose at 3PM evening before colonoscopy; 2nd dose at 9pm the night before colonoscopyStart: 85-90-6329pwqr 1 dose by mouth once dailySod Picosulf-Mag Ox-Citric Ac (Clenpiq) 10 mg-3.5 gram- 12 gram/175 mL solution Active 175 ML PO Daily 350 0 December 18, 2023 12:00am take first dose at 3PM evening before colonoscopy; 2nd dose at 9pm the night before colonoscopytraMADol hydrochloride 50 mg oral tablet (20 sources)Opioid AgonistStart: 10-13-2023 End: 93-28-5277xplj 1 tablet by mouth every six hours as needed for painTramadol 50 mg tablet Discontinued 50 MG PO Q6H as needed for Pain 40 10 October 13, 2023 12:00am November 08, 2023 8:48am DO NOT RECONCILE UNTIL DOS:10/23/2023 MED TO BED Start: 10-10-2023 End: 87-63-5619gqyk 1 tablet by mouth once daily as needed for painTramadol 50 mg tablet Discontinued 50 MG PO Daily as needed for pain October 10, 2023 12:00am 2023 7:36am FreeTextSi tablet as needed Orally Once a day; Note: Source Status: Takingprn; Provider: Brandt Smith II ( )take 1 tablet by mouth every twenty-four hourstraMADol HCl 50 MG 1 tablet as needed Orally Once a day prn Activetriamcinolone acetonide 40 mg/ml injectable suspension (4 sources)CorticosteroidStart: 92-96-6291Kriahws-40 Jun, 40 mgStart: 46-06-6652Mquysvv-40 Jun, 120 mg Problems Active Problems Problem ClassificationProblemDateDocumented DateEpisodic/ChronicAcute and chronic tonsillitis (2 sources)Tonsillar tag; Translations: [Other chronic diseases of tonsils and adenoids]88-16-8027EtmbdzsSalmwxynja disorders (20 sources)Stress and adjustment reaction; Translations: [Adjustment disorder with other symptoms]Onset: 649002-94-8681VuubmexUakyugd disorders (2 sources)Anxiety; Translations: [Anxiety disorder, unspecified]08-29-2024 ChronicChronic obstructive pulmonary disease and bronchiectasis (20 sources)Centriacinar emphysema; Translations: [Centrilobular emphysema] Onset: 855912-74-3227YjohkfqXeuugilm atherosclerosis and other heart disease (2 sources)Calcification of coronary artery; Translations: [Atherosclerotic heart disease of [place] coronary artery without angina pectoris]09-05-2024 ChronicDisorders of lipid metabolism (20 sources)Hyperlipidemia, unspecified; Translations: [Hyperlipidemia]Onset: 50-39-5662ImpasvxGxryhfcng (8 sources)Influenza due to other identified influenza virus with other respiratory manifestations; Translations: [Influenza with other respiratory manifestations]31-80-2577MnjtkzsfLgammxjsvrsfn mental health disorders (20 sources)Psychophysiologic insomnia; Translations: [Psychophysiologic insomnia]Onset: 469269-34-5012DjwzbvdBfmsmbldrnqpfo (20 sources)Osteoarthritis of left hip joint; Translations: [Unilateral primary osteoarthritis, left hip]Onset: 41-18-5185QawmupvZklamxrbaqla (2 sources)Age-related osteoporosis without current pathological fracture; Translations: [Age-related osteoporosis without current pathological fracture] ChronicOther aftercare (17 sources)Patient encounter status; Translations: [Aftercare following joint replacement surgery]66-47-1521EbjinheAfmcj aftercare (15 sources)Aftercare following joint replacement surgery; Translations: [Aftercare following joint replacement]22-05-4646DezjooaRszap aftercare (1 source)Other longterm (current) drug therapyEpisodicOther aftercare (1 source)Surgical follow-up; Translations: [Encounter for removal of sutures] 78-47-7560CwiklwuqAozir aftercare (1 source)Encounter for removal of sutures; Translations: [Encounter for removal of sutures]03-79-9613VuuwabzuYkpst aftercare (3 sources)Removal of sutures done; Translations: [Encounter for removal of sutures]54-27-6165UiwohkwxGduoz circulatory disease (3 sources)Elevated blood-pressure reading without diagnosis of hypertension; Translations: [Elevated blood-pressure reading, without diagnosis of hypertension]Onset: 065078-99-8687NfdwdfebSmeoo circulatory disease (1 source)Elevated blood-pressure reading, without diagnosis of hypertension; Translations: [Elevated blood-pressure reading, without diagnosis of hypertension]Onset: 38-60-2395FjyjnymsOsiqq circulatory disease (2 sources)Spider nevus; Translations: [Nevus, non-neoplastic]19-11-2608Xjaitisf Other connective tissue disease (17 sources)Hip joint prosthesis present; Translations: [Presence of left artificial hip joint]55-51-5536RdgsumxYwbqw connective tissue disease (16 sources)Presence of left artificial hip joint; Translations: [Hip joint replacement]Onset: 513056-76-0085DlsdpwdAtbyz connective tissue disease (20 sources)History of repair of hip joint; Translations: [Presence of left artificial hip joint]Onset: 58-20-501152049680-48-8880YjfjdrmViidc connective tissue disease (2 sources)Impingement syndrome of left shoulderEpisodicOther hereditary and degenerative nervous system conditions (7 sources)Restless legs; Translations: [Restless legs syndrome]Onset: 909315-30-2067LvhvebyTnufh nervous system disorders (12 sources)Carpal tunnel syndrome of right wrist; Translations: [Carpal tunnel syndrome, right upper limb]67-34-4271EkkpjwvAecnd nervous system disorders (18 sources)Carpal tunnel syndrome, right upper limb; Translations: [Carpal tunnel syndrome]Onset: 042352-52-7675UhefrfyPlnoh non-traumatic joint disorders (1 source)Pain in left hipEpisodicOther non-traumatic joint disorders (11 sources)Pain in wrist; Translations: [Pain in right wrist]93-76-7657Hgxijuul Other nutritional; endocrine; and metabolic disorders (2 sources)Morbid (severe) obesity due to excess calories; Translations: [Obesity, morbid, BMI 50 or higher]ChronicOther skin disorders (2 sources)Seborrheic keratosis; Translations: [Other seborrheic keratosis] 71-28-4525JpzcvffhXojid skin disorders (2 sources)Inflamed seborrheic keratosis; Translations: [Inflamed seborrheic keratosis]67-56-2657NeexjvpiNygnb skin disorders (2 sources)Actinic keratosis; Translations: [Actinic keratosis]12-03-2024 EpisodicOther skin disorders (2 sources)Lentigo simplex; Translations: [Other melanin hyperpigmentation] 30-61-5285UjfpubwjLpwbhqpw codes; unclassified (2 sources)Family history of congestive heart failure; Translations: [Family history of ischemic heart diseaseand other diseases of the circulatory system] 23-12-6871BinawmilLgmbkuty codes; unclassified (2 sources)Family history of aneurysm of abdominal aorta; Translations: [Family history of ischemic heart disease and other diseases of the circulatory system] 36-88-9419BqarclggXzckycns codes; unclassified (3 sources)FH: Cardiovascular disease; Translations: [Family history of ischemic heart disease and other diseases of the circulatory system]Onset: 08-26-2024 84-42-2033VbhewmugJqjffrum codes; unclassified (1 source)Family history of ischemic heart disease and other diseases of the circulatory system; Translations: [Family history of ischemic heart disease and other diseases of the circulatory system]Onset: 19-57-1367QfnxfglbYjfxsafx codes; unclassified (6 sources)Postprocedural state finding; Translations: [Other specified postprocedural states]36-74-3211JgafofknTbjluwhr codes; unclassified (2 sources)Body mass index 20-24 - normal; Translations: [Body mass index (BMI) 24.0-24.9, adult]Onset: 215830-20-2817GvvgngywOsygkpku codes; unclassified (1 source)Other specified postprocedural states; Translations: [Other postprocedural status]83-08-5737BgrpelzvFwumrtsk codes; unclassified (2 sources)Body mass index (BMI) 24.0-24.9, adult; Translations: [Body mass index (BMI) 24.0-24.9, adult]Onset: 12-24-3743WvefewazYlxzoedndoov (1 source)New PatientOnset: 10-17-2024 Past or Other Problems Problem ClassificationProblemDateDocumented DateEpisodic/ChronicNeoplasms of unspecified nature or uncertain behavior (20 sources)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; Translations: [Neoplasm of uncertain behavior of other specified sites of the oral cavity] Onset: 08-29-2024 Resolved: 564416-71-2947AmwjylpkUtanmgzevhk chest pain (11 sources)Chest pain; Translations: [Chest pain, unspecified]Onset: 10-17-2024 47-45-4984ObwpnambRxgog non-traumatic joint disorders (1 source)Pain in right wrist; Translations: [Pain in right wrist]Onset: 22-18-3389LlgrjljgYituf non-traumatic joint disorders (1 source)Pain in left wrist; Translations: [Pain in left wrist]Onset: 43-42-7354PjmgyaqvSjsfp screening for suspected conditions (not mental disorders or infectious disease) (20 sources)Encounter for screening mammogram for malignant neoplasm of breast; Translations: [Encounter for screening for malignant neoplasm of respiratory organs]Onset: 04-05-2022 Resolved: 13-38-9564BfffzqwdWmnlz skin disorders (20 sources)Loss of hair; Translations: [Nonscarring hair loss, unspecified] Onset: 403716-44-6275YlsgewbvRmrvu upper respiratory infections (7 sources)Acute upper respiratory infection; Translations: [Acute upper respiratory infection, unspecified]Onset: 100424-66-1790ZwlkcncpFbpyizam enteritis and ulcerative colitis (20 sources)Colitis; Translations: [Left sided colitis with rectal bleeding] Onset: 09-21-2023 Resolved: 288677-23-0996PsxehojDgvamsch codes; unclassified (20 sources)Family history of cardiac disorder; Translations: [Family history of ischemic heart disease and other diseases of the circulatory system]Onset: 119221-48-3657DdsjkqwcKgafnnajr and history of mental health and substance abuse codes (11 sources)Personal history of nicotine dependence; Translations: [Ex-smoker] Onset: 206445-59-9961LwmumswgPstpvyuvgksr (1 source)Onset: Results Test NameValueInterpretationReference RangeFacilityMM TOMOSYNTHESIS SCREENING BI on 75-56[place] [address] Mammography Report Signed Patient: NADYA RODRIGUEZ MR#: [id number] : 1955 Acct:[id number] Age/Sex: 70 / F ADM Date: 03/12/25 Loc: MAMMO Attending Dr: Rogelio Coleman M.D. Ordering Physician: Rogelio Coleman M.D. Results: Date of Service: 03/12/25 Follow Up: Procedure(s): MM tomosynthesis screening BI Accession Number(s): [id number] cc: Rogelio Coleman M.D. Patient Name: NADYA RODRIGUEZ MR#: [id number] : 1955 Exam Date: 03/12/2025 Ordering Doctor: DR ROGELIO COLEMAN . RADIOLOGY REPORT PROCEDURE: MM TOMOSYNTHESIS SCREENING BI COMPARISON: MM TOMOSYNTHESIS SCREENING BI, 11/29/2023. MG MAMM SCREEN 3D ARCHIE CAD, 10/27/2022. INDICATIONS: Screening Calculator Name NCI Breast Cancer Risk Assessment Tool 5 Year Breast Cancer Risk 1.40% Lifetime Breast Cancer Risk 4.40% Personal Breast Cancer No Personal Ovarian Cancer No Treatments None Family Cancers None LOCATION: [facility] BREAST COMPOSITION: There are scattered areas of fibroglandular density. FINDINGS: RIGHT BREAST: No significant suspicious finding. LEFT BREAST: No significant suspicious finding. DIAGNOSTIC CATEGORY 1--NEGATIVE. RECOMMENDATIONS: ROUTINE MAMMOGRAM AND CLINICAL EVALUATION IN 12 MONTHS. PLEASE NOTE: A NORMAL MAMMOGRAM DOES NOT EXCLUDE THE POSSIBILITY OF BREAST CANCER. A CLINICALLY SUSPICIOUS PALPABLE LUMP SHOULD BE BIOPSIED. Dictated by: Juan Antonio Roberts MD on 03/12/2025 at 14:14 Approved by: Juan Antonio Roberts MD on 03/12/2025 at 14:19 Dictated By: Juan Antonio Roberts M.D. Signed By: 03/12/25 1421 DD/ 1420 TD/TT: Rn Prior Authorization:TBHRadiology, Radiologist, - 03/12/2025 [place] [address] Mammography Report Signed Patient: NADYA RODRIGUEZ MR#: [id number] : 1955 Acct:[id number] Age/Sex: 70 / F ADM Date: 03/12/25 Loc: MAMMO Attending Dr: Rogelio Coleman M.D. Ordering Physician: Rogelio Coleman M.D. Results: Date of Service: 03/12/25 Follow Up: Procedure(s): MM tomosynthesis screening BI Accession Number(s): [id number] cc: Rogelio Coleman M.D. Patient Name: NADYA RODRIGUEZ MR#: [id number] : 1955 Exam Date: 03/12/2025 Ordering Doctor: DR ROGELIO COLEMAN . RADIOLOGY REPORT PROCEDURE: MM TOMOSYNTHESIS SCREENING BI COMPARISON: MM TOMOSYNTHESIS SCREENING BI, 11/29/2023. MG MAMM SCREEN 3D ARCHIE CAD, 10/27/2022. INDICATIONS: Screening Calculator Name NCI Breast Cancer Risk Assessment Tool 5 Year Breast Cancer Risk 1.40% Lifetime Breast Cancer Risk 4.40% Personal Breast Cancer No Personal Ovarian Cancer No Treatments None Family Cancers None LOCATION: [facility] BREAST COMPOSITION: There are scattered areas of fibroglandular density. FINDINGS: RIGHT BREAST: No significant suspicious finding. LEFT BREAST: No significant suspicious finding. DIAGNOSTIC CATEGORY 1--NEGATIVE. RECOMMENDATIONS: ROUTINE MAMMOGRAM AND CLINICAL EVALUATION IN 12 MONTHS. PLEASE NOTE: A NORMAL MAMMOGRAM DOES NOT EXCLUDE THE POSSIBILITY OF BREAST CANCER. A CLINICALLY SUSPICIOUS PALPABLE LUMP SHOULD BE BIOPSIED. Dictated by: Juan Antonio Roberts MD on 03/12/2025 at 14:14 Approved by: Juan Antonio Roberts MD on 03/12/2025 at 14:19 Dictated By: Juan Antonio Roberts M.D. Signed By: 03/12/25 142 DD/ 19 TD/TT: Rn [facility] (n[facility]ative[facility] TOMOSYNTHESIS SCREENING BIOrdered By: Radiologist Radiology on 52-07-2429[facility] Work Phone: ct LUNG SCREENING LOW DOSEon 46-57-7572[address] [address] [address] Scan Report Signed Patient: NADYA RODRIGUEZ MR#: [id number] : 1955 Acct:[id number] Age/Sex: 69 / F ADM Date: 01/24/25 Loc: CT Attending Dr: Rogelio Coleman M.D. Ordering Physician: Rogelio Coleman M.D. Date of Service: 01/24/25 Procedure(s): CT lung screening low-dose Accession Number(s): [id number] cc: Rogelio Coleman M.D. [address] [address] Patient Name: NADYA RODRIGUEZ MRN: [id number] date: 1955 Sex: F Assigned Patient Location: CT Current Patient Location: CT Accession/Order Number: [id number] Exam Date: 01/24/2025 10:09 Report Date: 01/24/2025 [...] Melchor M.D. 01/24/2025 10:14 AM Dictation Location: [place] [address] Electronically authenticated by: [id number] Y Date: 01/24/2025 10:14 Dictated By: Mariel Melchor M.D. Signed By: 01/24/25 1017 DD/ 1014 TD/TT: Rn Prior Authorization:TBHRadiology, Radiologist, MD - 01/24/2025 [place] [address] CT Scan Report Signed Patient: NADYA RODRIGUEZ MR#: [id number] : 1955 Acct:[id number] Age/Sex: 69 / F ADM Date: 01/24/25 Loc: CT Attending Dr: Rgoelio Coleman M.D. Ordering Physician: Rogelio Coleman M.D. Date of Service: 01/24/25 Procedure(s): CT lung screening low-dose Accession Number(s): [id number] cc: Rogelio Coleman M.D. [place] [id number] Patient Name: NADYA RODRIGUEZ MRN: [id number] date: 1955 Sex: F Assigned Patient Location: CT Current Patient Location: CT Accession/Order Number: [id number] Exam Date: 01/24/2025 10:09 Report Date: 01/24/2025 [...] Melchor M.D. 01/24/2025 10:14 AM Dictation Location: [place] [address] Electronically authenticated by: [id number] Y Date: 01/24/2025 10:14 Dictated By: Mariel Melchor M.D. Signed By: 01/24/25 1017 DD/ 1014 TD/TT: Rn Prior Authorization: [facility] HealthcareRadiology Study observation (narrative)[facility] HealthcareCT LUNG SCREENING LOW DOSEOrdered By: Radiologist Radiology on 03-83-3782[employer] Work Phone: basophils [#/volume] in Blood by Automated count Ordered By: Remy Olivarez on 28-05-3796Xlecnctxk (Bld) [#/Vol]0.0 10*3/uLNormal 0.0-0.2FEast Ohio Regional HospitalComment on above:Result Comment: PERFORMED BY: [place] [address] PATHOLOGIST [employer] NANCY ARIZMENDI M.D.Performed By: #### PP, CBC, LYTES, BUN, CREAT, LIPID #### [facility] [address] [place] [address] USABasophils/100 leukocytes in Blood by Automated count Ordered By: Remy Olivarez on 58-16-6741Zlfdrklko/100 WBC (Bld)0.8 %Normal.[facility] Campus Medical CenterComment on above:Performed By: #### PP, CBC, LYTES, BUN, CREAT, LIPID #### [facility] [address] [place] [address] USACarbon dioxide, total [Moles/volume] in Serum or Plasma Ordered By: Remy Olivarez on 30-71-6710GQ2 [Moles/Vol]26.1 mmol/QIaijkl05.0-31.0 [facility] Medical CenterComment on above:Performed By: #### PP, CBC, LYTES, BUN, CREAT, LIPID #### [facility] [address] [place], [place] [address] USAChloride [Moles/volume] in Serum or PlasmaOrdered By: Remy Olivarez on 84-60-7702Wapjtieu [Moles/Vol]109 mmol/MQoma79-509UvmprhfonMain Campus Medical CenterComment on above:Performed By: #### PP, CBC, LYTES, BUN, CREAT, LIPID #### [facility] [address] [place], [place] [address] USACholesterol [Mass/volume] in Serum or PlasmaOrdered By: Remy Olivarez on 52-49-8771Noyvfajtmvo [Mass/Vol]175 mg/uJCmdigl326-540HizhhcojtMain Campus Medical CenterComment on above:Chol less than 200 mg/dl low riskChol 201-239 mg/dl borderline riskChol 240 mg/dl and greater high riskResult Comment: Chol less than 200 mg/dl low risk Chol 201-239 mg/dl borderline risk Chol 240 mg/dl and greater high riskPerformed By: #### PP, CBC, LYTES, BUN, CREAT, LIPID #### [facility] [address] [place] [address] USACholesterol in HDL [Mass/volume] in Serum or PlasmaOrdered By: Remy Olivarez on 30-22-2081Fxygsulybcg in HDL [Mass/Vol]58 mg/kZJgoccl08-43 [facility] Medical CenterComment on above:HDL CHOL ATP-III CLASSIFICATION Cardiovascular RiskHDL > or equal to 60 mg/dL LOWHDL < 40 mg/dL HIGHResult Comment: HDL CHOL ATP-III CLASSIFICATION Cardiovascular Risk HDL > or equal to 60 mg/dL LOW HDL < 40 mg/dL HIGHPerformed By: #### PP, CBC, LYTES, BUN, CREAT, LIPID #### [facility] [address] [place] [address] USACholesterol in LDL Calc [Mass/Vol]Ordered By: Remy Olivarez on 70-14-3092Nlciqygyuus in LDL [Mass/Vol]94 mg/dL0-100[facility] Campus Medical CenterComment on above:LDL ATP III CLASSIFICATIONLDL less than 100 mg/dL OptimalLDL 100-129 mg/dL Near or above aoivhieKMJ346-975 mg/dL Borderline highLDL 160-189 mg/dL HighLDL greater than 189 mg/dL Very highCholesterol in VLDL Calc [Mass/Vol]Ordered By: Remy Olivarez on 79-11-3509Dskiliwaont in VLDL [Mass/Vol]22 mg/dLMain Campus Medical CenterCoagulation Profileon 74-43-9893uHBR Coag (Bld) [Time]27.9 yBdgdzi56.1-36.5The Atrium Health Physician GroupComment on above:Result Comment: A hematocrit value greater than 55% may lead to inaccurate results in coagulation testing. Patients having hematocrit values >55% require a special collection tube for coagulation studies. Please contact the laboratory at [phone] for redraw instructions. PERFORMED BY: [place] [address] PATHOLOGIST [employer] NANCY ARIZMENDI M.D.Performed By: #### PP, CBC, LYTES, BUN, CREAT, LIPID ####[facility] [place], [place] [address] [facility] Complete Blood Count Auto Diffon 54-86-6074Hfrl Corpuscular HGB Conc33.7 g/dL Hgizbr46.0-35.0The [facility] Health Physician GroupComment on above:Performed By: #### PP, CBC, LYTES, BUN, CREAT, LIPID #### [place] [address] USANRBC%0.1 /100{WBC}Normal0-0.5[facility] Comment on above:Performed By: #### PP, CBC, LYTES, BUN, CREAT, LIPID #### [place] [address] USACreatinineon 43-89-7284BDT/1.73 sq M.predicted MDRD (S/P/Bld) [Vol rate/Area]mL/min/{1.73_m2}NormalThe Atrium Health Physician Group Comment on above:Performed By: #### PP, CBC, LYTES, BUN, CREAT, LIPID #### [place] [address] USACreatinine [Mass/volume] in Serum or PlasmaOrdered By: Remy Olivarez on 15-18-9049Bxsnqxxlln [Mass/Vol]0.73 mg/dLNormal0.60-1.20[facility] Medical CenterComment on above:Performed By: #### PP, CBC, LYTES, BUN, CREAT, LIPID #### [place] [address] USAEosinophils [#/volume] in Blood by Automated countOrdered By: Remy Olivarez on 43-99-1831Hqghqoqvwwb (Bld) [#/Vol]0.1 10*3/uLNormal0.0-0.45 [facility] Medical CenterComment on above:Performed By: #### PP, CBC, LYTES, BUN, CREAT, LIPID #### [place] [address] USAEosinophils/100 leukocytes in Blood by Automated count Ordered By: Remy Olivarez on 09-54-8132Puxjkomuhtj/100 WBC (Bld)2.6 %Normal. [facility] Campus Medical CenterComment on above:Performed By: #### PP, CBC, LYTES, BUN, CREAT, LIPID #### [place] [address] USAErythrocyte distribution width [Ratio] by Automated count Ordered By: Remy Olivarez on 68-77-1749Qtwltygjkfk distribution width (RBC) [Ratio] 15.5 %High11.9-15.3FEast Ohio Regional HospitalComment on above:Performed By: #### PP, CBC, LYTES, BUN, CREAT, LIPID #### [place] [address] USAErythrocytes [#/volume] in Blood by Automated countOrdered By: Remy Olivarez on 61-36-5111BUZ (Bld) [#/Vol]4.48 10*6/uLNormal3.60-5.00 [facility] Medical CenterComment on above:Performed By: #### PP, CBC, LYTES, BUN, CREAT, LIPID #### [place] [address] USAHematocrit [Volume Fraction] of Blood by Automated count Ordered By: Remy Olivarez on 94-65-5509Exvkzpumtn (Bld) [Volume fraction]40.7 % Hfbppw31.0-46.4FEast Ohio Regional HospitalComment on above:Performed By: #### PP, CBC, LYTES, BUN, CREAT, LIPID #### [place] [address] USAHemoglobin [Mass/volume] in BloodOrdered By: Remy Olivarez on 87-60-8754Izzhpmknpd (Bld) [Mass/Vol]13.7 g/pAIwitfq68.8-15.4FEast [facility] Regional HospitalComment on above:Performed By: #### PP, CBC, LYTES, BUN, CREAT, LIPID #### [facility] [address] [place] [id number] USAINR in Platelet poor plasma by Coagulation assayOrdered By: Remy Olivarez on 74-90-5836RVQ Coag (PPP) [Relative time]0.9 {INR}Normal [facility] Campus Medical CenterComment on above:INR Therapeutic Range A) Pre- and Peroperative OAT started two weeks before surgery. NOT HIP SURGERY: 1.5 - 2.5 HIP SURGERY: 2 - 3B) Primary and secondary prevention of venous THROMBOSIS: 2 - 3C) Active venous thrombosis, pulmonary embolismand prevention of recurrent venous thrombosis: 2 - 3D) Prevention of arterial thromboembolismincluding patients with mechanical heart valves: 3 - 4.5Result Comment: INR Therapeutic Range A) Pre- and [...] patients with mechanical heart valves: 3 - 4.5Performed By: #### PP, CBC, LYTES, BUN, CREAT, LIPID ####[facility] [address] [place] [address] USALeukocytes [#/volume] corrected for nucleated erythrocytes in Blood by Automated counOrdered By: Remy Olivarez on 64-91-2654CXJ corrected for nucl RBC Auto (Bld) [#/Vol]4.5 10*3/uL3.8-11.6FEast Ohio Regional HospitalLeukocytes [#/volume] in Blood by Automated countOrdered By: Remy Olivarez on 68-67-1539AIF (Bld) [#/Vol]4.5 10*3/uLNormal3.8-11.6FEast [facility] Regional HospitalComment on above:Performed By: #### PP, CBC, LYTES, BUN, CREAT, LIPID #### [facility] [address] [place] [address] USALipid Panelon 64-07-8741NQK Cholesterol,Pifrrxxwym64 mg/dL Normal0-100The [facility]ician [facility] Health WesleyComment on above:Result Comment: LDL ATP III CLASSIFICATION LDL less than 100 mg/dL Optimal LDL 100-129 mg/dL Near or above optimal LDL 130-159 mg/dL Borderline high LDL 160-189 mg/dL High LDL greater than 189 mg/dL Very highPerformed By: #### PP, CBC, LYTES, BUN, CREAT, LIPID #### [facility] [address] [place] [address] USATriglyceride w/Evenps645 mg/dLNormal0-149The [facility] Health Physician GroupComment on above:Result Comment: TRIG ATP III CLASSIFICATION TRIG less than 150 mg/dL Normal TRIG 150-199 mg/dL Borderline high TRIG 200-500 mg/dL High TRIG greater than 500 mg/dL Very high Standard traceable to the Center for Disease Conrtrol and Prevention (CDC) test method.Performed By: #### PP, CBC, LYTES, BUN, CREAT, LIPID #### [facility] [address] [place] [id number] USAVLDL SIVMSKPBIHG70 mg/dLNormalThe Atrium Health Physician GroupComment on above:Performed By: #### PP, CBC, LYTES, BUN, CREAT, LIPID #### [facility] [address] [place] [id number] USALymphocytes [#/volume] in Blood by Automated countOrdered By: Remy Olivarez on 86-74-3119Jgdenbinonl (Bld) [#/Vol]1.7 10*3/uLNormal1.00-4.8 [facility] Medical CenterComment on above:Performed By: #### PP, CBC, LYTES, BUN, CREAT, LIPID #### [facility] [address] [place] [id number] USALymphocytes/100 leukocytes in Blood by Automated count Ordered By: Remy Olivarez on 41-35-5531Abbcthsbgqo/100 WBC (Bld)38.5 %Normal. [facility] Medical CenterComment on above:Performed By: #### PP, CBC, LYTES, BUN, CREAT, LIPID #### [facility] [address] [Entitic mass] by Automated countOrdered By: Remy Olivarez on 25-83-0056UAD (RBC) [Entitic mass]30.6 yvLdkmkc76.7-34.3FEast Ohio Regional HospitalComment on above:Performed By: #### PP, CBC, LYTES, BUN, CREAT, LIPID #### [facility] [address] Auto (RBC) [Mass/Vol]Ordered By: Remy Olivarez on 88-40-7631LXMZ (RBC) [Mass/Vol]33.7 g/dL32.0-35.0[facility] Campus Medical CenterMCV [Entitic volume] by Automated countOrdered By: Remy Olivarez on 12-12-2024 MCV (RBC) [Entitic vol]90.8 zXIzhseo21-497KxdnrjdoyMain Campus Medical Center Comment on above:Performed By: #### PP, CBC, LYTES, BUN, CREAT, LIPID #### [place] [address] USAMonocytes [#/volume] in Blood by Automated countOrdered By: Remy Olivarez on 91-52-9050Nvrqmgbzl (Bld) [#/Vol]0.3 10*3/uLNormal0.0-0.8 [facility] CenterComment on above:Performed By: #### PP, CBC, LYTES, BUN, CREAT, LIPID #### [facility] [address] [place] [address] USAMonocytes/100 leukocytes in Blood by Automated count Ordered By: Remy Olivarez on 78-77-1326Fqhsmnsub/100 WBC (Bld)7.1 %Normal.[facility] Medical CenterComment on above:Performed By: #### PP, CBC, LYTES, BUN, CREAT, LIPID #### [place] [address] USANeutrophils [#/volume] in Blood by Automated countOrdered By: Remy Olivarez on 51-79-8844Nvmtifuedxr (Bld) [#/Vol]2.3 10*3/uLNormal1.8-7.7 [facility] Medical CenterComment on above:Performed By: #### PP, CBC, LYTES, BUN, CREAT, LIPID #### [facility] [address] [place] [address] USANeutrophils/100 leukocytes in Blood by Automated count Ordered By: Remy Olivarez on 53-94-3520Luuwllqvxoc/100 WBC (Bld)51.0 %Normal. [facility] Medical CenterComment on above:Performed By: #### PP, CBC, LYTES, BUN, CREAT, LIPID #### [facility] [address] [place] [address] USANo Panel InformationOrdered By: Remy Olivarez on 12-12-2024 Estimated GFR (CKD-EPI)> 60.0 mL/MinMain Campus Medical CenterPharmacy Creatinine Clearance (ChemN/[facility] Hospital [facility] ColumbusNucleated erythrocytes [Presence] in Blood by Automated countOrdered By: Remy Olivarez on 29-72-2804Pxtwiwjhy RBC Auto Ql (Bld)0.1 /100{WBC}0-0.5FEast Ohio Regional HospitalPlatelet mean volume [Entitic volume] in Blood by Automated count Ordered By: Remy Olivarez on 66-64-7879Rjmfugvm mean volume (Bld) [Entitic vol]9.9 fLNormal6.3-10.7FEast Ohio Regional HospitalComment on above:Performed By: #### PP, CBC, LYTES, BUN, CREAT, LIPID #### [facility] [address] [place] [id number] USAPlatelets [#/volume] in Blood by Automated countOrdered By: Remy Olivarez on 13-84-9019Nsesrfhvo (Bld) [#/Vol]158 10*3/jMOlmydi715-779 [facility] Medical CenterComment on above:Performed By: #### PP, CBC, LYTES, BUN, CREAT, LIPID #### [facility] [address] [place] [address] USAPotassium [Moles/volume] in Serum or PlasmaOrdered By: Remy Olivarez on 63-74-5635Ekcuawxuw [Moles/Vol]4.3 mmol/LNormal3.5-5.1FEast Ohio Regional HospitalComment on above:Performed By: #### PP, CBC, LYTES, BUN, CREAT, LIPID #### [facility] [address] [place] [address] USAProthrombin time (PT)Ordered By: Remy Olivarez on 63-97-8395EJ Coag (PPP) [Time]10.8 sNormal9.0-12.9[facility] Campus Medical CenterComment on above:A hematocrit value greater than 55% may lead to inaccurate results in coagulation testing. Patientshaving hematocrit values >55% require a special collection tube for coagulation studies. Please contact the laboratory at [phone] for redraw instructions.Result Comment: A hematocrit value greater than 55% may lead to inaccurate results in coagulation testing. Patients having hematocrit values >55% require a special collection tube for coagulation studies. Please contact the laboratory at [phone] for redraw instructions.Performed By: #### PP, CBC, LYTES, BUN, CREAT, LIPID ####[facility] [address] [place] [address] USASerum or plasma anion gap determinationOrdered By: Remy Olivarez on 64-92-2175Bsdmf gap [Moles/Vol]10.2 mmol/LNormal6.0-15.0[facility] Medical CenterComment on above:Performed By: #### PP, CBC, LYTES, BUN, CREAT, LIPID #### [facility] [address] [place] [address] USASerum or plasma total cholesterol/high density lipoprotein (HDL) cholesterol mass ratOrdered By: Remy Olivarez on 12-12-2024 Cholesterol.total/Cholesterol in HDL [Mass ratio]3.0 {ratio}Normal<5.0[facility] Campus Medical CenterComment on above:Result Comment: PERFORMED BY: [facility] [address] [place] [address] PATHOLOGIST [employer]ER MOHAMED M EL-FAKHARANY M.D.Performed By: #### PP, CBC, LYTES, BUN, CREAT, LIPID #### [facility] [address] [place] [address] USASodium [Moles/volume] in Serum or PlasmaOrdered By: Remy Olivarez on 99-99-1614Rvbdtp [Moles/Vol]141 mmol/IWxegcg788-383ZawchlzuuMain Campus Medical CenterComment on above:Performed By: #### PP, CBC, LYTES, BUN, CREAT, LIPID #### [facility] [address] [place] [address] USATriglyceride [Mass/volume] in Serum or PlasmaOrdered By: Remy Olivarez on 37-45-3066Hcvcninpsqnx [Mass/Vol]114 mg/dL0-149[facility] Medical CenterComment on above:TRIG ATP III CLASSIFICATIONTRIG less than 150 mg/dL NormalTRIG 150-199 mg/dL Borderline highTRIG 200-500 mg/dL High TRIG greater than 500 mg/dL Very highStandard traceable to the Center for Disease Co nrtrol and Prevention (CDC) test method.Urea nitrogen [Mass/volume] in Serum or PlasmaOrdered By: Remy Olivarez on 25-80-2696Iioe nitrogen [Mass/Vol]18 mg/dLNormal 7-25[facility] Medical CenterComment on above:Performed By: #### PP, CBC, LYTES, BUN, CREAT, LIPID #### [facility] [address] [place] [address] USAaPTT in Platelet poor plasma by Coagulation assayOrdered By: Remy Olivarez on 75-26-3652oBEK Coag (PPP) [Time]27.9 s25.1-36.5FEast Ohio Regional HospitalComment on above:A hematocrit value greater than 55% may lead to inaccurate results in coagulation testing. Patientshaving hematocrit values >55% require a special collection tube for coagulation studies. Please c ontact the laboratory at [phone] for redraw instructions.CT heart angio w/scoreon 53-57-7500YR heart angio w/scorePROM[facility]ICA [facility]FI[facility] [address] [place] [address] [place] [address] CT Scan Report Signed with Koby Patient: Nadya Rodriguez MR#: [id number] : 1955 Acct:[id number] Age/Sex: 69 / F ADM Date: 12/06/24 Loc: CT Room: Type: [facility] Attending Dr: Marii Hurst MD Copies to: [...] Mckenna M.D. 12/08/2024 12:10 PM Dictation Location: [facility] Addendum Dictated By: Aidan Mckenna II, MD Addendum Signed By: 12/08/241209 Addendum Cosigned By: DD/ /24/1210 TD/TT: 12/08/2406/24/1210 CLINICAL INDICATION: Patient Age: 69 years Patient Gender: Female Indication: Evaluation of coronary arteries for atherosclerosis or coronary anomalies TECHNIQUE: Image Acquisition: A CrowdSlinga View 128 was used for data acquisition. [...] marginal arteries. Distally p (more content not included)...NormalThe Atrium Health Physician GroupCreatinine (Bld) [Mass/Vol]Ordered By: Marii Hurst on 78-61-3540Nqxzyhwarj [Mass/Vol]Whole blood creatinine measurement0.6-1.3FEast Ohio Regional HospitalComment on above:ER/ESD physician is notified/shown all ISTAT results.Critical values may be confirmed by laboratorytesting ifdeemed necessary by ER attending doctor. ISTAT XRay CREon 67-89-9453CSWMT GFR>60.0NormalThSt. Luke's McCall Physician Group Comment on above:Result Comment: PERFORMED BY: [facility] [address] [place] [address] PATHOLOGIST [employer] NANCY ARIZMENDI M.D.Performed By: #### ISCRE ####[place] [address] [place] [address] USANo Panel InformationOrdered By: Marii Hurst on 66-36-4765Uyeydsf Estimated GFR (eGFR)> 60.0Main Campus Medical CenterWhole blood creatinine measurementOrdered By: Marii Hurst on 38-43-3149Lrexulirjv [Mass/Vol]0.7 mg/dLNormal0.6-1.3FEast Ohio Regional HospitalComment on above:ER/ESD physician is notified/shown all ISTAT results.Critical values may be confirmed by laboratorytesting ifdeemed necessary by ER attending doctor.Result Comment: ER/ESD physician is notified/shown all ISTAT results. Critical values may be confirmed by laboratory testing if deemed necessary by ER attending doctor.Performed By: #### ISCRE ####[facility] [place] [address] USANo Panel Information on 87-60-4879GLXY HealthcareNo Panel InformationOrdered By: Kerry Almanza on 90-20-5505HHFH HealthcareX-ray reportOrdered By: Nilo Hightower on 10-30-2024 Study reportPROMEDICA [facility]FIANCE [facility] [address] [place] [address] XRay Report Signed Patient: Nadya Rodriguez MR#: [id number] : 1955 Acct:[id number] Age/Sex: 69 / F ADM Date: Loc: SOXD Room: Type: REG CLI Attending Dr: Luis Cralton II, MD Copies to: Luis Carlton MD~ [...] Jr., D.OAnna Marie10/30/2024 10:47 AM Dictation Location: [place] [address] Transcribed By: [facility] 10/30/24 1047 Dictated By: Nilo Hightower Jr, DO 10/30/24 1047 Signed By: 10/30/24 1047 [facility] CenterXR hip LT min 2V(w/wo pelvis)*on 77-61-6332ZB hip LT min 2V(w/wo pelvis)*[facility] [place] [address] XRay Report Signed Patient: Nadya Rodriguez MR#: [id number] : 1955 Acct:[id number] Age/Sex: 69 / F ADM Date: 10/30/24 [place] [facility] [place]: Type: REG CLI Attending Dr: Luis Carlton II, MD [...] Jr., D.OAnna Marie10/30/2024 10:47 AM Dictation Location: [facility]-23 Transcribed By: [facility] 10/30/241046 Dictated By: Nilo Hightower Jr, DO 10/30/241046 Signed By: 10/30/24 [facility]Nav[facility] Physician GroupAlanine aminotransferase [Enzymatic activity/volume] in Serum or PlasmaOrdered By: Marii Rios on 52-40-1908XIL [Catalytic activity/Vol]Alanine aminotransferase [Enzymatic activity/volume] in Serum or Plasma7-52[facility] Campus Medical CenterAlbumin [Mass/volume] in Serum or Plasma by Bromocresol green (BCG) dye binding metho Ordered By: Marii Rios on 16-45-7885Uruzsps BCG dye [Mass/Vol]Albumin [Mass/volume] in Serum or Plasma by Bromocresol green (BCG) dye binding metho 3.5-5.7FEast Ohio Regional HospitalAlkaline phosphatase [Enzymatic activity/volume] in Serum or PlasmaOrdered By: Marii Rios on 52-51-8304GEU [Catalytic activity/Vol]Alkaline phosphatase [Enzymatic activity/volume] in Serum or Isyjrs52-936LycrygfgtMain Campus Medical CenterAspartate aminotransferase [Enzymatic activity/volume] in Serum or PlasmaOrdered By: Marii Rios on 42-81-9271QUN [Catalytic activity/Vol]Aspartate aminotransferase [Enzymatic activity/volume] in Serum or Vlczzn88-44HoukzdvnxMain Campus Medical Center Basophils Auto (Bld) [#/Vol]Ordered By: Marii Rios on 18-99-2656Vtvipxotm (Bld) [#/Vol]Automated basophil count0.0-0.2FEast [facility] Hospital Basophils/100 WBC Auto (Bld)Ordered By: Marii Rios on 36-25-1725Nbczkymki/100 WBC (Bld)Automated basophil %.[facility] Campus Medical CenterBilirubin.total [Mass/volume] in Serum or PlasmaOrdered By: Marii Rios on 08-33-9745Eolfulski [Mass/Vol]Bilirubin.total [Mass/volume] in Serum or Plasma0.3-1.0[facility] Medical CenterCMP with reflex to A1Con 89-96-5764Ekzsnqz [Mass/Vol]4.7 g/dLNormal3.5-5.7The Atrium Health Physician GroupComment on above:Performed By: #### CBC, CMP wRFX A1C #### [facility] [address] [place] [address] USAAlbumin/Globulin [Mass ratio]2.2 {ratio}NormalThe Atrium Health Physician [facility] WesleyComment on above:Performed By: #### CBC, CMP wRFX A1C #### [facility] [address] [place] [address] USAALP [Catalytic activity/Vol]86 U/THbmjzx41-596Pam At[facility] Health Physician GroupComment on above:Result Comment: PERFORMED BY: [facility] [address] [place] [address] PATHOLOGIST [employer] FORESTER NANCY ARIZMENDI M.D.Performed By: #### CBC, CMP wRFX A1C #### [facility] [address] [place] [address] USAALT [Catalytic activity/Vol]16 U/LNormal7-52The Atrium Health Physician GroupComment on above:Performed By: #### CBC, CMP wRFX A1C #### [facility] [address] [place] [id number] USAAnion gap [Moles/Vol]10.9 mmol/LNormal6.0-15.0The Atrium Health Physician GroupComment on above:Performed By: #### CBC, CMP wRFX A1C #### [facility] [address] [place] [address] USAAST [Catalytic activity/Vol]16 U/XPwmkpn10-95Pbv At[facility] Health Physician GroupComment on above:Performed By: #### CBC, CMP wRFX A1C #### [facility] [address] [place] [address] USABilirubin [Mass/Vol]0.6 mg/dLNormal0.3-1.0The At[facility] Health Physician GroupComment on above:Performed By: #### CBC, CMP wRFX A1C #### [facility] [address] [place] [address] USACalcium [Mass/Vol]9.6 mg/dLNormal8.6-10.3The Atrium Health Physician GroupComment on above:Performed By: #### CBC, CMP wRFX A1C #### [place] [address] USAChloride [Moles/Vol]106 mmol/THnfych25-554Mot At[facility] Health Physician GroupComment on above:Performed By: #### CBC, CMP wRFX A1C #### [place] [address] USACO2 [Moles/Vol]26.4 mmol/CTbghbj22.0-31.0The Atrium Health Physician GroupComment on above:Performed By: #### CBC, CMP wRFX A1C #### [place] [address] USACreatinine [Mass/Vol]0.80 mg/dLNormal0.60-1.20The Atrium Health Physician GroupComment on above:Performed By: #### CBC, CMP wRFX A1C #### [place] [address] USAGFR/1.73 sq M.predicted MDRD (S/P/Bld) [Vol rate/Area] mL/min/{1.73_m2}NormalThe Atrium Health Physician GroupComment on above:Performed By: #### CBC, CMP wRFX A1C #### [place] [address] USAGlobulin (S) [Mass/Vol]2.1 g/dLNormalThe Atrium Health Physician GroupComment on above:Performed By: #### CBC, CMP wRFX A1C #### [place] [address] USAGlucose [Mass/Vol]88 mg/wIUdjdkm11-329Uuo At[facility] Health Physician GroupComment on above:Performed By: #### CBC, CMP wRFX A1C #### [facility] [address] [place] [address] USAPotassium [Moles/Vol]4.3 mmol/LNormal3.5-5.1The Atrium Health Physician GroupComment on above:Performed By: #### CBC, CMP wRFX A1C #### [facility] [address] [place] [address] USAProtein [Mass/Vol]6.8 g/dLNormal6.4-8.9The Atrium Health Physician GroupComment on above:Performed By: #### CBC, CMP wRFX A1C #### [facility] [address] [place] [address] USASodium [Moles/Vol]139 mmol/CMiwyga643-195Kik At[facility] Health Physician GroupComment on above:Performed By: #### CBC, CMP wRFX A1C #### [facility] [address] [place] [address] USAUrea nitrogen [Mass/Vol]19 mg/dLNormal7-25The Atrium Health Physician GroupComment on above:Performed By: #### CBC, CMP wRFX A1C #### [facility] [address] [place] [address] USACalcium [Mass/volume] in Serum or PlasmaOrdered By: Marii Rios on 31-94-3498Imquzwf [Mass/Vol]Calcium [Mass/volume] in Serum or Plasma 8.6-10.3FEast Ohio Regional HospitalCarbon dioxide, total [Moles/volume] in Serum or PlasmaOrdered By: Marii Rios on 16-48-7941DV4 [Moles/Vol]Carbon dioxide, total [Moles/volume] in Serum or Tekvie53.0-31.0[facility] Campus Medical CenterChloride [Moles/volume] in Serum or PlasmaOrdered By: Marii Rios on 45-54-8274Vpszctei [Moles/Vol]Chloride [Moles/volume] in Serum or Plasma 98-107Main Campus Medical CenterComplete Blood Count Auto Diffon 95-61-4478Hqjpwquow (Bld) [#/Vol]0.1 10*3/uLNormal0.0-0.2The Atrium Health Physician GroupComment on above:Result Comment: PERFORMED BY: [place] [address] PATHOLOGIST UTILITY FORESTER NANCY ARIZMENDI M.D.Performed By: #### CBC, CMP wRFX A1C #### [place] [address] USABasophils/100 WBC (Bld)0.9 %Normal.The Atrium Health Physician GroupComment on above:Performed By: #### CBC, CMP wRFX A1C #### [place] [address] USAEosinophils (Bld) [#/Vol]0.1 10*3/uLNormal0.0-0.45The Atrium Health Physician GroupComment on above:Performed By: #### CBC, CMP wRFX A1C #### [place] [address] USAEosinophils/100 WBC (Bld)2.0 %Normal.The Atrium Health Physician GroupComment on above:Performed By: #### CBC, CMP wRFX A1C #### [place] [address] USAErythrocyte distribution width (RBC) [Ratio]15.8 %High 11.9-15.3The Atrium Health Physician GroupComment on above:Performed By: #### CBC, CMP wRFX A1C #### [place] [address] USAHematocrit (Bld) [Volume fraction]41.5 %Jnpuxj54.0-46.4The Atrium Health Physician GroupComment on above:Performed By: #### CBC, CMP wRFX A1C #### [place] [address] USAHemoglobin (Bld) [Mass/Vol]14.1 g/qCTciwyd35.8-15.4The Atrium Health Physician GroupComment on above:Performed By: #### CBC, CMP wRFX A1C #### [facility] [address] [place] [address] USALymphocytes (Bld) [#/Vol]2.4 10*3/uLNormal1.00-4.8The Atrium Health Physician GroupComment on above:Performed By: #### CBC, CMP wRFX A1C #### [place] [address] USALymphocytes/100 WBC (Bld)42.8 %Normal.The Atrium Health Physician GroupComment on above:Performed By: #### CBC, CMP wRFX A1C #### [address] (RBC) [Entitic mass]30.7 xqJsrzjo87.7-34.3The Atrium Health Physician GroupComment on above:Performed By: #### CBC, CMP wRFX A1C #### [address] (RBC) [Entitic vol]90.0 yRNpqyrl61-135New Atrium Health Physician GroupComment on above:Performed By: #### CBC, CMP wRFX A1C #### [place] [address] USAMean Corpuscular HGB Conc34.1 g/oOTohasm65.0-35.0The Atrium Health Physician GroupComment on above:Performed By: #### CBC, CMP wRFX A1C #### [place] [address] USAMonocytes (Bld) [#/Vol]0.4 10*3/uLNormal0.0-0.8The Atrium Health Physician GroupComment on above:Performed By: #### CBC, CMP wRFX A1C #### [place] [address] USAMonocytes/100 WBC (Bld)7.3 %Normal.The Atrium Health Physician GroupComment on above:Performed By: #### CBC, CMP wRFX A1C #### [place] [address] USANeutrophils (Bld) [#/Vol]2.6 10*3/uLNormal1.8-7.7The Atrium Health Physician GroupComment on above:Performed By: #### CBC, CMP wRFX A1C #### [facility] [address] [place] [address] USANeutrophils/100 WBC (Bld)47.0 %Normal.The Atrium Health Physician GroupComment on above:Performed By: #### CBC, CMP wRFX A1C #### [facility] [address] [place] [address] USANRBC%0.1 /100{WBC}Normal0-0.5The [facility] Comment on above:Performed By: #### CBC, CMP wRFX A1C #### [facility] [address] [place] [address] USAPlatelet mean volume (Bld) [Entitic vol]9.8 fLNormal 6.3-10.7The Atrium Health Physician GroupComment on above:Performed By: #### CBC, CMP wRFX A1C #### [facility] [address] [place] [address] USAPlatelets (Bld) [#/Vol]150 10*3/lTHgcfeg238-070Epr At[facility] Health Physician GroupComment on above:Performed By: #### CBC, CMP wRFX A1C #### [facility] [address] [place] [address] USARBC (Bld) [#/Vol]4.61 10*6/uLNormal3.60-5.00The At[facility] Health Physician GroupComment on above:Performed By: #### CBC, CMP wRFX A1C #### [facility] [address] [place] [address] USAWBC (Bld) [#/Vol]5.6 10*3/uLNormal3.8-11.6The Atrium Health Physician GroupComment on above:Performed By: #### CBC, CMP wRFX A1C #### [facility] [address] [place] [address] USACreatinine [Mass/volume] in Serum or PlasmaOrdered By: Marii Rios on 49-53-7111Mydljgjvtg [Mass/Vol]Creatinine [Mass/volume] in Serum or Plasma0.60-1.20[facility] Medical CenterEosinophils Auto (Bld) [#/Vol]Ordered By: Marii Rios on 67-77-9117Oyqimokbkbz (Bld) [#/Vol]Automated eosinophil count0.0-0.45[facility] Medical CenterEosinophils/100 WBC Auto (Bld)Ordered By: Marii iRos on 83-10-6342Nphviqvstqe/100 WBC (Bld) Automated eosinophil %.[facility] Medical CenterErythrocyte distribution width Auto (RBC) [Ratio]Ordered By: Marii Rios on 38-46-3785Vaahlwelvpb distribution width (RBC) [Ratio]Erythrocyte distribution width [Ratio] by Automated dnxobLeyg48.9-15.3FEast Ohio Regional HospitalGlobulin Calc (S) [Mass/Vol]Ordered By: Marii Rios on 90-26-8950Ohfhtiwu (S) [Mass/Vol]Serum globulin measurement by calculation (mass/volume)[facility] Medical CenterGlucose [Mass/volume] in Serum or PlasmaOrdered By: Marii Rios on 64-84-3221Vjoplzi [Mass/Vol]Glucose [Mass/volume] in Serum or Xqpawn55-889 [facility] Medical CenterHematocrit Auto (Bld) [Volume fraction]Ordered By: Marii Rios on 40-48-1542Gxgfvakbgk (Bld) [Volume fraction]Hematocrit [Volume Fraction] of Blood by Automated count34.0-46.4FEast Ohio Regional HospitalHemoglobin [Mass/volume] in BloodOrdered By: Marii Rios on 10-24-2024 Hemoglobin (Bld) [Mass/Vol]Hemoglobin [Mass/volume] in Blood11.8-15.4FEast Ohio Regional HospitalLeukocytes [#/volume] corrected for nucleated erythrocytes in Blood by Automated counOrdered By: Marii Rios on 83-90-7243GVT corrected for nucl RBC Auto (Bld) [#/Vol]Leukocytes [#/volume] corrected for nucleated erythrocytes in Blood by Automated coun3.8-11.6FEast Ohio Regional HospitalLymphocytes Auto (Bld) [#/Vol]Ordered By: Marii Rios on 79-30-4170Zarjfroavbr (Bld) [#/Vol]Lymphocytes [#/volume] in Blood by Automated count1.00-4.8[facility] Medical CenterLymphocytes/100 WBC Auto (Bld) Ordered By: Marii Rios on 97-60-9743Quedjhrazfl/100 WBC (Bld)Lymphocytes/100 leukocytes in Blood by Automated count.[facility] CenterH Auto (RBC) [Entitic mass]Ordered By: Marii Rios on 56-32-8340IFI (RBC) [Entitic mass]MCH [Entitic mass] by Automated count24.7-34.3FEast Ohio Regional HospitalMCHC Auto (RBC) [Mass/Vol]Ordered By: Marii Rios on 65-49-9105VRPW (RBC) [Mass/Vol]MCHC [Mass/volume] by Automated count32.0-35.0[facility] Medical CenterMCV Auto (RBC) [Entitic vol]Ordered By: Marii Rios on 10-24-2024 MCV (RBC) [Entitic vol]MCV [Entitic volume] by Automated ulyev39-349IpmyllszaMain Campus Medical CenterMonocytes Auto (Bld) [#/Vol]Ordered By: Marii Rios on 87-63-7635Zbseyjyly (Bld) [#/Vol]Automated blood monocyte count0.0-0.8[facility] Medical CenterMonocytes/100 WBC Auto (Bld)Ordered By: Marii Rios on 26-48-2171Jekjgllvv/100 WBC (Bld)Automated monocyte %.[facility] Medical CenterNeutrophils Auto (Bld) [#/Vol]Ordered By: Marii Rios on 10-24-2024 Neutrophils (Bld) [#/Vol]Neutrophils [#/volume] in Blood by Automated count 1.8-7.7FEast Ohio Regional HospitalNeutrophils/100 WBC Auto (Bld)Ordered By: Marii Rios on 17-43-5397Aemgrrynmdt/100 WBC (Bld)Automated neutrophil %. [facility] Medical CenterNo Panel InformationOrdered By: Marii Rios on 65-16-1277Lxxvphxgv GFR (CKD-EPI)> 60.0 mL/MinMain Campus Medical Center Pharmacy Creatinine Clearance (ChemN/AFEast Ohio Regional HospitalNucleated erythrocytes [Presence] in Blood by Automated countOrdered By: Marii Rios on 06-45-3121Sxnvcjpik RBC Auto Ql (Bld)Nucleated erythrocytes [Presence] in Blood by Automated count0-0.5FEast Ohio Regional HospitalPlatelet mean volume Auto (Bld) [Entitic vol]Ordered By: Marii Rios on 37-96-1614Laczsjsc mean volume (Bld) [Entitic vol]Platelet mean volume [Entitic volume] in Blood by Automated count6.3-10.7FEast Ohio Regional HospitalPlatelets Auto (Bld) [#/Vol]Ordered By: Marii Rios on 52-50-0943Skvjdcolm (Bld) [#/Vol]Platelets [#/volume] in Blood by Automated butso291-461PmeaiisxlMain Campus Medical Center Potassium [Moles/volume] in Serum or PlasmaOrdered By: Marii Rios on 65-89-0296Sagdlwknx [Moles/Vol]Potassium [Moles/volume] in Serum or Plasma 3.5-5.1FEast Ohio Regional HospitalProtein [Mass/volume] in Serum or Plasma Ordered By: Marii Rios on 90-49-0950Qeywizv [Mass/Vol]Protein [Mass/volume] in Serum or Plasma6.4-8.9[facility] Medical CenterRBC Auto (Bld) [#/Vol] Ordered By: Marii Rios on 35-33-6731KJO (Bld) [#/Vol]Erythrocytes [#/volume] in Blood by Automated count3.60-5.00[facility] Hospitalerum or plasma albumin/globulin mass ratioOrdered By: Marii Rios on 10-24-2024 Albumin/Globulin [Mass ratio]Serum or plasma albumin/globulin mass ratio Newark Hospitalerum or plasma anion gap determinationOrdered By: Marii Rios on 80-90-1534Uxnji gap [Moles/Vol]Serum or plasma anion gap determination6.0-15.0Newark Hospitalodium [Moles/volume] in Serum or PlasmaOrdered By: Marii Rios on 98-21-8222Qticva [Moles/Vol]Sodium [Moles/volume] in Serum or Uqvnnc536-112JwggefuirMain Campus Medical CenterUrea nitrogen [Mass/volume] in Serum or PlasmaOrdered By: Marii Rios on 10-24-2024 Urea nitrogen [Mass/Vol]Urea nitrogen [Mass/volume] in Serum or Plasma02-21 [facility] CenterWBC Auto (Bld) [#/Vol]Ordered By: Marii Rios on 58-31-5122UDG (Bld) [#/Vol]Leukocytes [#/volume] in Blood by Automated count 3.8-11.6FEast Ohio Regional HospitalCoding Summaryon 24-18-6139Tsaavz SummaryHTMLBase 64 StcsaoulGTw1sKi+PGhlYWQ+XY7XQTWiF02kpKIabK9dI3IERMvIMqbhJIPAGMyJXvNobtIcOC4flLMu ZXJu [file] IGN (more content not included)...NormalMccullough-Hyde Memorial Hospital HospitalX-ray reportOrdered By: Mariel Melchor on 91-52-4970Nowbj reportPROMEDICA DEFIANCE [facility] [address] [place] [address] XRay Report Signed Patient: Nadya Rodriguez MR#: [id number] : 1955 Acct:[id number] Age/Sex: 69 / F ADM Date: 5 [place] [facility]: Type: [facility] Attending Dr: Marii Rios MD Copies to: [...] Mariel Melchor M.D.10/01/2024 1:39 PM Dictation Location: [place] [address] Transcribed By: EVERARDO 10/01/24 133 Dictated By: Mariel Melchor MD 10/01/241335 Signed By: 10/01/241338 [facility] Work Phone: XR wrist min BI 3Von 11-81-3058PQ wrist min BI 3V [facility] [address] [place] [id number] XRay Report Signed Patient: Nadya Rodriguez MR#: [id number] : 1955 Acct:[id number] Age/Sex: 69 / F ADM Date: 10/01/24 [place] [facility] [place]: Type: [facility] Attending Dr: Marii Rios MD Copies to: [...] Mariel Melchor M.D.10/01/2024 1:39 PM Dictation Location: [place] [address] Transcribed By: EVERARDO 10/01/24 133 Dictated By: Mariel Melchor MD 10/01/24 1336 Signed By: 10/01/24 1339[facility] Physician GroupInfluenza virus B Ag [Presence] in Upper respiratory specimen by Rapid immunoassayon 13-18-7525OJWVU Ag IA.rapid Ql (Nph)Influenza virus B Ag [Presence] in Upper respiratory specimen by Rapid immunoassayMain Campus Medical CenterNo Panel Informationon 09-14-2024 Influenza Type A (Rapid)PositiveMain Campus Medical CenterPO SARS CoV-2 AntigenNegativeMain Campus Medical CenterCT CARDIAC SCORING WO IV CONTRASTon 09-17-8398UE CARDIAC SCORING WO IV CONTRASTInterpreted By: Roscoe Lau, ADDENDUM: Technical: The following [...] AM -------- ORIGINAL REPORT -------- Dictation workstation: [id number] Interpreted By: Roscoe Trejo, STUDY: CT CARDIAC SCORING WO IV CONTRAST; 08/26/2024 4:27 pm INDICATION: Signs/Symptoms:hypertension. COMPARISON: None. ACCESSION NUMBER(S): [id number] ORDERING CLINICIAN: INTERFACE UNSPECIFIELDPROVIDER TECHNIQUE: Using prospective [...] increased >800 Floyd et al. JCCT 2016 (http://dx.doi.org/10.1016/j.jcct.2016.11.003) KAY Percentile In general, greater than 75th [...] Calcification can be calcuate using link below https://www.kay-nhlbi.org/MESACHDRisk/MesaRiskScore/RiskScore.aspx Andrea herman al. JACC 2015 (http://dx.doi.org/10.1016/j.j acc.2015.08.035) Reading Event Marketing Intern: Dr. Roscoe Trejo, Date: 08/27/2024 8:24 am Signed by: Roscoe Trejo 08/27/2024 8:24 AM Dictation workstation: [id number] Orrville HospitalAmphetamine Screen Ql (U)Ordered By: Nazario Blue on 55-69-0207Ugonknjsvgyd Ql (U)NegativeNegKettering Health SpringfieldBarbiturates [Presence] in Urine by Screen methodOrdered By: Imkhanh Asaad on 70-46-3665Yojycgmdwvep Screen Ql (U)NegativeNegKettering Health SpringfieldBenzodiazepines Screen Ql (U)Ordered By: Imkhanh Asaad on 10-58-6889Dcbzttskrlswqls Ql (U)NegativeNegCincinnati Shriners HospitalBenzoylecgonine [Presence] in Urine by Screen methodOrdered By: Nazario Blue on 65-99-3974Trwlwvxpraisddh Screen Ql (U)Negative [facility] HospitalCannabinoids [Presence] in Urine by Screen methodOrdered By: Imkhanh Blue on 12-60-6173Aitnczqdgatl Screen Ql (U) PositiveHighNegativeMain Campus Medical CenterComment on above:These are unconfirmed results and should not be used for legal purposes. Drug Cut-Off Concentration: AMPH 1000 ng/mL SONIDO 200 ng/mL MICHELLE 200 ng/mL COCM 300 ng/mL OP 300 ng/mL PCP 25 ng/mL THC 20 ng/mLOpiates [Presence] in Urine by Screen method Ordered By: Imkhanh Blue on 91-57-1959Ldrtklt Screen Ql (U)NegativeNegative [facility] Medical CenterPhencyclidine Screen Ql (U)Ordered By: Imkhanh Blue on 35-87-2742Sznshbcpksasj Ql (U)NegativeNegativeMain Campus Medical CenterMM TOMOSYNTHESIS SCREENING BIon 19-74-4116[place], [place] [address] Mammography Report Signed Patient: NADYA RODRIGUEZ MR#: [id number] : 1955 Acct:[id number] Age/Sex: 68 / F ADM Date: 11/29/23 Loc: MAMMO Attending Dr: Shaikh Maude Ellsworth Ordering Physician: Shaikh Jodee Santoro Results: Date of Service: 11/29/23 Follow Up: Procedure(s): MM tomosynthesis screening BI Accession Number(s): [id number] cc: Shaikh Jodee Santoro Patient Name: NADYA RODRIGUEZ MR#: [id number] : 1955 Exam Date: 11/29/2023 Ordering Doctor: Shaikh Rosa Santoro . RADIOLOGY REPORT PROCEDURE: MM TOMOSYNTHESIS SCREENING BI COMPARISON: MG MAMM SCREEN 3D ARCHIE CAD, 10/27/2022. INDICATIONS: screening Calculator Name NCI Breast Cancer Risk Assessment Tool 5 Year Breast Cancer Risk 1.30% Lifetime Breast Cancer Risk 4.80% Personal Breast Cancer No Personal Ovarian Cancer No Treatments None Family Cancers None LOCATION: [facility] BREAST COMPOSITION: The breasts are heterogeneously dense,which [...] BIOPSIED. Dictated by: Hollie Loving MD on 11/29/2023 at 11:24 Approved by: Hollie Loving MD on 11/29/2023 at 11:25 Dictated By: Hollie Loving M.D. Signed By: 11/29/23 1126 DD/ 1125 TD/TT: Rn Prior Authorization:TBHRadiology, Radiologist, - 11/29/2023 [place] [address] Mammography Report Signed Patient: NADYA RODRIGUEZ MR#: [id number] : 1955 Acct:[id number] Age/Sex: 68 / F ADM Date: 11/29/23 Loc: MAMMO Attending Dr: Shaikh Maude Ellsworth Ordering Physician: Shaikh Jodee Santoro Results: Date of Service: 11/29/23 Follow Up: Procedure(s): MM tomosynthesis screening BI Accession Number(s): [id number] cc: Shaikh Jodee Santoro Patient Name: NADYA RODRIGUEZ MR#: [id number] : 1955 Exam Date: 11/29/2023 Ordering Doctor: Shaikh Rosa Thrasher RADIOLOGY REPORT PROCEDURE: MM TOMOSYNTHESIS SCREENING BI COMPARISON: MG MAMM SCREEN 3D ARCHIE CAD, 10/27/2022. INDICATIONS: screening Calculator Name NCI Breast Cancer Risk Assessment Tool 5 Year Breast Cancer Risk 1.30% Lifetime Breast Cancer Risk 4.80% Personal Breast Cancer No Personal Ovarian Cancer No Treatments None Family Cancers None LOCATION: [facility] BREAST COMPOSITION: The breasts are heterogeneously dense,which [...] BIOPSIED. Dictated by: Hollie Loving MD on 11/29/2023 at 11:24 Approved by: Hollie Loving MD on 11/29/2023 at 11:25 Dictated By: Hollie Loving M.D. Signed By: 11/29/23 1126 DD/ 1125 TD/TT: Rn Prior Authorization: [facility] HospitalRadiology Study observation (narrative)[facility] TOMOSYNTHESIS SCREENING BIOrdered By: Radiologist Radiology on 54-31-9984ESCF [employer] Work Phone: amphetamine Screen Ql (U)Ordered By: Jose Martin Nieves on 16-80-1702Klypgqgpffpn Ql (U)NegativeNegKettering Health SpringfieldBarbiturates [Presence] in Urine by Screen methodOrdered By: Jose Martin Nieves on 48-20-2365Mncyotwbevlt Screen Ql (U)NegativeNegKettering Health SpringfieldBenzodiazepines Screen Ql (U)Ordered By: Jose Martin Nieves on 20-51-5960Novgxadbnofqauc Ql (U)NegativeNegKettering Health SpringfieldBenzoylecgonine [Presence] in Urine by Screen methodOrdered By: Jose Martin Nieves on 83-35-6154Einyzkzeyookfpe Screen Ql (U)NegativeNegCincinnati Shriners HospitalCannabinoids [Presence] in Urine by Screen methodOrdered By: Jose Martin Nieves on 15-33-5370Dhxrwcmrbibr Screen Ql (U) NegativeNegKettering Health SpringfieldComment on above:These are unconfirmed results and should not be used for legal purposes. Drug Cut-Off Concentration: AMPH 1000 ng/mL SONIDO 200 ng/mL MICHELLE 200 ng/mL COCM 300 ng/mL OP 300 ng/mL PCP 25 ng/mL THC 20 ng/mLOpiates [Presence] in Urine by Screen method Ordered By: Jose Martin Nieves on 88-70-8271Irolkhd Screen Ql (U)NegativeNegative [facility] CenterPhencyclidine Screen Ql (U)Ordered By: Jose Martin Nieves on 45-27-5343Sdsqbdqgdwwhn Ql (U)NegativeNegativeMain Campus Medical CenterAnisocytosis LM Ql (Bld)Ordered By: Luis Carlton on 39-06-8898Vzlsjtqbtvuo Ql (Bld)SlightMain Campus Medical CenterAutomated erythrocytes count in urine sediment (number/area)Ordered By: Luis Carlton on 92-46-0778VKZ Auto (Urine sed) [#/Area]0-1 [HPF]0-4FEast Ohio Regional HospitalAutomated leukocytes count in urine sediment (number/area)Ordered By: Luis Carlton on 93-59-8131DIN Auto (Urine sed) [#/Area]3-4 [HPF]0-4FEast Ohio Regional HospitalBasophils Auto (Bld) [#/Vol]Ordered By: Luis Carlton on 70-23-1544Nnwxvkovy (Bld) [#/Vol]0.0 10*3/uL0.0-0.2FEast Ohio Regional HospitalBasophils/100 WBC Auto (Bld)Ordered By: Luis Carlton on 10-10-2023 Basophils/100 WBC (Bld)0.6 %.[facility] Medical CenterBilirubin Test strip Ql (U)Ordered By: Luis Carlton on 01-97-1040Metvnynmz Ql (U)Negative NegativeMain Campus Medical CenterCalcium [Mass/volume] in Serum or PlasmaOrdered By: Luis Carlton on 39-62-5534Xmbukre [Mass/Vol]10.0 mg/dL 8.6-10.3FEast Ohio Regional HospitalCarbon dioxide, total [Moles/volume] in Serum or PlasmaOrdered By: Luis Carlton on 56-97-7837ZI8 [Moles/Vol]26.0 mmol/L21.0-31.0[facility] Medical CenterChloride [Moles/volume] in Serum or PlasmaOrdered By: Luis Carlton on 07-64-4269Fmnyrkmd [Moles/Vol]105 mmol/S24-861CsyfufbruMain Campus Medical CenterColor Auto (U)Ordered By: Luis Carlton on 94-12-2454Ayzhb (U)YellowYellowMain Campus Medical Center Creatinine [Mass/volume] in Serum or PlasmaOrdered By: Luis Carlton on 31-09-1571Idloxsvfyj [Mass/Vol]0.65 mg/dL0.60-1.20[facility] Medical CenterEosinophils Auto (Bld) [#/Vol]Ordered By: Luis Carlton on 10-10-2023 Eosinophils (Bld) [#/Vol]0.1 10*3/uL0.0-0.45[facility] Eosinophils/100 WBC Auto (Bld)Ordered By: Luis Carlton on 10-10-2023 Eosinophils/100 WBC (Bld)1.5 %.[facility] CenterErythrocyte distribution width Auto (RBC) [Ratio]Ordered By: Luis Carlton on 10-10-2023 Erythrocyte distribution width (RBC) [Ratio]14.3 %11.9-15.3FEast Ohio Regional HospitalFructosamine [Moles/volume] in Serum or PlasmaOrdered By: Luis Carlton on [id number] [Moles/Vol]213 umol/L0-285[facility] CenterComment on above:Published reference interval for apparently healthysubjects between age 20 and 60 is 205 - 285 umol/L and in apoorly controlled diabetic population is 228 - 563 umol/Lwith a mean of 396 umol/L.Performed at: [facility] Lab[address] [id number] Director: Zia Rome PhD, Phone: [phone] [Mass/volume] in Serum or PlasmaOrdered By: Luis Carlton on 46-73-1360Xfregls [Mass/Vol]73 mg/kH51-617ZqyofjvepMain Campus Medical CenterComment on above:ADA recommended reference rangeRandom Glucose Reference Range is dependent on time and content of last meal. Glucose of more than 200 mg/dL in a nonstressed, ambulatory subject supports the diagnosisof Diabetes Mellitus.Hematocrit Auto (Bld) [Volume fraction]Ordered By: Luis Carlton on 75-79-0766Borewhxthz (Bld) [Volume fraction]39.9 %34.0-46.4FEast Ohio Regional HospitalHemoglobin [Mass/volume] in BloodOrdered By: Luis Carlton on 14-11-5625Youlixfsiu (Bld) [Mass/Vol]13.3 g/dL11.8-15.4FEast [place] Regional HospitalKetones Auto test strip (U) [Mass/Vol]Ordered By: Luis Carlton on 84-98-4923Kfbbrfr (U) [Mass/Vol]NegativeNegativeMain Campus Medical CenterLaboratory - UrinalysisOrdered By: Luis Carlton on 02-16-3031Svcqhvf casts LM Ql (Urine sed)0-8 [LPF]0-8[facility] Medical CenterLeukocytes [#/volume] corrected for nucleated erythrocytes in Blood by Automated counOrdered By: Luis Carlton on 35-03-3156KRX corrected for nucl RBC Auto (Bld) [#/Vol]6.1 10*3/uL 3.8-11.6FEast [place] Regional HospitalLymphocytes Auto (Bld) [#/Vol]Ordered By: Luis Carlton on 56-42-2431Latbsmnnceu (Bld) [#/Vol]2.0 10*3/uL1.00-4.8 [facility] CenterLymphocytes/100 WBC Auto (Bld)Ordered By: Luis Carlton on 26-77-2976Ojhtezuazjp/100 WBC (Bld)32.5 %.[facility] Auto (RBC) [Entitic mass]Ordered By: Luis Carlton on 76-85-7733IWQ (RBC) [Entitic mass]30.9 pg24.7-34.3FEast [place] Regional HospitalMCHC Auto (RBC) [Mass/Vol]Ordered By: Luis Carlton on 71-60-5289QEEO (RBC) [Mass/Vol]33.3 g/dL32.0-35.0[facility] Medical CenterMCV Auto (RBC) [Entitic vol]Ordered By: Luis Carlton on 98-59-8317CVE (RBC) [Entitic vol]92.9 tP48-547XkjutsvsgMain Campus Medical CenterMicrocytes LM Ql (Bld)Ordered By: Luis Carlton on 98-83-3371Ewzdodidcu Ql (Bld)SlightMain Campus Medical CenterMonocytes Auto (Bld) [#/Vol]Ordered By: Luis Carlton on 20-85-7999Xyvqkuwnf (Bld) [#/Vol]0.4 10*3/uL0.0-0.8[facility] CenterMonocytes/100 WBC Auto (Bld)Ordered By: Luis Carlton on 10-10-2023 Monocytes/100 WBC (Bld)6.3 %.[facility] Medical CenterNeutrophils Auto (Bld) [#/Vol]Ordered By: Luis Carlton on 34-67-6840Nwmjpuiajwi (Bld) [#/Vol] 3.6 10*3/uL1.8-7.7FEast Ohio Regional HospitalNeutrophils/100 WBC Auto (Bld)Ordered By: Luis Carlton on 88-06-1174Zxctvhynija/100 WBC (Bld)59.1 %. [facility] Medical CenterNitrite Test strip Ql (U)Ordered By: Luis Carlton on 38-18-2028Mbqholx Ql (U)NegativeNegativeMain Campus Medical CenterNo Panel InformationOrdered By: Luis Carlton on 39-31-8637Rqkjwootl GFR (CKD-EPI)> 60.0 mL/MinMain Campus Medical CenterPharmacy Creatinine Clearance (ChemN/[facility] ColumbusNucleated erythrocytes [Presence] in Blood by Automated countOrdered By: Luis Carlton on 10-10-2023 Nucleated RBC Auto Ql (Bld)0.1 /100{WBC}0-0.5FEast [facility] Hospital Platelet adequacy [Presence] in Blood by Light microscopyOrdered By: Luis Carlton on 81-35-0422Tubxwaywj LM Ql (Bld)NormalNormalMain Campus Medical CenterPlatelet mean volume Auto (Bld) [Entitic vol]Ordered By: Luis Carlton on 25-29-2354Aowchgke mean volume (Bld) [Entitic vol]10.3 fL6.3-10.7 [facility] CenterPlatelet morphology finding [Identifier] in BloodOrdered By: Luis Carlton on 37-70-6967Wdkzuycw morphology finding Nom (Bld)NormalNormalMain Campus Medical CenterPlatelets Auto (Bld) [#/Vol] Ordered By: Luis Carlton on 02-44-6131Vdavymsie (Bld) [#/Vol]234 10*3/uL 150-450[facility] CenterPotassium [Moles/volume] in Serum or PlasmaOrdered By: Luis Carlton on 57-39-5217Ihrmyvlsa [Moles/Vol]4.2 mmol/L 3.5-5.1FEast Ohio Regional HospitalProtein Auto test strip (U) [Mass/Vol] Ordered By: Luis Carlton on 65-38-2161Ixmuals (U) [Mass/Vol]NegativeNegative [facility] CenterRBC Auto (Bld) [#/Vol]Ordered By: Luis Carlton on 10-14-1604DHY (Bld) [#/Vol]4.29 10*6/uL3.60-5.00[facility] CenterRBC morphologyOrdered By: Luis Carlton on 83-98-5432MZR morphology finding Nom (Bld)N/AFKing's Daughters Medical Center Ohioerum or plasma anion gap determinationOrdered By: Luis Carlton on 27-65-0198Ddqpg gap [Moles/Vol]13.2 mmol/L6.0-15.0Newark Hospitalodium [Moles/volume] in Serum or PlasmaOrdered By: Luis Carlton on 06-64-6373Aiqgmv [Moles/Vol]140 mmol/F893-051PdmgfnybpNewark Hospitalpecific gravity Auto test strip (U) [Rel density]Ordered By: Luis Carlton on 10-10-2023 Specific gravity (U) [Rel density]1.0121.001-1.030Newark Hospitalquamous epithelial cells detection in urine sediment by light microscopy Ordered By: Luis Carlton on 67-93-9889Zmvcbkytak cells.squamous LM Ql (Urine sed)0-1 [HPF]0-2FEast Ohio Regional HospitalUrea nitrogen [Mass/volume] in Serum or PlasmaOrdered By: Luis Carlton on 80-01-9125Adrx nitrogen [Mass/Vol] 14 mg/dL7-25Main [facility] Medical CenterUrine bacteria detection by automated methodOrdered By: Luis Carlton on 98-78-6368Ltajqyim Auto Ql (U) None seenNone SeenMain Campus Medical CenterUrine clarity by refractometry automatedOrdered By: Luis Carlton on 04-81-6345Mavlhei Refractometry automated (U)ClearClePremier Health Atrium Medical CenterUrine glucose measurement by automated test strip (mass/volume)Ordered By: Luis Carlton on 49-74-8589Ysqgjmo Auto test strip (U) [Mass/Vol]Normal mg/dLNoLancaster Municipal HospitalUrine hemoglobin detection by automated test stripOrdered By: Luis Carlton on 31-67-1334Uezzdbpmtw Auto test strip Ql (U) NegativeNegativeMain Campus Medical CenterUrine leukocyte esterase detection by automated test stripOrdered By: Luis Carlton on 10-10-2023 Leukocyte esterase Auto test strip Ql (U)2+NegativeMain Campus Medical CenterUrobilinogen Auto test strip (U) [Mass/Vol]Ordered By: Luis Carlton on 39-04-2901Qbckdksopknq (U) [Mass/Vol]Normal mg/dLHolmes County Joel Pomerene Memorial HospitalWBC Auto (Bld) [#/Vol]Ordered By: Luis Carlton on 10-67-4268LIK (Bld) [#/Vol]6.1 10*3/uL3.8-11.6FEast Ohio Regional HospitalpH Auto test strip (U)Ordered By: Luis Carlton on 21-18-1546bC (U)5.5 [pH]5.0-9.0[facility] CenterAlbumin [Mass/volume] in Serum or Plasma by Bromocresol green (BCG) dye binding methoOrdered By: Luis Carlton on 94-23-5458Fkbpkmo BCG dye [Mass/Vol]4.5 g/dL3.5-5.7FEast Ohio Regional HospitalCotinine [Mass/volume] in Serum or PlasmaOrdered By: Luis Carlton on 09-26-2023 Cotinine [Mass/Vol]<1.0 ng/mL.[facility] Medical CenterComment on above: This test was developed and its performance characteristicsdetermined by [employer]. It has not been cleared orapproved by the Food and Drug Administration.Cotinine levels greater than 20.0 are consistent with theuse of tobacco or tobacco cessation products.Performed at: [address] [place], [place] [id number] Director: Vania Mendoza MD, Phone: [phone] mean value [Mass/volume] in Blood Estimated from glycated hemoglobinOrdered By: Luis Carlton on 47-43-4939Vxvseok glucose Estimated from glycated hemoglobin (Bld) [Mass/Vol]105 mg/dLMain Campus Medical CenterHemoglobin A1c percentageOrdered By: Luis Carlton on 91-17-9829UkF6n (Bld) [Mass fraction]5.3 %4.3-5.6FEast Ohio Regional HospitalComment on above:Increased risk for diabetes: 5.7 - 6.4diabetes: >6.4glycemic control for adults with diabetes: <7.0Hemoglobin [Mass/volume] in BloodOrdered By: Luis Carlton on 34-30-6202Fgxzsdlgup (Bld) [Mass/Vol]13.1 g/dL11.8-15.4FEast [facility] Regional HospitalNicotine [Mass/volume] in Serum or PlasmaOrdered By: Luis Carlton on 19-45-4096Cjgeectf [Mass/Vol]<1.0 ng/mL.[facility] Medical CenterComment on above:This test was developed and its performance characteristicsdetermined by [facility]. It has not been cleared orapproved by the Food and Drug Administration.Nicotine levels greater than 2.0 are consistent with theuse of tobacco or tobacco cessation products.Vitamin D+Metabolites [Mass/volume] in Serum or PlasmaOrdered By: Luis Carlton on 21-95-7438Wainxbz D+Metabolites [Mass/Vol]20.9 ng/xY76-143CwjlxlrxzMain Campus Medical Center Comment on above:VITAMIN D STATUS 25(OH)VITAMIN D RANGE (ng/mL) Deficient <20 Insufficient 20 to <81Tqrxeauxrm33 to 100Reference: Francis SHIN,Brittnee NOE, Alana ATKINSON, et al. Evaluation,treatment, and prevention of vitamin D deficiency; an Endocrine Society clinical practice guideline. JCEM. 2010; 96 (7):1911-30.Wound methicillin resistant Staphylococcus aureus (MRSA) culture Ordered By: Luis Carlton on 80-60-5650XAPB isol Org specific cx Ql (Unsp spec)[facility] Medical CenterALL CBC WITH AUTO DIFFon 08-28-2023 BASOPHILS ABSOLUTE AUTO0.0NOMS HealthcareBasophils/100 WBC (Bld)0.6 %0.2 - 2.0 % NOM[facility] HealthcareEosinophils/100 WBC (Bld)1.6 %0.9 - 7.0 %[facility] Erythrocyte distribution width (RBC) [Ratio]13.8 %11.0 - 15.0 %[facility] Hematocrit (Bld) [Volume fraction]41.0 %36.0 - 48.0 %[facility]OM[facility] HealthcareHemoglobin (Bld) [Mass/Vol]13.1 g/dL12.0 - 16.0 g/dLNOMS HealthcareIMMATURE GRANULOCYTES ABS AUTO0.01NOMS HealthcareImmature granulocytes/100 WBC (Bld)0.2 %0.0 - 0.5 % NOMS HealthcareLYMPHOCYTES ABSOLUTE AUTO2.2NOMS HealthcareLymphocytes/100 WBC (Bld)43.6 %20.5 - 60.0 %NOMS HealthcareMCH (RBC) [Entitic mass]31.0 pg26.7 - 34.0 pgNOMS HealthcareMCHC (RBC) [Mass/Vol]32.0 g/dL29.9 - 35.2 g/dLNOMS HealthcareMCV (RBC) [Entitic vol]96.9 fL81.0 - 99.0 fLNONV HealthcareMONOCYTES ABSOLUTE AUTO0.4NOMS HealthcareMonocytes/100 WBC (Bld)7.6 %1.7 - 12.0 %NOMS HealthcareNEUTROPHILS ABSOLUTE AUTO2.3NOMS HealthcareNeutrophils/100 WBC (Bld) 46.4 %43.0 - 75.0 %NOMS HealthcarePlatelet mean volume (Bld) [Entitic vol]11.4 fL9.5 - 13.5 fLNOMS HealthcareTBH EO #0.1NOMS HealthcareTBH ANX917QGLQ HealthcareTBH RBC4.23NOMS HealthcareTBH WBC5.0NOMS HealthcareCLINISYNCNOMS HealthcareALL LIPID PROFILE (FASTING)on 72-81-3875XCVS HDL RATIO3.5NONV HealthcareComment on above:3.3 - 4.4 LOW RISK 4.4 - 7.1 AVERAGE RISK 7.1 - 11.0 MODERATE RISK >11.0 HIGH RISK Cholesterol [Mass/Vol]258 mg/dLHighNINF - 200 mg/dLNONV HealthcareCholesterol in HDL [Mass/Vol]74 mg/jWIvho34 - 60 mg/dLNONV HealthcareComment on above:> or =60 mg/dl - LOW CARDIOVASCULAR RISK <40 mg/dl - HIGH CARDIOVASCULAR RISK Magnesium [Mass/Vol]162.0 mg/dLNONV HealthcareComment on above:<100 mg/dl OPTIMAL 100-129 mg/dl NEAR OR ABOVE OPTIMAL 130-159 mg/dl BORDERLINE HIGH 160-189 mg/dl HIGH >190 mg/dl VERY HIGH Magnesium [Mass/Vol]22.8 mg/dLNONV HealthcareTriglyceride [Mass/Vol]114 mg/dL NINF - 150 mg/dLNONV HealthcareCCF CMP (CMP) (FOR REMOTE [facility] USE)on 08-28-2023 Albumin [Mass/Vol]4.1 g/dL3.4 - 5.0 g/dLNOEllett Memorial HospitalALBUMIN GLOBULIN RATIO1.3 NOMS HealthcareALP [Catalytic activity/Vol]81 U/L46 - 116 U/LNOMS HealthcareALT [Catalytic activity/Vol]26 U/L14 - 59 U/LNOMS HealthcareAnion gap [Moles/Vol] 13.0 mmol/LNOMS HealthcareAST [Catalytic activity/Vol]14 U/LLow15 - 37 U/LNOMS HealthcareBilirubin [Mass/Vol]0.6 mg/dL0.2 - 1.0 mg/dLNONV HealthcareCalcium [Mass/Vol]9.1 mg/dL8.5 - 10.1 mg/dLNONV HealthcareChloride [Moles/Vol]105 mmol/L 98 - 107 mmol/LNOMS HealthcareCO2 [Moles/Vol]26.2 mmol/L21.0 - 32.0 mmol/LNOMS HealthcareCreatinine [Mass/Vol]0.74 mg/dL0.55 - 1.02 mg/dLNOEllett Memorial Hospital GFR/1.73 sq M.predicted CKD-EPI (S/P/Bld) [Vol rate/Area]>6060 - PINFNOMS HealthcareGlobulin (S) [Mass/Vol]3.1 g/dLNOMS HealthcareGlucose [Mass/Vol]93 mg/dL74 - 106 mg/dLNONV HealthcarePotassium [Moles/Vol]4.2 mmol/L3.5 - 5.1 mmol/LNOMS HealthcareProtein [Mass/Vol]7.2 g/dL6.4 - 8.2 g/dLNOMS Healthcare Sodium [Moles/Vol]140 mmol/L136 - 145 mmol/LNOMS HealthcareTBH EGFR-NON AF BURKINAN>6060 - PINFNOMS HealthcareUrea nitrogen [Mass/Vol]19.0 mg/dLHigh7.0 - 18.0 mg/dLNONV HealthcareUrea nitrogen/Creatinine [Mass ratio]25.7 mg/mgNOMS HealthcareCCF FERRITINon 28-16-3173Zvzvbjoa [Mass/Vol]331.0 ng/mLHigh8.0 - 252.0 ng/mLNOMS HealthcareInterpretation and review of laboratory resultsAbnormalNONV HealthcareCCF VITAMIN B12on 97-49-0122Jpfgickep (Vitamin B12) [Mass/Vol]350.0 pg/mL193.0 - 986.0 pg/mLNOMS HealthcareCT LUNG SCREENING LOW DOSEon 08-28-[address] [address] [address] Scan Report Signed Patient: NADYA RODRIGUEZ MR#: [id number] : 1955 Acct:[id number] Age/Sex: 68 / F ADM Date: 08/28/23 Loc: CT Attending Dr: Shaikh Maude Ellsworth Ordering Physician: Shaikh Jodee Santoro Date of Service: 08/28/23 Procedure(s): CT lung screening low-dose Accession Number(s): [id number] cc: Shaikh Jodee Santoro [address] [address] Patient Name: NADYA RODRIGUEZ MRN: [id number] date: 1955 Sex: F Assigned Patient Location: CT Current Patient Location: CT Accession/Order Number: [id number] Exam Date: 08/28/2023 09:50 Report Date: 08/28/2023 [...] months. Electronically authenticated by: HOLLIE LOVING Date: 08/28/2023 10:21 Dictated By: Hollie Loving M.D. Signed By: 08/28/23 1024 DD/ 1021 TD/TT: Rn Prior Authorization:TBHRadiology, Radiologist, - 08/28/2023 [place] [address] CT Scan Report Signed Patient: NADYA RODRIGUEZ MR#: [id number] : 1955 Acct:[id number] Age/Sex: 68 / F ADM Date: 08/28/23 Loc: CT Attending Dr: Shaikh Maude Ellsworth Ordering Physician: Shaikh Jodee Santoro Date of Service: 08/28/23 Procedure(s): CT lung screening low-dose Accession Number(s): [id number] cc: Shaikh Jodee Santoro [place] [id number] Patient Name: NADYA RODRIGUEZ MRN: [id number] date: 1955 Sex: F Assigned Patient Location: CT Current Patient Location: CT Accession/Order Number: [id number] Exam Date: 08/28/2023 09:50 Report Date: 08/28/2023 [...] months. Electronically authenticated by: HOLLIE LOVING Date: 08/28/2023 10:21 Dictated By: Hollie Loving M.D. Signed By: 08/28/23 1024 DD/ 1021 TD/TT: Rn Prior Authorization: [facility] HealthcareRadiology Study observation (narrative)[facility] HealthcareCT LUNG SCREENING LOW DOSEOrdered By: Radiologist Radiology on 88-11-3226[facility] Work Phone: No [facility] Informationon 51-92-9403ZMLNOKUAAFEBO HealthcareInterpretation and review of laboratory resultsAbnormRoxborough Memorial Hospital CLINISYNCNONV HealthcareXR shoulder LT min 2V*on 75-37-4686YQ shoulder LT min 2V*[facility] [employer] Other XR shoulder LT min 2V*[facility] Spl[employer].FM Other XR shoulder LT min 2V*[address] [facility] Spl[employer]FM Other XR shoulder LT min 2V*[place], [place] [address]Wlhgb Splash.FM Other XR shoulder LT min 2V*[facility] Spl[employer].FM Other XR shoulder LT min 2V*[facility] Spl[employer].FM Other XR shoulder LT min 2V*Patient: Nadya Rodriguez MR#: [id number] [employer] Other XR shoulder LT min 2V*[address] [place] [address] [employer]FM Other XR shoulder LT min 2V*: 1955 Acct:[id number] [employer] Other XR shoulder LT min 2V*Age/Sex: 68 / F ADM Date: 07/13/23[place] [employer] Other XR shoulder LT min 2V*[place] [facility] [place] Type[facility]EC AB Other XR shoulder LT min 2V*Attending Dr: Luis Carlton II NHREGISTRAT-MAPI [employer]ash.FM Other XR shoulder LT min 2V*Copies to: Luis Carlton MD [employer] Other XR shoulder LT min 2V*Ordering Provider: Luis Carlton MDAffinergy Splash.FM Other XR shoulder LT min 2V*Date of Service: 07/13/23[place] [employer]FM Other XR shoulder LT min 2V* XR/XR shoulder LT min 2V*: PAINAtwood Splash.FM Other XR shoulder LT min 2V*3 views LEFT shoulder plain film [employer] Other XR shoulder LT min 2V*HISTORY: Generalized LEFT shoulder pain for weeksAtwood Splash.FM Other XR shoulder LT min 2V*COMPARISON: [facility] Splash.FM Other XR shoulder LT min 2V*ACUTE FINDINGS: [facility]lett Memorial HospitalGlyde Other XR shoulder LT min 2V*DEGENERATIVE CHANGE: Spurring of acromioclavicular joint and glenohumeral joint. Adequate jointAtwood Splash.FM Other XR shoulder LT min 2V*space.[employer] Other XR shoulder LT min 2V*SOFT TISSUE FINDINGS: UnremarkableAtwood Splash.FM Other XR shoulder LT min 2V*JOINT EFFUSION: [facility] CenterSavaJe Technologies Other XR shoulder LT min 2V*POSTOP CHANGES: [employer] Other XR shoulder LT min 2V*BONY MINERALIZATION: Adequate SEEC AB Other XR shoulder LT min 2V* XR/XR shoulder LT min 2V*[employer] Other XR shoulder LT min 2V*IMPRESSION: Degenerative change. [employer] Other XR shoulder LT min 2V*Impression dictated by: Angel Luis King M.D.07/13/2023 2:02 [facility] Spl[employer]FM Other XR shoulder LT min 2V*Dictation Location: [place] [address] [employer]EC AB Other XR shoulder LT min 2V*Transcribed By: EVERARDO 07/13/23 1402[place] Spl[employer].FM Other XR shoulder LT min 2V*Dictated By: Angel Luis King DO 07/13/23 140REGISTRAT-MAPILifecare [facility]al [facility] [employer] Other XR shoulder LT min 2V*Signed By:SEEC AB Other XR shoulder LT min 2V*07/13/23 140SEEC AB Other LIPID PROFILEon 94-70-6326RJWB-HDL RATIO NORMSEE BELOW NormalThe [facility] CampusComment on above:Result Comment: 3.3 - 4.4 LOW RISK 4.4 - 7.1 AVERAGE RISK 7.1 - 11.0 MODERATE RISK >11.0 HIGH RISKPerformed By: #### LIPID, LIVER #### [facility] [address] [address] [address] Favio Pulliamesterol [Mass/Vol]168 mg/dLNormal<=200The [facility] Comment on above:Performed By: #### LIPID, LIVER #### [facility] [address] [address] [address] Favio Pulliamesterol in HDL [Mass/Vol]61 mg/dLCritically ckxy25-44VipOhio State Harding HospitalComment on above:Performed By: #### LIPID, LIVER #### [facility] [address] [address] [address] Favio CuetoCholesterol in LDL [Mass/Vol]91.4 mg/dLNormalThCleveland Clinic South Pointe HospitalComment on above:Performed By: #### LIPID, LIVER #### [facility] [address] [address] [address] Favio Cooper.total/Cholesterol in HDL [Mass ratio]2.8 {ratio} NormalOhio State Harding HospitalComment on above:Performed By: #### LIPID, LIVER #### [facility] [address] [address] [address] Favio Oconnell NORMAL> or = 60 mg/dl - LOW CARDIOVASCULAR RISK <40 mg/dl - HIGH CARDIOVASCULAR RISKNoDelaware County HospitalComment on above:Performed By: #### LIPID, LIVER #### [facility] [address] [place] [address] Dr. Favio Villasenor CALC NORMALSEE BELOWCincinnati VA Medical CenterComment on above:Result Comment: <100 mg/dl OPTIMAL 100 - 129 mg/dl NEAR OR ABOVE OPTIMAL 130 - 159 mg/dl BORDERLINE HIGH 160 - 189 mg/dl HIGH >190 mg/dl VERY HIGH Performed By: #### LIPID, LIVER #### [facility] [address] [place] [address] Dr. Favio CuetoTriglyceride [Mass/Vol]78 mg/dLNormal<=150The [facility] Comment on above:Performed By: #### LIPID, LIVER #### [facility] [address] [place] [address] Dr. Favio CuetoVLDL CALC15.6 mg/dLNoDelaware County HospitalComment on above: Performed By: #### LIPID, LIVER #### [facility] [address] [place] [address] Dr. Favio Francis PROFILEon 45-24-0413Jklftyl [Mass/Vol]4.3 g/dLNormal3.4-5.0 The [facility] CampusComment on above:Performed By: #### LIPID, LIVER #### [facility] [address] [place] [address] Dr. Favio CuetoAlbumin/Globulin [Mass ratio]1.5 {ratio}NormalThe [facility] CampusComment on above:Performed By: #### LIPID, LIVER #### [facility] [address] [place] [address] Dr. Favio Damon [Catalytic activity/Vol]55 U/FUgxrru04-239Vii [facility] CampusComment on above:Performed By: #### LIPID, LIVER #### [facility] [address] [place] [address] Dr. Favio Kimble [Catalytic activity/Vol]23 U/PGyodxu60-88Yba [facility] CampusComment on above:Performed By: #### LIPID, LIVER #### [facility] [address] [place] [address] Dr. Favio Mejía [Catalytic activity/Vol]15 U/NHofhje93-57RrvOhio State Harding HospitalComment on above:Performed By: #### LIPID, LIVER #### [facility] [address] [address] [address] Favio MengI, CONJUGATED0.2 mg/dLNormal0.0-0.2[facility] Comment on above:Performed By: #### LIPID, LIVER #### [facility] [address] [place] [address] Dr. Favio Mengirubin [Mass/Vol]0.7 mg/dLNormal0.2-1.0[facility] Comment on above:Performed By: #### LIPID, LIVER #### [facility] [address] [place] [address] Dr. Favio CuetoGlobulin (S) [Mass/Vol]2.8 g/dLNormalThCleveland Clinic South Pointe HospitalComment on above:Performed By: #### LIPID, LIVER #### [facility] [address] [place] [address] Dr. Favio CuetoProtein [Mass/Vol]7.1 g/dLNormal6.4-8.2[facility] Comment on above:Performed By: #### LIPID, LIVER #### [facility] [address] [place] [address] Dr. Favio CuetoMG MAMM SCREEN 3D ARCHIE CADon 11-47-1962WC MAMM SCREEN 3D ARCHIE CAD Patient: NADYA RODRIGUEZ Exam Date: 10/27/2022 : 1955 Gender:F Ordering : SHAIKH Rosa SANTORO . Admission #: [id number] Family : Order #: [id number] CLICK HERE TO VIEW EXAM RADIOLOGY REPORT PROCEDURE: MAMMOGRAM SCREENING 3D BILATERAL CAD COMPARISON: None. INDICATIONS: Screening mammography Calculator Name NCI Breast Cancer Risk Assessment Tool 5 Year Breast Cancer Risk 1.30% Lifetime Breast Cancer Risk 5.00% Personal Breast Cancer No Personal Ovarian Cancer No Treatments None Family Cancers None LOCATION: [facility] BREAST COMPOSITION: Heterogeneously dense,which may obscure small [...] by: Hollie Loving MD on 11/23/2022 at 08:22[facility] Medical CenterCT LUNG CANCER SCREENINGon 38-47-3279KH LUNG CANCER SCREENINGEXAMINATION: CT LUNG CANCER SCREENING HISTORY: Nicotine dependence [...] Electronically authenticated by: HOLLIE LOVING Date: 2022-04-05 10:37[facility] Vital Signs Date TimeVital SignValuePerforming BcskvviwsEzllbovq82-89-3023 10:330400Body jmphed811.02 cmRogelio Coleman MD Work Phone: [facility]10-13-2025 10:33-0400 Body mass index (BMI) [Ratio]24.3 kg/m2Rogelio Coleman MD Work Phone: [facility]10-13-2025 10:33-0400 Body nryloi07.14 kgRogelio Coleman MD Work Phone: [facility]10-13-2025 10:33-0400 Diastolic blood hsjawrii38 mm[Hg]Rogelio Coleman MD Work Phone: [phone]10-13-2025 10:33-0400 Heart rate66 /minRogelio Coleman MD Work Phone: [phone]10-13-2025 10:33-0400 Respiratory rate20 /minRogelio Coleman MD Work Phone: [phone]10-13-2025 10:33-0400 SaO2% (BldA) [Mass fraction]97 %Rogelio Coleman MD Work Phone: [phone]10-13-2025 10:33-0400 Systolic blood yehzzmtz501 mm[Hg]Rogelio Coleman MD Work Phone: [phone]06-06-2025 10:27-0400 Body voakqs181 cmRogelio Coleman MD Work Phone: [facility] HospitalObmlfcncby48-23-6307 10:27-0400Body mass index (BMI) [Ratio]24.62 kg/m2Rogelio Coleman MD Work Phone: [facility] HospitalYzwedhnqbr92-28-3667 10:27-0400Body temperature 97.11 [degF]Rogelio Coleman MD Work Phone: [facility] HospitalGtbqvvgpnn10-51-9965 10:27-0400Body .05 kgRogelio Coleman MD Work Phone: [facility] HospitalDyjqkweefx58-09-9270 10:27-0400Diastolic blood tgjbusym15 mm[Hg]Rogelio Coleman MD Work Phone: [facility] HospitalJcgaagmype33-37-1403 10:27-0400Heart rate97 /min Rogelio Coleman MD Work Phone: [facility] HospitalJycdagmjvw95-85-2891 10:27-0400Respiratory rate22 /minRogelio Coleman MD Work Phone: [phone] [place], [place] [address]Hkmuqitwpz71-53-6148 10:27-8433DqT1% (BldA) [Mass fraction]97 %Rogelio Coleman MD Work Phone: [phone] [place], [place] [address]Kwwuemnjqb62-88-6322 10:27-0400Systolic blood mcdprenf537 mm[Hg]Rogelio Coleman MD Work Phone: 1(000)[address] [place], [place] 9599305-21-2025 17:25-0400Diastolic blood cooecvev42 mm[Hg]Shaikh Maude WEBBER Work Phone: 1(790)[address] [place], [place] 6883805-21-2025 17:25-0400 Heart rate81 /Dixie Santoro MD Work Phone: 1(174)[address] [place], [place] 6883805-21-2025 17:25-0400 Respiratory rate16 /Dixie Sanotro MD Work Phone: 1([phone])[address] [place], [place] 6883805-21-2025 17:25-0400 SaO2% (BldA) [Mass fraction]96 %Shaikh Maude WEBBER Work Phone: [phone])[address] [place], [place] 6883805-21-2025 17:25-0400 Systolic blood hjqakopk452 mm[Hg]Shaikh Maude WEBBER Work Phone: 1(708)[address] [place], [place] 6883805-21-2025 12:11-0400 Body uhdtlz8595.24 Joanna Santoro MD Work Phone: 1(759)[address] [place], [place] 6883805-21-2025 12:11-0400 Body tpiybhjzzkj76 [degF]Shaikh Maude WEBBER Work Phone: [phone])[address] [place], [place] 6883805-21-2025 12:11-0400 Body jnjovn22 kgShaikh Maude WEBBER Work Phone: 1(087)[address] [place], [place] 6883805-15-2025 09:03-0400 Body .02 Joanna Santoro MD Work Phone: 1(587)[address] [place], [place] 6883805-15-2025 09:03-0400 Body vsujjbbwoco26.6 [degF]Shaikh Maude WEBBER Work Phone: 1(553)[address]05-15-2025 09:03-0400 Body mwdxuk28 Camelia Santoro MD Work Phone: [phone])[address] [place], [place] 6883805-15-2025 09:03-0400 Diastolic blood mm[Hg]Shaikh Maude WEBBER Work Phone: 1(419)[address]05-15-2025 09:03-0400 Heart rate74 /Dixie Santoro MD Work Phone: 1(419)[address] [place], [place] 6883805-15-2025 09:03-0400 Respiratory rate20 /Dixie Santoro MD Work Phone: 1(018)[address] [place], [place] 6883805-15-2025 09:03-0400 SaO2% (BldA) [Mass fraction]98 %Shaikh Maude WEBBER Work Phone: 1(032)[address] [place], [place] 6883805-15-2025 09:03-0400 Systolic blood mm[Hg]Shaikh Maude WEBBER Work Phone: [phone]05-13-2025 13:11-0400 Body omoqkb170 cmMichael Carrillo RESOURCE CONSERVATION SPECIALIST-DATA ENTRY MANAGER Work Phone: [facility]05-13-2025 13:11-0400 Body mass index (BMI) [Ratio]24.62 kg/i0JymdcMichael Carrillo RESOURCE CONSERVATION SPECIALIST-DATA ENTRY MANAGER Work Phone: [facility]05-13-2025 13:11-0400 Body .05 kgMichael Carrillo RESOURCE CONSERVATION SPECIALIST-DATA ENTRY MANAGER Work Phone: [phone]05-13-2025 13:11-0400 Diastolic blood mhthmuxq91 mm[Hg]Michael Carrillo RESOURCE CONSERVATION SPECIALIST-DATA ENTRY MANAGER Work Phone: 0(057)219-[address] [place], [place] 9974505-13-2025 13:11-0400 Heart rate86 /Deb Carrillo RESOURCE CONSERVATION SPECIALIST-DATA ENTRY MANAGER Work Phone: [facility]05-13-2025 13:11-0400 Systolic blood fkvobgsm817 mm[Hg]Michael Carrillo RESOURCE CONSERVATION SPECIALIST-DATA ENTRY MANAGER Work Phone: [facility]05-09-2025 10:00-0400 Diastolic blood lbebmcyv75 mm[Hg]Shaikh Maude WEBBER Work Phone: [phone]05-09-2025 10:00-0400 Heart rate59 /Dixie Santoro MD Work Phone: 1(304)[address] [place], [place] 6883805-09-2025 10:00-0400 Respiratory rate16 /Dixie Santoro MD Work Phone: 1(559)[address] [place], [place] 6883805-09-2025 10:00-0400 SaO2% (BldA) [Mass fraction]96 %Shaikh Maude WEBBER Work Phone: 1(703)[address]05-09-2025 10:00-0400 Systolic blood mm[Hg]Shaikh Maude WEBBER Work Phone: 1(667)[address] [place], [place] 6883804-09-2025 12:35-0400 Diastolic blood reuktjch99 mm[Hg]Shaikh Maude WEBBER Work Phone: 1(183)[address]04-09-2025 12:35-0400 Heart rate74 /Dixie Santoro MD Work Phone: 1(593)854-[address] [place], [place] 4883704-09-2025 12:35-0400 Respiratory rate16 /Dixie Santoro MD Work Phone: 1(084)[address] [place], [place] 6883804-09-2025 12:35-0400 SaO2% (BldA) [Mass fraction]97 %Shaikh Maude WEBBER Work Phone: [phone](402)[address]04-09-2025 12:35-0400 Systolic blood mm[Hg]Shaikh Maude WEBBER Work Phone: [facility]04-09-2025 10:07-0400 Body bmwooj551.02 cmSdeejay Santoro MD Work Phone: [facility]04-09-2025 10:07-0400 Body udeeasdyzhl19.1 [degF]Shaikh Maude WEBBER Work Phone: [facility]04-09-2025 10:07-0400 Body fbszmi82 kgShnewton Santoro MD Work Phone: [facility]03-20-2025 10:45-0400 Body qnrrxa927.2 cmTcatarina Hurst MD Work Phone: [facility]03-20-2025 10:45-0400Body mass index (BMI) [Ratio]20.99 kg/d0Vjrywgglen Hurst MD Work Phone: [facility]03-20-2025 10:45-0400Body .78 kgThglen Hurst MD Work Phone: 1(583)417-SlideRocketHol[facility]03-20-2025 10:45-0400Diastolic blood mxujqwsl65 mm[Hg]Marii Hurst MD Work Phone: [facility]03-20-2025 10:45-0400Heart rate 70 /minThglen Hurst MD Work Phone: 1(833)757-SlideRocketHol[facility]03-20-2025 10:45-0400Systolic blood wtrlaoen124 mm[Hg]Marii Hurst MD Work Phone: [facility]02-15-2025 10:05-0500Body tjzcys679.02 [facility]15[facility]2025 10:05-0500Body mass index (BMI) [Ratio]23.6 kg/j5BqhrsdttnMain [facility] Center02-15-2025 10:05-0500Body gstetnnkfgz35.3 [degF][facility]02-15-2025 10:05-0500Body lsrluj50.49 kgMain [facility]02-15-2025 10:05-0500Diastolic blood fofiwcpb67 mm[Hg][facility] 09-14-2024 10:05-0500Heart jgrl218 /[facility] 09-14-2024 10:05-0500Respiratory rate18 /[facility] 09-14-2024 10:05-3613RqI9% (BldA) [Mass fraction]97 %[facility]02-15-2025 10:05-0500Systolic blood xuaqndbj956 mm[Hg][facility]02-07-2025 13:10-0500Body kadamv244 cmBilly Finch MD Work Phone: [facility]puwd[facility]h26-39-3715 13:10-0500Body mass index (BMI) [Ratio]23.74 kg/w4AonlloBilly Finch MD Work Phone: [facility] HospitalPzwvlvnuet12-61-8980 13:10-0500Body .78 kgBilly Finch MD Work Phone: [facility] HospitalUblqpsfcfb86-69-9046 13:10-0500Diastolic blood mm[Hg]Billy Finch MD Work Phone: [facility] HospitalTukujdpzpg38-73-4937 13:10-0500Heart rate98 /min Billy Finch MD Work Phone: [facility] HospitalMdyqxvbmse91-80-4632 13:10-0500Systolic blood mm[Hg]Billy Finch MD Work Phone: [facility] HospitalOvqtojobfo92-72-4128 08:24-0500Body mass index (BMI) [Ratio]23.88 kg/m2YljzgsklTristian Bearden ANIMATION CAMERA OPERATOR Work Phone: [facility] HospitalDycffcrnqu18-15-9017 08:24-0500Body temperature 98.71 [degF]Tristian Bearden ANIMATION CAMERA OPERATOR Work Phone: 1(419)547-[address] [place], [place] [address]Pbxkpksvhg80-60-0005 08:24-0500Body uxrgiy55.15 kgTristian Bearden ANIMATION CAMERA OPERATOR Work Phone: 1(985)[facility] [place], [place] [address]Pbkunbapbs98-74-1550 08:24-0500Diastolic blood fmdhmamn24 mm[Hg]Tristian Bearden ANIMATION CAMERA OPERATOR Work Phone: [phone] HospitalUhwxhzhpbv87-36-4584 08:24-0500Heart rate71 /min Tristian Bearden ANIMATION CAMERA OPERATOR Work Phone: 1(964)[facility] [place], [place] [address]Dihvgzvlxu83-94-8451 08:24-0500Respiratory rate18 /minBrbandar Bearden ANIMATION CAMERA OPERATOR Work Phone: 1(120)[facility] [place], [place] [address]Sbtarlecsb45-38-1914 08:24-2755OiX6% (BldA) [Mass fraction]94 %Tristian Bearden ANIMATION CAMERA OPERATOR Work Phone: [phone] HospitalSzkbfxvkkg35-41-6907 08:24-0500Systolic blood oqcejlza020 mm[Hg]Tristian Bearden ANIMATION CAMERA OPERATOR Work Phone: [phone] HospitalVgobvymqjo07-73-1584 08:25-0500Body vsqqby533 cm Tristian Bearden ANIMATION CAMERA OPERATOR Work Phone: [place] [address]Bqctzcdvpc05-57-6757 08:25-0500Body mass index (BMI) [Ratio]24.99 kg/n4Wccqlpyz Bearden ANIMATION CAMERA OPERATOR Work Phone: [phone] HospitalQxlwdeytsx02-72-3443 08:25-0500Body temperature 96.91 [degF]Tristian Bearden ANIMATION CAMERA OPERATOR Work Phone: 1(768)[facility]-[address] [place], [place] [address]Dmriiamtqz44-19-0552 08:25-0500Body bljvga79 kg Tristian Bearden ANIMATION CAMERA OPERATOR Work Phone: 1(427)[facility]-[address] [address]Jkrcitdlrq28-62-5950 08:25-0500Diastolic blood reejndqi83 mm[Hg]Tristian Bearden ANIMATION CAMERA OPERATOR Work Phone: 1(270)726-[address] [place], [place] [address]Zaxlwwbteh74-23-4404 08:25-0500Heart rate69 /min Tristian Bearden ANIMATION CAMERA OPERATOR Work Phone: [facility] HospitalZwetaurccy74-36-1134 08:25-0500Respiratory rate16 /minBrittradha Bearden ANIMATION CAMERA OPERATOR Work Phone: [facility] HospitalGqhpfnmjwd36-68-3572 08:25-3426SzA9% (BldA) [Mass fraction]98 %Tristian Bearden ANIMATION CAMERA OPERATOR Work Phone: [facility] HospitalZejyyfhwya04-35-6259 08:25-0500Systolic blood mtsnousp919 mm[Hg]Tristian Bearden ANIMATION CAMERA OPERATOR Work Phone: [facility] HospitalUsfwtqrask74-14-2737 10:55-0400Diastolic blood zyebofmb15 mm[Hg]MD Shaikh Santoro Work Phone: 1(263)[address]06-28-2024 10:55-0400 Heart rate81 /minMD Shaikh Santoro Work Phone: 1(149)[address]06-28-2024 10:55-0400 Respiratory rate16 /minMD Shaikh Santoro Work Phone: 1(862)570-[address] [place], [place] 4883706-28-2024 10:55-0400 SaO2% (BldA) [Mass fraction]100 %MD Shaikh Santoro Work Phone: 1(873)564-[address] [place], [place] 4883706-28-2024 10:55-0400 Systolic blood bejyrgsg308 mm[Hg]MD Shaikh Santoro Work Phone: 1(452)382-[address] [place], [place] 4883706-28-2024 08:35-0400 Body ipsxbi776.02 cmMD Shaikh Santoro Work Phone: [address](312)[address]06-28-2024 08:35-0400 Body .5 kgMD Shaikh Santoro Work Phone: 1(786)115-[address] [place], [place] 4883703-25-2024 16:00-0400 Diastolic blood tlszfyhi49 mm[Hg]PHYSICIAN NO [facility]03-25-2024 16:00-0400Heart rate68 /minPHYSICIAN [facility]03-25-2024 16:00-0400Respiratory rate16 /minPHYSICIAN [facility]03-25-2024 16:00-2746GwJ3% (BldA) [Mass fraction]99 %PHYSICIAN NO [facility]03-25-2024 16:00-0400Systolic blood luzusubc225 mm[Hg]PHYSICIAN NO [facility]03-25-2024 12:33-0400Body keeknnryrna04.6 [degF]PHYSICIAN NO [facility]03-25-2024 12:33-0400Inhaled oxygen flow rate10 L/minPHYSICIAN [facility]03-25-2024 08:59-0400Body .02 cmPHYSICIAN [facility]03-25-2024 08:59-0400Body mass index (BMI) [Ratio]23.4 kg/h5FZGQZDOQJ [facility]03-25-2024 08:59-0400Body blabpy91 kg PHYSICIAN [facility]03-15-2024 08:41-0400Body hyfpip899.02 cmPHYSICIAN [facility]03-15-2024 08:41-0400Body mass index (BMI) [Ratio]23.6 kg/o6BIMSGAXQB [facility]03-15-2024 08:41-0400Body zavdxp07.32 kgPHYSICIAN [facility]07-21-2009 10:27-0400Body .2 cm Marii Hurst MD Work Phone: [facility]07-21-2009 10:27-0400Body mass index (BMI) [Ratio]21.14 kg/x0KifmghMarii Hurst MD Work Phone: [facility]-PontiacDajroq90-69-4366 10:27-0400Body .24 kgThomas Aris WEBBER Work Phone: [facility] HospitalD[facility] Xyyqoz83-96-8535 10:27-0400Diastolic blood asbywvmm20 mm[Hg]Marii Hurst MD Work Phone: [facility] HospitalSensicoreil [employer]Xyzdqs13-65-1035 10:-0400Heart rate 100 /minThomas Aris WEBBER Work Phone: [facility] Qonf Hoxjve36-53-8357 10:27-0400Systolic blood vmcawmqw353 mm[Hg]Marii Hurst MD Work Phone: [facility] Encounters Encounter DateEncounter TypeCare ProviderFacilityStart: 05-12-2025 End: 70-40-7017gslasvblfqMgfy Naderer MD Work Phone: [facility] Work Phone: Start: 05-12-2025 End: 28-62-7181Lriwtnp encounter procedureJekeena Pollard DO-[facility] [place] Work Phone: Start: 03-12-2025 End: 35-67-0538Zxjzfwdez Result EncounterRogelio Coleman MD Work Phone: noms External Department UnsolicitedStart: 03-12-2025 End: 86-41-4738Vdottlwjc Result EncounterRogelio Coleman MD Work Phone: noms External Department UnsolicitedStart: 01-24-2025 End: 79-32-3917Ajfxkvrqm Result EncounterRogelio Coleman MD Work Phone: noms External Department UnsolicitedStart: 01-24-2025 End: 76-59-1330Ustfvjgal Result EncounterRogelio Coleman MD Work Phone: noms External Department UnsolicitedStart: 01-03-2025 End: 78-59-8595Bohrsb flowsheetRogelio Coleman MD Work Phone: noms CWM FMStart: 01-03-2025 End: 29-76-7480Hkhadr flowsheetRogelio Coleman MD Work Phone: n[facility] CWM FMStart: 01-03-2025 End: 54-37-3592Uzyoxo outpatient visit 15 minutesRogelio Coleman MD Work Phone: noms CWM FMComment on above:Mixed hyperlipidemia (CMS/HCC) (Primary Dx); Former smoker; Centrilobular emphysema (CMS/HCC)Start: 01-03-2025 End: 12-51-1011xczqhxssaaJRSV NADERERNot AvailableStart: 12-18-2024 End: 78-57-8063Wiutkrlld to same day surgery centerW Evans Olivarez DO-Contract Accountant Work Phone: Start: 12-18-2024 End: 49-31-2900viifcrlezhN Scott SheldonFacility:[facility] Hospitaltart: 12-16-2024 End: 55-68-8323oavnlmcfimGpgrca Fawwad MD Work Phone: [facility] Work Phone: Start: 12-16-2024 End: 79-91-5258Xewrcfum ReferredW Evans Olivarez DO-Contract Accountant Work Phone: Start: 12-12-2024 End: 89-39-1329Mpqrzdj encounter procedureW Evans Olivarez HU-Wyr-Apsqkqyw Testing Work Phone: Start: 12-12-2024 End: 20-93-6312gstleclzrgYmej NadererFacility:[facility] Start: 83-57-6767Dtxuepgyt for preprocedural laboratory examinationW Evans [facility] Phys[facility] GroupStart: 12-10-2024 End: 77-23-7021Mnmulc consultation new/estab patient 40 Deb Carrillo RESOURCE CONSERVATION SPECIALIST-DATA ENTRY MANAGER Work Phone: [facility] HospitalComment on above:Abnormal cardiac CT angiography (Primary Dx); Chest pain, unspecified type; Mixed hyperlipidemia; BMI 24.0-24.9, adultStart: 12-10-2024 End: 97-92-7194kfjwygbdfuJMFDO [facility] AmbulatoryStart: 12-06-2024 End: 59-26-2055Atkrobv encounter procedureSdeejay Santoro MD Work Phone: [facility] Ctr-CT Scan [facility] [place] Work Phone: Start: 12-06-2024 End: 60-39-8848gtrcgtbuihDyolfz Fawwad MD Work Phone: [facility] Work Phone: Start: 12-03-2024 End: 03-02-7992Pvelmz flowsheetRylee [facility] PA Work Phone: [facility] SWS DERMStart: 12-03-2024 End: 36-72-2040Cksjta flowsheetRylee [facility] PA Work Phone: [facility] SWS DERMStart: 12-03-2024 End: 15-89-1718Lgjyeq outpatient new 30 minutesRylee [facility] PA Work Phone: noms SWS DERMComment on above:Capillary angioma (Primary Dx); Seborrheic keratosis; Inflamed seborrheic keratosis; Actinic keratosis; Lentigo simplexStart: 12-03-2024 End: 77-99-9176rydcnopnxlJLCJF NORTHEIMNot AvailableStart: 11-22-2024 End: 59-94-9957gnugbgghhiXclopf Fawwad MD Work Phone: [facility] Work Phone: Start: 11-22-2024 End: 80-70-9856Kwxuexn encounter procedureSdeejay Santoro MD Work Phone: [facility] Work Phone: Start: 11-06-2024 End: 63-51-3104Comrvjrgl to same day surgery centerSdeejay Santoro MD Work Phone: [phone] Ctr-[facility] HospitalStart: 11-06-2024 End: 73-16-1717gchbtglmomJvtpcn Fawwad MD Work Phone: [facility] Work Phone: Start: 50-90-8934Wvx-patient / Non-visitSdeejay Santoro MD Work Phone: [facility] Work Phone: Start: 10-30-2024 End: 18-94-4073rmencjydxaVqsmye Fawwad MD Work Phone: [facility] Work Phone: Start: 10-30-2024 End: 30-55-1905Rrxugvw encounter procedureSdeejay Santoro MD Work Phone: [facility] Work Phone: Start: 10-30-2024 End: 76-05-4298Dtctxka encounter procedureSdeejay Santoro MD Work Phone: [facility] Ctr-XRay [facility] Start: 10-30-2024 End: 58-38-0271bjzooifgelYdxxbu Fawwad MD Work Phone: [facility] Work Phone: Start: 10-24-2024 End: 43-24-2245shcmmokouqPnuefn Fawwad MD Work Phone: [facility] Work Phone: Start: 10-24-2024 End: 06-98-8917Pcjgoic encounter procedureSdeejay Santoro MD Work Phone: [facility] Work Phone: Start: 10-24-2024 End: 68-42-9058Xzxvagp encounter procedureSdeejay Santoro MD Work Phone: [facility] Cqt-Ltx-Wrmovhxu Testing Work Phone: Start: 10-24-2024 End: 60-80-6361zlgrclfrvrNvtvwk Fawwad MD Work Phone: [facility] Work Phone: Start: 10-17-2024 End: 69-11-8860Zoipya consultation new/estab patient 40 Anival Hurst MD Work Phone: [facility] CardiologyComment on above:Chest pain, unspecified type (Primary Dx)Start: 10-17-2024 End: 57-34-9441rocjtcamjsFIJEHN [facility] Ambulatory PPGStart: 10-16-2024 End: 08-72-1243Jlewntelc encounterJennkacie [facility] CardiologyStart: 10-10-2024 End: 87-36-2354Nhoxc abstractingMarii Hurst MD Work Phone: [facility] CardiologyStart: 10-01-2024 End: 99-35-8619itlouhmzmnFcsyou Fawwad MD Work Phone: [facility] Work Phone: Start: 10-01-2024 End: 00-59-0468Fbiykzk encounter procedureSdeejay Santoro MD Work Phone: [facility] Work Phone: Start: 09-14-2024 End: 36-41-3197ijhkgxcnuuLywbsqjmqLutheran Hospital Work Phone: Start: 09-14-2024 End: 81-08-6704Txzzzvi encounter procedureAtrium Health Physician GroupSAMARITAN [facility] [place] Work Phone: Start: 09-06-2024 End: 61-77-2667Jduitu flowsheetHimachelle Finch MD Work Phone: [facility] ENT NORWALKStart: 09-06-2024 End: 70-39-8897Xgxdto flowsheetBilly Finch MD Work Phone: [facility] ENT JORGE LUISKStart: 09-06-2024 End: 54-06-4078Gqvxni outpatient new 30 minutesBilly Finch MD Work Phone: [facility] ENT JORGE LUISKComment on above:Tonsillar tagStart: 09-06-2024 End: 09-71-4226wzjycknxcvEORGXD H TIMMISNot AvailableStart: 09-05-2024 End: 73-81-3190Iqzssl OnlyTristian Fishertrick ANIMATION CAMERA OPERATOR Work Phone: [facility] CWM FMComment on above:Coronary artery calcification seen on CAT scan (CMS/HCC)Start: 08-29-2024 End: 71-40-8459Bwmpyz flowsheetBrittany Bearden ANIMATION CAMERA OPERATOR Work Phone: [facility] CWM FMStart: 08-29-2024 End: 79-24-1942Jhtzmc flowsheetBrittany Bearden ANIMATION CAMERA OPERATOR Work Phone: n[facility] CWM FMStart: 08-29-2024 End: 41-44-1152Frkwlh outpatient visit 15 minutesBrittany Bearden ANIMATION CAMERA OPERATOR Work Phone: [facility] CWM FMComment on above: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); AnxietyStart: 08-29-2024 End: 18-27-5729hrcornxcwiHJYKHEQX FITZPATRICKNot AvailableStart: 08-26-2024 End: 91-84-4125Zcbnargyfr hospital visit by physician21 Neal StreetComment on above:Hyperlipidemia, unspecified; Family history of ischemic heart disease and other diseases of the circulatory system; Elevated blood-pressure reading, without diagnosis of hypertensionStart: 08-26-2024 End: 52-68-7145zmcjivhthpPBVMORNPOhio Valley Hospitaltart: 08-22-2024 End: 41-62-9039BmqidtQdhg Zack ARTEAGA CWM FMComment on above:Hyperlipidemia, unspecified hyperlipidemia type (CMS/HCC)Start: 06-18-2024 End: 41-33-7779Dopbax flowsheetSurjitgeorgesradha Bearden ANIMATION CAMERA OPERATOR Work Phone: [facility] CWM FMStart: 06-18-2024 End: 47-83-0594Friews flowsheetBrittany Bearden ANIMATION CAMERA OPERATOR Work Phone: [facility] CWM FMStart: 06-18-2024 End: 08-89-4927Jkjoek outpatient visit 15 minutesBrittradha Bearden ANIMATION CAMERA OPERATOR Work Phone: [facility] CWM FMComment on above:Hyperlipidemia, unspecified hyperlipidemia type (CMS/HCC) (Primary Dx); Family history of CHF (congestive heart failure); Family history of abdominal aortic aneurysm (AAA); Family history of heart diseaseStart: 06-18-2024 End: 43-15-1220vzubnwubxvFDTYNFBV FITZPATRICRICKYot AvailableStart: 01-30-2024 End: 21-06-3429vkibenvcfdPY Shaikh Maude Work Phone: [facility] Work Phone: Start: 01-30-2024 End: 08-84-7516Omzpupg encounter procedureMD Shaikh Maude Work Phone: [facility] Work Phone: Start: 08-54-3428Gjq-patient / Non-visitMD Shaikh Santoro Work Phone: [facility] Work Phone: Start: 22-01-7604Uji-patient / Non-visitMD Shaikh Santoor Work Phone: [facility] Work Phone: Start: 01-26-2024 End: 14-54-7182Xlkjdfqwn to same day surgery centerMD Olsen Fawwad Work Phone: [facility] Ctr-Digestive Health Work Phone: Start: 01-26-2024 End: 22-27-0482grfkttpdfhHM Shaikh Fawwad Work Phone: [facility] Work Phone: Start: 12-06-2023 End: 73-79-3314enygojqebjOXIUMFKTO NO [facility] Work Phone: Start: 12-06-2023 End: 43-06-7986Xrznfqu encounter procedurePHYSICIAN NO [facility] Work Phone: Start: 11-29-2023 End: 34-40-0306Pzvwfwudk Result EncounterSdeejay Santoro MD Work Phone: noms External Department UnsolicitedStart: 11-29-2023 End: 05-46-1480Nhvxnvfww Result EncounterSdeejay Santoro MD Work Phone: n[facility] External Department UnsolicitedStart: 11-08-2023 End: 59-05-0568kuhgxgeyifJDEYDTVWO NO [facility] Work Phone: Start: 11-08-2023 End: 19-75-6323Siutrmf encounter procedurePHYSICIAN NO [facility] Work Phone: Start: 10-23-2023 End: 89-96-2681Dvisifkmj to same day surgery centerPHYSICIAN NO [facility]Start: 10-23-2023 End: 32-96-5809qimnsivpjkDBACBFZMG NO [facility] Work Phone: Start: 36-72-6937Ptb-patient / Non-visitPHYSICIAN NO [facility] Work Phone: Start: 86-47-6265Csmqvcruol RecurringPHYSICIAN NO [facility] C[facility]-Physical Therapy [place] CreekStart: 10-13-2023 End: 25-66-8801fehlgfkuqnAWBIGREYL NO [facility] Work Phone: Start: 10-13-2023 End: 65-65-3417Hczytqs encounter procedurePHYSICIAN NO [facility] Work Phone: Start: 10-10-2023 End: 39-00-2863Oqozmko encounter procedurePHYSICIAN [facility] Pfp-Lou-Swovywdj Testing Work Phone: Start: 10-03-2023 End: 46-03-1577Yifhukvlaamn stateTristian Lynnk ANIMATION CAMERA OPERATOR Work Phone: noms HealthcareStart: 09-26-2023 End: 11-49-4521Qvgvoar encounter procedurePHYSICIAN [facility] Ctr-Lab [place] Work Phone: Start: 08-28-2023 End: 23-86-0950Jokuyouac Result EncounterSdeejay Santoro MD Work Phone: noms External Department UnsolicitedStart: 08-28-2023 End: 82-89-1807Ryajzxhev Result EncounterSdeejay Santoro MD Work Phone: n[facility] External Department UnsolicitedStart: 08-23-2023 End: 43-94-2768lhnehxhlsjBuqqtg Brandt STEVENSON Other [facility] [employer] Other Start: 80-27-7179Tvevmf outpatient visit 40 minutes Luis Carlton IIFPG [facility] OrthopedicsStart: 48-60-1070Ppkbxvk encounter procedureBrbandar Lynnk ANIMATION CAMERA OPERATOR Work Phone: noms HealthcareStart: 07-13-2023 End: 35-61-9471horkbgplhmXqxzah Brandt II Other [employer] Other Start: 46-36-1559Fejzjv outpatient visit 25 minutes Luis Carlton IIFPG [facility]opedicsStart: 07-10-2023 End: 90-76-4000okaxxnlcfdSatlfj [place] Other noAffinergy [employer] Other Start: 97-34-3961Muenabvae encounterRobert [place] [facility]icsStart: 05-12-2023 End: 27-68-0002ezbgeobbyxCX Luis Elisele II Work Phone: [facility] Work Phone: Start: 05-12-2023 End: 74-19-3337Fyapuxj encounter procedureMD Luis Elisele II Work Phone: [facility] Start: 10-27-2022 End: 16-71-5584tqiquivovfULEJVC H FAWWADFacility:V5Hnhro: 04-05-2022 End: 22-05-4067ewumvzyyaoIVXLWT H FAWWADFacility:H1 Procedures DateProcedureProcedure DetailPerforming ClinicianStart: 31-86-3371RM TOMOSYNTHESIS SCREENING BIMarc Papa WEBBER Work Phone: Start: 11-34-0125JcdggupvhucAdzb Naderer MD Work Phone: Start: 09-17-5838WJ LUNG SCREENING LOW DOSERogelio Coleman MD Work Phone: Start: 87-06-4263Fpxlmo Fawwad MD Work Phone: Start: 95-59-2332KK [facility] AngioShaikh Maude WEBBER Work Phone: Start: 41-65-8420LY angiography of coronary arteries Shaikh Maude WEBBER Work Phone: [phone]: 12-03-2024 End: 63-14-6293XUTPSCZJXPE SKIN LESIONRylee Alexandria PA Work Phone: Start: 49-83-0969Iiptxfamcfyqs of median nerveSdeejay Santoro MD Work Phone: Start: 42-80-2513Zqajr X-ray of left hipSdeejay Santoro MD Work Phone: Start: 42-49-4046Tlerd X-ray of bilateral wristsSdeejay Santoro MD Work Phone: Start: 01-26-2024 End: 21-27-4923McysyzjfafhWI Shaikh Maude Work Phone: Start: 63-34-3265OhtsazjhphdKfmwasnm Bearden ANIMATION CAMERA OPERATOR Work Phone: [phone]: 90-15-8325Qetzo X-ray of left hipPHYSICIAN NO FAMILYStart: 50-42-1879EE TOMOSYNTHESIS SCREENING Janee Santoro MD Work Phone: [phone]: 10-38-2445TzazokvbpimYobkrxwp Bearden ANIMATION CAMERA OPERATOR Work Phone: [phone]: 88-39-6811Xmgyu X-ray of left hipPHYSICIAN NO FAMILYStart: 24-03-4693Ojpzu replacement of left hip jointPHYSICIAN NO FAMILY Start: 66-43-6367Khitq X-ray of left hipPHYSICIAN NO FAMILYStart: 09-26-2023 Methicillin resistant Staphylococcus aureus culturePHYSICIAN NO FAMILYStart: 12-46-3780AG LUNG SCREENING LOW DOSESdeejay Santoro MD Work Phone: Start: 10-50-7190KGV CBC WITH AUTO DIFFShaikh Maude WEBBER Work Phone: [phone]: 29-12-0456XEM LIPID PROFILE (FASTING)Shaikh Maude WEBBER Work Phone: Start: 19-83-4158HUP CMP (CMP) (FOR REMOTE [facility] USE) Shaikh Maude WEBBER Work Phone: Start: 70-89-5718KJF FERRITINShaikh Maude WEBBER Work Phone: Start: 03-12-1700PLY VITAMIN I07OjxgchShaikh Maude WEBBER Work Phone: Start: 15-29-9470Lfksl X-ray of left hipMD Luis Carlton II Work Phone: Start: 34-53-0779Lelkyddmtc examination of kneeMD Luis Carlton II Work Phone: Plan of Treatment DateCare ActivityDetailAuthorStart: 90-34-7447Hoerkwicl for malignant neoplasm of colonSelect [facility]ty [facility]-FairhillStart: 69-11-2558Kfgfxatjm for malignant neoplasm of colonNOMS HealthcareStart: 36-95-8237Zsskvcwtf for malignant neoplasm of colonNOMS HealthcareStart: 40-56-4053Ahjetupfk for malignant neoplasm of breastMammogramNOMS HealthcareStart: 12-03-2025 End: 21-38-3680Nzrjfhy encounter procedureNOMS SWS DERMStart: 12-01-2025 Screening for malignant neoplasm of breastMammogramNOMS HealthcareComment on above:Postponed from 11/28/2024 (Other Medical Reasons)Start: 40-72-4197Baane BMI ScreeningAdult BMI ScreeningProPromedica Fostoria Community Hospital SystemStart: 06-21-2025 Screening for malignant neoplasm of colonFIT-DNANOMS HealthcareStart: 04-08-2025 End: 04-23-4100Oomwvrp encounter /09/2025 9:00 AM EDT Office Visit [facility] [address] [place] [address] Rogelio Coleman MD [address] [place] [address] [facility] CWM FMStart: 03-93-1260Trarprtcb vaccinationNONV HealthcareStart: 59-55-2981Wyohdtnkc vaccinationInfluenza Vaccine (#1)NOMS HealthcareComment on above:Postponed from 03/31/2024 (Patient Refused)Start: 01-03-2025 End: 13-96-3455OD Chest for screening WO contrastCT lung screening low dose Imaging Routine Former smoker Expected: 01/03/2025, Expires: 01/03/2026NONV Healthcare Work Phone: Comment on above:Expected: 01/03/2025, Expires: 01/03/2026Start: 01-03-2025 End: 70-61-0676Hzgowdf encounter kndoaokls91/06/2025 10:30 AM EDT [facility] [address] [place] [address] Rogelio Coleman MD [address] [place] [address] ArrivedWEST LOS [facility]EL[facility] FMComment on above:ArrivedStart: 12-25-2024 End: 53-97-6582Zselbdn encounter wvrywcppf63/28/2025 9:00 AM EDT Office Visit [place] [address] [facility] [address] [place] [address] Michael Carrillo, RESOURCE CONSERVATION SPECIALIST-DATA ENTRY MANAGER [address] [facility] [address], [address] [place] [address] [facility]Start: 12-19-2024 End: 55-51-4083Tictiwf encounter eslfofiny64/22/2025 9:00 AM EDT [facility] [address] [place] [address] Tristian Bearden NP [address] [place] [address] [facility] CW FMStart: 60-58-4715MuszgsvqiMain Campus Medical Center Start: 43-12-6631Tprxhhtsdrtmamn of left heartCL *Left Heart Cath (LHC) (Left) [facility] 05-16-2025Medicare Annual Wellness (AWV) Medicare Annual Wellness (AWV)NOMS HealthcareStart: 12-03-2024 End: 36-52-4122Thcghun encounter fnzcbmclu38/06/2025 11:00 AM EDT Office Visit [facility] [address] [place] [address] Peter Ibrahim PA [address] [place] [address] ArrivedKINALHAMBRA [facility] DERMComment on above:ArrivedStart: 15-70-8944Gscchixyd for malignant neoplasm of breastMaogramNONV Healthcare Start: 00-45-1803VidiogkpfNewark Hospitaltart: 17-25-6617ZvubrotwlNewark Hospitaltart: 50-62-4387Xclon X-ray of left hipXR hip LT min 2V(w/wo pelvis)*[facility]: 60-72-7873ES Hip - left 2 ViewsNewark Hospitaltart: 10-17-2024 End: 53-12-0118TUH Heart and Coronary arteries WO and W contrast IVCT angiogram coronary arteries with or without scoring Imaging Routine Chest Pain, Unspecified TypeExpected: 10/17/2024, Expires: 10/17/2025[facility] Comment on above:Expected: 10/17/2024, Expires: 10/17/2025Start: 10-17-2024 End: 40-96-5940Eryxjkj encounter hnfhwcvuj27/20/2025 11:00 AM EDT Office Visit [facility] [address] [place] [phone] Marii Hurst MD [address] [place] [facility] [place] [address] [facility] CardiologyStart: 10-07-2024 End: 96-37-1049Hxgubkf encounter twtnayixd37/10/2025 8:00 AM EDT Office Visit [facility] [address] [place] [address] Tristian Bearden, ANIMATION CAMERA OPERATOR [address] [place] [address] [facility] CWM FMStart: 82-72-3711Klcki X-ray of bilateral wristsXR wrist min BI 3VNewark Hospitaltart: 81-32-9794OE Wrist - bilateral GE 3 ViewsNewark Hospitaltart: 09-06-2024 End: 46-96-3913Abzzrjs encounter procedureNOMS ENT NORWALKComment on above: 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Start: 08-29-2024 End: 97-70-4878Rbhcxtb encounter dnrkoajvi45/30/2025 8:30 AM EST Office Visit [facility] [address] [place] [address] Tristian Bearden, ANIMATION CAMERA OPERATOR [address] [place] [address] ArrivedNOMS CWM FMComment on above:ArrivedStart: 08-08-2024 Pneumococcal Vaccine: 65+ Years (1 of 2 - PCV)Pneumococcal Vaccine: 65+ Years (1 of 2 - PCV)NOMS HealthcareComment on above:Postponed from 1963 (Patient Refused)Start: 06-18-2024 End: 24-03-4771Soikyol encounter akiqattlj45/19/2024 8:30 AM EST Office Visit [facility] [address] [place] [address] Tristian Bearden, ANIMATION CAMERA OPERATOR [address] [place] [address] ArrivedNOMS CWM FMComment on above:ArrivedStart: 03-31-2024 COVID-19 Vaccine ( season)COVID-19 Vaccine ( season) [facility]: 17-36-4509Hwxlubbwe vaccinationNONV HealthcareStart: 52-06-7700JycfhltdeNewark Hospitaltart: 12-06-2023 Plain X-ray of left hipXR hip LT min 2V(w/wo pelvis)*[facility]: 43-81-4475GP Hip - left 2 ViewsMain [facility] Start: 10-23-2023 End: 48-71-1584LnbyzfecvNewark Hospitaltart: 58-83-5039Hgpy Risk ScreeningFall Risk ScreeningProPromedica Fostoria Community Hospital SystemStart: 77-39-4650MKY High Risk: (Elderly (60+) or Population) (1 - Risk 60-74 years 1-dose series)RSV High Risk: (Elderly (60+) or Population) (1 - Risk 60-74 years 1-dose series)[facility]: 2007 Administration of varicella zoster vaccineZoster (Shingles) Vaccine (1 of 2) [facility] Qonf SystemStart: 18-74-0271Ndaxjs Vaccines (1 of 2)Zoster Vaccines (1 of 2)[facility]: 99-60-6713Mkqbrlxvi for malignant neoplasm of breastMammogramUnUK Healthcare: 69-69-6521PHnI/Tdap/Td Vaccines (1 - Tdap)DTaP/Tdap/Td Vaccines (1 - Tdap) [facility]: 95-67-4858JWsR,Tdap and Td Vaccines (1 - Tdap)DTaP,Tdap and Td Vaccines (1 - Tdap)[facility] Qonf SystemStart: 20-13-6437Ruomhaexzpuo vaccinationPneumococcal Vaccine (1 of 2 - PCV)[facility]: 40-23-6023Chdorrdrtltn Vaccine: 65+ Years (1 of 2 - PCV)Pneumococcal Vaccine: 65+ Years (1 of 2 - PCV)[facility] HealthcareStart: 95-39-7245Gntcr BMI ScreeningAdult BMI ScreeningProOur Lady of Mercy Hospitaltart: 97-15-9338Nlxwtueg mellitus screeningDiabetes ScreeningMartins Ferry Hospital: 29-95-1249Slgxwxara C screeningHepatitis C ScreeningMartins Ferry Hospital: 58-49-0889Xhiloliphp ScreeningDepression Screening [facility] SystemStart: 64-27-4882Dpzlhbr ScreeningTobacco Screening [facility] SystemStart: 49-61-5904Nkhaibmdglwv Vaccine: 65+ Years (1 of 2 - PCV)Pneumococcal Vaccine: 65+ Years (1 of 2 - PCV)NOMS HealthcareStart: 84-68-9119Nklaz panelLipid PanelMartins Ferry Hospital: 1955Medicare Annual Wellness VisitMedicare Annual Wellness Visit (AWV) [facility]: 98-26-4913Toexvipue for malignant neoplasm of colonNONV HealthcareStart: 83-90-6233Omflyroql for malignant neoplasm of lungLung Cancer Screening Shared Decision MakingSEVIER VALLEY HOSPITAL Healthcare Start: 09-44-6413Hwwcqzfxp for osteoporosisBone Density [facility], AvonCardiac Catheterization - Onbase ScanCardiac Catheterization - Onbase Scan Cardiac Cath Routine Abnormal cardiac CT angiography Chest pain, unspecified type Ordered: 12/10/2024[facility] Service Area Work Phone: Comment on above:Ordered: 12/10/2024 End: 24-78-3530Grbvnzavyy includes GFR, serumCreatinine includes GFR, serum Lab Routine Chest pain, unspecified type 1 Occurrences starting 10/17/2024 until 10/17/2025[facility] SystemComment on above:1 Occurrences starting 10/17/2024 until 10/17/2025 End: 76-75-9763BB for calcium scoring WO contrast and CTA W contrast IV Heart and coronary arteriesPINON HEALTH CENTER Service Area Work Phone: Comment on above:Once for 1 Occurrences starting 08/26/2024 until 08/26/2024ECG 12 LeadECG 12 Lead ECG Routine Abnormal cardiac CT angiography 12/10/2024 1:00 PM [facility]Bl[facility] Work Phone: ECG, Hospital Report ScanECG, Hospital Report Scan ECG Routine Chest Pain, Unspecified Type Ordered: 10/17/2024[facility] Work Phone: Comment on above:Ordered: 10/17/2024Patient Education [facility] Work Phone: Patient [facility] Work Phone: Immunizations Immunization DateImmunizationNotesCare PhdaumxwSxbkuhbt72-50-7667LGLRF-82 mRNA, Compinky (Pfizer)PHYSICIAN NO [facility]07-18-2021 COVID-19 mRNA, Hasmukh (Pfizer)PHYSICIAN NO [facility] Payers DatePayer CategoryPayerPolicy [id number]-pay2025Medicare HMO [id number] 2024Medicare (Managed Care) [id number] Health [id number] Health [id number] 2..[id number] [id number] 1955 [id number] 2..1.649511.3.57[id number] 2..1.424488.3.57[id number] 2..1.464110.3.57[id number] 2..1.473739.3.57[id number] 2..1.507895.3.57[id number] 2..1.791816.3.57[id number] 2..1.079157.3.57[id number] 2..1.782193.3.57[id number] 2..1.079093.3.57[id number] 2..1.028850.3.57[id number] 2..1.719341.3.57[id number] 2..1.9[id number] 2..1.660254.3.579.2.531 [id number] 2..1.4[id number] 2..1.0[id number] 2..1.253132.3.579.2.531 [id number] 2..1.9[id number] 2.0.1.4[id number] 2..1.262812.3.579.2.531 Social History DateTypeDetailFacilityTobacco smoking status NHISUnknown if ever smokedMetrohealth [facility]tr Work Phone: Start: 59-98-2500Vjx [facility] 10-03-2023 End: 59-87-0070Igz Assigned At [facility] HealthcareStart: 09-21-2023 End: 00-09-4428Cmyvgul smoking status NHISEx-smoker (finding)[facility]2003 End: 90-46-7215Alykyun of tobacco useCurrent smokerNOMS HealthcareStart: 03-20-2003 End: 79-65-5088Bocpcju of tobacco useCigarette SmokerNOMS HealthcareStart: 12-14-2023 End: 27-63-2488Yhamyqhupf smoked current (pack per day) - Cuhppxki9EKHI HealthcareHistory of tobacco usePassive smokerNOMS HealthcareStart: 09-21-2023 End: 28-38-0742Mcsppni use and exposureSmokeless tobacco non-userNOMS Healthcare Start: 10-12-2023 End: 82-80-0602Vdeutbgfr beverage intakeCurrent drinker of alcohol (finding)[facility] HealthcareStart: 00-31-4905Yus often do you need to have someone help you when you read instructions, pamphlets, or other written material from your doctor or pharmacy [SILS]NeverNOMS HealthcareDo you belong to any clubs or organizations such as pentecostal groups, unions, fraternal or athletic groups, or school groups? YesNOMS HealthcareAre you now , , , , never or living with a partner?WidowedNOMS HealthcareHow often to you have a drink containing alcohol?4 or more times a weekNOMS HealthcareHow many standard drinks containing alcohol do you have on a typical day?1 or 2NOMS HealthcareHow often do you have 6 or more drinks on 1 occasion?NeverNOMS HealthcareHow hard is it for you to pay for the very basics like food, housing, medical care, and heatingNot very hardNOMS HealthcareDo you feel stress - tense, restless, nervous, or anxious, or unable to sleep at night because yourmind is troubled all the time - these days [OSQ]To some extentNOMS Healthcare(I/We) worried whether (my/our) food would run out before (I/we) got money to buy more.Never trueNOMS HealthcareIn the past 12 months, was there a time when you were not able to pay the mortgage or rent on time?NoNOMS HealthcareStart: 09-21-2023 Alcohol CommentOCCASSIONALNOMS HealthcareStart: 40-41-1031Vbn assigned at Not on fileNONV HealthcareTobacco smoking status NHISTobacco smoking consumption unknownSelect [facility] Work Phone: Start: 08-16-2024 End: 72-07-4128Fetytgkr to SARS-CoV-2 (event)Unable to assessSelect Medical Specialty Hospital - Cleveland-FairhillStart: 09-14-2024 End: 45-62-8668MwoDvwebr (finding)[facility]: 11-30-2024 End: 52-92-2617Qntpbfnz to SARS-CoV-2 (event)Not sureSelect Medical Specialty Hospital - Cleveland-FairhillNEGATED: Highlighted rowVeterans Health Administration Medical Equipment Procedure CodeEquipment CodeEquipment Original TextEquipment IdentifierDates Arthroplasty, hip, total, anterior approachAcetabular shell ()[id number] FDAStart: 03-79-3535Fouiumzgjthj, hip, total, anterior approachCeramic femoral head prosthesis ()[id number] FDAStart: 02-39-5655Ftffkofhjhdy, hip, total, anterior approachCoated hip femur prosthesis, modular ()[id number] FDAStart: 19-70-9779Jlkeqvrrnuhq, hip, total, anterior approachNon-constrained polyethylene acetabular liner ()[id number] FDAStart: 10-23-2023 Goals DatePatient GoalDesired Activity/State Functional Status SlugOrbcklccraRtfactPblddiga29-43-4827Sjcsv score [AUDIT-C]4 06/11/2024 8:49 AM EST Mychart, GenericSaint John's HospitalJhninkatdl95-43-0453Hwu often do you have a drink containing alcohol?4 or more times a week 06/11/2024 8:49 AM EST Mychart, Generic 4 or more times a weekSaint John's HospitalUkhivmmdsg02-97-9673Cmu many standard drinks containing alcohol do you have on a typical day?1 or 2 06/11/2024 8:49 AM EST Mychart, Generic 1 or 2NOMS Umralhcxep56-26-7111Zvd often do you have 6 or more drinks on 1 occasion?Never 06/11/2024 8:49 AM EST Mychart, Generic NeverSaint John's HospitalAikfoasrmd56-04-3183Iythgfr Health Questionnaire 2 item (PHQ-2) [Reported][facility] HospitalWuyeckmyld79-27-9725Ownrocb Health Questionnaire 2 item (PHQ-2) [Reported][facility] Clinical Notes 07-10-2023 to 01-03-2025 Note Date & NhckTvwkZnxusxwp82-28-6203 History of Present illness Narrative* Rogelio Coleman MD - 01/03/2025 11:12 AM EDTAssociated Problem(s): Centrilobular emphysema (CMS/HCC) No SOB and monitor. * Rogelio Coleman MD - 01/03/2025 11:11 AM EDTAssociated Problem(s): Former smoker Repeat LDCT chest. * Rogelio Coleman MD - 01/03/2025 11:11 AM EDTAssociated Problem(s): Hyperlipidemia (CMS/HCC) Lipids controlled with medication and continue. * Rogelio Coleman MD - 01/03/2025 10:30 AM EDT Images from the original note were not included. Subjective Patient ID: Nadya Rodriguez is a 69 y.o. female who presents for Follow-up (6m ). Follow up dyslipidemia. Patient stable today. Had abnormal calcium scoring of coronary arteries andseen by cardiology. CTA showed stenosis but heart [...] Addressed This Visit Hyperlipidemia (CMS/HCC) - Primary Lipids controlled with medication and continue. Former smoker Repeat LDCT chest. Relevant Orders CT lung screening low dose documented in this encounterSaint John's HospitalDdtsmbycww75-14-0380 Evaluation + Plan note* Assessment & Plan Note - THOMAS Gibson - 12/10/2024 4:20 PM EDT Associated Problem(s): Mixed hyperlipidemia High intensity statin [facility] Work Phone: 1(469) 472-195405-13-2025 Evaluation + Plan note* Assessment & Plan Note - THOMAS Gibson - 12/10/2024 4:20 PM EDTAssociated Problem(s): Chest pain, unspecified Reports episodes of chest tightness for a number of years. Has noted some mild progression of dyspnea on exertion. [facility] Work Phone: 1(780) 765-317605-13-2025 Miscellaneous Notes* Assessment & Plan Note - THOMAS Gibson - 12/10/2024 4:20 PM EDTAssociated Problem(s): Mixed hyperlipidemia High intensity statin * Assessment & Plan Note - THOMAS Gibson - 12/10/2024 4:20 PM EDT Associated Problem(s): Chest pain, unspecified Reports episodes of chest tightness for a number of years. Has noted some mild progression of dyspnea on exertion. * Assessment & Plan Note - THOMAS Gibson - 12/10/2024 4:19 PM EDT Associated Problem(s): Abnormal cardiac CT angiography December 06, 2024 cardiac CTA LAD: Moderate-severe stenosis of the proximal to mid LAD due to calcified plaque RCA: Mild stenosis of the proximal to mid RCA EF 58% * Addendum Note - THOMAS Gibson - 12/10/2024 1:00 PM EDTAddended by: MICHAEL CARRILLO on: 12/10/2024 04:25 PM Modules accepted: Orders documented in this encounterSelect Medical Specialty Hospital [facility] Work Phone: 1(695) 271-712405-13-2025 Evaluation + Plan note* Assessment & Plan Note - THOMAS Gibson - 12/10/2024 4:19 PM EDTAssociated Problem(s): Abnormal cardiac CT angiography December 06, 2024 cardiac CTA LAD: Moderate-severe stenosis of the proximal to mid LAD due to calcified plaque RCA: Mild stenosis of the proximal to mid RCA EF 58% [facility] Work Phone: 1(480) 630-335205-13-2025 History of Present illness Narrative* THOMAS Gibson - 12/10/2024 1:00 PM EDT Referred by PCP for abnormal cCTA. History Of Present Illness: Nadya Rodriguez is a 69 y.o. female presenting with recent cardiac CTA revealing moderate-severe stenosis of the proximal to mid LAD with calcified plaque, mild stenosis of the proximal to mid RCA. 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 Her mother approximately 1 year ago due to coronary artery disease, atrial fibrillationand congestive heart failure. Approximately 6 months later her from cancer. Patient reports that she became significantly concerned regarding her mother's history and was seen by her PCP provider in July 2024 and a calcium score was high . She was then evaluated by Dr. Gracia of [facility] cardiology and underwent a cardiac CTA [...] including but not limited to 1:1000 myocardial infarction,stroke, urgent coronary artery bypass graft and rare recorded : 1:100 vascular complications and contrast- induced acute renal failure. The patient is in agreement to proceed. Patient presents with no IVP allergies. Patient has no contraindication to antiplatelet therapy, noplanned surgical procedures in the near future. Last renal function has been reviewed (cr 0.8). Agrees to begin baby aspirin. Nitro sublingual education provided. Cardiovascular risk profile: No hypertension Treated hyperlipidemia No diabetes 62-tckv-fvdh history tobacco abuse, quit 8 years ago [...] 600 mg-10 mcg (400 unit) capsule Calcium Carbonate- Vitamin D3 Active 1CAP PO Daily October 10, 2023 12:00am cholecalciferol [...] 600 mg-10 mcg (400 unit) capsule Calcium Carbonate- Vitamin D3 Active 1CAP PO Daily October 10, 2023 12:00am cholecalciferol [...] making process incorporating patients unique circumstances, the followingtreatment plan will be initiated: 1. Prescription drug management of cardiovascular medication for efficacy, adherence to treatment, side effect assessment and polypharmacy. Current treatment clinically warranted and to continue withfollowing modifications: - Begin ASA 81mg daily 2. Cardiac cath with Dr. Olivarez (abnormal cardiac CTA with prox/mid LAD moderate-severe stenosis) 3. Return for follow-up; in the interim, contact the office if new symptoms arise. ANIMATION CAMERA OPERATOR after testing Michael Carrillo MSN, RESOURCE CONSERVATION SPECIALIST-DATA ENTRY MANAGER, PMHNP-[facility] [place], [place] Please excuse any errors in grammar or translation related to this dictation. Voice recognition software was utilized to prepare this document. [1] Family History Problem Relation Name Age of Onset Hyperlipidemia Mother Atrial fibrillation Mother Heart failure Mother Hypertension Mother COPD Mother Hyperlipidemia Father Hypertension Father Aneurysm Father COPD Father Hypertension Brother Hyperlipidemia Brother documented in this encounterSelect Medical Specialty Hospital [facility] Work Phone: 1(890) 528-746905-13-2025 Instructions* Patient Instructions* THOMAS Gibson - 12/10/2024 1:00 PM EDT [...] making process incorporating patients unique circumstances, the followingtreatment plan will be initiated: 1. Prescription drug management of cardiovascular medication for efficacy, adherence to treatment, side effect assessment and polypharmacy. Current treatment clinically warranted and to continue withfollowing modifications: - Begin ASA 81mg daily 2. Cardiac cath with Dr. Olivarez (abnormal cardiac CTA with prox/mid LAD moderate-severe stenosis) 3. Return for follow-up; in the interim, contact the office if new symptoms arise. ANIMATION CAMERA OPERATOR after testing documented in this encounterSelect Medical Specialty [facility] Work Phone: 1(929) 143-571205-13-2025 Note* Addendum Note - CLARENCE Gibson CNP - 12/10/2024 1:00 PM EDTAddended by: MICHAEL CARRILLO on: 12/10/2024 04:25 PM Modules accepted: Orders [facility] Work Phone: 1(411) 356-439805-11-2025 Radiology Diagnostic study [facility] [place] [address] [place] [address] CT Scan Report Signed with Addenda Patient: Nadya Rodriguez MR#: [id number] : 1955 Acct:[id number] Age/Sex: 69 / F ADM Date: 5 Loc: CT Room: Type: [facility] Attending Dr: Marii Hurst MD Copies to: [...] Mckenna M.D. 12/08/2024 12:10 PM Dictation Location: [place] [address] Addendum Dictated By: Aidan Mckenna II, MD Addendum Signed By: 12/08/241209 Addendum Cosigned By: DD/ /24/1210 TD/TT: 12/08/2406/24/1210 CLINICAL INDICATION: Patient Age: 69 years Patient Gender: Female Indication: Evaluation of coronary arteries for atherosclerosis or coronary anomalies TECHNIQUE: Image Acquisition: A CrowdSlinga View 128 was used for data acquisition. Bolus tracking in the descending aorta witha threshold of 150 HU media was performed. [...] mm slice thickness. Data was reviewed interactively didier advanced workstation capable of 2 and 3 dimensionaldisplays in all conventional reconstruction formats including multiplanar reformations, maximum intensity projections, curved multiplanar reformations, and volume rendered reconstructions. Selected routine images displaying relevantcoronary anatomy and pathology were saved and sent to PACS. Complications: None Technical Quality: Overall image quality is Good. Coronary artery opacification is Excellent. Misregistration artifactin the inferior scan field due to PVC. Total DLP (Dose-Length Product): 1199 mGy.cm). (16.7 mSv). Please note: The reported value represents the total of one or more individual components during the CT acquisition on this date and at thistime, and as such, the same value may [...] arteries. Distally provides the right PDA. Mild stenosisof the proximal to mid RCA due tofocal areas of calcified plaque. The distal RCA is not well-visualized due to misregistration artifact. 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 Cryotherapy today, see procedure note. Diagnosis: Inflamed seborrheic keratosis Indication: Inflamed Consent: Verbal consent was obtained and risks were discussed, including, but not limited to risks of scarring, darker or wellness program manager pigmentary changes, recurrence, incomplete removal and infection. [...] lesions that fail to resolve should be re- evaluated. Cryotherapy performed today; see procedure note Diagnosis: Actinic keratosis Indication: Precancerous Location: see skin exam Consent: Verbal consent was obtained and risks were discussed, including, but not limited to risks of scarring, darker or wellness program manager pigmentary changes, recurrence, incomplete removal and infection. [...] benign pigmented lesions that occur on sun-exposed andsun-damaged skin. No treatment is necessary. Recommended regular use of broad spectrum sunscreen SPF 30 or higher 5. CAPILLARY ANGIOMA Generalized Scattered joseph-red papule(s). The patient was informed that angiomas are benign growths on the the skin. No treatment is necessary. Next Visit: 1 year, skin check documented in this encounterSaint John's [id number] Evaluation note* Diagnosis Onset Date Resolution Status Admit Date Encounter for removal of sutures acuteApril 2024 8:56amOther specified postprocedural statesacuteApril 2024 8:56amRight carpal tunnel syndromeacuteApril 2024 8:56am [facility] Work Phone: 1(311) 216-609203-20-2025 History of Present illness Narrative* Marii Hurst MD - 10/17/2024 11:00 AM EDT Nadya Macielpricilla Date of visit: 10/17/2024 Date of : [...] SURGERY SECTION TONSILLECTOMY TOTAL HIP ARTHROPLASTY Right 2016 TOTAL HIP ARTHROPLASTY Left 2023 TUBAL LIGATION [...] Resource Strain: Low Risk (06/11/2024) [facility] Overall Financial Resource Strain (CARDIA) Difficulty of Paying Living Expenses: Not very hard Food Insecurity: No Food Insecurity (10/17/2024) Hunger Screening Food Insecurity - Worry: Never True Food Insecurity - Inability: Never True Transportation Needs: No Transportation Needs (06/11/2024) Received from [facility] PRAPARE - Transportation Lack of Transportation (Medical): No Lack of Transportation (Non-Medical): No Physical Activity: Insufficiently Active (06/11/2024) Received from [facility] Exercise Vital Sign Days of Exercise per Week: 3 days Minutes of Exercise per Session: 20 min Stress: Stress Concern Present (06/11/2024) Received from [facility] [place] [employer] - Occupational Stress Questionnaire Feeling of Stress : To some extent Social Connections: Moderately Isolated (06/11/2024) Received from [facility] Social Connection and Isolation Panel [NHANES] Frequency of Communication with Friends and Family: More than three times a week Frequency of Social Gatherings with Friends and Family: More than three times a week Attends Mu-Ism Services: Never Active Member of Clubs or Organizations: Yes Attends Club or Organization Meetings: More than 4 times per year Marital Status: Interpersonal Safety: Not on file Housing Instability: Low Risk (06/11/2024) Received from [facility] Housing Stability Vital Sign Unable to [...] ROGELIO COLEMAN MD Referring Physician: Tristian Bearden, RESOURCE CONSERVATION SPECIALIST-DATA ENTRY MANAGER [address] [place] [address] documented in [facility]Hol[facility] Miscellaneous Notes* Telephone Encounter - April Del Real MA - 10/16/2024 2:00 PM EDT Called patient to remind them to bring their most current copy of their medication list with them to their appt. Phone # has been disconnected or changed. JLW documented in this encounterHolzer [facility] [place]03-19-2025 Telephone encounter Note* Telephone Encounter - April Del Real MA - 10/16/2024 2:00 PM EDT Called patient to remind them to bring their most current copy of their medication list with them to their appt. Phone # has been disconnected or changed. JLW [facility] Qonf [id number] Evaluation note* Diagnosis Onset Date Resolution Status Admit Date Arthritis of carpometacarpal (CMC) joint of both thumbs acuteMarch 2024 10:20amRight carpal tunnel syndromeacuteMarch 2024 10:20amArthritis of carpometacarpal (CMC) joint of both thumbsacuteMarch 2024 9:46amRight carpal tunnel syndromeacuteMarch 2024 9:46amAftercare following left hip joint replacement surgeryacuteApr2024 9:36amPresence of left artificial hip jointacuteApr2024 9:36amEncounter for removal of suturesacuteApr2024 8:56amOther specified postprocedural statesacute Luciana 2024 8:56amRight carpal tunnel syndromeacuteApr2024 8:56am [facility] Work Phone: 1(396) 881-287002-15-2025 Evaluation note* Diagnosis Onset Date Resolution Status Admit Date Influenza A noneactiveFebruary 2024 9:49amArthritis of carpometacarpal (CMC) joint of both thumbsacuteMarch 2024 10:20amRight carpal tunnel syndromeacuteMarch 2024 10:20am [facility] Work Phone: 1(794) 254-115702-15-2025 Evaluation note* Diagnosis Onset Date Resolution Status Admit Date Influenza A noneactiveFebruary 2024 9:49amArthritis of carpometacarpal (CMC) joint of both thumbsacuteMarch 2024 10:20amRight carpal tunnel syndromeacuteMarch 2024 10:20amArthritis of carpometacarpal (CMC) joint of both thumbsacute October 24, 2024 9:46amRight carpal tunnel syndromeacuteMarch 2024 9:46am [facility] Work Phone: 1(550) 759-505202-15-2025 Evaluation note* Diagnosis Onset Date Resolution Status Admit Date Influenza A noneactiveFebruary 2024 9:49amArthritis of carpometacarpal (CMC) joint of both thumbsacuteMarch 2024 10:20amRight carpal tunnel syndromeacuteMarch 2024 10:20amArthritis of carpometacarpal (CMC) joint of both thumbsacute October 24, 2024 9:46amRight carpal tunnel syndromeacuteMarch 2024 9:46am Aftercare following left hip joint replacement surgeryacuteApril 2024 9:36amPresence of left artificial hip jointacuteApril 2024 9:36am [facility] Work Phone: 1(628) 606-955002-07-2025 History of Present illness Narrative* Billy Finch [...] Medicare annual wellness visit, subsequent 08/08/2023 Hyperlipidemia ([facility]) 08/08/2023 Arthritis of left hip 08/08/2023 Arthritis of left knee 08/08/2023 Screening mammogram, encounter for 08/08/2023 Encounter for screening for lung cancer 08/08/2023 Osteoarthritis of hip 09/21/2023 Left sided colitis with rectal bleeding ([facility]) 09/21/2023 Pre-operative clearance 10/03/2023 Centrilobular emphysema ([facility]) 10/03/2023 S/P hip replacement, left 12/27/2023 Psychophysiological insomnia 12/27/2023 Hair thinning 12/27/2023 Stress and adjustment reaction ([facility]) 12/27/2023 Family history of heart disease 06/18/2024 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 * Tristian Bearden, ANIMATION CAMERA OPERATOR - 08/29/2024 8:30 AM EST Images from [...] (Atarax) 25 MG tablet documented in this encounterSaint John's [id number] History of Present illness Narrative* Tristian Bearden [...] R ALBUMIN GLOBULIN RATIO 1.[address] [facility] on all screenings. Will repeat labs/testing in [...] with information and order. documented in this encounterSaint John's [id number] Instructions* Patient Instructions* Tristian Bearden NP - [...] brand stick with it. documented in this encounterSaint John's [id number] [facility] noteMain [facility] Evaluation note* Encounter Date Diagnosis Assessment Notes Treatment Notes Treatment Clinical Notes Jul, Primary osteoarthritis of left k nee (ICD-10 - M17.12) Jul,rimary osteoarthritis of left hip (ICD-10 - M16.12) Jul,Glenohumeral arthritis, left (ICD-10 - M19.012) Jul,Impingement syndrome, shoulder, left (ICD-10 - M75.42) Jul,Obesity, morbid, BMI 50 or higher (ICD-10 - E66.01) Jul,ge-related osteoporosis without current pathological fracture (ICD- 10 - M81.0) Jul,Other longterm (current) drug therapy (ICD-10 - Z79.899) Jul,OtherIn regards to her left shoulder, she is [...] hip arthroplasty. Patient is already had a righttotal hip arthroplasty and doing actually fantastic. She [...] her overall wellbeing at this time. We diddiscuss that we will need to hold off on any surgery until she has all things worked out with her mom in regards to providing her caregiver. I explained specifically to the patient that she cannot marcos caregiver from her mom and she in [...] all conservative treatment options to include: oral anti-inflammatories, physical therapy, and assistive devices. We will move forward with the definitive treatment option and schedule the patient for the above mentioned procedure after we have reviewed screening labs and clearances. Patient understands abnormal screening labs or absent clearances could delay their surgery. [facility] Other 12-14-2023 Evaluation note* Encounter Date Diagnosis Assessment Notes Treatment Notes Treatment Clinical Notes Jun, Primary osteoarthritis of left k nee (ICD-10 - M17.12) Jun,rimary osteoarthritis of left hip (ICD-10 - M16.12) Jun,lenohumeral arthritis, left (ICD-10 - M19.012) Jun,Impingement syndrome, shoulder, left (ICD-10 - M75.42) Jun,OtherIn regards to the left hip osteoarthritis, we [...] both the hip and the knee being efze-ik-qxqu arthritis I still feel that the most [...] her back in 6 weeks for reevaluation. [facility] Other 12-11-2023 Evaluation note* Encounter Date Diagnosis Assessment Notes Treatment Notes Treatment Clinical Notes Jun, Left hip pain (ICD-10 - M25.552) [facility] Other Evaluation noteNo assessment information available [facility] Work Phone: Evaluation note* Diagnosis Onset Date Resolution Status Primary osteoarthritis of left hip acute [facility] Work Phone: Evaluation note* Diagnosis Onset Date Resolution Status Primary osteoarthritis of left hip acuteAftercare following left hip joint replacement surgeryacutePresence of left artificial hip jointacuteAftercare following left hip joint replacement surgery acutePresence of left artificial hip jointacute [facility] Work Phone: Evaluation note* Diagnosis Onset Date Resolution Status Aftercare following left hip joint repla cement surgery acutePresence of left artificial hip jointacuteAftercare following left hip joint replacement surgeryacutePresence of left artificial hip jointacute [facility] Work Phone: Evaluation note* Diagnosis Medicare annual wellness visit, subsequent- Primary Other hyperlipidemia (CMS/HCC) RLS (restless legs syndrome) Restless legs syndrome (RLS) Screening mammogram, encounter for Encounter for screening for lung cancer Arthritis of left hip Routine general medical examination at health care facility Routine general medical examination at a [facility] care facility Left sided colitis with rectal [...] diagnosis of hypertension documented in this encounter [facility] Work Phone: Evaluation note* Diagnosis Medicare annual wellness visit, subsequent- Primary Other hyperlipidemia (CMS/HCC) RLS (restless legs syndrome) Restless legs syndrome (RLS) Screening mammogram, encounter for Encounter for screening for lung cancer Arthritis of left hip Routine general medical examination at [facility] care facility Routine general medical examination at a [facility] care [facility] Left sided colitis with rectal bleeding [...] facility Routine general medical examination at a [facility] care facility Left sided colitis with rectal [...] facility Routine general medical examination at a [facility] care facility Left sided colitis with rectal [...] Primary [facility] Diagnosis Medicare annual wellness visit, subsequent- Primary Other hyperlipidemia RLS (restless legs syndrome) Restless legs syndrome (RLS) Screening mammogram, encounter for Encounter for screening for lung cancer Arthritis of left hip Routine general medical examination at health care facility Routine general medical examination at a [facility] care facility Left sided colitis with rectal [...] BMI 24.0-24.9, adult documented in this encounter [facility] Work Phone: Evaluation note* Diagnosis Medicare annual [...] emphysema (CMS/HCC) documented in this encounter [facility]* Diagnosis Onset Date Resolution Status Admit Date Arthritis acuteOctober 2024 10:21amHyperlipidemiaacuteOctober 2024 10:21amMild emphysemaacuteOctober 2024 10:21am [facility] Work Phone: History and physical note Author Nazario Blue [facility] January 26, 2024 10:00amNote Date/TimeJune 2023 10:00[place] [address] Gastroenterology H&P Signed Patient: Nadya Rodriguez MR#: [id number] : 1955 Acct:[id number] Age/Sex: 68 / F Adm Date: 4 Loc: Room: Type: [facility] Attending Dr: Nazario Blue MD Copies to: MD Shaikh Maude Addison MD~ Date of Service: 01/26/2024 HISTORY & PHYSICAL: Patient's history with special attention to the cardiovascular, pulmonary systems and the current problem was reviewed with the patient immediately prior to the procedure. Present medications and doses reviewed in the EMR. Allergies and pertinent laboratory tests were also re viewedat this time in the EMR. The physical [...] signed by Nazario Blue MD> 01/26/24 1000 [facility] Work Phone: History general Narrative - Reported* Type Description Date Medical History hypercholesterolemia Medical Historyemphysema-mildSurgical HistoryC section c0Rffyeyzi History tonsillectomySurgical HistoryRTHASurgical Historyear surgery [facility] Other Hospital Discharge instructions Additional Instructions Joint Replacement Discharge Instructions Your safety during your recovery process is important to us. Please seek immediate emergency care if you have sudden chest pain or shortness of breath. Additionally, please call our office at [phone] should any of the following occur: wound [...] time or it could last forever. STEFANI kirkpatrick (dalia): Wear them for 4 weeks on the [...] to walk without your walker and your patient care until the therapist checks you the following [...] and/or laxatives as directed. You may take rkux-zuq-snkysof Benadryl if itching occurs without a rash or hives. Icing and elevation will help relieve pain as well, do not underestimate the power of ice and elevation. We do recommend that you stop taking narcotic pain medications by 4-6 weeks after surgery and if necessary, continue to use anti-inflammatory medications such as Mobic (meloxicam), Celebrex (celecoxib), or an uelt-pbm-xhoohjz medication (Aleve, Motrin, Ibuprofen, etc). Driving an [...] feel free to call our office at [phone]. You are a priority of ours and we will not be upset with you if you call. We would much rather you call to confirm aspects of your recovery process as opposed to possibly hindering your recovery with inappropriate care. We are committed to providing you with the best care possible. Luis Carlton II, MD Updated 08/21/23[facility] Work Phone: Hospital Discharge instructions Additional [...] years. -Follow up with PCP. -Office number [phone]. [facility] Work Phone: Hospital Discharge instructions Additional [...] be seen in one week. Office number: [phone] Memorial Hospital Work Phone: Hospital Discharge instructions Additional Instructions DISCHARGE INSTRUCTIONS FOR CARDIAC BRIDGE GAME DIRECTOR PROCEDURE: Heart Cath The following instructions have [...] cold, numb, blue or white, call the scheduling coordinator immediately. 4. ACTIVITY: You are advised to [...] bottle, follow the instructions on the bottle. [facility] is not responsible for incorrect prescription information provided by the patient during their visit. Do not stop your medications without consulting your health care provider. Please take the list with you to your next doctor's appointment.[facility] Work Phone: InstructionsNot on filedocumented in this encounter Lipocal[facility] SystemInstructionsNot on filedocumented in this encounter ProMSchrodinger SystemInstructionsNot on filedocumented in this encounter Lipocalyx SystemReason for referral (narrative)No reason for referral information availableElyria Memorial Hospital Work Phone: Reason for visit Narrative* Imaging (Routine) - Pending ReviewSpecialtyDiagnoses / ProceduresReferred By ContactReferred To ContactRadiology Diagnoses Hyperlipidemia, unspecified Family history of ischemic heart disease and other diseases of the circulatory system Elevated blood-pressure reading, without diagnosis of hypertension Procedures CT cardiac scoring wo IV contrast Natalia Bearden, RESOURCE CONSERVATION SPECIALIST-DATA ENTRY MANAGER [address] [facility] [address] [place] [id number] Phone: tel: fax: Referral IDStatusReasonStart DateExpiration DateVisits RequestedVisits [id number] Review Perform Procedure [facility] Work Phone: Summary Purpose Family History Relationship Condition Age at Onset Recorded Date/T logan father Hyperlipidemia Unknown Chronic obstructive pulmonary diseaseUnknownHypertensionUnknownAbdominal aortic aneurysm (AAA)UnknownNot SpecifiedCongestive heart failureUnknownAtrial fibrillationUnknownHyperlipidemiaUnknownbrotherHyperlipidemiaUnknown Relationship Condition Age at Onset Recorded Date/T logan father Hyperlipidemia Unknown Chronic obstructive pulmonary diseaseUnknownHypertensionUnknownAbdominal aortic aneurysm (AAA)UnknownmotherCongestive heart failureUnknownAtrial fibrillation UnknownHyperlipidemiaUnknownbrotherHyperlipidemiaUnknown Advance Directives Advance Directive Response Recorded Date/ Time Advance Directives No May 14, 2023 11:22am Advance Directive Response Recorded Date/ Time Advance Directives No May 14, 2023 10:22am Chief Complaint and Reason for Visit Chief Complaint E66.01 M81.0 Z79.899 Hip pain H&P LTHAReason for VisitPrimary osteoarthritis of left hip Chief Complaint E66.01 M81.0 Z79.899 Hip pain H&P LTHA Preop L THAReason for VisitPrimary osteoarthritis of left hip Chief Complaint E66.01 M81.0 Z79.899 Hip pain H&P LTHA Preop L COLTEN Hip pain Hip painReason for VisitPrimary osteoarthritis of left hip Chief Complaint E66.01 M81.0 Z79.899 Hip pain H&P LTHA Preop L COLTEN Hip pain Hip pain 2 WK POST OP LTHAReason for VisitPrimary osteoarthritis of left hip Chief Complaint E66.01 M81.0 Z79.899 Hip pain H&P LTHA Preop L COLTEN Hip pain Hip pain 2 WK POST OP LTHA 4 WK RECHECK Z96.642 - Presence of left artificial hip jointReason for VisitPrimary osteoarthritis of left hip Aftercare following left hip joint replacement surgery Presence of left artificial hip joint Aftercare following left hip joint replacement surgery Presence of left artificial hip joint Chief Complaint Hip pain Hip pain 2 WK POST OP LTHA 4 WK RECHECK Z96.642 Z47.1Reason for VisitAftercare following left hip joint replacement surgery Presence of left artificial hip joint Aftercare following left hip joint replacement surgery Presence of left artificial hip joint Chief Complaint 2 WK POST OP LTHA 4 WK RECHECK Z96.642 Z47.1 Colitis ColitisReason for VisitAftercare following left hip joint replacement surgery Presence of left artificial hip joint Aftercare following left hip joint replacement surgery Presence of left artificial hip joint Chief Complaint 2 WK POST OP LTHA 4 WK RECHECK Z96.642 Z47.1 Colitis Colitis Amb Documentation OP SP RECHECK LT HIP INCISIONReason for VisitAftercare following left hip joint replacement surgery Presence [...] left artificial hip joint Ap 2024 9:36am Encounter for removal of sutures [...] carpal tunnel syndrome November 22, 2024 8:56am Reason for Visit Admit Date Arthritis May 12, 2025 1 0:21am Hyperlipidemia May 12, 2025 1 0:21am Mild emphysema May 12, 2025 1 0:21am Additional Source Comments INFORMATION SOURCE (unrecogn ized section and content) DATE CREATED AUTHOR 11/24/2022 [facility] DATE CREATED AUTHOR AUTHOR'S ORGANIZ ATION 09/02/2024 [facility] DATE CREATED AUTHOR AUTHOR'S ORGANIZ ATION 10/19/2024 [facility] DATE CREATED AUTHOR AUTHOR'S ORGANIZ ATION 10/23/2024 [facility] DATE CREATED AUTHOR AUTHOR'S ORGANIZ ATION 12/17/2024 [facility] DATE CREATED AUTHOR AUTHOR'S ORGANIZ ATION 01/04/2025 [facility] DATE CREATED AUTHOR AUTHOR'S ORGANIZ ATION 04/16/2025 [facility] Care Teams (unrecognized sec tion and content) Team Status: Active Member Role Status Dates Rogelio Coleman MD Primary Care Provider Active Team Status: Inactive Member Role Status Dates Shaikh Maude MD Primary Care Provider Active Start: September 14, 2024 End: September 14Kareem Mcintyre ProviderActiveStart: September 14, 2024 End: September 14, 2024 Team Status: Inactive Member Role Status Dates Shaikh Maude MD Primary Care Provider Active Start: October 01, 2024 End: October 01, 2024Thomas Olexa , MDAttending ProviderActiveStart: October 01, 2024 End: October 01, 2024 Team Status: Inactive Member Role Status Dates Marii Rios MD Attending Provider Active Star t: October 01, 2024 End: October 01, 2024Shaikh Maude , MDPrimary Care ProviderActiveStart: October 01, 2024 End: October 01, 2024 Team Status: Active Member Role Status Dates aMrii Rios MD Attending Provider Active Star t: October 24, 2024 POP Whiterimary Care ProviderActiveStart: October 24, 2024 Team Status: Inactive Member Role Status Dates Marii Rios MD Attending Provider Active Star t: October 24, 2024 End: October 24, 2024POP Whiterimary Care ProviderActiveStart: October 24, 2024 End: October 24, 2024 Team Status: Active Member Role Status So Santoro MD Primary Care Provider Active Team Status: Inactive Member Role Status Dates Luis Carlton II, MD Attending Provider Active Start: November 08, 2023 End: November 08, 2023Shaikh Maude , MDPrimary Care ProviderActiveStart: November 08, 2023 End: November 08, 2023 Team Status: Inactive Member Role Status Dates Luis Carlton II, MD Attending Provider Active Start: December 06, 2023 End: December 06, 2023POP Fuentesrimary Care ProviderActiveStart: December 06, 2023 End: December 06, 2023 Team Status: Inactive Member Role Status So Santoro MD Primary Care Provider Active Start: January 26, 2024 End: January 26, 2024Nazario Blue MDAttending ProviderActiveStart: January 26, 2024 End: January 26, 2024 Team Status: Active Member Role Status So Santoro MD Primary Care Provider Active Start: January 26, 2024 Nazario Blue , MDAttending Provider, Other ProviderActiveStart: January 26, 2024 Team Status: Active Member Role Status Dates Luis Carlton II, MD Attending Provi ulysses, Other Provider Active Start: October 23, 2023 POP Fuentesrimary Care ProviderActiveStart: October 23, 2023 Team Status: Inactive Member Role Status Dates Luis Carlton II, MD Attending Provider Active Start: October 23, 2023 End: October 23, 2023Shaikh Maude , MDPrimary Care ProviderActiveStart: October 23, 2023 End: October 23, 2023 Team Status: Inactive Member Role Status Dates Luis Carlton II, MD Attending Provider Active Team Status: Inactive Member Role Status Dates PHYSICIAN NO FAMILY Primary Care Provider Active Start: September 26, 2023 End: September 26konstantin Carlton II, RAOttending ProviderActiveStart: September 26, 2023 End: September 26, 2023 Team Status: Inactive Member Role Status Dates Luis Carlton II, MD Attending Provider Active Start: October 10, 2023 End: October 10, 2023Shaikh Maude , MDPrimary Care ProviderActiveStart: October 10, 2023 End: October 10, 2023 Team Status: Active Member Role Status Dates Shaikh Maude MD Primary Care Provider Active Start: October 13, 2023 Sheyla Thomas IIending ProviderActiveStart: October 13, 2023 Team Status: Inactive Member Role Status Dates Luis Carlton II, MD Attending Provider Active Start: October 13, 2023 End: October 13, 2023POP Fuentesrimary Care ProviderActiveStart: October 13, 2023 End: October 13, 2023 Team Status: Inactive Member Role Status Dates Shaikh Maude MD Primary Care Provider Active Start: October 13, 2023 End: October 12konstantin Carlton II, MDAttending ProviderActiveStart: October 13, 2023 End: October 13, 2023 Team Status: Active Member Role Status Dates Luis Carlton II, MD Attending Provider Active Start: October 13, 2023 POP Fuentesrimary Care ProviderActiveStart: October 13, 2023 Team Status: Active Member Role Status Dates Luis Carlton II, MD Attending Provider Active Start: December 06, 2023 POP Fuentesrimary Care ProviderActiveStart: December 06, 2023 Team Status: Active Member Role Status Dates Shaikh Maude MD Primary Care Provider Active Start: January 29, 2024 Chanda Muñozending ProviderActiveStart: January 29, 2024 Team Status: Inactive Member Role Status Dates Shaikh Maude MD Primary Care Provider Active Start: January 30, 2024 End: January 29konstantin Carlton II, MDAttending ProviderActiveStart: January 30, 2024 End: January 30, 2024Team MemberRelationshipSpecialtyStart DateEnd Date Rogelio Coleman MD [address] [place] [address] [facility] Tristian Bearden NP [address] [place] [address] Nurse Practitioner[facility]05/15/24Team MemberRelationshipSpecialtyStart DateEnd Date Rogelio Coleman MD [address] [place] [address] [facility] - [facility]06/[facility]/24 Tristian Bearden NP [address] [place] [address] Nurse [facility]05/15/24Team MemberRelationshipSpecialtyStart DateEnd Date Rogelio Coleman MD [address] [place] [address] [facility] - [facility]06/[facility]/24 Tristian Bearden NP [address] [place] [address] [facility] Jeguknmx94/16/24Team MemberRelationshipSpecialtyStart DateEnd Date Rogelio Coleman MD [address] [place] [address] PCP - [facility]06/18/24 Tristian Bearden, JONI [address] [place] [address] Nurse [facility]05/15/24Team MemberRelationshipSpecialtyStart DateEnd Date Rogelio Coleman MD [address] [place] [address] PCP - [facility]06/18/24 Tristian Bearden, JONI [address] [place] [address] [facility]05/15/24Team MemberRelationshipSpecialtyStart DateEnd Date Rogelio Coleman MD [address] [place] [address] PCP - [facility]06/18/24 Tristian Bearden NP [address] [place] [address] [facility]05/15/24Team MemberRelationshipSpecialtyStart DateEnd Date Rogelio Coleman MD [address] [place] [address] PCP - GeneralFamily Prqlvuus05/19/24 Tristian Bearden NP [address] [place] [address] [facility] Abewabpb84/16/24 Team Status: Active Member Role Status Dates Marii Rios MD Attending Provider Active Star t: October 01, 2024 Bo Fuentes Care ProviderActiveStart: October 01, 2024 Team MemberRelationshipSpecialtyStart DateEnd Date Rogelio Coleman MD [address] [place] [address] [facility]10/17/24 Team Status: Active Member Role Status Dates Rogelio Coleman MD Primary Care Provider Active S tart: October 30, 2024 Christin Thomas II ProviderActiveStart: October 30, 2024 Team Status: Inactive Member Role Status Dates Luis Cralton II, MD Attending Provider Active Start: October 30, 2024 End: October 30, 2024Bo White Care ProviderActiveStart: October 30, 2024 End: October 30, 2024 Team Status: Inactive Member Role Status Dates Rogelio Coleman MD Primary Care Provider Active S tart: October 30, 2024 End: October 30, 2024Christin Thomas II ProviderActiveStart: October 30, 2024 End: October 30, 2024 Team Status: Active Member Role Status Dates Marii Rios MD Attending Provider, Other Provider A ctive Start: November 05, 2024 Bo White ProviderActiveStart: November 05, 2024 Team Status: Inactive Member Role Status Dates Marii Rios MD Attending Provider Active Star t: November 06, 2024 End: November 06, 2024Bo White Care ProviderActiveStart: November 06, 2024 End: November 06, 2024 Team Status: Inactive Member Role Status Dates Shaikh Maude MD Primary Care Provider Active Start: November 22, 2024 End: November 22omas Shahabbettina , MDAttending ProviderActiveStart: November 22, 2024 End: November 22, 2024Team MemberRelationshipSpecialtyStart DateEnd Date Rogelio Coleman MD [address] [place] [address] PCP - [facility]06/18/24 Tristian eBarden NP Nurse [facility]erP[facility]05/15/24Team MemberRelationshipSpecialtyStart DateEnd Date Rogelio Coleman MD [address] [place] [address] PCP - [facility]06/18/24 Tristian Bearden NP Nurse Pract[facility]erP[facility]05/15/24Team MemberRelationshipSpecialtyStart DateEnd Date Rogelio Coleman MD [address] [place] [address] PCP - [facility]12/10/24 Team Status: Inactive Member Role Status Dates Rogelio Coleman MD Primary Care Provider Active S tart: December 06, 2024 End: December 06omas Julisa ChunAris , RAOttending ProviderActiveStart: December 06, 2024 End: December 06, 2024Team MemberRelationshipSpecialtyStart DateEnd Date Rogelio Coleman MD [address] [place] [address] PCP - [facility]06/18/24 Tristian Bearden NP Nurse Pract[facility]erP[facility]05/15/24Team MemberRelationshipSpecialtyStart DateEnd Date Rogelio Coleman MD [address] [place] [address] PCP - [facility]06/18/24 Tristina Bearden NP Nurse Pract[facility]erP[facility]05/15/24Team MemberRelationshipSpecialtyStart DateEnd Date Rogelio Coleman MD [address] [place] [address] PCP - [facility]06/18/24 Tristian Bearden NP [facility]05/15/24 Team Status: Inactive Member Role Status Dates Rogelio Coleman MD Primary Care Provider Active S tart: December 12, 2024 End: December 12, 2024W Rajan Cassidy ProviderActiveStart: December 12, 2024 End: December 12, 2024 Team Status: Inactive Member Role Status Dates Rogelio Coleman MD Primary Care Provider Active S tart: December 16, 2024 End: December 16, 2024W Rajan Cassidy ProviderActiveStart: December 16, 2024 End: December 16, 2024 Team Status: Inactive Member Role Status Dates Rogelio Coleman MD Primary Care Provider Active S tart: December 18, 2024 End: December 18, 2024W Rajan Cassidy ProviderActiveStart: December 18, 2024 End: December 18, 2024Team MemberRelationshipSpecialtyStart DateEnd Date Rogelio Coleman MD [address] [place] [address] PCP - GeneralFamily Rbginmoj50/19/24 Tristian Bearden NP [facility]05/15/24 Team Status: Inactive Member Role Status Dates Rogelio Coleman MD Primary Care Provider Active S tart: May 12, 2025 End: May 12, 2025Jekeena Pollard , DOAttending ProviderActiveStart: May 12, 2025 End: May 12, 2025Team MemberRelationshipSpecialtyStart DateEnd Date Shaikh Santoro MD PCP - GeneralInternal Medicine Shaikh Santoro MD PCP - GeneralInternal Medicine09/21/2409 Unallocated, Maira Keating MD [address] [place] [address] PCP - Generalmily Hkeoboma92/16/ Rogelio Coleman MD [address] [place] [address] [facility] - [facility] Eqkrcsgt24/19/24 Shaikh Santoro MD [address] [place] [address] PCP - [facility]07/31/23 Tristian Bearden NP [facility] Hteiyipg43/16/24Team MemberRelationshipSpecialtyStart DateEnd Date Shaikh Santoro MD PCP - GeneralInternal Medicine09/21/2409 Unallocated, Maira Keating MD [address] [place] [address] PCP - Generalmily Hcsjewoh64/16/ Rogelio Coleman MD [address] [facility] [place] [address] [facility] - [facility] Tzfckdoq29/19/24 Shaikh Santoro MD [address] [place] [address] PCP - [facility]07/31/23 Tristian Bearden NP [facility] Gxgflogw94/16/24 Goals (unrecognized section and content) Goals may [...] FOR VISIT (unrecogniz ed section and content) ReasonCommentsFollow-upHyperlipidemiaReasonOnset DateCommentsMed Refill 08/22/2024ReasonCommentsSore ThroatReasonCommentsNeoplasm of uncertin behavior of oral cavitySpecialtyDiagnoses / ProceduresReferred By ContactReferred To ContactOtolaryngology Diagnoses 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 Procedures NM OFFICE/OUTPATIENT NEW HIGH MDM 60 MINUTES Tristian Bearden, ANIMATION CAMERA OPERATOR [address] [place] [address] Phone: tel: fax: Billy Finch MD [address] [place] [address] Phone: tel: fax: Referral IDStatusReasonStart DateExpiration DateVisits RequestedVisits [id number] Specialty Services Required /[id number] PatientHyperlipidemiaChest PainSpecialty Diagnoses / ProceduresReferred By ContactReferred To ContactCardiology Diagnoses Coronary artery calcification seen on CAT scan Procedures NM OFFICE OUTPATIENT VISIT 60-74 MINS HIGH MDM [id number] (SNOMED CT) - AMB REFERRAL TO CARDIOLOGY Tristian Bearden, RESOURCE CONSERVATION SPECIALIST-DATA ENTRY MANAGER [address] [facility] [place] [address] Phone: tel: fax: Marii Hurst MD [address] [place] [facility] [place] [address] Phone: tel: fax: Referral IDStatusReasonStart DateExpiration DateVisits RequestedVisits [id number] Review/[id number] CheckReason CommentsNew Patient VisitConsult -[facility] coronarySpecialtyDiagnoses / ProceduresReferred By ContactReferred To Contact Diagnoses Abnormal cardiac CT angiography Procedures ECG 12 Lead Michael Carrillo, RESOURCE CONSERVATION SPECIALIST-DATA ENTRY MANAGER [address] [facility] [address] [place] [address] Phone: tel: fax: Referral IDStatusReasonStart DateExpiration DateVisits RequestedVisits [id number]/13/20255/13/[id number]-vo3p FOR RECORDS PERTAINING TO PATIENTS WHO ARE [...] BE BASED ON THE PRIMARY CLINICAL RECORDS. [facility] Center[facility]. provides no warranty or guarantee of the accuracy or completeness of information in this document.
--- OUTSIDE RECORDS SUMMARY | 2025-06-22 07:49 | XMS_ITS | Clinical Summary ---
Author Organization [facility] Address [address] [place] [address] Phone Care Team Providers Care Gum Sprayer Name Role Phone Rogelio Elam MD Primary Care Provider + Allergies No known active allergies Medications MedicationSigDispense QuantityRefillsLast FilledStart DateEnd DateStatus rosuvastatin (Crestor) 20 mg tablet Take 1 tablet (20 mg) by mouth once daily in the morning. Take before meals. 04/29/2024ctive calcium carbonate-vitamin D3 600 mg-10 mcg (400 unit) capsule Calcium Carbonate-Vitamin D3 Active 1 CAP PO Daily October 10, 2023 12:00am 05/12/2023ctive magnesium oxide (Mag-Ox) 400 mg (241.3 mg elemental) tablet Take 1 tablet (400 mg) by mouth once daily.Active naproxen (Naprosyn) 500 mg tablet 1 tablet (500 mg) if needed.10/10/2023ctive cholecalciferol (Vitamin D3) 25 mcg (1,000 units) tablet Take 1 tablet (25 mcg) by mouth once daily.Active aspirin 81 mg chewable tablet Indications:Abnormal cardiac CT angiography,Chest pain, unspecified typeChew 1 tablet (81 mg) once daily. 30 tablet //ctive nitroglycerin (Nitrostat) 0.4 mg SL tablet Indications:Abnormal cardiac CT angiography,Chest pain, unspecified typePlace 1 tablet (0.4 mg) under the tongue every 5 minutes if needed for chest pain. May repeat dose every 5 minutes for up to 3 doses total. 100 tablet 11012/10//ctive Active Problems ProblemNoted DateDiagnosed DateAbnormal cardiac CT qeorqxstung30/13/2025 Assessment & Plan (12/10/2024 4:19 PM EDT): December 06, 2024 cardiac CTA LAD: Moderate-severe stenosis of the proximal to mid LAD due to calcified plaque RCA: Mild stenosis of the proximal to mid RCA EF 58% Chest pain, ntczugvpinr92/13/2025 Assessment & Plan (12/10/2024 4:20 PM EDT): Reports episodes of chest tightness for a number of years. Has noted some mild progression of dyspnea on exertion. Mixed xepyrfktruxdki90/13/2025 Assessment & Plan (12/10/2024 4:20 PM EDT): High intensity statin BMI 24.0-24.9, adult12/10/2024 Family History Medical HistoryRelationNameCommentsHyperlipidemiaBrotherHypertensionBrother AneurysmFatherCOPDFatherHyperlipidemiaFatherHypertensionFatherAtrial fibrillationMotherCOPDMotherHeart failureMotherHyperlipidemiaMotherHypertension MotherRelationNameStatusCommentsBrotherFatherMother Social History Tobacco UseTypesPacks/DayYears UsedDateSmoking Tobacco: FormerCigarettes Smokeless Tobacco: Never Tobacco Cessation:Counseling Given: Yes Alcohol UseStandard Drinks/XaagLxznnooiQna24 (1 standard drink = 0.6 oz pure alcohol)CommentsUnknownSex and Gender InformationValueDate RecordedSex Assigned at BirthNot on fileLegal UuiEscxtu72/19/2024 9:27 AM ESTGender Identity Not on fileSexual OrientationNot on file Last Filed Vital Signs Vital SignReadingTime TakenCommentsBlood Irrhkrhl684/60012/10/2024 1:11 PM EDT Drfll229612/10/2024 1:11 PM EDTTemperature--Respiratory Rate--Oxygen Saturation-- Inhaled Oxygen Concentration--Febitp32 kg (139 lb)12/10/2024 1:11 PM EDTHeight 160 cm (5' 3 )12/10/2024 1:11 PM EDTBody Mass Index24.62012/10/2024 1:11 PM EDT Plan of Treatment Health MaintenanceDue DateLast DoneCommentsCT Kkeeiigqmjvg1957FIT-DNA (Cologuard)1955FIT1955Lipid Panel1957Medicare Annual Wellness Visit (AWV)01/28/19579569Lbjzzbxbbcoxz1957MMR Vaccines (1 of 1 - Standard series)1958Diabetes Cwhwbmnvb42/01/1975Hepatitis C Deuefybvi05/01/1975 Pneumococcal Vaccine (1 of 2 - PCV)01/29/1976DTaP/Tdap/Td Vaccines (1 - Tdap) 01/28/19793492Mjvuiptkg37/01/1997RSV High Risk: (Elderly (60+) or Population) (1 - Risk 50-74 years 1-dose series)2007Zoster Vaccines (1 of 2)2007Bone Density Scan2022Influenza Vaccine (#1)5COVID-19 Vaccine ( - season)03/31/20250904Qwojqznwwka29/28/203406/4Colorectal Cancer Vdlmvqncv08/28/2034HIB VaccinesAged OutNo longer eligible based on patient's age to complete this topicHPV VaccinesAged OutNo longer eligible based on patient's age to complete this topicHepatitis A VaccinesAged OutNo longer eligible based on patient's age to complete this topicHepatitis B VaccinesAged OutNo longer eligible based on patient's age to complete this topicIPV Vaccines Aged OutNo longer eligible based on patient's age to complete this topic Meningococcal VaccineAged OutNo longer eligible based on patient's age to complete this topicRotavirus VaccinesAged OutNo longer eligible based on patient's age to complete this topic Insurance * Guarantor: Nadya KuhnAccount TypeRelation to PatientDate of BirthPhone Billing AddressPersonal/MreeoiLikd1955 [address] [place] [address] Care Teams Team MemberRelationshipSpecialtyStart DateEnd Date Rogelio Elam MD [facility]12/10/24
--- OUTSIDE RECORDS SUMMARY | 2025-06-22 07:50 | XMS_ITS | Patient Health Record ---
Author Organization 1.[facility] Address [address] [place], [place] [address] Care Team Providers Care Director Part Name Role Phone Tanner Davidson Primary Care Provider David Goodson Unavailable [phone] Vicente Sam Unavailable Unavailable Allergies Allergen (clinical drug ingredient) Drug/Non Drug Allergy documented on EMR Reaction Allergy Type Onset Date Status PCNUnknownDrug AllergyActive Reason For Referral No Information Medications Medication SIG (Take, Route, Frequency, Duration) Notes Start Date End Date Status Percocet ActivetraMADol HClActiveNaproxenActiveAtorvastatin CalciumActiveGlucosamine Active Social History Tobacco Use: Social History Observation Description Date Details (start date - stop date) Current Smoker NA - NA Social History Drugs/Alcohol:Social InfoQuestionAnswerNotesDrugsHave you used drugs other than those for medical reasons in the past 12 months?NoAlcohol ScreenPoints4 InterpretationPositiveTobacco Use:Social InfoQuestionAnswerNotesTobacco Use/SmokingAre you acurrent smoker? How often do you smoke cigarettes?every day? 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 [employer], has a college educationChildren:4 grown children Problems Problem Type SNOMED Code ICD Code Onset Dates Problem Status W/U Status Risk Notes Problem Displacement of lumb ar intervertebral disc without myelopathy (23136606) Lumbar disc displacement without myelopathy (M51.26) ActiveconfirmedProblemAcquired spondylolisthesis (859559280)Spondylolisthesis at L5-S1 level (M43.17)ActiveconfirmedProblemLumbar spinal stenosis (39981074) Lumbar spinal stenosis (M48.06)ActiveconfirmedProblemNeuropathy (813736476) Neuropathy (G62.9)Activeconfirmed Plan Of Treatment No Information Insurance Providers Payer Name Payer Address Payer Phone Subscriber Number Group Number Insured Name Patient Relationship to Insured Coverage Start Date Coverage End Date Nayeli Corrigan [address] [address] [place] [address] [phone] [id number] SharmaineNadya gomez Self - patient is the insured 0 Medical (General) History Medical History History ICD Code High Cholesterol Surgical History Surgery Date(Month/Year) tonsillectomy 1960 delivery 1987,1989 Feramanotomy 2006
--- OUTSIDE RECORDS SUMMARY | 2025-06-22 07:50 | XMS_ITS | Patient Health Record ---
Author Organization [facility] Billing Info Address [address] [place] [address] Care Team Providers Care Cobol Programmer Name Role Phone Tanner Sandhu Primary Care Provider MEHUL Erickson Unavailable [phone] KEV MORENO Unavailable [phone] Allergies Allergen (clinical drug ingredient) Drug/Non Drug Allergy documented on EMR Reaction Allergy Type Onset Date Status PenicillinUnknownDrug AllergyActive Reason For Referral No Information Medications Medication SIG (Take, Route, Frequency, Duration) Notes Start Date End Date Status Atorvastatin Calcium 20 MG 1 tablet Orally Once a day for 90 day(s) ActiveAspirin 81 MG1 tablet Orally every other dayActiveCalcium + D 315-200 MG-UNIT1 tablet Orally Twice a dayActive Social History Tobacco Use: Social History Observation Description Date Details (start date - stop date) Former Smoker NA - NA Tobacco Status: Question Answer Notes Patient is a former smoker Smokes 1 PPD Section Notes: Originally from [place], [place]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 Problems Problem Type SNOMED Code ICD Code Onset Dates Problem Status W/U Status Risk Notes Problem 766241750 Dyslipidemia (E78.5) ActiveconfirmedProblemVitamin D deficiency (42701506)Vitamin D insufficiency (E55.9)QfemcmzyhmvxfalCakwhez31956824Ahwqrfqlgtmbp of aorta (I70.0)Active confirmed Encounters Encounter Location Date Provider Diagnosis [id number] NA BATISTA MD [address] [place], [place] [id number] 09/12/2024 KEV MORENO Plan Of Treatment Future Test Test Name Order Date CARDIO IQ(R) ADVANCED LIPID PANEL ([id number]) 06/26/2018 ALT 02/13/2019 AST 02/13/2019 Lipid Panel(15464) 02/13/2019 Medical (General) History Medical History History ICD Code High cholesterol Surgical History Surgery Date(Month/Year) C section x2 tonsillectomyhip replacement, total, [id number]
--- OUTSIDE RECORDS SUMMARY | 2025-06-22 07:50 | XMS_ITS | Clinical Summary ---
Author Organization [facility] Address [address] [place] [address] Care Team Providers Care Small Piece Cutter Name Role Phone Mabel Bearden FLOUR BLENDER HELPER Unavailable [phone] Rogelio Coleman MD Primary Care Provider [phone] Catarina Rhodes FLOUR BLENDER HELPER Unavailable Allergies No known active allergies Medications MedicationSigDispense QuantityRefillsLast FilledStart DateEnd DateStatus rosuvastatin (Crestor) 20 MG tablet Indications:Hyperlipidemia, unspecified hyperlipidemia typeTake 1 tablet (20 mg) by mouth in the morning. 90 tablet 5Active Active Problems ProblemNoted DateDiagnosed DateFormer vyyvft7501/03/2025 Assessment & Plan (01/03/2025 11:11 AM EDT): Repeat LDCT chest. Family history of heart ubrwopk3706/18/2024 Assessment & Plan (06/18/2024 9:21 AM EST): [...] with information and order. S/P hip replacement, left12/27/2023 Assessment & Plan (12/27/2023 11:10 AM EDT): S/p hip replacement. Doing well. Psychophysiological kgyrtrxq07/29/2024 Assessment & Plan (12/27/2023 11:21 AM EDT): [...] like to use trazodone as needed Hair rbwetuab79/29/2024 Assessment & Plan (12/27/2023 11:24 AM EDT): Using biotin Likely from increased stress at home. Stress and adjustment ybhwnnfq51/29/2024 Assessment & Plan (12/27/2023 11:23 AM EDT): Increase stress at home. Reports excessive worrying. Her symptoms are worse at night and interfere with sleep. Otherwise, she does well throughout the day. She has never tried any medication for it. She is agreeable to try and use trazodone for insomnia. Centrilobular kodbuzykg80/05/2024 Assessment & Plan (01/03/2025 11:12 AM EDT): No SOB and monitor. Assessment & Plan (10/03/2023 10:15 AM EST): Mild centrilobular emphysema on LDCT, no symptoms concerning for obstructive airway disease. Formersmoker Quit 6 years ago. [facility]09[facility]2023 Assessment & Plan (08/08/2023 1:48 PM EST): [...] and she is now 68 years old. Txyjgcqqgcbybg91/09/2024 Assessment & Plan (01/03/2025 11:11 AM EDT): [...] C/w Lipitor as before. Arthritis of left hip08/08/2023 Assessment & Plan (10/03/2023 10:15 AM EST): [...] schedule it this year. Arthritis of left knee08/08/2023Encounter for screening for lung cancer 08/08/2023 Assessment & Plan (08/08/2023 1:42 PM EST): Quit 7 years ago. Former smoker - smoked for 50 years. More than 40 pack years hx. LDCT 04/21 - no concerning finding noted. Repeat LDCT for annual lung cancer screening. Benefits/risks associated with Lung Cancer screening discussed with patient. Questions and concernsaddressed/answered fully. Resolved Problems ProblemNoted DateDiagnosed DateResolved DateNeoplasm of uncertain behavior of oral drxudw23/12/2024 Assessment & Plan (08/29/2024 11:50 AM EST): [...] pain, report to nearest emergency room. Pre-operative lpefbgyyh03/12/2024 Assessment & Plan (10/03/2023 10:18 AM EST): [...] [facility]. Left sided colitis with rectal spmuffvh38/12/2024 Assessment & Plan (09/21/2023 11:01 AM EST): Recent ED visit for abdominal pain and rectal bleeding. CT abd showed colitis involving transverse,descending and sigmoid colon. Discharged on PO Cipro/flagyl. Patient reports she is feeling better.Tolerating PO diet. Denies n/v and rectal bleeding. She had colonoscopy for colon cancer screening in 2008 and since then she gets Cologuard for cancerscreening. Given recent bout of colitis - it is best that she gets Colonoscopy to r/o inflammatory bowel disease. Referred to GI. Screening mammogram, encounter for406/12/2024 Assessment & Plan (08/08/2023 1:43 PM EST): Ordered Mammogram. No prior hx of abnormal mammogram. Family History Medical HistoryRelationNameCommentsHyperlipidemiaBrotherBillHypertensionBrother BillHyperlipidemiaFatherBillHypertensionFatherBillHeart failureMotherSandy HyperlipidemiaMotherSandyHypertensionMotherSandyOsteoarthritisMotherSandyRheum arthritisMotherSandyRelationNameStatusCommentsBrotherBillFatherBillMotherSandy Social History Tobacco UseTypesPacks/DayYears UsedDateSmoking Tobacco: XtpkhoYoiprqncmd799 03/20/2003 - 03/20/2018Passive Smoke Exposure: PastSmokeless Tobacco: Never Tobacco Cessation:Counseling Given: Not Answered Alcohol UseStandard Drinks/BimuIyjomdiwVag38 (1 standard drink = 0.6 oz pure alcohol)IDLVOOWZABQN8069 Health LiteracyAnswerDate RecordedHow often do you need to have someone help you when you read instructions, pamphlets, or other written material from your doctor or pharmacy?Never06/11/2024Social Connection and Isolation PanelAnswerDate RecordedIn a typical week, how many times do you talk on the phone with family, friends, or neighbors?More than three times a week 06/11/2024How often do you get together with friends or relatives?More than three times a week06/11/2024How often do you attend rastafari or methodist services?Never4Do you belong to any clubs or organizations such as rastafari groups, unions, fraternal or athletic groups, or school groups?Yes 06/11/2024How often do you attend meetings of the clubs or organizations you belong to?More than 4 times per year4Are you , , , , never , or living with a partner?Qwwxwso3606/11/2024 AUDIT-CAnswerDate RecordedQ1: How often do you have a drink containing alcohol?4 or more times a week06/11/2024Q2: How many drinks containing alcohol do you have on a typical day when you are drinking?1 or Q3: How often do you have six or more drinks on one occasion?Never06/11/2024Overall Financial Resource Strain (CARDIA)AnswerDate RecordedHow hard is it for you to pay for the very basics like food, housing, medical care, and heating?Not very hard06/11/2024 PHQ-2AnswerDate RecordedPatient Health Questionnaire-2 Thkjd806Finuint[facility] [place] [facility] Occupational [facility] - Occupational Stress QuestionnaireAnswerDate RecordedDo you feel stress - tense, restless, nervous, or anxious, or unable to sleep at night because yourmind is troubled all the time - these days?To some rcrpnu6206/11/2024Exercise Vital SignAnswerDate RecordedOn average, how many days per week do you engage in moderate to strenuous exercise (like a brisk walk)?3 days06/11/2024On average, how many minutes do you engage in exercise at this level?20 min06/11/2024Hunger Vital SignAnswerDate RecordedWithin the past 12 months, you worried that your food would run out before you got the money to buy more.Never true06/11/2024Within the past 12 months, the food you bought just didn't last and you didn't have money to get more.Never true06/11/2024RAPARE - TransportationAnswerDate RecordedIn the past 12 months, has lack of transportation kept you from medical appointments or from getting medications?No 06/11/2024In the past 12 months, has lack of transportation kept you from meetings, work, or from getting things needed for daily living?No06/11/2024 Housing Stability Vital SignAnswerDate RecordedIn the last 12 months, was there a time when you were not able to pay the mortgage or rent on time?No06/11/2024In the past 12 months, how many times have you moved where you were living?0 11/12/2024At any time in the past 12 months, were you homeless or living in a long term (including now)?No4CommentsNoSex and Gender Information ValueDate RecordedSex Assigned at BirthNot on fileLegal WwnHrpgdz90/16/2023 5:23 PM EDTGender IdentityNot on fileSexual OrientationNot on file Last Filed Vital Signs Vital SignReadingTime TakenCommentsBlood Nrumvdzi887/6006 10:27 AM EDT Cuitn054501/03/2025 10:27 AM YBTKvjyyppvtgr56.2 ??C (97.1 ??F)01/03/2025 10:27 AM EDTRespiratory Mjmh354301/03/2025 10:27 AM EDTOxygen Gfldsijyjf97%01/03/2025 10:27 AM EDTInhaled Oxygen Concentration--Cdfzcc82 kg (139 lb)01/03/2025 10:27 AM EDT Fbobrp583 cm (5' 3 )01/03/2025 10:27 AM EDTBody Mass Index24.62001/03/2025 10:27 AM EDT Plan of Treatment DateTypeDepartmentCare Team (Latest Contact Info)Sbuabzyzgrl54/06/2026 11:00 AM EDTOffice Visit [facility] [address] [place] [address] April Ibrahim PA [address] [place] [address] Health MaintenanceDue DateLast DoneCommentsCT Otnnscfxsmam1957FIT 1957FOBT1957Lung Cancer Screening Shared Decision Txyevu2601/28/1955 Eohtsbrreszyj1957Pneumococcal Vaccine: 65+ Years (1 of 2 - PCV)01/29/1976 Medicare Annual Wellness (AWV)/, 08/08/2023, 09/13/2022OVID- 19 Vaccine ( season)/02/2021, 02/14/2021Influenza Vaccine (#1)2025FIT-DNA5108/21/20210023Rnggrwywi90, 1250Zivfmvldllp65olorectal Cancer Qgieimmvp26/18/2027 Procedures Procedure NamePriorityDate/TimeAssociated DiagnosisCommentsMM TOMOSYNTHESIS SCREENING BI03/12/2025 2:20 PM EDT from Last 3 Months or Most Recently Relevant to Health Maintenance Results * MM TOMOSYNTHESIS SCREENING BI (03/12/2025 2:20 PM EDT)Anatomical Region LateralityModalityOtherSpecimen (Source)Anatomical Location / Laterality Collection Method / VolumeCollection TimeReceived Time03/12/2025 2:20 PM EDT Narrative 03/12/2025 2:21 PM EDT [facility] ?[address] ? [place] [address] ? Mammography Report ? Signed ? Patient: NADYA KUHN L ?MR#: [id number] ?? : 1955 ?Acct:[id number] ?? Age/Sex: 70 / F ?ADM Date: 03/12/25 ?? Loc: MAMMO ? Attending Dr: Rogelio Coleman M.D. ? Ordering Physician: Rogelio Coleman M.D. ?Results: ? Date of Service: 03/12/25 ?Follow Up: ? Procedure(s): MM tomosynthesis screening BI ?? Accession Number(s): [id number] ? cc: Rogelio Coleman M.D. ? Patient Name: ? NADYA KUHN ? MR#: [id number] ? : 1955 ? Exam Date: 03/12/2025 ?? Ordering Doctor: DR ROGLEIO COLEMAN . ? RADIOLOGY REPORT ? PROCEDURE: ? MM TOMOSYNTHESIS SCREENING BI ? COMPARISON: ? MM TOMOSYNTHESIS SCREENING BI, 11/29/2023. ??MG MAMM SCREEN 3D ?? ARCHIE CAD, 10/27/2022. ? INDICATIONS: ? Screening ? Calculator Name ? NCI Breast Cancer Risk Assessment Tool ?? 5 Year Breast Cancer Risk ? 1.40% ?? Lifetime Breast Cancer Risk ? 4.40% ?? Personal Breast Cancer ?No ?? Personal Ovarian Cancer ? No ?? Treatments ? None ?? Family Cancers ? None ? LOCATION: ? [facility] ? BREAST COMPOSITION: ? There are scattered areas of fibroglandular density. ? FINDINGS: ?? RIGHT BREAST: ??No significant suspicious finding. ? LEFT BREAST: ??No significant suspicious finding. ? DIAGNOSTIC CATEGORY 1--NEGATIVE. ? RECOMMENDATIONS: ? ROUTINE MAMMOGRAM AND CLINICAL EVALUATION IN 12 MONTHS. ? PLEASE NOTE: ??A NORMAL MAMMOGRAM DOES NOT EXCLUDE THE POSSIBILITY OF BREAST ?? CANCER. ??A CLINICALLY SUSPICIOUS PALPABLE LUMP SHOULD BE BIOPSIED. ? Dictated by: Juan Antonio Roberts MD on 03/12/2025 at 14:14 ? Approved by: Juan Antonio Roberts MD on 03/12/2025 at 14:19 ? Dictated By: ?Juan Antonio Roberts M.D. ? Signed By: ?03/12/251420 ? DD/ 19 ? TD/TT: ? Supervisor Shearing: Procedure Note Radiology, Radiologist, MD - 03/12/2025 [place] [address] Mammography Report Signed Patient: NADYA KUHN LMR#: [id number] : 7Acct:[id number] Age/Sex: 70 / FADM Date: 03/12/25 Loc: MAMMO Attending Dr: Rogelio Coleman M.D. Ordering Physician: Rogelio Coleman M.D.Results: Date of Service: 03/12/25Follow Up: Procedure(s): MM tomosynthesis screening BI Accession Number(s): [id number] cc: Rogelio Coleman M.D. Patient Name: NADYA KUHN MR#: [id number] : 1955 Exam Date: 03/12/2025 Ordering Doctor: DR ROGELIO COLEMAN . RADIOLOGY REPORT PROCEDURE: MM TOMOSYNTHESIS SCREENING BI COMPARISON: MM TOMOSYNTHESIS SCREENING BI, 11/29/2023. MG MAMM JXPXGA2T ARCHIE CAD, 10/27/2022. INDICATIONS: Screening Calculator Name NCI Breast Cancer Risk Assessment Tool 5 Year Breast Cancer Risk 1.40% Lifetime Breast Cancer Risk 4.40% Personal Breast Cancer No Personal Ovarian Cancer No Treatments None Family Cancers None LOCATION: [facility] BREAST COMPOSITION: There are scattered areas of fibroglandulardensity. FINDINGS: RIGHT BREAST: No significant suspicious finding. [...] Dictated By: Juan Antonio Roberts M.D. Signed By:03/12/25 1421 DD/ 1420 TD/TT: Supervisor Shearing: Authorizing ProviderResult TypeResult StatusCatiec Papa MDCLINISYNC IMAGING Final Result from Last 3 Months or Most Recently Relevant to Health Maintenance Insurance Lot #[id number] [place] [id number] Care Teams Team MemberRelationshipSpecialtyStart DateEnd Date Rogelio Coleman MD [address] [place] [address] PCP - GeneralFamily Guzrzgun93/19/24 Catarina Rhodes NP [address] [place] [address] PCP - [facility]07/31/23 Mabel Bearden NP Nurse PractitionerFamily Dygohpmz29/16/24
--- OUTSIDE RECORDS SUMMARY | 2025-06-22 07:50 | XMS_ITS | Patient Health Record ---
Author Organization [facility] [place] Address [address] [place] [address] Support Name Relationship Address Phone [facility] Contact Unknown [phone] Nadya Kuhn Guarantor Unknown [phone] Reason For Referral No Information Plan Of Treatment No Information Insurance Providers Payer Name Payer Address Payer Phone Subscriber Number Group Number Insured Name Patient Relationship to Insured Coverage Start Date Coverage End Date SELF PAY ON PATIENT DEMOGRAPHICS Eliane Kuhn - patient is the rforjsm3405/04/2010
--- OUTSIDE RECORDS SUMMARY | 2025-06-22 07:50 | XMS_ITS | Clinical Summary ---
Author Organization [employer] [facility] tem Address [id number] [address] [place] [address] Care Team Providers Care Insurance Special Agent Name Role Phone Rogelio Elam MD Primary Care Provider [phone] Allergies No known active allergies Medications MedicationSigDispense QuantityRefillsLast FilledStart DateEnd DateStatus rosuvastatin (CRESTOR) 20 mg tablet Take 1 tablet (20 mg total) by mouth in the morning.5Active hydrOXYzine (ATARAX) 25 mg tablet Take 1 tablet (25 mg total) by mouth every 8 (eight) hours as needed.08/29/2024 Active magnesium oxide (MAGOX) 400 mg tablet Take 1 tablet (400 mg total) by mouth in the morning.Active naproxen (EC NAPROSYN) 375 MG tablet,delayed release (DR/EC) EC tablet Take 500 mg by mouth 2 (two) times a day as needed for pain.Active metoprolol tartrate (LOPRESSOR) 50 mg tablet Take 1 tablet (50 mg) [address] and 1 tablet (50 mg) [address] 2 tablet 5Active Active Problems ProblemNoted DateDiagnosed DateChest pain10/17/2024 Family History Medical HistoryRelationNameCommentsHyperlipidemiaFatherHypertensionFatherHeart diseaseMaternal GrandfatherHeart diseaseMaternal GrandmotherHyperlipidemiaMother RelationNameStatusCommentsFatherMaternal GrandfatherMaternal GrandmotherDeceased MotherPaternal GrandmotherDeceased Social History Tobacco UseTypesPacks/DayYears UsedDateSmoking Tobacco: Never AssessedChildcare AnswerDate MpvgknfjXlvevzljaWjsrqhh38/12/2019EmploymentAnswerDate Recorded OzyyfukzxzXjuntvz09/12/2019Hunger ScreeningAnswerDate RecordedWithin the past 12 months we worried whether our food would run out before we got money to buy more.Never True10/17/2024Within the past 12 months the food we bought just didn't last and we didn't have money to get more.Never True10/17/2024 CommentsUnknownSex and Gender InformationValueDate RecordedSex Assigned at Not on fileLegal OuwYndimm13/04/2015 9:48 PM EDTGender IdentityNot on fileSexual OrientationNot on file Last Filed Vital Signs Vital SignReadingTime TakenCommentsBlood Ltemlmex295/8003 10:45 AM EDT Khrlm596510/17/2024 10:45 AM EDTTemperature--Respiratory Rate--Oxygen Saturation-- Inhaled Oxygen Concentration--Kfsjoj97.8 kg (134 lb)10/17/2024 10:45 AM EDT Cahfxg339.2 cm (5' 7 )10/17/2024 10:45 AM EDTBody Mass Index20.9910/17/2024 10:45 AM EDT Plan of Treatment Health MaintenanceDue DateLast DoneCommentsDepression Akvqpgysg66/01/1969Tobacco Fxiveqlpa23/01/1969DTaP,Tdap and Td Vaccines (1 - Tdap)01/29/1976Zoster (Shingles) Vaccine (1 of 2)2007Fall Risk Uiubcwebt37/01/2022Influenza Vuvutah4003/31/2025dult BMI Lkdwulkwl05RSV ( or age 60+ yrs) (1 - 1-dose 75+ series)01/29/2032 Medical Devices Not on file Insurance * Guarantor: Nadya Kuhn TypeRelation to PatientDate of BirthPhone Billing AddressPersonal/DyszhdOpav1955 [address] [place] [address] Care Teams Team MemberRelationshipSpecialtyStart DateEnd Date Rogelio Elam MD [facility]
[2025-06-22 08:17] LABS: Hematocrit 44.9 % (36.0-48.0); Hemoglobin 14.7 g/dL (12.0-16.0); Immature Granulocytes Abs Auto 0.03 10^3/uL (0.00-0.03); Immature Granulocytes Pct Auto 0.3 % (0.0-0.5); Lymphocytes Absolute Auto 0.7 10^3/uL (1.2-3.8); Mean Corpuscular HGB Conc 32.7 g/dL (29.9-35.2); Mean Corpuscular Hemoglobin 30.4 pg (26.7-34.0); Mean Corpuscular Volume 92.8 fL (81.0-99.0); Platelet Count 142 10^3/uL (150-450); Red Blood Count 4.84 10^6/uL (4.20-5.40); White Blood Count 9.6 10^3/uL (4.0-11.0)
[2025-06-22] MEDS: FAMOTIDINE/PF 20 MG/2 ML VIAL IV (08:17)
[2025-06-22] MEDS: KETOROLAC TROMETHAMINE 30 MG/ML VIAL 15 MG IVP (08:18)
[2025-06-22] MEDS: MORPHINE SULFATE 2 MG/ML SYRINGE IV (08:21)
[2025-06-22 08:38] LABS: Alanine Aminotransferase 26 U/L (14-59); Albumin Globulin Ratio 1.4; Albumin Level 4.4 g/dL (3.4-5.0); Alkaline Phosphatase 153 U/L (46-116); Anion Gap 17.0; Aspartate Amino Transferase 21 U/L (15-37); Blood Urea Nitrogen 19.0 mg/dL (7.0-18.0); Calcium 9.6 mg/dL (8.5-10.1); Carbon Dioxide 24.8 mmol/L (21.0-32.0); Chloride 104 mmol/L (98-107); Estimated GFR (African America >60 (>=60 mL/min/1.73m^2); Estimated GFR (Non-African Ame >60 (>=60 mL/min/1.73m^2); Globulin 3.2 g/dL; Glucose 136 mg/dL (74-106); Potassium 3.8 mmol/L (3.5-5.1); Sodium 142 mmol/L (136-145); Total Protein 7.6 g/dL (6.4-8.2)
[2025-06-22 09:01] LABS: Lactate/Lactic Acid 2.5 mmol/L (0.4-2.0)
--- NOTE | 2025-06-22 09:20 | CT_ITS ---
The [address] [address] Patient Name: NURY RODRIGUEZ MRN: [id number] date: 1955 Sex: F Assigned Patient Location: ER Current Patient Location: ER Accession/Order Number: [id number] Exam Date: 06/22/2025 10:30 Report Date: 06/22/2025 10:51 At the request of: ILIR DIAL MD Procedure: CT abdomen pelvis w con CT ABDOMEN AND PELVIS WITH INTRAVENOUS CONTRAST: CLINICAL HISTORY: lower abd pain lower gi bleeding COMPARISON: CT abdomen and pelvis 09/17/2023 TECHNIQUE: Spiral images were obtained through the abdomen and pelvis following the administration of intravenous contrast. This CT exam was performed using one or more following dose reduction techniques: Automated exposure control, adjustment of the mA and/or kV according to patient size, or use of iterative reconstruction technique. FINDINGS: Lung Bases: [Bibasilar atelectasis/scarring.] Organs:Hepatic steatosis. Portal vein gallbladder spleen pancreas and adrenal glands appear unremarkable. Cystic changes involving the kidneys. Aorta appears normal in caliber.[ GI: Stomach is grossly unremarkable. Small bowel appears nondilated. Wall thickening involving the transverse and left colon with mild inflammatory changes suspicious for colitis. No obstruction. Appendix normal.[ Pelvis:[Suboptimal evaluation due to streak hardware artifact from the patient's bilateral hip prostheses. No acute gross abnormality is seen.] Peritoneum/Retroperitoneum:No free air, free fluid or lymphadenopathy.[ Abd wall/Bones:Abdominal wall demonstrates no acute findings. Osseous structures demonstrate degenerative change.[ CT/CT abdomen pelvis w con IMPRESSION: Colitis involving the transverse and left colons. No obstruction. A similar finding was seen on the prior study from 09/17/2023. Impression dictated by: Nilo Hightower Jr., D.O. 06/22/2025 10:51 AM Dictation Location: [facility] Electronically authenticated by: [id number] Date: 06/22/2025 10:51
[2025-06-22] MEDS: 0.9 % SODIUM CHLORIDE 1,000 ML 1000 ML IV (09:42)
--- NOTE | 2025-06-22 11:07 | ED_ITS ---
HPI - Abdominal Pain General Chief Complaint: Abdominal Pain Stated Complaint: severe abdominal pain and rectum bleeding Time Seen by Provider: 06/22/25 07:54 Source: patient Mode of arrival: Wheelchair History of Present Illness HPI narrative: The patient is a 70-year-old female with history of colitis presenting to the ER with a left lower abdominal pain that started over the last 24 hours she mentioned that she did had some blood in her stool as well over the last few hours early in the morning. She mentioned that initially it was some blood with the bowel movement but then she noticed some blood that is liquid she is denying any vomiting but she has some nausea she denies any other concern no fever chills or any other plaints A year ago when she had colitis she had a colonoscopy after that and it was within normal Related Data Home Medications ?Medication ?Instructions ?Recorded ?Confirmed rosuvastatin 20 mg tablet 20 mg PO DAILY 06/22/2506/01 Previous Rx's ?Medication ?Instructions ?Recorded ciprofloxacin HCl 500 mg tablet 500 mg PO BID #14 tabs 06/22/25 metronidazole 500 mg tablet 500 mg PO Q8H 7 days #21 t abs 06/22/25 oxycodone-acetaminophen 5 mg-325 1 tab PO Q8H PRN pain 3 days #9 06/22/25 mg tablet (Percocet) tabs Allergies Allergy/AdvReac Type Severity Reaction Status Date / Time No Known Drug Allergies Allergy Verified 06/22/25 07:44 Review of Systems ROS Status of ROS 10 or more systems reviewed and unremark able except as noted in history and below PFSH PFSH Social History Little interest or pleasure in doing things: not at all Feeling down, depressed, or hopeless: not at all Exam Narrative Exam Narrative: Nurses notes and vital signs reviewed and patient is not hypoxic. General: Well-appearing and in no apparent distress. Skin: Warm, dry, no pallor noted. No rash. Head: Normocephalic, atraumatic. Neck: Supple, non-tender. Cardiovascular: Regular Rate and Rhythm without murmur, gallop or rub. Respiratory: No accessory muscle use or respiratory distress. Lungs are clear to auscultation, no wheezing, rales or rhonchi Chest Wall: no tenderness Back: No midline thoracic or lumbar vertebral tenderness. No CVA tenderness Musculoskeletal: normal ROM, no calf or popliteal tenderness, no lower extremity edema/swelling GI: Abdomen is soft, non-distended. Normal bowel sounds. Left lower abdominal tenderness Neurological: A&O x4. No cranial nerve dysfunction observed. No truncal ataxia. Moves all extremities. Sensation intact. Psychiatric: Cooperative and interactive. Normal mood and affect. Constitutional Vital Signs, click to edit/add: Last Vital Signs Temp 97.6 F 06/22/25 07:45 Pulse 78 06/22/25 07:45 Resp 18 06/22/25 07:45 BP 112/76 06/22/25 12:00 Pulse Ox 97 06/22/25 12:10 O2 Del Method Room Air 06/22/25 07:45 Course Vital Signs Vital signs: Vital Signs Blood Pressure 128/77 06/22/25 07:42 Pulse Oximetry 98 06/22/25 07:42 Temperature 97.6 F 06/22/25 07:45 Pulse Rate 78 06/22/25 07:45 Respiratory Rate 18 06/22/25 07:45 Blood Pressure 112/76 06/22/25 12:00 Pulse Oximetry 97 06/22/25 12:10 Oxygen Delivery Method Room Air 06/22/25 07:45 MDM - Abdominal Pain MDM Narrative Medical decision making narrative: Patient CBC and chemistry showed no acute pathology with no leukocytosis CAT scan showed that the patient have colitis for the left and transverse colon The patient was feeling much better after initial treatment in the ER with pain medication including Toradol and morphine She also was provided with IV fluids and she also was started on Cipro and Flagyl just to cover for possible diverticulitis on top of the colitis The patient last time she was evaluated here she did not want to be admitted and today she also is feeling good enough to go home she said that her son will stay with her throughout the day just to make sure that she does not have any more symptoms If she have any more symptoms including bleeding or pain the patient to come back to the ER The hemoglobin is 14 and there are no vital changes that correlate with active bleeding Patient was instructed about the importance of come back to the ER in case of any continued symptoms specially that she was refusing to be admitted as she feeling good enough to go home The patient to follow-up with the primary care within 2 to 3 days and to come back to the ER in case of any worsening of the current symptoms or any new symptoms or concerns Lab Data Labs: Lab Results 06/22/25 06/22/25 06/22/25 Range/Units 08:05 08:32 11:09 WBC 9.6 (4.0-11.0) 10^3/uL RBC 4.84 (4.20-5.40) 10^6/uL Hgb 14.7 (12.0-16.0) g/dL Hct 44.9 (36.0-48.0) % MCV 92.8 (81.0-99.0) fL MCH 30.4 (26.7-34.0) pg MCHC 32.7 (29.9-35.2) g/dL RDW 14.2 (11.0-15.0) % Plt Count 142 L (150-450) 10^3/uL MPV 11.4 (9.5-13.5) fL Neut % (Auto) 88.3 H (43.0-75.0) % Lymph % (Auto) 7.5 L (20.5-60.0) % [place] % (Auto) 3.5 (1.7-12.0) % Eos % (Auto) 0.1 L (0.9-7.0) % Baso % (Auto) 0.3 (0.2-2.0) % Neut # (Auto) 8.5 H (1.4-6.5) 10^3/uL Lymph # (Auto) 0.7 L (1.2-3.8) 10^3/uL [place] # (Auto) 0.3 (0.3-0.8) 10^3/uL Eos # (Auto) 0.0 (0.0-0.7) 10^3/uL Baso # (Auto) 0.0 (0.0-0.1) 10^3/uL Abs Immat Gran (auto) 0.03 (0.00-0.03) 10^3/uL Imm/Tot Granulo (auto) 0.3 (0.0-0.5) % Sodium 142 (136-145) mmol/L Potassium 3.8 (3.5-5.1) mmol/L Chloride 104 (98-107) mmol/L Carbon Dioxide 24.8 (21.0-32.0) mmol/L Anion Gap 17.0 BUN 19.0 H (7.0-18.0) mg/dL Creatinine 0.87 (0.55-1.02) mg/dL Est GFR ( Amer) >60 (>=60 mL/min/1.73m^2) Est GFR (Non-Af Amer) >60 (>=60 mL/min/1.73m^2) BUN/Creatinine Ratio 21.8 Glucose 136 H (74-106) mg/dL Lactate 2.5 H* 1.6 (0.4-2.0) mmol/L Calcium 9.6 (8.5-10.1) mg/dL Total Bilirubin 1.0 (0.2-1.0) mg/dL AST 21 (15-37) U/L ALT 26 (14-59) U/L Alkaline Phosphatase 153 H (46-116) U/L Total Protein 7.6 (6.4-8.2) g/dL Albumin 4.4 (3.4-5.0) g/dL Globulin 3.2 g/dL Albumin/Globulin Ratio 1.4 Stool Occult Blood Positive A Discharge Plan Discharge Chief Complaint: Abdominal Pain Clinical Impression: Colitis, Dysentery Patient Disposition: Home, Self-Care Time of Disposition Decision: 11:57 Condition: Good Prescriptions / Home Meds: New metronidazole 500 mg tablet 500 mg PO Q8H 7 Days Qty: 21 0RF ciprofloxacin HCl 500 mg tablet 500 mg PO BID Qty: 14 0RF oxycodone-acetaminophen [Percocet] 5-325 mg tablet 1 tab PO Q8H PRN (Reason: pain) 3 Days Qty: 9 0RF No Action rosuvastatin 20 mg tablet 20 mg PO DAILY Print Language: Serbian Instructions: Colitis (ED) Referrals: Rogelio Elam MD [Primary Care Provider, Family Practice] - 1 week Discharge Date/Time: 06/22/25 13:12
[2025-06-22] MEDS: METRONIDAZOLE/SODIUM CHLORIDE 500 MG/100 ML PREMIX 100 MG IV (11:16)
[2025-06-22] MEDS: CIPROFLOXACIN HCL 500 MG TABLET PO (11:16)
[2025-06-22 11:51] LABS: Lactate/Lactic Acid 1.6 mmol/L (0.4-2.0)
[2025-06-22] MEDS: OXYCODONE HCL/ACETAMINOPHEN 5MG/325MG 1 TAB PO (12:45)
== END 2025-06-22 13:12 | disposition home or self-care (01) ==
PROVIDERS: Emergency Provider Emergency Medicine; PCP Family Medicine
DX: A09 Infectious gastroenteritis and colitis, unspecified (principal)
CPT/HCPCS: 36415; 74177; 80053; 83605; 85025; 96361; 96365; 96375; 99284; G0328; J1836; J1885; J2270; J2405; J3490; Q9967